=== PATIENT | female | born 1955 | race Caucasian/White ===

== ENCOUNTER 2023-08-16 12:48 | Outpatient (OUT) | payer MEDICARE, OTHER, SELFPAY ==
--- NOTE | 2023-08-16 12:53 | CT_ITS ---
[address] [address] Patient Name: CHUCKY DUNLAP MRN: [id number] date: 1955 Sex: F Assigned Patient Location: CT Current Patient Location: CT Accession/Order Number: [id number] Exam Date: 08/16/2023 13:00 Report Date: 08/16/2023 22:44 At the request of: ZOE LATIF Procedure: CT chest wo con EXAMINATION: CT chest wo con HISTORY: multiple pulmonary nodules follow-up COMPARISON: CT chest 08/29/2022 TECHNIQUE: Multi-planar CT images were obtained without and/or with IV contrast as indicated by examination type. Axial, Coronal, and Sagittal images. Dose reduction techniques were achieved by using automated exposure control and/or adjustment of mA and/or kV according to patient size and/or use of iterative reconstruction technique. FINDINGS: LUNGS: Numerous small irregular lesions/patchy opacities within peripheral lung bases with central cavitation; notably smaller than previously seen, with most now 8 mm. PLEURA: No mass, effusion, or pneumothorax. VASCULATURE: No abnormality. KAREEM: No mass or adenopathy. MEDIASTINUM: No mass or adenopathy. CARDIAC: No enlargement, pericardial thickening, or significant calcification. AORTA: No aneurysm or dissection. CHEST WALL: Surgical clips and scarring within left breast and axilla. No axillary mass or lymphadenopathy. BONES: No bone lesion or fracture. LIMITED ABDOMEN: No suspicious findings Limited images of the upper abdomen. OTHER: Negative. CT/CT chest wo con IMPRESSION: 1. Numerous tiny central cavitary lesions within peripheral lung bases, predominately 8 mm in size, which have decreased in size compared to prior study. Lesions are nonspecific but favor infectious etiology. 2. No lymphadenopathy. Electronically authenticated by: BRIAN RODRIGUEZ Date: 08/16/2023 22:44
== END 2023-08-16 12:49 | disposition home or self-care (01) ==
LOC: CT 12:48
PROVIDERS: PCP Family Medicine; Visit Provider Internal Medicine
DX: R91.8 Other nonspecific abnormal finding of lung field (principal)
CPT/HCPCS: 71250

== ENCOUNTER 2023-08-21 09:53 | Outpatient (OUT) | payer MEDICARE, OTHER, SELFPAY ==
[2023-08-21 11:11] LABS: Alanine Aminotransferase 25 U/L (14-59); Aspartate Amino Transferase 13 U/L (15-37); Chol HDL Ratio 4.8; Cholesterol 209 mg/dL (<=200); HDL Cholesterol 44 mg/dL (40-60); Triglycerides 116 mg/dL (<=150); VLDL CHOLESTEROL 23.2 mg/dL
[2023-08-22 09:12] LABS: C-Reactive Protein, Cardiac 17.92 mg/L (0.00-3.00)
== END 2023-08-21 09:54 | disposition home or self-care (01) ==
LOC: LAB 09:54
PROVIDERS: PCP Family Medicine; Visit Provider Internal Medicine Cardiovascular Disease
DX: E78.2 Mixed hyperlipidemia (principal); I25.10 Atherosclerotic heart disease of native coronary artery without angina pectoris; I25.5 Ischemic cardiomyopathy
CPT/HCPCS: 36415; 80061; 84450; 84460; 86140

== ENCOUNTER 2023-08-21 09:58 | Outpatient (OUT) | payer MEDICARE, OTHER, SELFPAY ==
--- NOTE | 2023-08-21 10:37 | XR_ITS ---
The [address] [address] Patient Name: CHUCKY DUNLAP MRN: [id number] date: 1955 Sex: F Assigned Patient Location: LAB Current Patient Location: LAB Accession/Order Number: [id number] Exam Date: 08/21/2023 10:51 Report Date: 08/21/2023 13:58 At the request of: NON-STAFF PHYSICIAN Procedure: XR shoulder ASIM min 2V EXAM: XR hand ASIM min 3v, XR shoulder ASIM min 2V, XR knee ASIM 4V, XR wrist ASIM min 3V, XR foot ASIM min 3V HISTORY: Bilateral Hand and Wrist Pain, RA COMPARISON: None. TECHNIQUE/FINDINGS: Bilateral wrists and bilateral hands: 3 views of the bilateral wrist and 3 views of the bilateral hands were obtained. There is moderate bilateral joint space narrowing with marginal spurring at the radiocarpal, triscaphe, first carpometacarpal, metacarpophalangeal and interphalangeal joints. No evidence of erosive changes. Bilateral knees: There is severe narrowing of the bilateral tibiofemoral and patellofemoral compartments with marginal tricompartmental spurring along with spurring of the tibial spines. Subchondral sclerosis and irregularity is seen. Bilateral shoulders: No evidence of erosive changes. Severe osteoarthritis is seen at the bilateral acromioclavicular joint and mild osteoarthritis is seen at the bilateral glenohumeral joints. The lungs show mild emphysematous changes. Bilateral feet: Left foot: Evidence of ORIF at the distal fibula and medial malleolus of the tibia. Evidence of osteoarthritis at the tarsometatarsal, metatarsophalangeal and interphalangeal joints without evidence of erosive changes. Plantar calcaneal spur. Enthesopathic changes. Right foot: Plantar calcaneal spur, enthesopathic changes. Severe osteoarthritis is seen at the first tarsometatarsal joint and at the interphalangeal joints of the toes. XR/XR shoulder ASIM min 2V IMPRESSION: Bilateral wrists and bilateral hands: 1. Moderate to severe bilateral polyarticular osteoarthritis. 2. No evidence of erosive changes. Bilateral knees: 1. Advanced osteoarthritis is seen at the bilateral knees worst at the medial compartments. 2. Chondrocalcinosis. Bilateral shoulders: 1. Severe bilateral acromioclavicular joint osteoarthritis and mild glenohumeral joint osteoarthritis. 2. No erosive changes. Bilateral feet: 1. Moderate to severe polyarticular osteoarthritis, worst at the interphalangeal joints of the toes. 2. Bilateral plantar calcaneal spur. 3. Enthesopathic changes. Electronically authenticated by: NIRMAL VELA Date: 08/21/2023 13:58
--- NOTE | 2023-08-21 10:37 | XR_ITS ---
The [address] [address] Patient Name: CHUCKY DUNLAP MRN: [id number] date: 1955 Sex: F Assigned Patient Location: LAB Current Patient Location: LAB Accession/Order Number: [id number] Exam Date: 08/21/2023 10:51 Report Date: 08/21/2023 13:58 At the request of: NON-STAFF PHYSICIAN Procedure: XR wrist ASIM min 3V EXAM: XR hand ASIM min 3v, XR shoulder ASIM min 2V, XR knee ASIM 4V, XR wrist ASIM min 3V, XR foot ASIM min 3V HISTORY: Bilateral Hand and Wrist Pain, RA COMPARISON: None. TECHNIQUE/FINDINGS: Bilateral wrists and bilateral hands: 3 views of the bilateral wrist and 3 views of the bilateral hands were obtained. There is moderate bilateral joint space narrowing with marginal spurring at the radiocarpal, triscaphe, first carpometacarpal, metacarpophalangeal and interphalangeal joints. No evidence of erosive changes. Bilateral knees: There is severe narrowing of the bilateral tibiofemoral and patellofemoral compartments with marginal tricompartmental spurring along with spurring of the tibial spines. Subchondral sclerosis and irregularity is seen. Bilateral shoulders: No evidence of erosive changes. Severe osteoarthritis is seen at the bilateral acromioclavicular joint and mild osteoarthritis is seen at the bilateral glenohumeral joints. The lungs show mild emphysematous changes. Bilateral feet: Left foot: Evidence of ORIF at the distal fibula and medial malleolus of the tibia. Evidence of osteoarthritis at the tarsometatarsal, metatarsophalangeal and interphalangeal joints without evidence of erosive changes. Plantar calcaneal spur. Enthesopathic changes. Right foot: Plantar calcaneal spur, enthesopathic changes. Severe osteoarthritis is seen at the first tarsometatarsal joint and at the interphalangeal joints of the toes. XR/XR wrist ASIM min 3V IMPRESSION: Bilateral wrists and bilateral hands: 1. Moderate to severe bilateral polyarticular osteoarthritis. 2. No evidence of erosive changes. Bilateral knees: 1. Advanced osteoarthritis is seen at the bilateral knees worst at the medial compartments. 2. Chondrocalcinosis. Bilateral shoulders: 1. Severe bilateral acromioclavicular joint osteoarthritis and mild glenohumeral joint osteoarthritis. 2. No erosive changes. Bilateral feet: 1. Moderate to severe polyarticular osteoarthritis, worst at the interphalangeal joints of the toes. 2. Bilateral plantar calcaneal spur. 3. Enthesopathic changes. Electronically authenticated by: NIRMAL VELA Date: 08/21/2023 13:58
--- NOTE | 2023-08-21 10:37 | XR_ITS ---
The [address] [address] Patient Name: CHUCKY DUNLAP MRN: [id number] date: 1955 Sex: F Assigned Patient Location: LAB Current Patient Location: LAB Accession/Order Number: [id number] Exam Date: 08/21/2023 10:50 Report Date: 08/21/2023 13:58 At the request of: NON-STAFF PHYSICIAN Procedure: XR hand ASIM min 3v EXAM: XR hand ASIM min 3v, XR shoulder ASIM min 2V, XR knee ASIM 4V, XR wrist ASIM min 3V, XR foot ASIM min 3V HISTORY: Bilateral Hand and Wrist Pain, RA COMPARISON: None. TECHNIQUE/FINDINGS: Bilateral wrists and bilateral hands: 3 views of the bilateral wrist and 3 views of the bilateral hands were obtained. There is moderate bilateral joint space narrowing with marginal spurring at the radiocarpal, triscaphe, first carpometacarpal, metacarpophalangeal and interphalangeal joints. No evidence of erosive changes. Bilateral knees: There is severe narrowing of the bilateral tibiofemoral and patellofemoral compartments with marginal tricompartmental spurring along with spurring of the tibial spines. Subchondral sclerosis and irregularity is seen. Bilateral shoulders: No evidence of erosive changes. Severe osteoarthritis is seen at the bilateral acromioclavicular joint and mild osteoarthritis is seen at the bilateral glenohumeral joints. The lungs show mild emphysematous changes. Bilateral feet: Left foot: Evidence of ORIF at the distal fibula and medial malleolus of the tibia. Evidence of osteoarthritis at the tarsometatarsal, metatarsophalangeal and interphalangeal joints without evidence of erosive changes. Plantar calcaneal spur. Enthesopathic changes. Right foot: Plantar calcaneal spur, enthesopathic changes. Severe osteoarthritis is seen at the first tarsometatarsal joint and at the interphalangeal joints of the toes. XR/XR hand ASIM min 3v IMPRESSION: Bilateral wrists and bilateral hands: 1. Moderate to severe bilateral polyarticular osteoarthritis. 2. No evidence of erosive changes. Bilateral knees: 1. Advanced osteoarthritis is seen at the bilateral knees worst at the medial compartments. 2. Chondrocalcinosis. Bilateral shoulders: 1. Severe bilateral acromioclavicular joint osteoarthritis and mild glenohumeral joint osteoarthritis. 2. No erosive changes. Bilateral feet: 1. Moderate to severe polyarticular osteoarthritis, worst at the interphalangeal joints of the toes. 2. Bilateral plantar calcaneal spur. 3. Enthesopathic changes. Electronically authenticated by: NIRMAL VELA Date: 08/21/2023 13:58
--- NOTE | 2023-08-21 10:37 | XR_ITS ---
The [address] [address] Patient Name: CHUCKY DUNLAP MRN: [id number] date: 1955 Sex: F Assigned Patient Location: LAB Current Patient Location: LAB Accession/Order Number: [id number] Exam Date: 08/21/2023 10:51 Report Date: 08/21/2023 13:58 At the request of: NON-STAFF PHYSICIAN Procedure: XR foot ASIM min 3V EXAM: XR hand ASIM min 3v, XR shoulder ASIM min 2V, XR knee ASIM 4V, XR wrist ASIM min 3V, XR foot ASIM min 3V HISTORY: Bilateral Hand and Wrist Pain, RA COMPARISON: None. TECHNIQUE/FINDINGS: Bilateral wrists and bilateral hands: 3 views of the bilateral wrist and 3 views of the bilateral hands were obtained. There is moderate bilateral joint space narrowing with marginal spurring at the radiocarpal, triscaphe, first carpometacarpal, metacarpophalangeal and interphalangeal joints. No evidence of erosive changes. Bilateral knees: There is severe narrowing of the bilateral tibiofemoral and patellofemoral compartments with marginal tricompartmental spurring along with spurring of the tibial spines. Subchondral sclerosis and irregularity is seen. Bilateral shoulders: No evidence of erosive changes. Severe osteoarthritis is seen at the bilateral acromioclavicular joint and mild osteoarthritis is seen at the bilateral glenohumeral joints. The lungs show mild emphysematous changes. Bilateral feet: Left foot: Evidence of ORIF at the distal fibula and medial malleolus of the tibia. Evidence of osteoarthritis at the tarsometatarsal, metatarsophalangeal and interphalangeal joints without evidence of erosive changes. Plantar calcaneal spur. Enthesopathic changes. Right foot: Plantar calcaneal spur, enthesopathic changes. Severe osteoarthritis is seen at the first tarsometatarsal joint and at the interphalangeal joints of the toes. XR/XR foot ASIM min 3V IMPRESSION: Bilateral wrists and bilateral hands: 1. Moderate to severe bilateral polyarticular osteoarthritis. 2. No evidence of erosive changes. Bilateral knees: 1. Advanced osteoarthritis is seen at the bilateral knees worst at the medial compartments. 2. Chondrocalcinosis. Bilateral shoulders: 1. Severe bilateral acromioclavicular joint osteoarthritis and mild glenohumeral joint osteoarthritis. 2. No erosive changes. Bilateral feet: 1. Moderate to severe polyarticular osteoarthritis, worst at the interphalangeal joints of the toes. 2. Bilateral plantar calcaneal spur. 3. Enthesopathic changes. Electronically authenticated by: NIRMAL VELA Date: 08/21/2023 13:58
--- NOTE | 2023-08-21 10:37 | XR_ITS ---
The [address] [address] Patient Name: CHUCKY DUNLAP MRN: [id number] date: 1955 Sex: F Assigned Patient Location: LAB Current Patient Location: LAB Accession/Order Number: [id number] Exam Date: 08/21/2023 10:51 Report Date: 08/21/2023 13:58 At the request of: NON-STAFF PHYSICIAN Procedure: XR knee ASIM 4V EXAM: XR hand ASIM min 3v, XR shoulder ASIM min 2V, XR knee ASIM 4V, XR wrist ASIM min 3V, XR foot ASIM min 3V HISTORY: Bilateral Hand and Wrist Pain, RA COMPARISON: None. TECHNIQUE/FINDINGS: Bilateral wrists and bilateral hands: 3 views of the bilateral wrist and 3 views of the bilateral hands were obtained. There is moderate bilateral joint space narrowing with marginal spurring at the radiocarpal, triscaphe, first carpometacarpal, metacarpophalangeal and interphalangeal joints. No evidence of erosive changes. Bilateral knees: There is severe narrowing of the bilateral tibiofemoral and patellofemoral compartments with marginal tricompartmental spurring along with spurring of the tibial spines. Subchondral sclerosis and irregularity is seen. Bilateral shoulders: No evidence of erosive changes. Severe osteoarthritis is seen at the bilateral acromioclavicular joint and mild osteoarthritis is seen at the bilateral glenohumeral joints. The lungs show mild emphysematous changes. Bilateral feet: Left foot: Evidence of ORIF at the distal fibula and medial malleolus of the tibia. Evidence of osteoarthritis at the tarsometatarsal, metatarsophalangeal and interphalangeal joints without evidence of erosive changes. Plantar calcaneal spur. Enthesopathic changes. Right foot: Plantar calcaneal spur, enthesopathic changes. Severe osteoarthritis is seen at the first tarsometatarsal joint and at the interphalangeal joints of the toes. XR/XR knee ASIM 4V IMPRESSION: Bilateral wrists and bilateral hands: 1. Moderate to severe bilateral polyarticular osteoarthritis. 2. No evidence of erosive changes. Bilateral knees: 1. Advanced osteoarthritis is seen at the bilateral knees worst at the medial compartments. 2. Chondrocalcinosis. Bilateral shoulders: 1. Severe bilateral acromioclavicular joint osteoarthritis and mild glenohumeral joint osteoarthritis. 2. No erosive changes. Bilateral feet: 1. Moderate to severe polyarticular osteoarthritis, worst at the interphalangeal joints of the toes. 2. Bilateral plantar calcaneal spur. 3. Enthesopathic changes. Electronically authenticated by: NIRMAL VELA Date: 08/21/2023 13:58
[2023-08-21 10:40] LABS: Basophils Absolute Auto 0.1 10^3/uL (0.0-0.1); Basophils Percent Auto 0.9 % (0.2-2.0); Eosinophils Absolute Auto 0.3 10^3/uL (0.0-0.7); Eosinophils Percent Auto 2.7 % (0.9-7.0); Hematocrit 35.4 % (36.0-48.0); Immature Granulocytes Abs Auto 0.04 10^3/uL (0.00-0.03); Immature Granulocytes Pct Auto 0.4 % (0.0-0.5); Lymphocytes Absolute Auto 2.3 10^3/uL (1.2-3.8); Lymphocytes Percent Auto 22.1 % (20.5-60.0); Mean Corpuscular HGB Conc 31.1 g/dL (29.9-35.2); Mean Corpuscular Hemoglobin 30.5 pg (26.7-34.0); Mean Corpuscular Volume 98.1 fL (81.0-99.0); Mean Platelet Volume 11.8 fL (9.5-13.5); Monocytes Percent Auto 9.5 % (1.7-12.0); Neutrophils Absolute Auto 6.6 10^3/uL (1.4-6.5); Neutrophils Percent Auto 64.4 % (43.0-75.0); Platelet Count 245 10^3/uL (150-450); Red Blood Count 3.61 10^6/uL (4.20-5.40); White Blood Count 10.3 10^3/uL (4.0-11.0)
[2023-08-21 10:44] LABS: Erythrocyte Sedimentation Rate 100 mm/hr (<=30)
[2023-08-21 11:12] LABS: Alanine Aminotransferase 23 U/L (14-59); Albumin Globulin Ratio 0.7; Alkaline Phosphatase 83 U/L (46-116); Anion Gap 11.6; Aspartate Amino Transferase 11 U/L (15-37); BUN Creatinine Ratio 16.3; Bilirubin Total 0.4 mg/dL (0.2-1.0); Calcium 9.3 mg/dL (8.5-10.1); Carbon Dioxide 27.1 mmol/L (21.0-32.0); Chloride 105 mmol/L (98-107); Estimated GFR (African America >60 (>=60); Estimated GFR (Non-African Ame 53 (>=60); Globulin 4.1 g/dL; Glucose 85 mg/dL (74-106); Potassium 3.7 mmol/L (3.5-5.1); Sodium 140 mmol/L (136-145); Total Protein 7.1 g/dL (6.4-8.2); Uric Acid 6.9 mg/dL (2.6-6.0)
[2023-08-21 12:05] LABS: Bilirubin Urine NEGATIVE (NEGATIVE); Blood Urine NEGATIVE (NEGATIVE); Clarity Urine CLEAR (CLEAR); Color Urine LT. YELLOW (YELLOW); Glucose Urine UA NEGATIVE (NEGATIVE); Ketones Urine NEGATIVE (NEGATIVE); Leukocyte Esterase Urine SMALL (NEGATIVE); Nitrite Urine NEGATIVE (NEGATIVE); Protein Urine NEGATIVE (NEG/TRACE); Specific Gravity Urine 1.015 (1.005-1.025); Urobilinogen Urine 0.2 EU/dL (0.2-1.0)
[2023-08-22 04:09] LABS: Rheumatoid Factor (RF) 376.7 IU/mL (<14.0)
[2023-08-22 06:09] LABS: HBsAg Screen Negative (Negative); HCV Antibody Non Reactive (Non Reactive); Hep B Core Ab, IgM Negative (Negative); Hepatitis B Surf Ab Quant <3.1 mIU/mL (Immunity>9.9)
[2023-08-22 12:08] LABS: Anti-CCP Ab, IgG/IgA >250 units (0-19)
[2023-08-23 09:09] LABS: QuantiFERON-TB Gold Plus Negative (Negative)
[2023-08-23 16:09] LABS: Antinuclear Antibodies, IFA Positive (.)
== END 2023-08-21 09:59 | disposition home or self-care (01) ==
LOC: LAB 10:01
PROVIDERS: PCP Family Medicine
DX: E78.2 Mixed hyperlipidemia (principal); I25.10 Atherosclerotic heart disease of native coronary artery without angina pectoris; I25.5 Ischemic cardiomyopathy; M05.9 Rheumatoid arthritis with rheumatoid factor, unspecified; I10 Essential (primary) hypertension; E11.9 Type 2 diabetes mellitus without complications; M17.0 Bilateral primary osteoarthritis of knee; M11.262 Other chondrocalcinosis, left knee; M11.261 Other chondrocalcinosis, right knee; M19.012 Primary osteoarthritis, left shoulder; M19.011 Primary osteoarthritis, right shoulder; M19.072 Primary osteoarthritis, left ankle and foot; M19.071 Primary osteoarthritis, right ankle and foot; M77.32 Calcaneal spur, left foot; M77.31 Calcaneal spur, right foot
CPT/HCPCS: 36415; 73030; 73110; 73130; 73564; 73630; 80053; 80061; 81003; 84450; 84460; 84550; 85025; 85652; 86038; 86140; 86200; 86430; 86431; 86480; 86706; 86803; 87340

== ENCOUNTER 2023-09-28 12:26 | Outpatient (OUT) | payer MEDICARE, OTHER, SELFPAY ==
[2023-09-28 13:07] LABS: Basophils Absolute Auto 0.1 10^3/uL (0.0-0.1); Basophils Percent Auto 0.5 % (0.2-2.0); Eosinophils Absolute Auto 0.2 10^3/uL (0.0-0.7); Eosinophils Percent Auto 1.8 % (0.9-7.0); Hematocrit 35.3 % (36.0-48.0); Hemoglobin 10.9 g/dL (12.0-16.0); Immature Granulocytes Abs Auto 0.05 10^3/uL (0.00-0.03); Immature Granulocytes Pct Auto 0.5 % (0.0-0.5); Lymphocytes Absolute Auto 1.8 10^3/uL (1.2-3.8); Lymphocytes Percent Auto 18.2 % (20.5-60.0); Mean Corpuscular HGB Conc 30.9 g/dL (29.9-35.2); Mean Corpuscular Hemoglobin 30.4 pg (26.7-34.0); Mean Corpuscular Volume 98.3 fL (81.0-99.0); Mean Platelet Volume 11.2 fL (9.5-13.5); Monocytes Absolute Auto 0.4 10^3/uL (0.3-0.8); Monocytes Percent Auto 4.2 % (1.7-12.0); Neutrophils Absolute Auto 7.5 10^3/uL (1.4-6.5); Neutrophils Percent Auto 74.8 % (43.0-75.0); Platelet Count 261 10^3/uL (150-450); Red Blood Count 3.59 10^6/uL (4.20-5.40); Red Cell Distribution Width 14.8 % (11.0-15.0)
[2023-09-28 13:30] LABS: Alanine Aminotransferase 31 U/L (14-59); Estimated GFR (African America 59 (>=60); Estimated GFR (Non-African Ame 49 (>=60)
[2023-09-28 13:33] LABS: C Reactive Protein 1.87 mg/dL (<=0.50)
[2023-09-28 13:41] LABS: Erythrocyte Sedimentation Rate 82 mm/hr (<=30)
== END 2023-09-28 12:27 | disposition home or self-care (01) ==
LOC: LAB 12:26
PROVIDERS: PCP Family Medicine
DX: M05.9 Rheumatoid arthritis with rheumatoid factor, unspecified (principal)
CPT/HCPCS: 36415; 82042; 82565; 84460; 85025; 85652; 86140

== ENCOUNTER 2023-11-02 12:12 | Outpatient (OUT) | payer MEDICARE, OTHER, SELFPAY ==
--- OUTSIDE RECORDS SUMMARY | 2023-11-02 12:16 | XMS_ITS | CCD ---
Author Name Unknown Address [address] [place] [address] Organization [facility] Care Team Providers Care Trial Justice Name Role Phone Hussain Reese Good Unavailable Unavailable Unavailable DO Reese Nixon Primary Care Provider MD Marcin Patel Attending Provider DO Salty Gonzalez Attending Provider DO Salty Gonzalez Referring Provider MD Floresita Gonzalez Attending Provider DO Reese Nixon Primary Care Provider MD Marcin Patel Attending Provider [phone] DO Reese Nixon Primary Care Provider DO Salty Gonzalez Referring Provider MD Floresita Gonzalez Attending Provider RASHIDA, DR SADLER Attending Unavailable HALADAY, DR SADLER Admitting Unavailable HALADAY, DR SADLER Consulting Unavailable HOUSE, DR LEIGH Primary Care Unavailable HALADAY, DR SADLER Admitting Unavailable HALADAY, DR SADLER Consulting Unavailable HOUSE, DR LEIGH Primary Care Unavailable HALADAY, DR SADLER Attending Unavailable HOUSE, DR LEIGH Primary Care Unavailable HOUSE, DR LEIGH Consulting Unavailable HOUSE, DR LEIGH Attending Unavailable HOUSE, DR LEIGH Admitting Unavailable HALADAY, DR SADLER Attending Unavailable HALADAY, DR SADLER Admitting Unavailable HALADAY, DR SADLER Consulting Unavailable HUSSAIN, DR LEIGH Primary Care Unavailable STEVEN, DR LUKE Cordoba Attending Unavailabl cleopatra HERRMANN, DR LUKE Cordoba Admitting Unavailabl e HUSSAIN, DR LEIGH Primary Care Unavailable STEVEN, DR LUKE Cordoba Consulting Unavailabl e RASHIDA, DR SADLER Attending Unavailable HALADAY, DR SADLER Admitting Unavailable HALADAY, DR SADLER Consulting Unavailable HOUSE, DR LEIGH Primary Care Unavailable STEVEN, DR LUKE Cordoba Admitting Unavailabl e HALADAY, DR SADLER Consulting Unavailable HOUSE, DR LEIGH Primary Care Unavailable STEVEN, DR LUKE Cordoba Attending Unavailabl e STEVEN, DR LUKE Cordoba Consulting Unavailabl e HALADAY, DR SADLER Attending Unavailable HALADAY, DR SADLER Admitting Unavailable HALADAY, DR SADLER Consulting Unavailable HOUSE, DR LEIGH Primary Care Unavailable SAMSA, ZOE Attending Unavailable SAMSA, ZOE Admitting Unavailable WEST, DR ISAAC Siu Consulting Unavailable HOUSE, DR LEIGH Primary Care Unavailable SAMSA, ZOE Consulting Unavailable HALADAY, DR SADLER Attending Unavailable HALADAY, DR SADLER Admitting Unavailable HALADAY, DR SADLER Consulting Unavailable HOUSE, DR LEIGH Primary Care Unavailable SAMSA, ZOE Attending Unavailable SAMSA, ZOE Admitting Unavailable SAMSA, ZOE Consulting Unavailable HOUSE, DR LEIGH Primary Care Unavailable HOUSE, DR LEIGH Attending Unavailable HOUSE, DR LEIGH Admitting Unavailable HOUSE, DR LEIGH Primary Care Unavailable WEST, DR ISAAC Siu Consulting Unavailable HOUSE, DR LEIGH Consulting Unavailable House, DO Leigh Primary Care Provider DO Salty Gonzalez Referring Provider [phone] MD Floresita Gonzalez Attending Provider Hussain, Dr. Reese [facility] Lisava dora Herrmann, Dr. Luke Lloyd Attending Sheila Herrmann, Dr. Luke Lloyd Referring Sheila Nixon, Dr. Reese [facility] Lisava dora Herrmann, Dr. Luke Lloyd Attending DO Reese Martinez Primary Care Provider DO Salty Gonzalez Referring Provider [phone] MD Floresita Gonzalez Attending Provider [phone] [place] Reese KELLER Primary Care Provider LUKE HERRMANN Attending Unavailable HUSSAIN, REESE VERDUZCO Primary Care Unavailab le Hussain, DO Leigh Primary Care Provider [phone] DO Salty Gonzalez Referring Provider MD Floresita Gonzalez Attending Provider [phone] Reese Nixon Primary Care Unavailable Salty Gonzalez Admitting Unavailable Salty Gonzalez Attending Unavailable Reese Nixon Primary Care Unavailable Floresita Gonzalez Admitting Unavailable Floresita Gonzalez Attending Unavailable Salty Gonzalez Referring Unavailable Ant Gregory MD Attending Unavailable REESE NIXON Primary Care Unavailable Ant Gregory MD Attending Unavailable REESE NIXON Primary Care Unavailable Ant Gregory MD Attending Unavailable REESE NIXON Primary Care Unavailable Medications Current Medications Medication Drug Class(es) Dates Sig (Normalized) Sig (Original) acetaminophen 325 mg / oxyCODONE hydrochloride 5 mg oral tablet (20 sources) Opioid Agonist Start: 08-23-2021 take 1 tablet by mouth three times daily Oxycodone-Acetamin ophen (Percocet) 5-325 mg Tablet Active 1 TAB PO Three times daily August 23, 2021 12:00am atorvastatin 40 mg oral tablet (20 sources) HMG-CoA Reductase Inhibitor Start: 12-14-2021 take 80 mg by mouth once daily at bedtime Atorvastatin Active 80 MG PO Daily at bedtime December 14, 2021 12:00am Start: 10-28-2021 take 1 tablet by ivanna th once daily at bedtime atorvastatin (Lipitor) 40 mg tablet Take 1 tablet (40 mg) by mouth once daily at bedtime. 0 10/28/2021 Active Start: 08-27-2021 End: 12-14-2021 take 80 mg by mouth once daily in the evening Atorvastatin Discontinued 80 MG PO Every evening 30 August 27, 2021 12:00am December 14, 2021 2:17pm carvedilol 12.5 mg oral tablet (20 sources) alpha-Adrenergic Althea, beta-Adrenergic Althea Start: 10-12-2021 take 12.5 mg by mouth twice daily Carvedilol Active 12.5 MG PO Twice daily December 14, 2021 12:00am Start: 08-31-2021 take 1 tablet by ivanna th twice daily Carvedilol 6.25 MG Oral Tablet Take 1 tablet twice daily Quantity: 180 Refills: 3 Ordered: 31-Aug-2021 Luke Herrmann DO Start : 31-Aug-2021 Active clopidogrel 75 mg oral tablet (20 sources) P2Y12 Platelet Inhibitor Start: 09-03-2021 End: 10-25-2024 take 75 mg by mouth once daily in the morning Clopidogrel Active 75 MG PO Every morning December 14, 2021 12:00am folic acid 1 mg oral tablet (1 source) Start: 10-25-2023 take 1 mg by mouth once daily Folic Acid Active 1 MG PO Daily October 25, 2023 12:00am ibuprofen 600 mg oral tablet (7 sources) Nonsteroidal Anti-inflammatory Drug Start: 12-28-2021 Ibuprofen Active 600 MG PO EVERY 4-6 HOURS 04 08December 27, 2021 11:00pm do not exceed 4 doses in a 24 hour period 3 ml insulin aspart protamine, human 70 unt/ml / insulin aspart, human 30 unt/ml pen injector (14 sources) Insulin Analog Start: 08-26-2021 Insulin Asp Prt-Insulin Aspart (Novolog Mix 70-30flexpen U-100) 100 unit/mL (70-30) insulin pen Active 34 UNIT SUBCUT Every morning August 26, 2021 12:00am Start: 08-26-2021 Insulin Asp Pr t-Insulin Aspart (Novolog Mix 70-30flexpen U- 100) 100 unit/mL (70-30) insulin pen Active 15 UNIT SUBCUT Every evening August 26, 2021 12:00am insulin aspart, human 100 un t/ml injectable solution (20 sources) Insulin Analog insulin aspart ( NovoLOG) 100 unit/mL refill for patient own pump Inject under the skin. 0 Active NovoLOG FlexPen 100 UNIT/ML SOLN INJECT SUBCUTANEOUSLY DIRECTED. Quantity: 0 Refills: 0 Ordered: 30-Aug-2021 DO Active 3 ml insulin degludec 100 unt/ml pen injector (20 sources) Insulin Analog Start: 01-10-2022 inject 10 [IU] by subcutaneous injection once daily Insulin Degludec (Tresiba Flextouch U-100) 100 unit/mL (3 mL) Insulin Pen Active 10 UNIT SUBCUT Daily January 10, 2022 2:04pm Start: 08-26-2021 End: 01-13-2022 Insulin Degludec (Tresiba Fl extouch U-100) 100 unit/mL (3 mL) insulin pen Discontinued 60 UNIT SUBCUT Daily at bedtime August 26, 2021 12:00am January 13, 2022 7:18am insulin degludec (Tresiba U-100 Insulin) 100 unit/mL injection Inject under the skin. 0 Active Tresiba 100 UNIT /ML Subcutaneous Solution INJECT SUBCUTANEOUSLY DIRECTED Quantity: 0 Refills: 0 Ordered: 30-Aug-2021 DO Active Insulin Degludec (Tresiba Flextouch U-100) 100 unit/mL (3 mL) Insulin Pen (4 sources) Start: 01-10-2022 Insulin Deglud ec (Tresiba Flextouch U-100) 100 unit/mL (3 mL) Insulin Pen Active 60 UNIT SUBCUT Daily January 10, 2022 12:00am Start: 01-10-2022 Insulin Deglud ec (Tresiba Flextouch U-100) 100 unit/mL (3 mL) Insulin Pen Active 60 UNIT SUBCUT Daily January 09, 2022 11:00pm levothyroxine sodium 0.112 mg oral tablet (20 sources) l-Thyroxine Start: 08-23-2021 take 1 tablet by mouth once daily Levothyroxine (Synthroid) 112 mcg Tablet Active 112 MCG PO Daily August 23, 2021 12:00am 0.3 ml methotrexate 50 mg/ml auto-injector (1 source) Folate Analog Metabolic Inhibitor Start: 10-25-2023 inject 15 mg by subcutaneous injection every week Methotrexate (Pf) Active 15 MG SUBCUT every week October 25, 2023 12:00am nitroglycerin 0.4 mg sublingual tablet (20 sources) Nitrate Vasodilator Start: 12-21-2021 nitroglycerin (Nitrostat) 0.[address] 1 TABLET UNDER THE TONGUE EVERY 5 MINUTES FOR UP TO 3 DOSES NEEDED FOR CHEST PAIN.CALL 911 IF PAIN PERSISTS. 0 12/21/2021 Active Start: 08-27-2021 Nitroglycerin Active 0.4 MG SUBLINGUAL Every 5 minutes x 3 doses August 27, 2021 12:00am predniSONE 10 mg oral tablet (8 sources) Start: 10-25-2023 take 10 mg by mouth once daily Prednisone Active 10 MG PO Daily October 25, 2023 12:00am Start: 12-14-2021 End: 07-24-2023 take 5 mg by mouth once daily Prednisone Discontinued 5 MG PO Daily December 14, 2021 12:00am July 24, 2023 11:04am sacubitril 49 mg / valsartan 51 mg oral tablet (20 sources) Angiotensin 2 Receptor Althea Start: 08-31-2021 End: 08-09-2024 take 1 tablet by mouth twice daily Sacubitril-Valsartan (Entresto) 49-51 mg tablet Active 1 TAB PO Twice daily December 14, 2021 12:00am Start: 08-31-2021 take 1 tablet by ivanna th twice daily Entresto 24-26 MG Oral Tablet TAKE 1 TABLET BY MOUTH TWICE A DAY Quantity: 180 Refills: 3 Ordered: 31-Aug-2021 Luke Herrmann DO Start : 31-Aug-2021 Active spironolactone 25 mg oral tablet (20 sources) Aldosterone Antagonist Start: 08-10-2023 take 1 tablet by mouth once daily spironolactone (Aldactone) 25 mg tablet Indications: Primary hypertension Take 1 tablet (25 mg) by mouth once daily. 90 tablet 3 08/10/2023 Active Start: 10-28-2021 End: 08-10-2023 take 25 mg by mouth once daily in the morning Spironolactone Discontinued 25 MG PO Every morning December 14, 2021 12:00am December 28, 2021 7:15am Start: 10-12-2021 take 0.5 tablet by m outh once daily Spironolactone 25 MG Oral Tablet TAKE 0.5 TABLET Daily Quantity: 45 Refills: 3 Ordered: 12-Oct-2021 Salima Nguyễn Start : 12-Oct-2021 Active new start Completed/Discontinued Medications Medication Drug Class(es) Dates Sig (Normalized) Sig (Original) anastrozole 1 mg oral tablet (13 sources) Aromatase Inhibitor Start: 02-03-20 End: 04-04-20 22 take 1 mg by mouth once daily Anastrozole Discontinued 1 MG PO Daily February 01, 2022 11:00pm April 04, 2022 10:47am aspirin 81 mg delayed release oral tablet (20 sources) Platelet Aggregation Inhibitor, Nonsteroidal Anti-inflammatory Drug Start: 08-27-20 End: 10-25-19 24 take 81 mg by mouth once daily Aspirin Discontinued 81 MG PO Daily December 14, 2021 2:19pm October 25, 2023 12:56pm colchicine 0.6 mg oral tablet (13 sources) Start: 08-27-20 End: 12-15-19 22 take 0.6 mg by mouth once daily Colchicine Discontinued 0.6 MG PO Daily 14 14 August 27, 2021 12:00am December 14, 2021 2:17pm furosemide 20 mg oral tablet (3 sources) Loop Diuretic Start: 08-31-20 21 take 1 tablet by mouth once daily Furosemide 20 MG Oral Tablet TAKE 1 TABLET DAILY for 2 weeks Quantity: 14 Refills: 1 Ordered: 31-Aug-2021 Luke Herrmann DO Start : 31-Aug-2021 Active call for refills hydroCHLOROthiazide 12.5 mg / olmesartan medoxomil 40 mg oral tablet (7 sources) Thiazide Diuretic, Angiotensin 2 Receptor Althea Start: 08-26-20 21 End: 08-27-20 21 take 1 tablet by mouth once daily Olmesartan-Hydrochlor othiazide Discontinued 1 TAB PO Daily August 26, 2021 12:00am August 27, 2021 2:52pm hydroxychloroquine sulfate 200 mg oral tablet (7 sources) Antimalarial, Antirheumatic Agent Start: 12-15-19 22 End: 10-25-19 24 take 200 mg by mouth once daily in the morning Hydroxychloroquine Discontinued 200 MG PO Every morning December 14, 2021 12:00am October 25, 2023 12:56pm 3 ml insulin lispro 100 unt/ml pen injector (7 sources) Insulin Analog Start: 08-23-20 End: 08-26-20 21 Insulin Lispro (Humalog Kwikpen Insulin) 100 unit/mL Insulin Pen Discontinued SUBCUT August 23, 2021 12:00am August 26, 2021 2:22pm leflunomide 20 mg oral tablet (13 sources) Antirheumatic Agent Start: 08-23-20 21 End: 10-25-19 24 take 20 mg by mouth once daily Leflunomide Discontinued 20 MG PO Daily August 23, 2021 12:00am October 25, 2023 12:59pm letrozole 2.5 mg oral tablet (6 sources) Aromatase Inhibitor Start: 04-20-20 23 End: 08-01-20 23 take 2.5 mg by mouth once daily Letrozole Discontinued 2.5 MG PO Daily July 25, 2023 1:23pm August 01, 2023 7:19am methylPREDNISolone 4 mg oral tablet (1 source) Corticosteroid Start: 07-24-20 23 End: 10-25-19 24 take 1 tablet by mouth once daily Methylprednisolone (Medrol (Hussain)) 4 mg Tablets,Dose Pack Discontinued 4 MG PO Daily July 23, 2023 11:00pm October 25, 2023 12:57pm mometasone furoate 1 mg/ml topical cream (5 sources) Corticosteroid Start: 02-03-20 End: 10-25-19 Mometasone Discontinued 1 APPLIC TOPICAL Daily 45 February 01, 2022 11:00pm October 25, 2023 12:56pm nystatin 100 unt/mg topical powder (8 sources) Polyene Antifungal Start: 10-13-20 End: 10-25-19 Nystatin (Nystop) 100,000 unit/gram Powder Discontinued 1 APPLIC TOPICAL Twice daily October 13, 2022 8:55am October 25, 2023 12:57pm dispense one bottle olmesartan medoxomil 40 mg oral tablet (7 sources) Angiotensin 2 Receptor Althea Start: 08-23-20 End: 08-26-20 take 1 tablet by mouth once daily Olmesartan (Benicar) 40 mg Tablet Discontinued 40 MG PO Daily August 23, 2021 12:00am August 26, 2021 2:24pm prednisoLONE 5 mg oral tablet (13 sources) Corticosteroid take 1 tablet by mouth once daily prednisoLONE 5 MG Oral Tablet Take 1 tablet daily Quantity: 0 Refills: 0 Ordered: 28-Oct-2021 DO Active ticagrelor 90 mg oral tablet (9 sources) Start: 08-27-20 End: 12-15-19 take 1 tablet by mouth twice daily Ticagrelor (Brilinta) 90 mg Tablet Discontinued 90 MG PO Twice daily 180 90 August 27, 2021 12:00am December 14, 2021 2:19pm Problems Active Problems Problem Classification Problem Date Documented Da te Episodic/Chronic Acute myocardial infarction (20 sources) Myocardial infarction; Translations: [Acute myocardial infarction of unspecified site, episode of care unspecified] 08-23-2021 Chronic Cancer of breast (20 sources) Malignant tumor of breast ; Translations: [Malignant neoplasm of unspecified site of left female breast] 01-12-2022 Chronic Coronary atherosclerosis and other heart disease (20 sources) Ischemic myocardial dysfunction; Translations: [Other specified forms of chronic ischemic heart disease] Onset: 12-28-2021 Chronic Coronary atherosclerosis and other heart disease (2 sources) Presence of coronary angioplasty implant and graft; Translations: [Presence of coronary angioplasty implant and graft] Onset: 08-10-2023 Episodic Diabetes mellitus with complications (3 sources) Type 2 diabetes mellitus; Translations: [Type 2 diabetes mellitus with other specified complication] Onset: 08-09-2023 08-10-2023 Chronic Diabetes mellitus without complication (20 sources) Diabetes mellitus; Translations: [Diabetes mellitus without mention of complication, type II or unspecified type, not stated as uncontrolled] Onset: 08-09-2023 01-12-2022 Chronic Disorders of lipid metabolism (20 sources) Mixed hyperlipidemia; Translations: [Mixed hyperlipidemia] Onset: 11-14-2022 08-10-2023 Chronic Essential hypertension (20 sources) Hypertensive disorder; Translations: [Unspecified essential hypertension] Onset: 12-28-2021 01-12-2022 Chronic Mycoses (6 sources) Candidiasis of skin; Translations: [Candidiasis of skin and nail] 10-13-2022 Episodic Osteoarthritis (4 sources) Unspecified osteoarthritis, unspecified site; Translations: [UNSPECIFIED OSTEOARTHRITIS UNS SITE] Onset: 01-26-2022 Chronic Other aftercare (5 sources) Prophylactic aromatase inhibitors given; Translations: [senior care (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 aromatase inhibitors] 02-03-2022 Episodic Other aftercare (4 sources) 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; Translations: [Use of aromatase inhibitors] 10-13-2022 Episodic Other aftercare (1 source) Other intermediate teacher (current) drug therapy; Translations: [OTH GROUP HOME CURRENT DRUG THERAPY] Onset: 11-14-2022 Episodic Other bone disease and musculoskeletal deformities (5 sources) Osteopenia; Translations: [Other specified disorders of bone density and structure, unspecified site] 02-03-2022 Episodic Other bone disease and musculoskeletal deformities (4 sources) Other specified disorders of bone density and structure, unspecified site; Translations: [Disorder of bone and cartilage, unspecified] 10-13-2022 Episodic Other lower respiratory disease (6 sources) Multiple nodules of lung; Translations: [Other nonspecific abnormal finding of lung field] 01-13-2022 Episodic Other lower respiratory disease (9 sources) Other nonspecific abnormal finding of lung field; Translations: [Other nonspecific abnormal finding of lung field] Onset: 08-29-2022 Episodic Other nutritional; endocrine; and metabolic disorders (20 sources) Body mass index 40+ - severely obese; Translations: [Morbid obesity] Chronic Other nutritional; endocrine; and metabolic disorders (2 sources) Severe obesity; Translations: [Morbid (severe) obesity due to excess calories] Onset: 08-10-2023 08-10-2023 Chronic Other nutritional; endocrine; and metabolic disorders (2 sources) Morbid (severe) obesity due to excess calories; Translations: [Morbid (severe) obesity due to excess calories (CMS/HCC)] Onset: 08-10-2023 Chronic Other nutritional; endocrine; and metabolic disorders (2 sources) Body mass index (BMI) 40.0-44.9, adult; Translations: [Body mass index (BMI) 40.0-44.9, adult (CMS/HCC)] Onset: 08-10-2023 Chronic Other screening for suspected conditions (not mental disorders or infectious disease) (11 sources) Head scan abnormal; Translations: [Abnormal brain scan] 01-13-2022 Episodic Residual codes; unclassified (1 source) Estrogen receptor positive status [ER+]; Translations: [Estrogen receptor positive status [ER+]] Onset: 10-25-2023 Episodic Rheumatoid arthritis and related disease (20 sources) Rheumatoid arthritis; Translations: [Rheumatoid arthritis] Onset: 06-16-2022 Chronic Thyroid disorders (20 sources) Hypothyroidism; Translations: [Unspecified acquired hypothyroidism] Onset: 08-09-2023 08-09-2023 Chronic Unclassified (1 source) Malignant neoplasm of 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 21#1.00OTGTIFF [facility] Outside [facility] 10-31-2023 Outside Records [id number] [address] [place] [address] Outside [facility] 10-04-2023 Outside Records [id number] 7[address] Outside [facility] 09-19-2023 Outside Records [id number] [address] [place] [address] Outside [facility] 08-30-2023 Outside Records [id number] [address] Patient Provided Health Data on 08-03-2023 Patient Provided Health Data [id number] [address] Patient Handouton 07-14-2023 Patient Handout [id number] [address] MM diagnostic mammo BI w/CAD on 11-30-2022 MM diagnostic mammo BI w/CAD [facility] [place] [address] Mammography Report Signed Patient: Chucky Dunlap MR#: [id number] : 1955 Acct:[id number] Age/Sex: 66 / F ADM Date: 11/30/22 Loc: DC Room: Type: [facility] Attending Dr: Salty Gonzalez DO Copies to: DO Salty James DO Ordering Provider: Salty Gonzalez DO Date of Service: 11/30/22 MM/MM diagnostic mammo BI w/CAD: Yrly mamms;Malignant neoplasm of upper- outer quadrant of lef CLINICAL DATA: History of left breast cancer. BILATERAL DIAGNOSTIC MAMMOGRAMS - FULL FIELD DIGITAL WITH TOMOSYNTHESIS AND CAD Tomosynthesis craniocaudal and mediolateral oblique views of both breasts were obtained using low- dose digital technique. Comparison is made to prior studies from October 2022 2 through December 28, 2019 (left) sees. This examination was reviewed with the aid of CAD. There are scattered fibroglandular densities. There is new postoperative scarring at the lateral left breast where hemostasis clips and BioZorb are visualized. A few benign calcifications are seen. There are no developing masses, typically malignant calcifications or architectural distortion. MM/MM diagnostic mammo BI w/CAD IMPRESSION: NO NEW MAMMOGRAPHIC EVIDENCE OF MALIGNANCY. ROUTINE FOLLOW-UP IS RECOMMENDED IN ONE YEAR. RESULT CODE: 2 Benign Findings(s) DENSITY CODE: 2 (approximately 25-50% glandular) FOLLOW UP: 1YR The false-negative rate of mammography is approximately 10-percent. Management of a palpable abnormality must be based on clinical grounds. Patient was entered into a reminder system with a target due date for the next mammogram. Impression dictated by: Oly Howe M.D.11/30/2022 3:14 PM Dictation Location: [facility] Transcribed By: [facility] 11/30/22 1514 Dictated By: Oly Howe MD 11/30/22 1451 Signed By: 11/30/22 1514 [facility] CBC AUTO DIFFon 11-12-2022 BASO # 0.1 103/ul Normal 0.0-0.1 [facility] Comment on above: Performed By: #### C BC #### [facility] [address] [place] [address] Dr. Jessica Saravia Basophils/100 WBC (Bld) 1.4 % Normal 0.2-2.0 [facility] Comment on above: Performed By: #### C BC #### [facility] [address] [address] [address] Jessica Saravia EO # 0.4 103/ul Normal 0.0-0.7 [facility] Comment on above: Performed By: #### C BC #### [facility] [address] [place] [address] Dr. Jessica Saravia Eosinophils/100 WBC (Bld) 6.1 % Normal 0.9-7.0 [facility] Comment on above: Performed By: #### C BC #### [facility] [address] [place] [address] Dr. Jessica Saravia Erythrocyte distribution width (RBC) [Ratio] 14.9 % Normal 11.0-15.0 [facility] Comment on above: Performed By: #### C BC #### [facility] [address] [place] [address] Dr. Jessica Saravia Hematocrit (Bld) [Volume fraction] 34.7 % Critically low 36.0-48.0 [facility] Comment on above: Performed By: #### C BC #### [facility] [address] [place] [address] Dr. Jessica Saravia Hemoglobin (Bld) [Mass/Vol] 11.3 g/dL Critically low 12.0-16.0 [facility] Comment on above: Performed By: #### C BC #### [facility] [address] [place] [address] Dr. Jessica Saravia IG # 0.03 10e3/ul Normal 0.00-0.03 [facility] Comment on above: Performed By: #### C BC #### [facility] [address] [place] [address] Dr. Jessica Saravia IG % 0.4 % Normal 0.0-0.5 [facility] Comment on above: Performed By: #### C BC #### [facility] [address] [place] [address] Dr. Jessica Saravia LYMPH # 1.4 103/ul Normal 1.2-3.8 [facility] Comment on above: Performed By: #### C BC #### [facility] [address] [place] [address] Dr. Jessica Saravia Lymphocytes/100 WBC (Bld) 20.4 % Critically low 20.5-60.0 [facility] Comment on above: Performed By: #### C BC #### [facility] [address] [place] [address] Dr. Jessica Saravia MANUAL DIFF REQ NO Normal [facility] Comment on above: Performed By: #### C BC #### [facility] [address] [place], [place] [id number] Dr. Jessica Saravia MCH (RBC) [Entitic mass] 27.5 pg Normal 26.7-34.0 [facility] Comment on above: Performed By: #### C BC #### [facility] [address] [place] [address] Dr. Jessica Saravia MCHC (RBC) [Mass/Vol] 32.6 g/dL Normal 29.9-35.2 [facility] Comment on above: Performed By: #### C BC #### [facility] [address] [place] [address] Dr. Jessica Saravia MCV (RBC) [Entitic vol] 84.4 fL Normal 81.0-99.0 [facility] Comment on above: Performed By: #### C BC #### [facility] [address] [place] [address] Dr. Jessica Saravia MONO # 0.8 103/ul Normal 0.3-0.8 [facility] Comment on above: Performed By: #### C BC #### [facility] [address] [place] [address] Dr. Jessica Saravia Monocytes/100 WBC (Bld) 12.1 % Critically high 1.7-12. 0 [facility] Comment on above: Performed By: #### C BC #### [facility] [address] [place] [address] Dr. Jessica Saravia NEUT # 4.1 103/ul Normal 1.4-6.5 [facility] Comment on above: Performed By: #### C BC #### [facility] [address] [place] [address] Dr. Jessica Saravia Neutrophils/100 WBC (Bld) 59.6 % Normal 43.0-75.0 [facility] Comment on above: Performed By: #### C BC #### [facility] [address] [place] [address] Dr. Jessica Saravia Platelet mean volume (Bld) [Entitic vol] 11.0 fL Normal 9.5-13.5 [facility] Comment on above: Performed By: #### C BC #### [facility] [address] [address] [address] Jessica Saravia PLT 236 103/ul Normal 150-450 [facility] Comment on above: Performed By: #### C BC #### [facility] [address] [place] [address] Dr. Jessica Saravia RBC 4.11 106/ul Critically low 4.20-5.40 [facility] Comment on above: Performed By: #### C BC #### [facility] [address] [address] [address] Jessica Saravia WBC 6.9 103/ul Normal 4.0-11.0 [facility] Comment on above: Performed By: #### C BC #### [facility] [address] [place] [address] Dr. Jessica Saravia CREATININEon 11-12-2022 Creatinine [Mass/Vol] 0.85 mg/dL Normal 0.55-1.02 [facility] Comment on above: Performed By: #### L IVER #### [facility] [address] [place] [address] Dr. Jessica Saravia EGFR-AF HAITIAN >60 Normal >=60 [facility] Comment on above: Performed By: #### L IVER #### [facility] [address] [place] [address] Dr. Jessica Saravia EGFR-NON AF HAITIAN >60 Normal >=60 [facility] Comment on above: Performed By: #### L IVER #### [facility] [address] [place] [address] Dr. Jessica Saravia LIPID PROFILEon 11-12-2022 CHOL-HDL RATIO NORM SEE BELOW Normal [facility] Comment on above: Result Comment: 3.3 - 4.4 LOW RISK 4.4 - 7.1 AVERAGE RISK 7.1 - 11.0 MODERATE RISK >11.0 HIGH RISK Performed By: #### C BC #### [facility] [address] [place] [address] Dr. Jessica Saravia Cholesterol [Mass/Vol] 171 mg/dL Normal <=200 [facility] Comment on above: Performed By: #### C BC #### [facility] [address] [place], [place] [address] Dr. Jessica Saravia Cholesterol in HDL [Mass/Vol] 33 mg/dL Critically low 40-60 [facility] Comment on above: Performed By: #### C BC #### [facility] [address] [place], [place] [address] Dr. Jessica Saravia Cholesterol in LDL [Mass/Vol] 108.2 mg/dL Normal [facility] Comment on above: Performed By: #### C BC #### [facility] [address] [address] [address] Jessica Saravia Cholesterol.total/Cindy sterol in HDL [Mass ratio] 5.2 {ratio} Normal [facility] Comment on above: Performed By: #### C BC #### [facility] [address] [address] [address] Jessica Saravia HDL NORMAL > or = 60 mg/dl - LOW CARDIOVASCULAR RISK <40 mg/dl - HIGH CARDIOVASCULAR RISK Normal [facility] Comment on above: Performed By: #### C BC #### [facility] [address] [address] [address] Jessica Saravia LDL CALC NORMAL SEE BELOW Normal [facility] Comment on above: Result Comment: <100 mg/dl OPTIMAL 100 - 129 mg/dl NEAR OR ABOVE OPTIMAL 130 - 159 mg/dl BORDERLINE HIGH 160 - 189 mg/dl HIGH >190 mg/dl VERY HIGH Performed By: #### C BC #### [facility] [address] [address] [address] Jessica Saravia Triglyceride [Mass/Vol] 149 mg/dL Normal <=150 [facility] Comment on above: Performed By: #### C BC #### [facility] [address] [address] [address] Jessica Saravia VLDL CALC 29.8 mg/dL Normal [facility] Comment on above: Performed By: #### C BC #### [facility] [address] [address] [address] Jessica Saravia LIVER PROFILEon 11-12-2022 Albumin [Mass/Vol] 2.8 g/dL Critically low 3.4-5.0 [facility] e [facility] Comment on above: Performed By: #### L IVER #### [facility] [address] [address] [address] Jessica Saravia Albumin/Globulin [Mass ratio] 0.7 {ratio} Normal [facility] Comment on above: Performed By: #### L IVER #### [facility] [address] [address] [address] Jessica Saravia ALP [Catalytic activity/Vol] 159 U/L Critically high 46-116 [facility] Comment on above: Performed By: #### L IVER #### [facility] [address] [address] [address] Jessica Saravia ALT [Catalytic activity/Vol] 37 U/L Normal 14-59 [facility] Comment on above: Performed By: #### L IVER #### [facility] [address] [address] [address] Jessica Saravia AST [Catalytic activity/Vol] 24 U/L Normal 15-37 [facility] Comment on above: Performed By: #### L IVER #### [facility] [address] [address] [address] Jessica Saravia BILI, CONJUGATED 0.1 mg/dL Normal 0.0-0.2 [facility] Comment on above: Performed By: #### L IVER #### [facility] [address] [address] [address] Jessica Saravia Bilirubin [Mass/Vol] 0.4 mg/dL Normal 0.2-1.0 [facility] Comment on above: Performed By: #### L IVER #### [facility] [address] [address] [address] Jessica Saravia Globulin (S) [Mass/Vol] 4.2 g/dL Normal [facility] Comment on above: Performed By: #### L IVER #### [facility] [address] [address] [address] Jessica Saravia Protein [Mass/Vol] 7.0 g/dL Normal 6.4-8.2 [facility] Comment on above: Performed By: #### L IVER #### [facility] [address] [place], [place] [address] Dr. Jessica Saravia SED RATE KENTONERGRENon 2022 SED RATE 80 mm/hr Critically high <=30 [facility] Comment on above: Performed By: #### C BC #### [facility] [address] [address] [address] Jessica Saravia Tobacco Screening.on 023 Adult depression screening assessment No -[facility] 250 DO Work Phone: Fall risk assessment a) No falls within the last year [facility] 250 DO Work Phone: Tobacco use status [facility] b) No M [facility] 250 DO Work Phone: CT CHEST WO CONon 08-30-2022 CT CHEST WO CON EXAMINATION: CT CHEST WO CON HISTORY: Lung field abnormal COMPARISON: 05/30/2022 TECHNIQUE: Multi-planar CT images were created with IV contrast. Axial, Coronal, and Sagittal images. Dose reduction techniques were achieved by using automated exposure control and/or adjustment of mA and/or kV according to patient size and/or use of iterative reconstruction technique. FINDINGS: LUNGS: Again demonstrated are innumerable solid groundglass and cavitary nodules scattered throughout both lungs with a lower lobe predominance. Stable from multiple prior exams. No new significant nodule or mass. PLEURA: No mass, effusion, or pneumothorax. VASCULATURE: No abnormality. KAREEM: No mass or adenopathy. MEDIASTINUM: No mass or adenopathy. CARDIAC: No enlargement or pericardial effusion. Moderate coronary atherosclerosis AORTA: No aortic aneurysm. Mild atherosclerosis. CHEST WALL: Surgical clips left breast and axilla. BONES: No bone lesion or fracture. LIMITED ABDOMEN: No suspicious findings. Limited images of the upper abdomen. OTHER: Negative. IMPRESSION: Innumerable bilateral solid and groundglass and cavitary nodules, grossly stable Electronically authenticated by: ISAAC JONES Date: 2022-08-30 09:15 Normal [facility] CT CHEST WO CONon 06-24-2022 CT CHEST WO CON Begin Addendum #1 Comparison: PET/CT 02/07/2022 Decrease in size of the numerous lung nodules and greater cavitation seen on the most recent study compared to the 02/07/2022 PET study (allowing for differences in technique). As an example a previously solid nodule within the posterior right costophrenic angle measured 2.1 cm, now 1.6 cm. Soft tissue mass within left lateral costophrenic angle previously measured 6.6 cm in length, now 3.3 cm in length. No appreciable new nodules compared to the PET study. Original Report EXAMINATION: CT CHEST WO CON HISTORY: Lung field abnormal ; pulmonary nodules COMPARISON: CT chest 08/03/2021 TECHNIQUE: Axial, Coronal, and Sagittal images were created without the administration of IV contrast material. Dose reduction techniques were achieved by using automated exposure control and/or adjustment of mA and/or kV according to patient size and/or use of iterative reconstruction technique. FINDINGS: LUNGS: Numerous nodules scattered throughout the lungs, mostly peripherally located adjacent the pleura. A few are new, many previously seen solid nodules are now cavitary. A few have decreased in size while others have increased slightly in size. No acute infiltrates or significant chronic interstitial changes. PLEURA: No mass, effusion, or pneumothorax. VASCULATURE: No abnormality. KAREEM: No mass or adenopathy. MEDIASTINUM: No mass or adenopathy. CARDIAC: Trace amount pericardial fluid. AORTA: No aneurysm or dissection. CHEST WALL: Surgical changes within lateral left breast with axillary 3.0 x 2.1 cm seroma versus hypodense lymph node/mass. BONES: No bone lesion or fracture. LIMITED ABDOMEN: No suspicious findings. Limited images of the upper abdomen. OTHER: Negative. IMPRESSION: 1. Slight change in configuration of multiple nodules and cavitary lesions scattered within the lungs, predominantly within the regions of the costophrenic angles. Given their minimal change compared to 08/03/2021 is favored benign etiology. PET imaging has previously been performed, but no images or report available. 2. No acute findings within the lungs. 3. Surgical changes within left breast and likely postsurgical seroma within the axilla. Ultrasound and mammography follow-up is recommended. Normal [facility] CBC AUTO DIFFon 06-16-2022 BASO # 0.1 103/ul Normal 0.0-0.1 [facility] Comment on above: Performed By: #### C BC #### [facility] [address] [address] [address] Jessica Saravia Basophils/100 WBC (Bld) 1.0 % Normal 0.2-2.0 [facility] Comment on above: Performed By: #### C BC #### [facility] [address] [place] [address] Dr. Jessica Saravia EO # 0.4 103/ul Normal 0.0-0.7 [facility] Comment on above: Performed By: #### C BC #### [facility] [address] [place] [address] Dr. Jessica Saravia Eosinophils/100 WBC (Bld) 5.1 % Normal 0.9-7.0 [facility] Comment on above: Performed By: #### C BC #### [facility] [address] [place] [address] Dr. Jesisca Saravia Erythrocyte distribution width (RBC) [Ratio] 16.6 % Critically high 11.0-15.0 [facility] Comment on above: Performed By: #### C BC #### [facility] [address] [place] [address] Dr. Jessica Saravia Hematocrit (Bld) [Volume fraction] 34.1 % Critically low 36.0-48.0 [facility] Comment on above: Performed By: #### C BC #### [facility] [address] [place] [address] Dr. Jessica Saravia Hemoglobin (Bld) [Mass/Vol] 10.6 g/dL Critically low 12.0-16.0 [facility] Comment on above: Performed By: #### C BC #### [facility] [address] [place] [address] Dr. Jessica Saravia IG # 0.02 10e3/ul Normal 0.00-0.03 [facility] Comment on above: Performed By: #### C BC #### [facility] [address] [place] [address] Dr. Jessica Saravia IG % 0.3 % Normal 0.0-0.5 [facility] Comment on above: Performed By: #### C BC #### [facility] [address] [address] [address] Jessica Saravia LYMPH # 1.4 103/ul Normal 1.2-3.8 [facility] Comment on above: Performed By: #### C BC #### [facility] [address] [place] [address] Dr. Jessica Saravia Lymphocytes/100 WBC (Bld) 19.6 % Critically low 20.5-60.0 [facility] Comment on above: Performed By: #### C BC #### [facility] [address] [place] [address] Dr. Jessica Saravia MANUAL DIFF REQ NO Normal [facility] Comment on above: Performed By: #### C BC #### [facility] [address] [place] [address] Dr. Jessica Saravia MCH (RBC) [Entitic mass] 27.9 pg Normal 26.7-34.0 [facility] Comment on above: Performed By: #### C BC #### [facility] [address] [place] [address] Dr. Jessica Saravia MCHC (RBC) [Mass/Vol] 31.1 g/dL Normal 29.9-35.2 [facility] Comment on above: Performed By: #### C BC #### [facility] [address] [place] [address] Dr. Jessica Saravia MCV (RBC) [Entitic vol] 89.7 fL Normal 81.0-99.0 [facility] Comment on above: Performed By: #### C BC #### [facility] [address] [place] [address] Dr. Jessica Saravia MONO # 1.0 103/ul Critically high 0.3-0.8 [facility] Comment on above: Performed By: #### C BC #### [facility] [address] [place] [address] Dr. Jessica Saravia Monocytes/100 WBC (Bld) 14.2 % Critically high 1.7-12. 0 [facility] Comment on above: Performed By: #### C BC #### [facility] [address] [place] [address] Dr. Jessica Saravia NEUT # 4.3 103/ul Normal 1.4-6.5 [facility] Comment on above: Performed By: #### C BC #### [facility] [address] [address] [address] Jessica Saravia Neutrophils/100 WBC (Bld) 59.8 % Normal 43.0-75.0 [facility] Comment on above: Performed By: #### C BC #### [facility] [address] [place] [address] Dr. Jessica Saravia Platelet mean volume (Bld) [Entitic vol] 11.9 fL Normal 9.5-13.5 [facility] Comment on above: Performed By: #### C BC #### [facility] [address] [place] [address] Dr. Jessica Saravia PLT 235 103/ul Normal 150-450 [facility] Comment on above: Performed By: #### C BC #### [facility] [address] [place] [address] Dr. Jessica Saravia RBC 3.80 106/ul Critically low 4.20-5.40 [facility] Comment on above: Performed By: #### C BC #### [facility] [address] [place] [address] Dr. Jessica Saravia WBC 7.3 103/ul Normal 4.0-11.0 [facility] Comment on above: Performed By: #### C BC #### [facility] [address] [place] [address] Dr. Jessica Saravia CREATININEon 06-16-2022 Creatinine [Mass/Vol] 1.06 mg/dL Critically high 0.55-1.02 [facility] Comment on above: Performed By: #### ARGENIS RODAS #### [facility] [address] [place] [address] Dr. Jessica Saravia EGFR-AF HAITIAN >60 Normal >=60 [facility] Comment on above: Performed By: #### ARGENIS RODAS #### [facility] [address] [address] [address] Jessica Saravia EGFR-NON AF HAITIAN 52 mL/min/1.73m2 Critically low >=60 [facility] Comment on above: Performed By: #### L JONATHAN CREA #### [facility] [address] [address] [address] Jessica Saravia LIVER PROFILEon 06-16-2022 Albumin [Mass/Vol] 2.8 g/dL Critically low 3.4-5.0 [facility] Comment on above: Performed By: #### L JONATHAN CREA #### [facility] [address] [address] [address] Jessica Saravia Albumin/Globulin [Mass ratio] 0.7 {ratio} Normal [facility] Comment on above: Performed By: #### L JONATHAN CREA #### [facility] [address] [address] [address] Jessica Saravia ALP [Catalytic activity/Vol] 112 U/L Normal 46-116 [facility] Comment on above: Performed By: #### Jodie CASTILLO CREA #### [facility] [address] [address] [address] Jessica Saravia ALT [Catalytic activity/Vol] 19 U/L Normal 14-59 [facility] Comment on above: Performed By: #### Jodie CASTILLO CREA #### [facility] [address] [address] [address] Jessica Saravia AST [Catalytic activity/Vol] 16 U/L Normal 15-37 [facility] Comment on above: Performed By: #### L JONATHAN CREA #### [facility] [address] [address] [address] Jessica Saravia BILI, CONJUGATED 0.1 mg/dL Normal 0.0-0.2 [facility] Comment on above: Performed By: #### L JONATHAN CREA #### [facility] [address] [address] [address] Jessica Saravia Bilirubin [Mass/Vol] 0.3 mg/dL Normal 0.2-1.0 [facility] Comment on above: Performed By: #### L ARGENIS CASTILLO #### [facility] [address] [address] [address] Jessica Saravia Globulin (S) [Mass/Vol] 4.1 g/dL Normal T [facility] Comment on above: Performed By: #### L NATHANIEL CASTILLOA #### [facility] [address] [place] [address] Dr. Jessica Saravia Protein [Mass/Vol] 6.9 g/dL Normal 6.4-8.2 [facility] Comment on above: Performed By: #### L ARGENIS CASTILLO #### [facility] [address] [place] [address] Dr. Jessica Saravia SED RATE WESTERGRENon 2021 SED RATE 82 mm/hr Critically high <=30 [facility] Comment on above: Performed By: #### S EDR #### [facility] [address] [place] [address] Dr. Jessica Saravia US SINGLE QUAD RT UPPERon US SINGLE QUAD RT UPPER EXAMINATION: US SINGLE QUAD RT UPPER HISTORY: Right upper quadrant pain COMPARISON: No relevant comparison available. FINDINGS: The liver is normal in size, contour and echotexture with no focal hepatic mass. Hepatopedal flow in the main portal vein. Gallbladder is normal in appearance. Gallbladder wall measures 1.7 mm, normal. Negative sonographic Wood sign. No cholelithiasis. Common bile duct measures 6.5 mm, normal age. Visualized pancreas is normal The right kidney is normal in appearance measuring 10.5 x 5.4 x 5.3 cm. The cortex measures 1 cm. No hydronephrosis IMPRESSION: No abnormality Electronically authenticated by: ISAAC JONES Date: 2022-05-01 09:07 Normal [facility] CBC AUTO DIFFon 03-21-2022 BASO # 0.1 103/ul Normal 0.0-0.1 [facility] Comment on above: Performed By: #### C BC #### [facility] [address] [place] [address] Dr. Jessica Saravia Basophils/100 WBC (Bld) 1.3 % Normal 0.2-2.0 [facility] Comment on above: Performed By: #### C BC #### [facility] [address] [place] [address] Dr. Jessica Saravia EO # 0.4 103/ul Normal 0.0-0.7 [facility] Comment on above: Performed By: #### C BC #### [facility] [address] [place] [address] Dr. Jessica Saravia Eosinophils/100 WBC (Bld) 5.4 % Normal 0.9-7.0 [facility] Comment on above: Performed By: #### C BC #### [facility] [address] [place] [address] Dr. Jessica Saravia Erythrocyte distribution width (RBC) [Ratio] 17.3 % Critically high 11.0-15.0 [facility] Comment on above: Performed By: #### C BC #### [facility] [address] [place] [address] Dr. Jessica Saravia Hematocrit (Bld) [Volume fraction] 36.4 % Normal 36.0-48.0 [facility] Comment on above: Performed By: #### C BC #### [facility] [address] [place] [address] Dr. Jessica Saravia Hemoglobin (Bld) [Mass/Vol] 10.5 g/dL Critically low 12.0-16.0 [facility] Comment on above: Performed By: #### C BC #### [facility] [address] [place] [address] Dr. Jessica Saravia IG # 0.02 10e3/ul Normal 0.00-0.03 [facility] Comment on above: Performed By: #### C BC #### [facility] [address] [place] [address] Dr. Jessica Saravia IG % 0.3 % Normal 0.0-0.5 [facility] Comment on above: Performed By: #### C BC #### [facility] [address] [place] [address] Dr. Jessica Saravia LYMPH # 1.2 103/ul Normal 1.2-3.8 [facility] Comment on above: Performed By: #### C BC #### [facility] [address] [place] [address] Dr. Jessica Saravia Lymphocytes/100 WBC (Bld) 16.3 % Critically low 20.5-60.0 [facility] Comment on above: Performed By: #### C BC #### [facility] [address] [place] [address] Dr. Jessica Saravia MANUAL DIFF REQ NO Normal [facility] Comment on above: Performed By: #### C BC #### [facility] [address] [place] [address] Dr. Jessica Saravia MCH (RBC) [Entitic mass] 25.1 pg Critically low 26.7-34.0 [facility] Comment on above: Performed By: #### C BC #### [facility] [address] [place] [address] Dr. Jessica Saravia MCHC (RBC) [Mass/Vol] 28.8 g/dL Critically low 29.9-35.2 [facility] Comment on above: Result Comment: hypo chromic Performed By: #### C BC #### [facility] [address] [place] [address] Dr. Jessica Saravia MCV (RBC) [Entitic vol] 87.1 fL Normal 81.0-99.0 [facility] Comment on above: Performed By: #### C BC #### [facility] [address] [place] [address] Dr. Jessica Saravia MONO # 0.9 103/ul Critically high 0.3-0.8 [facility] Comment on above: Performed By: #### C BC #### [facility] [address] [place] [address] Dr. Jessica Saravia Monocytes/100 WBC (Bld) 12.0 % Normal 1.7-12.0 [facility] Comment on above: Performed By: #### C BC #### [facility] [address] [place] [address] Dr. Jessica Saravia NEUT # 4.7 103/ul Normal 1.4-6.5 [facility] Comment on above: Performed By: #### C BC #### [facility] [address] [address] [address] Jessica Saravia Neutrophils/100 WBC (Bld) 64.7 % Normal 43.0-75.0 [facility] Comment on above: Performed By: #### C BC #### [facility] [address] [address] [address] Jessica Saravia Platelet mean volume (Bld) [Entitic vol] 12.3 fL Normal 9.5-13.5 [facility] Comment on above: Performed By: #### C BC #### [facility] [address] [place] [address] Dr. Jessica Saravia PLT 284 103/ul Normal 150-450 [facility] Comment on above: Performed By: #### C BC #### [facility] [address] [place] [address] Dr. Jessica Saravia RBC 4.18 106/ul Critically low 4.20-5.40 [facility] Comment on above: Performed By: #### C BC #### [facility] [address] [place] [address] Dr. Jessica Saravia WBC 7.2 103/ul Normal 4.0-11.0 [facility] Comment on above: Performed By: #### C BC #### [facility] [address] [place] [address] Dr. Jessica Saravia CREATININEon 03-21-2022 Creatinine [Mass/Vol] 1.05 mg/dL Critically high 0.55-1.02 [facility] Comment on above: Performed By: #### L IVER #### [facility] [address] [place] [address] Dr. Jessica Saravia EGFR-AF HAITIAN >60 Normal >=60 [facility] Comment on above: Performed By: #### L IVER #### [facility] [address] [place] [address] Dr. Jessica Saravia EGFR-NON AF HAITIAN 53 mL/min/1.73m2 Critically low >=60 [facility] Comment on above: Performed By: #### L IVER #### [facility] [address] [address] [address] Jessica Saravia LIVER PROFILEon 03-21-2022 Albumin [Mass/Vol] 2.9 g/dL Critically low 3.4-5.0 Th e [facility] Comment on above: Performed By: #### L IVER #### [facility] [address] [address] [address] Jessica Saravia Albumin/Globulin [Mass ratio] 0.7 {ratio} Normal [facility] Comment on above: Performed By: #### L IVER #### [facility] [address] [address] [address] Jessica Saravia ALP [Catalytic activity/Vol] 86 U/L Normal 46-116 [facility] Comment on above: Performed By: #### L IVER #### [facility] [address] [place] [address] Dr. Jessica Saravia ALT [Catalytic activity/Vol] 18 U/L Normal 14-59 [facility] Comment on above: Performed By: #### L IVER #### [facility] [address] [place] [address] Dr. Jessica Saravia AST [Catalytic activity/Vol] 13 U/L Critically low 15-37 [facility] Comment on above: Performed By: #### L IVER #### [facility] [address] [address] [address] Jessica Saravia BILI, CONJUGATED 0.1 mg/dL Normal 0.0-0.2 [facility] Comment on above: Performed By: #### L IVER #### [facility] [address] [address] [address] Jessica Saravia Bilirubin [Mass/Vol] 0.4 mg/dL Normal 0.2-1.0 [facility] Comment on above: Performed By: #### L IVER #### [facility] [address] [place] [address] Dr. Jessica Saravia Globulin (S) [Mass/Vol] 4.1 g/dL Normal [facility] Comment on above: Performed By: #### L IVER #### [facility] [address] [place], [place] [address] Dr. Jessica Saravia Protein [Mass/Vol] 7.0 g/dL Normal 6.4-8.2 [facility] Comment on above: Performed By: #### L IVER #### [facility] [address] [place], [place] [address] Dr. Jessica Saravia [facility] 92 mm/hr Critically high <=30 [facility] Comment on above: Performed By: #### L IVER #### [facility] [address] [place], [place] [address] Dr. Jessica Saravia Activated partial thrombopla stin time (aPTT) in platelet poor plasma by coagulation aOrdered By: Marcin Patel on 03-01-2022 aPTT Coag (PPP) [Time] 31.7 s 25.1-36.5 [facility] - CoagulationOrde red By: Marcin Patel on 03-01-2022 PT Coag (PPP) [Time] 13.1 s 9.0-12.9 [facility] Platelet poor plasma interna tional normalized ratio (INR) by coagulation assay (relatOrdered By: Marcin Paetl on 03-01-2022 INR Coag (PPP) [Relative time] 1.2 {INR} [facility] Comment on above: INR Therapeutic Rang e A) Pre- and Peroperative OAT started two weeks before surgery. NOT HIP SURGERY: 1.5 - 2.5 HIP SURGERY: 2 - 3 B) Primary and secondary prevention of venous THROMBOSIS: 2 - 3 C) Active venous thrombosis, pulmonary embolism and prevention of recurrent venous thrombosis: 2 - 3 D) Prevention of arterial thromboembolism including patients with mechanical heart valves: 3 - 4.5 Platelets Auto (Bld) [#/Vol] Ordered By: Marcin Patel on 03-01-2022 Platelets (Bld) [#/Vol] 188 10*3/uL 150-450 [facility] Glucose Glucometer (BldC) [M ass/Vol]Ordered By: Floresita Gonzalez on 02-07-2022 Glucose [Mass/Vol] 153 mg/dL [facility] Comment on above: Random Glucose Refer ence Range is dependent on time and content of last meal. Glucose of more than 200 mg/dL in a nonstressed, ambulatory subject supports the diagnosis of Diabetes Mellitus. No Panel InformationOrdered By: Floresita Gonzalez on 02-07-2022 Bedside Glucose Comment Glu2: cleaned meter [facility] CBC AUTO DIFFon 01-26-2022 BASO # 0.1 103/ul Normal 0.0-0.1 [facility] Comment on above: Performed By: #### C BC #### [facility] [address] [address] [address] Jessica Saravia Basophils/100 WBC (Bld) 1.3 % Normal 0.2-2.0 [facility] Comment on above: Performed By: #### C BC #### [facility] [address] [address] [address] Jessica Saravia EO # 0.4 103/ul Normal 0.0-0.7 [facility] Comment on above: Performed By: #### C BC #### [facility] [address] [address] [address] Jessica Saravia Eosinophils/100 WBC (Bld) 4.6 % Normal 0.9-7.0 [facility] Comment on above: Performed By: #### C BC #### [facility] [address] [address] [address] Jessica Saravia Erythrocyte distribution width (RBC) [Ratio] 18.3 % Critically high 11.0-15.0 [facility] Comment on above: Performed By: #### C BC #### [facility] [address] [address] [address] Jessica Saravia Hematocrit (Bld) [Volume fraction] 28.7 % Critically low 36.0-48.0 [facility] Comment on above: Performed By: #### C BC #### [facility] [address] [address] [address] Jessica Saravia Hemoglobin (Bld) [Mass/Vol] 8.3 g/dL Critically low 12.0-16.0 [facility] Comment on above: Performed By: #### C BC #### [facility] [address] [address] [address] Jessica Saravia IG # 0.12 10e3/ul Critically high 0.00-0.03 [facility] Comment on above: Performed By: #### C BC #### [facility] [address] [place] [address] Dr. Jessica Saravia IG % 1.6 % Critically high 0.0-0.5 [facility] Comment on above: Performed By: #### C BC #### [facility] [address] [place] [address] Dr. Jessica Saravia LYMPH # 1.4 103/ul Normal 1.2-3.8 [facility] Comment on above: Performed By: #### C BC #### [facility] [address] [place] [address] Dr. Jessica Saravia Lymphocytes/100 WBC (Bld) 18.3 % Critically low 20.5-60.0 [facility] Comment on above: Performed By: #### C BC #### [facility] [address] [place] [address] Dr. Jessica Saravia MANUAL DIFF REQ NO Normal [facility] Comment on above: Performed By: #### C BC #### [facility] [address] [place] [address] Dr. Jessica Saravia MCH (RBC) [Entitic mass] 26.4 pg Critically low 26.7-34.0 [facility] Comment on above: Performed By: #### C BC #### [facility] [address] [place] [address] Dr. Jessica Saravia MCHC (RBC) [Mass/Vol] 28.9 g/dL Critically low 29.9-35.2 [facility] Comment on above: Performed By: #### C BC #### [facility] [address] [place] [address] Dr. Jessica Saravia MCV (RBC) [Entitic vol] 91.4 fL Normal 81.0-99.0 [facility] Comment on above: Performed By: #### C BC #### [facility] [address] [address] [address] Jessica Saravia MONO # 1.0 103/ul Critically high 0.3-0.8 [facility] Comment on above: Performed By: #### C BC #### [facility] [address] [address] [address] Jessica Saravia Monocytes/100 WBC (Bld) 12.6 % Critically high 1.7-12. 0 [facility] Comment on above: Performed By: #### C BC #### [facility] [address] [place] [address] Dr. Jessica Saravia NEUT # 4.6 103/ul Normal 1.4-6.5 [facility] Comment on above: Performed By: #### C BC #### [facility] [address] [place] [address] Dr. Jessica Saravia Neutrophils/100 WBC (Bld) 61.6 % Normal 43.0-75.0 [facility] Comment on above: Performed By: #### C BC #### [facility] [address] [place] [address] Dr. Jessica Saravia Platelet mean volume (Bld) [Entitic vol] 12.4 fL Normal 9.5-13.5 [facility] Comment on above: Performed By: #### C BC #### [facility] [address] [place] [address] Dr. Jessica Saravia PLT 247 103/ul Normal 150-450 [facility] Comment on above: Performed By: #### C BC #### [facility] [address] [place] [address] Dr. Jessica Saravia RBC 3.14 106/ul Critically low 4.20-5.40 [facility] Comment on above: Performed By: #### C BC #### [facility] [address] [place] [address] Dr. Jessica Saravia WBC 7.5 103/ul Normal 4.0-11.0 [facility] Comment on above: Performed By: #### C BC #### [facility] [address] [place] [address] Dr. Jessica Saravia CREATININEon 01-26-2022 Creatinine [Mass/Vol] 0.88 mg/dL Normal 0.52-1.04 [facility] Comment on above: Performed By: #### C BC #### [facility] [address] [place] [address] Dr. Jessica Saravia EGFR-AF HAITIAN >60 Normal >=60 [facility] Comment on above: Performed By: #### C BC #### [facility] [address] [place] [address] Dr. Jessica Saravia EGFR-NON AF HAITIAN >60 Normal >=60 [facility] Comment on above: Performed By: #### C BC #### [facility] [address] [place] [address] Dr. Jessica Saravia LIVER PROFILEon 01-26-2022 Albumin [Mass/Vol] 2.7 g/dL Critically low 3.4-5.0 Th e [facility] Comment on above: Performed By: #### C BC #### [facility] [address] [place] [address] Dr. Jessica Saravia Albumin/Globulin [Mass ratio] 0.7 {ratio} Normal [facility] Comment on above: Performed By: #### C BC #### [facility] [address] [place] [address] Dr. Jessica Saravia ALP [Catalytic activity/Vol] 82 U/L Normal 46-116 [facility] Comment on above: Performed By: #### C BC #### [facility] [address] [place] [address] Dr. Jessica Saravia ALT [Catalytic activity/Vol] 16 U/L Normal 14-59 [facility] Comment on above: Performed By: #### C BC #### [facility] [address] [place] [address] Dr. Jessica Saravia AST [Catalytic activity/Vol] 19 U/L Normal 15-37 [facility] Comment on above: Performed By: #### C BC #### [facility] [address] [place] [address] Dr. Jessica Saravia BILI, CONJUGATED 0.1 mg/dL Normal 0.0-0.3 [facility] Comment on above: Performed By: #### C BC #### [facility] [address] [address] [address] Jessica Saravia Bilirubin [Mass/Vol] 0.4 mg/dL Normal 0.2-1.3 [facility] Comment on above: Performed By: #### C BC #### [facility] [address] [address] [address] Jessica Saravia Globulin (S) [Mass/Vol] 4.0 g/dL Normal T [facility] Comment on above: Performed By: #### C BC #### [facility] [address] [place] [address] Dr. Jessica Saravia Protein [Mass/Vol] 6.7 g/dL Normal 6.1-8.2 [facility] Comment on above: Performed By: #### C BC #### [facility] [address] [address] [address] Jessica Saravia SED RATE WESTERGRENon 2021 SED RATE 97 mm/hr Critically high <=30 [facility] Comment on above: Performed By: #### C BC #### [facility] [address] [place] [address] Dr. Jessica Saravia URIC ACID SERUMon 01-26-2022 Urate [Mass/Vol] 4.4 mg/dL Normal 2.5-6.2 [facility] Comment on above: Performed By: #### C BC #### [facility] [address] [place] [address] Dr. Jessica Saravia Amphetamine Screen Ql (U)Ord ered By: Ferdinand Garcia on 12-28-2021 Amphetamines Ql (U) Negative Negative [facility] Barbiturates [Presence] in U rineOrdered By: Ferdinand Garcia on 12-28-2021 Barbiturates Ql (U) Negative Negative [facility] Benzodiazepines [Presence] i n UrineOrdered By: Ferdinand Garcia on 12-28-2021 Benzodiazepines Ql (U) Negative Negative [facility] Cannabinoids [Presence] in U rine by Screen methodOrdered By: Ferdinand Garcia on 12-28-2021 Cannabinoids Screen Ql (U) Positive Negative [facility] Comment on above: These are unconfirme d results and should not be used for legal purposes. Drug Cut-Off Concentration: AMPH 1000 ng/mL DARIANA 200 ng/mL AURY 200 ng/mL COCM 300 ng/mL OP 300 ng/mL PCP 25 ng/mL THC 20 ng/mL Glucose Glucometer (BldC) [M ass/Vol]Ordered By: Salty Gonzlaez on 12-28-2021 Glucose [Mass/Vol] 154 mg/dL [facility] Comment on above: Random Glucose Refer ence Range is dependent on time and content of last meal. Glucose of more than 200 mg/dL in a nonstressed, ambulatory subject supports the diagnosis of Diabetes Mellitus. Laboratory - Drug toxicology Ordered By: Ferdinand Garcia on 12-28-2021 Opiates Ql (U) Negative Negative [facility] Phencyclidine Screen Ql (U)O rdered By: Ferdinand Garcia on 12-28-2021 Phencyclidine Ql (U) Negative Negative [facility] Urine cocaine detectionOrder ed By: Ferdinand Garcia on 12-28-2021 Cocaine Ql (U) Negative Negative [facility] CBC AUTO DIFFon 12-27-2021 BASO # 0.1 103/ul Normal 0.0-0.1 [facility] Comment on above: Performed By: #### C BC #### [facility] [address] [address] [address] Jessica Saravia Basophils/100 WBC (Bld) 1.0 % Normal 0.2-2.0 [facility] Comment on above: Performed By: #### C BC #### [facility] [address] [address] [address] Jessica Saravia EO # 0.3 103/ul Normal 0.0-0.7 [facility] Comment on above: Performed By: #### C BC #### [facility] [address] [address] [address] Jessica Saravia Eosinophils/100 WBC (Bld) 3.2 % Normal 0.9-7.0 [facility] Comment on above: Performed By: #### C BC #### [facility] [address] [place] [address] Dr. Jessica Saravia Erythrocyte distribution width (RBC) [Ratio] 16.8 % Critically high 11.0-15.0 [facility] Comment on above: Performed By: #### C BC #### [facility] [address] [place] [address] Dr. Jessica Saravia Hematocrit (Bld) [Volume fraction] 31.4 % Critically low 36.0-48.0 [facility] Comment on above: Performed By: #### C BC #### [facility] [address] [place] [address] Dr. Jessica Saravia Hemoglobin (Bld) [Mass/Vol] 9.5 g/dL Critically low 12.0-16.0 [facility] Comment on above: Performed By: #### C BC #### [facility] [address] [place] [address] Dr. Jessica Saravia IG # 0.02 10e3/ul Normal 0.00-0.03 [facility] Comment on above: Performed By: #### C BC #### [facility] [address] [place] [address] Dr. Jessica Saravia IG % 0.2 % Normal 0.0-0.5 [facility] Comment on above: Performed By: #### C BC #### [facility] [address] [place] [address] Dr. Jessica Saravia LYMPH # 2.2 103/ul Normal 1.2-3.8 [facility] Comment on above: Performed By: #### C BC #### [facility] [address] [place] [address] Dr. Jessica Saravia Lymphocytes/100 WBC (Bld) 26.5 % Normal 20.5-60.0 [facility] Comment on above: Performed By: #### C BC #### [facility] [address] [place] [address] Dr. Jessica Saravia MANUAL DIFF REQ NO Normal [facility] Comment on above: Performed By: #### C BC #### [facility] [address] [address] [address] Jessica Saravia MCH (RBC) [Entitic mass] 26.0 pg Critically low 26.7-34.0 [facility] Comment on above: Performed By: #### C BC #### [facility] [address] [place] [address] Dr. Jessica Saravia MCHC (RBC) [Mass/Vol] 30.3 g/dL Normal 29.9-35.2 [facility] Comment on above: Performed By: #### C BC #### [facility] [address] [place] [address] Dr. Jessica Saravia MCV (RBC) [Entitic vol] 86.0 fL Normal 81.0-99.0 [facility] Comment on above: Performed By: #### C BC #### [facility] [address] [place] [address] Dr. Jessica Saravia MONO # 0.9 103/ul Critically high 0.3-0.8 [facility] Comment on above: Performed By: #### C BC #### [facility] [address] [place] [address] Dr. Jessica Saravia Monocytes/100 WBC (Bld) 10.7 % Normal 1.7-12.0 [facility] Comment on above: Performed By: #### C BC #### [facility] [address] [place] [address] Dr. Jessica Saravia NEUT # 4.8 103/ul Normal 1.4-6.5 [facility] Comment on above: Performed By: #### C BC #### [facility] [address] [place] [address] Dr. Jessica Saravia Neutrophils/100 WBC (Bld) 58.4 % Normal 43.0-75.0 [facility] Comment on above: Performed By: #### C BC #### [facility] [address] [place] [address] Dr. Jessica Saravia Platelet mean volume (Bld) [Entitic vol] 11.5 fL Normal 9.5-13.5 [facility] Comment on above: Performed By: #### C BC #### [facility] [address] [address] [address] Jessica Saravia PLT 263 103/ul Normal 150-450 [facility] Comment on above: Performed By: #### C BC #### [facility] [address] [address] [address] Jessica Saravia RBC 3.65 106/ul Critically low 4.20-5.40 [facility] Comment on above: Performed By: #### C BC #### [facility] [address] [address] [address] Jessica Saravia WBC 8.2 103/ul Normal 4.0-11.0 [facility] Comment on above: Performed By: #### C BC #### [facility] [address] [place] [address] Dr. Jessica Saravia LIPID PROFILEon 12-27-2021 CHOL-HDL RATIO NORM SEE BELOW Normal [facility] Comment on above: Result Comment: 3.3 - 4.4 LOW RISK 4.4 - 7.1 AVERAGE RISK 7.1 - 11.0 MODERATE RISK >11.0 HIGH RISK Performed By: #### C BC #### [facility] [address] [place] [address] Dr. Jessica Saravia Cholesterol [Mass/Vol] 130 mg/dL Normal <=200 [facility] Comment on above: Performed By: #### C BC #### [facility] [address] [address] [address] Jessica Saravia Cholesterol in HDL [Mass/Vol] 27 mg/dL Normal [facility] Comment on above: Performed By: #### C BC #### [facility] [address] [address] [address] Jessica Saravia Cholesterol in LDL [Mass/Vol] 68.6 mg/dL Normal [facility] Comment on above: Performed By: #### C BC #### [facility] [address] [place] [address] Dr. Jessica Saravia Cholesterol.total/Cindy sterol in HDL [Mass ratio] 4.8 {ratio} Normal [facility] Comment on above: Performed By: #### C BC #### [facility] [address] [address] [address] Jessica Saravia HDL NORMAL > or = 60 mg/dl - LOW CARDIOVASCULAR RISK <40 mg/dl - HIGH CARDIOVASCULAR RISK Normal [facility] Comment on above: Performed By: #### C BC #### [facility] [address] [address] [address] Jessica Saravia LDL CALC NORMAL SEE BELOW Normal [facility] Comment on above: Result Comment: <100 mg/dl OPTIMAL 100 - 129 mg/dl NEAR OR ABOVE OPTIMAL 130 - 159 mg/dl BORDERLINE HIGH 160 - 189 mg/dl HIGH >190 mg/dl VERY HIGH Performed By: #### C BC #### [facility] [address] [place] [address] Dr. Jessica Saravia Triglyceride [Mass/Vol] 172 mg/dL Critically high <=150 [facility] Comment on above: Performed By: #### C BC #### [facility] [address] [place] [address] Dr. Jessica Saravia VLDL CALC 34.4 mg/dL Normal [facility] Comment on above: Performed By: #### C BC #### [facility] [address] [place] [address] Dr. Jessica Saravia LIVER PROFILEon 12-27-2021 Albumin [Mass/Vol] 2.5 g/dL Critically low 3.5-5.0 Th [facility] Comment on above: Performed By: #### L IVER #### [facility] [address] [place] [address] Dr. Jessica Saravia Albumin/Globulin [Mass ratio] 0.6 {ratio} Normal [facility] Comment on above: Performed By: #### L IVER #### [facility] [address] [place] [address] Dr. Jessica Saravia ALP [Catalytic activity/Vol] 80 U/L Normal 38-126 [facility] Comment on above: Performed By: #### L IVER #### [facility] [address] [place] [address] Dr. Jessica Saravia ALT [Catalytic activity/Vol] 16 U/L Normal 9-52 [facility] Comment on above: Performed By: #### L IVER #### [facility] [address] [place] [address] Dr. Jessica Saravia AST [Catalytic activity/Vol] 9 U/L Critically low 14-36 [facility] Comment on above: Performed By: #### L IVER #### [facility] [address] [place] [address] Dr. Jessica Saravia BILI, CONJUGATED 0.1 mg/dL Normal 0.0-0.3 [facility] Comment on above: Performed By: #### L IVER #### [facility] [address] [place] [address] Dr. Jessica Saravia Bilirubin [Mass/Vol] 0.3 mg/dL Normal 0.2-1.3 [facility] Comment on above: Performed By: #### L IVER #### [facility] [address] [place] [address] Dr. Jessica Saravia Globulin (S) [Mass/Vol] 4.1 g/dL Normal [facility] Comment on above: Performed By: #### L IVER #### [facility] [address] [place] [address] Dr. Jessica Saravia Protein [Mass/Vol] 6.6 g/dL Normal 6.1-8.2 [facility] Comment on above: Performed By: #### L IVER #### [facility] [address] [place] [address] Dr. Jessica Saravia PROF CHEM 8 (BAS METB)on Anion gap [Moles/Vol] 11.6 mmol/L Normal [facility] Comment on above: Performed By: #### C BC #### [facility] [address] [place] [address] Dr. Jessica Saravia Calcium [Mass/Vol] 8.2 mg/dL Critically low 8.4-10.2 [facility] Comment on above: Performed By: #### C BC #### [facility] [address] [address] [address] Jessica Saravia Chloride [Moles/Vol] 103 mmol/L Normal 98-107 [facility] Comment on above: Performed By: #### C BC #### [facility] [address] [address] [address] Jessica Saravia CO2 [Moles/Vol] 30.0 mmol/L Normal 22.0-30.0 [facility] Comment on above: Performed By: #### C BC #### [facility] [address] [place] [address] Dr. Jessica Saravia Creatinine [Mass/Vol] 1.05 mg/dL Critically high 0.52-1.04 [facility] Comment on above: Performed By: #### C BC #### [facility] [address] [place] [address] Dr. Jessica Saravia EGFR-AF HAITIAN >60 Normal >=60 [facility] Comment on above: Performed By: #### C BC #### [facility] [address] [place] [address] Dr. Jessica Saravia EGFR-NON AF HAITIAN 53 mL/min/1.73m2 Critically low >=60 [facility] Comment on above: Performed By: #### C BC #### [facility] [address] [place] [address] Dr. Jessica Saravia Glucose [Mass/Vol] 214 mg/dL Critically high 74-106 [facility] Comment on above: Performed By: #### C BC #### [facility] [address] [place] [address] Dr. Jessica Saravia Potassium [Moles/Vol] 3.6 mmol/L Normal 3.4-5.0 [facility] Comment on above: Performed By: #### C BC #### [facility] [address] [place] [address] Dr. Jessica Saravia Sodium [Moles/Vol] 141 mmol/L Normal 137-145 [facility] Comment on above: Performed By: #### C BC #### [facility] [address] [place] [address] Dr. Jessica Saravia Urea nitrogen [Mass/Vol] 9.0 mg/dL Normal 7.0-17.0 [facility] Comment on above: Performed By: #### C BC #### [facility] [address] [place] [address] Dr. Jessica Saravia Urea nitrogen/Creatinine [Mass ratio] 8.6 mg/mg Normal [facility] Comment on above: Performed By: #### C BC #### [facility] [address] [address] [address] Jessica Saravia SED RATE WESTERGRENon 2021 SED RATE 80 mm/hr Critically high <=30 [facility] Comment on above: Performed By: #### S EDR #### [facility] [address] [place] [address] Dr. Jessica Saravia COVID-19 Positive/NegativeOr dered By: Salty Gonzalez on 12-24-2021 SARS-CoV-2 (COVID-19) N gene AMA+probe Ql (Resp) Negative Negative [facility] Comment on above: Testing for SARS-CoV -2 by RT-PCRThis test was developed and its performance characteristics determined by [employer] ([employer]) and validated at the [facility]. This test has not been FDA cleared or approved. This test has been authorized by FDA under an Emergency Use Authorization (EUA). This test has been validated in accordance with the FDA's Guidance Document (Policy for Diagnostics Testing in Laboratories Certified to Perform High Complexity Testing under CLIA prior to Emergency Use Authorization for Coronavirus Disease-2019 during the Public Health Emergency) issued on January 16, 2020. This test is only authorized for the duration of time the declaration that circumstances exist justifying the authorization of the emergency use of in vitro diagnostic tests for detection of SARS-CoV-2 virus and/or diagnosis of COVID-19 infection under section 564(b)(1) of the Act, 21 U.S.C. 360bbb-3(b)(1), unless the authorization is terminated or revoked sooner. Basophils Auto (Bld) [#/Vol] Ordered By: Salty Gonzalez on 12-14-2021 Basophils (Bld) [#/Vol] 0.1 10*3/uL 0.0-0.2 [facility] Basophils/100 WBC Auto (Bld) Ordered By: Salty Gonzalez on 12-14-2021 Basophils/100 WBC (Bld) 1.5 % [facility] Blood hemoglobin measurement (mass/volume)Ordered By: Salty Gonzalez on 12-14-2021 Hemoglobin (Bld) [Mass/Vol] 10.7 g/dL 11.8-15.4 [facility] Blood leukocytes automated c ount (number/volume)Ordered By: Salty Gonzalez on 12-14-2021 WBC (Bld) [#/Vol] 7.2 10*3/uL 4.5-11.0 [facility] Creatinine and Glomerular fi ltration rate.predicted panel (S/P/Bld)Ordered By: Salty Gonzalez on 12-14-2021 Creatinine [Mass/Vol] 0.98 mg/dL 0.44-1.03 [facility] Eosinophils Auto (Bld) [#/Vo l]Ordered By: Salty Gonzalez on 12-14-2021 Eosinophils (Bld) [#/Vol] 0.4 10*3/uL 0.0-0.45 [facility] Eosinophils/100 WBC Auto (Bl d)Ordered By: Salty Gonzalez on 12-14-2021 Eosinophils/100 WBC (Bld) 5.5 % [facility] Erythrocyte distribution wid th Auto (RBC) [Ratio]Ordered By: Salty Gonzalez on 12-14-2021 Erythrocyte distribution width (RBC) [Ratio] 17.4 % 11.9-15.3 [facility] Estimated glomerular filtrat ion rate (GFR) non- AmericanOrdered By: Salty Gonzalez on 12-14-2021 GFR/1.73 sq M.predicted among non-blacks MDRD (S/P/Bld) [Vol rate/Area] 57 mL/Min [facility] Hematocrit Auto (Bld) [Volum e fraction]Ordered By: Salty Gonzalez on 12-14-2021 Hematocrit (Bld) [Volume fraction] 33.6 % 34.0-46.4 [facility] Laboratory - Hematology and Cell countsOrdered By: Salty Gonzalez on 12-14-2021 Nucleated RBC/100 WBC (Bld) [Ratio] 0.1 % 0-0.5 [facility] Lymphocytes Auto (Bld) [#/Vo l]Ordered By: Salty Gonzalez on 12-14-2021 Lymphocytes (Bld) [#/Vol] 1.4 10*3/uL 1.00-4.8 [facility] Lymphocytes/100 WBC Auto (Bl d)Ordered By: Salty Gonzalez on 12-14-2021 Lymphocytes/100 WBC (Bld) 19.0 % [facility] MCH Auto (RBC) [Entitic mass ]Ordered By: Salty Gonzalez on 12-14-2021 MCH (RBC) [Entitic mass] 26.7 pg 24.7-34.3 [facility] MCHC Auto (RBC) [Mass/Vol]Or dered By: Salty Gonzalez on 12-14-2021 MCHC (RBC) [Mass/Vol] 31.9 g/dL 32.0-35.0 [facility] MCV Auto (RBC) [Entitic vol] Ordered By: Salty Gonzalez on 12-14-2021 MCV (RBC) [Entitic vol] 83.5 fL 80-100 [facility] Monocytes Auto (Bld) [#/Vol] Ordered By: Salty Gonzalez on 12-14-2021 Monocytes (Bld) [#/Vol] 0.8 10*3/uL 0.0-0.8 [facility] Monocytes/100 WBC Auto (Bld) Ordered By: Salty Gonzalez on 12-14-2021 Monocytes/100 WBC (Bld) 11.0 % [facility] Neutrophils Auto (Bld) [#/Vo l]Ordered By: Salty Gonzalez on 12-14-2021 Neutrophils (Bld) [#/Vol] 4.5 10*3/uL 1.8-7.7 [facility] Neutrophils/100 WBC Auto (Bl d)Ordered By: Salty Gonzalez on 12-14-2021 Neutrophils/100 WBC (Bld) 63.0 % [facility] No Panel InformationOrdered By: Salty Gonzalez on 12-14-2021 Estimated GFR () > 60 mL/Min [facility] Comment on above: GFR estimated refere nce range: According to KDOQI guidelines, <60 ml/min/1.73m2 is sufficient to diagnose a patient with chronic kidney disease. Pharmacy Creatinine Clearance (Chem N/A [facility] Platelet mean volume Auto (B ld) [Entitic vol]Ordered By: Salty Gonzalez on 12-14-2021 Platelet mean volume (Bld) [Entitic vol] 10.1 fL 6.3-10.7 [facility] Platelets Auto (Bld) [#/Vol] Ordered By: Salty Gonzalez on 12-14-2021 Platelets (Bld) [#/Vol] 245 10*3/uL 150-450 [facility] RBC Auto (Bld) [#/Vol]Ordere d By: Salty Gonzalez on 12-14-2021 RBC (Bld) [#/Vol] 4.02 10*6/uL 3.60-5.00 [facility] Serum or plasma calcium kell urement (mass/volume)Ordered By: Salty Gonzalez on 12-14-2021 Calcium [Mass/Vol] 10.0 mg/dL 8.2-10.2 [facility] Serum or plasma chloride jennifer surement (moles/volume)Ordered By: Salty Gonzalez on 12-14-2021 Chloride [Moles/Vol] 102 mmol/L 95-114 [facility] Serum or plasma glucose kell urement (mass/volume)Ordered By: Salty Gonzalez on 12-14-2021 Glucose [Mass/Vol] 226 mg/dL 70-100 [facility] Comment on above: ADA recommended refe rence rangeRandom Glucose Reference Range is dependent on time and content of last meal. Glucose of more than 200 mg/dL in a nonstressed, ambulatory subject supports the diagnosis of Diabetes Mellitus. Serum or plasma potassium me asurement (moles/volume)Ordered By: Salty Gonzalez on 12-14-2021 Potassium [Moles/Vol] 3.9 mmol/L 3.5-5.1 [facility] Serum or plasma sodium measu rement (moles/volume)Ordered By: Salty Gonzalez on 12-14-2021 Sodium [Moles/Vol] 136 mmol/L 136-146 [facility] Serum or plasma total carbon dioxide measurement (moles/volume)Ordered By: Salty Gonzalez on 12-14-2021 CO2 [Moles/Vol] 24.5 mmol/L 22.0-30.0 [facility] Serum or plasma urea nitroge n measurement (mass/volume)Ordered By: Salty Gonzalez on 12-14-2021 Urea nitrogen [Mass/Vol] 9 mg/dL 07-08 [facility] CBC AUTO DIFFon 12-08-2021 BASO # 0.1 103/ul Normal 0.0-0.1 [facility] Comment on above: Performed By: #### L IVER #### [facility] [address] [place] [address] Dr. Jessica Saravia Basophils/100 WBC (Bld) 1.1 % Normal 0.2-2.0 [facility] Comment on above: Performed By: #### L IVER #### [facility] [address] [address] [address] Jessica Saravia EO # 0.4 103/ul Normal 0.0-0.7 [facility] Comment on above: Performed By: #### L IVER #### [facility] [address] [address] [address] Jessica Saravia Eosinophils/100 WBC (Bld) 4.1 % Normal 0.9-7.0 [facility] Comment on above: Performed By: #### L IVER #### [facility] [address] [address] [address] Jessica Saravia Erythrocyte distribution width (RBC) [Ratio] 16.8 % Critically high 11.0-15.0 [facility] Comment on above: Performed By: #### L IVER #### [facility] [address] [place] [address] Dr. Jessica Saravia Hematocrit (Bld) [Volume fraction] 37.1 % Normal 36.0-48.0 [facility] Comment on above: Performed By: #### L IVER #### [facility] [address] [place] [address] Dr. Jessica Saravia Hemoglobin (Bld) [Mass/Vol] 11.0 g/dL Critically low 12.0-16.0 [facility] Comment on above: Performed By: #### L IVER #### [facility] [address] [place] [address] Dr. Jessica Saravia IG # 0.02 10e3/ul Normal 0.00-0.03 [facility] Comment on above: Performed By: #### L IVER #### [facility] [address] [place] [address] Dr. Jessica Saravia IG % 0.2 % Normal 0.0-0.5 [facility] Comment on above: Performed By: #### L IVER #### [facility] [address] [place] [address] Dr. Jessica Saravia LYMPH # 1.5 103/ul Normal 1.2-3.8 [facility] Comment on above: Performed By: #### L IVER #### [facility] [address] [place] [address] Dr. Jessica Saravia Lymphocytes/100 WBC (Bld) 16.2 % Critically low 20.5-60.0 [facility] Comment on above: Performed By: #### L IVER #### [facility] [address] [place] [address] Dr. Jessica Saravia MANUAL DIFF REQ NO Normal [facility] Comment on above: Performed By: #### L IVER #### [facility] [address] [place] [address] Dr. Jessica Saravia MCH (RBC) [Entitic mass] 26.4 pg Critically low 26.7-34.0 [facility] Comment on above: Performed By: #### L IVER #### [facility] [address] [place] [address] Dr. Jessica Saravia MCHC (RBC) [Mass/Vol] 29.6 g/dL Critically low 29.9-35.2 [facility] Comment on above: Performed By: #### L IVER #### [facility] [address] [place] [address] Dr. Jessica Saravia MCV (RBC) [Entitic vol] 89.0 fL Normal 81.0-99.0 [facility] Comment on above: Performed By: #### L IVER #### [facility] [address] [place] [address] Dr. Jessica Saravia MONO # 0.8 103/ul Normal 0.3-0.8 [facility] Comment on above: Performed By: #### L IVER #### [facility] [address] [place] [address] Dr. Jessica Saravia Monocytes/100 WBC (Bld) 8.6 % Normal 1.7-12.0 [facility] Comment on above: Performed By: #### L IVER #### [facility] [address] [place] [address] Dr. Jessica Saravia NEUT # 6.3 103/ul Normal 1.4-6.5 [facility] Comment on above: Performed By: #### L IVER #### [facility] [address] [place] [address] Dr. Jessica Saravia Neutrophils/100 WBC (Bld) 69.8 % Normal 43.0-75.0 [facility] Comment on above: Performed By: #### L IVER #### [facility] [address] [place] [address] Dr. Jessica Saravia Platelet mean volume (Bld) [Entitic vol] 11.9 fL Normal 9.5-13.5 [facility] Comment on above: Performed By: #### L IVER #### [facility] [address] [place], [place] [id number] Dr. Jessica Saravia PLT 253 103/ul Normal 150-450 [facility] Comment on above: Performed By: #### L IVER #### [facility] [address] [place] [address] Dr. Jessica Saravia RBC 4.17 106/ul Critically low 4.20-5.40 [facility] Comment on above: Performed By: #### L IVER #### [facility] [address] [place] [address] Dr. Jessica Saravia WBC 9.0 103/ul Normal 4.0-11.0 [facility] Comment on above: Performed By: #### L IVER #### [facility] [address] [place] [address] Dr. Jessica Saravia CREATININEon 12-08-2021 Creatinine [Mass/Vol] 1.23 mg/dL Critically high 0.52-1.04 [facility] Comment on above: Performed By: #### C SARAH, LIVER #### [facility] [address] [place] [address] Dr. Jessica Saravia EGFR-AF HAITIAN 53 mL/min/1.73m2 Critically low >=60 [facility] Comment on above: Performed By: #### C SARAH, LIVER #### [facility] [address] [place] [address] Dr. Jessica Saravia EGFR-NON AF HAITIAN 44 mL/min/1.73m2 Critically low >=60 [facility] Comment on above: Performed By: #### C SARAH, LIVER #### [facility] [address] [place] [address] Dr. Jessica Saravia LIVER PROFILEon 12-08-2021 Albumin [Mass/Vol] 2.8 g/dL Critically low 3.5-5.0 [facility] Comment on above: Performed By: #### C SARAH, LIVER #### [facility] [address] [place] [address] Dr. Jessica Saravia Albumin/Globulin [Mass ratio] 0.7 {ratio} Normal [facility] Comment on above: Performed By: #### C SARAH, LIVER #### [facility] [address] [address] [address] Jessica Saravia ALP [Catalytic activity/Vol] 92 U/L Normal 38-126 [facility] Comment on above: Performed By: #### C SARAH, LIVER #### [facility] [address] [address] [address] Jessica Saravia ALT [Catalytic activity/Vol] 15 U/L Normal 9-52 [facility] Comment on above: Performed By: #### C SARAH, LIVER #### [facility] [address] [address] [address] Jessica Saravia AST [Catalytic activity/Vol] 15 U/L Normal 14-36 [facility] Comment on above: Performed By: #### C SARAH, LIVER #### [facility] [address] [address] [address] Jessica Saravia BILI, CONJUGATED 0.1 mg/dL Normal 0.0-0.3 [facility] Comment on above: Performed By: #### C SARAH, LIVER #### [facility] [address] [address] [address] Jessica Saravia Bilirubin [Mass/Vol] 0.4 mg/dL Normal 0.2-1.3 [facility] Comment on above: Performed By: #### C SARAH, LIVER #### [facility] [address] [address] [address] Jessica Saravia Globulin (S) [Mass/Vol] 4.3 g/dL Normal [facility] Comment on above: Performed By: #### C SARAH, LIVER #### [facility] [address] [address] [address] Jessica Saravia Protein [Mass/Vol] 7.1 g/dL Normal 6.1-8.2 [facility] Comment on above: Performed By: #### C SARAH, LIVER #### [facility] [address] [address] [address] Jessica Saravia SED RATE [facility] 2021 SED RATE 118 mm/hr Critically high <=30 [facility] Comment on above: Performed By: #### L JONATHAN #### [facility] [address] [address] [address] Jessica Saravia Office Visit (Cardiology)on 10-28-2021 Follow-up visit Diagnoses/Problems Assessed Status post insertion of drug eluting coronary artery stent (V45.82) (Z95.5) History of ST elevation myocardial infarction (STEMI) (412) (I25.2) Ischemic cardiomyopathy (414.8) (I25.5) HTN (hypertension) (401.9) (I10) Mixed hyperlipidemia (272.2) (E78.2) Diabetes mellitus (250.00) (E11.9) Coronary artery disease involving inaja coronary artery of inaja heart without angina pectoris (414.01) (I25.10) Rheumatoid arthritis (714.0) (M06.9) Never a smoker Morbid obesity with BMI of 40.0-44.9, adult (278.01,V85.41) (E66.01,Z68.41) Orders Coronary artery disease involving inaja coronary artery of inaja heart without angina pectoris, HTN (hypertension), Ischemic cardiomyopathy, Mixed hyperlipidemia ALT - Alanine Aminotransferase, Serum; Status:Active - Retrospective Authorization; Requested for:27Dec2021; AST; Status:Active - Retrospective Authorization; Requested for:27Dec2021; Basic Metabolic Panel; Status:Active - Retrospective Authorization; Requested for:27Dec2021; Lipid Panel; Status:Active - Retrospective Authorization; Requested for:27Dec2021; Coronary artery disease involving inaja coronary artery of inaja heart without angina pectoris, Mixed hyperlipidemia Stop: Atorvastatin Calcium 80 MG Oral Tablet Start: Atorvastatin Calcium 40 MG Oral Tablet; TAKE 1 TABLET AT BEDTIME History of ST elevation myocardial infarction (STEMI), Ischemic cardiomyopathy, Status post insertion of drug eluting coronary artery stent Renew: Entresto 49-51 MG Oral Tablet; TAKE 1 TABLET BY MOUTH TWICE A DAY HTN (hypertension), Ischemic cardiomyopathy Start: Spironolactone 25 MG Oral Tablet; TAKE 1 TABLET DAILY Morbid obesity with BMI of 40.0-44.9, adult Healthy Weight Tips; Status:Complete - Retrospective Authorization; Done: 28Oct2021 SocHx: Never a smoker Tobacco Use Screening; Status:Complete; Done: 28Oct2021 Patient Instructions By signing my name below, I, Shirin Vizcaino LPN, Scribe, attest that this documentation has been prepared under the direction and in the presence of Dr. Luke Herrmann DO. All medical record entries made by the Daily were at my direction and personally dictated by me. I have reviewed the chart and agree that the record accurately reflects my personal performance of the history, physical exam, discussion and plan. Please bring all medicines, vitamins, and herbal supplements with you when you come to the office. Prescriptions will not be filled unless you are compliant with your follow up appointments or have a follow up appointment scheduled as per instruction of your physician. Refills should be requested at the time of your visit. Follow up in 6 months Chief Complaint CHUCKY DUNLAP is being seen for a 2 week follow-up of. Patient is a 65-year-old female who returns for follow-up and overall is doing well she has some exertional shortness of breath. She is performing cardiac rehab without any significant problems. She remains hypertensive today and repeat blood pressure check she is 152/80. She sustained a very large inferior HI in August 2021 with extensive AngioJet thrombectomy and 2 large 4 mm drug-eluting stents placed through the proximal and distal RCA with prolonged no reflow phenomenon and initially ejection fraction of 30 to 35% that is now normalized by most recent echocardiogram. She has underlying rheumatoid arthritis, hypertension, obesity, hyperlipidemia, accelerated hypertension is noted today. Ischemic cardiomyopathy that has essentially anatomically normalized aggressive afterload reduction therapy (mid dose Entresto). Recommendations: We will increase her spironolactone to full 25 mg pill daily, recheck blood pressure, obtain labs and follow-up in 6 months Surgical History Problems History of Ankle surgery Denied: History of Complete colonoscopy Current Meds Medication NameInstruction Aspirin EC 81 MG Oral Tablet Delayed ReleaseTAKE 1 TABLET DAILY. Atorvastatin Calcium 80 MG Oral TabletTAKE 1 TABLET AT BEDTIME. Carvedilol 12.5 MG Oral TabletTAKE 1 TABLET TWICE DAILY. Clopidogrel Bisulfate 75 MG Oral TabletTAKE 1 TABLET DAILY. ( first dose is 600 mg a total of 8 tablets) Entresto 49-51 MG Oral TabletTAKE 1 TABLET BY MOUTH TWICE A DAY Levothyroxine Sodium 112 MCG Oral TabletTAKE 1 TABLET DAILY. Nitroglycerin 0.4 MG Sublingual Tablet SublingualPLACE 1 TABLET UNDER THE TONGUE EVERY 5 MINUTES UP TO 3 DOSES NEEDED FOR CHEST PAIN. NovoLOG FlexPen 100 UNIT/ML SOLNINJECT SUBCUTANEOUSLY DIRECTED. oxyCODONE-Acetamino phen 5-325 MG Oral TabletTake 1 tablet 3 times daily as needed PrednisoLONE 5 MG TABSTake 1 tablet daily Spironolactone 25 MG Oral TabletTAKE 0.5 TABLET Daily Tresiba 100 UNIT/ML Subcutaneous SolutionINJECT SUBCUTANEOUSLY DIRECTED Allergies Medication No Known Drug Allergies Recorded By: Shania Dsouza; 08/30/2021 1:33:34 PM Social History Problems Caffeine use (V49.89) (Z78.9) 1/2 cup (more content not included)... Normal [facility] Scre[facility].on 022 Tobacco use status [facility] b) No M P-[place] [address] DO Work Phone: Echocardiogramon 10-04-[address], [place] [address] TRANSTHORACIC ECHOCARDIOGRAM REPORT Patient Name: CHUCKY Kilpatrick Physician: [id number] Kateryna DUNLAP MD Study Date: 10/04/2021 Referring [id number] LUKE HERRMANN Physician: MRN/PID: [id number] PCP: Reese Nixon MD Accession/Order#: [id number] Department [facility] Location: Date of : 1955 Fellow: Gender: F Nurse: Admit Date: Training Officer: Shana Phelps [facility], T Height: 162.56 cm CC Report to: Weight: 126.10 kg Study Type: Echocardiogram BSA: 2.25 m2 Blood Pressure: 144 /94 mmHg Diagnosis/ICD: I25.5-Ischemic cardiomyopathy Indication: CAD, HI and PTCA-08/2021, Diabetes, Dyspnea, HTN, Rheumatoid Arthritis, Morbid Obesity Procedure/CPT: Echo Complete w Full [id number] Study Detail: The following Echo studies were performed: 2D, M-Mode, Doppler and color flow. PHYSICIAN INTERPRETATION: Left Ventricle: The left ventricular systolic function is normal, with an estimated ejection fraction of 55%. The left ventricular cavity size is normal. Spectral Doppler shows a normal pattern of left ventricular diastolic filling. Mild inferior wall hypokinesis. Left Atrium: The left atrium is normal in size. Right Ventricle: The right ventricle is normal in size. There is normal right ventricular global systolic function. Right Atrium: The right atrium is normal in size. Aortic Valve: The aortic valve appears structurally normal. There is no evidence of aortic valve regurgitation. Mitral Valve: The mitral valve is normal in structure. There is no evidence of mitral valve regurgitation. Tricuspid Valve: The tricuspid valve is structurally normal. No evidence of tricuspid regurgitation. Pulmonic Valve: The pulmonic valve is structurally normal. There is no indication of pulmonic valve regurgitation. Pericardium: There is a small to moderate pericardial effusion. Aorta: The aortic root is normal. CONCLUSIONS: 1. The left ventricular systolic function is normal with a 55% estimated ejection fraction. 2. Mild inferior wall hypokinesis. 3. There is a small to moderate pericardial effusion. 4. When compared to prior study the pericardial effusion is new and LV systolic function has improved. QUANTITATIVE DATA SUMMARY: 2D MEASUREMENTS: Normal Ranges: Ao Root d: 2.60 cm (2.0-3.7cm) LAs: 4.20 cm (2.7-4.0cm) RVIDd: 2.70 cm (0.9-3.6cm) IVSd: 1.10 cm (0.6-1.1cm) LVPWd: 1.00 cm (0.6-1.1cm) LVIDd: 5.40 cm (3.9-5.9cm) LVIDs: 3.90 cm LV Mass Index: 98.0 g/m2 LV % FS 27.8 % LV SYSTOLIC FUNCTION BY 2D PLANIMETRY (MOD): Normal Ranges: EF-A4C View: 56.2 % (>55%) AORTIC VALVE: Normal Ranges: LVOT Diameter: 2.10 cm (1.8-2.4cm) [id number] Kateryna De Jesus MD Electronically signed on 10/04/2021 at 4:39:26 PM Final Normal [facility] Office Visit (Cardiology)on 10-04-2021 Follow-up visit Diagnoses/Problems Assessed Ischemic cardiomyopathy (414.8) (I25.5) Coronary artery disease involving inaja coronary artery of inaja heart without angina pectoris (414.01) (I25.10) HTN (hypertension) (401.9) (I10) Diabetes mellitus (250.00) (E11.9) Mixed hyperlipidemia (272.2) (E78.2) STEMI (ST elevation myocardial infarction) (410.90) (I21.3) Morbid obesity with BMI of 40.0-44.9, adult (278.01,V85.41) (E66.01,Z68.41) Orders Coronary artery disease involving inaja coronary artery of inaja heart without angina pectoris, Mixed hyperlipidemia ALT - Alanine Aminotransferase, Serum; Status:Active; Requested for:[id number]; AST; Status:Active; Requested for:[id number]; Lipid Panel; Status:Active; Requested for:[id number]; Ischemic cardiomyopathy Basic Metabolic Panel; Status:Active; Requested for:[id number]; Patient Instructions PLAN: Through informed decision making process incorporating patients unique circumstances, the following treatment plan will be initiated: 1. Prescription drug management of cardiovascular medication for efficacy, adherence to treatment, side effect assessment and polypharmacy. Current treatment clinically warranted and to continue without modifications. 2. I will check BP after echo this afternoon (144/86) - Her BP before increase to Entesto 49/51 BID was 126/84. She is very anxious re: PET scan results. She will come back next week for BP check. Need labs before I could increase Entresto HR 70s on coreg 6.25 3. Keep echo today 4. Return for follow-up; in the interim, contact the office if new symptoms arise. Dr. Herrmann as prior 4. Chem 6 AND lipid profile Discussed the dynamic nature of coronary artery disease and the importance of seeking medical attention if new symptoms arise. Encourage healthy lifestyle choices including: - Heart Health Diet: eat plenty of nutrient-rich foods (fruits and veggies, whole grains, lean poultry and fish). Avoid saturated fats, trans fats and excess sodium and sugar. - Get at least 150 minutes per week of moderate-intensity aerobic activity. Brisk walking (at least 2.5 miles per hour), water aerobics, gardening, biking slower than 10 miles per hours. Any amount of movement is better than none. The simplest way to get moving and improve your health is to start walking. It's free, easy and can be done just about anywhere, even in place. Even if you have been sedentary for years, today is the day you can begin to make healthy changes in your life. Please bring all medicines, vitamins, and herbal supplements with you when you come to the office. Prescriptions will not be filled unless you are compliant with your follow up appointments or have a follow up appointment scheduled as per instruction of your physician. Refills should be requested at the time of your visit. Chief Complaint Doing fine with increased medications CHUCKY DUNLAP is being seen for a 2 week follow-up of cardiomyopathy. Last evaluated by myself 2 weeks ago and entresto increased to mid dosing. Compliant with those changes, no side effects. Saw Dr Patel due to lung nodules and PET scan results pending. She is very anxious about results. BP is elevated in office today; which is unusual for her. On my recheck 144/80. Will recheck after echo is completed. Needs chem6 completed. Has wrist cuff at home and SBP < 130. History of Present Illness The patient presents with ischemic heart failure. The patient's last LV ejection fraction was 35%. The patient is NYHA functional Class II. This is stage C heart failure. Symptoms: denies lower extremity edema, stable dyspnea on exertion, stable fatigue, stable exercise intolerance, denies orthopnea and denies paroxysmal nocturnal dyspnea. Associated symptoms include recent 4 pounds weight loss. Home Monitoring: The patient checks her weight sporadically. Medications: the patient is adherent with her medication regimen. She denies medication side effects. Due For: electrolytes. Surgical History Problems History of Ankle surgery Denied: History of Complete colonoscopy Current Meds Medication NameInstruction Aspirin EC 81 MG Oral Tablet Delayed ReleaseTAKE 1 TABLET DAILY. Atorvastatin Calcium 80 MG Oral TabletTAKE 1 TABLET AT BEDTIME. Carvedilol 6.25 MG Oral TabletTake 1 tablet twice daily Clopidogrel Bisulfate 75 MG Oral TabletTAKE 1 TABLET DAILY. ( first dose is 600 mg a total of 8 tablets) Entresto 49-51 MG Oral TabletTAKE 1 TABLET BY MOUTH TWICE A DAY Levothyroxine Sodium 112 MCG Oral TabletTAKE 1 TABLET DAILY. Nitroglycerin 0.4 MG Sublingual Tablet SublingualPLACE 1 TABLET UNDER THE TONGUE EVERY 5 MINUTES UP TO 3 DOSES NEEDED FOR CHEST PAIN. NovoLOG FlexPen 100 UNIT/ML SOLNINJECT SUBCUTANEOUSLY DIRECTED. oxyCODONE-Acetamino phen 5-325 MG Oral TabletTake 1 tablet 3 times daily as needed Tresiba 100 UNIT/ML Subcutaneous SolutionINJECT SUBCUTANEOUSLY DIRECTED Patient did not bring medication list o (more content not included)... Normal [facility] Tobacco Screening.on Fall risk assessment a) No falls within the last year [facility] [employer] [address] [place] Work Phone: Tobacco use status [facility] b) No M [facility] [employer] [address] [place] Work Phone: Office Visit (Cardiology)on 09-20-2021 Follow-up visit Diagnoses/Problems Assessed Ischemic cardiomyopathy (414.8) (I25.5) ICM HFrEF LVEF 35% Aug 2021 cath: FC II Stage C GDMT: coreg AND entresto added Aug 31, 2021 No aldactone currently Coronary artery disease involving inaja coronary artery of inaja heart without angina pectoris (414.01) (I25.10) Aug 23, 2021 aspiration thrombectomy PDA AngioJet thrombectomy p-mRCA PCI/Skypoint 02/10 dRCA PCI/Eliceo p/mRCA No left system disease STEMI (ST elevation myocardial infarction) (410.90) (I21.3) Aug 23, 2021 [facility] Emeregent management Dr. Herrmann HTN (hypertension) (401.9) (I10) optimal Mixed hyperlipidemia (272.2) (E78.2) Atorvastatin was new at discharge Will need labs beginning of October Diabetes mellitus (250.00) (E11.9) Good control On ARNI/statin Morbid obesity with BMI of 40.0-44.9, adult (278.01,V85.41) (E66.01,Z68.41) Reviewed the merits of healthy lifestyle choices on overall cardiovascular health. Orders Coronary artery disease involving inaja coronary artery of inaja heart without angina pectoris, Mixed hyperlipidemia Start: Atorvastatin Calcium 80 MG Oral Tablet; TAKE 1 TABLET AT BEDTIME Status post insertion of drug eluting coronary artery stent, STEMI (ST elevation myocardial infarction) Renew: Entresto 49-51 MG Oral Tablet; TAKE 1 TABLET BY MOUTH TWICE A DAY Patient Instructions PLAN: Through informed decision making process incorporating patients unique circumstances, the following treatment plan will be initiated: 1. Prescription drug management of cardiovascular medication for efficacy, adherence to treatment, side effect assessment and polypharmacy. Current treatment clinically warranted and to continue with following modifications: - Increase Entresto 49/51mg twice a day (can take 2 twice a day of what you have at home) - may need to separtate morning dose of entresto and coreg by 2 hours. 2. Chem6 in one week 3. Return for follow-up; in the interim, contact the office if new symptoms arise. 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 .lifetyle Please bring all medicines, vitamins, and herbal supplements with you when you come to the office. Prescriptions will not be filled unless you are compliant with your follow up appointments or have a follow up appointment scheduled as per instruction of your physician. Refills should be requested at the time of your visit. Chief Complaint I am doing better than I was CHUCKY DUNLAP is being seen for a 6 week follow-up of coronary artery disease and cardiomyopathy. Patient is ambulatory with steady gait. Last evaluated in clinic by Dr. Herrmann 2 weeks ago with the following medication changes: Brilinta stopped and SOB has resolved Compliant with Plavix Added Entresto (has coverage till December), coreg and lasix for 2 weeks. She has had 17 pound weight loss. Majority was ascites with early satiety and loss of appetite. Compared to last cardiovascular evaluation, patient reports she is doing better. Patient attends to own ADLs and functional ADLs. Patient daily activity includes: started cardiac rehab last week. Patient ambulate in from parking lot without concerns. Patient denies change to exercise tolerance or functional capacity since last evaluation. Prior Angina: chest/shoulder pain Last NTG use: none Current cardiovascular concerns: None No prior JEFF w/u History of Present Illness The patient presents with ischemic heart failure with reduced ejection fraction. The patient's last LV ejection fraction was 35-40%. The patient is NYHA functional Class III. This is stage C heart failure. She has no significant interval events. Symptoms: improved lower extremity edema, resolved dyspnea on exertion, stable fatigue, stable exercise intolerance, denies orthopnea and denies paroxysmal nocturnal dyspnea. Associated symptoms include recent 17 pounds weight loss. Home Monitoring: The patient checks her weight regularly. Weight control has been good. Medications: the patient is adherent with her medication regimen. She denies medication side effects. Due For: electrolytes. Current Meds Medication NameInstruction Aspirin EC 81 MG Oral Tablet Delayed ReleaseTAKE 1 TABLET DAILY. Carvedilol 6.25 MG Oral TabletTake 1 tablet twice daily Clopidogrel Bisulfate 75 MG Oral TabletTAKE 1 TABLET DAILY. ( first dose is 600 mg a total of 8 tablets) Colchicine 0.6 MG Oral TabletTAKE 1 TABLET DAILY x 14 DAYS Entresto 24-26 MG Oral TabletTAKE 1 TABLET BY MOUTH TWICE A DAY Leflunomide 20 MG Oral TabletTAKE 1 TABLET DAILY. Levothyroxine Sodium 112 MCG Oral TabletTAKE 1 TABLET DAILY. Nitroglycerin 0.4 MG Sublingual Tablet SublingualPLACE 1 TABLET UNDER THE TONGUE EVERY 5 MINUTES UP TO 3 DOSES NEEDED FOR CHEST PAIN. NovoLOG FlexPen 100 UNIT/ML SOLNINJECT SUBCUTANEOUSLY DIRECTED. oxyCODONE-Acetamino phen 5-32 (more content not included)... Normal [facility] Tobacco Screening.on 021 Heart Rate Regular [facility] [employer] [facility] Work Phone: Tobacco use status [facility] b) No M [employer] DO Work Phone: Tobacco Screening.on 021 Fall risk assessment a) No falls within the last year [facility] [employer] [address] DO Work Phone: Tobacco use status [facility] b) No [facility] [employer] 250 DO Work Phone: Vital Signs Date Time Vital Sign Value Performing Clinician Facility 10-25-2023 12:59-0500 Body temperature 97.5 [degF] DO [employer] Work Phone: [facility] 10-25-2023 12:59-0500 Body weight 110.67 kg DO [employer] Work Phone: [facility] 10-25-2023 12:59-0500 Diastolic blood pressure 76 mm[Hg] DO [employer] Work Phone: [facility] 10-25-2023 12:59-0500 Heart rate 72 /min DO [employer] Work Phone: [facility] 10-25-2023 12:59-0500 Respiratory rate 16 /min DO Reese House Work Phone: [facility] 10-25-2023 12:59-0500 SaO2% (BldA) [Mass fraction] 100 % DO Reese House Work Phone: [facility] 10-25-2023 12:59-0500 Systolic blood pressure 119 mm[Hg] DO Reese House Work Phone: [facility] 08-10-2023 11:04-0400 Diastolic blood pressure 90 mm[Hg] Luke Herrmann DO Work Phone: [facility] 08-10-2023 11:04-0400 Systolic blood pressure 120 mm[Hg] Luke Herrmann DO Work Phone: [facility] 08-10-2023 10:35-0400 Body height 162.6 cm Luke Herrmann DO Work Phone: [facility] 08-10-2023 10:35-0400 Body mass index (BMI) [Ratio] 42.57 kg/m2 Luke Herrmann DO Work Phone: [facility] 08-10-2023 10:35-0400 Body weight 112.49 kg Luke Herrmann DO Work Phone: [facility] 08-10-2023 10:35-0400 Heart rate 74 /min Luke Herrmann DO Work Phone: [facility] 04-20-2023 11:22-0400 Body height 165.1 cm DO Reese House Work Phone: [facility] 04-20-2023 11:22-0400 Body temperature 98.4 [degF] DO Reese House Work Phone: [facility] 04-20-2023 11:22-040 Body weight 110.81 kg DO Reese House Work Phone: [facility] 04-20-2023 11:22-0400 Diastolic blood pressure 81 mm[Hg] DO Reese House Work Phone: [facility] 04-20-2023 11:22-0400 Heart rate 86 /min DO Reese House Work Phone: [facility] 04-20-2023 11:22-0400 Respiratory rate 20 /min DO Reese House Work Phone: [facility] 04-20-2023 11:22-0400 SaO2% (BldA) [Mass fraction] 97 % DO Reese House Work Phone: [facility] 04-20-2023 11:22-0400 Systolic blood pressure 180 mm[Hg] DO Reese House Work Phone: [facility] 11-08-2022 10:34-0500 Body height 162.56 cm Reese P House Work Phone: [facility] 250 DO Work Phone: 11-08-2022 10:34-0500 Body mass index (BMI) [Ratio] 40.85 kg/m2 Reese P House Work Phone: [facility] 250 DO Work Phone: 11-08-2022 10:34-0500 Body surface area Derived from formula 2.11 m2 Reese P House Work Phone: [facility] 250 DO Work Phone: 11-08-2022 10:34-0500 Body weight 107.96 kg Reese P House Work Phone: [facility] 250 DO Work Phone: 11-08-2022 10:34-0500 Diastolic blood pressure 88 mm[Hg] Reese P House Work Phone: [facility] 250 DO Work Phone: 11-08-2022 10:34-0500 Heart rate 80 /min Reese P House Work Phone: [facility] 250 DO Work Phone: 11-08-2022 10:34-0500 Systolic blood pressure 138 mm[Hg] Reese P House Work Phone: [facility] 250 DO Work Phone: 10-13-2022 08:35-0500 Body temperature 97.8 [degF] DO Reese House Work Phone: [facility] 10-13-2022 08:35-0500 Body weight 106.7 kg DO Reese House Work Phone: [facility] 10-13-2022 08:35-0500 Diastolic blood pressure 78 mm[Hg] DO Reese House Work Phone: [facility] 10-13-2022 08:35-0500 Heart rate 79 /min DO Reese House Work Phone: [facility] 10-13-2022 08:35-0500 Respiratory rate 16 /min DO Reese House Work Phone: [facility] 10-13-2022 08:35-0500 SaO2% (BldA) [Mass fraction] 100 % DO Reese House Work Phone: [facility] 10-13-2022 08:35-0500 Systolic blood pressure 135 mm[Hg] DO Reese House Work Phone: [facility] 03-01-2022 09:02-0400 Body height 162.56 cm DO Reese House Work Phone: [facility] 03-01-2022 09:02-0400 Body mass index (BMI) [Ratio] 40.3 kg/m2 DO Reese House Work Phone: [facility] 03-01-2022 09:02-0400 Body weight 106.59 kg DO Reese House Work Phone: [facility] 03-01-2022 09:02-0400 Diastolic blood pressure 70 mm[Hg] DO Reese House Work Phone: [facility] 03-01-2022 09:02-0400 Heart rate 76 /min DO Reese House Work Phone: [facility] 03-01-2022 09:02-0400 Respiratory rate 18 /min DO Reese House Work Phone: [facility] 03-01-2022 09:02-0400 SaO2% (BldA) [Mass fraction] 98 % DO Reese House Work Phone: [facility] 03-01-2022 09:02-0400 Systolic blood pressure 133 mm[Hg] DO Reese House Work Phone: [facility] 02-02-2022 13:50-0400 Body temperature 98 [degF] DO Reese House Work Phone: [facility] 02-02-2022 13:50-0400 Body weight 110.67 kg DO Reese House Work Phone: [facility] 02-02-2022 13:50-0400 Diastolic blood pressure 72 mm[Hg] DO Reese House Work Phone: [facility] 02-02-2022 13:50-0400 Heart rate 80 /min DO Resee House Work Phone: [facility] 02-02-2022 13:50-0400 Respiratory rate 16 /min DO Reese House Work Phone: [facility] 02-02-2022 13:50-0400 SaO2% (BldA) [Mass fraction] 95 % DO Reese House Work Phone: [facility] 02-02-2022 13:50-0400 Systolic blood pressure 146 mm[Hg] DO Reese House Work Phone: [facility] 01-13-2022 08:19-0400 Body height 165.1 cm DO Reese House Work Phone: [facility] 12-28-2021 15:13-0400 Diastolic blood pressure 73 mm[Hg] DO Reese House Work Phone: [facility] 12-28-2021 15:13-0400 Heart rate 72 /min DO Reese House Work Phone: [facility] 12-28-2021 15:13-0400 Respiratory rate 18 /min DO Reese House Work Phone: [facility] 12-28-2021 15:13-0400 SaO2% (BldA) [Mass fraction] 95 % DO Reese House Work Phone: [facility] 12-28-2021 15:13-0400 Systolic blood pressure 141 mm[Hg] DO Reese House Work Phone: [facility] 12-28-2021 13:48-0400 Body temperature 98.1 [degF] DO Reese House Work Phone: [facility] 12-28-2021 13:48-0400 Inhaled oxygen flow rate 6 L/min DO Reese House Work Phone: [facility] 12-28-2021 11:39-0400 Body height 162.56 cm DO Reese House Work Phone: [facility] 12-28-2021 11:39-0400 Body mass index (BMI) [Ratio] 41.1 kg/m2 DO Reese House Work Phone: [facility] 12-28-2021 11:39-0400 Body weight 108.86 kg DO Reese House Work Phone: [facility] 11-16-2021 09:35-0500 Body temperature 97.9 [degF] DO Reese House Work Phone: [facility] 11-16-2021 09:35-0500 Diastolic blood pressure 60 mm[Hg] DO Reese House Work Phone: [facility] 11-16-2021 09:35-0500 Heart rate 67 /min DO Reese House Work Phone: [facility] 11-16-2021 09:35-0500 Respiratory rate 16 /min DO Reese House Work Phone: [facility] 11-16-2021 09:35-0500 SaO2% (BldA) [Mass fraction] 100 % DO Reese House Work Phone: [facility] 11-16-2021 09:35-0500 Systolic blood pressure 118 mm[Hg] DO Reese House Work Phone: [facility] 10-28-2021 11:19-0500 Diastolic blood pressure 84 mm[Hg] Reese Good House Work Phone: [facility] 250 DO Work Phone: 10-28-2021 11:19-0500 Systolic blood pressure 152 mm[Hg] Reese Good House Work Phone: [facility] 250 DO Work Phone: 10-28-2021 10:57-0500 Body height 162.56 cm Reese Good House Work Phone: [facility] 250 DO Work Phone: 10-28-2021 10:57-0500 Body mass index (BMI) [Ratio] 43.77 kg/m2 Reese Good [facility] Work Phone: [facility] 250 DO Work Phone: 10-28-2021 10:57-0500 Body surface area Derived from formula 2.17 m2 Reese Good House Work Phone: [facility] 250 DO Work Phone: 10-28-2021 10:57-0500 Body weight 115.67 kg Reese P House Work Phone: [facility] 250 DO Work Phone: 10-28-2021 10:57-0500 Diastolic blood pressure 100 mm[Hg] Reese P House Work Phone: [facility] 250 DO Work Phone: 10-28-2021 10:57-0500 Heart rate 77 /min Reese P House Work Phone: [facility] 250 DO Work Phone: 10-28-2021 10:57-0500 Systolic blood pressure 165 mm[Hg] Reese P House Work Phone: [facility] 250 DO Work Phone: 10-11-2021 13:37-0500 Diastolic blood pressure 84 mm[Hg] Reese P House Work Phone: [facility] 250 DO Work Phone: 10-11-2021 13:37-0500 Heart rate 82 /min Reese P House Work Phone: [facility] 250 DO Work Phone: 10-11-2021 13:37-0500 Systolic blood pressure 160 mm[Hg] Reese P House Work Phone: [facility] 250 DO Work Phone: 10-11-2021 13:30-0500 Body height 162.56 cm Reese P House Work Phone: [facility] 250 DO Work Phone: 10-11-2021 13:30-0500 Body mass index (BMI) [Ratio] 44.29 kg/m2 Reese P House Work Phone: [facility] 250 DO Work Phone: 10-11-2021 13:30-0500 Body surface area Derived from formula 2.18 m2 Reese P House Work Phone: [facility] 250 DO Work Phone: 10-11-2021 13:30-0500 Body weight 117.03 kg Reese P House Work Phone: [facility] 250 DO Work Phone: 10-11-2021 13:30-0500 Diastolic blood pressure 100 mm[Hg] Reese P House Work Phone: [facility] 250 DO Work Phone: 10-11-2021 13:30-0500 Systolic blood pressure 160 mm[Hg] Reese P House Work Phone: [facility] 250 DO Work Phone: 10-05-2021 08:27-0500 28.8 1 Reese P House Work Phone: [facility] 250 DO Work Phone: Comment on above: [facility] 10-04-2021 12:36-0500 Body height 162.56 cm Reese P House Work Phone: [facility] 250[facility] [place] Work Phone: 10-04-2021 12:36-0500 Body mass index (BMI) [Ratio] 44.11 kg/m2 Reese P House Work Phone: [facility] 250[facility] [place] Work Phone: 10-04-2021 12:36-0500 Body surface area Derived from formula 2.18 m2 Reese P House Work Phone: [facility] [place] Work Phone: 10-04-2021 12:36-0500 Body weight 116.58 kg Reese P House Work Phone: [facility] [place] Work Phone: 10-04-2021 12:36-0500 Diastolic blood pressure 94 mm[Hg] Reese P House Work Phone: [facility] [place] Work Phone: 10-04-2021 12:36-0500 Heart rate 72 /min Reese P House Work Phone: [facility] 250[facility] [place] Work Phone: 10-04-2021 12:36-0500 Systolic blood pressure 158 mm[Hg] Reese P House Work Phone: [facility] [place] Work Phone: 10-04-2021 12:36-0500 55 1 Reese P House Work Phone: [facility] 250A [place] Work Phone: Comment on above: [id number] 09-20-2021 12:36-0500 Body height 162.56 cm Reese P House Work Phone: [facility] 250 DO Work Phone: 09-20-2021 12:36-0500 Body mass index (BMI) [Ratio] 44.8 kg/m2 Reese P House Work Phone: [facility] 250 DO Work Phone: 09-20-2021 12:36-0500 Body surface area Derived from formula 2.19 m2 Reese P House Work Phone: [facility] 250 DO Work Phone: 09-20-2021 12:36-0500 Body weight 118.39 kg Reese P House Work Phone: [facility] 250 DO Work Phone: 09-20-2021 12:36-0500 Diastolic blood pressure 84 mm[Hg] Reese P House Work Phone: [facility] 250 DO Work Phone: 09-20-2021 12:36-0500 Heart rate 74 /min Reese P House Work Phone: [facility] 250 DO Work Phone: 09-20-2021 12:36-0500 Systolic blood pressure 126 mm[Hg] Reese P House Work Phone: [facility] 250 DO Work Phone: 08-31-2021 14:50-0500 Body height 162.56 cm Reese P House Work Phone: [facility] 250 DO Work Phone: 08-31-2021 14:50-0500 Body mass index (BMI) [Ratio] 47.72 kg/m2 Reese P House Work Phone: [facility] 250 DO Work Phone: 08-31-2021 14:50-0500 Body surface area Derived from formula 2.25 m2 Reese P House Work Phone: [facility] 250 DO Work Phone: 08-31-2021 14:50-0500 Body weight 126.1 kg Reese P House Work Phone: [facility] 250 DO Work Phone: 08-31-2021 14:50-0500 Diastolic blood pressure 112 mm[Hg] Reese P House Work Phone: [facility] 250 DO Work Phone: 08-31-2021 14:50-0500 Heart rate 84 /min Reese P House Work Phone: [facility] 250 DO Work Phone: 08-31-2021 14:50-0500 Systolic blood pressure 166 mm[Hg] Reese P House Work Phone: [facility] 250 DO Work Phone: 08-24-2021 12:10-0500 50 1 Reese P House Work Phone: [facility] 250 DO Work Phone: Comment on above: [id number] Encounters Encounter Date Encounter Type Care Provider Facility Start: 10-31-2023 End: 11-01-2023 ambulatory Ant Gregory MD Facility:[facility] Start: 10-25-2023 End: 10-25-2023 Registered Recurring DO Reese House Work Phone: [facility] Work Phone: Start: 10-25-2023 End: 10-25-2023 ambulatory DO Reese House Work Phone: [facility] Work Phone: Start: 08-10-2023 End: 08-10-2023 ambulatory [facility] Ambulatory Start: 08-10-2023 End: 08-10-2023 Office outpatient visit 25 minutes [facility] DO Work Phone: [facility] Comment on above: Coronary artery dise ase involving inaja coronary artery of inaja heart without angina pectoris; History of ST elevation myocardial infarction (STEMI); Primary hypertension; Ischemic cardiomyopathy; Mixed hyperlipidemia; Type 2 diabetes mellitus with other specified complication, unspecified whether intermediate teacher insulin use ([facility]); Class 3 severe obesity due to excess calories with serious comorbidity and body mass index (BMI) of 40.0 to 44.9 in adult ([facility]); Rheumatoid arthritis, involving unspecified site, unspecified whether rheumatoid factor present ([facility]); S/P right coronary artery (RCA) stent placement Start: 07-31-2023 End: 08-01-2023 ambulatory Ant Gregory MD Facility:[facility] Start: 07-24-2023 End: 07-24-2023 ambulatory DO Reese Nixon Work Phone: [facility] Work Phone: Start: 07-24-2023 End: 07-24-2023 Registered Recurring DO Reese House Work Phone: [facility] Work Phone: Start: 07-06-2023 End: 07-07-2023 ambulatory Ant Gregory MD Facility:[facility] Start: 06-27-[address] Reese Nixon Facility: Start: 06-21-2023 Rx Renewal Reese P Hous e Work Phone: [facility] 250 DO Work Phone: Start: 04-20-2023 End: 04-20-2023 ambulatory DO Reese Nixon Work Phone: [facility] Work Phone: Start: 04-20-2023 End: 04-20-2023 Registered Recurring DO Reese Nixon Work Phone: [facility] Work Phone: Start: 2022 Rx Renewal Reese P Hous e Work Phone: [facility] 250 DO Work Phone: Start: 12-13-2022 Rx Renewal Reese P Hous e Work Phone: [facility] 250 DO Work Phone: Start: 11-30-2022 End: 11-30-2022 ambulatory Reese Nixon Facility:[facility] Start: 11-12-2022 End: 11-13-[address] LUKE HERRMANN Facility: Start: 11-08-[address] Luke Herrmann Facility: Start: 11-08-2022 FUV, Provider: Luke Herrmann, Status: Pen, Time: 10:10 AM Reese P House Work Phone: [facility] 250 DO Work Phone: Start: 11-08-2022 Office outpatient vi sit 25 minutes Reese P House Work Phone: [facility] 250 DO Work Phone: Start: 11-07-2022 Rx Renewal Reese P Hous e Work Phone: [facility] 250 DO Work Phone: Start: 10-31-2022 Rx Renewal Reese P Hous e Work Phone: [facility] 250 DO Work Phone: Start: 10-13-2022 End: 10-13-2022 ambulatory DO Reese Nixon Work Phone: [facility] Work Phone: Start: 10-13-2022 End: 10-13-2022 Registered Recurring DO Reese Nixon Work Phone: [facility] Work Phone: Start: 09-01-2022 FUV, Provider: Luke Herrmann, Status: Pen, Time: 11:40 AM Reese P House Work Phone: [facility] 250 DO Work Phone: Start: 08-30-2022 Rx Change Reese P Hous e Work Phone: [facility] 250 DO Work Phone: Start: 08-29-2022 End: 08-30-2022 ambulatory ZOE LATIF Facility:[facility] Start: 08-09-2022 Rx Renewal Reese P Hous e Work Phone: [facility] 250 DO Work Phone: Start: 06-16-2022 End: 06-17-[address] DOROTEO SAMAYOA Facility:[facility] Start: 05-30-2022 End: 05-31-2022 ambulatory ZOE LATIF Facility:[facility] Start: 04-30-2022 End: 05-01-[address] REESE NIXON Facility:[facility] Start: 03-21-2022 End: 03-22-[address] DOROTEO SAMAYOA Facility:[facility] Start: 03-01-2022 End: 03-01-2022 Admission to same day surgery center DO Reese Nixon Work Phone: [facility] [place] Start: 02-02-2022 End: 02-02-2022 Registered Recurring DO Reese Nixon Work Phone: [facility] Start: 01-26-2022 End: 01-27-[address] DOROTEO SAMAYOA Facility:[facility] Start: 12-28-2021 End: 12-28-2021 Admission to same day surgery center DO Reese Nixon Work Phone: [facility] [place] Start: 12-27-2021 End: 12-28-[address] DOROTEO SAMAYOA Facility:[facility] Start: 12-24-2021 End: 12-24-2021 Patient encounter procedure DO Reese Nixon Work Phone: [facility]Surgical [facility] Start: 12-21-2021 Rx Renewal Reese P Hous e Work Phone: [facility] 250 DO Work Phone: Start: 12-14-2021 End: 12-14-2021 Patient encounter procedure DO Reese Nixon Work Phone: [facility] Start: 12-08-2021 End: 12-09-[address] DOROTEO SAMAYOA Facility:[facility] Start: 11-16-2021 End: 11-16-2021 Admission to same day surgery center DO Reese Nixon Work Phone: [facility]Ul[facility]ound [facility] Start: 11-04-2021 End: 11-04-2021 Patient encounter procedure DO Reese Hussain Work Phone: [facility] Start: 10-28-2021 Office outpatient vi sit 25 minutes Reese P House Work Phone: [facility] 250 DO Work Phone: Start: 10-11-2021 Office outpatient vi sit 5 minutes Reese P House Work Phone: [facility] 250 DO Work Phone: Start: 10-04-2021 Patient encounter procedure Reese P House Work Phone: [facility] [place] Work Phone: Start: 09-20-2021 Office outpatient vi sit 15 minutes Reese Nixon Work Phone: [facility] 250 DO Work Phone: Start: 09-20-2021 Rx Renewal Reese Good Hous e Work Phone: [facility] 250 DO Work Phone: Start: 09-03-2021 Telephone encounter Reese Nixon Work Phone: [facility] DO Work Phone: Start: 08-31-2021 Transitional care nikkie easoncleopatra srvc 7 day discharge Reese Nixon Work Phone: [facility] Perera DO Work Phone: Procedures Date Procedure Procedure Detail Performing Clinician Start: 08-09-2023 History of placement of stent for coronary artery disease S/P right coronary artery (RCA) stent placement Luke Steven DO Work Phone: Start: 02-21-2023 Dual energy X-ray absorptiometry DO Reese [employer] Phone: Start: 03-01-2022 CT of chest without contrast DO Reese [employer] Phone: Start: 02-07-2022 Positron emission tomography with computed tomography DO Reese [employer] Phone: Start: 12-28-2021 Mammography of left breast specimen DO Reese [employer] Phone: Start: 12-28-2021 Biopsy of breast DO Janay stewart [employer] Phone: Start: 12-28-2021 Radionuclide sentine l lymph node study DO Reese [employer] Phone: Start: 12-27-2021 Mammography of left breast DO Reese [employer] Phone: Start: 12-27-2021 Ultrasonography guid ed needle localization of lesion of left breast DO Reese [employer] Phone: Start: 11-16-2021 Mammography of left breast DO Reese [employer] Work Phone: Start: 11-16-2021 Core needle biopsy o f breast using ultrasound guidance DO Leigh [employer] Work Phone: Start: 11-04-2021 Ultrasonography of l eft breast DO [employer] Work Phone: Start: 11-04-2021 Bilateral mammography D O [employer] Work Phone: Start: 10-04-2021 Echocardiography Trace nilsa [employer] Work Phone: History of placement of stent for coronary artery disease Status post insertion of drug eluting coronary artery stent Reese Good [employer] Work Phone: History of placement of stent for coronary artery disease S/P right coronary artery (RCA) stent placement Luke Herrmann [employer] Work Phone: Lumpectomy of breast Reese Good [employer] Work Phone: Operative procedure on ankle Reese Good [employer] Work Phone: NEGATED: Highlighted row has not occurred! Total colonoscopy Reese Good [employer] Work Phone: Plan of Treatment Date Care Activity Detail Author Start: 08-10-2023 End: 08-10-2024 Alanine aminotransferase [Enzymatic activity/volume] in Serum or Plasma by With P-5'-P Alanine Aminotransferase Lab Routine Mixed hyperlipidemia Expected: 08/10/2023 (Approximate), Expires: 08/10/2024 [facility] Service Area Work Phone: Comment on above: Expected: 08/10/2023 (Approximate), Expi res: 08/10/2024 Start: 08-10-2023 End: 08-10-2024 Aspartate aminotransferase [Enzymatic activity/volume] in Serum or Plasma by With P-5'-P Aspartate Aminotransferase Lab Routine Mixed hyperlipidemia Expected: 08/10/2023 (Approximate), Expires: 08/10/2024 [facility] Work Phone: Comment on above: Expected: 08/10/2023 (Approximate), Expi res: 08/10/2024 Start: 08-10-2023 End: 08-10-2024 C reactive protein [Mass/volume] in Serum or Plasma by High sensitivity method High sensitivity CRP Lab Routine Coronary artery disease involving inaja coronary artery of inaja heart without angina pectoris Ischemic cardiomyopathy Expected: 08/10/2023 (Approximate), Expires: 08/10/2024 [facility] Work Phone: Comment on above: Expected: 08/10/2023 (Approximate), Expi res: 08/10/2024 Start: 08-10-2023 End: 08-10-2024 Lipid 1996 panel - Serum or Plasma Lipid Panel Lab Routine Mixed hyperlipidemia Expected: 08/10/2023 (Approximate), Expires: 08/10/2024 [facility] Work Phone: Comment on above: Expected: 08/10/2023 (Approximate), Expi res: 08/10/2024 Start: 06-27-2023 FUV, Provider: Luke Herrmann, Status: Pen, Time: 11:20 AM FUV, Provider: Luke Herrmann, Status: Pen, Time: 11:20 AM [facility] 250 DO Work Phone: Start: 06-16-2023 Influenza vaccination Influenza Vaccine (#1) [facility] Start: 11-08-2022 FUV, Provider: Luke Herrmann, Status: Pen, Time: 10:10 AM FUV, Provider: Luke Herrmann, Status: Pen, Time: 10:[address] [facility] 250 DO Work Phone: Start: 09-01-2022 FUV, Provider: Luke Herrmann, Status: Pen, Time: 11:40 AM FUV, Provider: Luke Herrmann, Status: Pen, Time: 11:[address] [facility] DO Work Phone: Start: 05-10-2022 FUV, Provider: Luke Herrmann, Status: Pen, Time: 1:50 PM FUV, Provider: Luke Herrmann, Status: Pen, Time: 1:50 PM [facility] 250 DO Work Phone: Start: 12-07-2021 FUV, Provider: Luke Herrmann, Status: Pen, Time: 2:00 PM FUV, Provider: Luke Herrmann, Status: Pen, Time: 2:00 PM -[facility] 250 DO Work Phone: Start: 10-27-2021 FUV, Provider: Luke Herrmann, Status: Pen, Time: 11:30 AM FUV, Provider: Luke Herrmann, Status: Pen, Time: 11:30 AM [facility] 250 DO Work Phone: Start: 10-11-2021 NURSEVST, Provider: ROSA STEPHENSON BAG ADJUSTER 1,[id number], Status: Pen, Time: 1:00 PM NURSE[facility]ST, Provider: ROSA STEPHENSON BAG ADJUSTER 1,[id number], Status: Pen, Time: 1:00 PM [facility] [place] Work Phone: Start: 10-04-2021 ECHO, Provider: [facility] [facility] 01,[id number], Status: Pen, Time: 1:30 PM ECHO, Provider: [facility] 01,[id number], Status: Pen, Time: 1:30 PM [facility] 250 DO Work Phone: Start: 10-04-2021 FUV, Provider: Salima Penaloza, Status: Pen, Time: 12:30 PM FUV, Provider: Salima Penaloza, Status: Pen, Time: 12:30 PM [facility] 250 DO Work Phone: Start: 09-20-2021 FUV, Provider: Salima Penaloza, Status: Pen, Time: 12:30 PM FUV, Provider: Salima Penaloza, Status: Pen, Time: 12:30 PM [facility] 250 DO Work Phone: Start: 2006 Zoster Vaccines (1 of 2) Zoster Vaccines (1 of 2) [facility] Start: 1978 DTaP/Tdap/Td Vaccines (1 - Tdap) DTaP/Tdap/Td Vaccines (1 - Tdap) [facility] Start: 12-23-1975 Urine screening for protein Diabetes: Urine Protein Screening [facility] Start: 1974 Hepatitis C screening Hepatitis C Screening [facility] Start: 1966 Diabetic foot examination Diabetes: Foot Exam [facility] Start: 1966 Glaucoma screening Diabetes: Retinopathy Screening [facility] Start: 1962 Pneumococcal Vaccine: 65+ Years (1 - PCV) Pneumococcal Vaccine: 65+ Years (1 - PCV) [facility] Start: 06-24-1957 COVID-19 Vaccine (#1) COVID-19 Vaccine (#1) [facility] Start: 1956 Hemoglobin A1c measurement Diabetes: Hemoglobin A1C [facility] Start: 1956 Lipid panel Lipid Panel [facility] Start: 1956 Medicare Annual Wellness Visit Medicare Annual Wellness Visit (AWV) [facility] Start: 1956 Screening for malignant neoplasm of colon [facility] Start: 1956 Screening for osteoporosis Bone Density Scan [facility] Start: 1956 Thyroid stimulating hormone measurement TSH Level [facility] Computed tomography for radiotherapy planning [facility] MG Breast - bilatera l Diagnostic [facility] Patient referral [facility] Work Phone: [facility] Payers Date Payer Category Payer Unknown 2022 Self-pay [id number] 2022 Unknown [id number] 2022 Unknown [id number] 2014 Medicare MEDICARE MEDICAR E PART A AND B [id number] 2014-Present [address] [place] [address] [id number] 1959 Medicare [id number] 1959 Unknown [id number] 1959 Unknown [id number] 1956 Unknown [id number] 1956 Unknown [id number] [id number] 1956 Unknown [id number] 2.16.840.1.960719.3.579.2.593 1956 Unknown [id number] 2.16.840.1.379812.3.579.2.593 1956 Unknown [id number] 2.16.840.1.417700.3.579.2.593 1956 Unknown [id number] 2.16.840.1.053489.3.579.2.593 1956 Unknown [id number] 2.16.840.1.385696.3.579.2.593 1956 Unknown [id number] 2.16.840.1.385029.3.579.2.593 1956 Unknown [id number] 2.16.840.1.982456.3.579.2.593 1956 Unknown [id number] 2.16.840.1.602152.3.579.2.593 1956 Unknown [id number] 2.16.840.1.344283.3.579.2.593 1956 Unknown [id number] 2.16.840.1.360755.3.579.2.593 1956 Unknown [id number] 2.16.840.1.240547.3.579.2.356 1956 Unknown [id number] 2.16.840.1.151696.3.579.2.356 1956 Unknown [id number] 2.16.840.1.522741.3.579.2.1244 1956 Unknown [id number] 2.16.840.1.320166.3.579.2.718 1956 Unknown [id number] 2.16.840.1.227935.3.579.2.718 1956 Unknown [id number] [id number] Unknown [id number] [id number] Unknown [id number] [id number] Social History Date Type Detail Facility Start: 08-10-2023 No alcohol use No alcohol use [facility] 250 DO Work Phone: Comment on above: 2 cups daily, diet p op occasional; 1/2 cup daily; Start: 01-13-2022 End: 10-25-2023 Tobacco smoking status TNIS Never smoked tobacco (finding) [facility] Start: 1955 Sex Assigned At Female F [facility] Start: 08-10-2023 Tobacco use and exposure Smokeless tobacco non-user [facility] Work Phone: Start: 08-10-2023 Alcohol intake Lifetime non-d amanda (finding) [facility] Work Phone: Start: 08-10-2023 Tobacco use panel [facility] Work Phone: Start: 1955 Sex Assigned At Not on file [facility] Work Phone: Start: 07-31-2023 End: 08-10-2023 Exposure to SARS-CoV-2 (event) Not sure [facility] Medical Equipment Procedure Code Equipment Code Equipment Origin al Text Equipment Identifier Dates Biopsy, breast, with lumpectomy Imaging lesion localization marker, implantable [id number] FDA Start: 12-28-2021 Drug-eluting coronary artery stent, [id number]-ut lymer-coated [id number] FDA Start: 08-23-2021 Drug-eluting coronary artery stent, [id number]-[id number]-er lymer-coated [id number] FDA Start: 08-23-2021 Goals Date Patient Goal Desired Activity /State Clinical Notes 01-13-2022 to 08-10-2023 Luke Herrmann, DO - 08/10/2023 10:00 AM EDTPatient Instructions Note Date & Type Note Facility 08-10-2023 History of Present illness Narrative Subjective Chucky Dunlap is a 67 y.o. female Chief Complaint Follow-up 67-year-old female returns for routine follow-up she is doing well other than symptomatic rheumatoid arthritis and musculoskeletal pain that persists. She has no cardiovascular complaints or angina or nitrate usage recurrent hospitalizations. She had inferior HI July 2021 with AngioJet thrombectomy and 2 stents in the proximal and distal RCA at that time initially was severe LV dysfunction that normalized thereafterwards. She has had no heart failure events, no anginal or nitrate events. She has underlying morbid obesity, diabetes, rheumatoid arthritis, she is satisfied her DAPT therapy and duration. After informed decision-making process performed today we will de-escalate her DAPT therapy however based on new data and new studies that have come out, we will switch her to clopidogrel single agent antiplatelet therapy (superior results and recent trial), and discontinue her aspirin, obtain a CRP and lipid panel, follow-up in 1 year. Review of Systems All other systems reviewed and are negative. Visit Vitals BP (!) 140/110 (BP Location: Right arm, Patient Position: Sitting) Pulse 74 Ht 1.626 m (5' 4 ) Wt 112 kg (248 lb) BMI 42.57 kg/m Smoking Status Never BSA 2.25 m Objective Physical Exam Constitutional: Appearance: Normal appearance. She is normal weight. HENT: Nose: Nose normal. Neck: Vascular: No carotid bruit. Cardiovascular: Rate and Rhythm: Normal rate. Pulses: Normal pulses. Heart sounds: Normal heart sounds. Pulmonary: Effort: Pulmonary effort is normal. Abdominal: General: Bowel sounds are normal. Palpations: Abdomen is soft. Genitourinary: Rectum: Normal. Musculoskeletal: General: Normal range of motion. Cervical back: Normal range of motion. Right lower leg: No edema. Left lower leg: No edema. Skin: General: Skin is warm and dry. Neurological: General: No focal deficit present. Mental Status: She is alert. Psychiatric: Mood and Affect: Mood normal. Behavior: Behavior normal. Thought Content: Thought content normal. Judgment: Judgment normal. Current Medications Current Outpatient Medications: aspirin 81 mg EC tablet, Take 1 tablet (81 mg) by mouth once daily., Disp: , Rfl: atorvastatin (Lipitor) 40 mg tablet, Take 1 tablet (40 mg) by mouth once daily at bedtime., Disp: , Rfl: carvedilol (Coreg) 12.5 mg tablet, Take 1 tablet (12.5 mg) by mouth 2 times a day., Disp: , Rfl: clopidogrel (Plavix) 75 mg tablet, Take 1 tablet (75 mg) by mouth once daily., Disp: , Rfl: insulin aspart (NovoLOG) 100 unit/mL refill for patient own pump, Inject under the skin., Disp: , Rfl: insulin degludec (Tresiba U-100 Insulin) 100 unit/mL injection, Inject under the skin., Disp: , Rfl: letrozole (Femara) 2.5 mg tablet, Take 1 tablet (2.5 mg total) by mouth once daily. Take with or without food., Disp: , Rfl: levothyroxine (Synthroid, Levoxyl) 112 mcg tablet, Take 1 tablet (112 mcg) by mouth once daily., Disp: , Rfl: nitroglycerin (Nitrostat) 0.4 mg SL tablet, PLACE 1 TABLET UNDER THE TONGUE EVERY 5 MINUTES FOR UP TO 3 DOSES NEEDED FOR CHEST PAIN.CALL 911 IF PAIN PERSISTS., Disp: , Rfl: oxyCODONE-acetaminophen (Percocet) 5-325 mg tablet, Take 1 tablet 3 times daily as needed, Disp: , Rfl: sacubitriL-valsartan (Entresto) 49-51 mg tablet, Take 1 tablet by mouth 2 times a day., Disp: , Rfl: spironolactone (Aldactone) 25 mg tablet, Take 1 tablet (25 mg) by mouth once daily., Disp: , Rfl: Assessment/Plan No diagnosis found. documented in this encounter [facility] Work Phone: 08-10-2023 Instructions Ajith Metz MA - 08/10/2023 10:00 AM EDT Please bring all medicines, vitamins, and herbal supplements with you when you come to the office. Prescriptions will not be filled unless you are compliant with your follow up appointments or have a follow up appointment scheduled as per instruction of your physician. Refills should be requested at the time of your visit. documented in this encounter [facility] Work Phone: 07-25-2023 Progress note Note Date/Time July 24, 2023 11:51am [facility] [place] [address] Hem/Onc Follow Up Note - OP Signed Patient: Chucky Dunlap MR#: [id number] : 1955 Acct:[id number] Age/Sex: 67 / F Type: REG RCR Copies to: DO Salty James DO~ Subjective Date/Time of Service: Date of Service: 07/24/2023 Time of Service: 11:50 Chief Complaint: Patient is here for a 6 month follow up. Had a dexa scan in February. Patient states that she is not taking Anastrozole due to it causing her toomuch pain. HPI: 07/24/2023: Chucky is contacted via telephone to review symptoms regarding changeof AI therapy from anastrozole to letrozole. She reports that she is doing okay;has been taking letrozole for closer to 3 months now and notes significant change in arthralgias/myalgias or joint symptoms with restarting AI therapy. Shehas not followed up with Dr. Samayoa in ~ 6 months; and reports current RA medications are not working well. She has had several RA flares and is requesting a short course of prednisone to hold her over until she can be seen by her PCP on 07/31/2023. Otherwise, denies breast changes or concerns. She is is scheduled for in person exam/follow up in September 2023. 04/20/2023: Chucky is here for interval 6 moth follow up; completed radiation therapy in February 2022. She was started on anastrazole at that time; but since her last follow up appointment 6 months ago, has stopped taking anastrazole due to intolerable joint aches/pains and myalgias. She stopped taking this ~ 3 months, but did not notify the clinic. Reportedly, she noted no significant improvement in joint aches/pains, despite stopping anastrazole. She attributes many of her symptoms to underlying rheumatoid arthritis, presently on hydroxychloroquine + leflunomide?managed by Dr. Samayoa of rheumatology. She follows him every 3-4 months and is still seeing Dr. Gonzalez every 3 months; with last exam and follow up ~ 6 weeks ago. Last diagnostic mammogram in November 2022 showed no evidence of recurrence. Had recent DEXA scan in February 2023 that showed a few areasof osteopenia; otherwise normal. She maintains Calcium + Vitamin D3 and is taking oral Fosamax 70 mg PO once daily. Denies headaches, fever/chills, recent/recurrent infections, changes on self breast exam, lymphadenopathy, unintentional weight loss or new bony pain. 10/13/2022: W transferred her care from Dr. Patel to Dr. Latif of pulmonary medicine at [place]. Her most recent follow-up with him after CT of the chest showed regression of prior pulmonary nodules. These are felt to be due to rheumatoid nodules. She will continue follow-up with him as directed. She remains on the same regimen for rheumatoid arthritis with Dr. Samayoa who she saw about 6 weeks ago. Otherwise she continues to tolerate endocrine therapy well with anastrozole 1 mg daily. She denies any hot flashes, myalgias, dyspepsia, or rashes. No significant pain or skin changes over prior radiation site. She does have history of hidradenitis suppurativa and has a moist skin rash in her inframammary folds and we will add Nystop topical powder to her topical steroid. Next follow-up with me in 6 months or sooner as needed. She will have 1 year follow-up mammogram ordered by Dr. Gonzalez when she sees him next week and will continue to follow with him every 3 to 4 months. 04/04/2022: Chucky is here for 1 month toxicity visit following initiation of adjuvant endocrine therapy with anastrozole. She denies any untoward side effects related to endocrine therapy, namely hot flashes, myalgias or arthralgias. She is mildly fatigued since completing radiation on 03/10/2022, but overall is doing well. She notes that she had subsequent follow-up with following PET/CT scan for pleural nodules that had increased FDG activity. The patient reports that she was going to undergo biopsy, however, the nodules appear to have decreased in size and biopsy was aborted. Dr. Das since coordinated longitudinal follow-up with Dr. Latif (pulmonology) to follow-up with serial CT scan. She denies any significant pain or changes in breast self exam. She follows closely with Dr. Gonzalez (will see next week) and will see radiation oncology today for 1 month skin recheck/follow up. 02/02/2022: Radha is here for follow-up of cancer type ID testing. This returned at low risk with recurrence score 19, 6% risk of distant recurrence at 9 years and less than 1% chemotherapy benefit. She underwent evaluation by Dr. Whiteside due to uptake within the right palatine tonsils on PET/CT, but no lesionswere seen and he has not requested any further follow-up. She has not had any follow-up with Dr. Patel for evaluation of pleural nodules that had increased FDG avidity. I contacted Dr. Patel today and we scheduled a subsequent PET/CT within the next week to determine if there was any interval change in size or FDG avidity of her pulmonary nodules and whether biopsy would proceed prior to planned adjuvant radiation therapy. She will have subsequent follow-up with after her PET/CT I will then coordinate when she may proceed to her radiation therapy. -- Since she is not a candidate for chemotherapy, we did discuss initiation of hormonal therapy with anastrozole 1 mg daily. This may be initiated following her radiation therapy, and subsequent follow-up with me will be after 1 month ofadjuvant anastrozole. We will coordinate her medical oncology follow-up after we determine the plan for work-up of the pulmonary nodules as noted above. Her most recent DEXA scan was performed February 12, 2021 at [facility] revealing baseline osteopenia/decreased bone density. This will be followed every 2 years while on aromatase inhibitor therapy. We also discussed other potential adverse effects of therapy including hot flashes, myalgias, dyspepsia, and uncommon rashes. PREVIOUS HISTORY: Original consult 01/13/2022 This is a 66-year-old lady with a recent complicated history. She notes that inAugust 2020 she was diagnosed with pneumonia and had persistent chest wall pain therefore was referred for follow-up chest x-ray and subsequent CT. She was found nodules within the left lung base. Dr. Latif at [place] referred her to Dr. Patel of CT surgery for possible biopsy. Prior to this referral she reports having a myocardial infarction in August 2021 with placement of stentsand was placed on antiplatelet therapy, therefore Dr. Patel ordered a PET/CT which showed pleural nodules in the lung bases with increased FDG avidity, most prominently in the left lung base with SUV 5.5. She was also found to have uptake within right palatine tonsils with SUV 4.7 that may be reactive and she is scheduled to see Dr. Whiteside of ENT on 01/27/2022. A third finding was subtle increased FDG uptake in the left breast with SUV 3.0. Patient had no personal or family history of breast cancer and had no mammography for the last 20 years therefore she was sent for mammogram and ultrasound. She did not have any palpable masses, pain, or skin changes of the left breast. Left breast ultrasound on 11/04/2021 showed a 2.2 x 1.6 x 1.5 cm lesion taller more than wide at the 1 to 2 o'clock position 5 cm from the nipple. This correlated to 1.7 cm focal asymmetry on diagnostic mammography. Core needle biopsy was performed 11/24/2021 revealing invasive lobular carcinoma, Ozzy histologic grade 2 (3+2+1 equal 6). 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 Estrogen receptor +95%, progesterone receptor -0%, HER-2/ortiz was equivocal by IHC but negative by FISH. She was referred to Dr. Gonzalez for left breast lumpectomy with sentinel lymph node biopsy. 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 Lateral margin was positive focally for invasive carcinoma however this was skin margin therefore reexcision is not indicated. Pathologic stage pT2 (sn)pN0 Mx. She has been sent here to evaluate for adjuvant therapy. She tolerated surgery well and has minimal pain at site of surgery. We discussed utilization of Oncotype DX due to estrogen receptor positive, HER-2 negative, lymph node negative breast cancer to determine if she is a candidate for chemotherapy for high risk disease or whether she should proceed to radiation therapy. I would also like to defer her follow-up until she is seen by ENT for abnormal uptake in the tonsil. I believe her changes in the lung maybe followed, although I will try to contact Dr. Patel and see if he recommends biopsy prior to receiving systemic therapy. She will follow-up with me in about3 weeks to review results of Oncotype DX and to determine further plan of therapy. 1. T2 N0 MX (2.4 cm, 4 lymph nodes negative) left breast cancer found incidentally on PET/CT. Pathology invasive lobular carcinoma, ER 95%, IA 0%, HER-2 nonamplified by FISH. 2. History of ST elevation myocardial infarction August 2021 with placement of stents in the mid and distal RCA with aspiration thrombectomy of PDA branch 3. Indeterminate pulmonary nodules in the lung bases, increased FDG avidity of left lung base nodule SUV 5. Repeat PET/CT ordered 02/02/2022 which will be followed up with Dr. Murry 4. Indeterminate right tonsillar pillar uptake, completed ENT evaluation reported as no concerning findings for malignancy. - Summary of Therapies Summary of Therapies: 1.) 12/28/2021: left breast lumpectomy with sentinel lymph node biopsy 2.) Oncotype DX which returned low risk, recurrence score 19. 3.) Completed adjuvant radiotherapy from 02/14/2022-03/10/2022: Left breast 4005 cGy 15 fractions over 18 elapsed days 02/14-03/04/2022, then 1000 cGy boost 4 fractions over 3 elapsed days 4.) Commenced adjuvant endocrine therapy with anastrozole 1 mg p.o. daily on 03/11/2022 -- discontinued on her own in December 2022 due to increased arthralgias/myalgias - she did not notify us of this until today's visit 5.) Changed to Letrozole 2.5 mg PO once daily at appointment today - 04/20/2023 Pulmonary nodules - followed by Dr. Latif with serial imaging -most recent CT scan was reported in about August 2022 with regression of prior nodules, favorbenign ROS Details: All systems reviewed & no additional complaints except as documented Subjective/ROS - Narrative: CONSTITUTIONAL: Negative for fatigue, negative for fever or night sweats. HEAD AND NECK: Negative for changes in hearing and vision. Negative for mouth ulcers, nasal congestion and nasal drainage. PULMONARY: Negative for chest pain, cough and dyspnea. CARDIOVASCULAR: Negative for claudication and irregular heartbeat/palpitations. GASTROINTESTINAL: Negative for abdominal pain, constipation, decreased appetite,diarrhea, nausea or vomiting. GENITOURINARY: Negative for dysuria and hematuria. ENDOCRINE: Negative for cold intolerance and heat intolerance. Breasts with mild hyperpigmentation in prior left breast radiation field, no masses CENTRAL NERVOUS SYSTEM: Negative for gait disturbance and headache. PSYCHIATRIC: Negative for anxiety or depression. DERMATOLOGICAL: Negative for pruritus and positive for inframammary rash. Negative for suspicious skin lesions. MUSCULOSKELETAL: Negative for back pain and positive joint pain (knees/shoulders- known RA) HEMATOLOGICAL: Negative for bleeding and easy bruising. Negative for history of transfusion or thromboembolic disease ALLERGY: Negative for environmental allergies and food allergies. [facility] - Medical History Medical History: Medical History (Last Reviewed 10/13/22 @ 09:04 by Floresita Gonzalez MD) Breast cancer, left CAD (coronary artery disease) Diabetes type [address] of [address] elevation myocardial infarction (STEMI) 08/2021 HTN (hypertension) Hypothyroid Ischemic cardiomyopathy Mixed hyperlipidemia Psoriasis Pulmonary nodule Rheumatoid arthritis - Surgical History Surgical History: Surgical History (Last Reviewed 10/13/22 @ 09:04 by Floresita Gonzalez MD) History of open reduction and internal fixation (ORIF) procedure left ankle Hx of arthroscopic knee surgery bilateral Stented coronary artery x 2 (08/23/21) - Family History Family History: Family History (Last Reviewed 10/13/22 @ 09:04 by Floresita Gonzalez MD) Brother Stroke Mother History of heart surgery Father Accidental Brother CAD (coronary artery disease) Sister CAD (coronary artery disease) - Social History Smoking Status: Never smoker Substance Use Type: None Substance Abuse Comment: marijuana edible approx 2 wks ago for nausea, one time only & from dispensa Social History Comments: grandson - age 21 Home Medications & Allergies Allergies No Known Allergies Allergy (Verified 04/20/23 11:22) Home Medications leflunomide 20 mg tablet 20 mg PO DAILY RA 08/23/21 [History Confirmed 04/20/23] levothyroxine 112 mcg tablet (Synthroid) 112 mcg PO DAILY hypothyroidism 08/23/21 [History Confirmed 04/20/23] oxycodone-acetaminophen 5 mg-325 mg tablet (Percocet) 1 tab PO TID PRN Pain 08/23/21 [History Confirmed 04/20/23] insulin aspar prot-insulin aspart 100 unit/mL (70-30) subcutaneous pen (Novolog Mix 70-30FlexPen U-100) 15 unit subcut QPM diabetes 08/26/21 [History Confirmed 04/20/23] insulin aspar prot-insulin aspart 100 unit/mL (70-30) subcutaneous pen (Novolog Mix 70-30FlexPen U-100) 34 unit subcut QAM diabetes 08/26/21 [History Confirmed 04/20/23] nitroglycerin 0.4 mg sublingual tablet 0.4 mg sublingual Q5MIN.X3 PRN Chest Pain30 days #25 tabs 08/27/21 [Rx Confirmed 04/20/23] aspirin 81 mg tablet,delayed release 81 mg PO DAILY STEMI 12/14/21 [History Confirmed 04/20/23] atorvastatin 40 mg tablet 80 mg PO QHS hyperlipidemia 12/14/21 [History Confirmed 04/20/23] carvedilol 12.5 mg tablet 12.5 mg PO BID heart 12/14/21 [History Confirmed 04/20/23] clopidogrel 75 mg tablet 75 mg PO QAM anticoagulation 12/14/21 [History Confirmed 04/20/23] hydroxychloroquine 200 mg tablet 200 mg PO QAM RA 12/14/21 [History Confirmed 04/20/23] sacubitril 49 mg-valsartan 51 mg tablet (Entresto) 1 tab PO BID heart 12/14/21 [History Confirmed 04/20/23] ibuprofen 600 mg tablet 600 mg PO Q4-6H PRN pain 10 days #20 tabs 12/28/21 [Rx Confirmed 04/20/23] insulin degludec 100 unit/mL (3 mL) subcutaneous pen (Tresiba FlexTouch U-100 insulin) 60 unit subcut DAILY 01/10/22 [History Confirmed 04/20/23] spironolactone 25 mg tablet 25 mg PO DAILY 01/10/22 [History Confirmed 04/20/23] mometasone 0.1 % topical cream 1 applic topical DAILY #45 grams 02/02/22 [Rx Confirmed 04/20/23] nystatin 100,000 unit/gram topical powder (Nystop) 1 applic topical BID #1 g 10/13/22 [Rx Confirmed 04/20/23] letrozole 2.5 mg tablet 2.5 mg PO DAILY #30 tabs 04/20/23 [Rx] methylprednisolone 4 mg tablets in a dose pack (Medrol (Hussian)) 4 mg PO DAILY #1 packet 07/24/23 [Rx] Objective - Height/Weight Height/Weight: Height 5 ft 5 in Weight 110.813 kg - Pain Generalized Pain Intensity: 7 Physical Exam Narrative: 07/24/2023: DEFERRED - telephone exam CONSTITUTIONAL: The patient is in no acute distress. HEENT: Oral mucosa is pink/moist; no lesions or exudate. BREAST EXAM: Right breast no masses or skin changes. Healed left upper outer quadrant breast incision, mild hyperpigmentation over left breast radiation field. No masses. Bilateral inferior mammary fold scaling maculopapular rash consistent with candidiasis. No axillary fullness or tenderness noted. LYMPHATIC: No palpable cervical, supraclavicular, axillary, or inguinal adenopathy. RESPIRATORY: Normal to inspection. Lungs clear to auscultation and percussion. No wheezing, rales, rhonchi or rubs. Normal effort. CARDIOVASCULAR: Regular rate and rhythm. No murmurs, gallops, or rubs. VASCULAR: Carotid, radial, femoral and pedal pulses present bilaterally. No bruits. ABDOMEN: Bowel sounds normoactive. Soft, nontender and non-distended. No hepatosplenomegaly. No masses. GENITOURINARY: No CVA tenderness. INTEGUMENTARY: The skin is remarkable for bilateral inframammary mass. No axillary changes concerning for active hidradenitis suppurativa. No suspicious lesions. BACK / SPINE: The back is nontender. MUSCULOSKELETAL: Normal musculature, no joint deformities or abnormalities, normal range of motion for all four extremities. EXTREMITIES: No edema, cyanosis or clubbing. No Ariana sign. NEUROLOGICAL: Alert and oriented. Cranial nerves intact. No gross motor or sensory deficits. PSYCHIATRIC: No anxiety or evidence of depression. Assessment and Plan - TNM Staging Staging: T2 N0 MX (2.4 cm, 4 lymph nodes negative) left breast cancer found incidentally on PET/CT. Pathology invasive lobular carcinoma, ER 95%, IA 0%, HER-2 nonamplified by FISH. Oncotype DX returned low risk recurrence score 19 (1) Malignant neoplasm of upper-outer quadrant of left breast in female, estrogen receptor positive This is a 66-year-old lady with recent diagnosis of left upper outer quadrant invasive lobular carcinoma right breast, T2N0 after lumpectomy on 12/28/2021. Estrogen receptor 95%, progesterone receptor 0, HER-2/ortiz 0 by FISH. We discussed her pathology results and arranged Oncotype DX testing of her lumpectomy specimen. She has nodular lesions of the lungs which have been evaluated with pulmonary medicine and cardiothoracic surgery earlier this year prompting PET/CT which resulted in the diagnosis of her breast cancer. I contacted Dr. Patel of CT surgery to discuss further evaluation of these pulmonary nodules which may be inflammatory. It may be helpful to repeat her PET/CT to see if there is any progression of these areas suggesting more inflammatory process. She also has abnormalities of the right palatine tonsils on PET/CT and is being evaluated with ENT for nasopharyngoscopy in about 2 weeks. She also has a recent diagnosis of ST elevation myocardial infarction which may impact her suitability for further therapy based on her risk score (likely avoiding anthracyclines if higher risk). 02/02/2022: Follow-up to review Oncotype DX score 19, low risk recurrence score. Increased FDG avidity on PET/CT evaluated with nasopharyngoscopy which returned negative for malignancy. I contacted Dr. Patel to discuss follow-up PET/CT to determine status of her pulmonary nodules and whether biopsy is recommended prior to planned adjuvant radiation therapy. She will follow-up with CT surgery within 1 week of her PET/CT to determine whether she can proceed with radiation oncology. We also discussed her prior DEXA scan from January 2021 showing osteopenia which she will take calcium and vitamin D. She can proceed with anastrozole therapy 1 mg daily after she completes adjuvant radiation and will follow-up with me 1 month thereafter. 04/04/2022: Chucky is here for 1 month follow-up post initiation of adjuvant endocrine therapy with anastrozole 1 mg p.o. daily. She completed her course of adjuvant radiation on 03/10/2022; and commenced anastrozole on 03/11/2022. The patient denies any significant or untoward side effects related to endocrine therapy thus far. She specifically denies any issues with headaches, increased blood pressure, chest pain, shortness of breath, myalgias/arthralgias, or hot flashes. She notes no significant changes on self breast exam. She is due to see radiation oncology today for 1 month skin check following completion of radiation. She continues to follow with Dr. Gonzalez every 3 months and is due to see him next week. --Will fill anastrozole 1 mg p.o. daily with 90-day supply. Will alternate visits with surgery (she sees Dr. Gonzalez every 3 months); will see her in 6 months; sooner if new issues arise. Next mammogram due in Fall 2021. Next DEXA scan due February 2023. 10/13/2022: He is here for 6-month follow-up (also following every 3 to [address] Gonzalez). No evidence of recurrence on breast exam. She is tolerating anastrozole 1 mg daily without significant myalgias or hot flashes. Her 1 year follow-up mammogram may be ordered by Dr. Gonzalez when she sees him next week. We will continue to follow every 6 months--she will be due for her next DEXA prior to follow-up in 6 months. Pulmonary nodules as noted below are favored to be rheumatoid and Dr. Latif has personally contacted me regarding ongoing follow-up of these nodules. We are requesting her outside [place] CT for our records. 04/20/2023: Chucky is here for interval 6 moth follow up; completed radiation therapy in February 2022. She was started on anastrazole at that time; but since her last follow up appointment 6 months ago, has stopped taking anastrazole due to intolerable joint aches/pains and myalgias. She stopped taking this ~ 3 months, but did not notify the clinic. Reportedly, she noted no significant improvement in joint aches/pains, despite stopping anastrazole. She attributes many of her symptoms to underlying rheumatoid arthritis, presently on hydroxychloroquine + leflunomide?managed by Dr. Samayoa of rheumatology. She follows him every 3-4 months and is still seeing Dr. Gonzalez every 3 months; with last exam and follow up ~ 6 weeks ago. Last diagnostic mammogram in November 2022 showed no evidence of recurrence. Had recent DEXA scan in February 2023 that showed a few areas of osteopenia; otherwise normal. She maintains Calcium + Vitamin D3 and is taking oral Fosamax 70 mg PO once daily. Denies headaches, fever/chills, recent/recurrent infections, changes on self breast exam, lymphadenopathy, unintentional weight loss or new bony pain. We discussed/reiterated role and importance of adjuvant endocrine therapy. We will change anastrazole to Letrozole 2.5 mg PO once daily. Will arrange for 2 month phone visit to review side effects/assess tolerance of Letrozole. - based on most recent mammography, physical exam, ROS - there is no evidence to suggest cancer recurrence. - next mammogram due: November 2023 - these are typically ordered by surgery - Dr. Gonzalez. - follow up in person with exam; Dr. Gonzalez in 6 months. 07/24/2023: Chucky is contacted via telephone to review symptoms regarding change of AI therapy from anastrozole to letrozole. She reports that she is doing okay; has been taking letrozole for closer to 3 months now and notes significant change in arthralgias/myalgias or joint symptoms with restarting AI therapy. She has not followed up with Dr. Haladay in ~ 6 months; and reports current RA medications are not working well. She has had several RA flares and is requesting a short course of prednisone to hold her over until she can be seen by her PCP on 07/31/2023. Otherwise, denies breast changes or concerns. o She is is scheduled for in person exam/follow up in September 2023. o next mammogram due: November 2023 o continue Letrozole 2.5 mg PO once daily. (2) Pulmonary nodules/lesions, multiple (3) ST elevation (STEMI) myocardial infarction (4) Osteopenia (5) Rheumatoid arthritis Chronic joint pain with recent, more frequent flares that she believes are from her RA and not her her AI therapy. - she has not followed up with rheumatology in several months - she has appt with PCP on 07/31/2023 to discuss pain and possible referral to another director meetings - in the interim; I will give her a 1 time dose of Medrol dose pack until she is seen by her PCP in 7 days (6) Skin candidiasis (7) Use of aromatase inhibitors Commenced adjuvant endocrine therapy with anastrozole 1 mg p.o. daily?started 03/11/2022. Plan 5 to 7 years. Stopped taking this on her own ~ 3 months ago; but did not notify the clinic until today. She noted significant worsening of arthralgias/myalgias and looked online - saw that Anastrazole could cause these side effects. She has not noted any significant difference or improvement of pain despite being off anastrazole x 3 months. We will trial Letrozole 2.5 mg PO once daily starting today. PHONE visit follow up in 2 months to assess symptoms/tolerability. 07/24/2023: Follow up phone exam; patient reports persistent RA related pain, but does not feel that this is related to her current AI therapy with letrozole. She is okay to continue Letrozole and will follow up with both rheumatology and PCP regarding recent, poor control and flare ups of RA. - Chemo Plan Chemo Plan (Dose, Rate, Freq): Anastrozole 1 mg daily started February 2022. Continue for 5 to 7-year course. Goal of Treatment: Curative - Time with Patient Time Spent with Patient (Follow Up Visit): Less than 20 minutes Coordination of Care & Counseling Time: Greater than 50% of time spent with patient was for coordination of care (as documented) and [id number] counseling of patient and/or family. Dictated By: Lizzie Galeas APRN DD/ [id number] Signed By: <Electronically signed by DAY Galeas> 07/25/23 1423 [facility] Work Phone: [phone]) 976-702707-06-2023 Progress note Author Lizzie Galeas [facility] April 20, 2023 1:09pm Note Date/Time April 20, 2023 12:27 pm [facility] [place] [address] Hem/Onc Follow Up Note - OP Signed Patient: Chucky Dunlap MR#: [id number] : 1955 Acct:[id number] Age/Sex: 67 / F Type: REG RCR Copies to: DO Salty James DO~ Subjective Date/Time of Service: Date of Service: 04/20/2023 Time of Service: 12:26 Chief Complaint: Patient is here for a 6 month follow up. Had a dexa scan in February. Patient states that she is not taking Anastrozole due to it causing her toomuch pain. HPI: 04/20/2023: Chucky is here for interval 6 moth follow up; completed radiation therapy in February 2022. She was started on anastrazole at that time; but since her last follow up appointment 6 months ago, has stopped taking anastrazole due to intolerable joint aches/pains and myalgias. She stopped taking this ~ 3 months, but did not notify the clinic. Reportedly, she noted no significant improvement in joint aches/pains, despite stopping anastrazole. She attributes many of her symptoms to underlying rheumatoid arthritis, presently on hydroxychloroquine + leflunomide?managed by Dr. Samayoa of rheumatology. She follows him every 3-4 months and is still seeing Dr. Gonzalez every 3 months; with last exam and follow up ~ 6 weeks ago. Last diagnostic mammogram in November 2022 showed no evidence of recurrence. Had recent DEXA scan in February 2023 that showed a few areasof osteopenia; otherwise normal. She maintains Calcium + Vitamin D3 and is taking oral Fosamax 70 mg PO once daily. Denies headaches, fever/chills, recent/recurrent infections, changes on self breast exam, lymphadenopathy, unintentional weight loss or new bony pain. 10/13/2022: W transferred her care from Dr. Patel to Dr. Latif of pulmonary medicine at [place]. Her most recent follow-up with him after CT of the chest showed regression of prior pulmonary nodules. These are felt to be due to rheumatoid nodules. She will continue follow-up with him as directed. She remains on the same regimen for rheumatoid arthritis with Dr. Samayoa who she saw about 6 weeks ago. Otherwise she continues to tolerate endocrine therapy well with anastrozole 1 mg daily. She denies any hot flashes, myalgias, dyspepsia, or rashes. No significant pain or skin changes over prior radiation site. She does have history of hidradenitis suppurativa and has a moist skin rash in her inframammary folds and we will add Nystop topical powder to her topical steroid. Next follow-up with me in 6 months or sooner as needed. She will have 1 year follow-up mammogram ordered by Dr. Gonzalez when she sees him next week and will continue to follow with him every 3 to 4 months. 04/04/2022: Chucky is here for 1 month toxicity visit following initiation of adjuvant endocrine therapy with anastrozole. She denies any untoward side effects related to endocrine therapy, namely hot flashes, myalgias or arthralgias. She is mildly fatigued since completing radiation on 03/10/2022, but overall is doing well. She notes that she had subsequent follow-up with following PET/CT scan for pleural nodules that had increased FDG activity. The patient reports that she was going to undergo biopsy, however, the nodules appear to have decreased in size and biopsy was aborted. Dr. Das since coordinated longitudinal follow-up with Dr. Latif (pulmonology) to follow-up with serial CT scan. She denies any significant pain or changes in breast self exam. She follows closely with Dr. Gonzalez (will see next week) and will see radiation oncology today for 1 month skin recheck/follow up. 02/02/2022: Radha is here for follow-up of cancer type ID testing. This returned at low risk with recurrence score 19, 6% risk of distant recurrence at 9 years and less than 1% chemotherapy benefit. She underwent evaluation by Dr. Whiteside due to uptake within the right palatine tonsils on PET/CT, but no lesionswere seen and he has not requested any further follow-up. She has not had any follow-up with Dr. Patel for evaluation of pleural nodules that had increased FDG avidity. I contacted Dr. Patel today and we scheduled a subsequent PET/CT within the next week to determine if there was any interval change in size or FDG avidity of her pulmonary nodules and whether biopsy would proceed prior to planned adjuvant radiation therapy. She will have subsequent follow-up with after her PET/CT I will then coordinate when she may proceed to her radiation therapy. -- Since she is not a candidate for chemotherapy, we did discuss initiation of hormonal therapy with anastrozole 1 mg daily. This may be initiated following her radiation therapy, and subsequent follow-up with me will be after 1 month ofadjuvant anastrozole. We will coordinate her medical oncology follow-up after we determine the plan for work-up of the pulmonary nodules as noted above. Her most recent DEXA scan was performed February 12, 2021 at [facility] revealing baseline osteopenia/decreased bone density. This will be followed every 2 years while on aromatase inhibitor therapy. We also discussed other potential adverse effects of therapy including hot flashes, myalgias, dyspepsia, and uncommon rashes. PREVIOUS HISTORY: Original consult 01/13/2022 This is a 66-year-old lady with a recent complicated history. She notes that inAugust 2020 she was diagnosed with pneumonia and had persistent chest wall pain therefore was referred for follow-up chest x-ray and subsequent CT. She was found nodules within the left lung base. Dr. Latif at [place] referred her to Dr. Patel of CT surgery for possible biopsy. Prior to this referral she reports having a myocardial infarction in August 2021 with placement of stentsand was placed on antiplatelet therapy, therefore Dr. Patel ordered a PET/CT which showed pleural nodules in the lung bases with increased FDG avidity, most prominently in the left lung base with SUV 5.5. She was also found to have uptake within right palatine tonsils with SUV 4.7 that may be reactive and she is scheduled to see Dr. Whiteside of ENT on 01/27/2022. A third finding was subtle increased FDG uptake in the left breast with SUV 3.0. Patient had no personal or family history of breast cancer and had no mammography for the last 20 years therefore she was sent for mammogram and ultrasound. She did not have any palpable masses, pain, or skin changes of the left breast. Left breast ultrasound on 11/04/2021 showed a 2.2 x 1.6 x 1.5 cm lesion taller more than wide at the 1 to 2 o'clock position 5 cm from the nipple. This correlated to 1.7 cm focal asymmetry on diagnostic mammography. Core needle biopsy was performed 11/24/2021 revealing invasive lobular carcinoma, Luckey histologic grade 2 (3+2+1 equal 6). 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 Estrogen receptor +95%, progesterone receptor -0%, HER-2/ortiz was equivocal by IHC but negative by FISH. She was referred to Dr. Gonzalez for left breast lumpectomy with sentinel lymphnode biopsy. 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 Lateral margin was positive focally for invasive carcinoma however this was skin margin therefore reexcision is not indicated. Pathologic stage pT2 (sn)pN0 Mx. She has been sent here to evaluate for adjuvant therapy. She tolerated surgery well and has minimal pain at site of surgery. We discussed utilization of Oncotype DX due to estrogen receptor positive, HER-2 negative, lymph node negative breast cancer to determine if she is a candidate for chemotherapy for high risk disease or whether she should proceed to radiation therapy. I would also like to defer her follow-up until she is seen by ENT for abnormal uptake in the tonsil. I believe her changes in the lung maybe followed, although I will try to contact Dr. Patel and see if he recommends biopsy prior to receiving systemic therapy. She will follow-up with me in about3 weeks to review results of Oncotype DX and to determine further plan of therapy. 1. T2 N0 MX (2.4 cm, 4 lymph nodes negative) left breast cancer found incidentally on PET/CT. Pathology invasive lobular carcinoma, ER 95%, IA 0%, HER-2 nonamplified by FISH. 2. History of ST elevation myocardial infarction August 2021 with placement of stents in the mid and distal RCA with aspiration thrombectomy of PDA branch 3. Indeterminate pulmonary nodules in the lung bases, increased FDG avidity of left lung base nodule SUV 5. Repeat PET/CT ordered 02/02/2022 which will be followed up with Dr. Murry 4. Indeterminate right tonsillar pillar uptake, completed ENT evaluation reported as no concerning findings for malignancy. - Summary of Therapies Summary of Therapies: 1.) 12/28/2021: left breast lumpectomy with sentinel lymph node biopsy 2.) Oncotype DX which returned low risk, recurrence score 19. 3.) Completed adjuvant radiotherapy from 02/14/2022-03/10/2022: Left breast 4005 cGy 15 fractions over 18 elapsed days 02/14-03/04/2022, then 1000 cGy boost 4 fractions over 3 elapsed days 4.) Commenced adjuvant endocrine therapy with anastrozole 1 mg p.o. daily on 03/11/2022 -- discontinued on her own in December 2022 due to increased arthralgias/myalgias - she did not notify us of this until today's visit 5.) Changed to Letrozole 2.5 mg PO once daily at appointment today - 04/20/2023 Pulmonary nodules - followed by Dr. Latif with serial imaging -most recent CT scan was reported in about August 2022 with regression of prior nodules, favorbenign ROS Details: All systems reviewed & no additional complaints except as documented Subjective/ROS - Narrative: CONSTITUTIONAL: Negative for fatigue, negative for fever or night sweats. HEAD AND NECK: Negative for changes in hearing and vision. Negative for mouth ulcers, nasal congestion and nasal drainage. PULMONARY: Negative for chest pain, cough and dyspnea. CARDIOVASCULAR: Negative for claudication and irregular heartbeat/palpitations. GASTROINTESTINAL: Negative for abdominal pain, constipation, decreased appetite,diarrhea, nausea or vomiting. GENITOURINARY: Negative for dysuria and hematuria. ENDOCRINE: Negative for cold intolerance and heat intolerance. Breasts with mild hyperpigmentation in prior left breast radiation field, no masses CENTRAL NERVOUS SYSTEM: Negative for gait disturbance and headache. PSYCHIATRIC: Negative for anxiety or depression. DERMATOLOGICAL: Negative for pruritus and positive for inframammary rash. Negative for suspicious skin lesions. MUSCULOSKELETAL: Negative for back pain and positive joint pain (knees/shoulders- known RA) HEMATOLOGICAL: Negative for bleeding and easy bruising. Negative for history of transfusion or thromboembolic disease ALLERGY: Negative for environmental allergies and food allergies. [facility] - Medical History Medical History: Medical History (Last Reviewed 10/13/22 @ 09:04 by Floresita Gonzalez MD) Breast cancer, left CAD (coronary artery disease) Diabetes type [address] of [address] elevation myocardial infarction (STEMI) 08/2021 HTN (hypertension) Hypothyroid Ischemic cardiomyopathy Mixed hyperlipidemia Psoriasis Pulmonary nodule Rheumatoid arthritis - Surgical History Surgical History: Surgical History (Last Reviewed 10/13/22 @ 09:04 by Floresita Gonzalez MD) History of open reduction and internal fixation (ORIF) procedure left ankle Hx of arthroscopic knee surgery bilateral Stented coronary artery x 2 (08/23/21) - Family History Family History: Family History (Last Reviewed 10/13/22 @ 09:04 by Floresita Gonzalez MD) Brother Stroke Mother History of heart surgery Father Accidental Brother CAD (coronary artery disease) Sister CAD (coronary artery disease) - Social History Smoking Status: Never smoker Substance Use Type: None Substance Abuse Comment: marijuana edible approx 2 wks ago for nausea, one time only & from dispensa Social History Comments: grandson - age 21 Home Medications & Allergies Allergies No Known Allergies Allergy (Verified 04/20/23 11:22) Home Medications leflunomide 20 mg tablet 20 mg PO DAILY RA 08/23/21 [History Confirmed 04/20/23] levothyroxine 112 mcg tablet (Synthroid) 112 mcg PO DAILY hypothyroidism 08/23/21 [History Confirmed 04/20/23] oxycodone-acetaminophen 5 mg-325 mg tablet (Percocet) 1 tab PO TID PRN Pain 08/23/21 [History Confirmed 04/20/23] insulin aspar prot-insulin aspart 100 unit/mL (70-30) subcutaneous pen (Novolog Mix 70-30FlexPen U-100) 15 unit subcut QPM diabetes 08/26/21 [History Confirmed 04/20/23] insulin aspar prot-insulin aspart 100 unit/mL (70-30) subcutaneous pen (Novolog Mix 70-30FlexPen U-100) 34 unit subcut QAM diabetes 08/26/21 [History Confirmed 04/20/23] nitroglycerin 0.4 mg sublingual tablet 0.4 mg sublingual Q5MIN.X3 PRN Chest Pain30 days #25 tabs 08/27/21 [Rx Confirmed 04/20/23] aspirin 81 mg tablet,delayed release 81 mg PO DAILY STEMI 12/14/21 [History Confirmed 04/20/23] atorvastatin 40 mg tablet 80 mg PO QHS hyperlipidemia 12/14/21 [History Confirmed 04/20/23] carvedilol 12.5 mg tablet 12.5 mg PO BID heart 12/14/21 [History Confirmed 04/20/23] clopidogrel 75 mg tablet 75 mg PO QAM anticoagulation 12/14/21 [History Confirmed 04/20/23] hydroxychloroquine 200 mg tablet 200 mg PO QAM RA 12/14/21 [History Confirmed 04/20/23] prednisone 5 mg tablet 5 mg PO DAILY PRN Pain 12/14/21 [History Confirmed 04/20/23] sacubitril 49 mg-valsartan 51 mg tablet (Entresto) 1 tab PO BID heart 12/14/21 [History Confirmed 04/20/23] ibuprofen 600 mg tablet 600 mg PO Q4-6H PRN pain 10 days #20 tabs 12/28/21 [Rx Confirmed 04/20/23] insulin degludec 100 unit/mL (3 mL) subcutaneous pen (Tresiba FlexTouch U-100 insulin) 60 unit subcut DAILY 01/10/22 [History Confirmed 04/20/23] spironolactone 25 mg tablet 25 mg PO DAILY 01/10/22 [History Confirmed 04/20/23] mometasone 0.1 % topical cream 1 applic topical DAILY #45 grams 02/02/22 [Rx Confirmed 04/20/23] anastrozole 1 mg tablet 1 mg PO DAILY 90 days #90 tabs 04/04/22 [Rx Confirmed 04/20/23] nystatin 100,000 unit/gram topical powder (Nystop) 1 applic topical BID #1 g 10/13/22 [Rx Confirmed 04/20/23] letrozole 2.5 mg tablet 2.5 mg PO DAILY #30 tabs 04/20/23 [Rx] Objective - Resuscitation Status Resuscitation Status: Full Code - Height/Weight Height/Weight: Height 5 ft 5 in Weight 110.813 kg - Vital Signs Vital Signs: 04/20/23 11:22 Temperature 98.4 F Pulse Rate [Left Brachial] 86 Respiratory Rate 20 Blood Pressure [Left Arm] 180/81 H 02 Sat by Pulse Oximetry 97 Oxygen Delivery Method Room Air - Pain Generalized Pain Intensity: 7 Physical Exam Narrative: CONSTITUTIONAL: The patient is in no acute distress. HEENT: Oral mucosa is pink/moist; no lesions or exudate. BREAST EXAM: Right breast no masses or skin changes. Healed left upper outer quadrant breast incision, mild hyperpigmentation over left breast radiation field. No masses. Bilateral inferior mammary fold scaling maculopapular rash consistent with candidiasis. No axillary fullness or tenderness noted. LYMPHATIC: No palpable cervical, supraclavicular, axillary, or inguinal adenopathy. RESPIRATORY: Normal to inspection. Lungs clear to auscultation and percussion. No wheezing, rales, rhonchi or rubs. Normal effort. CARDIOVASCULAR: Regular rate and rhythm. No murmurs, gallops, or rubs. VASCULAR: Carotid, radial, femoral and pedal pulses present bilaterally. No bruits. ABDOMEN: Bowel sounds normoactive. Soft, nontender and non-distended. No hepatosplenomegaly. No masses. GENITOURINARY: No CVA tenderness. INTEGUMENTARY: The skin is remarkable for bilateral inframammary mass. No axillary changes concerning for active hidradenitis suppurativa. No suspicious lesions. BACK / SPINE: The back is nontender. MUSCULOSKELETAL: Normal musculature, no joint deformities or abnormalities, normal range of motion for all four extremities. EXTREMITIES: No edema, cyanosis or clubbing. No Ariana sign. NEUROLOGICAL: Alert and oriented. Cranial nerves intact. No gross motor or sensory deficits. PSYCHIATRIC: No anxiety or evidence of depression. - ECOG Performance Status ECOG Score: 0 Assessment and Plan - TNM Staging Staging: T2 N0 MX (2.4 cm, 4 lymph nodes negative) left breast cancer found incidentally on PET/CT. Pathology invasive lobular carcinoma, ER 95%, IA 0%, HER-2 nonamplified by FISH. Oncotype DX returned low risk recurrence score 19 (1) Malignant neoplasm of upper-outer quadrant of left breast in female, estrogen receptor positive This is a 66-year-old lady with recent diagnosis of left upper outer quadrant invasive lobular carcinoma right breast, T2N0 after lumpectomy on 12/28/2021. Estrogen receptor 95%, progesterone receptor 0, HER-2/ortiz 0 by FISH. We discussed her pathology results and arranged Oncotype DX testing of her lumpectomy specimen. She has nodular lesions of the lungs which have been evaluated with pulmonary medicine and cardiothoracic surgery earlier this year prompting PET/CT which resulted in the diagnosis of her breast cancer. I contacted Dr. Patel of CT surgery to discuss further evaluation of these pulmonary nodules which may be inflammatory. It may be helpful to repeat her PET/CT to see if there is any progression of these areas suggesting more inflammatory process. She also has abnormalities of the right palatine tonsils on PET/CT and is being evaluated with ENT for nasopharyngoscopy in about 2 weeks. She also has a recent diagnosis of ST elevation myocardial infarction which may impact her suitability for further therapy based on her risk score (likely avoiding anthracyclines if higher risk). 02/02/2022: Follow-up to review Oncotype DX score 19, low risk recurrence score. Increased FDG avidity on PET/CT evaluated with nasopharyngoscopy which returned negative for malignancy. I contacted Dr. Patel to discuss follow-up PET/CT to determine status of her pulmonary nodules and whether biopsy is recommended prior to planned adjuvant radiation therapy. She will follow-up with CT surgerywithin 1 week of her PET/CT to determine whether she can proceed with radiation oncology. We also discussed her prior DEXA scan from January 2021 showing osteopenia which she will take calcium and vitamin D. She can proceed with anastrozole therapy 1 mg daily after she completes adjuvant radiation and will follow-up with me 1 month thereafter. 04/04/2022: Chucky is here for 1 month follow-up post initiation of adjuvant endocrine therapy with anastrozole 1 mg p.o. daily. She completed her course ofadjuvant radiation on 03/10/2022; and commenced anastrozole on 03/11/2022. The patient denies any significant or untoward side effects related to endocrine therapy thus far. She specifically denies any issues with headaches, increased blood pressure, chest pain, shortness of breath, myalgias/arthralgias, or hot flashes. She notes no significant changes on self breast exam. She is due to see radiation oncology today for 1 month skin check following completion of radiation. She continues to follow with Dr. Gonzalez every 3 months and is dueto see him next week. --Will fill anastrozole 1 mg p.o. daily with 90-day supply. Will alternate visits with surgery (she sees Dr. Gonzalez every 3 months); will see her in 6 months; sooner if new issues arise. Next mammogram due in Fall 2021. Next DEXA scan due February 2023. 10/13/2022: He is here for 6-month follow-up (also following every [address] Gonzalez). No evidence of recurrence on breast exam. She is tolerating anastrozole 1 mg daily without significant myalgias or hot flashes. Her 1 year follow-up mammogram may be ordered by Dr. Gonzalez when she sees himnext week. We will continue to follow every 6 months--she will be due for her next DEXA prior to follow-up in 6 months. Pulmonary nodules as noted below are favored to be rheumatoid and Dr. Latif has personally contacted me regarding ongoing follow-up of these nodules. We are requesting her outside [place] [facility] for our records. 04/20/2023: Chucky is here for interval 6 moth follow up; completed radiation therapy in February 2022. She was started on anastrazole at that time; but since her last follow up appointment 6 months ago, has stopped taking anastrazole due to intolerable joint aches/pains and myalgias. She stopped taking this ~ 3 months, but did not notify the clinic. Reportedly, she noted no significant improvement in joint aches/pains, despite stopping anastrazole. She attributes many of her symptoms to underlying rheumatoid arthritis, presently on hydroxychloroquine + leflunomide?managed by Dr. Samayoa of rheumatology. She follows him every 3-4 months and is still seeing Dr. Gonzalez every 3 months; with last exam and follow up ~ 6 weeks ago. Last diagnostic mammogram in November 2022 showed no evidence of recurrence. Had recent DEXA scan in February 2023 that showed a few areasof osteopenia; otherwise normal. She maintains Calcium + Vitamin D3 and is taking oral Fosamax 70 mg PO once daily. Denies headaches, fever/chills, recent/recurrent infections, changes on self breast exam, lymphadenopathy, unintentional weight loss or new bony pain. We discussed/reiterated role and importance of adjuvant endocrine therapy. We will change anastrazole to Letrozole 2.5 mg PO once daily. Will arrange for 2 month phone visit to review side effects/assess tolerance of Letrozole. - based on most recent mammography, physical exam, ROS - there is no evidence tosuggest cancer recurrence. - next mammogram due: November 2023 - these are typically ordered by surgery - Dr. Gonzalez. - follow up in person with exam; Dr. Gonzalez in 6 months. (2) Pulmonary nodules/lesions, multiple Bibasilar pulmonary nodules on PET/CT September 2021. - Repeat PET/CT done in January 2022; which showed increase in size. She has sinceseen both Dr. Patel and Dr. Latif. - She saw Dr. Latif on 03/21/2022 and most recent repeat CT scan showed decrease in size; therefore, biopsy was deferred. - Dr. Latif contacted me last month and noted that he feels these are more likely benign rheumatoid nodules and he will continue to follow with serial imaging at [facility]. Last CT scan at [facility] - August2022. (3) ST elevation (STEMI) myocardial infarction The patient had ST elevation HI with left heart catheterization August 2021 showing inferior STEMI. She had placement of distal RCA stent and mid RCA stentwith aspiration thrombectomy of the PDA branch. Continue follow-up with cardiology. (4) Osteopenia Baseline osteopenia noted on DEXA scan 03/14/2021. In February 2022 after completing radiation she started anastrozole 1 mg daily but should continue calcium with supplemental vitamin D twice daily. Repeat DEXA scan due in February 2023- showed persistent, but stable osteopenia. She is compliant with Calcium + Vitamin D3; rheumatology has started her on Fosamax 70 mg PO once weekly. This will be added to her current medication list. Recheck DEXA scan in February 2025 (5) Rheumatoid arthritis Chronic joint pain which is stable. No recent flare. Followed by Dr. Samayoa last seen about 6 weeks ago. (6) Skin candidiasis Chronic oral prednisone for RA with evidence of inframammary candidiasis. Treating with Nystop powder twice daily as needed to minimize infection. No issues (7) Use of aromatase inhibitors Commenced adjuvant endocrine therapy with anastrozole 1 mg p.o. daily?started 03/11/2022. Plan 5 to 7 years. Stopped taking this on her own ~ 3 months ago; but did not notify the clinic until today. She noted significant worsening of arthralgias/myalgias and looked online - saw that Anastrazole could cause these side effects. She has not noted any significant difference or improvement of pain despite being off anastrazole x 3 months. We will trial Letrozole 2.5 mg PO once daily starting today. PHONE visit follow up in 2 months to assess symptoms/tolerability. - Chemo Plan Chemo Plan (Dose, Rate, Freq): Anastrozole 1 mg daily started February 2022. Continue for 5 to 7-year course. Goal of Treatment: Curative - Time with Patient Time Spent with Patient (Follow Up Visit): 35 minutes - Moderate complexity to review side effects of AI therapy, rheumatoid arthritis, change in AI therapy - review DEXA Coordination of Care & Counseling Time: Greater than 50% of time spent with patient was for coordination of care (as documented) and [id number] counseling of patient and/or family. Dictated By: Lizzie Galeas APRN DD/ [id number] Signed By: <Electronically signed by DAY Galeas> 04/20/23 1309 [facility] Work Phone: [phone] 230-141812-29-2022 Progress note Author Floresita Gonzalez [facility] October 13, 2022 9:14am Note Date/Time October 13, 2022 8:45am [facility] at [address] [address] Hem/Onc Follow Up Note - OP Signed Patient: Chucky Dunlap MR#: [id number] : 1955 Acct:[id number] Age/Sex: 66 / F Type: REG RCR Copies to: DO Salty James, DO Zoe Latif, DO Doroteo Samayoa MD~ Subjective Date/Time of Service: Date of Service: 10/13/2022 Time of Service: 08:45 Chief Complaint: Patient is here today for a 6 month follow up visit for breast cancer HPI: 10/13/2022: W transferred her care from Dr. Patel to Dr. Latif of pulmonary medicine at [place]. Her most recent follow-up with him after CT of the chest showed regression of prior pulmonary nodules. These are felt to be due to rheumatoid nodules. She will continue follow-up with him as directed. She remains on the same regimen for rheumatoid arthritis with Dr. Samayoa who she saw about 6 weeks ago. Otherwise she continues to tolerate endocrine therapy well with anastrozole 1 mg daily. She denies any hot flashes, myalgias, dyspepsia, or rashes. No significant pain or skin changes over prior radiation site. She does have history of hidradenitis suppurativa and has a moist skin rash in her inframammary folds and we will add Nystop topical powder to her topical steroid. Next follow-up with me in 6 months or sooner as needed. She will have 1 year follow-up mammogram ordered by Dr. Gonzalez when she sees him next week and will continue to follow with him every 3 to 4 months. Moderate complexity visit over 30 minutes due to multiple comorbidities. 04/04/2022: Chucky is here for 1 month toxicity visit following initiation of adjuvant endocrine therapy with anastrozole. She denies any untoward side effects related to endocrine therapy, namely hot flashes, myalgias or arthralgias. She is mildly fatigued since completing radiation on 03/10/2022, but overall is doing well. She notes that she had subsequent follow-up with following PET/CT scan for pleural nodules that had increased FDG activity. The patient reports that she was going to undergo biopsy, however, the nodules appear to have decreased in size and biopsy was aborted. Dr. Das since coordinated longitudinal follow-up with Dr. Latif (pulmonology) to follow-up with serial CT scan. She denies any significant pain or changes in breast self exam. She follows closely with Dr. Gonzalez (will see next week) and will see radiation oncology today for 1 month skin recheck/follow up. 02/02/2022: Radha is here for follow-up of cancer type ID testing. This returned at low risk with recurrence score 19, 6% risk of distant recurrence at 9 years and less than 1% chemotherapy benefit. She underwent evaluation by Dr. Whiteside due to uptake within the right palatine tonsils on PET/CT, but no lesionswere seen and he has not requested any further follow-up. She has not had any follow-up with Dr. Patel for evaluation of pleural nodules that had increased FDG avidity. I contacted Dr. Patel today and we scheduled a subsequent PET/CT within the next week to determine if there was any interval change in size or FDG avidity of her pulmonary nodules and whether biopsy would proceed prior to planned adjuvant radiation therapy. She will have subsequent follow-up with after her PET/CT I will then coordinate when she may proceed to her radiation therapy. -- Since she is not a candidate for chemotherapy, we did discuss initiation of hormonal therapy with anastrozole 1 mg daily. This may be initiated following her radiation therapy, and subsequent follow-up with me will be after 1 month ofadjuvant anastrozole. We will coordinate her medical oncology follow-up after we determine the plan for work-up of the pulmonary nodules as noted above. Her most recent DEXA scan was performed February 12, 2021 at [facility] revealing baseline osteopenia/decreased bone density. This will be followed every 2 years while on aromatase inhibitor therapy. We also discussed other potential adverse effects of therapy including hot flashes, myalgias, dyspepsia, and uncommon rashes. PREVIOUS HISTORY: Original consult 01/13/2022 This is a 66-year-old lady with a recent complicated history. She notes that inAugust 2020 she was diagnosed with pneumonia and had persistent chest wall pain therefore was referred for follow-up chest x-ray and subsequent CT. She was found nodules within the left lung base. Dr. Latif at [place] referred her to Dr. Patel of CT surgery for possible biopsy. Prior to this referral she reports having a myocardial infarction in August 2021 with placement of stentsand was placed on antiplatelet therapy, therefore Dr. Patel ordered a PET/CT which showed pleural nodules in the lung bases with increased FDG avidity, most prominently in the left lung base with SUV 5.5. She was also found to have uptake within right palatine tonsils with SUV 4.7 that may be reactive and she is scheduled to see Dr. Whiteside of ENT on 01/27/2022. A third finding was subtle increased FDG uptake in the left breast with SUV 3.0. Patient had no personal or family history of breast cancer and had no mammography for the last 20 years therefore she was sent for mammogram and ultrasound. She did not have any palpable masses, pain, or skin changes of the left breast. Left breast ultrasound on 11/04/2021 showed a 2.2 x 1.6 x 1.5 cm lesion taller more than wide at the 1 to 2 o'clock position 5 cm from the nipple. This correlated to 1.7 cm focal asymmetry on diagnostic mammography. Core needle biopsy was performed 11/24/2021 revealing invasive lobular carcinoma, Ozzy histologic grade 2 (3+2+1 equal 6). 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 Estrogen receptor +95%, progesterone receptor -0%, HER-2/ortiz was equivocal by IHC but negative by FISH. She was referred to Dr. Gonzalez for left breast lumpectomy with sentinel lymph node biopsy. 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 Lateral margin was positive focally for invasive carcinoma however this was skin margin therefore reexcision is not indicated. Pathologic stage pT2 (sn)pN0 Mx. She has been sent here to evaluate for adjuvant therapy. She tolerated surgery well and has minimal pain at site of surgery. We discussed utilization of Oncotype DX due to estrogen receptor positive, HER-2 negative, lymph node negative breast cancer to determine if she is a candidate for chemotherapy for high risk disease or whether she should proceed to radiation therapy. I would also like to defer her follow-up until she is seen by ENT for abnormal uptake in the tonsil. I believe her changes in the lung maybe followed, although I will try to contact Dr. Patel and see if he recommends biopsy prior to receiving systemic therapy. She will follow-up with me in about3 weeks to review results of Oncotype DX and to determine further plan of therapy. 1. T2 N0 MX (2.4 cm, 4 lymph nodes negative) left breast cancer found incidentally on PET/CT. Pathology invasive lobular carcinoma, ER 95%, IA 0%, HER-2 nonamplified by FISH. 2. History of ST elevation myocardial infarction August 2021 with placement of stents in the mid and distal RCA with aspiration thrombectomy of PDA branch 3. Indeterminate pulmonary nodules in the lung bases, increased FDG avidity of left lung base nodule SUV 5. Repeat PET/CT ordered 02/02/2022 which will be followed up with Dr. Murry 4. Indeterminate right tonsillar pillar uptake, completed ENT evaluation reported as no concerning findings for malignancy. - Summary of Therapies Summary of Therapies: 1.) 12/28/2021: left breast lumpectomy with sentinel lymph node biopsy 2.) Oncotype DX which returned low risk, recurrence score 19. 3.) Completed adjuvant radiotherapy from 02/14/2022-03/10/2022: Left breast 4005 cGy 15 fractions over 18 elapsed days 02/14-03/04/2022, then 1000 cGy boost 4 fractions over 3 elapsed days 4.) Commenced adjuvant endocrine therapy with anastrozole 1 mg p.o. daily on 03/11/2022. Pulmonary nodules - followed by Dr. Latif with serial imaging -most recent CT scan was reported in about August 2022 with regression of prior nodules, favorbenign ROS Details: All systems reviewed & no additional complaints except as documented Subjective/ROS - Narrative: CONSTITUTIONAL: Negative for fatigue, negative for fever or night sweats. HEAD AND NECK: Negative for changes in hearing and vision. Negative for mouth ulcers, nasal congestion and nasal drainage. PULMONARY: Negative for chest pain, cough and dyspnea. CARDIOVASCULAR: Negative for claudication and irregular heartbeat/palpitations. GASTROINTESTINAL: Negative for abdominal pain, constipation, decreased appetite,diarrhea, nausea or vomiting. GENITOURINARY: Negative for dysuria and hematuria. ENDOCRINE: Negative for cold intolerance and heat intolerance. Breasts with mild hyperpigmentation in prior left breast radiation field, no masses CENTRAL NERVOUS SYSTEM: Negative for gait disturbance and headache. PSYCHIATRIC: Negative for anxiety or depression. DERMATOLOGICAL: Negative for pruritus and positive for inframammary rash. Negative for suspicious skin lesions. MUSCULOSKELETAL: Negative for back pain and bone/joint symptoms. HEMATOLOGICAL: Negative for bleeding and easy bruising. Negative for history of transfusion or thromboembolic disease ALLERGY: Negative for environmental allergies and food allergies. PMFSH - History Attestation statement: The following information was validated with the patient. Source: Old Records Reviewed - Medical History Medical History: Medical History (Last Reviewed 10/13/22 @ 09:04 by Floresita Gonzalez MD) Breast cancer, left CAD (coronary artery disease) Diabetes type [address] of [address] elevation myocardial infarction (STEMI) 08/2021 HTN (hypertension) Hypothyroid Ischemic cardiomyopathy Mixed hyperlipidemia Psoriasis Pulmonary nodule Rheumatoid arthritis - Surgical History Surgical History: Surgical History (Last Reviewed 10/13/22 @ 09:04 by Floresita Gonzalez MD) History of open reduction and internal fixation (ORIF) procedure left ankle Hx of arthroscopic knee surgery bilateral Stented coronary artery x 2 (08/23/21) - Family History Family History: Family History (Last Reviewed 10/13/22 @ 09:04 by Floresita Gonzalez MD) Brother Stroke Mother History of heart surgery Father Accidental Brother CAD (coronary artery disease) Sister CAD (coronary artery disease) - Social History Smoking Status: Never smoker Substance Use Type: None Substance Abuse Comment: marijuana edible approx 2 wks ago for nausea, one time only & from dispensa Social History Comments: grandson - age 21 Home Medications & Allergies Allergies No Known Allergies Allergy (Verified 10/13/22 08:33) Home Medications leflunomide 20 mg tablet 20 mg PO DAILY RA 08/23/21 [History Confirmed 10/13/22] levothyroxine 112 mcg tablet (Synthroid) 112 mcg PO DAILY hypothyroidism 08/23/21 [History Confirmed 10/13/22] oxycodone-acetaminophen 5 mg-325 mg tablet (Percocet) 1 tab PO TID PRN Pain 08/23/21 [History Confirmed 10/13/22] insulin aspar prot-insulin aspart 100 unit/mL (70-30) subcutaneous pen (Novolog Mix 70-30FlexPen U-100) 15 unit subcut QPM diabetes 08/26/21 [History Confirmed 10/13/22] insulin aspar prot-insulin aspart 100 unit/mL (70-30) subcutaneous pen (Novolog Mix 70-30FlexPen U-100) 34 unit subcut QAM diabetes 08/26/21 [History Confirmed 10/13/22] nitroglycerin 0.4 mg sublingual tablet 0.4 mg sublingual Q5MIN.X3 PRN Chest Pain30 days #25 tabs 08/27/21 [Rx Confirmed 10/13/22] aspirin 81 mg tablet,delayed release 81 mg PO DAILY STEMI 12/14/21 [History Confirmed 10/13/22] atorvastatin 40 mg tablet 80 mg PO QHS hyperlipidemia 12/14/21 [History Confirmed 10/13/22] carvedilol 12.5 mg tablet 12.5 mg PO BID heart 12/14/21 [History Confirmed 10/13/22] clopidogrel 75 mg tablet 75 mg PO QAM anticoagulation 12/14/21 [History Confirmed 10/13/22] hydroxychloroquine 200 mg tablet 200 mg PO QAM RA 12/14/21 [History Confirmed 10/13/22] prednisone 5 mg tablet 5 mg PO DAILY PRN Pain 12/14/21 [History Confirmed 10/13/22] sacubitril 49 mg-valsartan 51 mg tablet (Entresto) 1 tab PO BID heart 12/14/21 [History Confirmed 10/13/22] ibuprofen 600 mg tablet 600 mg PO Q4-6H PRN pain 10 days #20 tabs 12/28/21 [Rx Confirmed 10/13/22] insulin degludec 100 unit/mL (3 mL) subcutaneous pen (Tresiba FlexTouch U-100 insulin) 60 unit subcut DAILY 01/10/22 [History Confirmed 10/13/22] spironolactone 25 mg tablet 25 mg PO DAILY 01/10/22 [History Confirmed 10/13/22] mometasone 0.1 % topical cream 1 applic topical DAILY #45 grams 02/02/22 [Rx Confirmed 10/13/22] anastrozole 1 mg tablet 1 mg PO DAILY 90 days #90 tabs 04/04/22 [Rx Confirmed 10/13/22] nystatin 100,000 unit/gram topical powder (Nystop) 1 applic topical BID #1 g 10/13/22 [Rx] Objective - Height/Weight Height/Weight: Height 5 ft 5 in Weight 106.7 kg - Vital Signs Vital Signs: 10/13/22 08:35 Temperature 97.8 F Pulse Rate [Left Brachial] 79 Respiratory Rate 16 Blood Pressure [Left Arm] 135/78 02 Sat by Pulse Oximetry 100 Oxygen Delivery Method Room Air Physical Exam Narrative: CONSTITUTIONAL: The patient is in no acute distress. HEENT: Oral mucosa is pink/moist; no lesions or exudate. BREAST EXAM: Right breast no masses or skin changes. Healed left upper outer quadrant breast incision, mild hyperpigmentation over left breast radiation field. No masses. Bilateral inferior mammary fold scaling maculopapular rash consistent with candidiasis. No axillary fullness or tenderness noted. LYMPHATIC: No palpable cervical, supraclavicular, axillary, or inguinal adenopathy. RESPIRATORY: Normal to inspection. Lungs clear to auscultation and percussion. No wheezing, rales, rhonchi or rubs. Normal effort. CARDIOVASCULAR: Regular rate and rhythm. No murmurs, gallops, or rubs. VASCULAR: Carotid, radial, femoral and pedal pulses present bilaterally. No bruits. ABDOMEN: Bowel sounds normoactive. Soft, nontender and non-distended. No hepatosplenomegaly. No masses. GENITOURINARY: No CVA tenderness. No suprapubic fullness or tenderness. No groinadenopathy. No evidence of hernias. INTEGUMENTARY: The skin is remarkable for bilateral inframammary mass. No axillary changes concerning for active hidradenitis suppurativa. No suspicious lesions. BACK / SPINE: The back is nontender. MUSCULOSKELETAL: Normal musculature, no joint deformities or abnormalities, normal range of motion for all four extremities. EXTREMITIES: No edema, cyanosis or clubbing. No Ariana sign. NEUROLOGICAL: Alert and oriented. Cranial nerves intact. No gross motor or sensory deficits. PSYCHIATRIC: No anxiety or evidence of depression. - ECOG Performance Status ECOG Score: 1 Results - Labs Labs: No recent labs for review - Impressions Outside CT imaging from [place] is being requested for her records. Followed by Dr. Latif. Assessment and Plan - TNM Staging Staging: T2 N0 MX (2.4 cm, 4 lymph nodes negative) left breast cancer found incidentally on PET/CT. Pathology invasive lobular carcinoma, ER 95%, IA 0%, HER-2 nonamplified by FISH. Oncotype DX returned low risk recurrence score 19 (1) Malignant neoplasm of upper-outer quadrant of left breast in female, estrogen receptor positive This is a 66-year-old lady with recent diagnosis of left upper outer quadrant invasive lobular carcinoma right breast, T2N0 after lumpectomy on 12/28/2021. Estrogen receptor 95%, progesterone receptor 0, HER-2/ortiz 0 by FISH. We discussed her pathology results and arranged Oncotype DX testing of her lumpectomy specimen. She has nodular lesions of the lungs which have been evaluated with pulmonary medicine and cardiothoracic surgery earlier this year prompting PET/CT which resulted in the diagnosis of her breast cancer. I contacted Dr. Patel of CT surgery to discuss further evaluation of these pulmonary nodules which may be inflammatory. It may be helpful to repeat her PET/CT to see if there is any progression of these areas suggesting more inflammatory process. She also has abnormalities of the right palatine tonsils on PET/CT and is being evaluated with ENT for nasopharyngoscopy in about 2 weeks. She also has a recent diagnosis of ST elevation myocardial infarction which may impact her suitability for further therapy based on her risk score (likely avoiding anthracyclines if higher risk). 02/02/2022: Follow-up to review Oncotype DX score 19, low risk recurrence score. Increased FDG avidity on PET/CT evaluated with nasopharyngoscopy which returned negative for malignancy. I contacted Dr. Patel to discuss follow-up PET/CT to determine status of her pulmonary nodules and whether biopsy is recommended prior to planned adjuvant radiation therapy. She will follow-up with CT surgerywithin 1 week of her PET/CT to determine whether she can proceed with radiation oncology. We also discussed her prior DEXA scan from January 2021 showing osteopenia which she will take calcium and vitamin D. She can proceed with anastrozole therapy 1 mg daily after she completes adjuvant radiation and will follow-up with me 1 month thereafter. 04/04/2022: Chucky is here for 1 month follow-up post initiation of adjuvant endocrine therapy with anastrozole 1 mg p.o. daily. She completed her course ofadjuvant radiation on 03/10/2022; and commenced anastrozole on 03/11/2022. The patient denies any significant or untoward side effects related to endocrine therapy thus far. She specifically denies any issues with headaches, increased blood pressure, chest pain, shortness of breath, myalgias/arthralgias, or hot flashes. She notes no significant changes on self breast exam. She is due to see radiation oncology today for 1 month skin check following completion of radiation. She continues to follow with Dr. Gonzalez every 3 months and is dueto see him next week. --Will fill anastrozole 1 mg p.o. daily with 90-day supply. Will alternate visits with surgery (she sees Dr. Gonzalez every 3 months); will see her in 6 months; sooner if new issues arise. Next mammogram due in Fall 2021. Next DEXA scan due February 2023. 10/13/2022: He is here for 6-month follow-up (also following every [address] Gonzalez). No evidence of recurrence on breast exam. She is tolerating anastrozole 1 mg daily without significant myalgias or hot flashes. Her 1 year follow-up mammogram may be ordered by Dr. Gonzalez when she sees himnext week. We will continue to follow every 6 months--she will be due for her next DEXA prior to follow-up in 6 months. Pulmonary nodules as noted below are favored to be rheumatoid and Dr. Latif has personally contacted me regarding ongoing follow-up of these nodules. We are requesting her outside [facility] our records. Moderate complexity visit over 30 minutes. (2) Pulmonary nodules/lesions, multiple Bibasilar pulmonary nodules on PET/CT September 2021. - Repeat PET/CT done in January 2022; which showed increase in size. She has sinceseen both Dr. Patel and Dr. Latif. - She saw Dr. Latif on 03/21/2022 and most recent repeat CT scan showed decrease in size; therefore, biopsy was deferred. - Dr. Latif contacted me last month and noted that he feels these are more likely benign rheumatoid nodules and he will continue to follow with serial imaging at [facility]. (3) ST elevation (STEMI) myocardial infarction The patient had ST elevation HI with left heart catheterization August 2021 showing inferior STEMI. She had placement of distal RCA stent and mid RCA stentwith aspiration thrombectomy of the PDA branch. Continue follow-up with cardiology. (4) Osteopenia Baseline osteopenia noted on DEXA scan 03/14/2021. In February 2022 after completing radiation she started anastrozole 1 mg daily but should continue calcium with supplemental vitamin D twice daily. We ordered repeat DEXA scan due in February 2023. (5) Rheumatoid arthritis Chronic joint pain which is stable. No recent flare. Followed by Dr. Samayoa last seen about 6 weeks ago. (6) Skin candidiasis Chronic oral prednisone for RA with evidence of inframammary candidiasis. Treating with Nystop powder twice daily as needed to minimize infection. (7) Use of aromatase inhibitors Commenced adjuvant endocrine therapy with anastrozole 1 mg p.o. daily?started 03/11/2022. Plan 5 to 7 years. Well-tolerated with no side effects. - Chemo Plan Chemo Plan (Dose, Rate, Freq): Anastrozole 1 mg daily started February 2022. Continue for 5 to 7-year course. Goal of Treatment: Curative - Time with Patient Time Spent with Patient (Follow Up Visit): 35 minutes - Moderate complexity to address follow-up of pulmonary nodules, rheumatoid arthritis, and to review tolerance of AI therapy Coordination of Care & Counseling Time: Greater than 50% of time spent with patient was for coordination of care (as documented) and [id number] counseling of patient and/or family. Dictated By: Floresita Gonzalez MD DD/ 0845 Signed By: <Electronically signed by MD Floresita Gonzalez> 10/13/22 0914 [facility] Work Phone: 1([phone]) 574-840706-20-2022 Progress note Author Della Louis [facility] April 04, 2022 3:32pm Note Date/Time April 04, 2022 11:2 3am [facility] [place] [address] Rad Onc Follow Up Note - OP Signed Patient: Chucky Dunlap MR#: [id number] : 1955 Acct:[id number] Age/Sex: 66 / F Type: REG RCR Copies to: MD Reese Paulino DO Fredric Itzkowitz, CARLA Assessment & Plan (1) Breast cancer, left breast Plan: Return to clinic as needed Assessment: 66-year-old female with Stage IIA pT2N0 invasive lobular carcinoma of the left breast, grade 2, ER + with associated LCIS. Her Oncotype returned 19 and she was recommended for endocrine therapy. She completed whole breast radiation to a dose of 40 Gy in 15 fractions, with cavity boost 10 Gy in 4 fractions due to the concern for positive skin margin. She returns to clinic and is recovered from her radiation. She was counseled to stop Silvadene and mometasone as thereis no residual desquamation or erythema noted. We reviewed light massage techniques to help minimize radiation fibrosis. She has been started on anastrozole under the care of medical oncology and is tolerating well today. During her radiation course she had a follow-up CT of the chest on March 01, 2022 that showed a marked reduction in the size of the subpleural pulmonary nodules which was more consistent with an inflammatory disease such as rheumatoid nodules. Her biopsy was canceled and short-term follow-up assessment in 3 to 6 months was recommended by radiology. Patient has follow-up with pulmonology andis scheduled for her next CT scan. She has follow-up with the surgery Medical Oncology per the NCCN guidelines we will discharge her today in their care. We are happy to see her back at any time if there is a need for additional radiation or radiation related concerns. Follow Up Note - Narrative 66-year-old female was followed by pulmonology due to lung nodules. She has thefollowing oncologic history: September 29 2021 PET scan done to follow-up on pulmonary nodules. PET noted pleural nodules in the lung bases, left greater than right. They were similar to prior exam. They did show increased FDG activity with the most prominent being medial left lung base with a maximum SUV of 5.5. These are of uncertain etiology. There was subtle increased FDG uptake in the left breast. Mammogram was recommended. November 04, 2021 diagnostic mammo showed a 1.7 cm focal asymmetry in the lateralaspect of the left breast 8 cm from the nipple. 2:00, upper outer quadrant position. There were accompanying clustered microcalcifications suspicious for malignancy. Breast ultrasound confirmed a 2.2 cm lesion hypoechoic with posterior shadowing and angulated margins with surrounding architectural distortion. December 09, 2021 patient underwent left breast ultrasound-guided biopsy. Pathology showed invasive lobular carcinoma, grade 2 largest invasive focus was 9 mm. There was LCIS with associated microcalcifications. ER positive IA negative HER-2 negative by FISH. December 28, 2021 patient underwent left breast lumpectomy with pathology confirming invasive lobular carcinoma, grade 2, 2.4 cm in size. There is associated LCIS, nuclear grade 1-2, with focal central necrosis and associated microcalcifications. The lateral margin is focally positive for invasive carcinoma. pT2N0 4 lymph nodes were negative. There was no LVSI. No skin present in the sample. January 06, 2022 patient met with surgery to review pathology. Her surgeon explained that there was no more lateral border to remove. That any lateral border would be the skin. Since the pathology was noted to be focally positive was not deemed necessary to resect the skin. She was offered aspiration of the seroma however she declined. Her Oncotype returned 19 no systemic therapy was recommended. March 10, 2022 patient completed left whole breast radiation to a dose of 40 Aldana in 15 fractions. This was followed by cavity boost of 10 Aldana in 4 fractions due to concern from skin margin. She tolerated her radiation therapy well with expected side effects of fatigue and radiation dermatitis. Of note she had a follow-up CT of the chest on March 01, 2022 that showed a marked reduction in the size of the subpleural pulmonary nodules which was more consistent with an inflammatory disease such as rheumatoid nodules. Her biopsy was canceled and short-term follow-up assessment in 3 to 6 months was recommended by radiology. Today patient is overall doing well. She feels she has recovered from her radiation and continues to use Silvadene and mometasone. She is following with pulmonology and has a follow-up chest CT scheduled. She has also started Arimidex and denies any significant side effects. Physical exam: General: Alert and oriented, no acute distress. HEENT: Normocephalic, extraocular movements intact Chest: Normal work of breathing on room air Breast: Treated left breast shoes expected post radiation change with residual tanning. There is no residual erythema nor desquamation. Contralateral breast within normal limits. Exam continues to show psoriatic lesions throughout and axilla consistent with hydradentitis suppurativa Lymph: No palpable cervical, supraclavicular, axillary lymphadenopathy bilaterally. Abdomen: Nonacute MSK: Extremities within normal limits Dictated By: Della Louis MD DD/ [id number] Signed By: <Electronically signed by Della Louis MD> 04/04/22 1532 [facility] Work Phone: [phone]) 988-801806-20-2022 Progress note Author Lizzie Galeas [facility] April 04, 2022 12:49pm Note Date/Time April 04, 2022 11:4 8am [facility] at [address] [address] Hem/Onc Follow Up Note - OP Signed Patient: Chucky Dunlap MR#: [id number] : 1955 Acct:[id number] Age/Sex: 66 / F Type: REG RCR Copies to: DO Salty James, ~ Subjective Date/Time of Service: Date of Service: 04/04/2022 Time of Service: 11:48 Chief Complaint: Patient is here today for a follow up visit for breast cancer of the left breast. HPI: 04/04/2022: Chucky is here for 1 month toxicity visit following initiation of adjuvant endocrine therapy with anastrozole. She denies any untoward side effects related to endocrine therapy, namely hot flashes, myalgias or arthralgias. She is mildly fatigued since completing radiation on 03/10/2022, but overall is doing well. She notes that she had subsequent follow-up with following PET/CT scan for pleural nodules that had increased FDG activity. The patient reports that she was going to undergo biopsy, however, the nodules appear to have decreased in size and biopsy was aborted. Dr. Das since coordinated longitudinal follow-up with Dr. Latif (pulmonology) to follow-up with serial CT scan. She denies any significant pain or changes in breast self exam. She follows closely with Dr. Gonzalez (will see next week) and will see radiation oncology today for 1 month skin recheck/follow up. 02/02/2022: Radha is here for follow-up of cancer type ID testing. This returned at low risk with recurrence score 19, 6% risk of distant recurrence at 9 years and less than 1% chemotherapy benefit. She underwent evaluation by Dr. Whiteside due to uptake within the right Helitene tonsils on recent PET/CT, but no lesions were seen and he has not requested any further follow-up. She has not had any follow-up with Dr. Patel for evaluation of pleural nodules that had increased FDG avidity. I contacted Dr. Patel today and we scheduled a subsequent PET/CT within the next week to determine if there was any interval change in size or FDG avidity of her pulmonary nodules and whether biopsy would proceed prior to planned adjuvant radiation therapy. She will have subsequent follow-up with Dr. Patel after her PET/CT I will then coordinate when she may proceed to her radiation therapy. -- Since she is not a candidate for chemotherapy, we did discuss initiation of hormonal therapy with anastrozole 1 mg daily. This may be initiated following her radiation therapy, and subsequent follow-up with me will be after 1 month ofadjuvant anastrozole. We will coordinate her medical oncology follow-up after we determine the plan for work-up of the pulmonary nodules as noted above. Her most recent DEXA scan was performed February 12, 2021 at [facility] revealing baseline osteopenia/decreased bone density. This will be followed every 2 years while on aromatase inhibitor therapy. We also discussed other potential adverse effects of therapy including hot flashes, myalgias, dyspepsia, and uncommon rashes. PREVIOUS HISTORY: Original consult 01/13/2022 This is a 66-year-old lady with a recent complicated history. She notes that inAugu2020 she was diagnosed with pneumonia and had persistent chest wall pain therefore was referred for follow-up chest x-ray and subsequent CT. She was found nodules within the left lung base. Dr. Latif at [place] referred her to Dr. Patel of CT surgery for possible biopsy. Prior to this referral she reports having a myocardial infarction in August 2021 with placement of stentsand was placed on antiplatelet therapy, therefore Dr. Patel ordered a PET/CT which showed pleural nodules in the lung bases with increased FDG avidity, most prominently in the left lung base with SUV 5.5. She was also found to have uptake within right palatine tonsils with SUV 4.7 that may be reactive and she is scheduled to see Dr. Whiteside of ENT on 01/27/2022. A third finding was subtle increased FDG uptake in the left breast with SUV 3.0. Patient had no personal or family history of breast cancer and had no mammography for the last 20 years therefore she was sent for mammogram and ultrasound. She did not have any palpable masses, pain, or skin changes of the left breast. Left breast ultrasound on 11/04/2021 showed a 2.2 x 1.6 x 1.5 cm lesion taller more than wide at the 1 to 2 o'clock position 5 cm from the nipple. This correlated to 1.7 cm focal asymmetry on diagnostic mammography. Core needle biopsy was performed 11/24/2021 revealing invasive lobular carcinoma, Ozzy histologic grade 2 (3+2+1 equal 6). 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 Estrogen receptor +95%, progesterone receptor -0%, HER-2/ortiz was equivocal by IHC but negative by FISH. She was referred to Dr. Gonzalez for left breast lumpectomy with sentinel lymphnode biopsy. 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 Lateral margin was positive focally for invasive carcinoma however this was skin margin therefore reexcision is not indicated. Pathologic stage pT2 (sn)pN0 Mx. She has been sent here to evaluate for adjuvant therapy. She tolerated surgery well and has minimal pain at site of surgery. We discussed utilization of Oncotype DX due to estrogen receptor positive, HER-2 negative, lymph node negative breast cancer to determine if she is a candidate for chemotherapy for high risk disease or whether she should proceed to radiation therapy. I would also like to defer her follow-up until she is seen by ENT for abnormal uptake in the tonsil. I believe her changes in the lung maybe followed, although I will try to contact Dr. Patel and see if he recommends biopsy prior to receiving systemic therapy. She will follow-up with me in about3 weeks to review results of Oncotype DX and to determine further plan of therapy. 1. T2 N0 MX (2.4 cm, 4 lymph nodes negative) left breast cancer found incidentally on PET/CT. Pathology invasive lobular carcinoma, ER 95%, IA 0%, HER-2 nonamplified by FISH. 2. History of ST elevation myocardial infarction August 2021 with placement of stents in the mid and distal RCA with aspiration thrombectomy of PDA branch 3. Indeterminate pulmonary nodules in the lung bases, increased FDG avidity of left lung base nodule SUV 5. Repeat PET/CT ordered 02/02/2022 which will be followed up with Dr. Murry 4. Indeterminate right tonsillar pillar uptake, completed ENT evaluation reported as no concerning findings for malignancy. - Summary of Therapies Summary of Therapies: 1.) 12/28/2021: left breast lumpectomy with sentinel lymph node biopsy 2.) Oncotype DX which returned low risk, recurrence score 19. 3.) Completed adjuvant radiotherapy from 02/14/2022-03/10/2022 4.) Commenced adjuvant endocrine therapy with anastrozole 1 mg p.o. daily on 03/11/2022. Pulmonary nodules - followed by Dr. Latif with serial imaging - next CT scan due: mid May 2022 ROS Details: All systems reviewed & no additional complaints except as documented Subjective/ROS - Narrative: CONSTITUTIONAL: Negative for fatigue, negative for fever or night sweats. HEAD AND NECK: Negative for changes in hearing and vision. Negative for mouth ulcers, nasal congestion and nasal drainage. PULMONARY: Negative for chest pain, cough and dyspnea. CARDIOVASCULAR: Negative for claudication and irregular heartbeat/palpitations. GASTROINTESTINAL: Negative for abdominal pain, constipation, decreased appetite,diarrhea, nausea or vomiting. GENITOURINARY: Negative for dysuria and hematuria. ENDOCRINE: Negative for cold intolerance and heat intolerance. CENTRAL NERVOUS SYSTEM: Negative for gait disturbance and headache. PSYCHIATRIC: Negative for anxiety or depression. DERMATOLOGICAL: Negative for pruritus and rash. Negative for suspicious skin lesions. MUSCULOSKELETAL: Negative for back pain and bone/joint symptoms. HEMATOLOGICAL: Negative for bleeding and easy bruising. Negative for history of transfusion or thromboembolic disease ALLERGY: Negative for environmental allergies and food allergies. [facility] - Medical History Medical History: Medical History (Last Reviewed 03/01/22 @ 09:04 by Matilde Kim RN) Breast cancer, left CAD (coronary artery disease) Diabetes type [address] of [address] elevation myocardial infarction (STEMI) 08/2021 HTN (hypertension) Hypothyroid Ischemic cardiomyopathy Mixed hyperlipidemia Psoriasis Pulmonary nodule Rheumatoid arthritis - Surgical History Surgical History: Surgical History (Last Reviewed 03/01/22 @ 09:04 by Matilde Kim RN) History of open reduction and internal fixation (ORIF) procedure left ankle Hx of arthroscopic knee surgery bilateral Stented coronary artery x 2 (08/23/21) - Family History Family History: Family History (Last Reviewed 02/03/22 @ 12:02 by Floresita Gonzalez MD) Brother Stroke Mother History of heart surgery Father Accidental Brother CAD (coronary artery disease) Sister CAD (coronary artery disease) - Social History Smoking Status: Never smoker Substance Use Type: None Substance Abuse Comment: marijuana edible approx 2 wks ago for nausea, one time only & from dispensa Social History Comments: grandson - age 21 Home Medications & Allergies Allergies No Known Allergies Allergy (Verified 04/04/22 11:35) Home Medications leflunomide 20 mg tablet 20 mg PO DAILY 08/23/21 [History Confirmed 04/04/22] levothyroxine 112 mcg tablet (Synthroid) 112 mcg PO DAILY 08/23/21 [History Confirmed 04/04/22] oxycodone-acetaminophen 5 mg-325 mg tablet (Percocet) 1 tab PO TID PRN 08/23/21 [History Confirmed 04/04/22] insulin aspar prot-insulin aspart 100 unit/mL (70-30) subcutaneous pen (Novolog Mix 70-30FlexPen U-100) 15 unit SUBCUT QPM 08/26/21 [History Confirmed 04/04/22] insulin aspar prot-insulin aspart 100 unit/mL (70-30) subcutaneous pen (Novolog Mix 70-30FlexPen U-100) 34 unit SUBCUT QAM 08/26/21 [History Confirmed 04/04/22] nitroglycerin 0.4 mg sublingual tablet 0.4 mg SUBLINGUAL Q5MIN.X3 PRN 30 Days #25 tab 08/27/21 [Rx Confirmed 04/04/22] aspirin 81 mg tablet,delayed release 81 mg PO DAILY 12/14/21 [History Confirmed 04/04/22] atorvastatin 40 mg tablet 80 mg PO QHS 12/14/21 [History Confirmed 04/04/22] carvedilol 12.5 mg tablet 12.5 mg PO BID 12/14/21 [History Confirmed 04/04/22] clopidogrel 75 mg tablet 75 mg PO QAM 12/14/21 [History Confirmed 04/04/22] hydroxychloroquine 200 mg tablet 200 mg PO QAM 12/14/21 [History Confirmed 04/04/22] prednisone 5 mg tablet 5 mg PO DAILY PRN 12/14/21 [History Confirmed 04/04/22] sacubitril 49 mg-valsartan 51 mg tablet (Entresto) 1 tab PO BID 12/14/21 [History Confirmed 04/04/22] ibuprofen 600 mg tablet 600 mg PO Q4-6H PRN 10 Days #20 tab 12/28/21 [Rx Confirmed 04/04/22] insulin degludec 100 unit/mL (3 mL) subcutaneous pen (Tresiba FlexTouch U-100 insulin) 60 unit SUBCUT DAILY 01/10/22 [History Confirmed 04/04/22] spironolactone 25 mg tablet 25 mg PO DAILY 01/10/22 [History Confirmed 04/04/22] mometasone 0.1 % topical cream 1 applic TOPICAL DAILY #45 g 02/02/22 [Rx Confirmed 04/04/22] anastrozole 1 mg tablet 1 mg PO DAILY 90 Days #90 tab 04/04/22 [Rx Confirmed 04/04/22] Objective - Resuscitation Status Resuscitation Status: Full Code - Height/Weight Height/Weight: Height 5 ft 5 in Weight 102.965 kg - Vital Signs Vital Signs: 04/04/22 11:37 Temperature 97.8 F Pulse Rate [Left Brachial] 78 Respiratory Rate 16 Blood Pressure [Left Arm] 149/85 H 02 Sat by Pulse Oximetry 100 Physical Exam Narrative: CONSTITUTIONAL: The patient is in no acute distress. HEENT: Oral mucosa is pink/moist; no lesions or exudate. BREAST EXAM: Breast exam deferred - patient here for toxicity visit 1 month post initiation of AI therapy. Sees radiation oncology today. LYMPHATIC: No palpable cervical, supraclavicular, axillary, or inguinal adenopathy. RESPIRATORY: Normal to inspection. Lungs clear to auscultation and percussion. No wheezing, rales, rhonchi or rubs. Normal effort. CARDIOVASCULAR: Regular rate and rhythm. No murmurs, gallops, or rubs. VASCULAR: Carotid, radial, femoral and pedal pulses present bilaterally. No bruits. ABDOMEN: Bowel sounds normoactive. Soft, nontender and non-distended. No hepatosplenomegaly. No masses. GENITOURINARY: No CVA tenderness. No suprapubic fullness or tenderness. No groinadenopathy. No evidence of hernias. INTEGUMENTARY: The skin is unremarkable. No rashes. No suspicious lesions. BACK / SPINE: The back is nontender. MUSCULOSKELETAL: Normal musculature, no joint deformities or abnormalities, normal range of motion for all four extremities. EXTREMITIES: No edema, cyanosis or clubbing. No Ariana sign. NEUROLOGICAL: Alert and oriented. Cranial nerves intact. No gross motor or sensory deficits. PSYCHIATRIC: No anxiety or evidence of depression. - ECOG Performance Status ECOG Score: 0 Results - Impressions Patient: Chucky Dunlap MR#: [id number] : 1955 Acct:[id number] Age/Sex: 66 / F ADM Date: 2 Loc: XT Room: Type: [facility] Attending Dr: Floresita Gonzalez MD Ordering Provider: Floresita Gonzalez MD Date of Service: 02/07/22 PET/PET tumor subq tx strat sb-mt: follow up lung nodule Copies to: MD Reese Paulino DO Patterson, Richard D Jr, MD~ Whole body PET-CT 02/07/2022. CLINICAL DATA: Lung nodule. TECHNIQUE: Nondiagnostic CT of the whole body was performed for anatomic localization and attenuation correction. Positron emission tomography (PET) of the whole body was then performed 1 hour after the intravenous administration of 12.2 mCi of F-18 Fluorodeoxyglucose (FDG). The CT and PET data sets were fused. The blood glucose level at the time of injection was 153 mg/dl. COMPARISON: 09/29/2021. FINDINGS: There is a small subpleural nodular density demonstrating hypermetabolic activity in the upper lobe of the right lung anteriorly (maximum SUV 3.2). This finding demonstrates interval increases in size and level of activitysince the prior exam. Otherwise, there are postsurgical changes and hypermetabolic activity in the lateral left breast (maximum SUV 2.6). There are additional postsurgical changes and a large collection of fluid in the left axillary region. There may be an enlarged and hypermetabolic left axillary lymphnode in the immediate subcutaneous tissues adjacent to the fluid collection laterally (maximum SUV 3.3). There is hypermetabolic pleural-based nodularity inboth lower hemithoraces laterally (maximum SUVs 4.6 on the right and 4.3 on the left). Gastrointestinal activity is presumably physiologic. There is physiologicactivity in the urinary tract. Note is made of a pericardial effusion. PET/PET tumor subq tx strat sb-mt IMPRESSION: 1. Small hypermetabolic nodular density in the upper lobe of the right lung demonstrating increases in size and level of activity since 09/29/2021. 2. Postsurgical changes and hypermetabolic activity in the lateral left breast. 3. Additional postsurgical changes and a large collection of fluid in the left axillary region along with the possibility of an enlarged and hypermetabolic left axillary lymph node. 4. Hypermetabolic pleural-based nodularity in both lower hemithoraces laterally. Assessment and Plan - TNM Staging Staging: T2 N0 MX (2.4 cm, 4 lymph nodes negative) left breast cancer found incidentally on PET/CT. Pathology invasive lobular carcinoma, ER 95%, IA 0%, HER-2 nonamplified by FISH. Oncotype DX returned low risk recurrence score 19 (1) Malignant neoplasm of upper-outer quadrant of left breast in female, estrogen receptor positive This is a 66-year-old lady with recent diagnosis of left upper outer quadrant invasive lobular carcinoma right breast, T2N0 after lumpectomy on 12/28/2021. Estrogen receptor 95%, progesterone receptor 0, HER-2/ortiz 0 by FISH. We discussed her pathology results and arranged Oncotype DX testing of her lumpectomy specimen. She has nodular lesions of the lungs which have been evaluated with pulmonary medicine and cardiothoracic surgery earlier this year prompting PET/CT which resulted in the diagnosis of her breast cancer. I contacted Dr. Patel of CT surgery to discuss further evaluation of these pulmonary nodules which may be inflammatory. It may be helpful to repeat her PET/CT to see if there is any progression of these areas suggesting more inflammatory process. She also has abnormalities of the right palatine tonsils on PET/CT and is being evaluated with ENT for nasopharyngoscopy in about 2 weeks. She also has a recent diagnosis of ST elevation myocardial infarction which may impact her suitability for further therapy based on her risk score (likely avoiding anthracyclines if higher risk). 02/02/2022: Follow-up to review Oncotype DX score 19, low risk recurrence score. Increased FDG avidity on PET/CT evaluated with nasopharyngoscopy which returned negative for malignancy. I contacted Dr. Patel to discuss follow-up PET/CT to determine status of her pulmonary nodules and whether biopsy is recommended prior to planned adjuvant radiation therapy. She will follow-up with CT surgerywithin 1 week of her PET/CT to determine whether she can proceed with radiation oncology. We also discussed her prior DEXA scan from January 2021 showing osteopenia which she will take calcium and vitamin D. She can proceed with anastrozole therapy 1 mg daily after she completes adjuvant radiation and will follow-up with me 1 month thereafter. 04/04/2022: Chucky is here for 1 month follow-up post initiation of adjuvant endocrine therapy with anastrozole 1 mg p.o. daily. She completed her course ofadjuvant radiation on 03/10/2022; and commenced anastrozole on 03/11/2022. The patient denies any significant or untoward side effects related to endocrine therapy thus far. She specifically denies any issues with headaches, increased blood pressure, chest pain, shortness of breath, myalgias/arthralgias, or hot flashes. She notes no significant changes on self breast exam. She is due to see radiation oncology today for 1 month skin check following completion of radiation. She continues to follow with Dr. Gonzalez every 3 months and is dueto see him next week. Will fill anastrozole 1 mg p.o. daily with 90-day supply. Will alternate visitswith surgery (she sees Dr. Gonzalez every 3 months); will see her in 6 months; sooner if new issues arise. Next mammogram due in Fall 2021. Next DEXA scan due February 2023. (2) Pulmonary nodules/lesions, multiple Bibasilar pulmonary nodules on PET/CT September 2021. - Repeat PET/CT done in January 2022; which showed increase in size. She has sinceseen both Dr. Patel and Dr. Latif. - She saw Dr. Latif on 03/21/2022 and most recent repeat CT scan showed decrease in size; therefore, biopsy was deferred. - She is scheduled for repeat CT scan of chest under the direction of pulmonary in mid May 2022. (3) Abnormal positron emission tomography (PET) scan of head Nonspecific abnormality with FDG uptake in right palatine tonsil--nasopharyngoscopy negative for malignancy. (4) ST elevation (STEMI) myocardial infarction The patient had ST elevation HI with left heart catheterization August 2021 showing inferior STEMI. She had placement of distal RCA stent and mid RCA stentwith aspiration thrombectomy of the PDA branch. Continue follow-up with cardiology. (5) Osteopenia Baseline osteopenia noted on DEXA scan 03/14/2021. May proceed with anastrozole 1 mg daily but should continue calcium with supplemental vitamin D twice daily with repeat DEXA scan due in January 2023. (6) Use of aromatase inhibitors Commenced adjuvant endocrine therapy with anastrozole 1 mg p.o. daily?started 03/11/2022. Plan 5 to 7 years. Well-tolerated at 1 month toxicity visit with no side effects. - Chemo Plan Chemo Plan (Dose, Rate, Freq): Anastrozole 1 mg daily, goal 5-7 years of therapy Goal of Treatment: Curative - Time with Patient Time Spent with Patient (Follow Up Visit): 25 minutes Coordination of Care & Counseling Time: Greater than 50% of time spent with patient was for coordination of care (as documented) and [id number] counseling of patient and/or family. Dictated By: Lizzie Galeas APRN DD/ [id number] Signed By: <Electronically signed by DAY Galeas> 04/04/22 1249 [facility] Work Phone: 1(245) 575-436504-21-2022 Progress note Author Floresita Gonzalez [facility] February 03, 2022 12:11pm Note Date/Time February 02, 2022 1:[address] [place] [address] [place] [address] Hem/Onc Follow Up Note - OP Signed Patient: Chucky Dunlap MR#: [id number] : 1955 Acct:[id number] Age/Sex: 66 / F Type: REG RCR Copies to: MD Reese lAvarado, DO Salty Gonzalez, DO Della Louis MD~ Subjective Date/Time of Service: Date of Service: 02/02/2022 Time of Service: 13:53 Chief Complaint: Patient is here today for 3 week follow up visit for malignant neoplasm of upper outer quadrant in left breast. No new concerns HPI: 02/02/2022: Radha is here for follow-up of cancer type ID testing. This returned at low risk with recurrence score 19, 6% risk of distant recurrence at 9 years and less than 1% chemotherapy benefit. She underwent evaluation by Dr. Whiteside due to uptake within the right Helitene tonsils on recent PET/CT, but no lesions were seen and he has not requested any further follow-up. She has not had any follow-up with Dr. Patel for evaluation of pleural nodules that had increased FDG avidity. I contacted Dr. Patel today and we scheduled a subsequent PET/CT within the next week to determine if there was any interval change in size or FDG avidity of her pulmonary nodules and whether biopsy would proceed prior to planned adjuvant radiation therapy. She will have subsequent follow-up with Dr. Patel after her PET/CT I will then coordinate when she may proceed to her radiation therapy. -- Since she is not a candidate for chemotherapy, we did discuss initiation of hormonal therapy with anastrozole 1 mg daily. This may be initiated following her radiation therapy, and subsequent follow-up with me will be after 1 month ofadjuvant anastrozole. We will coordinate her medical oncology follow-up after we determine the plan for work-up of the pulmonary nodules as noted above. Her most recent DEXA scan was performed February 12, 2021 at [facility] revealing baseline osteopenia/decreased bone density. This will be followed every 2 years while on aromatase inhibitor therapy. We also discussed other potential adverse effects of therapy including hot flashes, myalgias, dyspepsia, and uncommon rashes. PREVIOUS HISTORY: Original consult 01/13/2022 This is a 66-year-old lady with a recent complicated history. She notes that inAugu2020 she was diagnosed with pneumonia and had persistent chest wall pain therefore was referred for follow-up chest x-ray and subsequent CT. She was found nodules within the left lung base. Dr. Latif at [place] referred her to Dr. Patel of CT surgery for possible biopsy. Prior to this referral she reports having a myocardial infarction in August 2021 with placement of stentsand was placed on antiplatelet therapy, therefore Dr. Patel ordered a PET/CT which showed pleural nodules in the lung bases with increased FDG avidity, most prominently in the left lung base with SUV 5.5. She was also found to have uptake within right palatine tonsils with SUV 4.7 that may be reactive and she is scheduled to see Dr. Whiteside of ENT on 01/27/2022. A third finding was subtle increased FDG uptake in the left breast with SUV 3.0. Patient had no personal or family history of breast cancer and had no mammography for the last 20 years therefore she was sent for mammogram and ultrasound. She did not have any palpable masses, pain, or skin changes of the left breast. Left breast ultrasound on 11/04/2021 showed a 2.2 x 1.6 x 1.5 cm lesion taller more than wide at the 1 to 2 o'clock position 5 cm from the nipple. This correlated to 1.7 cm focal asymmetry on diagnostic mammography. Core needle biopsy was performed 11/24/2021 revealing invasive lobular carcinoma, Ozzy histologic grade 2 (3+2+1 equal 6). 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 Estrogen receptor +95%, progesterone receptor -0%, HER-2/ortiz was equivocal by IHC but negative by FISH. She was referred to Dr. Gonzalez for left breast lumpectomy with sentinel lymphnode biopsy. 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 Lateral margin was positive focally for invasive carcinoma however this was skin margin therefore reexcision is not indicated. Pathologic stage pT2 (sn)pN0 Mx. She has been sent here to evaluate for adjuvant therapy. She tolerated surgery well and has minimal pain at site of surgery. We discussed utilization of Oncotype DX due to estrogen receptor positive, HER-2 negative, lymph node negative breast cancer to determine if she is a candidate for chemotherapy for high risk disease or whether she should proceed to radiation therapy. I would also like to defer her follow-up until she is seen by ENT for abnormal uptake in the tonsil. I believe her changes in the lung maybe followed, although I will try to contact Dr. Patel and see if he recommends biopsy prior to receiving systemic therapy. She will follow-up with me in about3 weeks to review results of Oncotype DX and to determine further plan of therapy. 1. T2 N0 MX (2.4 cm, 4 lymph nodes negative) left breast cancer found incidentally on PET/CT. Pathology invasive lobular carcinoma, ER 95%, IA 0%, HER-2 nonamplified by FISH. 2. History of ST elevation myocardial infarction August 2021 with placement of stents in the mid and distal RCA with aspiration thrombectomy of PDA branch 3. Indeterminate pulmonary nodules in the lung bases, increased FDG avidity of left lung base nodule SUV 5. Repeat PET/CT ordered 02/02/2022 which will be followed up with Dr. Murry 4. Indeterminate right tonsillar pillar uptake, completed ENT evaluation reported as no concerning findings for malignancy. - Summary of Therapies Summary of Therapies: 1. 12/28/2021: left breast lumpectomy with sentinel lymph node biopsy 2. Referral for adjuvant radiation therapy. Oncotype DX which returned low risk, recurrence score 19. Start of therapy is pending evaluation of pulmonary nodules. ROS Details: All systems reviewed & no additional complaints except as documented Subjective/ROS - Narrative: CONSTITUTIONAL: Negative for fatigue, negative for fever or night sweats. HEAD AND NECK: Negative for changes in hearing and vision. Negative for mouth ulcers, nasal congestion and nasal drainage. PULMONARY: Negative for chest pain, cough and dyspnea. CARDIOVASCULAR: Negative for claudication and irregular heartbeat/palpitations. GASTROINTESTINAL: Negative for abdominal pain, constipation, decreased appetite,diarrhea, nausea or vomiting. GENITOURINARY: Negative for dysuria and hematuria. ENDOCRINE: Negative for cold intolerance and heat intolerance. CENTRAL NERVOUS SYSTEM: Negative for gait disturbance and headache. PSYCHIATRIC: Negative for anxiety or depression. DERMATOLOGICAL: Negative for pruritus and rash. Negative for suspicious skin lesions. MUSCULOSKELETAL: Negative for back pain and bone/joint symptoms. HEMATOLOGICAL: Negative for bleeding and easy bruising. Negative for history of transfusion or thromboembolic disease ALLERGY: Negative for environmental allergies and food allergies. [facility] - History Attestation statement: The following information was validated with the patient. Source: Old Records Reviewed - Medical History Medical History: Medical History (Last Reviewed 02/03/22 @ 12:02 by Floresita Gonzalez MD) Breast cancer, left CAD (coronary artery disease) Diabetes type [address] of [address] elevation myocardial infarction (STEMI) 08/2021 HTN (hypertension) Hypothyroid Ischemic cardiomyopathy Mixed hyperlipidemia Psoriasis Pulmonary nodule Rheumatoid arthritis - Surgical History Surgical History: Surgical History (Last Reviewed 02/03/22 @ 12:02 by Floresita Gonzalez MD) History of open reduction and internal fixation (ORIF) procedure left ankle Hx of arthroscopic knee surgery bilateral Stented coronary artery x 2 (08/23/21) - Family History Family History: Family History (Last Reviewed 02/03/22 @ 12:02 by Floresita Gonzalez MD) Brother Stroke Mother History of heart surgery Father Accidental Brother CAD (coronary artery disease) Sister CAD (coronary artery disease) - Social History Smoking Status: Never smoker Substance Use Type: None Substance Abuse Comment: marijuana edible approx 2 wks ago for nausea, one time only & from dispensa Social History Comments: grandson - age 21 Home Medications & Allergies Allergies No Known Allergies Allergy (Verified 02/02/22 13:50) Home Medications leflunomide 20 mg tablet 20 mg PO DAILY 08/23/21 [History Confirmed 02/02/22] levothyroxine 112 mcg tablet (Synthroid) 112 mcg PO DAILY 08/23/21 [History Confirmed 02/02/22] oxycodone-acetaminophen 5 mg-325 mg tablet (Percocet) 1 tab PO TID PRN 08/23/21 [History Confirmed 02/02/22] insulin aspar prot-insulin aspart 100 unit/mL (70-30) subcutaneous pen (Novolog Mix 70-30FlexPen U-100) 15 unit SUBCUT QPM 08/26/21 [History Confirmed 02/02/22] insulin aspar prot-insulin aspart 100 unit/mL (70-30) subcutaneous pen (Novolog Mix 70-30FlexPen U-100) 34 unit SUBCUT QAM 08/26/21 [History Confirmed 02/02/22] nitroglycerin 0.4 mg sublingual tablet 0.4 mg SUBLINGUAL Q5MIN.X3 PRN 30 Days #25 tab 08/27/21 [Rx Confirmed 02/02/22] aspirin 81 mg tablet,delayed release 81 mg PO DAILY 12/14/21 [History Confirmed 02/02/22] atorvastatin 40 mg tablet 80 mg PO QHS 12/14/21 [History Confirmed 02/02/22] carvedilol 12.5 mg tablet 12.5 mg PO BID 12/14/21 [History Confirmed 02/02/22] clopidogrel 75 mg tablet 75 mg PO QAM 12/14/21 [History Confirmed 02/02/22] hydroxychloroquine 200 mg tablet 200 mg PO QAM 12/14/21 [History Confirmed 02/02/22] prednisone 5 mg tablet 5 mg PO DAILY PRN 12/14/21 [History Confirmed 02/02/22] sacubitril 49 mg-valsartan 51 mg tablet (Entresto) 1 tab PO BID 12/14/21 [History Confirmed 02/02/22] ibuprofen 600 mg tablet 600 mg PO Q4-6H PRN 10 Days #20 tab 12/28/21 [Rx Confirmed 02/02/22] insulin degludec 100 unit/mL (3 mL) subcutaneous pen (Tresiba FlexTouch U-100 insulin) 10 unit SUBCUT DAILY 01/10/22 [History Confirmed 02/02/22] spironolactone 25 mg tablet 25 mg PO DAILY 01/10/22 [History Confirmed 02/02/22] anastrozole 1 mg tablet 1 mg PO DAILY 30 Days #30 tab 02/02/22 [Rx] mometasone 0.1 % topical cream 1 applic TOPICAL DAILY #45 g 02/02/22 [Rx] Objective - Height/Weight Height/Weight: Height 5 ft 5 in Weight 110.677 kg - Vital Signs Vital Signs: 02/02/22 13:50 Temperature 98.0 F Pulse Rate [Left Brachial] 80 Respiratory Rate 16 Blood Pressure [Left Arm] 146/72 H 02 Sat by Pulse Oximetry 95 Physical Exam Narrative: CONSTITUTIONAL: The patient is in no acute distress. HEAD / FACE: Normocephalic. EYES: Pupils are equal and reactive to light. Conjunctivae and lids are benign in appearance. Ocular movement intact. EARS: Hearing grossly intact. Full exam deferred: Here for review of Oncotype DX and further work-up. See exam below from 01/13/2022. NOSE / MOUTH / THROAT: Nose, mouth, tongue and oropharynx are benign in appearance. No signs of inflammation. NECK / THYROID: Neck is supple. Thyroid is symmetrical, without thyromegaly, masses or palpable nodules. BREAST EXAM: Right breast no masses or skin changes. Healed left upper outer quadrant breast incision, mild left axillary fullness due to seroma. LYMPHATIC: No palpable cervical, supraclavicular, axillary, or inguinal adenopathy. RESPIRATORY: Normal to inspection. Lungs clear to auscultation and percussion. No wheezing, rales, rhonchi or rubs. Normal effort. CARDIOVASCULAR: Regular rate and rhythm. No murmurs, gallops, or rubs. VASCULAR: Carotid, radial, femoral and pedal pulses present bilaterally. No bruits. ABDOMEN: Bowel sounds normoactive. Soft, nontender and non-distended. No hepatosplenomegaly. No masses. GENITOURINARY: No CVA tenderness. No suprapubic fullness or tenderness. No groinadenopathy. No evidence of hernias. INTEGUMENTARY: The skin is unremarkable. No rashes. No suspicious lesions. BACK / SPINE: The back is nontender. MUSCULOSKELETAL: Normal musculature, no joint deformities or abnormalities, normal range of motion for all four extremities. EXTREMITIES: No edema, cyanosis or clubbing. No Ariana sign. NEUROLOGICAL: Alert and oriented. Cranial nerves intact. No gross motor or sensory deficits. PSYCHIATRIC: No anxiety or evidence of depression. - ECOG Performance Status ECOG Score: 1 Results - Impressions PET/PET tumor init tx strat sb-mt IMPRESSION: There are pleural nodules in the lung bases, left greater than right similar to the prior exam. These show increased FDG activity with the most prominent being medial at the left lung base with a maximum SUV of 5.5. These are of uncertain etiology. There is nonspecific FDG uptake asymmetrically within the right palatine tonsilswith a maximum SUV of 4.7. This may be reactive in nature. Malignancy is not excluded however. There is also subtle increased FDG uptake focally in the left breast with a maximum Hounsfield units measurements of 3.0. Malignancy is not excluded although this may be inflammatory in nature. Mammographic correlation is recommended. Impression dictated by: Vito Thomas M.D.09/29/2021 11:44 AM 02/12/2021 DEXA scan at [facility]: AP spine T score -1.4, osteopenia Left femoral neck T score -1.3, osteopenia Right femoral neck T score -1.1, osteopenia Assessment and Plan - TNM Staging Staging: T2 N0 MX (2.4 cm, 4 lymph nodes negative) left breast cancer found incidentally on PET/CT. Pathology invasive lobular carcinoma, ER 95%, IA 0%, HER-2 nonamplified by FISH. Oncotype DX returned low risk recurrence score 19 (1) Malignant neoplasm of upper-outer quadrant of left breast in female, estrogen receptor positive This is a 66-year-old lady with recent diagnosis of left upper outer quadrant invasive lobular carcinoma right breast, T2N0 after lumpectomy on 12/28/2021. Estrogen receptor 95%, progesterone receptor 0, HER-2/ortiz 0 by FISH. We discussed her pathology results and arranged Oncotype DX testing of her lumpectomy specimen. She has nodular lesions of the lungs which have been evaluated with pulmonary medicine and cardiothoracic surgery earlier this year prompting PET/CT which resulted in the diagnosis of her breast cancer. I contacted Dr. Patel of CT surgery to discuss further evaluation of these pulmonary nodules which may be inflammatory. It may be helpful to repeat her PET/CT to see if there is any progression of these areas suggesting more inflammatory process. She also has abnormalities of the right palatine tonsils on PET/CT and is being evaluated with ENT for nasopharyngoscopy in about 2 weeks. She also has a recent diagnosis of ST elevation myocardial infarction which may impact her suitability for further therapy based on her risk score (likely avoiding anthracyclines if higher risk). 02/02/2022: Follow-up to review Oncotype DX score 19, low risk recurrence score. Increased FDG avidity on PET/CT evaluated with nasopharyngoscopy which returned negative for malignancy. I contacted Dr. Patel to discuss follow-up PET/CT to determine status of her pulmonary nodules and whether biopsy is recommended prior to planned adjuvant radiation therapy. She will follow-up with CT surgerywithin 1 week of her PET/CT to determine whether she can proceed with radiation oncology. We also discussed her prior DEXA scan from January 2021 showing osteopenia which she will take calcium and vitamin D. She can proceed with anastrozole therapy 1 mg daily after she completes adjuvant radiation and will follow-up with me 1 month thereafter. The patient expressed understanding over this 35 60-minute moderate complexity follow-up evaluation for multiple comorbidities. (2) Pulmonary nodules/lesions, multiple Bibasilar pulmonary nodules on PET/CT September 2021. Ordered repeat PET/CT as noted above and she will have follow-up with Dr. Patel post CT surgery to determine if biopsy is required prior to starting adjuvant radiation. (3) Abnormal positron emission tomography (PET) scan of head Nonspecific abnormality with FDG uptake in right palatine tonsil--nasopharyngoscopy negative for malignancy. (4) ST elevation (STEMI) myocardial infarction The patient had ST elevation HI with left heart catheterization August 2021 showing inferior STEMI. She had placement of distal RCA stent and mid RCA stentwith aspiration thrombectomy of the PDA branch. Continue follow-up with cardiology. (5) Osteopenia Baseline osteopenia noted on DEXA scan 03/14/2021. May proceed with anastrozole 1 mg daily but should continue calcium with supplemental vitamin D twice daily with repeat DEXA scan due in January 2023. (6) Use of aromatase inhibitors Reviewed informed consent for anastrozole 1 mg daily. We will proceed with 1 month of therapy following adjuvant radiation therapy and follow-up with me to review toxicities 1 month after initiation of therapy. - Chemo Plan Chemo Plan (Dose, Rate, Freq): Anastrozole 1 mg daily, goal 5-7 years of therapy Goal of Treatment: Curative - Time with Patient Time Spent with Patient (Follow Up Visit): 35 minutes - Moderate complexity visit for coordination of care with CT surgery and follow-up PET/CT imaging. Coordination of Care & Counseling Time: Greater than 50% of time spent with patient was for coordination of care (as documented) and [id number] counseling of patient and/or family. Dictated By: Floresita Gonzalez MD DD/ [id number] Signed By: <Electronically signed by MD Floresita Gonzalez> 02/03/22 1211 [facility] Work Phone: [phone]) 961-165003-31-2022 Consult note Author Floresita Gonzalez [facility] January 13, 2022 3:36pm Note Date/Time January 13, 2022 8:3 2am [facility] [place] [address] Hem/Onc Consult Note - OP Signed Patient: Chucky Dunlap MR#: [id number] : 1955 Acct:[id number] Age/Sex: 66 / F Type: REG RCR Copies to: MD Reese Alvarado DO Fredric Itzkowitz, DO~ HPI Date/Time of Service: Date of Service: 01/13/2022 Time of Service: 08:32 Referring Provider/PCP: Referring Provider: Salty Gonzalez DO PCP: Reese Nixon DO - History of Present Illness Reason for Consultation: 66-year-old lady who was being evaluated with PET/CT for pulmonary nodule on CT scan. Incidentally found to have increased uptake in the left breast with visualized mass. Was referred for mammography and ultrasound with eventual biopsy showing invasive lobular carcinoma. Now status post left upper outer quadrant lumpectomy with sentinel lymph node biopsy on 12/28/2021 with T2 N0 MX 2.4 cm, 4 sentinel lymph node negative invasive lobular carcinoma. ER 95%, IA 0, HER-2/ortiz 2+ by IHC (indeterminate) but negative by FISH. Chief Complaint: Patient is here today for a referral from Dr Gonzalez for malignant neoplasm of upper outer quandrant of left breast HPI: Dear Dr. Gonzalez, I had the great pleasure of seeing your patient in consultation. Thank you verymuch for your referral. As you know this is a 66-year-old lady with a recent complicated history. She notes that in May 2021 she was diagnosed with pneumonia and had persistent chest wall pain therefore was referred for follow-up chest x-ray and subsequent CT. She was found nodules within the left lung base. Dr. Latif at [place] referred her to Dr. Patel of CT surgery for possible biopsy. Prior to this referral she reports having a myocardial infarction in August 2021 with placement of stents and was placed on antiplatelet therapy, therefore Dr. Patel ordered a PET/CT which showed pleuralnodules in the lung bases with increased FDG avidity, most prominently in the left lung base with SUV 5.5. She was also found to have uptake within right palatine tonsils with SUV 4.7 that may be reactive and she is scheduled to see Dr. Whiteside of ENT on 01/27/2022. A third finding was subtle increased FDG uptakein the left breast with SUV 3.0. Patient had no personal or family history of breast cancer and had no mammography for the last 20 years therefore she was sent for mammogram and ultrasound. She did not have any palpable masses, pain, or skin changes of the left breast. Left breast ultrasound on 11/04/2021 showed a 2.2 x 1.6 x 1.5 cm lesion taller more than wide at the 1 to 2 o'clock position 5 cm from the nipple. This correlated to 1.7 cm focal asymmetry on diagnostic mammography. Core needle biopsy was performed 11/24/2021 revealing invasive lobular carcinoma, Luckey histologic grade 2 (3+2+1 equal 6). 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 Estrogen receptor +95%, progesterone receptor -0%, HER-2/ortiz was equivocal by IHC but negative by FISH. She was referred to Dr. Gonzalez for left breast lumpectomy with sentinel lymphnode biopsy. 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 Lateral margin was positive focally for invasive carcinoma however this was skin margin therefore reexcision is not indicated. Pathologic stage pT2 (sn)pN0 Mx. She has been sent here to evaluate for adjuvant therapy. She tolerated surgery well and has minimal pain at site of surgery. We discussed utilization of Oncotype DX due to estrogen receptor positive, HER-2 negative, lymph node negative breast cancer to determine if she is a candidate for chemotherapy for high risk disease or whether she should proceed to radiation therapy. I would also like to defer her follow-up until she is seen by ENT for abnormal uptake in the tonsil. I believe her changes in the lung maybe followed, although I will try to contact Dr. Patel and see if he recommends biopsy prior to receiving systemic therapy. She will follow-up with me in about3 weeks to review results of Oncotype DX and to determine further plan of therapy. [facility] - History Attestation statement: The following information was validated with the patient. Source: Old Records Reviewed - Medical History Medical History: Medical History (Last Reviewed 01/13/22 @ 13:02 by Floresita Gonzalez MD) Breast cancer, left CAD (coronary artery disease) Diabetes type [address] of [address] elevation myocardial infarction (STEMI) 08/2021 HTN (hypertension) Hypothyroid Ischemic cardiomyopathy Mixed hyperlipidemia Psoriasis Pulmonary nodule Rheumatoid arthritis - Surgical History Surgical History: Surgical History (Last Reviewed 01/13/22 @ 13:02 by Floresita Gonzalez MD) History of open reduction and internal fixation (ORIF) procedure left ankle Hx of arthroscopic knee surgery bilateral Stented coronary artery x 2 (08/23/21) - Family History Family History: Family History (Last Reviewed 01/13/22 @ 13:04 by Floresita Gonzalez MD) Brother Stroke Mother History of heart surgery Father Accidental Brother CAD (coronary artery disease) Sister CAD (coronary artery disease) - Social History Smoking Status: Never smoker Substance Use Type: None Substance Abuse Comment: marijuana edible approx 2 wks ago for nausea, one time only & from dispensa Social History Comments: grandson - age 21 Home Medications & Allergies Allergies No Known Allergies Allergy (Verified 01/13/22 08:18) Home Medications leflunomide 20 mg tablet 20 mg PO DAILY 08/23/21 [History Confirmed 01/13/22] levothyroxine 112 mcg tablet (Synthroid) 112 mcg PO DAILY 08/23/21 [History Confirmed 01/13/22] oxycodone-acetaminophen 5 mg-325 mg tablet (Percocet) 1 tab PO TID PRN 08/23/21 [History Confirmed 01/13/22] insulin aspar prot-insulin aspart 100 unit/mL (70-30) subcutaneous pen (Novolog Mix 70-30FlexPen U-100) 15 unit SUBCUT QPM 08/26/21 [History Confirmed 01/13/22] insulin aspar prot-insulin aspart 100 unit/mL (70-30) subcutaneous pen (Novolog Mix 70-30FlexPen U-100) 34 unit SUBCUT QAM 08/26/21 [History Confirmed 01/13/22] nitroglycerin 0.4 mg sublingual tablet 0.4 mg SUBLINGUAL Q5MIN.X3 PRN 30 Days #25 tab 08/27/21 [Rx Confirmed 01/13/22] aspirin 81 mg tablet,delayed release 81 mg PO DAILY 12/14/21 [History Confirmed 01/13/22] atorvastatin 40 mg tablet 80 mg PO QHS 12/14/21 [History Confirmed 01/13/22] carvedilol 12.5 mg tablet 12.5 mg PO BID 12/14/21 [History Confirmed 01/13/22] clopidogrel 75 mg tablet 75 mg PO QAM 12/14/21 [History Confirmed 01/13/22] hydroxychloroquine 200 mg tablet 200 mg PO QAM 12/14/21 [History Confirmed 01/13/22] prednisone 5 mg tablet 5 mg PO DAILY PRN 12/14/21 [History Confirmed 01/13/22] sacubitril 49 mg-valsartan 51 mg tablet (Entresto) 1 tab PO BID 12/14/21 [History Confirmed 01/13/22] ibuprofen 600 mg tablet 600 mg PO Q4-6H PRN 10 Days #20 tab 12/28/21 [Rx Confirmed 01/13/22] insulin degludec 100 unit/mL (3 mL) subcutaneous pen (Tresiba FlexTouch U-100 insulin) 10 unit SUBCUT DAILY 01/10/22 [History Confirmed 01/13/22] spironolactone 25 mg tablet 25 mg PO DAILY 01/10/22 [History Confirmed 01/13/22] Subjective Data - Diagnosis DIAGNOSIS: 1. T2 N0 MX (2.4 cm, 4 lymph nodes negative) left breast cancer found incidentally on PET/CT. Pathology invasive lobular carcinoma, ER 95%, IA 0%, HER-2 nonamplified by FISH. 2. History of ST elevation myocardial infarction August 2021 with placement of stents in the mid and distal RCA with aspiration thrombectomy of PDA branch 3. Indeterminate pulmonary nodules in the lung bases, increased FDG avidity of left lung base nodule SUV 5 4. Indeterminate right tonsillar pillar uptake, pending ENT evaluation 01/27/2022 Subjective/ROS - Narrative: CONSTITUTIONAL: Negative for fatigue, negative for fever or night sweats. HEAD AND NECK: Negative for changes in hearing and vision. Negative for mouth ulcers, nasal congestion and nasal drainage. PULMONARY: Negative for chest pain, cough and dyspnea. CARDIOVASCULAR: Negative for claudication and irregular heartbeat/palpitations. GASTROINTESTINAL: Negative for abdominal pain, constipation, decreased appetite,diarrhea and vomiting. GENITOURINARY: Negative for dysuria and hematuria. ENDOCRINE: Negative for cold intolerance and heat intolerance. CENTRAL NERVOUS SYSTEM: Negative for gait disturbance and headache. PSYCHIATRIC: Negative for anxiety or depression. DERMATOLOGICAL: Negative for pruritus and rash. Negative for suspicious skin lesions. MUSCULOSKELETAL: Negative for back pain and bone/joint symptoms. HEMATOLOGICAL: Negative for bleeding and easy bruising. Negative for history of transfusion or thromboembolic disease ALLERGY: Negative for environmental allergies and food allergies. ROS Details: All systems reviewed & no additional complaints except as documented Objective - Height/Weight Height/Weight: Height 5 ft 5 in Weight 112.491 kg - Vital Signs Vital Signs: 01/13/22 08:23 Temperature 98.2 F Pulse Rate [Left Brachial] 65 Respiratory Rate 16 Blood Pressure [Left Arm] 143/80 H 02 Sat by Pulse Oximetry 99 Physical Exam Narrative: CONSTITUTIONAL: The patient is in no acute distress. HEAD / FACE: Normocephalic. EYES: Pupils are equal and reactive to light. Conjunctivae and lids are benign in appearance. Ocular movement intact. EARS: Hearing grossly intact. NOSE / MOUTH / THROAT: Nose, mouth, tongue and oropharynx are benign in appearance. No signs of inflammation. NECK / THYROID: Neck is supple. Thyroid is symmetrical, without thyromegaly, masses or palpable nodules. BREAST EXAM: Right breast no masses or skin changes. Healed left upper outer quadrant breast incision, mild left axillary fullness due to seroma. LYMPHATIC: No palpable cervical, supraclavicular, axillary, or inguinal adenopathy. RESPIRATORY: Normal to inspection. Lungs clear to auscultation and percussion. No wheezing, rales, rhonchi or rubs. Normal effort. CARDIOVASCULAR: Regular rate and rhythm. No murmurs, gallops, or rubs. VASCULAR: Carotid, radial, femoral and pedal pulses present bilaterally. No bruits. ABDOMEN: Bowel sounds normoactive. Soft, nontender and non-distended. No hepatosplenomegaly. No masses. GENITOURINARY: No CVA tenderness. No suprapubic fullness or tenderness. No groinadenopathy. No evidence of hernias. INTEGUMENTARY: The skin is unremarkable. No rashes. No suspicious lesions. BACK / SPINE: The back is nontender. MUSCULOSKELETAL: Normal musculature, no joint deformities or abnormalities, normal range of motion for all four extremities. EXTREMITIES: No edema, cyanosis or clubbing. No Ariana sign. NEUROLOGICAL: Alert and oriented. Cranial nerves intact. No gross motor or sensory deficits. PSYCHIATRIC: No anxiety or evidence of depression. - ECOG Performance Status ECOG Score: 1 Results - Labs Labs: 12/14/2021: WBC 7200, Hg 10.7, Hct 33.6, Platelets 245,000; ANC 4500 Na 136, K 3.9, BUN 9, Creat 0.98, Glu 154, Ca 10 - Impressions PET tumor init tx strat sb-mt 09/29/2021 8:47 AM SIGNS AND SYMPTOMS: Follow-up pulmonary nodules PROTOCOL: Multiplanar images were obtained from mid skull through the upper thigh after intravenous radiotracer administration. Low-dose CT of the same bodyparts was performed. After attenuation correction of PET imaging, fused PET CT images were generated and reconstructed in axial, sagittal, and coronal plane. COMPARISON: Outside CT dated 08/03/2021 RADIOPHARMACEUTICAL: 12.62 mCi of intravenous fluorine 18 FDG BLOOD GLUCOSE: 93 mg/dL FINDINGS: There are pleural nodules in the lung bases, left greater than right similar to the prior exam. These show increased FDG activity with the most prominent being medial at the left lung base with a maximum SUV of 5.5. These are of uncertain etiology. There is nonspecific FDG uptake asymmetrically within the right palatine tonsils with a maximum SUV of 4.7. This may be reactive in nature. Malignancy is not excluded however. There is also subtle increased FDG uptake focally in the left breast with a maximum Hounsfield units measurements of 3.0. Malignancy is not excluded although this may be inflammatory in nature. Mammographic correlation is recommended. There is physiologic radiotracer activity within the brain parenchyma, within the myocardium, liver, kidneys, bladder, and bowel wall. No additional abnormal radiotracer accumulation is noted. PET/PET tumor init tx strat sb-mt IMPRESSION: There are pleural nodules in the lung bases, left greater than right similar to the prior exam. These show increased FDG activity with the most prominent being medial at the left lung base with a maximum SUV of 5.5. These are of uncertain etiology. There is nonspecific FDG uptake asymmetrically within the right palatine tonsilswith a maximum SUV of 4.7. This may be reactive in nature. Malignancy is not excluded however. There is also subtle increased FDG uptake focally in the left breast with a maximum Hounsfield units measurements of 3.0. Malignancy is not excluded although this may be inflammatory in nature. Mammographic correlation is recommended. Impression dictated by: Vito Thomas M.D.09/29/2021 11:44 AM MM/MM diagnostic mammo BI w/CAD IMPRESSION: At the 1 to 2:00 position 5 cm from the nipple there is a 2.2 x 1.6 x 1.5 cm lesion which is taller than wide, hypoechoic, has posterior acoustic shadowing, and angulated margins. There is surrounding architectural distortion.. There are accompanying microcalcifications on mammogram. This is suspicious for malignancy and corresponds to the abnormal FDG avidity seen on the previous PET/CT. RESULT CODE: 4 Suspicious Abnormality - Biopsy Considered DENSITY CODE: 2 (approximately 25-50% glandular) FOLLOW UP: BIO The false-negative rate of mammography is approximately 10-percent. Management of a palpable abnormality must be based on clinical grounds. Impression dictated by: Vito Thomas M.D.11/04/2021 2:35 PM Assessment and Plan - TNM Staging Staging: T2 N0 MX (2.4 cm, 4 lymph nodes negative) left breast cancer found incidentally on PET/CT. Pathology invasive lobular carcinoma, ER 95%, IA 0%, HER-2 nonamplified by FISH. (1) Malignant neoplasm of upper-outer quadrant of left breast in female, estrogen receptor positive This is a 66-year-old lady with recent diagnosis of left upper outer quadrant invasive lobular carcinoma right breast, T2N0 after lumpectomy on 12/28/2021. Estrogen receptor 95%, progesterone receptor 0, HER-2/ortiz 0 by FISH. We discussed her pathology results and arranged Oncotype DX testing of her lumpectomy specimen. She has nodular lesions of the lungs which have been evaluated with pulmonary medicine and cardiothoracic surgery earlier this year prompting PET/CT which resulted in the diagnosis of her breast cancer. I contacted Dr. Patel of CT surgery to discuss further evaluation of these pulmonary nodules which may be inflammatory. It may be helpful to repeat her PET/CT to see if there is any progression of these areas suggesting more inflammatory process. She also has abnormalities of the right palatine tonsils on PET/CT and is being evaluated with ENT for nasopharyngoscopy in about 2 weeks. She also has a recent diagnosis of ST elevation myocardial infarction which may impact her suitability for further therapy based on her risk score (likely avoiding anthracyclines if higher risk). She will follow-up in 3 weeks to review Oncotype DX, further therapy plan, and discussion of her results from endoscopy by ENT. She is also seeing radiation oncology although radiation will be deferred until we determine if she requires chemotherapy based on her Oncotype DX score. The patient expressed understanding over this 60-minute high complexity evaluation for multiple comorbidities. I would like to thank you very much for the courtesy of this referral. I will keep you up-to-date with this patient's progress. Should you have any questionsregarding the management of this patient, please do not hesitate to contact me. Sincerely, Floresita Gonzalez MD, FACP Medical Oncology (2) Pulmonary nodules/lesions, multiple Bibasilar pulmonary nodules on PET/CT September 2021. She will have follow-up with Dr. DeRiso post CT surgery prior to her next evaluation with me in 3 weeks. We will also present her case in tumor board. At this time it is unlikely thatthese are metastatic lesions but we may consider biopsy if feasible, particularly if progression is noted on follow-up imaging. (3) Abnormal positron emission tomography (PET) scan of head Nonspecific abnormality with FDG uptake in right palatine tonsil pending ENT evaluation as noted above. (4) ST elevation (STEMI) myocardial infarction The patient had ST elevation HI with left heart catheterization August 2021 showing inferior STEMI. She had placement of distal RCA stent and mid RCA stentwith aspiration thrombectomy of the PDA branch. Continue follow-up with cardiology. - Time with Patient Total Time Spent with Patient (Consult): 60 mins or more Coordination of Care & Counseling Time: Greater than 50% of time spent with patient was for coordination of care (as documented) and [id number] counseling of patient and/or family. Dictated By: Floresita Gonzalez MD DD/ [id number] Signed By: <Electronically signed by MD Floresita Gonzalez> 01/13/22 1536 [facility] Work Phone: [phone] Consult note Author Della Louis [facility] January 13, 2022 10:04am Note Date/Time January 12, 2022 3:4 7pm [facility] [place] [address] Rad Onc Consult Note - OP Signed Patient: Chucky Dunlap MR#: [id number] : 1955 Acct:[id number] Age/Sex: 66 / F Type: REG RCR Copies to: MD Reese Paulino DO Fredric Itzkowitz, DO~ Assessment & Plan (1) Breast cancer, left breast Plan: 1. Await Oncotype 2. CT simulation -plan for whole breast radiation therapy to a dose of 40 Gy in 15 fractions, followed by cavity boost 10 Gy in 4 fractions due to the concern for positive skin margin. Consideration would be for superficial electrons for the boost, pending her anatomy, to allow for sufficient skin dose. Prone position will be utilized for cardiac sparing 3. No GREEN Tea, only mometasone for skin care. 4. Multi-disciplinary tumor board presentation -need for Pulmonary referral versus CT-guided biopsy. Assessment: 66-year-old female with Stage IIA pT2N0 invasive lobular carcinoma of the left breast, grade 2, ER + with associated LCIS. I reviewed her pathology with her in detail and discussed the natural history of lobular carcinoma in situ and themultifocal nature of LCIS. I recommend whole breast radiation therapy to a doseof 40 Gy in 15 fractions, we will plan on a cavity boost 10 Gy in 4 fractions due to the concern for positive skin margin. I will consider superficial electrons for the boost to allow for sufficient skin dose. Patient has met with medical oncology and understands the need for adjuvant endocrine therapy. Oncotype is also been sent and we will hold off on CT simulation until the results return. I provided a general overview of radiation treatment planning and delivery. We discussed the need for immobilization and CT simulation. Short and long-term side effects were reviewed in detail and his questions were answered. Her exam shows diffuse psoriasis as well as hidradenitis suppurativa. Patient is currently not on any Biologics. She was consented to receive care Patient was counseled at length regarding the risk of increased short and long- term toxicity toxicity seen with uncontrolled diabetes. She was counseled to work closely with her primary care physician to ensure blood sugars were normalized during her treatment course. She communicated her understanding. Regarding the uptake in the tonsils on PET, I suspect this is physiologic. Patient has been referred for ENT evaluation. I have reviewed her imaging at length and it appears the lung nodules have overall been stable since July 2021. The radiographic appearance is suggestive of an inflammatory, infectious process. I will discuss possible pulmonary vs biopsy referral with medical oncology. Patient's case will also be presented at tumor board HPI - Service Date/Time Date: 01/13/22 Time: 10:00 HPI: 66-year-old female with past medical history notable for an admission back in August 2021 for STEMI, diabetes, hypertension. Her oncologic history is as follows: September 29 2021 PET scan done to follow-up on pulmonary nodules. PET noted pleural nodules in the lung bases, left greater than right. They were similar toprior exam. They did show increased FDG activity with the most prominent being medial left lung base with a maximum SUV of 5.5. These are of uncertain etiology. There was subtle increased FDG uptake in the left breast. Mammogram was recommended. November 04, 2021 diagnostic mammo showed a 1.7 cm focal asymmetry in the lateralaspect of the left breast 8 cm from the nipple. 2:00, upper outer quadrant position. There were accompanying clustered microcalcifications suspicious for malignancy. Breast ultrasound confirmed a 2.2 cm lesion hypoechoic with posterior shadowing and angulated margins with surrounding architectural distortion. December 09, 2021 patient underwent left breast ultrasound-guided biopsy. Pathology showed invasive lobular carcinoma, grade 2 largest invasive focus was 9 mm. There was LCIS with associated microcalcifications. ER positive IA negative HER-2 negative by FISH. December 28, 2021 patient underwent left breast lumpectomy with pathology confirming invasive lobular carcinoma, grade 2, 2.4 cm in size. There is associated LCIS, nuclear grade 1-2, with focal central necrosis and associated microcalcifications. The lateral margin is focally positive for invasive carcinoma. pT2N0 4 lymph nodes were negative. There was no LVSI. No skin present in the sample. January 06, 2022 patient met with surgery to review pathology. Her surgeon explained that there was no more lateral border to remove. That any lateral border would be the skin. Since the pathology was noted to be focally positive was not deemed necessary to resect the skin. She was offered aspiration of the seroma however she declined. Today patient feels she is recovering well from her surgery. Her past medical history is notable for rheumatoid arthritis as well as psoriasis. She states her blood sugars are fairly well controlled right now. She has met with medicaloncology and understands the need for Oncotype DX as well as antihormonal therapy. [facility] - Medical History Medical History: Medical History (Last Reviewed 01/13/22 @ 08:20 by Mary Arreola) Breast cancer, left CAD (coronary artery disease) Diabetes type [address] of [address] elevation myocardial infarction (STEMI) 08/2021 HTN (hypertension) Hypothyroid Ischemic cardiomyopathy Mixed hyperlipidemia Psoriasis Pulmonary nodule Rheumatoid arthritis - Surgical History Surgical History: Surgical History (Last Reviewed 01/13/22 @ 08:20 by Mary Arreola) History of open reduction and internal fixation (ORIF) procedure left ankle Hx of arthroscopic knee surgery bilateral Stented coronary artery x 2 (08/23/21) - Family History Family History: Family History (Last Reviewed 01/13/22 @ 08:20 by Mary Arreola) Brother Stroke Mother History of heart surgery Father Accidental Brother CAD (coronary artery disease) Sister CAD (coronary artery disease) - Social History Smoking Status: Never smoker Substance Use Type: Marijuana Substance Abuse Comment: marijuana edible approx 2 wks ago for nausea, one time only & from dispensa Social History Comments: grandson - age 21 Home Medications & Allergies Allergies No Known Allergies Allergy (Verified 01/13/22 08:18) Home Medications leflunomide 20 mg tablet 20 mg PO DAILY 08/23/21 [History Confirmed 01/13/22] levothyroxine 112 mcg tablet (Synthroid) 112 mcg PO DAILY 08/23/21 [History Confirmed 01/13/22] oxycodone-acetaminophen 5 mg-325 mg tablet (Percocet) 1 tab PO TID PRN 08/23/21 [History Confirmed 01/13/22] insulin aspar prot-insulin aspart 100 unit/mL (70-30) subcutaneous pen (Novolog Mix 70-30FlexPen U-100) 15 unit SUBCUT QPM 08/26/21 [History Confirmed 01/13/22] insulin aspar prot-insulin aspart 100 unit/mL (70-30) subcutaneous pen (Novolog Mix 70-30FlexPen U-100) 34 unit SUBCUT QAM 08/26/21 [History Confirmed 01/13/22] nitroglycerin 0.4 mg sublingual tablet 0.4 mg SUBLINGUAL Q5MIN.X3 PRN 30 Days #25 tab 08/27/21 [Rx Confirmed 01/13/22] aspirin 81 mg tablet,delayed release 81 mg PO DAILY 12/14/21 [History Confirmed 01/13/22] atorvastatin 40 mg tablet 80 mg PO QHS 12/14/21 [History Confirmed 01/13/22] carvedilol 12.5 mg tablet 12.5 mg PO BID 12/14/21 [History Confirmed 01/13/22] clopidogrel 75 mg tablet 75 mg PO QAM 12/14/21 [History Confirmed 01/13/22] hydroxychloroquine 200 mg tablet 200 mg PO QAM 12/14/21 [History Confirmed 01/13/22] prednisone 5 mg tablet 5 mg PO DAILY PRN 12/14/21 [History Confirmed 01/13/22] sacubitril 49 mg-valsartan 51 mg tablet (Entresto) 1 tab PO BID 12/14/21 [History Confirmed 01/13/22] ibuprofen 600 mg tablet 600 mg PO Q4-6H PRN 10 Days #20 tab 12/28/21 [Rx Confirmed 01/13/22] insulin degludec 100 unit/mL (3 mL) subcutaneous pen (Tresiba FlexTouch U-100 insulin) 10 unit SUBCUT DAILY 01/10/22 [History Confirmed 01/13/22] spironolactone 25 mg tablet 25 mg PO DAILY 01/10/22 [History Confirmed 01/13/22] Subjective ROS: I reviewed the 12-point Review of Systems with the patient as per our standard questionnaire. Objective Pain: 0/10 Karnofsky Performance Scale: 90%: Can perform normal activity, minor signs of disease Physical Exam: Physical exam: General: Alert and oriented female, no acute distress. HEENT: Normocephalic, extraocular movements intact Chest: Normal work of breathing on room air Breast: Examination of the left breast shows left upper outer quadrant incision to be healing well. Left axillary incision is also healing with no concern for infection. There is a large approximately 6 cm palpable axillary seroma. It isnontender. Lymph: Exam negative for bilateral supraclavicular cervical or axillary lymphadenopathy. Exam limited by body habitus. Examination of bilateral axillashows hidradenitis suppurativa. Contralateral breast within normal limits. Abdomen: Nonacute MSK: Extremities within normal limits Skin: Exam shows diffuse psoriatic papules along the chest bilateral breast and abdomen. Dictated By: Della Louis MD DD/ [id number] Signed By: <Electronically signed by Della Louis MD> 01/13/22 1004 [facility] Work Phone: Chief complaint Narrative - Reported* Patient is a 65-year-old female who returns for transitional care management office visit followingrecent large inferior STEMI with extensive AngioJet mechanical thrombectomy and stenting of the entire proximal through mid and distal RCA x2 large 4 mm drug-eluting stents with prolonged no reflow phenomenon, and initially evidence of severe LV dysfunction. * Post operatively she had a somewhat judy course with hypotension responding to fluids for presumedcomponent of RV infarction. Her initial ejection fraction by angiography was 35% however by echo was 40 to 45% 1 day later. (I am suspect in regards to the interpretation of her ejection fraction by echo). * Currently she has significant exertional dyspnea even resting dyspnea which I believe is a component of her side effect of Brilinta as well as mild congestive heart failure with evidence of crackles on today's exam. * She was not tolerant to afterload reduction therapies or carvedilol and therefore held off on thesemedications at discharge last week. * Her underlying comorbidities continue to include diabetes mellitus, rheumatoid arthritis, morbid obesity. * During her hospital stay she had a significant rheumatoid arthritis flare that we have tempered with colchicine, and interestingly after 1 day of colchicine her hemodynamics, pain, and blood pressureimproved dramatically even ECGs normalized very nicely. * Recommendations we will initiate Entresto 24/26 twice daily, carvedilol 6.25 twice daily, because of evidence of crackles/rales on exam today will initiate furosemide 20 mg daily for the next 2 weekshave her follow-up with nurse practitioner within the next 2 weeks and then myself within 3 to 4 months, and proceed with cardiac rehab locally. We will also reassess left ventricular function at the6-week vito by echo. * If she is intolerant to Entresto, we can use either lower dose ARB or [facility] [employer] DO Work Phone: Chief complaint Narrative - Reported* Patient is a 65-year-old female who returns for transitional care management office visit followingrecent large inferior STEMI with extensive AngioJet mechanical thrombectomy and stenting of the entire proximal through mid and distal RCA x2 large 4 mm drug-eluting stents with prolonged no reflow phenomenon, and initially evidence of severe LV dysfunction. * Post operatively she had a somewhat judy course with hypotension responding to fluids for presumedcomponent of RV infarction. Her initial ejection fraction by angiography was 35% however by echo was 40 to 45% 1 day later. (I am suspect in regards to the interpretation of her ejection fraction by echo). * Currently she has significant exertional dyspnea even resting dyspnea which I believe is a component of her side effect of Brilinta as well as mild congestive heart failure with evidence of crackles on today's exam. * She was not tolerant to afterload reduction therapies or carvedilol and therefore held off on thesemedications at discharge last week. * Her underlying comorbidities continue to include diabetes mellitus, rheumatoid arthritis, morbid obesity. * During her hospital stay she had a significant rheumatoid arthritis flare that we have tempered with colchicine, and interestingly after 1 day of colchicine her hemodynamics, pain, and blood pressureimproved dramatically even ECGs normalized very nicely. * Recommendations we will initiate Entresto 24/26 twice daily, carvedilol 6.25 twice daily, because of evidence of crackles/rales on exam today will initiate furosemide 20 mg daily for the next 2 weekshave her follow-up with nurse practitioner within the next 2 weeks and then myself within 3 to 4 months, and proceed with cardiac rehab locally. We will also reassess left ventricular function at the6-week vito by echo. * If she is intolerant to Entresto, we can use either lower dose ARB or HAYLEE [facility] [employer] Work Phone: Chief complaint Narrative - Reported* Patient is a 65-year-old female who returns for transitional care management office visit followingrecent large inferior STEMI with extensive AngioJet mechanical thrombectomy and stenting of the entire proximal through mid and distal RCA x2 large 4 mm drug-eluting stents with prolonged no reflow phenomenon, and initially evidence of severe LV dysfunction. * Post operatively she had a somewhat judy course with hypotension responding to fluids for presumedcomponent of RV infarction. Her initial ejection fraction by angiography was 35% however by echo was 40 to 45% 1 day later. (I am suspect in regards to the interpretation of her ejection fraction by echo). * Currently she has significant exertional dyspnea even resting dyspnea which I believe is a component of her side effect of Brilinta as well as mild congestive heart failure with evidence of crackles on today's exam. * She was not tolerant to afterload reduction therapies or carvedilol and therefore held off on thesemedications at discharge last week. * Her underlying comorbidities continue to include diabetes mellitus, rheumatoid arthritis, morbid obesity. * During her hospital stay she had a significant rheumatoid arthritis flare that we have tempered with colchicine, and interestingly after 1 day of colchicine her hemodynamics, pain, and blood pressureimproved dramatically even ECGs normalized very nicely. * Recommendations we will initiate Entresto 24/26 twice daily, carvedilol 6.25 twice daily, because of evidence of crackles/rales on exam today will initiate furosemide 20 mg daily for the next 2 weekshave her follow-up with nurse practitioner within the next 2 weeks and then myself within 3 to 4 months, and proceed with cardiac rehab locally. We will also reassess left ventricular function at the6-week vito by echo. * If she is intolerant to Entresto, we can use either lower dose ARB or HAYLEE [facility] Work Phone: Evaluation noteNo assessment information available [facility] Work Phone: Evaluation note* Diagnosis Onset Date Resolution Status Breast cancer, left breast a cute ST elevation (STEMI) myocardial infarction acute Abnormal positron emission t omography (PET) scan of head chronic [id number] chronic Pulmonary nodules/lesions, multiple chronic [facility] Work Phone: evaluation note* Diagnosis Onset Date Resolution Status Breast cancer, left breast a cute Abnormal positron emission t omography (PET) scan of head chronic [id number] chronic Osteopenia chronic Pulmonary nodules/lesions, multiple chronic ST elevation (STEMI) myocardial infarction chronic Use of aromatase inhibitors chronic [facility] Work Phone: evaluation note* Diagnosis Onset Date Resolution Status Breast cancer, left breast a cute Abnormal positron emission t omography (PET) scan of head chronic [id number] chronic Osteopenia chronic Pulmonary nodules/lesions, multiple chronic Rheumatoid arthritis chronic Skin candidiasis chronic ST elevation (STEMI) myocardial infarction chronic Use of aromatase inhibitors chronic [facility] Work Phone: Evaluation note* Diagnosis Coronary artery disease involving inaja coronary artery of inaja heart without angina pectoris History of ST elevation myocardial infarction (STEMI) Primary hypertension Unspecified essential hypertension Ischemic cardiomyopathy Other specified forms of chronic ischemic heart disease Mixed hyperlipidemia Type 2 diabetes mellitus with other specified complication, unspecified whether detention insulin use ([facility]) Class 3 severe obesity due to excess calories with serious comorbidity and body mass index (BMI) of 40.0 to 44.9 in adult ([facility]) Rheumatoid arthritis, involving unspecified site, unspecified whether rheumatoid factor present ([facility]) S/P right coronary artery (RCA) stent placement documented in this encounter [facility] Work Phone: History of Present illness Narrative* The patient presents with ischemic heart failure with reduced ejection fraction. The patient's lastLV ejection fraction was 35-40%. The patient is NYHA functional Class III. This is stage C heart failure. She has no significant interval events. * Symptoms: improved lower extremity edema, resolved dyspnea on exertion, stable fatigue, stable exercise intolerance, denies orthopnea and denies paroxysmal nocturnal dyspnea. Associated symptoms include recent 17 pounds weight loss. * Home Monitoring: The patient checks her weight regularly. Weight control has been good. * Medications: the patient is adherent with her medication regimen. She denies medication side effects. Due For: electrolytes. -[facility] DO Work Phone: Hospital Discharge instructionsAmbulatory Orders* Obtain Medical Records From: Time Frame: 1 Day, Location: Determined By Patient * Place on Tumor Board Time Frame: 1 Week, Location: Determined By Patient [facility] Work Phone: Progress note Author Floresita Gonzalez [facility] October 13, 2022 9:14am Note Date/Time October 13, 2022 8:45am [facility] [place] [address] Hem/Onc Follow Up Note - OP Signed Patient: Chucky Dunlap MR#: [id number] : 1955 Acct:[id number] Age/Sex: 66 / F Type: REG RCR Copies to: DO Salty James, DO Zoe Latif, DO Doroteo Samayoa MD~ Subjective Date/Time of Service: Date of Service: 10/13/2022 Time of Service: 08:45 Chief Complaint: Patient is here today for a 6 month follow up visit for breast cancer HPI: 10/13/2022: W transferred her care from Dr. Patel to Dr. Latif of pulmonary medicine at [place]. Her most recent follow-up with him after CT of the chest showed regression of prior pulmonary nodules. These are felt to be due to rheumatoid nodules. She will continue follow-up with him as directed. She remains on the same regimen for rheumatoid arthritis with Dr. Samayoa who she saw about 6 weeks ago. Otherwise she continues to tolerate endocrine therapy well with anastrozole 1 mg daily. She denies any hot flashes, myalgias, dyspepsia, or rashes. No significant pain or skin changes over prior radiation site. She does have history of hidradenitis suppurativa and has a moist skin rash in her inframammary folds and we will add Nystop topical powder to her topical steroid. Next follow-up with me in 6 months or sooner as needed. She will have 1 year follow-up mammogram ordered by Dr. Gonzalez when she sees him next week and will continue to follow with him every 3 to 4 months. Moderate complexity visit over 30 minutes due to multiple comorbidities. 04/04/2022: Chucky is here for 1 month toxicity visit following initiation of adjuvant endocrine therapy with anastrozole. She denies any untoward side effects related to endocrine therapy, namely hot flashes, myalgias or arthralgias. She is mildly fatigued since completing radiation on 03/10/2022, but overall is doing well. She notes that she had subsequent follow-up with following PET/CT scan for pleural nodules that had increased FDG activity. The patient reports that she was going to undergo biopsy, however, the nodules appear to have decreased in size and biopsy was aborted. Dr. Das since coordinated longitudinal follow-up with Dr. Latif (pulmonology) to follow-up with serial CT scan. She denies any significant pain or changes in breast self exam. She follows closely with Dr. Gonzalez (will see next week) and will see radiation oncology today for 1 month skin recheck/follow up. 02/02/2022: Radha is here for follow-up of cancer type ID testing. This returned at low risk with recurrence score 19, 6% risk of distant recurrence at 9 years and less than 1% chemotherapy benefit. She underwent evaluation by Dr. Whiteside due to uptake within the right palatine tonsils on PET/CT, but no lesionswere seen and he has not requested any further follow-up. She has not had any follow-up with Dr. Patel for evaluation of pleural nodules that had increased FDG avidity. I contacted Dr. Patel today and we scheduled a subsequent PET/CT within the next week to determine if there was any interval change in size or FDG avidity of her pulmonary nodules and whether biopsy would proceed prior to planned adjuvant radiation therapy. She will have subsequent follow-up with after her PET/CT I will then coordinate when she may proceed to her radiation therapy. -- Since she is not a candidate for chemotherapy, we did discuss initiation of hormonal therapy with anastrozole 1 mg daily. This may be initiated following her radiation therapy, and subsequent follow-up with me will be after 1 month ofadjuvant anastrozole. We will coordinate her medical oncology follow-up after we determine the plan for work-up of the pulmonary nodules as noted above. Her most recent DEXA scan was performed February 12, 2021 at [facility] revealing baseline osteopenia/decreased bone density. This will be followed every 2 years while on aromatase inhibitor therapy. We also discussed other potential adverse effects of therapy including hot flashes, myalgias, dyspepsia, and uncommon rashes. PREVIOUS HISTORY: Original consult 01/13/2022 This is a 66-year-old lady with a recent complicated history. She notes that inAugu2020 she was diagnosed with pneumonia and had persistent chest wall pain therefore was referred for follow-up chest x-ray and subsequent CT. She was found nodules within the left lung base. Dr. Latif at [place] referred her to Dr. Patel of CT surgery for possible biopsy. Prior to this referral she reports having a myocardial infarction in August 2021 with placement of stentsand was placed on antiplatelet therapy, therefore Dr. Patel ordered a PET/CT which showed pleural nodules in the lung bases with increased FDG avidity, most prominently in the left lung base with SUV 5.5. She was also found to have uptake within right palatine tonsils with SUV 4.7 that may be reactive and she is scheduled to see Dr. Whiteside of ENT on 01/27/2022. A third finding was subtle increased FDG uptake in the left breast with SUV 3.0. Patient had no personal or family history of breast cancer and had no mammography for the last 20 years therefore she was sent for mammogram and ultrasound. She did not have any palpable masses, pain, or skin changes of the left breast. Left breast ultrasound on 11/04/2021 showed a 2.2 x 1.6 x 1.5 cm lesion taller more than wide at the 1 to 2 o'clock position 5 cm from the nipple. This correlated to 1.7 cm focal asymmetry on diagnostic mammography. Core needle biopsy was performed 11/24/2021 revealing invasive lobular carcinoma, Luckey histologic grade 2 (3+2+1 equal 6). 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 Estrogen receptor +95%, progesterone receptor -0%, HER-2/ortiz was equivocal by IHC but negative by FISH. She was referred to Dr. Gonzalez for left breast lumpectomy with sentinel lymph node biopsy. 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 Lateral margin was positive focally for invasive carcinoma however this was skin margin therefore reexcision is not indicated. Pathologic stage pT2 (sn)pN0 Mx. She has been sent here to evaluate for adjuvant therapy. She tolerated surgery well and has minimal pain at site of surgery. We discussed utilization of Oncotype DX due to estrogen receptor positive, HER-2 negative, lymph node negative breast cancer to determine if she is a candidate for chemotherapy for high risk disease or whether she should proceed to radiation therapy. I would also like to defer her follow-up until she is seen by ENT for abnormal uptake in the tonsil. I believe her changes in the lung maybe followed, although I will try to contact Dr. Patel and see if he recommends biopsy prior to receiving systemic therapy. She will follow-up with me in about3 weeks to review results of Oncotype DX and to determine further plan of therapy. 1. T2 N0 MX (2.4 cm, 4 lymph nodes negative) left breast cancer found incidentally on PET/CT. Pathology invasive lobular carcinoma, ER 95%, IA 0%, HER-2 nonamplified by FISH. 2. History of ST elevation myocardial infarction August 2021 with placement of stents in the mid and distal RCA with aspiration thrombectomy of PDA branch 3. Indeterminate pulmonary nodules in the lung bases, increased FDG avidity of left lung base nodule SUV 5. Repeat PET/CT ordered 02/02/2022 which will be followed up with Dr. Murry 4. Indeterminate right tonsillar pillar uptake, completed ENT evaluation reported as no concerning findings for malignancy. - Summary of Therapies Summary of Therapies: 1.) 12/28/2021: left breast lumpectomy with sentinel lymph node biopsy 2.) Oncotype DX which returned low risk, recurrence score 19. 3.) Completed adjuvant radiotherapy from 02/14/2022-03/10/2022: Left breast 4005 cGy 15 fractions over 18 elapsed days 02/14-03/04/2022, then 1000 cGy boost 4 fractions over 3 elapsed days 4.) Commenced adjuvant endocrine therapy with anastrozole 1 mg p.o. daily on 03/11/2022. Pulmonary nodules - followed by Dr. Latif with serial imaging -most recent CT scan was reported in about August 2022 with regression of prior nodules, favorbenign ROS Details: All systems reviewed & no additional complaints except as documented Subjective/ROS - Narrative: CONSTITUTIONAL: Negative for fatigue, negative for fever or night sweats. HEAD AND NECK: Negative for changes in hearing and vision. Negative for mouth ulcers, nasal congestion and nasal drainage. PULMONARY: Negative for chest pain, cough and dyspnea. CARDIOVASCULAR: Negative for claudication and irregular heartbeat/palpitations. GASTROINTESTINAL: Negative for abdominal pain, constipation, decreased appetite,diarrhea, nausea or vomiting. GENITOURINARY: Negative for dysuria and hematuria. ENDOCRINE: Negative for cold intolerance and heat intolerance. Breasts with mild hyperpigmentation in prior left breast radiation field, no masses CENTRAL NERVOUS SYSTEM: Negative for gait disturbance and headache. PSYCHIATRIC: Negative for anxiety or depression. DERMATOLOGICAL: Negative for pruritus and positive for inframammary rash. Negative for suspicious skin lesions. MUSCULOSKELETAL: Negative for back pain and bone/joint symptoms. HEMATOLOGICAL: Negative for bleeding and easy bruising. Negative for history of transfusion or thromboembolic disease ALLERGY: Negative for environmental allergies and food allergies. [facility] - History Attestation statement: The following information was validated with the patient. Source: Old Records Reviewed - Medical History Medical History: Medical History (Last Reviewed 10/13/22 @ 09:04 by Floresita Gonzalez MD) Breast cancer, left CAD (coronary artery disease) Diabetes type [address] of [address] elevation myocardial infarction (STEMI) 08/2021 HTN (hypertension) Hypothyroid Ischemic cardiomyopathy Mixed hyperlipidemia Psoriasis Pulmonary nodule Rheumatoid arthritis - Surgical History Surgical History: Surgical History (Last Reviewed 10/13/22 @ 09:04 by Floresita Gonzalez MD) History of open reduction and internal fixation (ORIF) procedure left ankle Hx of arthroscopic knee surgery bilateral Stented coronary artery x 2 (08/23/21) - Family History Family History: Family History (Last Reviewed 10/13/22 @ 09:04 by Floresita Gonzalez MD) Brother Stroke Mother History of heart surgery Father Accidental Brother CAD (coronary artery disease) Sister CAD (coronary artery disease) - Social History Smoking Status: Never smoker Substance Use Type: None Substance Abuse Comment: marijuana edible approx 2 wks ago for nausea, one time only & from dispensa Social History Comments: grandson - age 21 Home Medications & Allergies Allergies No Known Allergies Allergy (Verified 10/13/22 08:33) Home Medications leflunomide 20 mg tablet 20 mg PO DAILY RA 08/23/21 [History Confirmed 10/13/22] levothyroxine 112 mcg tablet (Synthroid) 112 mcg PO DAILY hypothyroidism 08/23/21 [History Confirmed 10/13/22] oxycodone-acetaminophen 5 mg-325 mg tablet (Percocet) 1 tab PO TID PRN Pain 08/23/21 [History Confirmed 10/13/22] insulin aspar prot-insulin aspart 100 unit/mL (70-30) subcutaneous pen (Novolog Mix 70-30FlexPen U-100) 15 unit subcut QPM diabetes 08/26/21 [History Confirmed 10/13/22] insulin aspar prot-insulin aspart 100 unit/mL (70-30) subcutaneous pen (Novolog Mix 70-30FlexPen U-100) 34 unit subcut QAM diabetes 08/26/21 [History Confirmed 10/13/22] nitroglycerin 0.4 mg sublingual tablet 0.4 mg sublingual Q5MIN.X3 PRN Chest Pain30 days #25 tabs 08/27/21 [Rx Confirmed 10/13/22] aspirin 81 mg tablet,delayed release 81 mg PO DAILY STEMI 12/14/21 [History Confirmed 10/13/22] atorvastatin 40 mg tablet 80 mg PO QHS hyperlipidemia 12/14/21 [History Confirmed 10/13/22] carvedilol 12.5 mg tablet 12.5 mg PO BID heart 12/14/21 [History Confirmed 10/13/22] clopidogrel 75 mg tablet 75 mg PO QAM anticoagulation 12/14/21 [History Confirmed 10/13/22] hydroxychloroquine 200 mg tablet 200 mg PO QAM RA 12/14/21 [History Confirmed 10/13/22] prednisone 5 mg tablet 5 mg PO DAILY PRN Pain 12/14/21 [History Confirmed 10/13/22] sacubitril 49 mg-valsartan 51 mg tablet (Entresto) 1 tab PO BID heart 12/14/21 [History Confirmed 10/13/22] ibuprofen 600 mg tablet 600 mg PO Q4-6H PRN pain 10 days #20 tabs 12/28/21 [Rx Confirmed 10/13/22] insulin degludec 100 unit/mL (3 mL) subcutaneous pen (Tresiba FlexTouch U-100 insulin) 60 unit subcut DAILY 01/10/22 [History Confirmed 10/13/22] spironolactone 25 mg tablet 25 mg PO DAILY 01/10/22 [History Confirmed 10/13/22] mometasone 0.1 % topical cream 1 applic topical DAILY #45 grams 02/02/22 [Rx Confirmed 10/13/22] anastrozole 1 mg tablet 1 mg PO DAILY 90 days #90 tabs 04/04/22 [Rx Confirmed 10/13/22] nystatin 100,000 unit/gram topical powder (Nystop) 1 applic topical BID #1 g 10/13/22 [Rx] Objective - Height/Weight Height/Weight: Height 5 ft 5 in Weight 106.7 kg - Vital Signs Vital Signs: 10/13/22 08:35 Temperature 97.8 F Pulse Rate [Left Brachial] 79 Respiratory Rate 16 Blood Pressure [Left Arm] 135/78 02 Sat by Pulse Oximetry 100 Oxygen Delivery Method Room Air Physical Exam Narrative: CONSTITUTIONAL: The patient is in no acute distress. HEENT: Oral mucosa is pink/moist; no lesions or exudate. BREAST EXAM: Right breast no masses or skin changes. Healed left upper outer quadrant breast incision, mild hyperpigmentation over left breast radiation field. No masses. Bilateral inferior mammary fold scaling maculopapular rash consistent with candidiasis. No axillary fullness or tenderness noted. LYMPHATIC: No palpable cervical, supraclavicular, axillary, or inguinal adenopathy. RESPIRATORY: Normal to inspection. Lungs clear to auscultation and percussion. No wheezing, rales, rhonchi or rubs. Normal effort. CARDIOVASCULAR: Regular rate and rhythm. No murmurs, gallops, or rubs. VASCULAR: Carotid, radial, femoral and pedal pulses present bilaterally. No bruits. ABDOMEN: Bowel sounds normoactive. Soft, nontender and non-distended. No hepatosplenomegaly. No masses. GENITOURINARY: No CVA tenderness. No suprapubic fullness or tenderness. No groinadenopathy. No evidence of hernias. INTEGUMENTARY: The skin is remarkable for bilateral inframammary mass. No axillary changes concerning for active hidradenitis suppurativa. No suspicious lesions. BACK / SPINE: The back is nontender. MUSCULOSKELETAL: Normal musculature, no joint deformities or abnormalities, normal range of motion for all four extremities. EXTREMITIES: No edema, cyanosis or clubbing. No Ariana sign. NEUROLOGICAL: Alert and oriented. Cranial nerves intact. No gross motor or sensory deficits. PSYCHIATRIC: No anxiety or evidence of depression. - ECOG Performance Status ECOG Score: 1 Results - Labs Labs: No recent labs for review - Impressions Outside CT imaging from [place] is being requested for her records. Followed by Dr. Latif. Assessment and Plan - TNM Staging Staging: T2 N0 MX (2.4 cm, 4 lymph nodes negative) left breast cancer found incidentally on PET/CT. Pathology invasive lobular carcinoma, ER 95%, IA 0%, HER-2 nonamplified by FISH. Oncotype DX returned low risk recurrence score 19 (1) Malignant neoplasm of upper-outer quadrant of left breast in female, estrogen receptor positive This is a 66-year-old lady with recent diagnosis of left upper outer quadrant invasive lobular carcinoma right breast, T2N0 after lumpectomy on 12/28/2021. Estrogen receptor 95%, progesterone receptor 0, HER-2/ortiz 0 by FISH. We discussed her pathology results and arranged Oncotype DX testing of her lumpectomy specimen. She has nodular lesions of the lungs which have been evaluated with pulmonary medicine and cardiothoracic surgery earlier this year prompting PET/CT which resulted in the diagnosis of her breast cancer. I contacted Dr. Patel of CT surgery to discuss further evaluation of these pulmonary nodules which may be inflammatory. It may be helpful to repeat her PET/CT to see if there is any progression of these areas suggesting more inflammatory process. She also has abnormalities of the right palatine tonsils on PET/CT and is being evaluated with ENT for nasopharyngoscopy in about 2 weeks. She also has a recent diagnosis of ST elevation myocardial infarction which may impact her suitability for further therapy based on her risk score (likely avoiding anthracyclines if higher risk). 02/02/2022: Follow-up to review Oncotype DX score 19, low risk recurrence score. Increased FDG avidity on PET/CT evaluated with nasopharyngoscopy which returned negative for malignancy. I contacted Dr. Patel to discuss follow-up PET/CT to determine status of her pulmonary nodules and whether biopsy is recommended prior to planned adjuvant radiation therapy. She will follow-up with CT surgerywithin 1 week of her PET/CT to determine whether she can proceed with radiation oncology. We also discussed her prior DEXA scan from January 2021 showing osteopenia which she will take calcium and vitamin D. She can proceed with anastrozole therapy 1 mg daily after she completes adjuvant radiation and will follow-up with me 1 month thereafter. 04/04/2022: Chucky is here for 1 month follow-up post initiation of adjuvant endocrine therapy with anastrozole 1 mg p.o. daily. She completed her course ofadjuvant radiation on 03/10/2022; and commenced anastrozole on 03/11/2022. The patient denies any significant or untoward side effects related to endocrine therapy thus far. She specifically denies any issues with headaches, increased blood pressure, chest pain, shortness of breath, myalgias/arthralgias, or hot flashes. She notes no significant changes on self breast exam. She is due to see radiation oncology today for 1 month skin check following completion of radiation. She continues to follow with Dr. Gonzalez every 3 months and is dueto see him next week. --Will fill anastrozole 1 mg p.o. daily with 90-day supply. Will alternate visits with surgery (she sees Dr. Gonzalez every 3 months); will see her in 6 months; sooner if new issues arise. Next mammogram due in Fall 2021. Next DEXA scan due February 2023. 10/13/2022: He is here for 6-month follow-up (also following every [address] Gonzalez). No evidence of recurrence on breast exam. She is tolerating anastrozole 1 mg daily without significant myalgias or hot flashes. Her 1 year follow-up mammogram may be ordered by Dr. Gonzalez when she sees himnext week. We will continue to follow every 6 months--she will be due for her next DEXA prior to follow-up in 6 months. Pulmonary nodules as noted below are favored to be rheumatoid and Dr. Latif has personally contacted me regarding ongoing follow-up of these nodules. We are requesting her outside [facility] for our records. Moderate complexity visit over 30 minutes. (2) Pulmonary nodules/lesions, multiple Bibasilar pulmonary nodules on PET/CT September 2021. - Repeat PET/CT done in January 2022; which showed increase in size. She has sinceseen both Dr. Patel and Dr. Latif. - She saw Dr. Latif on 03/21/2022 and most recent repeat CT scan showed decrease in size; therefore, biopsy was deferred. - Dr. Latif contacted me last month and noted that he feels these are more likely benign rheumatoid nodules and he will continue to follow with serial imaging at [facility]. (3) ST elevation (STEMI) myocardial infarction The patient had ST elevation HI with left heart catheterization August 2021 showing inferior STEMI. She had placement of distal RCA stent and mid RCA stentwith aspiration thrombectomy of the PDA branch. Continue follow-up with cardiology. (4) Osteopenia Baseline osteopenia noted on DEXA scan 03/14/2021. In February 2022 after completing radiation she started anastrozole 1 mg daily but should continue calcium with supplemental vitamin D twice daily. We ordered repeat DEXA scan due in February 2023. (5) Rheumatoid arthritis Chronic joint pain which is stable. No recent flare. Followed by Dr. Samayoa last seen about 6 weeks ago. (6) Skin candidiasis Chronic oral prednisone for RA with evidence of inframammary candidiasis. Treating with Nystop powder twice daily as needed to minimize infection. (7) Use of aromatase inhibitors Commenced adjuvant endocrine therapy with anastrozole 1 mg p.o. daily?started 03/11/2022. Plan 5 to 7 years. Well-tolerated with no side effects. - Chemo Plan Chemo Plan (Dose, Rate, Freq): Anastrozole 1 mg daily started February 2022. Continue for 5 to 7-year course. Goal of Treatment: Curative - Time with Patient Time Spent with Patient (Follow Up Visit): 35 minutes - Moderate complexity to address follow-up of pulmonary nodules, rheumatoid arthritis, and to review tolerance of AI therapy Coordination of Care & Counseling Time: Greater than 50% of time spent with patient was for coordination of care (as documented) and [id number] counseling of patient and/or family. Dictated By: Floresita Gonzalez MD DD/ 0845 Signed By: <Electronically signed by MD Floresita Gonzalez> 10/13/22 0914 [facility] Work Phone: Reason for referral (narrative)* Consultation (Routine) - Authorized Specialty Diagnoses / Procedures Referred By Contac t Referred To Contact Cardiology Diagnoses Coronary artery disease involving inaja coronary artery of inaja heart without angina pectoris Primary hypertension Ischemic cardiomyopathy Procedures Follow Up In Cardiology Luke Herrmann DO [address] [place] [address] 2, [address] [address] Luke Herrmann DO [address] [place] [address] 2, [address] [place] [address] Referral ID Status Reason Start Date Expiration Date V isits Requested Visits Authorized [id number] Authorized 08/10/2023 08/09/2024 1 1 [facility] Work Phone: Family History No Family History Records FoundUnknown Family Member Name Dates Details Heart problem: Mother, Broth er Status:Active Family history of hypertensi on: Mother(V17.49, Z82.49) Status:Active Family history of cerebrovas cular accident (CVA): Brother(V17.1, Z82.3) Status:Active Unknown Family Member Name Dates Details Heart problem: Mother, Broth er Status:Active Family history of hypertensi on: Mother(V17.49, Z82.49) Status:Active Family history of cerebrovas cular accident (CVA): Brother(V17.1, Z82.3) Status:Active Unknown Family Member Name Dates Details Heart problem: Mother, Broth er Status:Active Family history of hypertensi on: Mother(V17.49, Z82.49) Status:Active Family history of cerebrovas cular accident (CVA): Brother(V17.1, Z82.3) Status:Active Unknown Family Member Name Dates Details Family history of cerebrovas cular accident (CVA): Brother(V17.1, Z82.3) Status:Active Family history of hypertensi on: Mother(V17.49, Z82.49) Status:Active Heart problem: Mother, Broth er Status:Active Unknown Family Member Name Dates Details Heart problem: Mother, Broth er Status:Active Family history of hypertensi on: Mother(V17.49, Z82.49) Status:Active Family history of cerebrovas cular accident (CVA): Brother(V17.1, Z82.3) Status:Active Unknown Family Member Name Dates Details Family history of cerebrovas cular accident (CVA): Brother(V17.1, Z82.3) Status:Active Family history of hypertensi on: Mother(V17.49, Z82.49) Status:Active Heart problem: Mother, Broth er Status:Active Unknown Family Member Name Dates Details Heart problem: Mother, Broth er Status:Active Family history of hypertensi on: Mother(V17.49, Z82.49) Status:Active Family history of cerebrovas cular accident (CVA): Brother(V17.1, Z82.3) Status:Active Unknown Family Member Name Dates Details Heart problem: Mother, Broth er Status:Active Family history of hypertensi on: Mother(V17.49, Z82.49) Status:Active Family history of cerebrovas cular accident (CVA): Brother(V17.1, Z82.3) Status:Active Unknown Family Member Name Dates Details Heart problem: Mother, Broth er Status:Active Family history of hypertensi on: Mother(V17.49, Z82.49) Status:Active Family history of cerebrovas cular accident (CVA): Brother(V17.1, Z82.3) Status:Active Unknown Family Member Name Dates Details Heart problem: Mother, Broth er Status:Active Family history of hypertensi on: Mother(V17.49, Z82.49) Status:Active Family history of cerebrovas cular accident (CVA): Brother(V17.1, Z82.3) Status:Active Unknown Family Member Name Dates Details Heart problem: Mother, Broth er Status:Active Family history of hypertensi on: Mother(V17.49, Z82.49) Status:Active Family history of cerebrovas cular accident (CVA): Brother(V17.1, Z82.3) Status:Active Unknown Family Member Name Dates Details Family history of cerebrovas cular accident (CVA): Brother(V17.1, Z82.3) Status:Active Family history of hypertensi on: Mother(V17.49, Z82.49) Status:Active Heart problem: Mother, Broth er Status:Active Relationship Condition Age at Onset Recorded Date/T tae brother Cerebrovascular accident (CVA) Unknown Not Specified History of heart surgery Unknown father Accidental Unknown brother Coronary artery disease Unknown sister Coronary artery disease Unknown Unknown Family Member Name Dates Details Heart problem: Mother, Broth er Status:Active Family history of hypertensi on: Mother(V17.49, Z82.49) Status:Active Family history of cerebrovas cular accident (CVA): Brother(V17.1, Z82.3) Status:Active Unknown Family Member Name Dates Details Heart problem: Mother, Broth er Status:Active Family history of hypertensi on: Mother(V17.49, Z82.49) Status:Active Family history of cerebrovas cular accident (CVA): Brother(V17.1, Z82.3) Status:Active Unknown Family Member Name Dates Details Family history of cerebrovas cular accident (CVA): Brother(V17.1, Z82.3) Status:Active Family history of hypertensi on: Mother(V17.49, Z82.49) Status:Active Heart problem: Mother, Broth er Status:Active Unknown Family Member Name Dates Details Family history of cerebrovas cular accident (CVA): Brother(V17.1, Z82.3) Status:Active Family history of hypertensi on: Mother(V17.49, Z82.49) Status:Active Heart problem: Mother, Broth er Status:Active Unknown Family Member Name Dates Details Heart problem: Mother, Broth er Status:Active Family history of hypertensi on: Mother(V17.49, Z82.49) Status:Active Family history of cerebrovas cular accident (CVA): Brother(V17.1, Z82.3) Status:Active Unknown Family Member Name Dates Details Heart problem: Mother, Broth er Status:Active Family history of hypertensi on: Mother(V17.49, Z82.49) Status:Active Family history of cerebrovas cular accident (CVA): Brother(V17.1, Z82.3) Status:Active Unknown Family Member Name Dates Details Heart problem: Mother, Broth er Status:Active Family history of hypertensi on: Mother(V17.49, Z82.49) Status:Active Family history of cerebrovas cular accident (CVA): Brother(V17.1, Z82.3) Status:Active Unknown Family Member Name Dates Details Heart problem: Mother, Broth er Status:Active Family history of hypertensi on: Mother(V17.49, Z82.49) Status:Active Family history of cerebrovas cular accident (CVA): Brother(V17.1, Z82.3) Status:Active Unknown Family Member Name Dates Details Heart problem: Mother, Broth er Status:Active Family history of hypertensi on: Mother(V17.49, Z82.49) Status:Active Family history of cerebrovas cular accident (CVA): Brother(V17.1, Z82.3) Status:Active Unknown Family Member Name Dates Details Heart problem: Mother, Broth er Status:Active Family history of hypertensi on: Mother(V17.49, Z82.49) Status:Active Family history of cerebrovas cular accident (CVA): Brother(V17.1, Z82.3) Status:Active Chief Complaint * I am doing better than I was * CHUCKY DUNLAP is being seen for a 6 week follow-up of coronary artery disease and cardiomyopathy. * Patient is ambulatory with steady gait. * Last evaluated in clinic by Dr. Herrmann 2 weeks ago with the following medication changes: * Brilinta stopped and SOB has resolved * Compliant with Plavix * Added Entresto (has coverage till December), coreg and lasix for 2 weeks. * She has had 17 pound weight loss. Majority was ascites with early satiety and loss of appetite. * Compared to last cardiovascular evaluation, patient reports she is doing better. * Patient attends to own ADLs and functional ADLs. * Patient daily activity includes: started cardiac rehab last week. * Patient ambulate in from parking lot without concerns. * Patient denies change to exercise tolerance or functional capacity since last evaluation. * Prior Angina: chest/shoulder pain * Last NTG use: none * Current cardiovascular concerns: * None * No prior JEFF w/u Pt here today for BP check due to increase in Entresto and Carvedilol. Pt denies any complaints. Pthas taken medication as directed today.Pt here today for BP check due to increase in Entresto and Carvedilol. Pt denies any complaints. Pt has taken medication as directed today.* CHUCKY DUNLAP is being seen for a 2 week follow-up of. * Patient is a 65-year-old female who returns for follow-up and overall is doing well she has some exertional shortness of breath. She is performing cardiac rehab without any significant problems. She remains hypertensive today and repeat blood pressure check she is 152/80. * She sustained a very large inferior HI in August 2021 with extensive AngioJet thrombectomy and 2 large 4 mm drug-eluting stents placed through the proximal and distal RCA with prolonged no reflow phenomenon and initially ejection fraction of 30 to 35% that is now normalized by most recent echocard iogram. * She has underlying rheumatoid arthritis, hypertension, obesity, hyperlipidemia, accelerated hypertension is noted today. Ischemic cardiomyopathy that has essentially anatomically normalized aggressive afterload reduction therapy (mid dose Entresto). * Recommendations: We will increase her spironolactone to full 25 mg pill daily, recheck blood pressure, obtain labs and follow-up in 6 months * CHUCKY DUNLAP is being seen for a 6 month follow-up of. * 66-year-old female returns for annual follow-up and she is doing well from a cardiovascular standpoint. However, her rheumatoid arthritis seems to be worsening over time. She has a history of inferior HI in 2020, with primary AngioJet thrombectomy and stenting x2 large drug-eluting stents to the pro ximal distal RCA at that time additionally with severe LV dysfunction that normalized upon follow-up. * Her comorbidities are noted for rheumatoid arthritis, obesity, hypertension and hyperlipidemia * She remains an appropriate guideline directed medical therapies including. Its not been approximately 14 months since her intervention. We will keep her on her DAPT for the next 8 months, follow-up in 8 months with appropriate laboratories. 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 Summary Purpose Advance Directives No Advanced Directives Records Found Advance Directive Response Recorded Date/ Time Advance Directives No October 26, 2017 10:22am Advance Directive Response Recorded Date/ Time Advance Directives No October 26, 2017 9:22am Chief Complaint and Reason for Visit Chief Complaint n63.41 n63.42 mass Left Breast Cancer Left Breast Cancer Left Breast Cancer Chief Complaint n63.41 n63.42 mass Left Breast Cancer Left Breast Cancer Left Breast Cancer Breast Cancer Reason for Visit Breast cancer, left breast ST elevation (STEMI) myocardial infarction Abnormal positron emission tomography (PET) scan of head [id number] Pulmonary nodules/lesions, multiple Chief Complaint r91.8 Chief Complaint Breast Cancer Reason for Visit Breast cancer, left breast Abnormal positron emission tomography (PET) scan of head [id number] Osteopenia Pulmonary nodules/lesions, multiple ST elevation (STEMI) myocardial infarction Use of aromatase inhibitors Chief Complaint Breast Cancer Reason for Visit Breast cancer, left breast Abnormal positron emission tomography (PET) scan of head [id number] Osteopenia Pulmonary nodules/lesions, multiple Rheumatoid arthritis Skin candidiasis ST elevation (STEMI) myocardial infarction Use of aromatase inhibitors Additional Source Comments INFORMATION SOURCE (unrecogn ized section and content) DATE CREATED AUTHOR 10/06/2021 [facility] DATE CREATED AUTHOR AUTHOR'S ORGANIZ ATION 10/29/2021 [facility] DATE CREATED AUTHOR AUTHOR'S ORGANIZ ATION 11/14/2022 [facility] DATE CREATED AUTHOR AUTHOR'S ORGANIZ ATION 06/28/2023 [facility] DATE CREATED AUTHOR AUTHOR'S ORGANIZ ATION 08/13/2023 [facility] DATE CREATED AUTHOR AUTHOR'S ORGANIZ ATION 10/26/2023 [facility] DATE CREATED AUTHOR AUTHOR'S ORGANIZ ATION 11/02/2023 [facility] l Care Teams (unrecognized sec tion and content) Team Status: Inactive Member Role Status Dates Reese House , DO Primary Care Provider Active Salty Gonzalez , DO Attending Provider Active Team Status: Inactive Member Role Status Dates Reese Nixon , DO Primary Care Provider Active Marcin Patel MD Attending Provider Active Team Status: Active Member Role Status Dates Reese Nixon , DO Primary Care Provider Active Team Status: Active Member Role Status Dates Reese Nixon , DO Primary Care Provider Active Salty Gonzalez , DO Referring Provider Active Floresita Gonzalez MD Attending Provider Active Trial Justice Relationship Specialty Start Date End Date Reese Nixon DO [address] [place] [address] PCP - General 10/16/99 Goals (unrecognized section and content) Goals may be documented in a n alternate sectionGoals may be documented in an alternate sectionGoals may be documented in an alternate sectionGoals may be documented in an alternate sectionGoals may be documented in an alternate section Reason for Visit (unrecogniz ed section and content) Reason Comments Follow-up 8m FOR RECORDS PERTAINING TO PATIENTS WHO ARE OR HAVE BEEN ENROLLED IN A CHEMICAL DEPENDENCY/SUBSTANCEABUSE PROGRAM, SOME INFORMATION MAY BE OMITTED. This clinical summary was aggregated from multiple sources. Caution should be exercised in using it in the provision of clinical care. This summary normalizes information from multiple sources, and as a consequence, information in this document may materially change the coding, format and clinical context of patient data. In addition, data may be omitted in some cases. CLINICAL DECISIONS SHOULD BE BASED ON THE PRIMARY CLINICAL RECORDS. [employer] provides no warranty or guarantee of the accuracy or completeness of information in this document.
[2023-11-02 12:35] LABS: Basophils Absolute Auto 0.1 10^3/uL (0.0-0.1); Basophils Percent Auto 0.7 % (0.2-2.0); Eosinophils Absolute Auto 0.3 10^3/uL (0.0-0.7); Eosinophils Percent Auto 3.8 % (0.9-7.0); Hematocrit 36.7 % (36.0-48.0); Hemoglobin 11.6 g/dL (12.0-16.0); Immature Granulocytes Abs Auto 0.02 10^3/uL (0.00-0.03); Immature Granulocytes Pct Auto 0.3 % (0.0-0.5); Lymphocytes Absolute Auto 1.4 10^3/uL (1.2-3.8); Lymphocytes Percent Auto 19.7 % (20.5-60.0); Mean Corpuscular HGB Conc 31.6 g/dL (29.9-35.2); Mean Corpuscular Hemoglobin 31.2 pg (26.7-34.0); Mean Corpuscular Volume 98.7 fL (81.0-99.0); Mean Platelet Volume 11.6 fL (9.5-13.5); Monocytes Absolute Auto 0.3 10^3/uL (0.3-0.8); Monocytes Percent Auto 3.8 % (1.7-12.0); Neutrophils Absolute Auto 5.1 10^3/uL (1.4-6.5); Neutrophils Percent Auto 71.7 % (43.0-75.0); Platelet Count 263 10^3/uL (150-450); Red Blood Count 3.72 10^6/uL (4.20-5.40); Red Cell Distribution Width 16.2 % (11.0-15.0); White Blood Count 7.2 10^3/uL (4.0-11.0)
[2023-11-02 12:43] LABS: Erythrocyte Sedimentation Rate 96 mm/hr (<=30)
[2023-11-02 13:25] LABS: Alanine Aminotransferase 24 U/L (14-59); Albumin Level 3.1 g/dL (3.4-5.0); Estimated GFR (African America 54 (>=60); Estimated GFR (Non-African Ame 45 (>=60)
[2023-11-02 13:30] LABS: C Reactive Protein 1.35 mg/dL (<=0.50)
== END 2023-11-02 12:13 | disposition home or self-care (01) ==
LOC: LAB 12:12
PROVIDERS: PCP Family Medicine
DX: E03.9 Hypothyroidism, unspecified (principal); E11.9 Type 2 diabetes mellitus without complications; M06.9 Rheumatoid arthritis, unspecified; C50.912 Malignant neoplasm of unspecified site of left female breast; M05.9 Rheumatoid arthritis with rheumatoid factor, unspecified
CPT/HCPCS: 36415; 82042; 82565; 84436; 84443; 84460; 85025; 85652; 86140

== ENCOUNTER 2023-11-02 12:37 | Outpatient (OUT) | payer MEDICARE, OTHER, SELFPAY ==
--- OUTSIDE RECORDS SUMMARY | 2023-11-02 12:40 | XMS_ITS | CCD ---
Author Name Unknown Address [address] [place] [address] Organization [facility] Care Team Providers Care Crew Leader/Control Room Operator Name Role Phone Hussain Reese Good Unavailable Unavailable Unavailable DO Reese Nixon Primary Care Provider MD Marcin Patel Attending Provider DO Salty Gonzalez Attending Provider [phone] DO Salty Gonzalez Referring Provider [phone] MD Floresita Gonzalez Attending Provider DO Reese Nixon Primary Care Provider MD Marcin Patel Attending Provider DO Reese Nixon Primary Care Provider DO [...] Referring Provider MD Floresita Gonzalez Attending Provider [phone] Hussain, Dr. Reese Verduzco [facility] Lisava dora Herrmann, Dr. Luke Lloyd Attending Sheila Herrmann, Dr. Luke Lloyd Referring Sheila Nixon, Dr. Reese Verduzco [facility] Lisava dora Herrmann, Dr. Luke Lloyd Attending DO Reese Martinez Primary Care Provider [phone] DO Salty Gonzalez Referring Provider MD Floresita Gonzalez Attending Provider [place] Reese KELLER Primary Care Provider LUKE HERRMANN Attending Unavailable HUSSAIN, REESE VERDUZCO Primary Care Unavailab le Hussain, DO Leigh Primary Care Provider [phone] DO Salty Gonzalez Referring Provider MD Floresita Gonzalez Attending Provider Reese Nixon Primary Care Unavailable Salty Gonzalez [...] (5 sources) Prophylactic aromatase inhibitors given; Translations: [nursing home (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 aromatase inhibitors] 02-03-2022 Episodic Other aftercare (4 sources) 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 (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 aromatase inhibitors; Translations: [Use of aromatase inhibitors] 10-13-2022 Episodic Other aftercare (1 source) Other 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 (current) drug therapy; Translations: [OTH [facility] CURRENT DRUG THERAPY] Onset: 11-14-2022 Episodic Other [...] Substances Agreem entson 11-01-2023 Controlled Substances Agreements [id number] 21#1.00OTGTIFF [facility] Outside Recordson 10-31-2023 Outside Records [id number] [address] [place] [address] Outside Recordson 10-04-2023 Outside Records [id number] [address] Outside Recordson 09-19-2023 Outside Records [id number] [address] [place] [address] Outside Recordson 08-30-2023 Outside Records [id number] [address] Patient Provided Health Data on 08-03-2023 Patient Provided Health Data [id number] [address] Patient Handouton 07-14-2023 Patient Handout [id number] [address] MM diagnostic mammo BI w/CAD on 11-30-2022 MM diagnostic mammo BI w/CAD [facility] [place] [address] Mammography Report Signed Patient: Chucky Dunlap MR#: [id number] : 1955 Acct:[id number] Age/Sex: 66 / F ADM Date: 11/30/22 Loc: [place] Room: Type: [facility] Attending Dr: Salty Gonzalez DO Copies to: [...] Oly Howe M.D.11/30/2022 3:14 PM Dictation Location: [facility] Transcribed By: [facility] 11/30/22 1514 Dictated By: Oly Howe MD 11/30/22 1451 Signed By: 11/30/22 1514 [facility] CBC AUTO DIFFon 11-12-2022 BASO # 0.1 103/ul Normal 0.0-0.1 [facility] Comment on above: Performed By: #### C BC #### [facility] [address] [place] [address] Dr. Jessica Saravia Basophils/100 WBC (Bld) 1.4 % Normal 0.2-2.0 [facility] Comment on above: Performed By: #### C BC #### [facility] [address] [address] [address] Jessica Saravia EO # 0.4 103/ul Normal 0.0-0.7 [facility] Comment on above: Performed By: #### C BC #### [facility] [address] [place] [address] Dr. Jessica Saravia Eosinophils/100 WBC (Bld) 6.1 % Normal 0.9-7.0 [facility] Comment on above: Performed By: #### C BC #### [facility] [address] [place] [address] Dr. Jessica Saravia Erythrocyte distribution width (RBC) [Ratio] 14.9 % Normal 11.0-15.0 [facility] Comment on above: Performed By: #### C BC #### [facility] [address] [place] [address] Dr. Jessica Saravia Hematocrit (Bld) [Volume fraction] 34.7 % Critically low 36.0-48.0 [facility] Comment on above: Performed By: #### C BC #### [facility] [address] [place] [address] Dr. Jessica Saravia Hemoglobin (Bld) [Mass/Vol] 11.3 g/dL Critically low 12.0-16.0 [facility] Comment on above: Performed By: #### C BC #### [facility] [address] [place] [address] Dr. Jessica Saravia IG # 0.03 10e3/ul Normal 0.00-0.03 [facility] Comment on above: Performed By: #### C BC #### [facility] [address] [place] [address] Dr. Jessica Saravia IG % 0.4 % Normal 0.0-0.5 [facility] Comment on above: Performed By: #### C BC #### [facility] [address] [place] [address] Dr. Jessica Saravia LYMPH # 1.4 103/ul Normal 1.2-3.8 [facility] Comment on above: Performed By: #### C BC #### [facility] [address] [place] [address] Dr. Jessica Saravia Lymphocytes/100 WBC (Bld) 20.4 % Critically low 20.5-60.0 [facility] Comment on above: Performed By: #### C BC #### [facility] [address] [place] [address] Dr. Jessica Saravia MANUAL DIFF REQ NO Normal [facility] Comment on above: Performed By: #### C BC #### [facility] [address] [place], [place] [id number] Dr. Jessica Saravia MCH (RBC) [Entitic mass] 27.5 pg Normal 26.7-34.0 [facility] Comment on above: Performed By: #### C BC #### [facility] [address] [place] [address] Dr. Jessica Saravia MCHC (RBC) [Mass/Vol] 32.6 g/dL Normal 29.9-35.2 [facility] Comment on above: Performed By: #### C BC #### [facility] [address] [place] [address] Dr. Jessica Saravia MCV (RBC) [Entitic vol] 84.4 fL Normal 81.0-99.0 [facility] Comment on above: Performed By: #### C BC #### [facility] [address] [place] [address] Dr. Jessica Saravia MONO # 0.8 103/ul Normal 0.3-0.8 [facility] Comment on above: Performed By: #### C BC #### [facility] [address] [place] [address] Dr. Jessica Saravia Monocytes/100 WBC (Bld) 12.1 % Critically high 1.7-12. 0 [facility] Comment on above: Performed By: #### C BC #### [facility] [address] [place] [address] Dr. Jessica Saravia NEUT # 4.1 103/ul Normal 1.4-6.5 [facility] Comment on above: Performed By: #### C BC #### [facility] [address] [place] [address] Dr. Jessica Saravia Neutrophils/100 WBC (Bld) 59.6 % Normal 43.0-75.0 [facility] Comment on above: Performed By: #### C BC #### [facility] [address] [place] [address] Dr. Jessica Saravia Platelet mean volume (Bld) [Entitic vol] 11.0 fL Normal 9.5-13.5 [facility] Comment on above: Performed By: #### C BC #### [facility] [address] [address] [address] Jessica Saravia PLT 236 103/ul Normal 150-450 [facility] Comment on above: Performed By: #### C BC #### [facility] [address] [place] [address] Dr. Jessica Saravia RBC 4.11 106/ul Critically low 4.20-5.40 [facility] Comment on above: Performed By: #### C BC #### [facility] [address] [address] [address] Jessica Saravia WBC 6.9 103/ul Normal 4.0-11.0 [facility] Comment on above: Performed By: #### C BC #### [facility] [address] [place] [address] Dr. Jessica Saravia CREATININEon 11-12-2022 Creatinine [Mass/Vol] 0.85 mg/dL Normal 0.55-1.02 [facility] Comment on above: Performed By: #### L IVER #### [facility] [address] [place] [address] Dr. Jessica Saravia EGFR-AF KYRGYZ >60 Normal >=60 [facility] Comment on above: Performed By: #### L IVER #### [facility] [address] [place] [address] Dr. Jessica Saravia EGFR-NON AF KYRGYZ >60 Normal >=60 [facility] Comment on above: Performed By: #### L IVER #### [facility] [address] [place] [address] Dr. Jessica Saravia LIPID PROFILEon 11-12-2022 CHOL-HDL RATIO NORM SEE BELOW Normal [facility] Comment on above: Result Comment: 3.3 - 4.4 LOW RISK 4.4 - 7.1 AVERAGE RISK 7.1 - 11.0 MODERATE RISK >11.0 HIGH RISK Performed By: #### C BC #### [facility] [address] [place] [address] Dr. Jessica Saravia Cholesterol [Mass/Vol] 171 mg/dL Normal <=200 [facility] Comment on above: Performed By: #### C BC #### [facility] [address] [place], [place] [address] Dr. Jessica Saravia Cholesterol in HDL [Mass/Vol] 33 mg/dL Critically low 40-60 [facility] Comment on above: Performed By: #### C BC #### [facility] [address] [place], [place] [address] Dr. Jessica Saravia Cholesterol in LDL [Mass/Vol] 108.2 mg/dL Normal [facility] Comment on above: Performed By: #### C BC #### [facility] [address] [address] [address] Jessica Saravia Cholesterol.total/Cindy sterol in HDL [Mass ratio] 5.2 {ratio} Normal [facility] Comment on above: Performed By: #### C BC #### [facility] [address] [address] [address] Jessica Saravia HDL NORMAL > or = 60 mg/dl - LOW CARDIOVASCULAR RISK <40 mg/dl - HIGH CARDIOVASCULAR RISK Normal [facility] Comment on above: Performed By: #### C BC #### [facility] [address] [address] [address] Jessica Saravia LDL CALC NORMAL SEE BELOW Normal [facility] Comment on above: Result Comment: <100 mg/dl OPTIMAL 100 - 129 mg/dl NEAR OR ABOVE OPTIMAL 130 - 159 mg/dl BORDERLINE HIGH 160 - 189 mg/dl HIGH >190 mg/dl VERY HIGH Performed By: #### C BC #### [facility] [address] [address] [address] Jessica Saravia Triglyceride [Mass/Vol] 149 mg/dL Normal <=150 [facility] Comment on above: Performed By: #### C BC #### [facility] [address] [address] [address] Jessica Saravia VLDL CALC 29.8 mg/dL Normal [facility] Comment on above: Performed By: #### C BC #### [facility] [address] [address] [address] Jessica Saravia LIVER PROFILEon 11-12-2022 Albumin [Mass/Vol] 2.8 g/dL Critically low 3.4-5.0 [facility] e [facility] Comment on above: Performed By: #### L IVER #### [facility] [address] [address] [address] Jessica Saravia Albumin/Globulin [Mass ratio] 0.7 {ratio} Normal [facility] Comment on above: Performed By: #### L IVER #### [facility] [address] [address] [address] Jessica Saravia ALP [Catalytic activity/Vol] 159 U/L Critically high 46-116 [facility] Comment on above: Performed By: #### L IVER #### [facility] [address] [address] [address] Jessica Saravia ALT [Catalytic activity/Vol] 37 U/L Normal 14-59 [facility] Comment on above: Performed By: #### L IVER #### [facility] [address] [address] [address] Jessica Saravia AST [Catalytic activity/Vol] 24 U/L Normal 15-37 [facility] Comment on above: Performed By: #### L IVER #### [facility] [address] [address] [address] Jessica Saravia BILI, CONJUGATED 0.1 mg/dL Normal 0.0-0.2 [facility] Comment on above: Performed By: #### L IVER #### [facility] [address] [address] [address] Jessica Saravia Bilirubin [Mass/Vol] 0.4 mg/dL Normal 0.2-1.0 [facility] Comment on above: Performed By: #### L IVER #### [facility] [address] [address] [address] Jessica Saravia Globulin (S) [Mass/Vol] 4.2 g/dL Normal T [facility] Comment on above: Performed By: #### L IVER #### [facility] [address] [address] [address] Jessica Saravia Protein [Mass/Vol] 7.0 g/dL Normal 6.4-8.2 [facility] Comment on above: Performed By: #### L IVER #### [facility] [address] [place], [place] [address] Dr. Jessica Saravia SED RATE PEARLANDERGRENon 2022 SED RATE 80 mm/hr Critically high <=30 [facility] Comment on above: Performed By: #### C BC #### [facility] [address] [address] [address] Jessica Saravia Tobacco Screening.on 023 Adult depression screening assessment No -[facility] 250 DO Work Phone: Fall risk assessment a) No falls within the last year [facility] 250 DO Work Phone: Tobacco use status [facility] b) No [facility] 250 DO Work Phone: CT CHEST WO [...] ISAAC JONES Date: 2022-08-30 09:15 Normal [facility] CT CHEST WO CONon 06-24-2022 CT CHEST [...] and mammography follow-up is recommended. Normal [facility] CBC AUTO DIFFon 06-16-2022 BASO # 0.1 103/ul Normal 0.0-0.1 [facility] Comment on above: Performed By: #### C BC #### [facility] [address] [address] [address] Jessica Saravia Basophils/100 WBC (Bld) 1.0 % Normal 0.2-2.0 [facility] Comment on above: Performed By: #### C BC #### [facility] [address] [place] [address] Dr. Jessica Saravia EO # 0.4 103/ul Normal 0.0-0.7 [facility] Comment on above: Performed By: #### C BC #### [facility] [address] [place] [address] Dr. Jessica Saravia Eosinophils/100 WBC (Bld) 5.1 % Normal 0.9-7.0 [facility] Comment on above: Performed By: #### C BC #### [facility] [address] [place] [address] Dr. Jessica Saravia Erythrocyte distribution width (RBC) [Ratio] 16.6 % Critically high 11.0-15.0 [facility] Comment on above: Performed By: #### C BC #### [facility] [address] [place] [address] Dr. Jessica Saravia Hematocrit (Bld) [Volume fraction] 34.1 % Critically low 36.0-48.0 [facility] Comment on above: Performed By: #### C BC #### [facility] [address] [place] [address] Dr. Jessica Saravia Hemoglobin (Bld) [Mass/Vol] 10.6 g/dL Critically low 12.0-16.0 [facility] Comment on above: Performed By: #### C BC #### [facility] [address] [place] [address] Dr. Jessica Saravia IG # 0.02 10e3/ul Normal 0.00-0.03 [facility] Comment on above: Performed By: #### C BC #### [facility] [address] [place] [address] Dr. Jessica Saravia IG % 0.3 % Normal 0.0-0.5 [facility] Comment on above: Performed By: #### C BC #### [facility] [address] [address] [address] Jessica Saravia LYMPH # 1.4 103/ul Normal 1.2-3.8 [facility] Comment on above: Performed By: #### C BC #### [facility] [address] [place] [address] Dr. Jessica Saravia Lymphocytes/100 WBC (Bld) 19.6 % Critically low 20.5-60.0 [facility] Comment on above: Performed By: #### C BC #### [facility] [address] [place] [address] Dr. Jessica Saravia MANUAL DIFF REQ NO Normal [facility] Comment on above: Performed By: #### C BC #### [facility] [address] [place] [address] Dr. Jessica Saravia MCH (RBC) [Entitic mass] 27.9 pg Normal 26.7-34.0 [facility] Comment on above: Performed By: #### C BC #### [facility] [address] [place] [address] Dr. Jessica Saravia MCHC (RBC) [Mass/Vol] 31.1 g/dL Normal 29.9-35.2 [facility] Comment on above: Performed By: #### C BC #### [facility] [address] [place] [address] Dr. Jessica Saravia MCV (RBC) [Entitic vol] 89.7 fL Normal 81.0-99.0 [facility] Comment on above: Performed By: #### C BC #### [facility] [address] [place] [address] Dr. Jessica Saravia MONO # 1.0 103/ul Critically high 0.3-0.8 [facility] Comment on above: Performed By: #### C BC #### [facility] [address] [place] [address] Dr. Jessica Saravia Monocytes/100 WBC (Bld) 14.2 % Critically high 1.7-12. 0 [facility] Comment on above: Performed By: #### C BC #### [facility] [address] [place] [address] Dr. Jessica Saravia NEUT # 4.3 103/ul Normal 1.4-6.5 [facility] Comment on above: Performed By: #### C BC #### [facility] [address] [address] [address] Jessica Saravia Neutrophils/100 WBC (Bld) 59.8 % Normal 43.0-75.0 [facility] Comment on above: Performed By: #### C BC #### [facility] [address] [place] [address] Dr. Jessica Saravia Platelet mean volume (Bld) [Entitic vol] 11.9 fL Normal 9.5-13.5 [facility] Comment on above: Performed By: #### C BC #### [facility] [address] [place] [address] Dr. Jessica Saravia PLT 235 103/ul Normal 150-450 [facility] Comment on above: Performed By: #### C BC #### [facility] [address] [place] [address] Dr. Jessica Saravia RBC 3.80 106/ul Critically low 4.20-5.40 [facility] Comment on above: Performed By: #### C BC #### [facility] [address] [place] [address] Dr. Jessica Saravia WBC 7.3 103/ul Normal 4.0-11.0 [facility] Comment on above: Performed By: #### C BC #### [facility] [address] [place] [address] Dr. Jessica Saravia CREATININEon 06-16-2022 Creatinine [Mass/Vol] 1.06 mg/dL Critically high 0.55-1.02 [facility] Comment on above: Performed By: #### ARGENIS RODAS #### [facility] [address] [place] [address] Dr. Jessica Saravia EGFR-AF KYRGYZ >60 Normal >=60 [facility] Comment on above: Performed By: #### ARGENIS RODAS #### [facility] [address] [address] [address] Jessica Saravia EGFR-NON AF KYRGYZ 52 mL/min/1.73m2 Critically low >=60 [facility] Comment on above: Performed By: #### L JONATHAN CREA #### [facility] [address] [address] [address] Jessica Saravia LIVER PROFILEon 06-16-2022 Albumin [Mass/Vol] 2.8 g/dL Critically low 3.4-5.0 [facility] Comment on above: Performed By: #### L JONATHAN CREA #### [facility] [address] [address] [address] Jessica Saravia Albumin/Globulin [Mass ratio] 0.7 {ratio} Normal [facility] Comment on above: Performed By: #### L JONATHAN CREA #### [facility] [address] [address] [address] Jessica Saravia ALP [Catalytic activity/Vol] 112 U/L Normal 46-116 [facility] Comment on above: Performed By: #### Jodie CASTILLO CREA #### [facility] [address] [address] [address] Jessica Saravia ALT [Catalytic activity/Vol] 19 U/L Normal 14-59 [facility] Comment on above: Performed By: #### Jodie CASTILLO CREA #### [facility] [address] [address] [address] Jessica Saravia AST [Catalytic activity/Vol] 16 U/L Normal 15-37 [facility] Comment on above: Performed By: #### L JONATHAN CREA #### [facility] [address] [address] [address] Jessiac Saravia BILI, CONJUGATED 0.1 mg/dL Normal 0.0-0.2 [facility] Comment on above: Performed By: #### L JONATHAN CREA #### [facility] [address] [address] [address] Jessica Saravia Bilirubin [Mass/Vol] 0.3 mg/dL Normal 0.2-1.0 [facility] Comment on above: Performed By: #### L ARGENIS CASTILLO #### [facility] [address] [address] [address] Jessica Saravia Globulin (S) [Mass/Vol] 4.1 g/dL Normal T [facility] Comment on above: Performed By: #### L NATHANIEL CASTILLOA #### [facility] [address] [place] [address] Dr. Jessica Saravia Protein [Mass/Vol] 6.9 g/dL Normal 6.4-8.2 [facility] Comment on above: Performed By: #### L ARGENIS CASTILLO #### [facility] [address] [place] [address] Dr. Jessica Saravia SED RATE WESTERGRENon 2021 SED RATE 82 mm/hr Critically high <=30 [facility] Comment on above: Performed By: #### S EDR #### [facility] [address] [place] [address] Dr. Jessica Saravia US SINGLE QUAD RT [...] ISAAC JONES Date: 2022-05-01 09:07 Normal [facility] CBC AUTO DIFFon 03-21-2022 BASO # 0.1 103/ul Normal 0.0-0.1 [facility] Comment on above: Performed By: #### C BC #### [facility] [address] [place] [address] Dr. Jessica Saravia Basophils/100 WBC (Bld) 1.3 % Normal 0.2-2.0 [facility] Comment on above: Performed By: #### C BC #### [facility] [address] [place] [address] Dr. Jessica Saravia EO # 0.4 103/ul Normal 0.0-0.7 [facility] Comment on above: Performed By: #### C BC #### [facility] [address] [place] [address] Dr. Jessica Saravia Eosinophils/100 WBC (Bld) 5.4 % Normal 0.9-7.0 [facility] Comment on above: Performed By: #### C BC #### [facility] [address] [place] [address] Dr. Jessica Saravia Erythrocyte distribution width (RBC) [Ratio] 17.3 % Critically high 11.0-15.0 [facility] Comment on above: Performed By: #### C BC #### [facility] [address] [place] [address] Dr. Jessica Saravia Hematocrit (Bld) [Volume fraction] 36.4 % Normal 36.0-48.0 [facility] Comment on above: Performed By: #### C BC #### [facility] [facility] [address] [place] [address] Dr. Jessica Saravia Hemoglobin (Bld) [Mass/Vol] 10.5 g/dL Critically low 12.0-16.0 [facility] Comment on above: Performed By: #### C BC #### [facility] [address] [place] [address] Dr. Jessica Saravia IG # 0.02 10e3/ul Normal 0.00-0.03 [facility] Comment on above: Performed By: #### C BC #### [facility] [address] [place] [address] Dr. Jessica Saravia IG % 0.3 % Normal 0.0-0.5 [facility] Comment on above: Performed By: #### C BC #### [facility] [address] [place] [address] Dr. Jessica Saravia LYMPH # 1.2 103/ul Normal 1.2-3.8 [facility] Comment on above: Performed By: #### C BC #### [facility] [address] [place] [address] Dr. Jessica Saravia Lymphocytes/100 WBC (Bld) 16.3 % Critically low 20.5-60.0 [facility] Comment on above: Performed By: #### C BC #### [facility] [address] [place] [address] Dr. Jessica Saravia MANUAL DIFF REQ NO Normal [facility] Comment on above: Performed By: #### C BC #### [facility] [address] [place] [address] Dr. Jessica Saravia MCH (RBC) [Entitic mass] 25.1 pg Critically low 26.7-34.0 [facility] Comment on above: Performed By: #### C BC #### [facility] [address] [place] [address] Dr. Jessica Saravia MCHC (RBC) [Mass/Vol] 28.8 g/dL Critically low 29.9-35.2 [facility] Comment on above: Result Comment: hypo chromic Performed By: #### C BC #### [facility] [address] [place] [address] Dr. Jessica Saravia MCV (RBC) [Entitic vol] 87.1 fL Normal 81.0-99.0 [facility] Comment on above: Performed By: #### C BC #### [facility] [address] [place] [address] Dr. Jessica Saravia MONO # 0.9 103/ul Critically high 0.3-0.8 [facility] Comment on above: Performed By: #### C BC #### [facility] [address] [place] [address] Dr. Jessica Saravia Monocytes/100 WBC (Bld) 12.0 % Normal 1.7-12.0 [facility] Comment on above: Performed By: #### C BC #### [facility] [address] [place] [address] Dr. Jessica Saravia NEUT # 4.7 103/ul Normal 1.4-6.5 [facility] Comment on above: Performed By: #### C BC #### [facility] [address] [address] [address] Jessica Saravia Neutrophils/100 WBC (Bld) 64.7 % Normal 43.0-75.0 [facility] Comment on above: Performed By: #### C BC #### [facility] [address] [address] [address] Jessica Saravia Platelet mean volume (Bld) [Entitic vol] 12.3 fL Normal 9.5-13.5 [facility] Comment on above: Performed By: #### C BC #### [facility] [address] [place] [address] Dr. Jessica Saravia PLT 284 103/ul Normal 150-450 [facility] Comment on above: Performed By: #### C BC #### [facility] [address] [place] [address] Dr. Jessica Saravia RBC 4.18 106/ul Critically low 4.20-5.40 [facility] Comment on above: Performed By: #### C BC #### [facility] [address] [place] [address] Dr. Jessica Saravia WBC 7.2 103/ul Normal 4.0-11.0 [facility] Comment on above: Performed By: #### C BC #### [facility] [address] [place] [address] Dr. Jessica Saravia CREATININEon 03-21-2022 Creatinine [Mass/Vol] 1.05 mg/dL Critically high 0.55-1.02 [facility] Comment on above: Performed By: #### L IVER #### [facility] [address] [place] [address] Dr. Jessica Saravia EGFR-AF KYRGYZ >60 Normal >=60 [facility] Comment on above: Performed By: #### L IVER #### [facility] [address] [place] [address] Dr. Jessica Saravia EGFR-NON AF KYRGYZ 53 mL/min/1.73m2 Critically low >=60 [facility] Comment on above: Performed By: #### L IVER #### [facility] [address] [address] [address] Jessica Saravia LIVER PROFILEon 03-21-2022 Albumin [Mass/Vol] 2.9 g/dL Critically low 3.4-5.0 Th e [facility] Comment on above: Performed By: #### L IVER #### [facility] [address] [address] [address] Jessica Saravia Albumin/Globulin [Mass ratio] 0.7 {ratio} Normal [facility] Comment on above: Performed By: #### L IVER #### [facility] [address] [address] [address] Jessica Saravia ALP [Catalytic activity/Vol] 86 U/L Normal 46-116 [facility] Comment on above: Performed By: #### L IVER #### [facility] [address] [place] [address] Dr. Jessica Saravia ALT [Catalytic activity/Vol] 18 U/L Normal 14-59 [facility] Comment on above: Performed By: #### L IVER #### [facility] [address] [place] [address] Dr. Jessica Saravia AST [Catalytic activity/Vol] 13 U/L Critically low 15-37 [facility] Comment on above: Performed By: #### L IVER #### [facility] [address] [address] [address] Jessica Saravia BILI, CONJUGATED 0.1 mg/dL Normal 0.0-0.2 [facility] Comment on above: Performed By: #### L IVER #### [facility] [address] [address] [address] Jessica Saravia Bilirubin [Mass/Vol] 0.4 mg/dL Normal 0.2-1.0 [facility] Comment on above: Performed By: #### L IVER #### [facility] [address] [place] [address] Dr. Jessica Saravia Globulin (S) [Mass/Vol] 4.1 g/dL Normal [facility] Comment on above: Performed By: #### L IVER #### [facility] [address] [place], [place] [address] Dr. Jessica Saravia Protein [Mass/Vol] 7.0 g/dL Normal 6.4-8.2 [facility] Comment on above: Performed By: #### L IVER #### [facility] [address] [place], [place] [address] Dr. Jessica Sar[facility] SED [facility] 92 mm/hr Critically high <=30 [facility] Comment on above: Performed By: #### L IVER #### [facility] [address] [place], [place] [address] Dr. Jessica Saravia Activated partial thrombopla stin time (aPTT) in platelet poor plasma by coagulation aOrdered By: Marcin Patel on 03-01-2022 aPTT Coag (PPP) [Time] 31.7 s 25.1-36.5 [facility] - CoagulationOrde red By: Marcin Patel on 03-01-2022 PT Coag (PPP) [Time] 13.1 s 9.0-12.9 [facility] Platelet poor plasma interna tional normalized ratio (INR) by coagulation assay (relatOrdered By: Marcin Patel on 03-01-2022 INR Coag (PPP) [Relative time] 1.2 {INR} [facility] Comment on above: INR Therapeutic Rang e [...] 03-01-2022 Platelets (Bld) [#/Vol] 188 10*3/uL 150-450 [facility] Glucose Glucometer (BldC) [M ass/Vol]Ordered By: Floresita Gonzalez on 02-07-2022 Glucose [Mass/Vol] 153 mg/dL [facility] Comment on above: Random Glucose Refer ence Range is dependent on time and content of last meal. Glucose of more than 200 mg/dL in a nonstressed, ambulatory subject supports the diagnosis of Diabetes Mellitus. No Panel InformationOrdered By: Floresita Gonzalez on 02-07-2022 Bedside Glucose Comment Glu2: cleaned meter [facility] CBC AUTO DIFFon 01-26-2022 BASO # 0.1 103/ul Normal 0.0-0.1 [facility] Comment on above: Performed By: #### C BC #### [facility] [address] [address] [address] Jessica Saravia Basophils/100 WBC (Bld) 1.3 % Normal 0.2-2.0 [facility] Comment on above: Performed By: #### C BC #### [facility] [address] [address] [address] Jessica Saravia EO # 0.4 103/ul Normal 0.0-0.7 [facility] Comment on above: Performed By: #### C BC #### [facility] [address] [address] [address] Jessica Saravia Eosinophils/100 WBC (Bld) 4.6 % Normal 0.9-7.0 [facility] Comment on above: Performed By: #### C BC #### [facility] [address] [address] [address] Jessica Saravia Erythrocyte distribution width (RBC) [Ratio] 18.3 % Critically high 11.0-15.0 [facility] Comment on above: Performed By: #### C BC #### [facility] [address] [address] [address] Jessica Saravia Hematocrit (Bld) [Volume fraction] 28.7 % Critically low 36.0-48.0 [facility] Comment on above: Performed By: #### C BC #### [facility] [address] [address] [address] Jessica Saravia Hemoglobin (Bld) [Mass/Vol] 8.3 g/dL Critically low 12.0-16.0 [facility] Comment on above: Performed By: #### C BC #### [facility] [address] [address] [address] Jessica Saravia IG # 0.12 10e3/ul Critically high 0.00-0.03 [facility] Comment on above: Performed By: #### C BC #### [facility] [address] [place] [address] Dr. Jessica Saravia IG % 1.6 % Critically high 0.0-0.5 [facility] Comment on above: Performed By: #### C BC #### [facility] [address] [place] [address] Dr. Jessica Saravia LYMPH # 1.4 103/ul Normal 1.2-3.8 [facility] Comment on above: Performed By: #### C BC #### [facility] [address] [place] [address] Dr. Jessica Saravia Lymphocytes/100 WBC (Bld) 18.3 % Critically low 20.5-60.0 [facility] Comment on above: Performed By: #### C BC #### [facility] [address] [place] [address] Dr. Jessica Saravia MANUAL DIFF REQ NO Normal [facility] Comment on above: Performed By: #### C BC #### [facility] [address] [place] [address] Dr. Jessica Saravia MCH (RBC) [Entitic mass] 26.4 pg Critically low 26.7-34.0 [facility] Comment on above: Performed By: #### C BC #### [facility] [address] [place] [address] Dr. Jessica Saravia MCHC (RBC) [Mass/Vol] 28.9 g/dL Critically low 29.9-35.2 [facility] Comment on above: Performed By: #### C BC #### [facility] [address] [place] [address] Dr. Jessica Saravia MCV (RBC) [Entitic vol] 91.4 fL Normal 81.0-99.0 [facility] Comment on above: Performed By: #### C BC #### [facility] [address] [address] [address] Jessica Saravia MONO # 1.0 103/ul Critically high 0.3-0.8 [facility] Comment on above: Performed By: #### C BC #### [facility] [address] [address] [address] Jesscia Saravia Monocytes/100 WBC (Bld) 12.6 % Critically high 1.7-12. 0 [facility] Comment on above: Performed By: #### C BC #### [facility] [address] [place] [address] Dr. Jessica Saravia NEUT # 4.6 103/ul Normal 1.4-6.5 [facility] Comment on above: Performed By: #### C BC #### [facility] [address] [place] [address] Dr. Jessica Saravia Neutrophils/100 WBC (Bld) 61.6 % Normal 43.0-75.0 [facility] Comment on above: Performed By: #### C BC #### [facility] [address] [place] [address] Dr. Jessiac Saravia Platelet mean volume (Bld) [Entitic vol] 12.4 fL Normal 9.5-13.5 [facility] Comment on above: Performed By: #### C BC #### [facility] [address] [place] [address] Dr. Jessica Saravia PLT 247 103/ul Normal 150-450 [facility] Comment on above: Performed By: #### C BC #### [facility] [address] [place] [address] Dr. Jessica Saravia RBC 3.14 106/ul Critically low 4.20-5.40 [facility] Comment on above: Performed By: #### C BC #### [facility] [address] [place] [address] Dr. Jessica Saravia WBC 7.5 103/ul Normal 4.0-11.0 [facility] Comment on above: Performed By: #### C BC #### [facility] [address] [place] [address] Dr. Jessica Saravia CREATININEon 01-26-2022 Creatinine [Mass/Vol] 0.88 mg/dL Normal 0.52-1.04 [facility] Comment on above: Performed By: #### C BC #### [facility] [address] [place] [address] Dr. Jessica Saravia EGFR-AF KYRGYZ >60 Normal >=60 [facility] Comment on above: Performed By: #### C BC #### [facility] [address] [place] [address] Dr. Jessica Saravia EGFR-NON AF KYRGYZ >60 Normal >=60 [facility] Comment on above: Performed By: #### C BC #### [facility] [address] [place] [address] Dr. Jessica Saravia LIVER PROFILEon 01-26-2022 Albumin [Mass/Vol] 2.7 g/dL Critically low 3.4-5.0 Th e [facility] Comment on above: Performed By: #### C BC #### [facility] [address] [place] [address] Dr. Jessica Saravia Albumin/Globulin [Mass ratio] 0.7 {ratio} Normal [facility] Comment on above: Performed By: #### C BC #### [facility] [address] [place] [address] Dr. Jessica Saravia ALP [Catalytic activity/Vol] 82 U/L Normal 46-116 [facility] Comment on above: Performed By: #### C BC #### [facility] [address] [place] [address] Dr. Jessica Saravia ALT [Catalytic activity/Vol] 16 U/L Normal 14-59 [facility] Comment on above: Performed By: #### C BC #### [facility] [address] [place] [address] Dr. Jessica Saravia AST [Catalytic activity/Vol] 19 U/L Normal 15-37 [facility] Comment on above: Performed By: #### C BC #### [facility] [address] [place] [address] Dr. Jessica Saravia BILI, CONJUGATED 0.1 mg/dL Normal 0.0-0.3 [facility] Comment on above: Performed By: #### C BC #### [facility] [address] [address] [address] Jessica Saravia Bilirubin [Mass/Vol] 0.4 mg/dL Normal 0.2-1.3 [facility] Comment on above: Performed By: #### C BC #### [facility] [address] [address] [address] Jessica Saravia Globulin (S) [Mass/Vol] 4.0 g/dL Normal T [facility] Comment on above: Performed By: #### C BC #### [facility] [address] [place] [address] Dr. Jessica Saravia Protein [Mass/Vol] 6.7 g/dL Normal 6.1-8.2 [facility] Comment on above: Performed By: #### C BC #### [facility] [address] [address] [address] Jessica Saravia SED RATE [facility] 2021 SED RATE 97 mm/hr Critically high <=30 [facility] Comment on above: Performed By: #### C BC #### [facility] [address] [place] [address] Dr. Jessica Saravia URIC ACID SERUMon 01-26-2022 Urate [Mass/Vol] 4.4 mg/dL Normal 2.5-6.2 [facility] Comment on above: Performed By: #### C BC #### [facility] [address] [place] [address] Dr. Jessica Saravia Amphetamine Screen Ql (U)Ord ered By: Ferdinand Garcia on 12-28-2021 Amphetamines Ql (U) Negative Negative [facility] Barbiturates [Presence] in U rineOrdered By: Ferdinand Garcia on 12-28-2021 Barbiturates Ql (U) Negative Negative [facility] Benzodiazepines [Presence] i n UrineOrdered By: Ferdniand Garcia on 12-28-2021 Benzodiazepines Ql (U) Negative Negative [facility] Cannabinoids [Presence] in U rine by Screen methodOrdered By: Ferdinand Garcia on 12-28-2021 Cannabinoids Screen Ql (U) Positive Negative [facility] Comment on above: These are unconfirme d results and should not be used for legal purposes. Drug Cut-Off Concentration: AMPH 1000 ng/mL DARIANA 200 ng/mL AURY 200 ng/mL COCM 300 ng/mL OP 300 ng/mL PCP 25 ng/mL THC 20 ng/mL Glucose Glucometer (BldC) [M ass/Vol]Ordered By: Salty Gonzalez on 12-28-2021 Glucose [Mass/Vol] 154 mg/dL [facility] Comment on above: Random Glucose Refer ence Range is dependent on time and content of last meal. Glucose of more than 200 mg/dL in a nonstressed, ambulatory subject supports the diagnosis of Diabetes Mellitus. Laboratory - Drug toxicology Ordered By: Ferdinand Garcia on 12-28-2021 Opiates Ql (U) Negative Negative [facility] Phencyclidine Screen Ql (U)O rdered By: Ferdinand Garcia on 12-28-2021 Phencyclidine Ql (U) Negative Negative [facility] Urine cocaine detectionOrder ed By: Ferdinand Garcia on 12-28-2021 Cocaine Ql (U) Negative Negative [facility] CBC AUTO DIFFon 12-27-2021 BASO # 0.1 103/ul Normal 0.0-0.1 [facility] Comment on above: Performed By: #### C BC #### [facility] [address] [address] [address] Jessica Saravia Basophils/100 WBC (Bld) 1.0 % Normal 0.2-2.0 [facility] Comment on above: Performed By: #### C BC #### [facility] [address] [address] [address] Jessica Saravia EO # 0.3 103/ul Normal 0.0-0.7 [facility] Comment on above: Performed By: #### C BC #### [facility] [address] [address] [address] Jessica Saravia Eosinophils/100 WBC (Bld) 3.2 % Normal 0.9-7.0 [facility] Comment on above: Performed By: #### C BC #### [facility] [address] [place] [address] Dr. Jessica Saravia Erythrocyte distribution width (RBC) [Ratio] 16.8 % Critically high 11.0-15.0 [facility] Comment on above: Performed By: #### C BC #### [facility] [address] [place] [address] Dr. Jessica Saravia Hematocrit (Bld) [Volume fraction] 31.4 % Critically low 36.0-48.0 [facility] Comment on above: Performed By: #### C BC #### [facility] [address] [place] [address] Dr. Jessica Saravia Hemoglobin (Bld) [Mass/Vol] 9.5 g/dL Critically low 12.0-16.0 [facility] Comment on above: Performed By: #### C BC #### [facility] [address] [place] [address] Dr. Jessica Saravia IG # 0.02 10e3/ul Normal 0.00-0.03 [facility] Comment on above: Performed By: #### C BC #### [facility] [address] [place] [address] Dr. Jessica Saravia IG % 0.2 % Normal 0.0-0.5 [facility] Comment on above: Performed By: #### C BC #### [facility] [address] [place] [address] Dr. Jessica Saravia LYMPH # 2.2 103/ul Normal 1.2-3.8 [facility] Comment on above: Performed By: #### C BC #### [facility] [address] [place] [address] Dr. Jessica Saravia Lymphocytes/100 WBC (Bld) 26.5 % Normal 20.5-60.0 [facility] Comment on above: Performed By: #### C BC #### [facility] [address] [place] [address] Dr. Jessica Saravia MANUAL DIFF REQ NO Normal [facility] Comment on above: Performed By: #### C BC #### [facility] [address] [address] [address] Jessica Saravia MCH (RBC) [Entitic mass] 26.0 pg Critically low 26.7-34.0 [facility] Comment on above: Performed By: #### C BC #### [facility] [address] [place] [address] Dr. Jessica Saravia MCHC (RBC) [Mass/Vol] 30.3 g/dL Normal 29.9-35.2 [facility] Comment on above: Performed By: #### C BC #### [facility] [address] [place] [address] Dr. Jessica Saravia MCV (RBC) [Entitic vol] 86.0 fL Normal 81.0-99.0 [facility] Comment on above: Performed By: #### C BC #### [facility] [address] [place] [address] Dr. Jessica Saravia MONO # 0.9 103/ul Critically high 0.3-0.8 [facility] Comment on above: Performed By: #### C BC #### [facility] [address] [place] [address] Dr. Jessica Saravia Monocytes/100 WBC (Bld) 10.7 % Normal 1.7-12.0 [facility] Comment on above: Performed By: #### C BC #### [facility] [address] [place] [address] Dr. Jessica Saravia NEUT # 4.8 103/ul Normal 1.4-6.5 [facility] Comment on above: Performed By: #### C BC #### [facility] [address] [place] [address] Dr. Jessica Saravia Neutrophils/100 WBC (Bld) 58.4 % Normal 43.0-75.0 [facility] Comment on above: Performed By: #### C BC #### [facility] [address] [place] [address] Dr. Jessica Saravia Platelet mean volume (Bld) [Entitic vol] 11.5 fL Normal 9.5-13.5 [facility] Comment on above: Performed By: #### C BC #### [facility] [address] [address] [address] Jessica Saravia PLT 263 103/ul Normal 150-450 [facility] Comment on above: Performed By: #### C BC #### [facility] [address] [address] [address] Jessica Saravia RBC 3.65 106/ul Critically low 4.20-5.40 [facility] Comment on above: Performed By: #### C BC #### [facility] [address] [address] [address] Jessica Saravia WBC 8.2 103/ul Normal 4.0-11.0 [facility] Comment on above: Performed By: #### C BC #### [facility] [address] [place] [address] Dr. Jessica Saravia LIPID PROFILEon 12-27-2021 CHOL-HDL RATIO NORM SEE BELOW Normal [facility] Comment on above: Result Comment: 3.3 - 4.4 LOW RISK 4.4 - 7.1 AVERAGE RISK 7.1 - 11.0 MODERATE RISK >11.0 HIGH RISK Performed By: #### C BC #### [facility] [address] [place] [address] Dr. Jessica Saravia Cholesterol [Mass/Vol] 130 mg/dL Normal <=200 [facility] Comment on above: Performed By: #### C BC #### [facility] [address] [address] [address] Jessica Saravia Cholesterol in HDL [Mass/Vol] 27 mg/dL Normal [facility] Comment on above: Performed By: #### C BC #### [facility] [address] [address] [address] Jessica Saravia Cholesterol in LDL [Mass/Vol] 68.6 mg/dL Normal [facility] Comment on above: Performed By: #### C BC #### [facility] [address] [place] [address] Dr. Jessica Saravia Cholesterol.total/Cindy sterol in HDL [Mass ratio] 4.8 {ratio} Normal [facility] Comment on above: Performed By: #### C BC #### [facility] [address] [address] [address] Jessica Saravia HDL NORMAL > or = 60 mg/dl - LOW CARDIOVASCULAR RISK <40 mg/dl - HIGH CARDIOVASCULAR RISK Normal [facility] Comment on above: Performed By: #### C BC #### [facility] [address] [address] [address] Jessica Saravia LDL CALC NORMAL SEE BELOW Normal [facility] Comment on above: Result Comment: <100 mg/dl OPTIMAL 100 - 129 mg/dl NEAR OR ABOVE OPTIMAL 130 - 159 mg/dl BORDERLINE HIGH 160 - 189 mg/dl HIGH >190 mg/dl VERY HIGH Performed By: #### C BC #### [facility] [address] [place] [address] Dr. Jessica Saravia Triglyceride [Mass/Vol] 172 mg/dL Critically high <=150 [facility] Comment on above: Performed By: #### C BC #### [facility] [address] [place] [address] Dr. Jessica Saravia VLDL CALC 34.4 mg/dL Normal [facility] Comment on above: Performed By: #### C BC #### [facility] [address] [place] [address] Dr. Jessica Saravia LIVER PROFILEon 12-27-2021 Albumin [Mass/Vol] 2.5 g/dL Critically low 3.5-5.0 Th [facility] Comment on above: Performed By: #### L IVER #### [facility] [address] [place] [address] Dr. Jessica Saravia Albumin/Globulin [Mass ratio] 0.6 {ratio} Normal [facility] Comment on above: Performed By: #### L IVER #### [facility] [address] [place] [address] Dr. Jessica Saravia ALP [Catalytic activity/Vol] 80 U/L Normal 38-126 [facility] Comment on above: Performed By: #### L IVER #### [facility] [address] [place] [address] Dr. Jessica Saravia ALT [Catalytic activity/Vol] 16 U/L Normal 9-52 [facility] Comment on above: Performed By: #### L IVER #### [facility] [address] [place] [address] Dr. Jessica Saravia AST [Catalytic activity/Vol] 9 U/L Critically low 14-36 [facility] Comment on above: Performed By: #### L IVER #### [facility] [address] [place] [address] Dr. Jessica Saravia BILI, CONJUGATED 0.1 mg/dL Normal 0.0-0.3 [facility] Comment on above: Performed By: #### L IVER #### [facility] [address] [place] [address] Dr. Jessica Saravia Bilirubin [Mass/Vol] 0.3 mg/dL Normal 0.2-1.3 [facility] Comment on above: Performed By: #### L IVER #### [facility] [address] [place] [address] Dr. Jessica Saravia Globulin (S) [Mass/Vol] 4.1 g/dL Normal T [facility] Comment on above: Performed By: #### L IVER #### [facility] [address] [place] [address] Dr. Jessica Saravia Protein [Mass/Vol] 6.6 g/dL Normal 6.1-8.2 [facility] Comment on above: Performed By: #### L IVER #### [facility] [address] [place] [address] Dr. Jessica Saravia PROF CHEM 8 (BAS METB)on Anion gap [Moles/Vol] 11.6 mmol/L Normal [facility] Comment on above: Performed By: #### C BC #### [facility] [address] [place] [address] Dr. Jessica Saravia Calcium [Mass/Vol] 8.2 mg/dL Critically low 8.4-10.2 [facility] Comment on above: Performed By: #### C BC #### [facility] [address] [address] [address] eJssica Saravia Chloride [Moles/Vol] 103 mmol/L Normal 98-107 [facility] Comment on above: Performed By: #### C BC #### [facility] [address] [address] [address] Jessica Saravia CO2 [Moles/Vol] 30.0 mmol/L Normal 22.0-30.0 [facility] Comment on above: Performed By: #### C BC #### [facility] [address] [place] [address] Dr. Jessica Saravia Creatinine [Mass/Vol] 1.05 mg/dL Critically high 0.52-1.04 [facility] Comment on above: Performed By: #### C BC #### [facility] [address] [place] [address] Dr. Jessica Saravia EGFR-AF KYRGYZ >60 Normal >=60 [facility] Comment on above: Performed By: #### C BC #### [facility] [address] [place] [address] Dr. Jessica Saravia EGFR-NON AF KYRGYZ 53 mL/min/1.73m2 Critically low >=60 [facility] Comment on above: Performed By: #### C BC #### [facility] [address] [place] [address] Dr. Jessica Saravia Glucose [Mass/Vol] 214 mg/dL Critically high 74-106 [facility] Comment on above: Performed By: #### C BC #### [facility] [address] [place] [address] Dr. Jessica Saravia Potassium [Moles/Vol] 3.6 mmol/L Normal 3.4-5.0 [facility] Comment on above: Performed By: #### C BC #### [facility] [address] [place] [address] Dr. Jessica Saravia Sodium [Moles/Vol] 141 mmol/L Normal 137-145 [facility] Comment on above: Performed By: #### C BC #### [facility] [address] [place] [address] Dr. Jessica Saravia Urea nitrogen [Mass/Vol] 9.0 mg/dL Normal 7.0-17.0 [facility] Comment on above: Performed By: #### C BC #### [facility] [address] [place] [address] Dr. Jessica Saravia Urea nitrogen/Creatinine [Mass ratio] 8.6 mg/mg Normal [facility] Comment on above: Performed By: #### C BC #### [facility] [address] [address] [address] Jessica Saravia SED RATE WESTERGRENon 2021 SED RATE 80 mm/hr Critically high <=30 [facility] Comment on above: Performed By: #### S EDR #### [facility] [address] [place] [address] Dr. Jessica Saravia COVID-19 Positive/NegativeOr dered By: Salty Gonzalez on 12-24-2021 SARS-CoV-2 (COVID-19) N gene AMA+probe Ql (Resp) Negative Negative [facility] Comment on above: Testing for SARS-CoV -2 by RT-PCRThis test was developed and its performance characteristics determined by [employer] ([employer]) and validated at the [facility]. This test has not been FDA cleared [...] 12-14-2021 Basophils (Bld) [#/Vol] 0.1 10*3/uL 0.0-0.2 [facility] Basophils/100 WBC Auto (Bld) Ordered By: Salty Gonzalez on 12-14-2021 Basophils/100 WBC (Bld) 1.5 % [facility] Blood hemoglobin measurement (mass/volume)Ordered By: Salty Gonzalez on 12-14-2021 Hemoglobin (Bld) [Mass/Vol] 10.7 g/dL 11.8-15.4 [facility] Blood leukocytes automated c ount (number/volume)Ordered By: Salty Gonzalez on 12-14-2021 WBC (Bld) [#/Vol] 7.2 10*3/uL 4.5-11.0 [facility] Creatinine and Glomerular fi ltration rate.predicted panel (S/P/Bld)Ordered By: Salty Gonzalez on 12-14-2021 Creatinine [Mass/Vol] 0.98 mg/dL 0.44-1.03 [facility] Eosinophils Auto (Bld) [#/Vo l]Ordered By: Salty Gonzalez on 12-14-2021 Eosinophils (Bld) [#/Vol] 0.4 10*3/uL 0.0-0.45 [facility] Eosinophils/100 WBC Auto (Bl d)Ordered By: Salty Gonzalez on 12-14-2021 Eosinophils/100 WBC (Bld) 5.5 % [facility] Erythrocyte distribution wid th Auto (RBC) [Ratio]Ordered By: Salty Gonzalez on 12-14-2021 Erythrocyte distribution width (RBC) [Ratio] 17.4 % 11.9-15.3 [facility] Estimated glomerular filtrat ion rate (GFR) non- AmericanOrdered By: Salty Gonzalez on 12-14-2021 GFR/1.73 sq M.predicted among non-blacks MDRD (S/P/Bld) [Vol rate/Area] 57 mL/Min [facility] Hematocrit Auto (Bld) [Volum e fraction]Ordered By: Salty Gonzalez on 12-14-2021 Hematocrit (Bld) [Volume fraction] 33.6 % 34.0-46.4 [facility] - Hematology and Cell countsOrdered By: Salty Gonzalez on 12-14-2021 Nucleated RBC/100 WBC (Bld) [Ratio] 0.1 % 0-0.5 [facility] Lymphocytes Auto (Bld) [#/Vo l]Ordered By: Salty Gonzalez on 12-14-2021 Lymphocytes (Bld) [#/Vol] 1.4 10*3/uL 1.00-4.8 [facility] Lymphocytes/100 WBC Auto (Bl d)Ordered By: Salty Gonzalez on 12-14-2021 Lymphocytes/100 WBC (Bld) 19.0 % [facility] MCH Auto (RBC) [Entitic mass ]Ordered By: Salty Gonzalez on 12-14-2021 MCH (RBC) [Entitic mass] 26.7 pg 24.7-34.3 [facility] MCHC Auto (RBC) [Mass/Vol]Or dered By: Salty Gonzalez on 12-14-2021 MCHC (RBC) [Mass/Vol] 31.9 g/dL 32.0-35.0 [facility] MCV Auto (RBC) [Entitic vol] Ordered By: Salty Gonzalez on 12-14-2021 MCV (RBC) [Entitic vol] 83.5 fL 80-100 [facility] Monocytes Auto (Bld) [#/Vol] Ordered By: Salty Gonzalez on 12-14-2021 Monocytes (Bld) [#/Vol] 0.8 10*3/uL 0.0-0.8 [facility] Monocytes/100 WBC Auto (Bld) Ordered By: Salty Gonzalez on 12-14-2021 Monocytes/100 WBC (Bld) 11.0 % [facility] Neutrophils Auto (Bld) [#/Vo l]Ordered By: Salty Gonzalez on 12-14-2021 Neutrophils (Bld) [#/Vol] 4.5 10*3/uL 1.8-7.7 [facility] Neutrophils/100 WBC Auto (Bl d)Ordered By: Salty Gonzalez on 12-14-2021 Neutrophils/100 WBC (Bld) 63.0 % [facility] No Panel InformationOrdered By: Salty Gonzalez on 12-14-2021 Estimated GFR () > 60 mL/Min [facility] Comment on above: GFR estimated refere nce range: According to KDOQI guidelines, <60 ml/min/1.73m2 is sufficient to diagnose a patient with chronic kidney disease. Pharmacy Creatinine Clearance (Chem N/A [facility] Platelet mean volume Auto (B ld) [Entitic vol]Ordered By: Salty Gonzalez on 12-14-2021 Platelet mean volume (Bld) [Entitic vol] 10.1 fL 6.3-10.7 [facility] Platelets Auto (Bld) [#/Vol] Ordered By: Salty Gonzalez on 12-14-2021 Platelets (Bld) [#/Vol] 245 10*3/uL 150-450 [facility] RBC Auto (Bld) [#/Vol]Ordere d By: Salty Gonzalez on 12-14-2021 RBC (Bld) [#/Vol] 4.02 10*6/uL 3.60-5.00 [facility] Serum or plasma calcium kell urement (mass/volume)Ordered By: Salty Gonzalez on 12-14-2021 Calcium [Mass/Vol] 10.0 mg/dL 8.2-10.2 [facility] Serum or plasma chloride jennifer surement (moles/volume)Ordered By: Salty Gonzalez on 12-14-2021 Chloride [Moles/Vol] 102 mmol/L 95-114 [facility] Serum or plasma glucose kell urement (mass/volume)Ordered By: Salty Gonzalez on 12-14-2021 Glucose [Mass/Vol] 226 mg/dL 70-100 [facility] Comment on above: ADA recommended refe rence rangeRandom Glucose Reference Range is dependent on time and content of last meal. Glucose of more than 200 mg/dL in a nonstressed, ambulatory subject supports the diagnosis of Diabetes Mellitus. Serum or plasma potassium me asurement (moles/volume)Ordered By: Salty Gonzalez on 12-14-2021 Potassium [Moles/Vol] 3.9 mmol/L 3.5-5.1 [facility] Serum or plasma sodium measu rement (moles/volume)Ordered By: Salty Gonzalez on 12-14-2021 Sodium [Moles/Vol] 136 mmol/L 136-146 [facility] Serum or plasma total carbon dioxide measurement (moles/volume)Ordered By: Salty Gonzalez on 12-14-2021 CO2 [Moles/Vol] 24.5 mmol/L 22.0-30.0 [facility] Serum or plasma urea nitroge n measurement (mass/volume)Ordered By: Salty Gonzalez on 12-14-2021 Urea nitrogen [Mass/Vol] 9 mg/dL 07-08 [facility] CBC AUTO DIFFon 12-08-2021 BASO # 0.1 103/ul Normal 0.0-0.1 [facility] Comment on above: Performed By: #### L IVER #### [facility] [address] [place] [address] Dr. Jessica Saravia Basophils/100 WBC (Bld) 1.1 % Normal 0.2-2.0 [facility] Comment on above: Performed By: #### L IVER #### [facility] [address] [address] [address] Jessica Saravia EO # 0.4 103/ul Normal 0.0-0.7 [facility] Comment on above: Performed By: #### L IVER #### [facility] [address] [address] [address] Jessica Saravia Eosinophils/100 WBC (Bld) 4.1 % Normal 0.9-7.0 [facility] Comment on above: Performed By: #### L IVER #### [facility] [address] [address] [address] Jessica Saravia Erythrocyte distribution width (RBC) [Ratio] 16.8 % Critically high 11.0-15.0 [facility] Comment on above: Performed By: #### L IVER #### [facility] [address] [place] [address] Dr. Jessica Saravia Hematocrit (Bld) [Volume fraction] 37.1 % Normal 36.0-48.0 [facility] Comment on above: Performed By: #### L IVER #### [facility] [address] [place] [address] Dr. Jessica Saravia Hemoglobin (Bld) [Mass/Vol] 11.0 g/dL Critically low 12.0-16.0 [facility] Comment on above: Performed By: #### L IVER #### [facility] [address] [place] [address] Dr. Jessica Saravia IG # 0.02 10e3/ul Normal 0.00-0.03 [facility] Comment on above: Performed By: #### L IVER #### [facility] [address] [place] [address] Dr. Jessica Saravia IG % 0.2 % Normal 0.0-0.5 [facility] Comment on above: Performed By: #### L IVER #### [facility] [address] [place] [address] Dr. Jessica Saravia LYMPH # 1.5 103/ul Normal 1.2-3.8 [facility] Comment on above: Performed By: #### L IVER #### [facility] [address] [place] [address] Dr. Jessica Saravia Lymphocytes/100 WBC (Bld) 16.2 % Critically low 20.5-60.0 [facility] Comment on above: Performed By: #### L IVER #### [facility] [address] [place] [address] Dr. Jessica Saravia MANUAL DIFF REQ NO Normal [facility] Comment on above: Performed By: #### L IVER #### [facility] [address] [place] [address] Dr. Jessica Saravia MCH (RBC) [Entitic mass] 26.4 pg Critically low 26.7-34.0 [facility] Comment on above: Performed By: #### L IVER #### [facility] [address] [place] [address] Dr. Jessica Saravia MCHC (RBC) [Mass/Vol] 29.6 g/dL Critically low 29.9-35.2 [facility] Comment on above: Performed By: #### L IVER #### [facility] [address] [place] [address] Dr. Jessica Saravia MCV (RBC) [Entitic vol] 89.0 fL Normal 81.0-99.0 [facility] Comment on above: Performed By: #### L IVER #### [facility] [address] [place] [address] Dr. Jessica Saravia MONO # 0.8 103/ul Normal 0.3-0.8 [facility] Comment on above: Performed By: #### L IVER #### [facility] [address] [place] [address] Dr. Jessica Saravia Monocytes/100 WBC (Bld) 8.6 % Normal 1.7-12.0 [facility] Comment on above: Performed By: #### L IVER #### [facility] [address] [place] [address] Dr. Jessica Saravia NEUT # 6.3 103/ul Normal 1.4-6.5 [facility] Comment on above: Performed By: #### L IVER #### [facility] [address] [place] [address] Dr. Jessica Saravia Neutrophils/100 WBC (Bld) 69.8 % Normal 43.0-75.0 [facility] Comment on above: Performed By: #### L IVER #### [facility] [address] [place] [address] Dr. Jessica Saravia Platelet mean volume (Bld) [Entitic vol] 11.9 fL Normal 9.5-13.5 [facility] Comment on above: Performed By: #### L IVER #### [facility] [address] [place], [place] [id number] Dr. Jessica Saravia PLT 253 103/ul Normal 150-450 [facility] Comment on above: Performed By: #### L IVER #### [facility] [address] [place] [address] Dr. Jessica Saravia RBC 4.17 106/ul Critically low 4.20-5.40 [facility] Comment on above: Performed By: #### L IVER #### [facility] [address] [place] [address] Dr. Jessica Saravia WBC 9.0 103/ul Normal 4.0-11.0 [facility] Comment on above: Performed By: #### L IVER #### [facility] [address] [place] [address] Dr. Jessica Saravia CREATININEon 12-08-2021 Creatinine [Mass/Vol] 1.23 mg/dL Critically high 0.52-1.04 [facility] Comment on above: Performed By: #### C SARAH, LIVER #### [facility] [address] [place] [address] Dr. Jessica Saravia EGFR-AF KYRGYZ 53 mL/min/1.73m2 Critically low >=60 [facility] Comment on above: Performed By: #### C SARAH, LIVER #### [facility] [address] [place] [address] Dr. Jessica Saravia EGFR-NON AF KYRGYZ 44 mL/min/1.73m2 Critically low >=60 [facility] Comment on above: Performed By: #### C SARAH, LIVER #### [facility] [address] [place] [address] Dr. Jessica Saravia LIVER PROFILEon 12-08-2021 Albumin [Mass/Vol] 2.8 g/dL Critically low 3.5-5.0 [facility] Comment on above: Performed By: #### C SARAH, LIVER #### [facility] [address] [place] [address] Dr. Jessica Saravia Albumin/Globulin [Mass ratio] 0.7 {ratio} Normal [facility] Comment on above: Performed By: #### C SARAH, LIVER #### [facility] [address] [address] [address] Jessica Saravia ALP [Catalytic activity/Vol] 92 U/L Normal 38-126 [facility] Comment on above: Performed By: #### C SARAH, LIVER #### [facility] [address] [address] [address] Jessica Saravia ALT [Catalytic activity/Vol] 15 U/L Normal 9-52 [facility] Comment on above: Performed By: #### C SARAH, LIVER #### [facility] [address] [address] [address] Jessica Saravia AST [Catalytic activity/Vol] 15 U/L Normal 14-36 [facility] Comment on above: Performed By: #### C SARAH, LIVER #### [facility] [address] [address] [address] Jessica Saravia BILI, CONJUGATED 0.1 mg/dL Normal 0.0-0.3 [facility] Comment on above: Performed By: #### C SARAH, LIVER #### [facility] [address] [address] [address] Jessica Saravia Bilirubin [Mass/Vol] 0.4 mg/dL Normal 0.2-1.3 [facility] Comment on above: Performed By: #### C SARAH, LIVER #### [facility] [address] [address] [address] Jessica Saravia Globulin (S) [Mass/Vol] 4.3 g/dL Normal T [facility] Comment on above: Performed By: #### C SARAH, LIVER #### [facility] [address] [address] [address] Jessica Saravia Protein [Mass/Vol] 7.1 g/dL Normal 6.1-8.2 [facility] Comment on above: Performed By: #### C SARAH, LIVER #### [facility] [address] [address] [address] Jessica Saravia SED RATE [facility] 2021 SED RATE 118 mm/hr Critically high <=30 [facility] Comment on above: Performed By: #### L JONATHAN #### [facility] [address] [address] [address] Jessica Saravia Office Visit (Cardiology)on 10-28-2021 Follow-up visit Diagnoses/Problems Assessed Status post insertion of drug eluting coronary artery stent (V45.82) (Z95.5) History of ST elevation myocardial infarction (STEMI) (412) (I25.2) Ischemic cardiomyopathy (414.8) (I25.5) HTN (hypertension) (401.9) (I10) Mixed hyperlipidemia (272.2) (E78.2) Diabetes mellitus (250.00) (E11.9) Coronary artery disease involving [place] coronary artery of [place] heart without angina pectoris (414.01) (I25.10) Rheumatoid arthritis (714.0) (M06.9) Never a smoker Morbid obesity with BMI of 40.0-44.9, adult (278.01,V85.41) (E66.01,Z68.41) Orders Coronary artery disease involving [place] coronary artery of [place] heart without angina pectoris, HTN (hypertension), Ischemic cardiomyopathy, Mixed hyperlipidemia ALT - Alanine Aminotransferase, Serum; Status:Active - Retrospective Authorization; Requested for:27Dec2021; AST; Status:Active - Retrospective Authorization; Requested for:27Dec2021; Basic Metabolic Panel; Status:Active - Retrospective Authorization; Requested for:27Dec2021; Lipid Panel; Status:Active - Retrospective Authorization; Requested for:27Dec2021; Coronary artery disease involving [place] coronary artery of [place] heart without angina pectoris, Mixed hyperlipidemia Stop: [...] 152/80. She sustained a very large inferior NC in August 2021 with extensive AngioJet thrombectomy [...] 1/2 cup (more content not included)... Normal [employer] Tobacco Screening.on 022 Tobacco use status CPHS b) No [place] [address] [address] DO Work Phone: Echocardiogramon 10-04-[address], [place] [address] TRANSTHORACIC ECHOCARDIOGRAM REPORT Patient Name: CHUCKY Kilpatrick Physician: [id number] Kateryna DUNLAP MD Study Date: 10/04/2021 Referring [id number] LUKE HERRMANN Physician: MRN/PID: [id number] PCP: Reese Nixon MD Accession/Order#: [id number] Department [facility] Location: Date of : 1955 Fellow: Gender: F Nurse: Admit Date: Buying Intern: Shana Phelps [facility], T Height: 162.56 cm CC Report to: Weight: 126.10 kg Study Type: Echocardiogram BSA: 2.25 m2 Blood Pressure: 144 /94 mmHg Diagnosis/ICD: I25.5-Ischemic cardiomyopathy Indication: CAD, NC and PTCA-08/2021, Diabetes, Dyspnea, HTN, Rheumatoid Arthritis, Morbid Obesity Procedure/CPT: Echo Complete w Full [id number] Study Detail: The following Echo studies were [...] Normal Ranges: LVOT Diameter: 2.10 cm (1.8-2.4cm) [id number] Kateryna De Jesus MD Electronically signed on 10/04/2021 at 4:39:26 PM Final Normal [facility] Office Visit (Cardiology)on 10-04-2021 Follow-up visit Diagnoses/Problems Assessed Ischemic cardiomyopathy (414.8) (I25.5) Coronary artery disease involving [place] coronary artery of [place] heart without angina pectoris (414.01) (I25.10) HTN (hypertension) (401.9) (I10) Diabetes mellitus (250.00) (E11.9) Mixed hyperlipidemia (272.2) (E78.2) STEMI (ST elevation myocardial infarction) (410.90) (I21.3) Morbid obesity with BMI of 40.0-44.9, adult (278.01,V85.41) (E66.01,Z68.41) Orders Coronary artery disease involving [place] coronary artery of [place] heart without angina pectoris, Mixed hyperlipidemia ALT - Alanine Aminotransferase, Serum; Status:Active; Requested for:[id number]; AST; Status:Active; Requested for:[id number]; Lipid Panel; Status:Active; Requested for:[id number]; Ischemic cardiomyopathy Basic Metabolic Panel; Status:Active; Requested for:[id number]; Patient Instructions PLAN: Through informed decision making [...] list o (more content not included)... Normal [employer] Tobacco Screening.on Fall risk assessment a) No falls within the last year [facility] [employer] [address] [place] Work Phone: Tobacco use status [facility] b) No M [facility] [employer] [address] [place] Work Phone: Office Visit (Cardiology)on 09-20-2021 Follow-up visit Diagnoses/Problems Assessed Ischemic cardiomyopathy (414.8) (I25.5) ICM HFrEF LVEF 35% Aug 2021 cath: FC II Stage C GDMT: coreg AND entresto added Aug 31, 2021 No aldactone currently Coronary artery disease involving [place] coronary artery of [place] heart without angina pectoris (414.01) (I25.10) Aug 23, 2021 aspiration thrombectomy PDA AngioJet thrombectomy p-mRCA PCI/Skypoint 02/10 dRCA PCI/Eliceo p/mRCA No left system disease STEMI (ST elevation myocardial infarction) (410.90) (I21.3) Aug 23, 2021 [facility] [place] [facility] [place]. Herrmann HTN (hypertension) (401.9) (I10) optimal Mixed hyperlipidemia (272.2) (E78.2) Atorvastatin was new at discharge Will need labs beginning of October Diabetes mellitus (250.00) (E11.9) Good control On ARNI/statin Morbid obesity with BMI of 40.0-44.9, adult (278.01,V85.41) (E66.01,Z68.41) Reviewed the merits of healthy lifestyle choices on overall cardiovascular health. Orders Coronary artery disease involving [place] coronary artery of [place] heart without angina pectoris, Mixed hyperlipidemia Start: [...] contact the office if new symptoms arise. 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 Normal [employer] Tobacco Screening.on 021 Heart Rate Regular [facility] DO Work Phone: Tobacco use status [facility] b) No M [facility] [employer] DO Work Phone: Tobacco Screening.on 021 Fall risk assessment a) No falls within the last year [facility] [employer] DO Work Phone: Tobacco use status [facility] b) No M [facility] [employer] 250 DO Work Phone: Vital Signs Date Time Vital Sign Value Performing Clinician Facility 10-25-2023 12:59-0500 Body temperature 97.5 [degF] DO [employer] Work Phone: [facility] 10-25-2023 12:59-0500 Body weight 110.67 kg DO [employer] Work Phone: [facility] 10-25-2023 12:59-0500 Diastolic blood pressure 76 mm[Hg] DO [employer] Work Phone: [facility] 10-25-2023 12:59-0500 Heart rate 72 /min DO [employer] Work Phone: [facility] 10-25-2023 12:59-0500 Respiratory rate 16 /min DO Re[facility] House Work Phone: [facility] 10-25-2023 12:59-0500 SaO2% (BldA) [Mass fraction] 100 % DO Reese House Work Phone: [facility] 10-25-2023 12:59-0500 Systolic blood pressure 119 mm[Hg] DO Reese House Work Phone: [facility] 08-10-2023 11:04-0400 Diastolic blood pressure 90 mm[Hg] Luke Herrmann DO Work Phone: [facility] 08-10-2023 11:04-0400 Systolic blood pressure 120 mm[Hg] Luke Herrmann DO Work Phone: [facility] 08-10-2023 10:35-0400 Body height 162.6 cm Luke Herrmann DO Work Phone: [facility] 08-10-2023 10:35-0400 Body mass index (BMI) [Ratio] 42.57 kg/m2 Luke Herrmann DO Work Phone: [facility] 08-10-2023 10:35-0400 Body weight 112.49 kg Luke Herrmann DO Work Phone: [facility] 08-10-2023 10:35-0400 Heart rate 74 /min Luke Herrmann DO Work Phone: [facility] 04-20-2023 11:22-0400 Body height 165.1 cm DO Re[facility] House Work Phone: [facility] 04-20-2023 11:22-0400 Body temperature 98.4 [degF] DO [facility] Work Phone: [facility] 04-20-2023 11:22-040 Body weight 110.81 kg DO Reese House Work Phone: [facility] 04-20-2023 11:22-0400 Diastolic blood pressure 81 mm[Hg] DO Re[facility] House Work Phone: [facility] 04-20-2023 11:22-0400 Heart rate 86 /min DO Reese House Work Phone: [facility] 04-20-2023 11:22-0400 Respiratory rate 20 /min DO Re[facility] House Work Phone: [facility] 04-20-2023 11:22-0400 SaO2% (BldA) [Mass fraction] 97 % DO Re[facility] House Work Phone: [facility] 04-20-2023 11:22-0400 Systolic blood pressure 180 mm[Hg] DO [facility] Work Phone: [facility] 11-08-2022 10:34-0500 Body height 162.56 cm Reese P House Work Phone: [facility] 250 DO Work Phone: 11-08-2022 10:34-0500 Body mass index (BMI) [Ratio] 40.85 kg/m2 Reese P House Work Phone: [facility] 250 DO Work Phone: 11-08-2022 10:34-0500 Body surface area Derived from formula 2.11 m2 Reese P House Work Phone: [facility] 250 DO Work Phone: 11-08-2022 10:34-0500 Body weight 107.96 kg Resee P House Work Phone: [facility] 250 DO Work Phone: 11-08-2022 10:34-0500 Diastolic blood pressure 88 mm[Hg] Reese P House Work Phone: [facility] 250 DO Work Phone: 11-08-2022 10:34-0500 Heart rate 80 /min Reese P House Work Phone: [facility] 250 DO Work Phone: 11-08-2022 10:34-0500 Systolic blood pressure 138 mm[Hg] Reese P House Work Phone: [facility] 250 DO Work Phone: 10-13-2022 08:35-0500 Body temperature 97.8 [degF] DO Reese House Work Phone: [facility] 10-13-2022 08:35-0500 Body weight 106.7 kg DO Reese House Work Phone: [facility] 10-13-2022 08:35-0500 Diastolic blood pressure 78 mm[Hg] DO Reese House Work Phone: [facility] 10-13-2022 08:35-0500 Heart rate 79 /min DO Reese House Work Phone: [facility] 10-13-2022 08:35-0500 Respiratory rate 16 /min DO Reese House Work Phone: [facility] 10-13-2022 08:35-0500 SaO2% (BldA) [Mass fraction] 100 % DO Reese House Work Phone: [facility] 10-13-2022 08:35-0500 Systolic blood pressure 135 mm[Hg] DO Reese House Work Phone: [facility] 03-01-2022 09:02-0400 Body height 162.56 cm DO Reese House Work Phone: [facility] 03-01-2022 09:02-0400 Body mass index (BMI) [Ratio] 40.3 kg/m2 DO Reese House Work Phone: [facility] 03-01-2022 09:02-0400 Body weight 106.59 kg DO Reese House Work Phone: [facility] 03-01-2022 09:02-0400 Diastolic blood pressure 70 mm[Hg] DO Re[facility] House Work Phone: [facility] 03-01-2022 09:02-0400 Heart rate 76 /min DO Reese House Work Phone: [facility] 03-01-2022 09:02-0400 Respiratory rate 18 /min DO Reese House Work Phone: [facility] 03-01-2022 09:02-0400 SaO2% (BldA) [Mass fraction] 98 % DO Re[facility] Work Phone: [facility] 03-01-2022 09:02-0400 Systolic blood pressure 133 mm[Hg] DO Re[facility] Work Phone: [facility] 02-02-2022 13:50-0400 Body temperature 98 [degF] DO Re[facility] House Work Phone: [facility] 02-02-2022 13:50-0400 Body weight 110.67 kg DO Reese House Work Phone: [facility] 02-02-2022 13:50-0400 Diastolic blood pressure 72 mm[Hg] DO Reese House Work Phone: [facility] 02-02-2022 13:50-0400 Heart rate 80 /min DO Reese House Work Phone: [facility] 02-02-2022 13:50-0400 Respiratory rate 16 /min DO Reese House Work Phone: [facility] 02-02-2022 13:50-0400 SaO2% (BldA) [Mass fraction] 95 % DO Reese House Work Phone: [facility] 02-02-2022 13:50-0400 Systolic blood pressure 146 mm[Hg] DO Reese House Work Phone: [facility] 01-13-2022 08:19-0400 Body height 165.1 cm DO Reese House Work Phone: [facility] 12-28-2021 15:13-0400 Diastolic blood pressure 73 mm[Hg] DO Reese House Work Phone: [facility] 12-28-2021 15:13-0400 Heart rate 72 /min DO Reese House Work Phone: [facility] 12-28-2021 15:13-0400 Respiratory rate 18 /min DO Reese House Work Phone: [facility] 12-28-2021 15:13-0400 SaO2% (BldA) [Mass fraction] 95 % DO Re[facility] Work Phone: [facility] 12-28-2021 15:13-0400 Systolic blood pressure 141 mm[Hg] DO Re[facility] Work Phone: [facility] 12-28-2021 13:48-0400 Body temperature 98.1 [degF] DO Re[facility] Work Phone: [facility] 12-28-2021 13:48-0400 Inhaled oxygen flow rate 6 L/min DO Reese House Work Phone: [facility] 12-28-2021 11:39-0400 Body height 162.56 cm DO Reese House Work Phone: [facility] 12-28-2021 11:39-0400 Body mass index (BMI) [Ratio] 41.1 kg/m2 DO Re[facility] Work Phone: [facility] 12-28-2021 11:39-0400 Body weight 108.86 kg DO Reese [facility] Work Phone: [facility] 11-16-2021 09:35-0500 Body temperature 97.9 [degF] DO Re[facility] Work Phone: [facility] 11-16-2021 09:35-0500 Diastolic blood pressure 60 mm[Hg] DO Re[facility] Work Phone: [facility] 11-16-2021 09:35-0500 Heart rate 67 /min DO Reese [facility] Work Phone: [facility] 11-16-2021 09:35-0500 Respiratory rate 16 /min DO Re[facility] Work Phone: [facility] 11-16-2021 09:35-0500 SaO2% (BldA) [Mass fraction] 100 % DO Re[facility] House Work Phone: [facility] 11-16-2021 09:35-0500 Systolic blood pressure 118 mm[Hg] DO Re[facility] House Work Phone: [facility] 10-28-2021 11:19-0500 Diastolic blood pressure 84 mm[Hg] Reese Good House Work Phone: [facility] DO Work Phone: 10-28-2021 11:19-0500 Systolic blood pressure 152 mm[Hg] Reese Good House Work Phone: [facility] DO Work Phone: 10-28-2021 10:57-0500 Body height 162.56 cm Reese Good House Work Phone: [facility] 250 DO Work Phone: 10-28-2021 10:57-0500 Body mass index (BMI) [Ratio] 43.77 kg/m2 Reese Good [facility] Work Phone: [facility] 250 DO Work Phone: 10-28-2021 10:57-0500 Body surface area Derived from formula 2.17 m2 Reese Good [facility] Work Phone: [facility] 250 DO Work Phone: 10-28-2021 10:57-0500 Body weight 115.67 kg Reese P House Work Phone: [facility] 250 DO Work Phone: 10-28-2021 10:57-0500 Diastolic blood pressure 100 mm[Hg] Reese P House Work Phone: [facility] 250 DO Work Phone: 10-28-2021 10:57-0500 Heart rate 77 /min Reese P House Work Phone: [facility] 250 DO Work Phone: 10-28-2021 10:57-0500 Systolic blood pressure 165 mm[Hg] Reese P House Work Phone: [facility] 250 DO Work Phone: 10-11-2021 13:37-0500 Diastolic blood pressure 84 mm[Hg] Erese P House Work Phone: [facility] 250 DO Work Phone: 10-11-2021 13:37-0500 Heart rate 82 /min Reese P House Work Phone: [facility] 250 DO Work Phone: 10-11-2021 13:37-0500 Systolic blood pressure 160 mm[Hg] Reese P House Work Phone: [facility] 250 DO Work Phone: 10-11-2021 13:30-0500 Body height 162.56 cm Reese P House Work Phone: [facility] 250 DO Work Phone: 10-11-2021 13:30-0500 Body mass index (BMI) [Ratio] 44.29 kg/m2 Reese P House Work Phone: [facility] 250 DO Work Phone: 10-11-2021 13:30-0500 Body surface area Derived from formula 2.18 m2 Reese P House Work Phone: [facility] 250 DO Work Phone: 10-11-2021 13:30-0500 Body weight 117.03 kg Reese P House Work Phone: [facility] 250 DO Work Phone: 10-11-2021 13:30-0500 Diastolic blood pressure 100 mm[Hg] Reese P House Work Phone: [facility] 250 DO Work Phone: 10-11-2021 13:30-0500 Systolic blood pressure 160 mm[Hg] Reese P House Work Phone: [facility] 250 DO Work Phone: 10-05-2021 08:27-0500 28.8 1 Reese P House Work Phone: [facility] 250 DO Work Phone: Comment on above: [facility] 10-04-2021 12:36-0500 Body height 162.56 cm Reese P House Work Phone: [facility] [address] [place] Work Phone: 10-04-2021 12:36-0500 Body mass index (BMI) [Ratio] 44.11 kg/m2 Reese P House Work Phone: [facility] [address] [place] Work Phone: 10-04-2021 12:36-0500 Body surface area Derived from formula 2.18 m2 Reese P House Work Phone: [facility] [address] [place] Work Phone: 10-04-2021 12:36-0500 Body weight 116.58 kg Reese P House Work Phone: [facility] [address] [place] Work Phone: 10-04-2021 12:36-0500 Diastolic blood pressure 94 mm[Hg] Reese P House Work Phone: [facility] [address] [place] Work Phone: 10-04-2021 12:36-0500 Heart rate 72 /min Reese P House Work Phone: [facility] [address] [place] Work Phone: 10-04-2021 12:36-0500 Systolic blood pressure 158 mm[Hg] Reese P House Work Phone: [facility] [address] [place] Work Phone: 10-04-2021 12:36-0500 55 1 Reese P House Work Phone: [facility] [address] [place] Work Phone: Comment on above: [id number] 09-20-2021 12:36-0500 Body height 162.56 cm Reese P House Work Phone: [facility] 250 DO Work Phone: 09-20-2021 12:36-0500 Body mass index (BMI) [Ratio] 44.8 kg/m2 Reese P House Work Phone: [facility] 250 DO Work Phone: 09-20-2021 12:36-0500 Body surface area Derived from formula 2.19 m2 Reese P House Work Phone: [facility] 250 DO Work Phone: 09-20-2021 12:36-0500 Body weight 118.39 kg Reese P House Work Phone: [facility] 250 DO Work Phone: 09-20-2021 12:36-0500 Diastolic blood pressure 84 mm[Hg] Reese P House Work Phone: [facility] DO Work Phone: 09-20-2021 12:36-0500 Heart rate 74 /min Reese P House Work Phone: [facility] 250 DO Work Phone: 09-20-2021 12:36-0500 Systolic blood pressure 126 mm[Hg] Reese P House Work Phone: [facility] 250 DO Work Phone: 08-31-2021 14:50-0500 Body height 162.56 cm Reese P House Work Phone: [facility] 250 DO Work Phone: 08-31-2021 14:50-0500 Body mass index (BMI) [Ratio] 47.72 kg/m2 Reese P House Work Phone: [facility] DO Work Phone: 08-31-2021 14:50-0500 Body surface area Derived from formula 2.25 m2 Reese P House Work Phone: [facility] 250 DO Work Phone: 08-31-2021 14:50-0500 Body weight 126.1 kg Reese P House Work Phone: [facility] DO Work Phone: 08-31-2021 14:50-0500 Diastolic blood pressure 112 mm[Hg] Reese P House Work Phone: [facility] DO Work Phone: 08-31-2021 14:50-0500 Heart rate 84 /min Reese P House Work Phone: [facility] 250 DO Work Phone: 08-31-2021 14:50-0500 Systolic blood pressure 166 mm[Hg] Reese P House Work Phone: [facility] 250 DO Work Phone: 08-24-2021 12:10-0500 50 1 Reese P House Work Phone: [facility] 250 DO Work Phone: Comment on above: [id number] Encounters Encounter Date Encounter Type Care Provider Facility Start: 10-31-2023 End: 11-01-2023 ambulatory Ant Gregory MD Facility:[facility] Start: 10-25-2023 End: 10-25-2023 Registered Recurring DO Reese House Work Phone: [facility] Work Phone: Start: 10-25-2023 End: 10-25-2023 ambulatory DO Reese House Work Phone: [facility] Work Phone: Start: 08-10-2023 End: 08-10-2023 ambulatory [facility] Start: 08-10-2023 End: 08-10-2023 Office outpatient visit 25 minutes [facility] DO Work Phone: [facility] Comment on above: Coronary artery dise ase involving [place] coronary artery of [place] heart without angina pectoris; History of ST elevation myocardial infarction (STEMI); Primary hypertension; Ischemic cardiomyopathy; Mixed hyperlipidemia; Type 2 diabetes mellitus with other specified complication, unspecified whether 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 insulin use ([facility]); Class 3 severe obesity due to excess calories with serious comorbidity and body mass index (BMI) of 40.0 to 44.9 in adult ([facility]); Rheumatoid arthritis, involving unspecified site, unspecified whether rheumatoid factor present ([facility]); S/P right coronary artery (RCA) stent placement Start: 07-31-2023 End: 08-01-2023 ambulatory Ant Gregory MD Facility:[facility] Start: 07-24-2023 End: 07-24-2023 ambulatory DO Reese Nixon Work Phone: [facility] Work Phone: Start: 07-24-2023 End: 07-24-2023 Registered Recurring DO Reese House Work Phone: [facility] Work Phone: Start: 07-06-2023 End: 07-07-2023 ambulatory Ant Gregory MD Facility:[facility] Start: 06-27-[address] Reese Nixon Facility: Start: 06-21-2023 Rx Renewal Reese P Hous e Work Phone: [facility] DO Work Phone: Start: 04-20-2023 End: 04-20-2023 ambulatory DO Reese Nixon Work Phone: [facility] Work Phone: Start: 04-20-2023 End: 04-20-2023 Registered Recurring DO Reese Nixon Work Phone: [facility] Work Phone: Start: 2022 Rx Renewal Reese P Hous e Work Phone: [facility] 250 DO Work Phone: Start: 12-13-2022 Rx Renewal Reese P H[facility] e Work Phone: [facility] 250 DO Work Phone: Start: 11-30-2022 End: 11-30-2022 ambulatory Reese Nixon Facility:[facility] Start: 11-12-2022 End: 11-13-[address] LUKE HERRMANN Facility: Start: 11-08-[address] Luke Herrmann Facility: Start: 11-08-2022 FUV, Provider: Luke Herrmann, Status: Pen, Time: 10:10 AM Reese P House Work Phone: [facility] 250 DO Work Phone: Start: 11-08-2022 Office outpatient vi sit 25 minutes Reese P House Work Phone: [facility] 250 DO Work Phone: Start: 11-07-2022 Rx Renewal Reese P Hous [facility] Work Phone: [facility] [place] [facility] DO Work Phone: Start: 10-31-2022 Rx Renewal Reese P H[facility] e Work Phone: [facility] 250 DO Work Phone: Start: 10-13-2022 End: 10-13-2022 ambulatory DO Reese Nixon Work Phone: [facility] Work Phone: Start: 10-13-2022 End: 10-13-2022 Registered Recurring DO Reese Nixon Work Phone: [facility] Work Phone: Start: 09-01-2022 FUV, Provider: Luke Herrmann, Status: Pen, Time: 11:40 AM Reese P House Work Phone: [facility] 250 DO Work Phone: Start: 08-30-2022 Rx Change Reese P Hous e Work Phone: [facility] DO Work Phone: Start: 08-29-2022 End: 08-30-2022 ambulatory ZOE LATIF Facility:[facility] Start: 08-09-2022 Rx Renewal Reese P H[facility] e Work Phone: [facility] 250 DO Work Phone: Start: 06-16-2022 End: 06-17-[address] DOROTEO SAMAYOA Facility:[facility] Start: 05-30-2022 End: 05-31-2022 ambulatory ZOE LATIF Facility:[facility] Start: 04-30-2022 End: 05-01-[address] REESE NIXON Facility:[facility] Start: 03-21-2022 End: 03-22-[address] DOROTEO SAMAYOA Facility:[facility] Start: 03-01-2022 End: 03-01-2022 Admission to same day surgery center DO Reese Nixon Work Phone: [facility] [place] Start: 02-02-2022 End: 02-02-2022 Registered Recurring DO Reese Nixon Work Phone: [facility] Start: 01-26-2022 End: 01-27-[address] DOROTEO SAMAYOA Facility:[facility] Start: 12-28-2021 End: 12-28-2021 Admission to same day surgery center DO Reese Nixon Work Phone: [facility] [place] Start: 12-27-2021 End: 12-28-[address] DOROTEO SAMAYOA Facility:[facility] Start: 12-24-2021 End: 12-24-2021 Patient encounter procedure DO Reese Nixon Work Phone: [facility] Start: 12-21-2021 Rx Renewal Reese P Hous e Work Phone: [facility] 250 DO Work Phone: Start: 12-14-2021 End: 12-14-2021 Patient encounter procedure DO Reese Nixon Work Phone: [facility] Start: 12-08-2021 End: 12-09-[address] DOROTEO SAMAYOA Facility:[facility] Start: 11-16-2021 End: 11-16-2021 Admission to same day surgery center DO Reese Nixon Work Phone: [facility] Start: 11-04-2021 End: 11-04-2021 Patient encounter procedure DO Reese Hussain Work Phone: [facility] Start: 10-28-2021 Office outpatient vi sit 25 minutes Reese P House Work Phone: [facility] [facility] DO Work Phone: Start: 10-11-2021 Office outpatient vi sit 5 minutes Reese P House Work Phone: [facility] 250 DO Work Phone: Start: 10-04-2021 Patient encounter procedure Reese P House Work Phone: [facility] [employer] [address] [place] Work Phone: Start: 09-20-2021 Office outpatient vi sit 15 minutes Reese Nixon Work Phone: [facility] 250 DO Work Phone: Start: 09-20-2021 Rx Renewal Reese Good [facility] Work Phone: [facility] 250 DO Work Phone: Start: 09-03-2021 Telephone encounter Reese Nixon Work Phone: [facility] [employer] DO Work Phone: Start: 08-31-2021 Transitional care nikkie easoncleopatra srvc 7 day discharge Reese Nixon Work Phone: [facility] [employer] Perera DO Work Phone: Procedures Date Procedure Procedure Detail Performing Clinician Start: 08-09-2023 History of placement of stent for coronary artery disease S/P right coronary artery (RCA) stent placement Luke Steven DO Work Phone: Start: 02-21-2023 Dual energy X-ray absorptiometry DO Reese Safello Phone: Start: 03-01-2022 CT of chest without contrast DO Reese Safello Phone: Start: 02-07-2022 Positron emission tomography with computed tomography DO Reese Safello Phone: Start: 12-28-2021 Mammography of left breast specimen DO Reese Safello Phone: Start: 12-28-2021 Biopsy of breast DO Janay stewart Safello Phone: Start: 12-28-2021 Radionuclide sentine l lymph node study DO Reese Safello Phone: Start: 12-27-2021 Mammography of left breast DO Reese Safello Phone: Start: 12-27-2021 Ultrasonography guid ed needle localization of lesion of left breast DO Reese Safello Phone: Start: 11-16-2021 Mammography of left breast DO Reese [employer] Work Phone: Start: 11-16-2021 Core needle biopsy o f breast using ultrasound guidance DO Leigh [employer] Work Phone: Start: 11-04-2021 Ultrasonography of l eft breast DO [employer] Work Phone: Start: 11-04-2021 Bilateral mammography D O [employer] Work Phone: Start: 10-04-2021 Echocardiography Trace [email or web address] [email or web address] Work Phone: History of placement of stent for coronary artery disease Status post insertion of drug eluting coronary artery stent Reese [facility] [employer] Work Phone: History of placement of stent for coronary artery disease S/P right coronary artery (RCA) stent placement Luke Herrmann [employer] Work Phone: Lumpectomy of breast Reese [facility] [employer] Work Phone: Operative procedure on ankle Reese Good [employer] Work Phone: NEGATED: Highlighted row has not occurred! Total colonoscopy Reese [facility] [employer] Work Phone: Plan of Treatment Date Care Activity Detail Author Start: 08-10-2023 End: 08-10-2024 Alanine aminotransferase [Enzymatic activity/volume] in Serum or Plasma by With P-5'-P Alanine Aminotransferase Lab Routine Mixed hyperlipidemia Expected: 08/10/2023 (Approximate), Expires: 08/10/2024 [facility] Service Area Work Phone: Comment on above: Expected: 08/10/2023 (Approximate), Expi res: 08/10/2024 Start: 08-10-2023 End: 08-10-2024 Aspartate aminotransferase [Enzymatic activity/volume] in Serum or Plasma by With P-5'-P Aspartate Aminotransferase Lab Routine Mixed hyperlipidemia Expected: 08/10/2023 (Approximate), Expires: 08/10/2024 [facility] Work Phone: Comment on above: Expected: 08/10/2023 (Approximate), Expi res: 08/10/2024 Start: 08-10-2023 End: 08-10-2024 C reactive protein [Mass/volume] in Serum or Plasma by High sensitivity method High sensitivity CRP Lab Routine Coronary artery disease involving [place] coronary artery of [place] heart without angina pectoris Ischemic cardiomyopathy Expected: 08/10/2023 (Approximate), Expires: 08/10/2024 [facility] Work Phone: Comment on above: Expected: 08/10/2023 (Approximate), Expi res: 08/10/2024 Start: 08-10-2023 End: 08-10-2024 Lipid 1996 panel - Serum or Plasma Lipid Panel Lab Routine Mixed hyperlipidemia Expected: 08/10/2023 (Approximate), Expires: 08/10/2024 [facility] Work Phone: Comment on above: Expected: 08/10/2023 (Approximate), Expi res: 08/10/2024 Start: 06-27-2023 FUV, Provider: Luke Herrmann, Status: Pen, Time: 11:20 AM FUV, Provider: Luke Herrmann, Status: Pen, Time: 11:20 AM [facility] 250 DO Work Phone: Start: 06-16-2023 Influenza vaccination Influenza Vaccine (#1) [facility] Start: 11-08-2022 FUV, Provider: Luke Herrmann, Status: Pen, Time: 10:10 AM FUV, Provider: Luke Herrmann, Status: Pen, Time: 10:10 AM [facility] 250 DO Work Phone: Start: 09-01-2022 FUV, Provider: Luke Herrmann, Status: Pen, Time: 11:40 AM FUV, Provider: Luke Herrmann, Status: Pen, Time: 11:40 AM [facility] 250 DO Work Phone: Start: 05-10-2022 FUV, Provider: Luke Herrmann, Status: Pen, Time: 1:50 PM FUV, Provider: Luke Herrmann, Status: Pen, Time: 1:50 PM [facility] 250 DO Work Phone: Start: 12-07-2021 FUV, Provider: Luek Herrmann, Status: Pen, Time: 2:00 PM FUV, Provider: Luke Herrmann, Status: Pen, Time: 2:00 PM [facility] 250 DO Work Phone: Start: 10-27-2021 FUV, Provider: Luke Herrmann, Status: Pen, Time: 11:30 AM FUV, Provider: Luke Herrmann, Status: Pen, Time: 11:30 AM [facility] 250 DO Work Phone: Start: 10-11-2021 NURSEVST, Provider: ROSA STEPHENSON REAL ESTATE MANAGEMENT SPECIALIST 1,[id number], Status: Pen, Time: 1:00 PM NURSEVST, Provider: ROSA STEPHENSON REAL ESTATE MANAGEMENT SPECIALIST 1,[id number], Status: Pen, Time: 1:00 PM [facility] 250A [place] Work Phone: Start: 10-04-2021 ECHO, Provider: [place] [facility]TR[facility] 01,[id number], Status: Pen, Time: 1:30 PM ECHO, Provider: [place] [facility]TR[facility] 01,[id number], Status: Pen, Time: 1:30 PM [facility] 250 DO Work Phone: Start: 10-04-2021 FUV, Provider: Salima Penaloza, Status: Pen, Time: 12:30 PM FUV, Provider: Salima Penaloza, Status: Pen, Time: 12:30 PM [facility] 250 DO Work Phone: Start: 09-20-2021 FUV, Provider: Salima Penaloza, Status: Pen, Time: 12:30 PM FUV, Provider: Salima Penaloza, Status: Pen, Time: 12:30 PM [facility] 250 DO Work Phone: Start: 2006 Zoster Vaccines (1 of 2) Zoster Vaccines (1 of 2) [facility] Start: 1978 DTaP/Tdap/Td Vaccines (1 - Tdap) DTaP/Tdap/Td Vaccines (1 - Tdap) [facility] Start: 12-23-1975 Urine screening for protein Diabetes: Urine Protein Screening [facility] Start: 1974 Hepatitis C screening Hepatitis C Screening [facility] Start: 1966 Diabetic foot examination Diabetes: Foot Exam [facility] Start: 1966 Glaucoma screening Diabetes: Retinopathy Screening [facility] Start: 1962 Pneumococcal Vaccine: 65+ Years (1 - PCV) Pneumococcal Vaccine: 65+ Years (1 - PCV) [facility] Start: 06-24-1957 COVID-19 Vaccine (#1) COVID-19 Vaccine (#1) [facility] Start: 1956 Hemoglobin A1c measurement Diabetes: Hemoglobin A1C [facility] Start: 1956 Lipid panel Lipid Panel [facility] Start: 1956 Medicare Annual Wellness Visit Medicare Annual Wellness Visit (AWV) [facility] Start: 1956 Screening for malignant neoplasm of colon [facility] Start: 1956 Screening for osteoporosis Bone Density Scan [facility] Start: 1956 Thyroid stimulating hormone measurement TSH Level [facility] Computed tomography for radiotherapy planning [facility] MG Breast - bilatera l Diagnostic [facility] Patient referral [facility] Work Phone: [facility] [place] Payers Date Payer Category Payer Unknown 2022 Self-pay [id number] 2022 Unknown [id number] 2022 Unknown [id number] 2014 Medicare MEDICARE MEDICAR E PART A AND B [id number] 2014-Present [address] [place] [address] [id number] 1959 Medicare [id number] 1959 Unknown [id number] 1959 Unknown [id number] 1956 Unknown [id number] 2.16.840.1.722009.3.579.2.593 1956 Unknown [id number] 2.16.840.1.201767.3.579.2.593 1956 Unknown [id number] 2.16.840.1.630154.3.579.2.593 1956 Unknown [id number] 2.16.840.1.267873.3.579.2.593 1956 Unknown [id number] 2.16.840.1.561904.3.579.2.593 1956 Unknown [id number] 2.16.840.1.557184.3.579.2.593 1956 Unknown [id number] 2.16.840.1.905447.3.579.2.593 1956 Unknown [id number] 2.16.840.1.929353.3.579.2.593 1956 Unknown [id number] 2.16.840.1.661739.3.579.2.593 1956 Unknown [id number] 2.16.840.1.023303.3.579.2.593 1956 Unknown [id number] 2.16.840.1.473173.3.579.2.593 1956 Unknown [id number] 2.16.840.1.550317.3.579.2.593 1956 Unknown [id number] 2.16.840.1.700290.3.579.2.356 1956 Unknown [id number] 2.16.840.1.290588.3.579.2.356 1956 Unknown [id number] 2.16.840.1.406390.3.579.2.1244 1956 Unknown [id number] 2.16.840.1.872219.3.579.2.718 1956 Unknown [id number] 2.16.840.1.325637.3.579.2.718 1956 Unknown [id number] 2.16.840.1.405828.3.579.2.718 Unknown [id number] 2.16.840.1.685016.3.579.2.531 Unknown [id number] 2.16.840.1.273021.3.579.2.531 Social History Date Type Detail Facility Start: 08-10-2023 No alcohol use No alcohol use [facility] 250 DO Work Phone: Comment on above: 2 cups daily, diet p op occasional; 1/2 cup daily; Start: 01-13-2022 End: 10-25-2023 Tobacco smoking status WVIS Never smoked tobacco (finding) [facility] Start: 1955 Sex Assigned At Female F [facility] Start: 08-10-2023 Tobacco use and exposure Smokeless tobacco non-user [facility] Work Phone: Start: 08-10-2023 Alcohol intake Lifetime non-d amanda (finding) [facility] Work Phone: Start: 08-10-2023 Tobacco use panel [facility] Work Phone: Start: 1955 Sex Assigned At Not on file [facility] Work Phone: Start: 07-31-2023 End: 08-10-2023 Exposure to SARS-CoV-2 (event) Not sure [facility] Medical Equipment Procedure Code Equipment Code Equipment Origin al Text Equipment Identifier Dates Biopsy, breast, with lumpectomy Imaging lesion localization marker, implantable [id number] FDA Start: 12-28-2021 Drug-eluting coronary artery stent, gcn-iwunvkqzvqjoq-ce lymer-coated ()[id number] FDA Start: 08-23-2021 Drug-eluting coronary artery stent, hud-srrikhmjpdtfs-if lymer-coated ()[id number] FDA Start: 08-23-2021 Goals Date Patient Goal [...] nitrate usage recurrent hospitalizations. She had inferior NC July 2021 with AngioJet thrombectomy and 2 [...] No diagnosis found. documented in this encounter [facility] Work Phone: 08-10-2023 Instructions Ajith Metz MA [...] of your visit. documented in this encounter [facility] Work Phone: 07-25-2023 Progress note Note Date/Time July 24, 2023 11:51am [facility] [place] [address] Hem/Onc Follow Up Note - OP Signed Patient: Chucky Dunlap MR#: [id number] : 1955 Acct:[id number] Age/Sex: 67 / F Type: REG RCR [...] to Dr. Latif of pulmonary medicine at [place]. Her most recent follow-up with him after [...] scan was performed February 12, 2021 at [facility] revealing baseline osteopenia/decreased bone density. This will [...] the left lung base. Dr. Latif at [place] referred her to Dr. Patel of CT [...] PET/CT. Pathology invasive lobular carcinoma, ER 95%, AZ 0%, HER-2 nonamplified by FISH. 2. History [...] Negative for environmental allergies and food allergies. [facility] - Medical History Medical History: Medical History [...] mg tablets in a dose pack (Medrol (Hussain)) 4 mg PO DAILY #1 packet 07/24/23 [...] PET/CT. Pathology invasive lobular carcinoma, ER 95%, AZ 0%, HER-2 nonamplified by FISH. Oncotype DX [...] these nodules. We are requesting her outside [place] CT for our records. 04/20/2023: Chucky is [...] discuss pain and possible referral to another bioinformatics associate - in the interim; I will give [...] for coordination of care (as documented) and lrxs-fy-kakm counseling of patient and/or family. Dictated By: Lizzie Galeas APRN DD/ 1150 Signed By: <Electronically signed by DAY Galeas> 07/25/23 1423 [facility] Work Phone: 1([phone]) 336-382807-06-2023 Progress note Author Lizzie Galeas [facility] April 20, 2023 1:09pm Note Date/Time April 20, 2023 12:27 pm [facility] [place] [address] Hem/Onc Follow Up Note - OP Signed Patient: Chucky Dunlap MR#: [id number] : 1955 Acct:[id number] Age/Sex: 67 / F Type: REG RCR [...] to Dr. Latif of pulmonary medicine at [place]. Her most recent follow-up with him after [...] scan was performed February 12, 2021 at [facility] revealing baseline osteopenia/decreased bone density. This will [...] the left lung base. Dr. Latif at [place] referred her to Dr. Patel of CT [...] was performed 11/24/2021 revealing invasive lobular carcinoma, [place] histologic grade 2 (3+2+1 equal 6). Lobular [...] PET/CT. Pathology invasive lobular carcinoma, ER 95%, AZ 0%, HER-2 nonamplified by FISH. 2. History [...] Negative for environmental allergies and food allergies. [facility] - Medical History Medical History: Medical History [...] PET/CT. Pathology invasive lobular carcinoma, ER 95%, AZ 0%, HER-2 nonamplified by FISH. Oncotype DX [...] are favored to be rheumatoid and Dr. aLtif has personally contacted me regarding ongoing follow-up of these nodules. We are requesting her outside [place] CT for our records. 04/20/2023: Chucky is [...] continue to follow with serial imaging at [facility]. Last CT scan at [facility] - August2022. (3) ST elevation (STEMI) myocardial infarction The patient had ST elevation NC with left heart catheterization August 2021 showing [...] for coordination of care (as documented) and lihb-to-wqto counseling of patient and/or family. Dictated By: Lizzie Galeas APRN DD/ 1226 Signed By: <Electronically signed by DAY Galeas> 04/20/23 1309 [facility] Work Phone: 1(459) 204-717212-29-2022 Progress note Author Floresita Gonzalez [facility] October 13, 2022 9:14am Note Date/Time October 13, 2022 8:45am [facility] [address] [address] Hem/Onc Follow Up Note - OP Signed Patient: Chucky Dunlap MR#: [id number] : 1955 Acct:[id number] Age/Sex: 66 / F Type: REG RCR Copies to: DO Salty James, DO Zoe Latif, DO Doroteo Samayoa MD~ Subjective Date/Time of Service: Date of Service: 10/13/2022 Time of Service: 08:45 Chief Complaint: Patient is here today for a 6 month follow up visit for breast cancer HPI: 10/13/2022: W transferred her care from Dr. Patel to Dr. Latif of pulmonary medicine at [place]. Her most recent follow-up with him after [...] scan was performed February 12, 2021 at [facility] revealing baseline osteopenia/decreased bone density. This will [...] the left lung base. Dr. Latif at [place] referred her to Dr. Patel of CT [...] PET/CT. Pathology invasive lobular carcinoma, ER 95%, AZ 0%, HER-2 nonamplified by FISH. 2. History [...] review - Impressions Outside CT imaging from [place] is being requested for her records. Followed by Dr. Latif. Assessment and Plan - TNM Staging Staging: T2 N0 MX (2.4 cm, 4 lymph nodes negative) left breast cancer found incidentally on PET/CT. Pathology invasive lobular carcinoma, ER 95%, AZ 0%, HER-2 nonamplified by FISH. Oncotype DX [...] these nodules. We are requesting her outside [facility] for our records. Moderate complexity visit over [...] continue to follow with serial imaging at [facility]. (3) ST elevation (STEMI) myocardial infarction The patient had ST elevation NC with left heart catheterization August 2021 showing [...] for coordination of care (as documented) and mrxu-gz-ijbm counseling of patient and/or family. Dictated By: Floresita Gonzalez MD DD/ 0845 Signed By: <Electronically signed by MD Floresita Gonzalez> 10/13/22 0914 [facility] Work Phone: 1([phone]) 191-981806-20-2022 Progress note Author Della Louis [facility] April 04, 2022 3:32pm Note Date/Time April 04, 2022 11:2 3am [facility] [place] [address] Rad Onc Follow Up Note - OP Signed Patient: Chucky Dunlap MR#: [id number] : 1955 Acct:[id number] Age/Sex: 66 / F Type: REG RCR [...] was LCIS with associated microcalcifications. ER positive AZ negative HER-2 negative by FISH. December 28, [...] signed by Della Louis MD> 04/04/22 1532 [facility] Work Phone: 1([phone]) 366-360406-20-2022 Progress note Author Lizzie Galeas [facility] April 04, 2022 12:49pm Note Date/Time April 04, 2022 11:4 8am [facility] [place] at [address] [address] Hem/Onc Follow Up Note - OP Signed Patient: Chucky Dunlap MR#: [id number] : 1955 Acct:[id number] Age/Sex: 66 / F Type: REG RCR [...] She will have subsequent follow-up with Dr. Paetl after her PET/CT I will then coordinate [...] scan was performed February 12, 2021 at [facility] revealing baseline osteopenia/decreased bone density. This will [...] the left lung base. Dr. Latif at [place] referred her to Dr. Patel of CT surgery for possible biopsy. Prior to this referral she reports having a myocardial infarction in August 2021 with placement of stentsand was placed on antiplatelet therapy, therefore Dr. Ptael ordered a PET/CT which showed pleural nodules [...] lymphnode biopsy. This revealed invasive lobular carcinoma, [place] histologic grade 2, size 2.4 cm, associated [...] PET/CT. Pathology invasive lobular carcinoma, ER 95%, AZ 0%, HER-2 nonamplified by FISH. 2. History [...] Negative for environmental allergies and food allergies. [facility] - Medical History Medical History: Medical History [...] Results - Impressions Patient: Chucky Dunlap MR#: [id number] : 1955 Acct:[id number] Age/Sex: 66 / F ADM Date: 2 Loc: XT Room: Type: [facility] Attending Dr: Floresita Gonzalez MD Ordering Provider: [...] PET/CT. Pathology invasive lobular carcinoma, ER 95%, AZ 0%, HER-2 nonamplified by FISH. Oncotype DX [...] myocardial infarction The patient had ST elevation NC with left heart catheterization August 2021 showing [...] for coordination of care (as documented) and otpe-zf-lizr counseling of patient and/or family. Dictated By: Lizzie Galeas APRN DD/ 1148 Signed By: <Electronically signed by DAY Galeas> 04/04/22 1249 [facility] Work Phone: 1([phone]) 375-385204-21-2022 Progress note Author Floresita Gonzalez [facility] February 03, 2022 12:11pm Note Date/Time February 02, 2022 1:[address] [place] [address] [place] [address] Hem/Onc Follow Up Note - OP Signed Patient: Chucky Dunlap MR#: [id number] : 1955 Acct:[id number] Age/Sex: 66 / F Type: REG RCR Copies to: MD Reese Alvarado, DO Salty Gonzalez, DO Della Louis MD~ [...] scan was performed February 12, 2021 at [facility] revealing baseline osteopenia/decreased bone density. This will [...] the left lung base. Dr. Latif at [place] referred her to Dr. Patel of CT [...] PET/CT. Pathology invasive lobular carcinoma, ER 95%, AZ 0%, HER-2 nonamplified by FISH. 2. History [...] Negative for environmental allergies and food allergies. [facility] - History Attestation statement: The following information [...] M.D.09/29/2021 11:44 AM 02/12/2021 DEXA scan at [facility]: AP spine T score -1.4, osteopenia Left femoral neck T score -1.3, osteopenia Right femoral neck T score -1.1, osteopenia Assessment and Plan - TNM Staging Staging: T2 N0 MX (2.4 cm, 4 lymph nodes negative) left breast cancer found incidentally on PET/CT. Pathology invasive lobular carcinoma, ER 95%, AZ 0%, HER-2 nonamplified by FISH. Oncotype DX [...] myocardial infarction The patient had ST elevation NC with left heart catheterization August 2021 showing [...] for coordination of care (as documented) and tnbw-oh-edeu counseling of patient and/or family. Dictated By: Floresita Gonzalez MD DD/ 1353 Signed By: <Electronically signed by MD Floresita Gonzalez> 02/03/22 1211 [facility] Work Phone: 1([phone]) 143-301303-31-2022 Consult note Author Floresita Gonzalez [facility] January 13, 2022 3:36pm Note Date/Time January 13, 2022 8:3 2am [facility] [place] [address] Hem/Onc Consult Note - OP Signed Patient: Chucky Dunlap MR#: [id number] : 1955 Acct:[id number] Age/Sex: 66 / F Type: REG RCR [...] node negative invasive lobular carcinoma. ER 95%, [place] 0, HER-2/ortiz 2+ by IHC (indeterminate) but [...] the left lung base. Dr. Latif at [place] referred her to Dr. Patel of CT [...] was performed 11/24/2021 revealing invasive lobular carcinoma, [place] histologic grade 2 (3+2+1 equal 6). 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 Estrogen receptor +95%, progesterone receptor -0%, HER-2/ortiz was equivocal by IHC but negative by FISH. She was referred to Dr. Gonzalez for left breast lumpectomy with sentinel lymphnode biopsy. This revealed invasive lobular carcinoma, [place] histologic grade 2, size 2.4 cm, associated [...] and to determine further plan of therapy. [facility] - History Attestation statement: The following information [...] PET/CT. Pathology invasive lobular carcinoma, ER 95%, AZ 0%, HER-2 nonamplified by FISH. 2. History [...] PET/CT. Pathology invasive lobular carcinoma, ER 95%, AZ 0%, HER-2 nonamplified by FISH. (1) Malignant [...] myocardial infarction The patient had ST elevation NC with left heart catheterization August 2021 showing [...] for coordination of care (as documented) and rjsj-ay-zrey counseling of patient and/or family. Dictated By: Floresita Gonzalez MD DD/ 0832 Signed By: <Electronically signed by MD Floresita Gonzalez> 01/13/22 1536 [facility] Work Phone: 1([phone]) 288-206603-31-2022 Consult note Author Della Louis [facility] January 13, 2022 10:04am Note Date/Time January 12, 2022 3:4 7pm [facility] [place] [address] Rad Onc Consult Note - OP Signed Patient: Chucky Dunlap MR#: [id number] : 1955 Acct:[id number] Age/Sex: 66 / F Type: REG RCR [...] was LCIS with associated microcalcifications. ER positive [place] negative HER-2 negative by FISH. December 28, [...] Oncotype DX as well as antihormonal therapy. [facility] - Medical History Medical History: Medical History [...] signed by Della Louis MD> 01/13/22 1004 [facility] Work Phone: Chief complaint Narrative - [...] use either lower dose ARB or HAYLEE [facility] [employer] DO Work Phone: Chief complaint Narrative [...] use either lower dose ARB or HAYLEE [facility] [employer] ID Work Phone: Chief complaint Narrative - Reported* [...] use either lower dose ARB or HAYLEE [facility] Work Phone: Evaluation noteNo assessment information available [facility] Work Phone: Evaluation note* Diagnosis Onset Date Resolution Status Breast cancer, left breast a cute ST elevation (STEMI) myocardial infarction acute Abnormal positron emission t omography (PET) scan of head chronic [id number] chronic Pulmonary nodules/lesions, multiple chronic [facility] Work Phone: evaluation note* Diagnosis Onset Date Resolution Status Breast cancer, left breast a cute Abnormal positron emission t omography (PET) scan of head chronic [id number] chronic Osteopenia chronic Pulmonary nodules/lesions, multiple chronic ST elevation (STEMI) myocardial infarction chronic Use of aromatase inhibitors chronic [facility] Work Phone: evaluation note* Diagnosis Onset Date Resolution Status Breast cancer, left breast a cute Abnormal positron emission t omography (PET) scan of head chronic [id number] chronic Osteopenia chronic Pulmonary nodules/lesions, multiple chronic Rheumatoid arthritis chronic Skin candidiasis chronic ST elevation (STEMI) myocardial infarction chronic Use of aromatase inhibitors chronic [facility] Work Phone: Evaluation note* Diagnosis Coronary artery disease involving [place] coronary artery of [place] heart without angina pectoris History of ST elevation myocardial infarction (STEMI) Primary hypertension Unspecified essential hypertension Ischemic cardiomyopathy Other specified forms of chronic ischemic heart disease Mixed hyperlipidemia Type 2 diabetes mellitus with other specified complication, unspecified whether [facility] insulin use ([facility]) Class 3 severe obesity due to excess calories with serious comorbidity and body mass index (BMI) of 40.0 to 44.9 in adult ([facility]) Rheumatoid arthritis, involving unspecified site, unspecified whether rheumatoid factor present ([facility]) S/P right coronary artery (RCA) stent placement documented in this encounter [facility] Work Phone: History of Present illness Narrative* [...] denies medication side effects. Due For: electrolytes. -[facility] 250 DO Work Phone: Hospital Discharge instructionsAmbulatory Orders* Obtain Medical Records From: Time Frame: 1 Day, Location: Determined By Patient * Place on Tumor Board Time Frame: 1 Week, Location: Determined By Patient [facility] Work Phone: Progress note Author Floresita Gonzalez [facility] October 13, 2022 9:14am Note Date/Time October 13, 2022 8:45am [facility] [place] [address] Hem/Onc Follow Up Note - OP Signed Patient: Chucky Dunlap MR#: [id number] : 1955 Acct:[id number] Age/Sex: 66 / F Type: REG RCR Copies to: DO Salty James, DO Zoe Latif, DO Doroteo Samayoa MD~ Subjective Date/Time of Service: Date of Service: 10/13/2022 Time of Service: 08:45 Chief Complaint: Patient is here today for a 6 month follow up visit for breast cancer HPI: 10/13/2022: W transferred her care from Dr. Patel to Dr. Latif of pulmonary medicine at [place]. Her most recent follow-up with him after [...] scan was performed February 12, 2021 at [facility] revealing baseline osteopenia/decreased bone density. This will [...] the left lung base. Dr. Latif at [place] referred her to Dr. Patel of CT [...] was performed 11/24/2021 revealing invasive lobular carcinoma, [place] histologic grade 2 (3+2+1 equal 6). 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 Estrogen receptor +95%, progesterone receptor -0%, HER-2/ortiz was equivocal by IHC but negative by FISH. She was referred to Dr. Gonzalez for left breast lumpectomy with sentinel lymph node biopsy. This revealed invasive lobular carcinoma, [place] histologic grade 2, size 2.4 cm, associated [...] PET/CT. Pathology invasive lobular carcinoma, ER 95%, AZ 0%, HER-2 nonamplified by FISH. 2. History [...] Negative for environmental allergies and food allergies. [facility] - History Attestation statement: The following information [...] review - Impressions Outside CT imaging from [place] is being requested for her records. Followed by Dr. Latif. Assessment and Plan - TNM Staging Staging: T2 N0 MX (2.4 cm, 4 lymph nodes negative) left breast cancer found incidentally on PET/CT. Pathology invasive lobular carcinoma, ER 95%, AZ 0%, HER-2 nonamplified by FISH. Oncotype DX [...] these nodules. We are requesting her outside [facility] for our records. Moderate complexity visit over [...] continue to follow with serial imaging at [facility]. (3) ST elevation (STEMI) myocardial infarction The patient had ST elevation NC with left heart catheterization August 2021 showing [...] for coordination of care (as documented) and [id number] counseling of patient and/or family. Dictated By: Floresita Gonzalez MD DD/ 0845 Signed By: <Electronically signed by MD Floresita Gonzalez> 10/13/22 0914 [facility] Work Phone: Reason for referral (narrative)* Consultation (Routine) - Authorized Specialty Diagnoses / Procedures Referred By Contac t Referred To Contact Cardiology Diagnoses Coronary artery disease involving [place] coronary artery of [place] heart without angina pectoris Primary hypertension Ischemic cardiomyopathy Procedures Follow Up In Cardiology Luke Herrmann DO [address] [place] [address] 2, [address] [address] Luke Herrmann DO [address] [place] [address] 2, [address] [place] [address] Referral ID Status Reason Start Date Expiration Date V isits Requested Visits Authorized [id number] Authorized 08/10/2023 08/09/2024 1 1 [facility] Work Phone: Family History No Family History [...] * She sustained a very large inferior NC in August 2021 with extensive AngioJet thrombectomy [...] time. She has a history of inferior NC in 2020, with primary AngioJet thrombectomy and [...] * She has been following with her surgical elastic knitter and bioinformatics associate and notably has lung nodules. Summary Purpose [...] positron emission tomography (PET) scan of head [id number] Pulmonary nodules/lesions, multiple Chief Complaint r91.8 Chief Complaint Breast Cancer Reason for Visit Breast cancer, left breast Abnormal positron emission tomography (PET) scan of head [id number] Osteopenia Pulmonary nodules/lesions, multiple ST elevation (STEMI) myocardial infarction Use of aromatase inhibitors Chief Complaint Breast Cancer Reason for Visit Breast cancer, left breast Abnormal positron emission tomography (PET) scan of head [id number] Osteopenia Pulmonary nodules/lesions, multiple Rheumatoid arthritis Skin candidiasis ST elevation (STEMI) myocardial infarction Use of aromatase inhibitors Additional Source Comments INFORMATION SOURCE (unrecogn ized section and content) DATE CREATED AUTHOR 10/06/2021 [facility] DATE CREATED AUTHOR AUTHOR'S ORGANIZ ATION 10/29/2021 [employer] DATE CREATED AUTHOR AUTHOR'S ORGANIZ ATION 11/14/2022 [facility] DATE CREATED AUTHOR AUTHOR'S ORGANIZ ATION 06/28/2023 [facility] DATE CREATED AUTHOR AUTHOR'S ORGANIZ ATION 08/13/2023 [facility] DATE CREATED AUTHOR AUTHOR'S ORGANIZ ATION 10/26/2023 [facility] DATE CREATED AUTHOR AUTHOR'S ORGANIZ ATION 11/02/2023 [facility] l Care Teams (unrecognized sec tion and [...] Active Floresita Gonzalez MD Attending Provider Active 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 [employer] provides no warranty or guarantee of the accuracy or completeness of information in this document.
[2023-11-02 13:08] LABS: Thyroid Stimulating Hormone 0.407 uIU/mL (0.358-3.740)
== END 2023-11-02 12:38 | disposition home or self-care (01) ==
LOC: LAB 12:37
PROVIDERS: PCP Family Medicine; Visit Provider Family Medicine
DX: E03.9 Hypothyroidism, unspecified (principal); E11.9 Type 2 diabetes mellitus without complications; M06.9 Rheumatoid arthritis, unspecified; C50.912 Malignant neoplasm of unspecified site of left female breast
CPT/HCPCS: 36415; 84436; 84443

== ENCOUNTER 2023-12-08 07:23 | Outpatient (RCR) | payer MEDICARE, OTHER, SELFPAY ==
[2023-11-17 09:03] VITALS: BP 152/77; PULSE 86; TEMP 36.5; O2SAT 100
[2023-11-17] MEDS: MALTOSE IV (09:32)
[2023-11-17] MEDS: ABATACEPT IV (09:32)
[2023-11-17] MEDS: SODIUM CHLORIDE 0.9% IV (09:32)
[2023-11-17 10:33] VITALS: BP 128/70; PULSE 70; RESP 18; TEMP 36.7; O2SAT 98
--- NOTE | 2023-11-17 10:35 | PC.NURSE ---
1315 infusion completed, tolerated well, no s/s of reaction. flushed line with 20 ml of ns, IV dc'd catheter intact, site clear, cottonball/coban applied. Released ambulatory
[2023-12-08] MEDS: ABATACEPT IV (10:43)
[2023-12-08] MEDS: SODIUM CHLORIDE 0.9% IV (10:43)
[2023-12-08] MEDS: MALTOSE IV (10:43)
[2023-12-08 10:45] VITALS: BP 134/78; PULSE 87; RESP 16; TEMP 36.5; O2SAT 100
--- NOTE | 2023-12-08 11:38 | PC.NURSE ---
1105 Infusion completed. flushed line with NSS. IV dc'd catheter intact site clear, cottonball and coban applied. Released ambulatory
--- NOTE | 2023-12-08 11:39 | PC.NURSE ---
1030 Contacted central scheduling, patient sccheduled out until April for monthly infusions
== END 2023-12-14 23:59 | disposition home or self-care (01) ==
LOC: INF 07:23
PROVIDERS: PCP Family Medicine
DX: M05.9 Rheumatoid arthritis with rheumatoid factor, unspecified (principal)
CPT/HCPCS: 36415; 82042; 82565; 82570; 83516; 84156; 84460; 85007; 85027; 85598; 85613; 85652; 85732; 86037; 86038; 86140; 86146; 86147; 86160; 86225; 86235; 86880; 96365; J0129

== ENCOUNTER 2023-12-08 08:59 | Outpatient (OUT) | payer MEDICARE, OTHER, SELFPAY ==
--- OUTSIDE RECORDS SUMMARY | 2023-12-08 09:17 | XMS_ITS | CCD ---
Author Name Unknown Address [address] [place] [address] Organization [facility] Care Team Providers Care Barge Captain Name Role Phone Hussain Reese Good Unavailable Unavailable Unavailable DO Reese Nixon Primary Care Provider MD Marcin Patel Attending Provider DO Salty Gonzalez Attending Provider DO Salty Gonzalez Referring Provider [phone] MD Floresita Gonzalez Attending Provider DO Reese Nixon Primary Care Provider MD Marcin Patel Attending Provider DO Reese Nixon Primary Care Provider [phone] DO Salty Gonzalez Referring Provider [phone] MD Floresita Gonzalez Attending Provider [phone] RASHIDA, DR SADLER Attending Unavailable HALADAY, DR [...] HALADAY, DR SADLER Consulting Unavailable HUSSAIN, DR LIEGH Primary Care Unavailable STEVEN, DR LUKE Cordoba Attending Unavailabl e STEVEN, DR LUKE Cordoba Admitting Unavailabl e HUSSAIN, [...] Care Unavailable HOUSE, DR LEIGH Attending Unavailable COLUMBIA, DR LEIGH Admitting Unavailable HOUSE, DR LEIGH Primary Care Unavailable SPARTA, DR ISAAC Siu Consulting Unavailable HOUSE, DR LEIGH Consulting Unavailable Mascot, DO Leigh Primary Care Provider DO Salty Gonzalez Referring Provider MD Floresita Gonzalez Attending Provider Hussain, Dr. Reese Verduzco [facility] Lisava iledison Herrmann, Dr. Luke Lloyd Attending Sheila Herrmann, Dr. Luke Lloyd Referring Sehila Nixon, Dr. Reese Verduzco [facility] Lisava dora Herrmann, Dr. Luke Lloyd Attending Sheila Nixon, DO Leigh Primary Care Provider DO Salty Gonzalez Referring Provider MD Floresita Gonzalez Attending Provider Mascot Reese KELLER Primary Care Provider LUKE HERRMANN Attending Unavailable HUSSAIN, REESE VERDUZCO Primary Care Unavailab le Mascot, DO Leigh Primary Care Provider DO Salty Gonzalez Referring Provider [phone] MD Floresita Gonzalez Attending Provider Ant Gregory MD Attending Unavailable REESE NIXON Primary Care Unavailable Ant Gregory MD Attending Unavailable REESE NIXON Primary Care Unavailable Ant Gregory MD Attending Unavailable REESE NIXON Primary Care Unavailable Floresita Gonzalez Admitting Unavailable Floresita Gonzalez Attending Unavailable Salty Gonzalez Referring Unavailable Reese Nixon Primary Care Unavailable Medications Current Medications Medication [...] sources) P2Y12 Platelet Inhibitor Start: 09-03-2021 End: 08-09-2024 take 75 mg by mouth once daily [...] 7:15am Start: 10-12-2021 take 0.5 tablet by out once daily Spironolactone 25 MG Oral Tablet TAKE 0.5 TABLET Daily Quantity: 45 Refills: 3 Ordered: 12-Oct-2021 Salima Nguyễn Start : 12-Oct-2021 Active new start Completed/Discontinued Medications Medication Drug Class(es) Dates Sig (Normalized) Sig (Original) anastrozole 1 mg oral tablet (13 sources) Aromatase Inhibitor Start: 02-03-20 End: 04-04-20 take 1 mg by mouth once daily Anastrozole Discontinued 1 MG PO Daily February 01, 2022 11:00pm April 04, 2022 10:47am aspirin 81 mg delayed release oral tablet (20 sources) Platelet Aggregation Inhibitor, Nonsteroidal Anti-inflammatory Drug Start: 08-27-20 End: 10-25-19 take 81 mg by mouth once daily Aspirin Discontinued 81 MG PO Daily December 14, 2021 2:19pm October 25, 2023 12:56pm colchicine 0.6 mg oral tablet (13 sources) Start: 08-27-20 End: 12-15-19 take 0.6 mg by mouth once daily Colchicine Discontinued 0.6 MG PO Daily August 27, 2021 12:00am December 14, 2021 [...] Diuretic, Angiotensin 2 Receptor Althea Start: 08-26-20 End: 08-27-20 21 take 1 tablet by mouth once daily Olmesartan-Hydrochlor othiazide Discontinued 1 TAB PO Daily August 26, 2021 12:00am August 27, 2021 2:52pm hydroxychloroquine sulfate 200 mg oral tablet (7 sources) Antimalarial, Antirheumatic Agent Start: 12-15-19 End: 10-25-19 24 take 200 mg by mouth once daily in the morning Hydroxychloroquine Discontinued 200 MG PO Every morning December 14, 2021 12:00am October 25, 2023 12:56pm 3 ml insulin lispro 100 unt/ml pen injector (7 sources) Insulin Analog Start: 08-23-20 End: 08-26-20 Insulin Lispro (Humalog Kwikpen Insulin) 100 unit/mL Insulin Pen Discontinued SUBCUT August 23, 2021 12:00am August 26, 2021 2:22pm leflunomide 20 mg oral tablet (13 sources) Antirheumatic Agent Start: 08-23-20 End: 10-25-19 take 20 mg by mouth once daily Leflunomide Discontinued 20 MG PO Daily August 23, 2021 12:00am October 25, 2023 12:59pm letrozole 2.5 mg oral tablet (6 sources) Aromatase Inhibitor Start: 04-20-20 End: 08-01-20 take 2.5 mg by mouth once daily Letrozole Discontinued 2.5 MG PO Daily July 25, 2023 1:23pm August 01, 2023 7:19am methylPREDNISolone 4 mg oral tablet (1 source) Corticosteroid Start: 07-24-20 End: 10-25-19 24 take 1 tablet by mouth once daily Methylprednisolone (Medrol (Hussain)) 4 mg Tablets,Dose Pack Discontinued 4 MG PO Daily July 23, 2023 11:00pm October 25, 2023 12:57pm mometasone furoate 1 mg/ml topical cream (5 sources) Corticosteroid Start: 02-03-20 End: 10-25-19 Mometasone Discontinued 1 APPLIC TOPICAL Daily February 01, 2022 11:00pm October 25, 2023 [...] (5 sources) Prophylactic aromatase inhibitors given; Translations: [[facility] (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 aromatase inhibitors] 02-03-2022 Episodic Other aftercare (4 sources) [facility] (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 aromatase inhibitors; Translations: [Use of aromatase inhibitors] 10-13-2022 Episodic Other aftercare (1 source) 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; Translations: [OTH [facility] CURRENT DRUG THERAPY] Onset: 11-14-2022 Episodic Other [...] abnormal; Translations: [Abnormal brain scan] 01-13-2022 Episodic Rheumatoid arthritis and related disease (20 sources) Rheumatoid arthritis; Translations: [Rheumatoid arthritis] Onset: 06-16-2022 Chronic Thyroid disorders (20 sources) Hypothyroidism; Translations: [Unspecified acquired hypothyroidism] Onset: 08-09-2023 08-09-2023 Chronic Unclassified (1 source) Malignant neoplasm of upper-outer quadrant of left female breast; Translations: [Malignant neoplasm of upper-outer quadrant of left female breast] Onset: 12-04-2023 Past or Other Problems Problem Classification Problem Date Documented Da te Episodic/Chronic Abdominal pain (4 sources) Right upper quadrant pain; Translations: [RIGHT UPPER QUADRANT PAIN] Onset: 04-30-2022 Episodic Unclassified (20 sources) Never smoked tobacco; Translations: [Never a smoker] Unclassified (1 source) Onset: 08-10-2023 08-10-2023 Results Test Name Value Interpretation Reference Range Facility MM diagnostic mammo BI w/CAD on 12-04-2023 MM diagnostic mammo BI w/CAD [facility] [place] [address] Mammography Report Signed Patient: Chucky Dunlap MR#: [id number] : 1955 Acct:[id number] Age/Sex: 67 / F ADM Date: 12/04/23 Loc: XT Room: Type: [facility] Attending Dr: Floresita Gonzalez MD Copies to: MD Reese Paulino DO Fredric Itzkowitz, DO Ordering Provider: Floresita Gonzalez MD Date of Service: 12/04/23 MM/MM diagnostic mammo BI w/CAD: hx of breast cancer CLINICAL DATA: Screening for malignancy. BILATERAL SCREENING MAMMOGRAMS - FULL FIELD DIGITAL WITH TOMOSYNTHESIS AND CAD Tomosynthesis craniocaudal and mediolateral oblique views of both breasts were obtained using low- dose digital technique. Comparison is made to prior studies from 11/30/2022, 12/27/2021, and 11/04/2021. This examination was reviewed with the aid of CAD. There are scattered fibroglandular densities. There is evidence of previous lumpectomy in the left breast. Surgical clips are noted in the left axilla and left breast similar to the prior exam. Benign-appearing calcifications are present. There are no dominant masses, typically malignant calcifications or architectural distortion. There has been no significant interval change. MM/MM diagnostic mammo BI w/CAD IMPRESSION: NO MAMMOGRAPHIC EVIDENCE OF MALIGNANCY. ROUTINE FOLLOW-UP IS RECOMMENDED IN ONE YEAR. RESULT CODE: 2 Benign Findings(s) DENSITY CODE: 2 (approximately 25-50% glandular) FOLLOW UP: 1YR The false-negative rate of mammography is approximately 10-percent. Management of a palpable abnormality must be based on clinical grounds. Patient was entered into a reminder system with a target due date for the next mammogram. Impression dictated by: Vito Thomas M.D.12/04/2023 2:47 PM Dictation Location: [facility] Transcribed By: [facility] 12/04/23 1447 Dictated By: Vito Thomas II, MD 12/04/23 1441 Signed By: 12/04/23 1447 [facility] Controlled Substances Agreem entson 11-01-2023 Controlled Substances Agreements [id number] 21#1.00[facility] Outside Recordson 10-31-2023 Outside Records [id number] 841#1.00[facility] [facility] [employer] 10-04-2023 Outside Records [id number] 782#1.00[facility] Outside Recordson 09-19-2023 Outside Records [id number]#1.00[facility] Outside Record[employer] 08-30-2023 Outside Records [id number] 9#1.00[facility] Patient Provided Health Data on 08-03-2023 Patient Provided Health Data [id number] 46#1.00[facility] Patient Handouton 07-14-2023 Patient Handout [id number] 92#1.00[facility] CBC AUTO DIFFon 11-12-2022 BASO # 0.1 103/ul Normal 0.0-0.1 [facility] Comment on above: Performed By: #### C BC #### [facility] [address] [address] [address] Jessica Saravia Basophils/100 WBC (Bld) 1.4 % Normal 0.2-2.0 [facility] Comment on above: Performed By: #### C BC #### [facility] [address] [place] [address] Dr. Jessica Saravia EO # 0.4 103/ul Normal 0.0-0.7 [facility] Comment on above: Performed By: #### C BC #### [facility] [address] [address] [address] Jessica Saravia Eosinophils/100 WBC (Bld) 6.1 % Normal 0.9-7.0 [facility] Comment on above: Performed By: #### C BC #### [facility] [address] [place] [address] Dr. Jessica Saravia Erythrocyte distribution width (RBC) [Ratio] 14.9 % Normal 11.0-15.0 [facility] Comment on above: Performed By: #### C BC #### [facility] [address] [place] [address] Dr. Jessica Saravia Hematocrit (Bld) [Volume fraction] 34.7 % Critically low 36.0-48.0 [facility] Comment on above: Performed By: #### C BC #### [facility] [address] [place] [address] Dr. Jessica Saravia Hemoglobin (Bld) [Mass/Vol] 11.3 g/dL Critically low 12.0-16.0 [facility] Comment on above: Performed By: #### C BC #### [facility] [address] [place] [address] Dr. Jessica Saravia IG # 0.03 10e3/ul Normal 0.00-0.03 [facility] Comment on above: Performed By: #### C BC #### [facility] [address] [place] [address] Dr. Jessica Saravia IG % 0.4 % Normal 0.0-0.5 [facility] Comment on above: Performed By: #### C BC #### [facility] [address] [place] [address] Dr. Jessica Saravia LYMPH # 1.4 103/ul Normal 1.2-3.8 [facility] Comment on above: Performed By: #### C BC #### [facility] [address] [place] [address] Dr. Jessica Saravia Lymphocytes/100 WBC (Bld) 20.4 % Critically low 20.5-60.0 [facility] Comment on above: Performed By: #### C BC #### [facility] [address] [place] [address] Dr. Jessica Saravia MANUAL DIFF REQ NO Normal [facility] Comment on above: Performed By: #### C BC #### [facility] [address] [place] [address] Dr. Jessica Saravia MCH (RBC) [Entitic mass] 27.5 pg Normal 26.7-34.0 [facility] Comment on above: Performed By: #### C BC #### [facility] [address] [address] [address] Jessica Saravia MCHC (RBC) [Mass/Vol] 32.6 g/dL Normal 29.9-35.2 [facility] Comment on above: Performed By: #### C BC #### [facility] [address] [address] [address] Jessica Saravia MCV (RBC) [Entitic vol] 84.4 fL Normal 81.0-99.0 [facility] Comment on above: Performed By: #### C BC #### [facility] [address] [place] [address] Dr. Jessica Saravia MONO # 0.8 103/ul Normal 0.3-0.8 [facility] Comment on above: Performed By: #### C BC #### [facility] [address] [place] [address] Dr. Jessica Saravia Monocytes/100 WBC (Bld) 12.1 % Critically high 1.7-12. 0 [facility] Comment on above: Performed By: #### C BC #### [facility] [address] [place] [address] Dr. Jessica Saravia NEUT # 4.1 103/ul Normal 1.4-6.5 [facility] Comment on above: Performed By: #### C BC #### [facility] [address] [place] [address] Dr. Jessica Saravia Neutrophils/100 WBC (Bld) 59.6 % Normal 43.0-75.0 [facility] Comment on above: Performed By: #### C BC #### [facility] [address] [place] [address] Dr. Jessica Saravia Platelet mean volume (Bld) [Entitic vol] 11.0 fL Normal 9.5-13.5 [facility] Comment on above: Performed By: #### C BC #### [facility] [address] [place] [address] Dr. Jessica Saravia PLT 236 103/ul Normal 150-450 [facility] Comment on above: Performed By: #### C BC #### [facility] [address] [address] [address] Jessica Saravia RBC 4.11 106/ul Critically low 4.20-5.40 [facility] Comment on above: Performed By: #### C BC #### [facility] [address] [address] [address] Jessica Saravia WBC 6.9 103/ul Normal 4.0-11.0 [facility] Comment on above: Performed By: #### C BC #### [facility] [address] [address] [address] Jessica Saravia CREATININEon 11-12-2022 Creatinine [Mass/Vol] 0.85 mg/dL Normal 0.55-1.02 [facility] Comment on above: Performed By: #### L IVER #### [facility] [address] [place] [address] Dr. Jessica Saravia EGFR-AF GRENADIAN >60 Normal >=60 [facility] Comment on above: Performed By: #### L IVER #### [facility] [address] [place] [address] Dr. Jessica Saravia EGFR-NON AF GRENADIAN >60 Normal >=60 [facility] Comment on above: Performed By: #### L IVER #### [facility] [address] [place] [address] Dr. Jessica Saravia LIPID PROFILEon 11-12-2022 CHOL-HDL RATIO NORM SEE BELOW Normal [facility] Comment on above: Result Comment: 3.3 - 4.4 LOW RISK 4.4 - 7.1 AVERAGE RISK 7.1 - 11.0 MODERATE RISK >11.0 HIGH RISK Performed By: #### C BC #### [facility] [address] [place] [address] Dr. Jessica Saravia Cholesterol [Mass/Vol] 171 mg/dL Normal <=200 [facility] Comment on above: Performed By: #### C BC #### [facility] [address] [place] [address] Dr. Jessica Saravia Cholesterol in HDL [Mass/Vol] 33 mg/dL Critically low 40-60 [facility] Comment on above: Performed By: #### C BC #### [facility] [address] [address] [address] Jessica Saravia Cholesterol in LDL [Mass/Vol] 108.2 mg/dL Normal [facility] Comment on above: Performed By: #### C BC #### [facility] [address] [address] [address] Jessica Saravia Cholesterol.total/Cindy sterol in HDL [Mass ratio] 5.2 {ratio} Normal [facility] Comment on above: Performed By: #### C BC #### [facility] [address] [address] [address] Jessica Saravia HDL NORMAL > or = 60 mg/dl - LOW CARDIOVASCULAR RISK <40 mg/dl - HIGH CARDIOVASCULAR RISK Normal [facility] Comment on above: Performed By: #### C BC #### [facility] [address] [place] [address] Dr. Jessica Saravia LDL CALC NORMAL SEE BELOW Normal [facility] Comment on above: Result Comment: <100 mg/dl OPTIMAL 100 - 129 mg/dl NEAR OR ABOVE OPTIMAL 130 - 159 mg/dl BORDERLINE HIGH 160 - 189 mg/dl HIGH >190 mg/dl VERY HIGH Performed By: #### C BC #### [facility] [address] [place] [address] Dr. Jessica Saravia Triglyceride [Mass/Vol] 149 mg/dL Normal <=150 [facility] Comment on above: Performed By: #### C BC #### [facility] [address] [place] [address] Dr. Jessica Saravia VLDL CALC 29.8 mg/dL Normal [facility] Comment on above: Performed By: #### C BC #### [facility] [address] [address] [address] Jessica Saravia LIVER PROFILEon 11-12-2022 Albumin [Mass/Vol] 2.8 g/dL Critically low 3.4-5.0 Th e [facility] Comment on above: Performed By: #### L IVER #### [facility] [address] [place] [address] Dr. Jessica Saravia Albumin/Globulin [Mass ratio] 0.7 {ratio} Normal [facility] Comment on above: Performed By: #### L IVER #### [facility] [address] [address] [address] Jessica Saravia ALP [Catalytic activity/Vol] 159 U/L Critically high 46-116 [facility] Comment on above: Performed By: #### L IVER #### [facility] [address] [address] [address] Jessica Saravia ALT [Catalytic activity/Vol] 37 U/L Normal 14-59 [facility] Comment on above: Performed By: #### L IVER #### [facility] [address] [address] [address] Jessica Saravia AST [Catalytic activity/Vol] 24 U/L Normal 15-37 [facility] Comment on above: Performed By: #### L IVER #### [facility] [address] [place] [address] Dr. Jessica Saravia BILI, CONJUGATED 0.1 mg/dL Normal 0.0-0.2 [facility] Comment on above: Performed By: #### L IVER #### [facility] [address] [place] [address] Dr. Jessica Saravia Bilirubin [Mass/Vol] 0.4 mg/dL Normal 0.2-1.0 [facility] Comment on above: Performed By: #### L IVER #### [facility] [address] [address] [address] Jessica Saravia Globulin (S) [Mass/Vol] 4.2 g/dL Normal [facility] Comment on above: Performed By: #### L IVER #### [facility] [address] [address] [address] Jessica Saravia Protein [Mass/Vol] 7.0 g/dL Normal 6.4-8.2 [facility] Comment on above: Performed By: #### L IVER #### [facility] [address] [address] [address] Jessica Saravia SED RATE [facility] 2022 SED RATE 80 mm/hr Critically high <=30 [facility] Comment on above: Performed By: #### C BC #### [facility] [address] [address] [address] Jessica Saravia Tobacco Screening.on 023 Adult depression screening assessment No [facility] 250 DO Work Phone: Fall risk assessment a) No falls within the last year [facility] 250 DO Work Phone: Tobacco use status [facility] b) No [facility] 250 DO Work Phone: CT CHEST WO [...] 06-16-2022 BASO # 0.1 103/ul Normal 0.0-0.1 [facility] Comment on above: Performed By: #### C BC #### [facility] [address] [address] [address] Jessica Saravia Basophils/100 WBC (Bld) 1.0 % Normal 0.2-2.0 [facility] Comment on above: Performed By: #### C BC #### [facility] [address] [place] [address] Dr. Jessica Saravia EO # 0.4 103/ul Normal 0.0-0.7 [facility] Comment on above: Performed By: #### C BC #### [facility] [address] [place] [address] Dr. Jessica Saravia Eosinophils/100 WBC (Bld) 5.1 % Normal 0.9-7.0 [facility] Comment on above: Performed By: #### C BC #### [facility] [address] [place] [address] Dr. Jessica Saravia Erythrocyte distribution width (RBC) [Ratio] 16.6 % Critically high 11.0-15.0 [facility] Comment on above: Performed By: #### C BC #### [facility] [address] [place] [address] Dr. Jessica Saravia Hematocrit (Bld) [Volume fraction] 34.1 % Critically low 36.0-48.0 [facility] Comment on above: Performed By: #### C BC #### [facility] [address] [place] [address] Dr. Jessica Saravia Hemoglobin (Bld) [Mass/Vol] 10.6 g/dL Critically low 12.0-16.0 [facility] Comment on above: Performed By: #### C BC #### [facility] [address] [place] [address] Dr. Jessica Saravia IG # 0.02 10e3/ul Normal 0.00-0.03 [facility] Comment on above: Performed By: #### C BC #### [facility] [address] [place] [address] Dr. Jessica Saravia IG % 0.3 % Normal 0.0-0.5 [facility] Comment on above: Performed By: #### C BC #### [facility] [address] [place] [address] Dr. Jessica Saravia LYMPH # 1.4 103/ul Normal 1.2-3.8 [facility] Comment on above: Performed By: #### C BC #### [facility] [address] [address] [address] Jessica Saravia Lymphocytes/100 WBC (Bld) 19.6 % Critically low 20.5-60.0 [facility] Comment on above: Performed By: #### C BC #### [facility] [address] [address] [address] Jessica Saravia MANUAL DIFF REQ NO Normal [facility] Comment on above: Performed By: #### C BC #### [facility] [address] [place] [address] Dr. Jessica Saravia MCH (RBC) [Entitic mass] 27.9 pg Normal 26.7-34.0 [facility] Comment on above: Performed By: #### C BC #### [facility] [address] [place] [address] Dr. Jessica Saravia MCHC (RBC) [Mass/Vol] 31.1 g/dL Normal 29.9-35.2 [facility] Comment on above: Performed By: #### C BC #### [facility] [address] [place] [address] Dr. Jessica Saravia MCV (RBC) [Entitic vol] 89.7 fL Normal 81.0-99.0 [facility] Comment on above: Performed By: #### C BC #### [facility] [address] [place] [address] Dr. Jessica Saravia MONO # 1.0 103/ul Critically high 0.3-0.8 [facility] Comment on above: Performed By: #### C BC #### [facility] [address] [place] [address] Dr. Jessica Saravia Monocytes/100 WBC (Bld) 14.2 % Critically high 1.7-12. 0 [facility] Comment on above: Performed By: #### C BC #### [facility] [address] [place] [address] Dr. Jessica Saravia NEUT # 4.3 103/ul Normal 1.4-6.5 [facility] Comment on above: Performed By: #### C BC #### [facility] [address] [address] [address] Jessica Saravia Neutrophils/100 WBC (Bld) 59.8 % Normal 43.0-75.0 [facility] Comment on above: Performed By: #### C BC #### [facility] [address] [address] [address] Jessica Saravia Platelet mean volume (Bld) [Entitic vol] 11.9 fL Normal 9.5-13.5 [facility] Comment on above: Performed By: #### C BC #### [facility] [address] [address] [address] Jessica Saravia PLT 235 103/ul Normal 150-450 [facility] Comment on above: Performed By: #### C BC #### [facility] [address] [place] [address] Dr. Jessica Saravia RBC 3.80 106/ul Critically low 4.20-5.40 [facility] Comment on above: Performed By: #### C BC #### [facility] [address] [place] [address] Dr. Jessica Saravia WBC 7.3 103/ul Normal 4.0-11.0 [facility] Comment on above: Performed By: #### C BC #### [facility] [address] [place] [address] Dr. Jessica Saravia CREATININEon 06-16-2022 Creatinine [Mass/Vol] 1.06 mg/dL Critically high 0.55-1.02 [facility] Comment on above: Performed By: #### L ARGENIS CASTILLO #### [facility] [address] [address] [address] Jessica Saravia EGFR-AF GRENADIAN >60 Normal >=60 [facility] Comment on above: Performed By: #### L ARGENIS CASTILLO #### [facility] [address] [address] [address] Jessica Saravia EGFR-NON AF GRENADIAN 52 mL/min/1.73m2 Critically low >=60 [facility] Comment on above: Performed By: #### L JONATHAN CREA #### [facility] [address] [place] [address] Dr. Jessica Saravia LIVER PROFILEon 06-16-2022 Albumin [Mass/Vol] 2.8 g/dL Critically low 3.4-5.0 Th e [facility] Comment on above: Performed By: #### L JONATHAN CREA #### [facility] [address] [place] [address] Dr. Jessica Saravia Albumin/Globulin [Mass ratio] 0.7 {ratio} Normal [facility] Comment on above: Performed By: #### L JONATHAN CREA #### [facility] [address] [place] [address] Dr. Jessica Saravia ALP [Catalytic activity/Vol] 112 U/L Normal 46-116 [facility] Comment on above: Performed By: #### L JONATHAN CREA #### [facility] [address] [place] [address] Dr. Jessica Saravia ALT [Catalytic activity/Vol] 19 U/L Normal 14-59 [facility] Comment on above: Performed By: #### Jodie CASTILLO CREA #### [facility] [address] [place] [address] Dr. Jessica Saravia AST [Catalytic activity/Vol] 16 U/L Normal 15-37 [facility] Comment on above: Performed By: #### L JONATHAN CREA #### [facility] [address] [place] [address] Dr. Jessica Saravia BILI, CONJUGATED 0.1 mg/dL Normal 0.0-0.2 [facility] Comment on above: Performed By: #### L JONATHAN CREA #### [facility] [address] [place] [address] Dr. Jessica Saravia Bilirubin [Mass/Vol] 0.3 mg/dL Normal 0.2-1.0 [facility] Comment on above: Performed By: #### L JONATHAN CREA #### [facility] [address] [place] [address] Dr. Jessica Saravia Globulin (S) [Mass/Vol] 4.1 g/dL Normal [facility] Comment on above: Performed By: #### L ARGENIS CASTILLO #### [facility] [address] [place] [address] Dr. Jessica Saravia Protein [Mass/Vol] 6.9 g/dL Normal 6.4-8.2 [facility] Comment on above: Performed By: #### L ARGENIS CASTILLO #### [facility] [address] [place] [address] Dr. Jessica Saravia SED RATE WESTERGRENon 2021 SED RATE 82 mm/hr Critically high <=30 [facility] Comment on above: Performed By: #### S EDR #### [facility] [address] [place] [address] Dr. Jessica Saravia US SINGLE QUAD RT [...] by: ISAAC JONES Date: 2022-05-01 09:07 Normal [facility] CBC AUTO DIFFon 03-21-2022 BASO # 0.1 103/ul Normal 0.0-0.1 [facility] Comment on above: Performed By: #### C BC #### [facility] [address] [place] [address] Dr. Jessica Saravia Basophils/100 WBC (Bld) 1.3 % Normal 0.2-2.0 [facility] Comment on above: Performed By: #### C BC #### [facility] [address] [place] [address] Dr. Jessica Saravia EO # 0.4 103/ul Normal 0.0-0.7 [facility] Comment on above: Performed By: #### C BC #### [facility] [address] [place] [address] Dr. Jessica Saravia Eosinophils/100 WBC (Bld) 5.4 % Normal 0.9-7.0 [facility] Comment on above: Performed By: #### C BC #### [facility] [address] [place] [address] Dr. Jessica Saravia Erythrocyte distribution width (RBC) [Ratio] 17.3 % Critically high 11.0-15.0 [facility] Comment on above: Performed By: #### C BC #### [facility] [address] [place] [address] Dr. Jessica Saravia Hematocrit (Bld) [Volume fraction] 36.4 % Normal 36.0-48.0 [facility] Comment on above: Performed By: #### C BC #### [facility] [address] [place] [address] Dr. Jessica Saravia Hemoglobin (Bld) [Mass/Vol] 10.5 g/dL Critically low 12.0-16.0 [facility] Comment on above: Performed By: #### C BC #### [facility] [address] [place] [address] Dr. Jessica Saravia IG # 0.02 10e3/ul Normal 0.00-0.03 [facility] Comment on above: Performed By: #### C BC #### [facility] [address] [place] [address] Dr. Jessica Saravia IG % 0.3 % Normal 0.0-0.5 [facility] Comment on above: Performed By: #### C BC #### [facility] [address] [place] [address] Dr. Jessica Saravia LYMPH # 1.2 103/ul Normal 1.2-3.8 [facility] Comment on above: Performed By: #### C BC #### [facility] [address] [place] [address] Dr. Jessica Saravia Lymphocytes/100 WBC (Bld) 16.3 % Critically low 20.5-60.0 [facility] Comment on above: Performed By: #### C BC #### [facility] [address] [place] [address] Dr. Jessica Saravia MANUAL DIFF REQ NO Normal [facility] Comment on above: Performed By: #### C BC #### [facility] [address] [place] [address] Dr. Jessica Saravia MCH (RBC) [Entitic mass] 25.1 pg Critically low 26.7-34.0 [facility] Comment on above: Performed By: #### C BC #### [facility] [address] [place] [address] Dr. Jessica Saravia MCHC (RBC) [Mass/Vol] 28.8 g/dL Critically low 29.9-35.2 [facility] Comment on above: Result Comment: hypo chromic Performed By: #### C BC #### [facility] [address] [place] [address] Dr. Jessica Saravia MCV (RBC) [Entitic vol] 87.1 fL Normal 81.0-99.0 [facility] Comment on above: Performed By: #### C BC #### [facility] [address] [place] [address] Dr. Jessica Saravia MONO # 0.9 103/ul Critically high 0.3-0.8 [facility] Comment on above: Performed By: #### C BC #### [facility] [address] [place] [address] Dr. Jessica Saravia Monocytes/100 WBC (Bld) 12.0 % Normal 1.7-12.0 [facility] Comment on above: Performed By: #### C BC #### [facility] [address] [place] [address] Dr. Jessica Saravia NEUT # 4.7 103/ul Normal 1.4-6.5 [facility] Comment on above: Performed By: #### C BC #### [facility] [address] [place] [address] Dr. Jessica Saravia Neutrophils/100 WBC (Bld) 64.7 % Normal 43.0-75.0 [facility] Comment on above: Performed By: #### C BC #### [facility] [address] [place] [address] Dr. Jessica Saravia Platelet mean volume (Bld) [Entitic vol] 12.3 fL Normal 9.5-13.5 [facility] Comment on above: Performed By: #### C BC #### [facility] [address] [place] [address] Dr. Jessica Saravia PLT 284 103/ul Normal 150-450 [facility] Comment on above: Performed By: #### C BC #### [facility] [address] [place] [address] Dr. Jessica Saravia RBC 4.18 106/ul Critically low 4.20-5.40 [facility] Comment on above: Performed By: #### C BC #### [facility] [address] [place] [address] Dr. Jessica Saravia WBC 7.2 103/ul Normal 4.0-11.0 [facility] Comment on above: Performed By: #### C BC #### [facility] [address] [place] [address] Dr. Jessica Saravia CREATININEon 03-21-2022 Creatinine [Mass/Vol] 1.05 mg/dL Critically high 0.55-1.02 [facility] Comment on above: Performed By: #### L IVER #### [facility] [address] [place] [address] Dr. Jessica Saravia EGFR-AF GRENADIAN >60 Normal >=60 [facility] Comment on above: Performed By: #### L IVER #### [facility] [address] [place] [address] Dr. Jessica Saravia EGFR-NON AF GRENADIAN 53 mL/min/1.73m2 Critically low >=60 [facility] Comment on above: Performed By: #### L IVER #### [facility] [address] [place] [address] Dr. Jessica Saravia LIVER PROFILEon 03-21-2022 Albumin [Mass/Vol] 2.9 g/dL Critically low 3.4-5.0 [facility] Comment on above: Performed By: #### L IVER #### [facility] [address] [place] [address] Dr. Jessica Saravia Albumin/Globulin [Mass ratio] 0.7 {ratio} Normal [facility] Comment on above: Performed By: #### L IVER #### [facility] [address] [place] [address] Dr. Jessica Saravia ALP [Catalytic activity/Vol] 86 U/L Normal 46-116 [facility] Comment on above: Performed By: #### L IVER #### [facility] [address] [place] [address] Dr. Jessica Saravia ALT [Catalytic activity/Vol] 18 U/L Normal 14-59 [facility] Comment on above: Performed By: #### L IVER #### [facility] [address] [place] [address] Dr. Jessica Saravia AST [Catalytic activity/Vol] 13 U/L Critically low 15-37 [facility] Comment on above: Performed By: #### L IVER #### [facility] [address] [place] [address] Dr. Jessica Saravia BILI, CONJUGATED 0.1 mg/dL Normal 0.0-0.2 [facility] Comment on above: Performed By: #### L IVER #### [facility] [address] [place] [address] Dr. Jessica Saravia Bilirubin [Mass/Vol] 0.4 mg/dL Normal 0.2-1.0 [facility] Comment on above: Performed By: #### L IVER #### [facility] [address] [place] [address] Dr. Jessica Saravia Globulin (S) [Mass/Vol] 4.1 g/dL Normal [facility] Comment on above: Performed By: #### L IVER #### [facility] [address] [place] [address] Dr. Jessica Saravia Protein [Mass/Vol] 7.0 g/dL Normal 6.4-8.2 [facility] Comment on above: Performed By: #### L IVER #### [facility] [address] [place], [place] [address] Dr. [facility] 92 mm/hr Critically high <=30 [facility] Comment on above: Performed By: #### L IVER #### [facility] [address] [place], [place] [address] Dr. Jessica Saravia Activated partial thrombopla stin time (aPTT) in platelet poor plasma by coagulation aOrdered By: Marcin Patel on 03-01-2022 aPTT Coag (PPP) [Time] 31.7 s 25.1-36.5 [facility] - CoagulationOrde red By: Marcin Patel on 03-01-2022 PT Coag (PPP) [Time] 13.1 s 9.0-12.9 [facility] Platelet poor plasma interna tional normalized ratio (INR) by coagulation assay (relatOrdered By: Marcin Patel on 03-01-2022 INR Coag (PPP) [Relative time] 1.2 {INR} [facility] Comment on above: INR Therapeutic Rang e [...] 03-01-2022 Platelets (Bld) [#/Vol] 188 10*3/uL 150-450 [facility] Glucose Glucometer (BldC) [M ass/Vol]Ordered By: Floresita Gonzalez on 02-07-2022 Glucose [Mass/Vol] 153 mg/dL [facility] Comment on above: Random Glucose Refer ence Range is dependent on time and content of last meal. Glucose of more than 200 mg/dL in a nonstressed, ambulatory subject supports the diagnosis of Diabetes Mellitus. No Panel InformationOrdered By: Floresita Gonzalez on 02-07-2022 Bedside Glucose Comment Glu2: cleaned meter [facility] CBC AUTO DIFFon 01-26-2022 BASO # 0.1 103/ul Normal 0.0-0.1 [facility] Comment on above: Performed By: #### C BC #### [facility] [address] [address] [address] Jessica Saravia Basophils/100 WBC (Bld) 1.3 % Normal 0.2-2.0 [facility] Comment on above: Performed By: #### C BC #### [facility] [address] [address] [address] Jessica Saravia EO # 0.4 103/ul Normal 0.0-0.7 [facility] Comment on above: Performed By: #### C BC #### [facility] [address] [address] [address] Jessica Saravia Eosinophils/100 WBC (Bld) 4.6 % Normal 0.9-7.0 [facility] Comment on above: Performed By: #### C BC #### [facility] [address] [address] [address] Jessica Saravia Erythrocyte distribution width (RBC) [Ratio] 18.3 % Critically high 11.0-15.0 [facility] Comment on above: Performed By: #### C BC #### [facility] [address] [address] [address] Jessica Saravia Hematocrit (Bld) [Volume fraction] 28.7 % Critically low 36.0-48.0 [facility] Comment on above: Performed By: #### C BC #### [facility] [id number] Jessica Saravia Hemoglobin (Bld) [Mass/Vol] 8.3 g/dL Critically low 12.0-16.0 [facility] Comment on above: Performed By: #### C BC #### [facility] [id number] Jessica Saravia IG # 0.12 10e3/ul Critically high 0.00-0.03 [facility] Comment on above: Performed By: #### C BC #### [facility] [address] [address] [address] Jessica Saravia IG % 1.6 % Critically high 0.0-0.5 [facility] Comment on above: Performed By: #### C BC #### [facility] [address] [address] [address] Jessica Saravia LYMPH # 1.4 103/ul Normal 1.2-3.8 [facility] Comment on above: Performed By: #### C BC #### [facility] [address] [place] [address] Dr. Jessica Saravia Lymphocytes/100 WBC (Bld) 18.3 % Critically low 20.5-60.0 [facility] Comment on above: Performed By: #### C BC #### [facility] [address] [place] [address] Dr. Jessica Saravia MANUAL DIFF REQ NO Normal [facility] Comment on above: Performed By: #### C BC #### [facility] [address] [place] [address] Dr. Jessica Saravia MCH (RBC) [Entitic mass] 26.4 pg Critically low 26.7-34.0 [facility] Comment on above: Performed By: #### C BC #### [facility] [address] [place] [address] Dr. Jessica Saravia MCHC (RBC) [Mass/Vol] 28.9 g/dL Critically low 29.9-35.2 [facility] Comment on above: Performed By: #### C BC #### [facility] [address] [place] [address] Dr. Jessica Saravia MCV (RBC) [Entitic vol] 91.4 fL Normal 81.0-99.0 [facility] Comment on above: Performed By: #### C BC #### [facility] [address] [place] [address] Dr. Jessica Saravia MONO # 1.0 103/ul Critically high 0.3-0.8 [facility] Comment on above: Performed By: #### C BC #### [facility] [address] [address] [address] Jessica Saravia Monocytes/100 WBC (Bld) 12.6 % Critically high 1.7-12. 0 [facility] Comment on above: Performed By: #### C BC #### [facility] [address] [address] [address] Jessica Saravia NEUT # 4.6 103/ul Normal 1.4-6.5 [facility] Comment on above: Performed By: #### C BC #### [facility] [address] [address] [address] Jessica Saravia Neutrophils/100 WBC (Bld) 61.6 % Normal 43.0-75.0 [facility] Comment on above: Performed By: #### C BC #### [facility] [address] [place] [address] Dr. Jessica Saravia Platelet mean volume (Bld) [Entitic vol] 12.4 fL Normal 9.5-13.5 [facility] Comment on above: Performed By: #### C BC #### [facility] [address] [place] [address] Dr. Jessica Saravia PLT 247 103/ul Normal 150-450 [facility] Comment on above: Performed By: #### C BC #### [facility] [address] [place] [address] Dr. Jessica Saravia RBC 3.14 106/ul Critically low 4.20-5.40 [facility] Comment on above: Performed By: #### C BC #### [facility] [address] [place] [address] Dr. Jessica Saravia WBC 7.5 103/ul Normal 4.0-11.0 [facility] Comment on above: Performed By: #### C BC #### [facility] [address] [place] [address] Dr. Jessica Saravia CREATININEon 01-26-2022 Creatinine [Mass/Vol] 0.88 mg/dL Normal 0.52-1.04 [facility] Comment on above: Performed By: #### C BC #### [facility] [address] [place] [address] Dr. Jessica Saravia EGFR-AF GRENADIAN >60 Normal >=60 [facility] Comment on above: Performed By: #### C BC #### [facility] [address] [place] [address] Dr. Jessica Saravia EGFR-NON AF GRENADIAN >60 Normal >=60 [facility] Comment on above: Performed By: #### C BC #### [facility] [address] [place] [address] Dr. Jessica Saravia LIVER PROFILEon 01-26-2022 Albumin [Mass/Vol] 2.7 g/dL Critically low 3.4-5.0 Th e [facility] Comment on above: Performed By: #### C BC #### [facility] [address] [place] [address] Dr. Jessica Saravia Albumin/Globulin [Mass ratio] 0.7 {ratio} Normal [facility] Comment on above: Performed By: #### C BC #### [facility] [address] [place] [address] Dr. Jessica Saravia ALP [Catalytic activity/Vol] 82 U/L Normal 46-116 [facility] Comment on above: Performed By: #### C BC #### [facility] [address] [place] [address] Dr. Jessica Saravia ALT [Catalytic activity/Vol] 16 U/L Normal 14-59 [facility] Comment on above: Performed By: #### C BC #### [facility] [address] [place] [address] Dr. Jessica Saravia AST [Catalytic activity/Vol] 19 U/L Normal 15-37 [facility] Comment on above: Performed By: #### C BC #### [facility] [address] [place] [address] Dr. Jessica Saravia BILI, CONJUGATED 0.1 mg/dL Normal 0.0-0.3 [facility] Comment on above: Performed By: #### C BC #### [facility] [address] [place] [address] Dr. Jessica Saravia Bilirubin [Mass/Vol] 0.4 mg/dL Normal 0.2-1.3 [facility] Comment on above: Performed By: #### C BC #### [facility] [address] [place] [address] Dr. Jessica Saravia Globulin (S) [Mass/Vol] 4.0 g/dL Normal [facility] Comment on above: Performed By: #### C BC #### [facility] [address] [address] [address] Jessica Saravia Protein [Mass/Vol] 6.7 g/dL Normal 6.1-8.2 [facility] Comment on above: Performed By: #### C BC #### [facility] [address] [place] [address] Dr. Jessica Saravia SED RATE WESTERGRENon 2021 SED RATE 97 mm/hr Critically high <=30 [facility] Comment on above: Performed By: #### C BC #### [facility] [address] [place] [address] Dr. Jessica Saravia URIC ACID SERUMon 01-26-2022 Urate [Mass/Vol] 4.4 mg/dL Normal 2.5-6.2 [facility] Comment on above: Performed By: #### C BC #### [facility] [address] [place] [address] Dr. Jessica Saravia Amphetamine Screen Ql (U)Ord ered By: Ferdinand Garcia on 12-28-2021 Amphetamines Ql (U) Negative Negative [facility] Barbiturates [Presence] in U rineOrdered By: Ferdinand Garcia on 12-28-2021 Barbiturates Ql (U) Negative Negative [facility] Benzodiazepines [Presence] i n UrineOrdered By: Ferdinand Garcia on 12-28-2021 Benzodiazepines Ql (U) Negative Negative [facility] Cannabinoids [Presence] in U rine by Screen methodOrdered By: Ferdinand Garcia on 12-28-2021 Cannabinoids Screen Ql (U) Positive Negative [facility] Comment on above: These are unconfirme d results and should not be used for legal purposes. Drug Cut-Off Concentration: AMPH 1000 ng/mL DARIANA 200 ng/mL AURY 200 ng/mL COCM 300 ng/mL OP 300 ng/mL PCP 25 ng/mL THC 20 ng/mL Glucose Glucometer (BldC) [M ass/Vol]Ordered By: Salty Gonzalez on 12-28-2021 Glucose [Mass/Vol] 154 mg/dL [facility] Comment on above: Random Glucose Refer ence Range is dependent on time and content of last meal. Glucose of more than 200 mg/dL in a nonstressed, ambulatory subject supports the diagnosis of Diabetes Mellitus. Laboratory - Drug toxicology Ordered By: Ferdinand Garcia on 12-28-2021 Opiates Ql (U) Negative Negative [facility] Phencyclidine Screen Ql (U)O rdered By: Ferdinand Garcia on 12-28-2021 Phencyclidine Ql (U) Negative Negative [facility] Urine cocaine detectionOrder ed By: Ferdinand Garcia on 12-28-2021 Cocaine Ql (U) Negative Negative [facility] CBC AUTO DIFFon 12-27-2021 BASO # 0.1 103/ul Normal 0.0-0.1 [facility] Comment on above: Performed By: #### C BC #### [facility] [address] [place] [address] Dr. Jessica Saravia Basophils/100 WBC (Bld) 1.0 % Normal 0.2-2.0 [facility] Comment on above: Performed By: #### C BC #### [facility] [address] [place] [address] Dr. Jessica Saravia EO # 0.3 103/ul Normal 0.0-0.7 [facility] Comment on above: Performed By: #### C BC #### [facility] [address] [place] [address] Dr. Jessica Saravia Eosinophils/100 WBC (Bld) 3.2 % Normal 0.9-7.0 [facility] Comment on above: Performed By: #### C BC #### [facility] [address] [place] [address] Dr. Jessica Saravia Erythrocyte distribution width (RBC) [Ratio] 16.8 % Critically high 11.0-15.0 [facility] Comment on above: Performed By: #### C BC #### [facility] [address] [place] [address] Dr. Jessica Saravia Hematocrit (Bld) [Volume fraction] 31.4 % Critically low 36.0-48.0 [facility] Comment on above: Performed By: #### C BC #### [facility] [address] [place] [address] Dr. Jessica Saravia Hemoglobin (Bld) [Mass/Vol] 9.5 g/dL Critically low 12.0-16.0 [facility] Comment on above: Performed By: #### C BC #### [facility] [address] [place] [address] Dr. Jessica Saravia IG # 0.02 10e3/ul Normal 0.00-0.03 [facility] Comment on above: Performed By: #### C BC #### [facility] [address] [place] [address] Dr. Jessica Saravia IG % 0.2 % Normal 0.0-0.5 [facility] Comment on above: Performed By: #### C BC #### [facility] [address] [place] [address] Dr. Jessica Saravia LYMPH # 2.2 103/ul Normal 1.2-3.8 [facility] Comment on above: Performed By: #### C BC #### [facility] [address] [place] [address] Dr. Jessica Saravia Lymphocytes/100 WBC (Bld) 26.5 % Normal 20.5-60.0 [facility] Comment on above: Performed By: #### C BC #### [facility] [address] [place] [address] Dr. Jessica Saravia MANUAL DIFF REQ NO Normal [facility] Comment on above: Performed By: #### C BC #### [facility] [address] [place] [address] Dr. Jessica Saravia MCH (RBC) [Entitic mass] 26.0 pg Critically low 26.7-34.0 [facility] Comment on above: Performed By: #### C BC #### [facility] [address] [address] [address] Jessica Saravia MCHC (RBC) [Mass/Vol] 30.3 g/dL Normal 29.9-35.2 [facility] Comment on above: Performed By: #### C BC #### [facility] [address] [address] [address] Jessica Saravia MCV (RBC) [Entitic vol] 86.0 fL Normal 81.0-99.0 [facility] Comment on above: Performed By: #### C BC #### [facility] [address] [address] [address] Jessica Saravia MONO # 0.9 103/ul Critically high 0.3-0.8 [facility] Comment on above: Performed By: #### C BC #### [facility] [address] [address] [address] Jessica Saravia Monocytes/100 WBC (Bld) 10.7 % Normal 1.7-12.0 [facility] Comment on above: Performed By: #### C BC #### [facility] [address] [place] [address] Dr. Jessica Saravia NEUT # 4.8 103/ul Normal 1.4-6.5 [facility] Comment on above: Performed By: #### C BC #### [facility] [address] [address] [address] Jessica Saravia Neutrophils/100 WBC (Bld) 58.4 % Normal 43.0-75.0 [facility] Comment on above: Performed By: #### C BC #### [facility] [address] [address] [address] Jessica Saravia Platelet mean volume (Bld) [Entitic vol] 11.5 fL Normal 9.5-13.5 [facility] Comment on above: Performed By: #### C BC #### [facility] [address] [place] [address] Dr. Jessica Saravia PLT 263 103/ul Normal 150-450 [facility] Comment on above: Performed By: #### C BC #### [facility] [address] [address] [address] Jessica Saravia RBC 3.65 106/ul Critically low 4.20-5.40 [facility] Comment on above: Performed By: #### C BC #### [facility] [address] [address] [address] Jessica Saravia WBC 8.2 103/ul Normal 4.0-11.0 [facility] Comment on above: Performed By: #### C BC #### [facility] [address] [address] [address] Jessica Saravia LIPID PROFILEon 12-27-2021 CHOL-HDL RATIO NORM SEE BELOW Normal [facility] Comment on above: Result Comment: 3.3 - 4.4 LOW RISK 4.4 - 7.1 AVERAGE RISK 7.1 - 11.0 MODERATE RISK >11.0 HIGH RISK Performed By: #### C BC #### [facility] [address] [address] [address] Jessica Saravia Cholesterol [Mass/Vol] 130 mg/dL Normal <=200 [facility] Comment on above: Performed By: #### C BC #### [facility] [address] [address] [address] Jessica Saravia Cholesterol in HDL [Mass/Vol] 27 mg/dL Normal [facility] Comment on above: Performed By: #### C BC #### [facility] [address] [address] [address] Jessica Saravia Cholesterol in LDL [Mass/Vol] 68.6 mg/dL Normal [facility] Comment on above: Performed By: #### C BC #### [facility] [address] [address] [address] Jessica Saravia Cholesterol.total/Cindy sterol in HDL [Mass ratio] 4.8 {ratio} Normal [facility] Comment on above: Performed By: #### C BC #### [facility] [address] [place] [address] Dr. Jessica Saravia HDL NORMAL > or = 60 mg/dl - LOW CARDIOVASCULAR RISK <40 mg/dl - HIGH CARDIOVASCULAR RISK Normal [facility] Comment on above: Performed By: #### C BC #### [facility] [address] [address] [address] Jessica Saravia LDL CALC NORMAL SEE BELOW Normal [facility] Comment on above: Result Comment: <100 mg/dl OPTIMAL 100 - 129 mg/dl NEAR OR ABOVE OPTIMAL 130 - 159 mg/dl BORDERLINE HIGH 160 - 189 mg/dl HIGH >190 mg/dl VERY HIGH Performed By: #### C BC #### [facility] [address] [address] [address] Jessica Saravia Triglyceride [Mass/Vol] 172 mg/dL Critically high <=150 [facility] Comment on above: Performed By: #### C BC #### [facility] [address] [place] [address] Dr. Jessica Saravia VLDL CALC 34.4 mg/dL Normal [facility] Comment on above: Performed By: #### C BC #### [facility] [address] [place] [address] Dr. Jessica Saravia LIVER PROFILEon 12-27-2021 Albumin [Mass/Vol] 2.5 g/dL Critically low 3.5-5.0 [facility] Comment on above: Performed By: #### L IVER #### [facility] [address] [place] [address] Dr. Jessica Saravia Albumin/Globulin [Mass ratio] 0.6 {ratio} Normal [facility] Comment on above: Performed By: #### L IVER #### [facility] [address] [place] [address] Dr. Jessica Saravia ALP [Catalytic activity/Vol] 80 U/L Normal 38-126 [facility] Comment on above: Performed By: #### L IVER #### [facility] [address] [place] [address] Dr. Jessica Saravia ALT [Catalytic activity/Vol] 16 U/L Normal 9-52 [facility] Comment on above: Performed By: #### L IVER #### [facility] [address] [place] [address] Dr. Jessica Saravia AST [Catalytic activity/Vol] 9 U/L Critically low 14-36 [facility] Comment on above: Performed By: #### L IVER #### [facility] [address] [address] [address] Jessica Saravia BILI, CONJUGATED 0.1 mg/dL Normal 0.0-0.3 [facility] Comment on above: Performed By: #### L IVER #### [facility] [address] [address] [address] Jessica Saravia Bilirubin [Mass/Vol] 0.3 mg/dL Normal 0.2-1.3 [facility] Comment on above: Performed By: #### L IVER #### [facility] [address] [place] [address] Dr. Jessica Saravia Globulin (S) [Mass/Vol] 4.1 g/dL Normal [facility] Comment on above: Performed By: #### L IVER #### [facility] [address] [place] [address] Dr. Jessica Saravia Protein [Mass/Vol] 6.6 g/dL Normal 6.1-8.2 [facility] Comment on above: Performed By: #### L IVER #### [facility] [address] [place] [address] Dr. Jessica Saravia PROF CHEM 8 (BAS METB)on Anion gap [Moles/Vol] 11.6 mmol/L Normal [facility] Comment on above: Performed By: #### C BC #### [facility] [address] [place] [address] Dr. Jessica Saravia Calcium [Mass/Vol] 8.2 mg/dL Critically low 8.4-10.2 [facility] Comment on above: Performed By: #### C BC #### [facility] [address] [place] [address] Dr. Jessica Saravai Chloride [Moles/Vol] 103 mmol/L Normal 98-107 [facility] Comment on above: Performed By: #### C BC #### [facility] [address] [address] [address] Jessica Saravia CO2 [Moles/Vol] 30.0 mmol/L Normal 22.0-30.0 [facility] Comment on above: Performed By: #### C BC #### [facility] [address] [address] [address] Jessica Saravia Creatinine [Mass/Vol] 1.05 mg/dL Critically high 0.52-1.04 [facility] Comment on above: Performed By: #### C BC #### [facility] [address] [address] [address] Jessica Saravia EGFR-AF GRENADIAN >60 Normal >=60 [facility] Comment on above: Performed By: #### C BC #### [facility] [address] [address] [address] Jessica Saravia EGFR-NON AF GRENADIAN 53 mL/min/1.73m2 Critically low >=60 [facility] Comment on above: Performed By: #### C BC #### [facility] [address] [address] [address] Jessica Saravia Glucose [Mass/Vol] 214 mg/dL Critically high 74-106 [facility] Comment on above: Performed By: #### C BC #### [facility] [address] [address] [address] Jessica Saravia Potassium [Moles/Vol] 3.6 mmol/L Normal 3.4-5.0 [facility] Comment on above: Performed By: #### C BC #### [facility] [address] [address] [address] Jessica Saravia Sodium [Moles/Vol] 141 mmol/L Normal 137-145 [facility] Comment on above: Performed By: #### C BC #### [facility] [address] [address] [address] Jessica Saravia Urea nitrogen [Mass/Vol] 9.0 mg/dL Normal 7.0-17.0 [facility] Comment on above: Performed By: #### C BC #### [facility] [address] [address] [address] Jessica Saravia Urea nitrogen/Creatinine [Mass ratio] 8.6 mg/mg Normal [facility] Comment on above: Performed By: #### C BC #### [facility] [address] [address] [address] [facility] mm/hr Critically high <=30 [facility] Comment on above: Performed By: #### S EDR #### [facility] [address] [address] [address] Jessica Saravia COVID-19 Positive/NegativeOr dered By: Salty Gonzalez on 12-24-2021 SARS-CoV-2 (COVID-19) N gene AMA+probe Ql (Resp) Negative Negative [facility] Comment on above: Testing for SARS-CoV -2 by RT-PCRThis test was developed and its performance characteristics determined by [employer]) and validated at the [facility]. This test has not been FDA cleared [...] 12-14-2021 Basophils (Bld) [#/Vol] 0.1 10*3/uL 0.0-0.2 [facility] Basophils/100 WBC Auto (Bld) Ordered By: Salty Gonzalez on 12-14-2021 Basophils/100 WBC (Bld) 1.5 % [facility] Blood hemoglobin measurement (mass/volume)Ordered By: Salty Gonzalez on 12-14-2021 Hemoglobin (Bld) [Mass/Vol] 10.7 g/dL 11.8-15.4 [facility] Blood leukocytes automated c ount (number/volume)Ordered By: Salty Gonzalez on 12-14-2021 WBC (Bld) [#/Vol] 7.2 10*3/uL 4.5-11.0 [facility] Creatinine and Glomerular fi ltration rate.predicted panel (S/P/Bld)Ordered By: Salty Gonzalez on 12-14-2021 Creatinine [Mass/Vol] 0.98 mg/dL 0.44-1.03 [facility] Eosinophils Auto (Bld) [#/Vo l]Ordered By: Salty Gonzalez on 12-14-2021 Eosinophils (Bld) [#/Vol] 0.4 10*3/uL 0.0-0.45 [facility] Eosinophils/100 WBC Auto (Bl d)Ordered By: Salty Gonzalez on 12-14-2021 Eosinophils/100 WBC (Bld) 5.5 % [facility] Erythrocyte distribution wid th Auto (RBC) [Ratio]Ordered By: Salty Gonzalez on 12-14-2021 Erythrocyte distribution width (RBC) [Ratio] 17.4 % 11.9-15.3 [facility] Estimated glomerular filtrat ion rate (GFR) non- AmericanOrdered By: Salty Gonzalez on 12-14-2021 GFR/1.73 sq M.predicted among non-blacks MDRD (S/P/Bld) [Vol rate/Area] 57 mL/Min [facility] Hematocrit Auto (Bld) [Volum e fraction]Ordered By: Salty Gonzalez on 12-14-2021 Hematocrit (Bld) [Volume fraction] 33.6 % 34.0-46.4 [facility] - Hematology and Cell countsOrdered By: Salty Gonzalez on 12-14-2021 Nucleated RBC/100 WBC (Bld) [Ratio] 0.1 % 0-0.5 [facility] Lymphocytes Auto (Bld) [#/Vo l]Ordered By: Salty Gonzalez on 12-14-2021 Lymphocytes (Bld) [#/Vol] 1.4 10*3/uL 1.00-4.8 [facility] Lymphocytes/100 WBC Auto (Bl d)Ordered By: Salty Gonzalez on 12-14-2021 Lymphocytes/100 WBC (Bld) 19.0 % [facility] MCH Auto (RBC) [Entitic mass ]Ordered By: Salty Gonzalez on 12-14-2021 MCH (RBC) [Entitic mass] 26.7 pg 24.7-34.3 [facility] MCHC Auto (RBC) [Mass/Vol]Or dered By: Salty Gonzalez on 12-14-2021 MCHC (RBC) [Mass/Vol] 31.9 g/dL 32.0-35.0 [facility] MCV Auto (RBC) [Entitic vol] Ordered By: Salty Gonzalez on 12-14-2021 MCV (RBC) [Entitic vol] 83.5 fL 80-100 [facility] Monocytes Auto (Bld) [#/Vol] Ordered By: Salty Gonzalez on 12-14-2021 Monocytes (Bld) [#/Vol] 0.8 10*3/uL 0.0-0.8 [facility] Monocytes/100 WBC Auto (Bld) Ordered By: Salty Gonzalez on 12-14-2021 Monocytes/100 WBC (Bld) 11.0 % [facility] Neutrophils Auto (Bld) [#/Vo l]Ordered By: Salty Gonzalez on 12-14-2021 Neutrophils (Bld) [#/Vol] 4.5 10*3/uL 1.8-7.7 [facility] Neutrophils/100 WBC Auto (Bl d)Ordered By: Salty Gonzalez on 12-14-2021 Neutrophils/100 WBC (Bld) 63.0 % [facility] No Panel InformationOrdered By: Salty Gonzalez on 12-14-2021 Estimated GFR () > 60 mL/Min [facility] Comment on above: GFR estimated refere nce range: According to KDOQI guidelines, <60 ml/min/1.73m2 is sufficient to diagnose a patient with chronic kidney disease. Pharmacy Creatinine Clearance (Chem N/A [facility] Platelet mean volume Auto (B ld) [Entitic vol]Ordered By: Salty Gonzalez on 12-14-2021 Platelet mean volume (Bld) [Entitic vol] 10.1 fL 6.3-10.7 [facility] Platelets Auto (Bld) [#/Vol] Ordered By: Salty Gonzalez on 12-14-2021 Platelets (Bld) [#/Vol] 245 10*3/uL 150-450 [facility] RBC Auto (Bld) [#/Vol]Ordere d By: Salty Gonzalez on 12-14-2021 RBC (Bld) [#/Vol] 4.02 10*6/uL 3.60-5.00 [facility] Serum or plasma calcium klel urement (mass/volume)Ordered By: Salty Gonzalez on 12-14-2021 Calcium [Mass/Vol] 10.0 mg/dL 8.2-10.2 [facility] Serum or plasma chloride jennifer surement (moles/volume)Ordered By: Salty Gonzalez on 12-14-2021 Chloride [Moles/Vol] 102 mmol/L 95-114 [facility] Serum or plasma glucose kell urement (mass/volume)Ordered By: Salty Gonzalez on 12-14-2021 Glucose [Mass/Vol] 226 mg/dL 70-100 [facility] Comment on above: ADA recommended refe rence rangeRandom Glucose Reference Range is dependent on time and content of last meal. Glucose of more than 200 mg/dL in a nonstressed, ambulatory subject supports the diagnosis of Diabetes Mellitus. Serum or plasma potassium me asurement (moles/volume)Ordered By: Salty Gonzalez on 12-14-2021 Potassium [Moles/Vol] 3.9 mmol/L 3.5-5.1 [facility] Serum or plasma sodium measu rement (moles/volume)Ordered By: Salty Gonzalez on 12-14-2021 Sodium [Moles/Vol] 136 mmol/L 136-146 [facility] Serum or plasma total carbon dioxide measurement (moles/volume)Ordered By: Salty Gonzalez on 12-14-2021 CO2 [Moles/Vol] 24.5 mmol/L 22.0-30.0 [facility] Serum or plasma urea nitroge n measurement (mass/volume)Ordered By: Salty Gonzalez on 12-14-2021 Urea nitrogen [Mass/Vol] 9 mg/dL 07-08 [facility] CBC AUTO DIFFon 12-08-2021 BASO # 0.1 103/ul Normal 0.0-0.1 [facility] Comment on above: Performed By: #### L IVER #### [facility] [address] [place] [address] Dr. Jessica Saravia Basophils/100 WBC (Bld) 1.1 % Normal 0.2-2.0 [facility] Comment on above: Performed By: #### L IVER #### [facility] [address] [place] [address] Dr. Jessica Saravia EO # 0.4 103/ul Normal 0.0-0.7 [facility] Comment on above: Performed By: #### L IVER #### [facility] [address] [address] [address] Jessica Saravia Eosinophils/100 WBC (Bld) 4.1 % Normal 0.9-7.0 [facility] Comment on above: Performed By: #### L IVER #### [facility] [address] [place] [address] Dr. Jessica Saravia Erythrocyte distribution width (RBC) [Ratio] 16.8 % Critically high 11.0-15.0 [facility] Comment on above: Performed By: #### L IVER #### [facility] [address] [place], [place] [id number] Dr. Jessica Saravia Hematocrit (Bld) [Volume fraction] 37.1 % Normal 36.0-48.0 [facility] Comment on above: Performed By: #### L IVER #### [facility] [address] [place] [address] Dr. Jessica Saravia Hemoglobin (Bld) [Mass/Vol] 11.0 g/dL Critically low 12.0-16.0 [facility] Comment on above: Performed By: #### L IVER #### [facility] [address] [place] [address] Dr. Jessica Saravia IG # 0.02 10e3/ul Normal 0.00-0.03 [facility] Comment on above: Performed By: #### L IVER #### [facility] [address] [place] [address] Dr. Jessica Saravia IG % 0.2 % Normal 0.0-0.5 [facility] Comment on above: Performed By: #### L IVER #### [facility] [address] [place] [address] Dr. Jessica Saravia LYMPH # 1.5 103/ul Normal 1.2-3.8 [facility] Comment on above: Performed By: #### L IVER #### [facility] [address] [place] [address] Dr. Jessica Saravia Lymphocytes/100 WBC (Bld) 16.2 % Critically low 20.5-60.0 [facility] Comment on above: Performed By: #### L IVER #### [facility] [address] [place] [address] Dr. Jessica Saravia MANUAL DIFF REQ NO Normal [facility] Comment on above: Performed By: #### L IVER #### [facility] [address] [place] [address] Dr. Jessica Saravia MCH (RBC) [Entitic mass] 26.4 pg Critically low 26.7-34.0 [facility] Comment on above: Performed By: #### L IVER #### [facility] [address] [place] [address] Dr. Jessica Saravia MCHC (RBC) [Mass/Vol] 29.6 g/dL Critically low 29.9-35.2 [facility] Comment on above: Performed By: #### L IVER #### [facility] [address] [place] [address] Dr. Jessica Saravia MCV (RBC) [Entitic vol] 89.0 fL Normal 81.0-99.0 [facility] Comment on above: Performed By: #### L IVER #### [facility] [address] [place] [address] Dr. Jessica Saravia MONO # 0.8 103/ul Normal 0.3-0.8 [facility] Comment on above: Performed By: #### L IVER #### [facility] [address] [place] [address] Dr. Jessica Saravia Monocytes/100 WBC (Bld) 8.6 % Normal 1.7-12.0 [facility] Comment on above: Performed By: #### L IVER #### [facility] [address] [place] [address] Dr. Jessica Saravia NEUT # 6.3 103/ul Normal 1.4-6.5 [facility] Comment on above: Performed By: #### L IVER #### [facility] [address] [place] [address] Dr. Jessica Saravia Neutrophils/100 WBC (Bld) 69.8 % Normal 43.0-75.0 [facility] Comment on above: Performed By: #### L IVER #### [facility] [address] [place] [address] Dr. Jessica Saravia Platelet mean volume (Bld) [Entitic vol] 11.9 fL Normal 9.5-13.5 [facility] Comment on above: Performed By: #### L IVER #### [facility] [address] [place] [address] Dr. Jessica Saravia PLT 253 103/ul Normal 150-450 [facility] Comment on above: Performed By: #### L IVER #### [facility] [address] [place], [place] [address] Dr. Jessica Saravia RBC 4.17 106/ul Critically low 4.20-5.40 [facility] Comment on above: Performed By: #### L IVER #### [facility] [address] [place] [address] Dr. Jessica Saravia WBC 9.0 103/ul Normal 4.0-11.0 [facility] Comment on above: Performed By: #### L IVER #### [facility] [address] [place] [address] Dr. Jessica Saravia CREATININEon 12-08-2021 Creatinine [Mass/Vol] 1.23 mg/dL Critically high 0.52-1.04 [facility] Comment on above: Performed By: #### C SARAH, LIVER #### [facility] [address] [place] [address] Dr. Jessica Saravia EGFR-AF GRENADIAN 53 mL/min/1.73m2 Critically low >=60 [facility] Comment on above: Performed By: #### C SARAH, LIVER #### [facility] [address] [place] [address] Dr. Jessica Saravia EGFR-NON AF GRENADIAN 44 mL/min/1.73m2 Critically low >=60 [facility] Comment on above: Performed By: #### C SARAH, LIVER #### [facility] [address] [place] [address] Dr. Jessica Saravia LIVER PROFILEon 12-08-2021 Albumin [Mass/Vol] 2.8 g/dL Critically low 3.5-5.0 [facility] Comment on above: Performed By: #### C SARAH, LIVER #### [facility] [address] [place] [address] Dr. Jessica Saravia Albumin/Globulin [Mass ratio] 0.7 {ratio} Normal [facility] Comment on above: Performed By: #### C SARAH, LIVER #### [facility] [address] [place] [address] Dr. Jessica Saravia ALP [Catalytic activity/Vol] 92 U/L Normal 38-126 [facility] Comment on above: Performed By: #### C SARAH, LIVER #### [facility] [address] [place], [place] [address] Dr. Jessica Saravia ALT [Catalytic activity/Vol] 15 U/L Normal 9-52 [facility] Comment on above: Performed By: #### C SARAH, LIVER #### [facility] [address] [address] [address] Jessica Saravia AST [Catalytic activity/Vol] 15 U/L Normal 14-36 [facility] Comment on above: Performed By: #### C SARAH, LIVER #### [facility] [address] [address] [address] Jessica Saravia BILI, CONJUGATED 0.1 mg/dL Normal 0.0-0.3 [facility] Comment on above: Performed By: #### C SARAH, LIVER #### [facility] [address] [place] [address] Dr. Jessica Saravia Bilirubin [Mass/Vol] 0.4 mg/dL Normal 0.2-1.3 [facility] Comment on above: Performed By: #### C SARAH, LIVER #### [facility] [address] [address] [address] Jessica Saravia Globulin (S) [Mass/Vol] 4.3 g/dL Normal [facility] Comment on above: Performed By: #### C SARAH, LIVER #### [facility] [address] [address] [address] Jessica Saravia Protein [Mass/Vol] 7.1 g/dL Normal 6.1-8.2 [facility] Comment on above: Performed By: #### C SARAH, LIVER #### [facility] [address] [address] [address] Jessica Saravia SED RATE [facility] 2021 SED RATE 118 mm/hr Critically high <=30 [facility] Comment on above: Performed By: #### L IVER #### [facility] [address] [address] [address] Jessica Saravia Office Visit (Cardiology)on 10-28-2021 Follow-up visit Diagnoses/Problems Assessed Status post insertion of drug eluting coronary artery stent (V45.82) (Z95.5) History of ST elevation myocardial infarction (STEMI) (412) (I25.2) Ischemic cardiomyopathy (414.8) (I25.5) HTN (hypertension) (401.9) (I10) Mixed hyperlipidemia (272.2) (E78.2) Diabetes mellitus (250.00) (E11.9) Coronary artery disease involving [place] coronary artery of [place] heart without angina pectoris (414.01) (I25.10) Rheumatoid arthritis (714.0) (M06.9) Never a smoker Morbid obesity with BMI of 40.0-44.9, adult (278.01,V85.41) (E66.01,Z68.41) Orders Coronary artery disease involving [place] coronary artery of [place] heart without angina pectoris, HTN (hypertension), Ischemic cardiomyopathy, Mixed hyperlipidemia ALT - Alanine Aminotransferase, Serum; Status:Active - Retrospective Authorization; Requested for:27Dec2021; AST; Status:Active - Retrospective Authorization; Requested for:27Dec2021; Basic Metabolic Panel; Status:Active - Retrospective Authorization; Requested for:27Dec2021; Lipid Panel; Status:Active - Retrospective Authorization; Requested for:27Dec2021; Coronary artery disease involving [place] coronary artery of [place] heart without angina pectoris, Mixed hyperlipidemia Stop: [...] All medical record entries made by the Vandaibcleopatra were at my direction and personally dictated [...] 152/80. She sustained a very large inferior DE in August 2021 with extensive AngioJet thrombectomy [...] 1/2 cup (more content not included)... Normal [employer] Tobacco Screening.on 022 Tobacco use status [facility] b) No M [address] [address] [id number] DO Work Phone: Echocardiogramon 10-04-2021 Echocardiography [facility] [address] [place] [address], [address] [place] [address] TRANSTHORACIC ECHOCARDIOGRAM REPORT Patient Name: CHUCKY Finesse Physician: [id number] Kateryna DUNLAP MD Study Date: 10/04/2021 Referring [id number] LUKE HERRMANN Physician: MRN/PID: [id number] PCP: Reese Nixon MD Accession/Order#: [id number] [facility] Location: Date of : 1955 Fellow: Gender: F Nurse: Admit Date: [employer] Web Developer: Shana Phelps [facility] Height: 162.56 cm CC Report to: Weight: 126.10 kg Study Type: Echocardiogram BSA: 2.25 m2 Blood Pressure: 144 /94 mmHg Diagnosis/ICD: I25.5-Ischemic cardiomyopathy Indication: CAD, DE and PTCA-08/2021, Diabetes, Dyspnea, HTN, Rheumatoid Arthritis, Morbid Obesity Procedure/CPT: Echo Complete w Full [id number] Study Detail: The following Echo studies were [...] Normal Ranges: LVOT Diameter: 2.10 cm (1.8-2.4cm) [id number] Kateryna De Jesus MD Electronically signed on 10/04/2021 at 4:39:[address] [facility] Office Visit (Cardiology)on 10-04-2021 Follow-up visit Diagnoses/Problems Assessed Ischemic cardiomyopathy (414.8) (I25.5) Coronary artery disease involving [place] coronary artery of [place] heart without angina pectoris (414.01) (I25.10) HTN (hypertension) (401.9) (I10) Diabetes mellitus (250.00) (E11.9) Mixed hyperlipidemia (272.2) (E78.2) STEMI (ST elevation myocardial infarction) (410.90) (I21.3) Morbid obesity with BMI of 40.0-44.9, adult (278.01,V85.41) (E66.01,Z68.41) Orders Coronary artery disease involving [place] coronary artery of [place] heart without angina pectoris, Mixed hyperlipidemia ALT - Alanine Aminotransferase, Serum; Status:Active; Requested for:[id number]; AST; Status:Active; Requested for:[id number]; Lipid Panel; Status:Active; Requested for:[id number]; Ischemic cardiomyopathy Basic Metabolic Panel; Status:Active; Requested for:[id number]; Patient Instructions PLAN: Through informed decision making [...] list o (more content not included)... Normal [employer] Tobacco Screening.on Fall risk assessment a) No falls within the last year [facility] [place] Work Phone: Tobacco use status CPHS b) No M [facility] [place] Work Phone: Office Visit (Cardiology)on 09-20-2021 Follow-up visit Diagnoses/Problems Assessed Ischemic cardiomyopathy (414.8) (I25.5) ICM HFrEF LVEF 35% Aug 2021 cath: FC II Stage C GDMT: coreg AND entresto added Aug 31, 2021 No aldactone currently Coronary artery disease involving [place] coronary artery of [place] heart without angina pectoris (414.01) (I25.10) Aug 23, 2021 aspiration thrombectomy PDA AngioJet thrombectomy p-mRCA PCI/[facility] 02/10 dRCA PCI/[place] p/mRCA No left system disease STEMI (ST elevation myocardial infarction) (410.90) (I21.3) Aug 23, 2021 [facility] Emeregent management Dr. Herrmann HTN (hypertension) (401.9) (I10) optimal Mixed hyperlipidemia (272.2) (E78.2) Atorvastatin was new at discharge Will need labs beginning of October Diabetes mellitus (250.00) (E11.9) Good control On ARNI/statin Morbid obesity with BMI of 40.0-44.9, adult (278.01,V85.41) (E66.01,Z68.41) Reviewed the merits of healthy lifestyle choices on overall cardiovascular health. Orders Coronary artery disease involving [place] coronary artery of [place] heart without angina pectoris, Mixed hyperlipidemia Start: [...] contact the office if new symptoms arise. CURRICULUM SPECIALIST in 2 weeks Discussed the dynamic nature [...] phen 5-32 (more content not included)... Normal [employer] Tobacco Screening.on 021 Heart Rate Regular [email or web address] 250 [place] Work Phone: Tobacco use status CP b) No M [email or web address] 250 [place] Work Phone: Tobacco Screening.on 021 Fall risk assessment a) No falls within the last year [email or web address] 250 DO Work Phone: Tobacco use status CPHS b) No M [email or web address] 250 DO Work Phone: Vital Signs Date Time Vital Sign Value Performing Clinician Facility 10-25-2023 12:59-0500 Body temperature 97.5 [degF] DO [employer] Work Phone: [facility] 10-25-2023 12:59-0500 Body weight 110.67 kg DO [employer] Work Phone: [facility] 10-25-2023 12:59-0500 Diastolic blood pressure 76 mm[Hg] DO [employer] Work Phone: [facility] 10-25-2023 12:59-0500 Heart rate 72 /min DO [employer] Work Phone: [facility] 10-25-2023 12:59-0500 Respiratory rate 16 /min DO [employer] Work Phone: [facility] 10-25-2023 12:59-0500 SaO2% (BldA) [Mass fraction] 100 % DO [employer] Work Phone: [facility] 10-25-2023 12:59-0500 Systolic blood pressure 119 mm[Hg] DO Reese House Work Phone: [facility] 08-10-2023 11:04-0400 Diastolic blood pressure 90 mm[Hg] Luke Herrmann DO Work Phone: [facility] 08-10-2023 11:04-0400 Systolic blood pressure 120 mm[Hg] Luke Herrmann DO Work Phone: [facility] 08-10-2023 10:35-0400 Body height 162.6 cm Luke Herrmann DO Work Phone: [facility] 08-10-2023 10:35-0400 Body mass index (BMI) [Ratio] 42.57 kg/m2 Luke Herrmann DO Work Phone: [facility] 08-10-2023 10:35-0400 Body weight 112.49 kg Luke Herrmann DO Work Phone: [facility] 08-10-2023 10:35-0400 Heart rate 74 /min Luke Herrmann DO Work Phone: [facility] 04-20-2023 11:22-0400 Body height 165.1 cm DO Reese House Work Phone: [facility] 04-20-2023 11:22-0400 Body temperature 98.4 [degF] DO Reese House Work Phone: [facility] 04-20-2023 11:22-0400 Body weight 110.81 kg DO Reese House Work Phone: [facility] 04-20-2023 11:22-0400 Diastolic blood pressure 81 mm[Hg] DO Reese House Work Phone: [facility] 04-20-2023 11:22-0400 Heart rate 86 /min DO Reese House Work Phone: [facility] 04-20-2023 11:22-0400 Respiratory rate 20 /min DO Reese House Work Phone: [facility] 04-20-2023 11:22-0400 SaO2% (BldA) [Mass fraction] 97 % DO Reese Nixon Work Phone: [facility] 04-20-2023 11:22-0400 Systolic blood pressure 180 mm[Hg] DO Reese Nixon Work Phone: [facility] 11-08-2022 10:34-0500 Body height 162.56 cm Reese [employer] Work Phone: [facility] 250 DO Work Phone: 11-08-2022 10:34-0500 Body mass index (BMI) [Ratio] 40.85 kg/m2 Reese Good [employer] Work Phone: [facility] 250 DO Work Phone: 11-08-2022 10:34-0500 Body surface area Derived from formula 2.11 m2 Reese Good [employer] Work Phone: [facility] DO Work Phone: 11-08-2022 10:34-0500 Body weight 107.96 kg Reese Good [employer] Work Phone: [facility] 250 DO Work Phone: 11-08-2022 10:34-0500 Diastolic blood pressure 88 mm[Hg] Reese Good [employer] Work Phone: [facility] DO Work Phone: 11-08-2022 10:34-0500 Heart rate 80 /min Reese Good [employer] Work Phone: [facility] DO Work Phone: 11-08-2022 10:34-0500 Systolic blood pressure 138 mm[Hg] Reese Good [employer] Work Phone: [facility] DO Work Phone: 10-13-2022 08:35-0500 Body temperature 97.8 [degF] DO Reese House Work Phone: [facility] 10-13-2022 08:35-0500 Body weight 106.7 kg DO Reese House Work Phone: [facility] 10-13-2022 08:35-0500 Diastolic blood pressure 78 mm[Hg] DO Reese House Work Phone: [facility] 10-13-2022 08:35-0500 Heart rate 79 /min DO Reese House Work Phone: [facility] 10-13-2022 08:35-0500 Respiratory rate 16 /min DO Reese House Work Phone: [facility] 10-13-2022 08:35-0500 SaO2% (BldA) [Mass fraction] 100 % DO Reese House Work Phone: [facility] 10-13-2022 08:35-0500 Systolic blood pressure 135 mm[Hg] DO Reese House Work Phone: [facility] 03-01-2022 09:02-0400 Body height 162.56 cm DO Reese House Work Phone: [facility] 03-01-2022 09:02-0400 Body mass index (BMI) [Ratio] 40.3 kg/m2 DO Reese House Work Phone: [facility] 03-01-2022 09:02-0400 Body weight 106.59 kg DO Reese House Work Phone: [facility] 03-01-2022 09:02-0400 Diastolic blood pressure 70 mm[Hg] DO Reese House Work Phone: [facility] 03-01-2022 09:02-0400 Heart rate 76 /min DO Reese House Work Phone: [facility] 03-01-2022 09:02-0400 Respiratory rate 18 /min DO Reese House Work Phone: [facility] 03-01-2022 09:02-0400 SaO2% (BldA) [Mass fraction] 98 % DO Reese House Work Phone: [facility] 03-01-2022 09:02-0400 Systolic blood pressure 133 mm[Hg] DO Reese House Work Phone: [facility] 02-02-2022 13:50-0400 Body temperature 98 [degF] DO Reese House Work Phone: [facility] 02-02-2022 13:50-0400 Body weight 110.67 kg DO Reese House Work Phone: [facility] 02-02-2022 13:50-0400 Diastolic blood pressure 72 mm[Hg] DO Reese House Work Phone: [facility] 02-02-2022 13:50-0400 Heart rate 80 /min DO Reese House Work Phone: [facility] 02-02-2022 13:50-0400 Respiratory rate 16 /min DO Reese House Work Phone: [facility] 02-02-2022 13:50-0400 SaO2% (BldA) [Mass fraction] 95 % DO Reese House Work Phone: [facility] 02-02-2022 13:50-0400 Systolic blood pressure 146 mm[Hg] DO Reese House Work Phone: [facility] 01-13-2022 08:19-0400 Body height 165.1 cm DO Reese House Work Phone: [facility] 12-28-2021 15:13-0400 Diastolic blood pressure 73 mm[Hg] DO Reese House Work Phone: [facility] 12-28-2021 15:13-0400 Heart rate 72 /min DO Reese House Work Phone: [facility] 12-28-2021 15:13-0400 Respiratory rate 18 /min DO Reese [employer] Work Phone: [facility] 12-28-2021 15:13-0400 SaO2% (BldA) [Mass fraction] 95 % DO Reese Nixon Work Phone: [facility] 12-28-2021 15:13-0400 Systolic blood pressure 141 mm[Hg] DO Reese House Work Phone: [facility] 12-28-2021 13:48-0400 Body temperature 98.1 [degF] DO Reese Nixon Work Phone: [facility] 12-28-2021 13:48-0400 Inhaled oxygen flow rate 6 L/min DO Reese Nixon Work Phone: [facility] 12-28-2021 11:39-0400 Body height 162.56 cm DO Reese [employer] Work Phone: [facility] 12-28-2021 11:39-0400 Body mass index (BMI) [Ratio] 41.1 kg/m2 DO Reese Nixon Work Phone: [facility] 12-28-2021 11:39-0400 Body weight 108.86 kg DO Reese Nixon Work Phone: [facility] 11-16-2021 09:35-0500 Body temperature 97.9 [degF] DO Reese Nixon Work Phone: [facility] 11-16-2021 09:35-0500 Diastolic blood pressure 60 mm[Hg] DO Reese Nixon Work Phone: [facility] 11-16-2021 09:35-0500 Heart rate 67 /min DO Reese [employer] Work Phone: [facility] 11-16-2021 09:35-0500 Respiratory rate 16 /min DO Reese [employer] Work Phone: [facility] 11-16-2021 09:35-0500 SaO2% (BldA) [Mass fraction] 100 % DO Reese [employer] Work Phone: [facility] 11-16-2021 09:35-0500 Systolic blood pressure 118 mm[Hg] DO Reese House Work Phone: [facility] 10-28-2021 11:19-0500 Diastolic blood pressure 84 mm[Hg] Reese P House Work Phone: [facility] 250 DO Work Phone: 10-28-2021 11:19-0500 Systolic blood pressure 152 mm[Hg] Reese P House Work Phone: [facility] 250 DO Work Phone: 10-28-2021 10:57-0500 Body height 162.56 cm Reese P House Work Phone: [facility] 250 DO Work Phone: 10-28-2021 10:57-0500 Body mass index (BMI) [Ratio] 43.77 kg/m2 Reese Good House Work Phone: [facility] 250 DO Work Phone: 10-28-2021 10:57-0500 Body surface area Derived from formula 2.17 m2 Reese P House Work Phone: [facility] 250 DO Work Phone: 10-28-2021 10:57-0500 Body weight 115.67 kg Reese P House Work Phone: [facility] 250 DO Work Phone: 10-28-2021 10:57-0500 Diastolic blood pressure 100 mm[Hg] Reese P House Work Phone: [facility] 250 DO Work Phone: 10-28-2021 10:57-0500 Heart rate 77 /min Reese P House Work Phone: [facility] 250 DO Work Phone: 10-28-2021 10:57-0500 Systolic blood pressure 165 mm[Hg] Reese P House Work Phone: [facility] 250 DO Work Phone: 10-11-2021 13:37-0500 Diastolic blood pressure 84 mm[Hg] Reese P House Work Phone: [facility] 250 DO Work Phone: 10-11-2021 13:37-0500 Heart rate 82 /min Reese P House Work Phone: [facility] 250 DO Work Phone: 10-11-2021 13:37-0500 Systolic blood pressure 160 mm[Hg] Reese P House Work Phone: [facility] 250 DO Work Phone: 10-11-2021 13:30-0500 Body height 162.56 cm Reese P House Work Phone: [facility] 250 DO Work Phone: 10-11-2021 13:30-0500 Body mass index (BMI) [Ratio] 44.29 kg/m2 Reese P House Work Phone: [facility] 250 DO Work Phone: 10-11-2021 13:30-0500 Body surface area Derived from formula 2.18 m2 Reese P House Work Phone: [facility] DO Work Phone: 10-11-2021 13:30-0500 Body weight 117.03 kg Reese P House Work Phone: [facility] 250 DO Work Phone: 10-11-2021 13:30-0500 Diastolic blood pressure 100 mm[Hg] Reese P House Work Phone: [facility] 250 DO Work Phone: 10-11-2021 13:30-0500 Systolic blood pressure 160 mm[Hg] Reese P House Work Phone: [facility] 250 DO Work Phone: 10-05-2021 08:27-0500 28.8 1 Reese P House Work Phone: [facility] 250 DO Work Phone: Comment on above: FSL 10-04-2021 12:36-0500 Body height 162.56 cm Reese P House Work Phone: [facility] [place] Work Phone: 10-04-2021 12:36-0500 Body mass index (BMI) [Ratio] 44.11 kg/m2 Reese P House Work Phone: [facility] [place] Work Phone: 10-04-2021 12:36-0500 Body surface area Derived from formula 2.18 m2 Reese P House Work Phone: [facility] [place] Work Phone: 10-04-2021 12:36-0500 Body weight 116.58 kg Reese P House Work Phone: [facility] [place] Work Phone: 10-04-2021 12:36-0500 Diastolic blood pressure 94 mm[Hg] Reese P House Work Phone: [facility] [place] Work Phone: 10-04-2021 12:36-0500 Heart rate 72 /min Reese P House Work Phone: [facility] [place] Work Phone: 10-04-2021 12:36-0500 Systolic blood pressure 158 mm[Hg] Reese P House Work Phone: [facility] [place] Work Phone: 10-04-2021 12:36-0500 55 1 Reese P House Work Phone: [facility] [place] Work Phone: Comment on above: [id number] 09-20-2021 12:36-0500 Body height 162.56 cm Reese P House Work Phone: [facility] 250 DO Work Phone: 09-20-2021 12:36-0500 Body mass index (BMI) [Ratio] 44.8 kg/m2 Reese P House Work Phone: [facility] 250 DO Work Phone: 09-20-2021 12:36-0500 Body surface area Derived from formula 2.19 m2 Reese P House Work Phone: [facility] 250 DO Work Phone: 09-20-2021 12:36-0500 Body weight 118.39 kg Reese P House Work Phone: [facility] 250 DO Work Phone: 09-20-2021 12:36-0500 Diastolic blood pressure 84 mm[Hg] Reese P House Work Phone: [facility] 250 DO Work Phone: 09-20-2021 12:36-0500 Heart rate 74 /min Reese P House Work Phone: [facility] 250 DO Work Phone: 09-20-2021 12:36-0500 Systolic blood pressure 126 mm[Hg] Reese P House Work Phone: [facility] 250 DO Work Phone: 08-31-2021 14:50-0500 Body height 162.56 cm Reese P House Work Phone: [facility] 250 DO Work Phone: 08-31-2021 14:50-0500 Body mass index (BMI) [Ratio] 47.72 kg/m2 Reese P House Work Phone: [facility] 250 DO Work Phone: 08-31-2021 14:50-0500 Body surface area Derived from formula 2.25 m2 Reese P House Work Phone: [facility] 250 DO Work Phone: 08-31-2021 14:50-0500 Body weight 126.1 kg Reese P House Work Phone: [facility] 250 DO Work Phone: 08-31-2021 14:50-0500 Diastolic blood pressure 112 mm[Hg] Reese P House Work Phone: [facility] 250 DO Work Phone: 08-31-2021 14:50-0500 Heart rate 84 /min Reese P House Work Phone: [facility] 250 DO Work Phone: 08-31-2021 14:50-0500 Systolic blood pressure 166 mm[Hg] Reese P House Work Phone: [facility] 250 DO Work Phone: 08-24-2021 12:10-0500 50 1 Reese P House Work Phone: [facility] 250 DO Work Phone: Comment on above: [id number] Encounters Encounter Date Encounter Type Care Provider Facility Start: 12-04-2023 ambulatory Floresita Carlos Facility:[facility] Start: 10-31-2023 End: 11-01-2023 ambulatory Ant Gregory MD Facility:[facility] Start: 10-25-2023 End: 10-25-2023 ambulatory DO Reese Nixon Work Phone: [facility] Work Phone: Start: 10-25-2023 End: 10-25-2023 Registered Recurring DO Reese Nixon Work Phone: [facility] Work Phone: Start: 08-10-2023 End: 08-10-2023 ambulatory [facility] Start: 08-10-2023 End: 08-10-2023 Office outpatient visit 25 minutes Luke Palomodon DO Work Phone: [facility] Comment on above: Coronary artery dise ase involving [place] coronary artery of [place] heart without angina pectoris; History of ST elevation myocardial infarction (STEMI); Primary hypertension; Ischemic cardiomyopathy; Mixed hyperlipidemia; Type 2 diabetes mellitus with other specified complication, unspecified whether usp insulin use ([facility]); Class 3 severe obesity due to excess calories with serious comorbidity and body mass index (BMI) of 40.0 to 44.9 in adult ([facility]); Rheumatoid arthritis, involving unspecified site, unspecified whether rheumatoid factor present ([facility]); S/P right coronary artery (RCA) stent placement Start: 07-31-2023 End: 08-01-2023 ambulatory Ant Gregory MD Facility:[facility] Start: 07-24-2023 End: 07-24-2023 ambulatory DO Reese Nixon Work Phone: [facility] Work Phone: Start: 07-24-2023 End: 07-24-2023 Registered Recurring DO Reese Nixon Work Phone: [facility] Work Phone: Start: 07-06-2023 End: 07-07-2023 ambulatory Ant Gregory MD Facility:[facility] Start: 06-27-[address] [facility] Start: 06-21-2023 Rx Renewal Reese P Hous e Work Phone: [facility] 250 DO Work Phone: Start: 04-20-2023 End: 04-20-2023 ambulatory DO Reese Nixon Work Phone: [facility] Work Phone: Start: 04-20-2023 End: 04-20-2023 Registered Recurring DO Reese Nixon Work Phone: [facility] Work Phone: Start: 2022 Rx Renewal Reese P Hous [facility] Work Phone: [facility] 250 DO Work Phone: Start: 12-13-2022 Rx Renewal Reese P Hous [facility] Work Phone: [facility] 250 DO Work Phone: Start: 11-12-2022 End: 11-13-[address] LUKE HERRMANN Facility: Start: 11-08-[address] Luke Herrmann Facility: Start: 11-08-2022 FUV, Provider: Luke Herrmann, Status: Pen, Time: 10:10 AM Reese Nixon Work Phone: [facility] 250 DO Work Phone: Start: 11-08-2022 Office outpatient vi sit 25 minutes Reese P House Work Phone: [facility] 250 DO Work Phone: Start: 11-07-2022 Rx Renewal Reese P Hous [facility] Work Phone: [facility] DO Work Phone: Start: 10-31-2022 Rx Renewal Reese P Hous [facility] Work Phone: [facility] 250 DO Work Phone: Start: 10-13-2022 End: 10-13-2022 ambulatory DO Reese House Work Phone: [facility] Work Phone: Start: 10-13-2022 End: 10-13-2022 Registered Recurring DO Reese House Work Phone: [facility] Work Phone: Start: 09-01-2022 FUV, Provider: Luke Herrmann, Status: Pen, Time: 11:40 AM Reese P House Work Phone: [facility] 250 DO Work Phone: Start: 08-30-2022 Rx Change Reese P Hous [facility] Work Phone: [facility] 250 DO Work Phone: Start: 08-29-2022 End: 08-30-2022 ambulatory ZOE LATIF Facility:[facility] Start: 08-09-2022 Rx Renewal Reese P Hous e Work Phone: [facility] 250 DO Work Phone: Start: 06-16-2022 End: 06-17-[address] DOROTEO SAMAYOA Facility:[facility] Start: 05-30-2022 End: 05-31-2022 ambulatory ZOE LATIF Facility:[facility] Start: 04-30-2022 End: 05-01-[address] REESE NIXON Facility:[facility] Start: 03-21-2022 End: 03-22-[address] DOROTEO SAMAYOA Facility:[facility] Start: 03-01-2022 End: 03-01-2022 Admission to same day surgery center DO Reese Nixon Work Phone: [facility]-CT Scan [facility] [place] Start: 02-02-2022 End: 02-02-2022 Registered Recurring DO Reese Nixon Work Phone: [facility] Start: 01-26-2022 End: 01-27-[address] DOROTEO SAMAYOA Facility:[facility] Start: 12-28-2021 End: 12-28-2021 Admission to same day surgery center DO Reese Nixon Work Phone: [facility]-Surgery Center [facility] [place] Start: 12-27-2021 End: 12-28-[address] DOROTEO SAMAYOA Facility:[facility] Start: 12-24-2021 End: 12-24-2021 Patient encounter procedure DO Reese Nixon Work Phone: [facility]-Pre-Surgical Testing Start: 12-21-2021 Rx Renewal Reese P Hous [facility] Work Phone: [facility] DO Work Phone: Start: 12-14-2021 End: 12-14-2021 Patient encounter procedure DO Reese Nixon Work Phone: [facility]Pre-Surgical Testing Start: 12-08-2021 End: 12-09-[address] DOROTEO SAMAYOA Facility:[facility] Start: 11-16-2021 End: 11-16-2021 Admission to same day surgery center DO Reese Nixon Work Phone: [facility]-Ultrasound Cntr for Breast Car Start: 11-04-2021 End: 11-04-2021 Patient encounter procedure DO Reese House Work Phone: [facility]-Center for Breast Care Start: 10-28-2021 Office outpatient vi sit 25 minutes Reese P House Work Phone: [facility] DO Work Phone: Start: 10-11-2021 Office outpatient vi sit 5 minutes Reese P House Work Phone: [facility] DO Work Phone: Start: 10-04-2021 Patient encounter procedure Reese P House Work Phone: [facility] [place] Work Phone: Start: 09-20-2021 Office outpatient vi sit 15 minutes Reese P House Work Phone: [facility] [employer] DO Work Phone: Start: 09-20-2021 Rx Renewal Reese P Hous [facility] Work Phone: [facility] DO Work Phone: Start: 09-03-2021 Telephone encounter Reese Good House Work Phone: [facility] [employer] DO Work Phone: Start: 08-31-2021 Transitional care nikkie berry srvc 7 day discharge Reese Nixon Work Phone: [facility] [employer] 250 DO Work Phone: Procedures Date Procedure Procedure Detail Performing Clinician Start: 08-09-2023 History of placement of stent for coronary artery disease S/P right coronary artery (RCA) stent placement Luke Herrmann DO Work Phone: Start: 02-21-2023 Dual energy X-ray absorptiometry DO [employer] Phone: Start: 03-01-2022 CT of chest without contrast DO [employer] Phone: Start: 02-07-2022 Positron emission tomography with computed tomography DO [employer] Phone: Start: 12-28-2021 Mammography of left breast specimen DO [employer] Phone: Start: 12-28-2021 Biopsy of breast DO Janay stewart [employer] Phone: Start: 12-28-2021 Radionuclide sentine l lymph node study DO [employer] Phone: Start: 12-27-2021 Mammography of left breast DO [employer] Phone: Start: 12-27-2021 Ultrasonography guid ed needle localization of lesion of left breast DO [employer] Work Phone: Start: 11-16-2021 Mammography of left breast DO [facility] [employer] Phone: Start: 11-16-2021 Core needle biopsy o f breast using ultrasound guidance DO [employer] Work Phone: Start: 11-04-2021 Ultrasonography of l eft breast DO [employer] Work Phone: Start: 11-04-2021 Bilateral mammography D O [employer] Work Phone: Start: 10-04-2021 Echocardiography Trace nilsa Good [employer] Work Phone: History of placement of stent for coronary artery disease Status post insertion of drug eluting coronary artery stent Reese Good [employer] Work Phone: History of placement of stent for coronary artery disease S/P right coronary artery (RCA) stent placement Luke Nilsa Herrmann Work Phone: Lumpectomy of breast Reese [employer] Work Phone: Operative procedure on ankle Reese Good [employer] Work Phone: NEGATED: Highlighted row has not occurred! Total colonoscopy Reese Good [employer] Work Phone: Plan of Treatment Date Care Activity Detail Author Start: 08-10-2023 End: 08-10-2024 Alanine aminotransferase [Enzymatic activity/volume] in Serum or Plasma by With P-5'-P Alanine Aminotransferase Lab Routine Mixed hyperlipidemia Expected: 08/10/2023 (Approximate), Expires: 08/10/2024 [facility] Service Area Work Phone: Comment on above: Expected: 08/10/2023 (Approximate), Expi res: 08/10/2024 Start: 08-10-2023 End: 08-10-2024 Aspartate aminotransferase [Enzymatic activity/volume] in Serum or Plasma by With P-5'-P Aspartate Aminotransferase Lab Routine Mixed hyperlipidemia Expected: 08/10/2023 (Approximate), Expires: 08/10/2024 [facility] Work Phone: Comment on above: Expected: 08/10/2023 (Approximate), Expi res: 08/10/2024 Start: 08-10-2023 End: 08-10-2024 C reactive protein [Mass/volume] in Serum or Plasma by High sensitivity method High sensitivity CRP Lab Routine Coronary artery disease involving [place] coronary artery of [place] heart without angina pectoris Ischemic cardiomyopathy Expected: 08/10/2023 (Approximate), Expires: 08/10/2024 [facility] Work Phone: Comment on above: Expected: 08/10/2023 (Approximate), Expi res: 08/10/2024 Start: 08-10-2023 End: 08-10-2024 Lipid 1996 panel - Serum or Plasma Lipid Panel Lab Routine Mixed hyperlipidemia Expected: 08/10/2023 (Approximate), Expires: 08/10/2024 [facility] Work Phone: Comment on above: Expected: 08/10/2023 (Approximate), Expi res: 08/10/2024 Start: 06-27-2023 FUV, Provider: Luke Herrmann, Status: Pen, Time: 11:20 AM FUV, Provider: Luke Herrmann, Status: Pen, Time: 11:20 AM [facility] 250 DO Work Phone: Start: 06-16-2023 Influenza vaccination Influenza Vaccine (#1) [facility] Start: 11-08-2022 FUV, Provider: Luke Herrmann, Status: Pen, Time: 10:10 AM FUV, Provider: Luke Herrmann, Status: Pen, Time: 10:10 AM [facility] 250 DO Work Phone: Start: 09-01-2022 FUV, Provider: Luke Herrmann, Status: Pen, Time: 11:40 AM FUV, Provider: Luke Herrmann, Status: Pen, Time: 11:40 AM [facility] 250 DO Work Phone: Start: 05-10-2022 FUV, Provider: Luke Herrmann, Status: Pen, Time: 1:50 PM FUV, Provider: Luke Herrmann, Status: Pen, Time: 1:50 PM [facility] 250 DO Work Phone: Start: 12-07-2021 FUV, Provider: Luke Herrmann, Status: Pen, Time: 2:00 PM FUV, Provider: Luke Herrmann, Status: Pen, Time: 2:00 PM -[facility] 250 DO Work Phone: Start: 10-27-2021 FUV, Provider: Luke Herrmann, Status: Pen, Time: 11:30 AM FUV, Provider: Luke Herrmann, Status: Pen, Time: 11:30 AM -[facility] 250 DO Work Phone: Start: 10-11-2021 NURSEVST, Provider: ROSA STEPHENSON [employer]GER [employer] 1,[id number], Status: Pen, Time: 1:00 PM NURSEVST, Provider: ROSA STEPHENSON MANAGER [employer] 1,[id number], Status: Pen, Time: 1:00 PM -[facility] [address] [place] Work Phone: Start: 10-04-2021 ECHO, Provider: [place] [facility] 01,[id number], Status: Pen, Time: 1:30 PM ECHO, Provider: [place] [facility] [employer] 01,[id number], Status: Pen, Time: 1:30 PM -[facility] 250 DO Work Phone: Start: 10-04-2021 FUV, Provider: Salima Penaloza, Status: Pen, Time: 12:30 PM FUV, Provider: Salima Penaloza, Status: Pen, Time: 12:30 PM -[facility] 250 DO Work Phone: Start: 09-20-2021 FUV, Provider: Salima Penaloza, Status: Pen, Time: 12:30 PM FUV, Provider: Salima Penaloza, Status: Pen, Time: 12:30 PM -[facility] 250 DO Work Phone: Start: 2006 Zoster Vaccines (1 of 2) Zoster Vaccines (1 of 2) [facility] Start: 1978 DTaP/Tdap/Td Vaccines (1 - Tdap) DTaP/Tdap/Td Vaccines (1 - Tdap) [facility] Start: 12-23-1975 Urine screening for protein Diabetes: Urine Protein Screening [facility] Start: 1974 Hepatitis C screening Hepatitis C Screening [facility] Start: 1966 Diabetic foot examination Diabetes: Foot Exam [facility] Start: 1966 Glaucoma screening Diabetes: Retinopathy Screening [facility] Start: 1962 Pneumococcal Vaccine: 65+ Years (1 - PCV) Pneumococcal Vaccine: 65+ Years (1 - PCV) [facility] Start: 06-24-1957 COVID-19 Vaccine (#1) COVID-19 Vaccine (#1) [facility] Start: 1956 Hemoglobin A1c measurement Diabetes: Hemoglobin A1C [facility] Start: 1956 Lipid panel Lipid Panel [facility] Start: 1956 Medicare Annual Wellness Visit Medicare Annual Wellness Visit (AWV) [facility] Start: 1956 Screening for malignant neoplasm of colon [facility] Start: 1956 Screening for osteoporosis Bone Density Scan [facility] Start: 1956 Thyroid stimulating hormone measurement TSH Level [facility] Computed tomography for radiotherapy planning [facility] MG Breast - bilatera l Diagnostic [facility] Patient referral [facility] Work Phone: [facility] Payers Date Payer Category Payer Unknown 2022 Self-pay [id number] 2022 Unknown [id number] 2022 Unknown [id number] 2014 Medicare MEDICARE MEDICAR E PART A AND B [id number] 2014-Present [address] [place] [address] [id number] 1959 Medicare [id number] 1959 Unknown [id number] 1959 Unknown [id number] 1956 Unknown [id number] 2.16.840.1.430035.3.579.2.593 1956 Unknown [id number] 2.16.840.1.095043.3.579.2.593 1956 Unknown [id number] 2.16.840.1.753379.3.579.2.593 1956 Unknown [id number] 2.16.840.1.925472.3.579.2.593 1956 Unknown [id number] 2.16.840.1.255213.3.579.2.593 1956 Unknown [id number] 2.16.840.1.339375.3.579.2.593 1956 Unknown [id number] 2.16.840.1.811519.3.579.2.593 1956 Unknown [id number] 2.16.840.1.242724.3.579.2.593 1956 Unknown [id number] 2.16.840.1.369239.3.579.2.593 1956 Unknown [id number] 2.16.840.1.741283.3.579.2.593 1956 Unknown [id number] 2.16.840.1.117642.3.579.2.593 1956 Unknown [id number] 2.16.840.1.714943.3.579.2.593 1956 Unknown [id number] 2.16.840.1.670802.3.579.2.356 1956 Unknown [id number] 2.16.840.1.521883.3.579.2.356 1956 Unknown [id number] 2.16.840.1.332641.3.579.2.1244 1956 Unknown [id number] 2.16.840.1.465416.3.579.2.718 1956 Unknown [id number] 2.16.840.1.017514.3.579.2.718 1956 Unknown [id number] 2.16.840.1.476996.3.579.2.718 Unknown [id number] 2.16.840.1.161267.3.579.2.531 Social History Date Type Detail Facility Start: 08-10-2023 No alcohol use No alcohol use -[facility] 250 DO Work Phone: Comment on above: 2 cups daily, diet p op occasional; 1/2 cup daily; Start: 01-13-2022 End: 10-25-2023 Tobacco smoking status NHIS Never smoked tobacco (finding) [facility] Start: 1955 Sex Assigned At Female F [facility] Start: 08-10-2023 Tobacco use and exposure Smokeless tobacco non-user [facility] Work Phone: Start: 08-10-2023 Alcohol intake Lifetime non-d amanda (finding) [facility] Work Phone: Start: 08-10-2023 Tobacco use panel [facility] Work Phone: Start: 1955 Sex Assigned At Not on file [facility] Work Phone: Start: 07-31-2023 End: 08-10-2023 Exposure to SARS-CoV-2 (event) Not sure [facility] Medical Equipment Procedure Code Equipment Code Equipment Origin al Text Equipment Identifier Dates Biopsy, breast, with lumpectomy Imaging lesion localization marker, implantable [id number] FDA Start: 12-28-2021 Drug-eluting coronary artery stent, els-qnydhmncbluhk-ux lymer-coated ()[id number] FDA Start: 08-23-2021 Drug-eluting coronary artery stent, iti-xxzqlyfngarqi-vb lymer-coated ()[id number] FDA Start: 08-23-2021 Goals Date Patient Goal [...] nitrate usage recurrent hospitalizations. She had inferior DE July 2021 with AngioJet thrombectomy and 2 [...] No diagnosis found. documented in this encounter [facility] Work Phone: 08-10-2023 Instructions Ajith Metz MA [...] of your visit. documented in this encounter [facility] Work Phone: 07-25-2023 Progress note Note Date/Time July 24, 2023 11:51am [facility] [place] [id number] Hem/Onc Follow Up Note - OP Signed Patient: Chucky Dunlap MR#: [id number] : 1955 Acct:[id number] Age/Sex: 67 / F Type: REG RCR [...] to Dr. Latif of pulmonary medicine at [place]. Her most recent follow-up with him after [...] scan was performed February 12, 2021 at [facility] revealing baseline osteopenia/decreased bone density. [...] the left lung base. Dr. Latif at [place] referred her to Dr. Patel of CT [...] was performed 11/24/2021 revealing invasive lobular carcinoma, Hartfield histologic grade 2 (3+2+1 equal 6). Lobular [...] PET/CT. Pathology invasive lobular carcinoma, ER 95%, TN 0%, HER-2 nonamplified by FISH. 2. History [...] Negative for environmental allergies and food allergies. [facility] - Medical History Medical History: Medical [...] PET/CT. Pathology invasive lobular carcinoma, ER 95%, TN 0%, HER-2 nonamplified by FISH. Oncotype DX [...] these nodules. We are requesting her outside [place] CT for our records. 04/20/2023: Chucky is [...] She has not followed up with Dr. Samayoa in [...] discuss pain and possible referral to another phlebotomy technologist - in the interim; I will give [...] for coordination of care (as documented) and rfgd-uh-trcq counseling of patient and/or family. Dictated By: Lizzie Galeas APRN DD/ 1150 Signed By: <Electronically signed by DAY Galeas> 07/25/23 2738 [facility] Work Phone: 1(842) 440-729507-06-2023 Progress note Author Lizzie Galeas [facility] April 20, 2023 1:09pm Note Date/Time April 20, 2023 12:27 pm [facility] [place] [id number] Hem/Onc Follow Up Note - OP Signed Patient: Chucky Dunlap MR#: [id number] : 1955 Acct:[id number] Age/Sex: 67 / F Type: REG RCR [...] to Dr. Latif of pulmonary medicine at [place]. Her most recent follow-up with him after [...] scan was performed February 12, 2021 at [facility] revealing baseline osteopenia/decreased bone density. [...] the left lung base. Dr. Latif at [place] referred her to Dr. Patel of CT [...] lymphnode biopsy. This revealed invasive lobular carcinoma, Hartfield histologic grade 2, size 2.4 cm, associated [...] PET/CT. Pathology invasive lobular carcinoma, ER 95%, TN 0%, HER-2 nonamplified by FISH. 2. History [...] Negative for environmental allergies and food allergies. [facility] - Medical History Medical History: Medical [...] PET/CT. Pathology invasive lobular carcinoma, ER 95%, TN 0%, HER-2 nonamplified by FISH. Oncotype DX [...] these nodules. We are requesting her outside [place] CT for our records. 04/20/2023: Chucky is [...] myocardial infarction The patient had ST elevation DE with left heart catheterization August 2021 showing [...] for coordination of care (as documented) and mwoo-ce-zjhx counseling of patient and/or family. Dictated By: Lizzie Galeas APRN DD/ 1226 Signed By: <Electronically signed by DAY Galeas> 04/20/23 1306 [facility] Work Phone: 1(876) 893-398012-29-2022 Progress note Author Floresita Gonzalez [facility] October 13, 2022 9:14am Note Date/Time October 13, 2022 8:45am [facility] [place] [address] Hem/Onc Follow Up Note - OP Signed Patient: Chucky Dunlap MR#: [id number] : 1955 Acct:[id number] Age/Sex: 66 / F Type: REG RCR Copies to: Reese Nixon, DO Salty Gonzalez, DO Zoe Latif, DO Doroteo Samayoa MD~ Subjective Date/Time of Service: Date of Service: 10/13/2022 Time of Service: 08:45 Chief Complaint: Patient is here today for a 6 month follow up visit for breast cancer HPI: 10/13/2022: W transferred her care from Dr. Patel to Dr. Latif of pulmonary medicine at [place]. Her most recent follow-up with him after [...] scan was performed February 12, 2021 at [facility] revealing baseline osteopenia/decreased bone density. [...] the left lung base. Dr. Latif at [place] referred her to Dr. Patel of CT [...] was performed 11/24/2021 revealing invasive lobular carcinoma, Hartfield histologic grade 2 (3+2+1 equal 6). Lobular [...] PET/CT. Pathology invasive lobular carcinoma, ER 95%, TN 0%, HER-2 nonamplified by FISH. 2. History [...] Negative for environmental allergies and food allergies. [facility] - History Attestation statement: The following [...] review - Impressions Outside CT imaging from [place] is being requested for her records. Followed by Dr. Latif. Assessment and Plan - TNM Staging Staging: T2 N0 MX (2.4 cm, 4 lymph nodes negative) left breast cancer found incidentally on PET/CT. Pathology invasive lobular carcinoma, ER 95%, TN 0%, HER-2 nonamplified by FISH. Oncotype DX [...] these nodules. We are requesting her outside [facility] for our records. Moderate complexity visit over [...] myocardial infarction The patient had ST elevation DE with left heart catheterization August 2021 showing [...] for coordination of care (as documented) and wvvf-nk-cjzh counseling of patient and/or family. Dictated By: Floresita Gonzalez MD DD/ 0845 Signed By: <Electronically signed by MD Floresita Gonzalez> 10/13/22 0914 [facility] Work Phone: 1([phone]) 408-771606-20-2022 Progress note Author Della Louis [facility] April 04, 2022 3:32pm Note Date/Time April 04, 2022 11:2 3am [facility] [place] [address] Rad Onc Follow Up Note - OP Signed Patient: Chucky Dunlap MR#: [id number] : 1955 Acct:[id number] Age/Sex: 66 / F Type: REG RCR [...] was LCIS with associated microcalcifications. ER positive TN negative HER-2 negative by FISH. December 28, [...] limits Dictated By: Della Louis MD DD/ 21 Signed By: <Electronically signed by Della Louis MD> 04/04/22 1532 [facility] Work Phone: 1(281) 228-827006-20-2022 Progress note Author Lizzie Galeas [facility] April 04, 2022 12:49pm Note Date/Time April 04, 2022 11:4 8am [facility] [place] [address] Hem/Onc Follow Up Note - OP Signed Patient: Chucky Dunlap MR#: [id number] : 1955 Acct:[id number] Age/Sex: 66 / F Type: REG RCR Copies to: DO Salty James, DO~ Subjective Date/Time of Service: Date of [...] scan was performed February 12, 2021 at [facility] revealing baseline osteopenia/decreased bone density. [...] the left lung base. Dr. Latif at [place] referred her to Dr. Patel of CT [...] was performed 11/24/2021 revealing invasive lobular carcinoma, Hartfield histologic grade 2 (3+2+1 equal 6). Lobular [...] PET/CT. Pathology invasive lobular carcinoma, ER 95%, TN 0%, HER-2 nonamplified by FISH. 2. History [...] Negative for environmental allergies and food allergies. [facility] - Medical History Medical History: Medical [...] Results - Impressions Patient: Chucky Dunlap MR#: [id number] : 1955 Acct:[id number] Age/Sex: 66 / F ADM Date: 2 Loc: Room: [facility] Attending Dr: Floresita Gonzalez MD Ordering Provider: [...] PET/CT. Pathology invasive lobular carcinoma, ER 95%, TN 0%, HER-2 nonamplified by FISH. Oncotype DX [...] myocardial infarction The patient had ST elevation DE with left heart catheterization August 2021 showing [...] for coordination of care (as documented) and cshl-zl-nrgf counseling of patient and/or family. Dictated By: Lizzie Galeas APRN DD/ 1148 Signed By: <Electronically signed by DAY Galeas> 04/04/22 1249 [facility] Work Phone: 1(980) 749-194504-21-2022 Progress note Author Floresita Gonzalez [facility] February 03, 2022 12:11pm Note Date/Time February 02, 2022 1:5 5pm [facility] [address] Hem/Onc Follow Up Note - OP Signed Patient: Chucky Dunlap MR#: [id number] : 1955 Acct:[id number] Age/Sex: 66 / F Type: REG RCR [...] scan was performed February 12, 2021 at [facility] revealing baseline osteopenia/decreased bone density. [...] the left lung base. Dr. Latif at [place] referred her to Dr. Patel of CT [...] was performed 11/24/2021 revealing invasive lobular carcinoma, Hartfield histologic grade 2 (3+2+1 equal 6). 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 Estrogen receptor +95%, progesterone receptor -0%, HER-2/ortiz was equivocal by IHC but negative by FISH. She was referred to Dr. Gonzalez for left breast lumpectomy with sentinel lymphnode biopsy. This revealed invasive lobular carcinoma, Hartfield histologic grade 2, size 2.4 cm, associated [...] PET/CT. Pathology invasive lobular carcinoma, ER 95%, TN 0%, HER-2 nonamplified by FISH. 2. History [...] Negative for environmental allergies and food allergies. [facility] - History Attestation statement: The following [...] M.D.09/29/2021 11:44 AM 02/12/2021 DEXA scan at [facility]: AP spine T score -1.4, osteopenia Left femoral neck T score -1.3, osteopenia Right femoral neck T score -1.1, osteopenia Assessment and Plan - TNM Staging Staging: T2 N0 MX (2.4 cm, 4 lymph nodes negative) left breast cancer found incidentally on PET/CT. Pathology invasive lobular carcinoma, ER 95%, TN 0%, HER-2 nonamplified by FISH. Oncotype DX [...] myocardial infarction The patient had ST elevation DE with left heart catheterization August 2021 showing [...] for coordination of care (as documented) and czfm-me-lehr counseling of patient and/or family. Dictated By: Floresita Gonzalez MD DD/ 1353 Signed By: <Electronically signed by MD Floresita Gonzalez> 02/03/22 1211 [facility] Work Phone: 1([phone]) [phone] Consult note Author Floresita Gonzalez [facility] January 13, 2022 3:36pm Note Date/Time January 13, 2022 8:3 2am [facility] [place] [address] Hem/Onc Consult Note - OP Signed Patient: Chucky Dunlap MR#: [id number] : 1955 Acct:[id number] Age/Sex: 66 / F Type: REG RCR [...] node negative invasive lobular carcinoma. ER 95%, TN 0, HER-2/ortiz 2+ by IHC (indeterminate) but [...] the left lung base. Dr. Latif at [place] referred her to Dr. Patel of CT [...] lymphnode biopsy. This revealed invasive lobular carcinoma, Hartfield histologic grade 2, size 2.4 cm, associated [...] and to determine further plan of therapy. [facility] - History Attestation statement: The following [...] PET/CT. Pathology invasive lobular carcinoma, ER 95%, TN 0%, HER-2 nonamplified by FISH. 2. History [...] PET/CT. Pathology invasive lobular carcinoma, ER 95%, TN 0%, HER-2 nonamplified by FISH. (1) Malignant [...] do not hesitate to contact me. Sincerely, lForesita Gonzalez MD, FACP Medical Oncology (2) Pulmonary nodules/lesions, multiple Bibasilar pulmonary nodules on PET/CT September 2021. She will have follow-up with Dr. Patel post CT surgery prior to her next [...] myocardial infarction The patient had ST elevation DE with left heart catheterization August 2021 showing [...] for coordination of care (as documented) and uosl-cj-xxib counseling of patient and/or family. Dictated By: Floresita Gonzalez MD DD/ 1 Signed By: <Electronically signed by MD Floresita Gonzalez> 01/13/22 0612 [facility] Work Phone: 1([phone]) [phone] Consult note Author Della Louis [facility] January 13, 2022 10:04am Note Date/Time January 12, 2022 3:4 7pm [facility] [place] [address] Rad Onc Consult Note - OP Signed Patient: Chucky Dunlap MR#: [id number] : 1955 Acct:[id number] Age/Sex: 66 / F Type: REG RCR Copies to: MD Reese Paulnio DO Fredric Itzkowitz, DO~ Assessment & Plan [...] was LCIS with associated microcalcifications. ER positive TN negative HER-2 negative by FISH. December 28, [...] Oncotype DX as well as antihormonal therapy. [facility] - Medical History Medical History: Medical [...] abdomen. Dictated By: Della Louis MD DD/ [id number] Signed By: <Electronically signed by Della Louis MD> 01/13/[address] [facility] Work Phone: Chiyw complaint Narrative - Reported* Patient is a [...] use either lower dose ARB or HAYLEE [facility] 250 DO Work Phone: Chief complaint Narrative - [...] use either lower dose ARB or HAYLEE -[facility] [address] [place] Work Phone: Chief complaint Narrative - Reported* [...] use either lower dose ARB or HAYLEE [facility] Work Phone: Evaluation noteNo assessment information available [facility] Work Phone: Evaluation note* Diagnosis Onset Date Resolution Status Breast cancer, left breast a cute ST elevation (STEMI) myocardial infarction acute Abnormal positron emission t omography (PET) scan of head chronic [id number] chronic Pulmonary nodules/lesions, multiple chronic [facility] Work Phone: Evaluation note* Diagnosis Onset Date Resolution Status Breast cancer, left breast a cute Abnormal positron emission t omography (PET) scan of head chronic [id number] chronic Osteopenia chronic Pulmonary nodules/lesions, multiple chronic ST elevation (STEMI) myocardial infarction chronic Use of aromatase inhibitors chronic [facility] Work Phone: Evaluation note* Diagnosis Onset Date Resolution Status Breast cancer, left breast a cute Abnormal positron emission t omography (PET) scan of head chronic [id number] chronic Osteopenia chronic Pulmonary nodules/lesions, multiple chronic Rheumatoid arthritis chronic Skin candidiasis chronic ST elevation (STEMI) myocardial infarction chronic Use of aromatase inhibitors chronic [facility] Work Phone: Evaluation note* Diagnosis Coronary artery disease involving [place] coronary artery of [place] heart without angina pectoris History of ST elevation myocardial infarction (STEMI) Primary hypertension Unspecified essential hypertension Ischemic cardiomyopathy Other specified forms of chronic ischemic heart disease Mixed hyperlipidemia Type 2 diabetes mellitus with other specified complication, unspecified whether 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 Due For: electrolytes. -[facility] 250 DO Work Phone: Hospital Discharge instructionsAmbulatory Orders* Obtain Medical Records From: Time Frame: 1 Day, Location: Determined By Patient * Place on Tumor Board Time Frame: 1 Week, Location: Determined By Patient [facility] Work Phone: Progress note Author [facility] October 13, 2022 9:14am Note Date/Time October 13, 2022 8:45am [facility] [place] [address] Hem/Onc Follow Up Note - OP Signed Patient: Chucky Dunlap MR#: [id number] : 1955 Acct:[id number] Age/Sex: 66 / F Type: REG RCR Copies to: Reese Nixon, DO Salty Gonzalez, DO Zoe Latif, DO Doroteo Samayoa MD~ Subjective Date/Time of Service: Date of Service: 10/13/2022 Time of Service: 08:45 Chief Complaint: Patient is here today for a 6 month follow up visit for breast cancer HPI: 10/13/2022: W transferred her care from Dr. Patel to Dr. Latif of pulmonary medicine at [place]. Her most recent follow-up with him after [...] scan was performed February 12, 2021 at [facility] revealing baseline osteopenia/decreased bone density. [...] the left lung base. Dr. Latif at [place] referred her to Dr. Patel of CT [...] PET/CT. Pathology invasive lobular carcinoma, ER 95%, TN 0%, HER-2 nonamplified by FISH. 2. History [...] Negative for environmental allergies and food allergies. [facility] - History Attestation statement: The following [...] review - Impressions Outside CT imaging from [place] is being requested for her records. Followed by Dr. Latif. Assessment and Plan - TNM Staging Staging: T2 N0 MX (2.4 cm, 4 lymph nodes negative) left breast cancer found incidentally on PET/CT. Pathology invasive lobular carcinoma, ER 95%, TN 0%, HER-2 nonamplified by FISH. Oncotype DX [...] returned negative for malignancy. I contacted Dr. aPtel to discuss follow-up PET/CT to determine status [...] these nodules. We are requesting her outside [facility] for our records. Moderate complexity visit over [...] myocardial infarction The patient had ST elevation DE with left heart catheterization August 2021 showing [...] for coordination of care (as documented) and [id number] counseling of patient and/or family. Dictated By: Floresita Gonzalez MD DD/ 0845 Signed By: <Electronically signed by MD Floresita Gonzalez> 10/13/22 0914 [facility] Work Phone: Reason for referral (narrative)* Consultation (Routine) - Authorized Specialty Diagnoses / Procedures Referred By Contac t Referred To Contact Cardiology Diagnoses Coronary artery disease involving [place] coronary artery of [place] heart without angina pectoris Primary hypertension Ischemic cardiomyopathy Procedures Follow Up In Cardiology Luke Herrmann DO [address] [facility] [address], [address] [address] Luke Herrmann DO [facility] [facility] [address], [address] [address] Referral ID Status Reason Start Date Expiration Date V isits Requested Visits Authorized [id number] Authorized 08/10/2023 08/09/2024 1 1 T [facility] Work Phone: Family History No [...] * She sustained a very large inferior DE in August 2021 with extensive AngioJet thrombectomy [...] time. 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 Summary Purpose [...] positron emission tomography (PET) scan of head [id number] Pulmonary nodules/lesions, multiple Chief Complaint r91.8 Chief Complaint Breast Cancer Reason for Visit Breast cancer, left breast Abnormal positron emission tomography (PET) scan of head [id number] Osteopenia Pulmonary nodules/lesions, multiple ST elevation (STEMI) myocardial infarction Use of aromatase inhibitors Chief Complaint Breast Cancer Reason for Visit Breast cancer, left breast Abnormal positron emission tomography (PET) scan of head [id number] Osteopenia Pulmonary nodules/lesions, multiple Rheumatoid arthritis Skin candidiasis ST elevation (STEMI) myocardial infarction Use of aromatase inhibitors Additional Source Comments INFORMATION SOURCE (unrecogn ized section and content) DATE CREATED AUTHOR 10/06/2021 [facility] DATE CREATED AUTHOR AUTHOR'S ORGANIZ ATION 10/29/2021 [employer] DATE CREATED AUTHOR AUTHOR'S ORGANIZ ATION 11/14/2022 [facility] DATE CREATED AUTHOR AUTHOR'S ORGANIZ ATION 06/28/2023 [facility] DATE CREATED AUTHOR AUTHOR'S ORGANIZ ATION 08/13/2023 [facility] DATE CREATED AUTHOR AUTHOR'S ORGANIZ ATION 11/02/2023 [facility] DATE CREATED AUTHOR AUTHOR'S ORGANIZ ATION 12/05/2023 [facility] Care Teams (unrecognized sec tion and content) Team Status: Inactive Member Role Status Dates Reese Nixon DO Primary Care Provider Active Salty Gonzalez DO Attending Provider Active Team Status: Inactive Member Role Status Dates Reese Nixon , Primary Care Provider Active Marcin Patel MD Attending Provider Active Team Status: Active Member Role Status Dates Reese Nixon , Primary Care Provider Active Team Status: Active Member Role Status Dates Reese Nixon DO Primary Care Provider Active Salty Gonzalez DO Referring Provider Active Floresita Gonzalez MD Attending Provider Active Barge Captain Relationship Specialty Start Date End Date Reese Nixon DO [address] [place] [address] PCP - General 10/16/99 Goals (unrecognized section [...] BE BASED ON THE PRIMARY CLINICAL RECORDS. [facility] [facility] provides no warranty or guarantee of the accuracy or completeness of information in this document.
[2023-12-08 09:48] LABS: Hematocrit 35.2 % (36.0-48.0); Hemoglobin 10.8 g/dL (12.0-16.0); Mean Corpuscular HGB Conc 30.7 g/dL (29.9-35.2); Mean Corpuscular Hemoglobin 31.2 pg (26.7-34.0); Mean Corpuscular Volume 101.7 fL (81.0-99.0); Mean Platelet Volume 12.4 fL (9.5-13.5); Platelet Count 256 10^3/uL (150-450); Red Blood Count 3.46 10^6/uL (4.20-5.40); Red Cell Distribution Width 15.7 % (11.0-15.0); White Blood Count 9.1 10^3/uL (4.0-11.0)
[2023-12-08 09:53] LABS: Creatinine Urine Random 120.88 mg/dL (20.00-300.00); Protein Creatinine Ratio Urine 0.13; Total Protein Urine Random 15.8 mg/dL (<=11.9)
[2023-12-08 10:16] LABS: Alanine Aminotransferase 16 U/L (14-59); Albumin Level 2.9 g/dL (3.4-5.0); C Reactive Protein 4.71 mg/dL (<=0.50); Estimated GFR (African America 60 (>=60); Estimated GFR (Non-African Ame 49 (>=60)
[2023-12-08 10:30] LABS: Erythrocyte Sedimentation Rate 103 mm/hr (<=30)
[2023-12-08 12:22] LABS: Atypical Lymphocytes Abs Man 0.18; Eosinophils Absolute Manual 0.36 10^3/uL (0.00-0.70); Lymphocytes Absolute Manual 1.54 10^3/uL (1.20-3.80); Monocytes Absolute Manual 0.45 10^3/uL (0.30-0.80)
[2023-12-08 12:23] LABS: Segmented Neut Absolute Manual 6.55 10^3/uL (1.4-6.5)
[2023-12-09 05:07] LABS: Complement C3, Serum 165 mg/dL (82-167); Complement C4, Serum 27 mg/dL (12-38)
[2023-12-11 17:08] LABS: ANA Direct Positive (Negative); Anti-DNA (DS) Ab Qn 1 IU/mL (0-9); RNP Antibodies <0.2 AI (0.0-0.9); Sjogren's Anti-SS-A <0.2 AI (0.0-0.9); Sjogren's Anti-SS-B <0.2 AI (0.0-0.9)
[2023-12-11 18:08] LABS: Beta-2 Glycoprotein I Ab, IgA <9 (0-25); Beta-2 Glycoprotein I Ab, IgG <9 (0-20); Beta-2 Glycoprotein I Ab, IgM <9 (0-32); Hexagonal Phase Phospholipid 5 sec (0-11); Lupus Reflex Interpretation Comment: (.); PTT-LA 46.9 sec (0.0-43.5); PTT-LA Mix 42.2 sec (0.0-40.5); dRVVT 40.8 sec (0.0-47.0)
[2023-12-11 21:07] LABS: Anti-MPO Antibodies <0.2 units (0.0-0.9); Anti-PR3 Antibodies <0.2 units (0.0-0.9); Cytoplasmic (C-ANCA) <1:20 titer (Neg:<1:20); Perinuclear (P-ANCA) <1:20 titer (Neg:<1:20)
== END 2023-12-08 09:00 | disposition home or self-care (01) ==
LOC: LAB 08:59
PROVIDERS: PCP Family Medicine
DX: M05.9 Rheumatoid arthritis with rheumatoid factor, unspecified (principal)
CPT/HCPCS: 36415; 82042; 82565; 82570; 83516; 84156; 84460; 85007; 85027; 85613; 85652; 85732; 86037; 86038; 86140; 86146; 86147; 86160; 86880

== ENCOUNTER 2023-12-22 07:31 | Outpatient (RCR) | payer MEDICARE, OTHER, SELFPAY ==
[2023-12-22 10:17] VITALS: BP 157/77; PULSE 62; RESP 18; TEMP 36.3; O2SAT 98
--- NOTE | 2023-12-22 10:19 | PC.NURSE ---
0955 Arrival ambulatory to chair 3. alert oriented, Patient relates to rash that started day after last orencia infusion, noted raised rash over both lower extremities, abd chest and back, states itches, patient stated she called her chair car driver and informed them that she broke out in this rash, they told her to go ahead and get infusion, scheduled her to see sign carpenter, but that appt is not for 2 months, patient states she sees chair car driver on . patient states this is not her normal psoriasis flare up, this is much worse. 1010 [facility] and spoke with staff informing them of this. also spoke with Dr. Frederick??sp. they will review her chart and call back [address] [facility] and spoke with patient. They will run this by Dr. Anderson and get back with us.
--- NOTE | 2023-12-22 13:23 | PC.NURSE ---
1040 Rheumatology called back and spoke with patient and said no further orencia treatments until seen by rheumatology and dermatology. patient released ambulatory
== END 2024-01-14 23:59 | disposition home or self-care (01) ==
LOC: INF 07:31
PROVIDERS: PCP Family Medicine
DX: M05.9 Rheumatoid arthritis with rheumatoid factor, unspecified (principal)

== ENCOUNTER 2024-02-13 13:02 | Outpatient (OUT) | payer MEDICARE, OTHER, SELFPAY ==
--- OUTSIDE RECORDS SUMMARY | 2024-02-13 13:25 | XMS_ITS | CCD ---
Author Organization [facility] Care Team Providers Care Human Resources Compliance Manager Name Role Phone Hussain Reese Good Unavailable Unavailable Unavailable DO Reese Nixon Primary Care Provider [phone] MD Marcin Patel Attending Provider DO Salty Gonzalez Attending Provider DO Salty Gonzalez Referring Provider MD Floresita Gonzalez Attending Provider [phone] DO Reese Nixon Primary Care Provider [phone] MD Marcin Patel Attending Provider DO Reese Nixon Primary Care Provider DO Salty Gonzalez Referring Provider MD Floresita Gonzalez Attending Provider [phone] RASHIDA, DR SADLER Attending Unavailable HALADAY, [...] Unavailable House, DO Leigh Primary Care Provider [phone] DO Salty Gonzalez Referring Provider [phone] MD Floresita Gonzalez Attending Provider [phone] Hussain, Dr. Reese Verduzco Primary [facility] Sheila Herrmann, Dr. Luke Lloyd Attending Sheila Herrmann, Dr. Luke Lloyd Referring Lisava dora Nixon, Dr. Reese Verduzco [facility] Sheila Herrmann, Dr. Luke Lloyd Attending DO Reese Martinez Primary Care Provider DO Salty Gonzalez Referring Provider MD Floresita Gonzalez Attending Provider [phone] [place] Reese KELLER Primary Care Provider LUKE HERRMANN Attending Unavailable HUSSAIN, REESE VERDUZCO Primary Care Unavailab le DO Reese Nixon Primary Care Provider DO Salty Gonzalez Referring Provider [phone] MD Floresita Gonzalez Attending Provider [phone] Floresita Gonzalez Admitting Unavailable Floresita Gonzalez Attending Unavailable Salty Gonzalez Referring Reese Muñoz Primary Care REESE Muñoz Primary Care Unavailable Ant Gregory MD Attending REESE Muñoz Primary Care Unavailable REESE NIXON Attending Unavailable REESE NIXON Primary Care Unavailable Ant Gregory MD Attending Unavailable Ant Gregory MD Attending Unavailable REESE [...] Atorvastatin Discontinued 80 MG PO Every evening August 27, 2021 12:00am December 14, 2021 [...] Daily Quantity: 45 Refills: 3 Ordered: 12-Oct-2021 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 Start : 12-Oct-2021 Active new start Completed/Discontinued [...] sources) Antirheumatic Agent Start: 08-23-20 End: 10-25-19 24 take 20 mg by mouth once daily Leflunomide Discontinued 20 MG PO Daily August 23, 2021 12:00am October 25, 2023 12:59pm letrozole 2.5 mg oral tablet (6 sources) Aromatase Inhibitor Start: 04-20-20 End: 08-01-20 23 take 2.5 mg by [...] (5 sources) Prophylactic aromatase inhibitors given; Translations: [technician terminal and repeater (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 aromatase inhibitors] 02-03-2022 Episodic Other aftercare (4 sources) snf (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 aromatase inhibitors; Translations: [Use of aromatase inhibitors] 10-13-2022 Episodic Other aftercare (1 source) Other technician terminal and repeater (current) drug therapy; Translations: [OTH SYSTEMS REQUIREMENTS PLANNER CURRENT DRUG THERAPY] Onset: 11-14-2022 Episodic Other [...] Test Name Value Interpretation Reference Range Facility Outside [facility] 01-22-2024 Outside Records [id number] [facility]24 Outside Records [id number] [facility] Other Radiology Report on 12-11-2023 Rad - Other Radiology Report [id number] [facility] diagnostic mammo BI w/CAD on 12-04-2023 MM diagnostic mammo BI w/CAD [facility] Main [place] [address] [place] [address] Mammography Report Signed Patient: Chucky Dunlap MR#: [id number] : 1955 Acct:[id number] Age/Sex: 67 / F ADM Date: 12/04/23 Loc: XT [facility]: [facility] Att[facility] Dr: Floresita Gonzalez MD Copies to: [...] Vito Thomas M.D.12/04/2023 2:47 PM Dictation Location: [facility] Transcribed By: ANIL 12/04/23 1447 Dictated By: Vito Thomas II, MD 12/04/23 1441 Signed By: 12/04/23 1447 [facility] Controlled Substances Agreem entson 11-01-2023 Controlled Substances Agreements [id number] 21#1.00[facility] 10-31-2023 Outside Records [id number] 841#1.00[facility] 10-04-2023 Outside Records [id number] 782#1.00[facility] 09-19-2023 Outside Records [id number] 875#1.00[facility] 08-30-2023 Outside Records [id number] 9#[address] [place] [address] Patient Provided Health Data on 08-03-2023 Patient Provided Health Data [id number] 46#[address] [place] [address] Patient Handouton 07-14-2023 Patient Handout [id number] 92#[address] [place] [address] CBC AUTO DIFFon 11-12-2022 BASO # 0.1 103/ul Normal 0.0-0.1 [facility] Comment on above: Performed By: #### C BC #### [facility] [address] [place] [address] Dr. Jessica Saravia Basophils/100 WBC (Bld) 1.4 % Normal 0.2-2.0 [facility] Comment on above: Performed By: #### C BC #### [facility] [address] [place] [address] Dr. Jessica Saravia EO # 0.4 103/ul Normal 0.0-0.7 [facility] Comment on above: Performed By: #### C BC #### [facility] [address] [place] [address] Dr. Jessica Saravia Eosinophils/100 WBC (Bld) 6.1 % Normal 0.9-7.0 [facility] Comment on above: Performed By: #### C BC #### [facility] [address] [place] [address] Dr. Jessica Saravia Erythrocyte distribution width (RBC) [Ratio] 14.9 % Normal 11.0-15.0 [facility] Comment on above: Performed By: #### C BC #### [facility] [address] [place] [address] Dr. Jessica Saravia Hematocrit (Bld) [Volume fraction] 34.7 % Critically low 36.0-48.0 [facility] Comment on above: Performed By: #### C BC #### [facility] [address] [place] [address] Dr. Jessica Saravia Hemoglobin (Bld) [Mass/Vol] 11.3 g/dL Critically low 12.0-16.0 [facility] Comment on above: Performed By: #### C BC #### [facility] [address] [place] [address] Dr. Jessica Saravia IG # 0.03 10e3/ul Normal 0.00-0.03 [facility] Comment on above: Performed By: #### C BC #### [facility] [address] [place] [address] Dr. Jessica Saravia IG % 0.4 % Normal 0.0-0.5 [facility] Comment on above: Performed By: #### C BC #### [facility] [address] [place] [address] Dr. Jessica Saravia LYMPH # 1.4 103/ul Normal 1.2-3.8 [facility] Comment on above: Performed By: #### C BC #### [facility] [address] [place] [address] Dr. Jessica Saravia Lymphocytes/100 WBC (Bld) 20.4 % Critically low 20.5-60.0 [facility] Comment on above: Performed By: #### C BC #### [facility] [address] [place] [address] Dr. Jessica Saravia MANUAL DIFF REQ NO Normal [facility] Comment on above: Performed By: #### C BC #### [facility] [address] [place] [address] Dr. Jessica Saravia MCH (RBC) [Entitic mass] 27.5 pg Normal 26.7-34.0 [facility] Comment on above: Performed By: #### C BC #### [facility] [address] [place] [address] Dr. Jessica Saravia MCHC (RBC) [Mass/Vol] 32.6 g/dL Normal 29.9-35.2 [facility] Comment on above: Performed By: #### C BC #### [facility] [address] [place] [address] Dr. Jessica Saravia MCV (RBC) [Entitic vol] 84.4 fL Normal 81.0-99.0 [facility] Comment on above: Performed By: #### C BC #### [facility] [address] [place] [address] Dr. Jessica Saravia MONO # 0.8 103/ul Normal 0.3-0.8 [facility] Comment on above: Performed By: #### C BC #### [facility] [address] [place] [address] Dr. Jessica Saravia Monocytes/100 WBC (Bld) 12.1 % Critically high 1.7-12. 0 [facility] Comment on above: Performed By: #### C BC #### [facility] [address] [place] [address] Dr. Jessica Saravia NEUT # 4.1 103/ul Normal 1.4-6.5 [facility] Comment on above: Performed By: #### C BC #### [facility] [address] [place] [address] Dr. Jessica Saravia Neutrophils/100 WBC (Bld) 59.6 % Normal 43.0-75.0 [facility] Comment on above: Performed By: #### C BC #### [facility] [address] [address] [address] Jessica Saravia Platelet mean volume (Bld) [Entitic vol] 11.0 fL Normal 9.5-13.5 [facility] Comment on above: Performed By: #### C BC #### [facility] [address] [address] [address] Jessica Saravia PLT 236 103/ul Normal 150-450 [facility] Comment on above: Performed By: #### C BC #### [facility] [address] [address] [address] Jessica Saravia RBC 4.11 106/ul Critically low 4.20-5.40 [facility] Comment on above: Performed By: #### C BC #### [facility] [address] [place] [address] Dr. Jessica Saravia WBC 6.9 103/ul Normal 4.0-11.0 [facility] Comment on above: Performed By: #### C BC #### [facility] [address] [address] [address] Jessica Saravia CREATININEon 11-12-2022 Creatinine [Mass/Vol] 0.85 mg/dL Normal 0.55-1.02 [facility] Comment on above: Performed By: #### L IVER #### [facility] [address] [place] [address] Dr. Jessica Saravia EGFR-AF ITALIAN >60 Normal >=60 [facility] Comment on above: Performed By: #### L IVER #### [facility] [address] [address] [address] Jessica Saravia EGFR-NON AF ITALIAN >60 Normal >=60 [facility] Comment on above: Performed By: #### L IVER #### [facility] [address] [place] [address] Dr. Jessica Saravia LIPID PROFILEon 11-12-2022 CHOL-HDL RATIO NORM SEE BELOW Normal [facility] Comment on above: Result Comment: 3.3 - 4.4 LOW RISK 4.4 - 7.1 AVERAGE RISK 7.1 - 11.0 MODERATE RISK >11.0 HIGH RISK Performed By: #### C BC #### [facility] [address] [place], [place] [address] Dr. Jessica Saravia Cholesterol [Mass/Vol] 171 mg/dL Normal <=200 [facility] Comment on above: Performed By: #### C BC #### [facility] [address] [place], [place] [address] Dr. Jessica Saravia Cholesterol in HDL [Mass/Vol] 33 mg/dL Critically low 40-60 [facility] Comment on above: Performed By: #### C BC #### [facility] [address] [address] [address] Jessica Saravia Cholesterol in LDL [Mass/Vol] 108.2 mg/dL Normal [facility] Comment on above: Performed By: #### C BC #### [facility] [address] [address] [address] Jessica Saravia Cholesterol.total/Cindy sterol in HDL [Mass ratio] 5.2 {ratio} Normal [facility] Comment on above: Performed By: #### C BC #### [facility] [address] [address] [address] Jessica Saravia HDL NORMAL > or = 60 mg/dl - LOW CARDIOVASCULAR RISK <40 mg/dl - HIGH CARDIOVASCULAR RISK Normal [facility] Comment on above: Performed By: #### C BC #### [facility] [address] [address] [address] Jessica Saravia LDL CALC NORMAL SEE BELOW Normal [facility] Comment on above: Result Comment: <100 mg/dl OPTIMAL 100 - 129 mg/dl NEAR OR ABOVE OPTIMAL 130 - 159 mg/dl BORDERLINE HIGH 160 - 189 mg/dl HIGH >190 mg/dl VERY HIGH Performed By: #### C BC #### [facility] [address] [address] [address] Jessica Saravia Triglyceride [Mass/Vol] 149 mg/dL Normal <=150 T [facility] Comment on above: Performed By: #### C BC #### [facility] [address] [address] [address] Jessica Saravia VLDL CALC 29.8 mg/dL Normal [facility] Comment on above: Performed By: #### C BC #### [facility] [address] [address] [address] Jessica Saravia LIVER PROFILEon 11-12-2022 Albumin [Mass/Vol] 2.8 g/dL Critically low 3.4-5.0 Th e [facility] Comment on above: Performed By: #### L IVER #### [facility] [address] [address] [address] Jessica Saravia Albumin/Globulin [Mass ratio] 0.7 {ratio} Normal [facility] Comment on above: Performed By: #### L IVER #### [facility] [address] [address] [address] Jessica Saravia ALP [Catalytic activity/Vol] 159 U/L Critically high 46-116 [facility] Comment on above: Performed By: #### L IVER #### [facility] [address] [place] [address] Dr. Jessica Saravia ALT [Catalytic activity/Vol] 37 U/L Normal 14-59 [facility] Comment on above: Performed By: #### L IVER #### [facility] [address] [place] [address] Dr. Jessica Saravia AST [Catalytic activity/Vol] 24 U/L Normal 15-37 [facility] Comment on above: Performed By: #### L IVER #### [facility] [address] [place] [address] Dr. Jessica Saravia BILI, CONJUGATED 0.1 mg/dL Normal 0.0-0.2 [facility] Comment on above: Performed By: #### L IVER #### [facility] [address] [address] [address] Jessica Saravia Bilirubin [Mass/Vol] 0.4 mg/dL Normal 0.2-1.0 [facility] Comment on above: Performed By: #### L IVER #### [facility] [address] [place] [address] Dr. Jessica Saravia Globulin (S) [Mass/Vol] 4.2 g/dL Normal [facility] Comment on above: Performed By: #### L IVER #### [facility] [address] [place], [place] [address] Dr. Jessica Saravia Protein [Mass/Vol] 7.0 g/dL Normal 6.4-8.2 [facility] Comment on above: Performed By: #### L IVER #### [facility] [address] [place], [place] [address] Dr. Jessica Saravia SED RATE WESTERGRENon 2022 SED RATE 80 mm/hr Critically high <=30 [facility] Comment on above: Performed By: #### C BC #### [facility] [address] [place], [place] [address] Dr. Jessica Saravia Tobacco Screening.on 023 Adult depression screening assessment No [facility] [employer] [facility] 250 DO Work Phone: Fall risk assessment a) No falls within the last year [facility] [employer] 250 DO Work Phone: Tobacco use status [facility] b) No [facility] 250 DO Work Phone: CT CHEST [...] Date: 2022-08-30 09:15 Normal [facility] CT CHEST WO CONon 2 CT CHEST WO CON Begin Addendum #1 [...] follow-up is recommended. Normal [facility] CBC AUTO DIFFon 06-16-2022 BASO # 0.1 103/ul Normal 0.0-0.1 [facility] Comment on above: Performed By: #### C BC #### [facility] [address] [address] [address] Jessica Saravia Basophils/100 WBC (Bld) 1.0 % Normal 0.2-2.0 [facility] Comment on above: Performed By: #### C BC #### [facility] [address] [address] [address] Jessica Saravia EO # 0.4 103/ul Normal 0.0-0.7 [facility] Comment on above: Performed By: #### C BC #### [facility] [address] [address] [address] Jessica Saravia Eosinophils/100 WBC (Bld) 5.1 % Normal 0.9-7.0 [facility] Comment on above: Performed By: #### C BC #### [facility] [address] [address] [address] Jessica Saravia Erythrocyte distribution width (RBC) [Ratio] 16.6 % Critically high 11.0-15.0 [facility] Comment on above: Performed By: #### C BC #### [facility] [address] [address] [address] Jessica Saravia Hematocrit (Bld) [Volume fraction] 34.1 % Critically low 36.0-48.0 [facility] Comment on above: Performed By: #### C BC #### [facility] [address] [address] [address] Jessica Saravia Hemoglobin (Bld) [Mass/Vol] 10.6 g/dL Critically low 12.0-16.0 [facility] Comment on above: Performed By: #### C BC #### [facility] [address] [address] [address] Jessica Saravia IG # 0.02 10e3/ul Normal 0.00-0.03 [facility] Comment on above: Performed By: #### C BC #### [facility] [address] [place] [address] Dr. Jessica Saravia IG % 0.3 % Normal 0.0-0.5 [facility] Comment on above: Performed By: #### C BC #### [facility] [address] [place] [address] Dr. Jessica Saravia LYMPH # 1.4 103/ul Normal 1.2-3.8 [facility] Comment on above: Performed By: #### C BC #### [facility] [address] [place] [address] Dr. Jessica Saravia Lymphocytes/100 WBC (Bld) 19.6 % Critically low 20.5-60.0 [facility] Comment on above: Performed By: #### C BC #### [facility] [address] [place] [address] Dr. Jessica Saravia MANUAL DIFF REQ NO Normal [facility] Comment on above: Performed By: #### C BC #### [facility] [address] [place] [address] Dr. Jessica Saravia MCH (RBC) [Entitic mass] 27.9 pg Normal 26.7-34.0 [facility] Comment on above: Performed By: #### C BC #### [facility] [address] [place] [address] Dr. Jessica Saravia MCHC (RBC) [Mass/Vol] 31.1 g/dL Normal 29.9-35.2 [facility] Comment on above: Performed By: #### C BC #### [facility] [address] [place] [address] Dr. Jessica Saravia MCV (RBC) [Entitic vol] 89.7 fL Normal 81.0-99.0 [facility] Comment on above: Performed By: #### C BC #### [facility] [address] [place] [address] Dr. Jessica Saravia MONO # 1.0 103/ul Critically high 0.3-0.8 [facility] Comment on above: Performed By: #### C BC #### [facility] [address] [place] [address] Dr. Jessica Saravia Monocytes/100 WBC (Bld) 14.2 % Critically high 1.7-12. 0 [facility] Comment on above: Performed By: #### C BC #### [facility] [address] [place] [address] Dr. Jessica Saravia NEUT # 4.3 103/ul Normal 1.4-6.5 [facility] Comment on above: Performed By: #### C BC #### [facility] [address] [place] [address] Dr. Jessica Saravia Neutrophils/100 WBC (Bld) 59.8 % Normal 43.0-75.0 [facility] Comment on above: Performed By: #### C BC #### [facility] [address] [place] [address] Dr. Jessica Saravia Platelet mean volume (Bld) [Entitic vol] 11.9 fL Normal 9.5-13.5 [facility] Comment on above: Performed By: #### C BC #### [facility] [address] [place] [address] Dr. Jessica Saravia PLT 235 103/ul Normal 150-450 [facility] Comment on above: Performed By: #### C BC #### [facility] [address] [place] [address] Dr. Jessica Saravia RBC 3.80 106/ul Critically low 4.20-5.40 [facility] Comment on above: Performed By: #### C BC #### [facility] [address] [place] [address] Dr. Jessica Saravia WBC 7.3 103/ul Normal 4.0-11.0 [facility] Comment on above: Performed By: #### C BC #### [facility] [address] [place] [address] Dr. Jessica Saravia CREATININEon 06-16-2022 Creatinine [Mass/Vol] 1.06 mg/dL Critically high 0.55-1.02 [facility] Comment on above: Performed By: #### L NATHANIEL CASTILLOA #### [facility] [address] [place] [address] Dr. Jessica Saravia EGFR-AF ITALIAN >60 Normal >=60 [facility] Comment on above: Performed By: #### L JONATHAN CREA #### [facility] [address] [address] [address] Jessica Saravia EGFR-NON AF ITALIAN 52 mL/min/1.73m2 Critically low >=60 [facility] Comment on above: Performed By: #### L JONATHAN CREA #### [facility] [address] [place] [address] Dr. Jessica Saravia LIVER PROFILEon 06-16-2022 Albumin [Mass/Vol] 2.8 g/dL Critically low 3.4-5.0 [facility] Comment on above: Performed By: #### L JONATHAN CREA #### [facility] [address] [place] [address] Dr. Jessica Saravia Albumin/Globulin [Mass ratio] 0.7 {ratio} Normal [facility] Comment on above: Performed By: #### L JONATHAN CREA #### [facility] [address] [place] [address] Dr. Jessica Saravia ALP [Catalytic activity/Vol] 112 U/L Normal 46-116 [facility] Comment on above: Performed By: #### L JONATHAN CREA #### [facility] [address] [place] [address] Dr. Jessica Saravia ALT [Catalytic activity/Vol] 19 U/L Normal 14-59 [facility] Comment on above: Performed By: #### L JONATHAN CREA #### [facility] [address] [place] [address] Dr. Jessica Saravia AST [Catalytic activity/Vol] 16 U/L Normal 15-37 [facility] Comment on above: Performed By: #### L JONATHAN CREA #### [facility] [address] [place] [address] Dr. Jessica Saravia BILI, CONJUGATED 0.1 mg/dL Normal 0.0-0.2 [facility] Comment on above: Performed By: #### L JONATHAN CREA #### [facility] [address] [address] [address] Jessica Saravia Bilirubin [Mass/Vol] 0.3 mg/dL Normal 0.2-1.0 [facility] Comment on above: Performed By: #### L JONATHAN CREA #### [facility] [address] [place] [address] Dr. Jessica Saravia Globulin (S) [Mass/Vol] 4.1 g/dL Normal T [facility] Comment on above: Performed By: #### L JONATHAN CREA #### [facility] [address] [place] [address] Dr. Jessica Saravia Protein [Mass/Vol] 6.9 g/dL Normal 6.4-8.2 [facility] Comment on above: Performed By: #### L NATHANIEL CASTILLOA #### [facility] [address] [place] [address] Dr. Jessica Saravia SED RATE WESTERGRENon 2021 SED RATE 82 mm/hr Critically high <=30 [facility] Comment on above: Performed By: #### S EDR #### [facility] [address] [place] [address] Dr. Jessica Saravia US SINGLE QUAD RT [...] Date: 2022-05-01 09:07 Normal The [facility] CBC AUTO DIFFon 03-21-2022 BASO # 0.1 103/ul Normal 0.0-0.1 [facility] Comment on above: Performed By: #### C BC #### [facility] [address] [place] [address] Dr. Jessica Saravia Basophils/100 WBC (Bld) 1.3 % Normal 0.2-2.0 [facility] Comment on above: Performed By: #### C BC #### [facility] [address] [place] [address] Dr. Jessica Saravia EO # 0.4 103/ul Normal 0.0-0.7 [facility] Comment on above: Performed By: #### C BC #### [facility] [address] [place] [address] Dr. Jessica Saravia Eosinophils/100 WBC (Bld) 5.4 % Normal 0.9-7.0 [facility] Comment on above: Performed By: #### C BC #### [facility] [address] [place] [address] Dr. Jessica Saravia Erythrocyte distribution width (RBC) [Ratio] 17.3 % Critically high 11.0-15.0 [facility] Comment on above: Performed By: #### C BC #### [facility] [address] [place] [address] Dr. Jessica Saravia Hematocrit (Bld) [Volume fraction] 36.4 % Normal 36.0-48.0 [facility] Comment on above: Performed By: #### C BC #### [facility] [address] [place] [address] Dr. Jessica Saravia Hemoglobin (Bld) [Mass/Vol] 10.5 g/dL Critically low 12.0-16.0 [facility] Comment on above: Performed By: #### C BC #### [facility] [address] [place] [address] Dr. Jessica Saravia IG # 0.02 10e3/ul Normal 0.00-0.03 [facility] Comment on above: Performed By: #### C BC #### [facility] [address] [place] [address] Dr. Jessica Saravia IG % 0.3 % Normal 0.0-0.5 [facility] Comment on above: Performed By: #### C BC #### [facility] [address] [place] [address] Dr. Jessica Saravia LYMPH # 1.2 103/ul Normal 1.2-3.8 [facility] Comment on above: Performed By: #### C BC #### [facility] [address] [place] [address] Dr. Jessica Saravia Lymphocytes/100 WBC (Bld) 16.3 % Critically low 20.5-60.0 [facility] Comment on above: Performed By: #### C BC #### [facility] [address] [place] [address] Dr. Jessica Saravia MANUAL DIFF REQ NO Normal [facility] Comment on above: Performed By: #### C BC #### [facility] [address] [place] [address] Dr. Jessica Saravia MCH (RBC) [Entitic mass] 25.1 pg Critically low 26.7-34.0 [facility] Comment on above: Performed By: #### C BC #### [facility] [address] [place] [address] Dr. Jessica Saravia MCHC (RBC) [Mass/Vol] 28.8 g/dL Critically low 29.9-35.2 [facility] Comment on above: Result Comment: hypo chromic Performed By: #### C BC #### [facility] [address] [place] [address] Dr. Jessica Saravia MCV (RBC) [Entitic vol] 87.1 fL Normal 81.0-99.0 [facility] Comment on above: Performed By: #### C BC #### [facility] [address] [place] [address] Dr. Jessica Saravia MONO # 0.9 103/ul Critically high 0.3-0.8 [facility] Comment on above: Performed By: #### C BC #### [facility] [address] [place] [address] Dr. Jessica Saravia Monocytes/100 WBC (Bld) 12.0 % Normal 1.7-12.0 [facility] Comment on above: Performed By: #### C BC #### [facility] [address] [place] [address] Dr. Jessica Saravia NEUT # 4.7 103/ul Normal 1.4-6.5 [facility] Comment on above: Performed By: #### C BC #### [facility] [address] [place] [address] Dr. Jessica Saravia Neutrophils/100 WBC (Bld) 64.7 % Normal 43.0-75.0 [facility] Comment on above: Performed By: #### C BC #### [facility] [address] [place] [address] Dr. Jessica Saravia Platelet mean volume (Bld) [Entitic vol] 12.3 fL Normal 9.5-13.5 [facility] Comment on above: Performed By: #### C BC #### [facility] [address] [place] [address] Dr. Jessica Saravia PLT 284 103/ul Normal 150-450 [facility] Comment on above: Performed By: #### C BC #### [facility] [address] [place] [address] Dr. Jessica Saravia RBC 4.18 106/ul Critically low 4.20-5.40 [facility] Comment on above: Performed By: #### C BC #### [facility] [address] [place] [address] Dr. Jessica Saravia WBC 7.2 103/ul Normal 4.0-11.0 [facility] Comment on above: Performed By: #### C BC #### [facility] [address] [place] [address] Dr. Jessica Saravia CREATININEon 03-21-2022 Creatinine [Mass/Vol] 1.05 mg/dL Critically high 0.55-1.02 [facility] Comment on above: Performed By: #### L IVER #### [facility] [address] [place] [address] Dr. Jessica Saravia EGFR-AF ITALIAN >60 Normal >=60 [facility] Comment on above: Performed By: #### L IVER #### [facility] [address] [address] [address] Jessica Saravia EGFR-NON AF ITALIAN 53 mL/min/1.73m2 Critically low >=60 [facility] Comment on above: Performed By: #### L IVER #### [facility] [address] [address] [address] Jessica Saravia LIVER PROFILEon 03-21-2022 Albumin [Mass/Vol] 2.9 g/dL Critically low 3.4-5.0 Th e [facility] Comment on above: Performed By: #### L IVER #### [facility] [address] [place] [address] Dr. Jessica Saravia Albumin/Globulin [Mass ratio] 0.7 {ratio} Normal [facility] Comment on above: Performed By: #### L IVER #### [facility] [address] [place] [address] Dr. Jessica Saravia ALP [Catalytic activity/Vol] 86 U/L Normal 46-116 [facility] Comment on above: Performed By: #### L IVER #### [facility] [address] [place] [address] Dr. Jessica Saravia ALT [Catalytic activity/Vol] 18 U/L Normal 14-59 [facility] Comment on above: Performed By: #### L IVER #### [facility] [address] [place] [address] Dr. Jessica Saravia AST [Catalytic activity/Vol] 13 U/L Critically low 15-37 [facility] Comment on above: Performed By: #### L IVER #### [facility] [address] [place] [address] Dr. Jessica Saravia BILI, CONJUGATED 0.1 mg/dL Normal 0.0-0.2 [facility] Comment on above: Performed By: #### L IVER #### [facility] [address] [place] [address] Dr. Jessica Saravia Bilirubin [Mass/Vol] 0.4 mg/dL Normal 0.2-1.0 [facility] Comment on above: Performed By: #### L IVER #### [facility] [address] [place], [place] [address] Dr. Jessica Saravia Globulin (S) [Mass/Vol] 4.1 g/dL Normal T [facility] Comment on above: Performed By: #### L IVER #### [facility] [address] [place], [place] [address] Dr. Jessica Saravia Protein [Mass/Vol] 7.0 g/dL Normal 6.4-8.2 [facility] Comment on above: Performed By: #### L IVER #### [facility] [address] [place], [place] [address] Dr. Jessica Saravia SED RATE [facility] 2021 SED RATE 92 mm/hr Critically high <=30 [facility] Comment on above: Performed By: #### L IVER #### [facility] [address] [address] [address] Jessica Saravia Activated partial thrombopla stin time (aPTT) in platelet poor plasma by coagulation aOrdered By: Marcin Patel on 03-01-2022 aPTT Coag (PPP) [Time] 31.7 s 25.1-36.5 [facility] - CoagulationOrde red By: Marcin Patel on 03-01-2022 PT Coag (PPP) [Time] 13.1 s 9.0-12.9 [facility] Platelet poor plasma interna tional normalized ratio (INR) by coagulation assay (relatOrdered By: Marcin Patel on 03-01-2022 INR Coag (PPP) [Relative time] 1.2 {INR} [facility] Comment on above: INR Therapeutic Rang e [...] 03-01-2022 Platelets (Bld) [#/Vol] 188 10*3/uL 150-450 [facility] Glucose Glucometer (BldC) [M ass/Vol]Ordered By: Floresita Carlos on 02-07-2022 Glucose [Mass/Vol] 153 mg/dL [facility] Comment on above: Random Glucose Refer ence Range is dependent on time and content of last meal. Glucose of more than 200 mg/dL in a nonstressed, ambulatory subject supports the diagnosis of Diabetes Mellitus. No Panel InformationOrdered By: Floresita Gonzalez on 02-07-2022 Bedside Glucose Comment Glu2: cleaned meter [facility] CBC AUTO DIFFon 01-26-2022 BASO # 0.1 103/ul Normal 0.0-0.1 [facility] Comment on above: Performed By: #### C BC #### [facility] [address] [address] [address] Jessica Saravia Basophils/100 WBC (Bld) 1.3 % Normal 0.2-2.0 [facility] Comment on above: Performed By: #### C BC #### [facility] [address] [address] [address] Jessica Saravia EO # 0.4 103/ul Normal 0.0-0.7 [facility] Comment on above: Performed By: #### C BC #### [facility] [address] [address] [address] Jessica Saravia Eosinophils/100 WBC (Bld) 4.6 % Normal 0.9-7.0 [facility] Comment on above: Performed By: #### C BC #### [facility] [address] [address] [address] Jessica Saravia Erythrocyte distribution width (RBC) [Ratio] 18.3 % Critically high 11.0-15.0 [facility] Comment on above: Performed By: #### C BC #### [facility] [address] [address] [address] Jessica Saravia Hematocrit (Bld) [Volume fraction] 28.7 % Critically low 36.0-48.0 [facility] Comment on above: Performed By: #### C BC #### [facility] [address] [address] [address] Jessica Saravia Hemoglobin (Bld) [Mass/Vol] 8.3 g/dL Critically low 12.0-16.0 [facility] Comment on above: Performed By: #### C BC #### [facility] [address] [address] [address] Jessica Saravia IG # 0.12 10e3/ul Critically high 0.00-0.03 [facility] Comment on above: Performed By: #### C BC #### [facility] [address] [address] [address] Jessica Saravia IG % 1.6 % Critically high 0.0-0.5 [facility] Comment on above: Performed By: #### C BC #### [facility] [address] [place] [address] Dr. Jessica Saravia LYMPH # 1.4 103/ul Normal 1.2-3.8 [facility] Comment on above: Performed By: #### C BC #### [facility] [address] [place] [address] Dr. Jessica Saravia Lymphocytes/100 WBC (Bld) 18.3 % Critically low 20.5-60.0 [facility] Comment on above: Performed By: #### C BC #### [facility] [address] [place] [address] Dr. Jessica Saravia MANUAL DIFF REQ NO Normal [facility] Comment on above: Performed By: #### C BC #### [facility] [address] [address] [address] Jessica Saravia MCH (RBC) [Entitic mass] 26.4 pg Critically low 26.7-34.0 [facility] Comment on above: Performed By: #### C BC #### [facility] [address] [place] [address] Dr. Jessica Saravia MCHC (RBC) [Mass/Vol] 28.9 g/dL Critically low 29.9-35.2 [facility] Comment on above: Performed By: #### C BC #### [facility] [address] [address] [address] Jessica Saravia MCV (RBC) [Entitic vol] 91.4 fL Normal 81.0-99.0 [facility] Comment on above: Performed By: #### C BC #### [facility] [address] [place] [address] Dr. Jessica Saravia MONO # 1.0 103/ul Critically high 0.3-0.8 [facility] Comment on above: Performed By: #### C BC #### [facility] [address] [place] [address] Dr. Jessica Saravia Monocytes/100 WBC (Bld) 12.6 % Critically high 1.7-12. 0 [facility] Comment on above: Performed By: #### C BC #### [facility] [address] [place] [address] Dr. Jessica Saravia NEUT # 4.6 103/ul Normal 1.4-6.5 [facility] Comment on above: Performed By: #### C BC #### [facility] [address] [place] [address] Dr. Jessica Saravia Neutrophils/100 WBC (Bld) 61.6 % Normal 43.0-75.0 [facility] Comment on above: Performed By: #### C BC #### [facility] [address] [place] [address] Dr. Jessica Saravia Platelet mean volume (Bld) [Entitic vol] 12.4 fL Normal 9.5-13.5 [facility] Comment on above: Performed By: #### C BC #### [facility] [address] [place] [address] Dr. Jessica Saravia PLT 247 103/ul Normal 150-450 [facility] Comment on above: Performed By: #### C BC #### [facility] [address] [place] [address] Dr. Jessica Saravia RBC 3.14 106/ul Critically low 4.20-5.40 [facility] Comment on above: Performed By: #### C BC #### [facility] [address] [place] [address] Dr. Jessica Saravia WBC 7.5 103/ul Normal 4.0-11.0 [facility] Comment on above: Performed By: #### C BC #### [facility] [address] [place] [address] Dr. Jessica Saravia CREATININEon 01-26-2022 Creatinine [Mass/Vol] 0.88 mg/dL Normal 0.52-1.04 [facility] Comment on above: Performed By: #### C BC #### [facility] [address] [place] [address] Dr. Jessica Saravia EGFR-AF ITALIAN >60 Normal >=60 [facility] Comment on above: Performed By: #### C BC #### [facility] [address] [place] [address] Dr. Jessica Saravia EGFR-NON AF ITALIAN >60 Normal >=60 [facility] Comment on above: Performed By: #### C BC #### [facility] [address] [place] [address] Dr. Jessica Saravia LIVER PROFILEon 01-26-2022 Albumin [Mass/Vol] 2.7 g/dL Critically low 3.4-5.0 [facility] Comment on above: Performed By: #### C BC #### [facility] [address] [place] [address] Dr. Jessica Saravia Albumin/Globulin [Mass ratio] 0.7 {ratio} Normal [facility] Comment on above: Performed By: #### C BC #### [facility] [address] [place] [address] Dr. Jessica Saravia ALP [Catalytic activity/Vol] 82 U/L Normal 46-116 [facility] Comment on above: Performed By: #### C BC #### [facility] [address] [place] [address] Dr. Jessica Saravia ALT [Catalytic activity/Vol] 16 U/L Normal 14-59 [facility] Comment on above: Performed By: #### C BC #### [facility] [address] [place] [address] Dr. Jessica Saravia AST [Catalytic activity/Vol] 19 U/L Normal 15-37 [facility] Comment on above: Performed By: #### C BC #### [facility] [address] [address] [address] Jessica Saravia BILI, CONJUGATED 0.1 mg/dL Normal 0.0-0.3 [facility] Comment on above: Performed By: #### C BC #### [facility] [address] [address] [address] Jessica Saravia Bilirubin [Mass/Vol] 0.4 mg/dL Normal 0.2-1.3 [facility] Comment on above: Performed By: #### C BC #### [facility] [address] [place] [address] Dr. Jessica Saravia Globulin (S) [Mass/Vol] 4.0 g/dL Normal T [facility] Comment on above: Performed By: #### C BC #### [facility] [address] [address] [address] Jessica Saravia Protein [Mass/Vol] 6.7 g/dL Normal 6.1-8.2 [facility] Comment on above: Performed By: #### C BC #### [facility] [address] [address] [address] Jessica Saravia SED RATE WESTERGRENon 2021 SED RATE 97 mm/hr Critically high <=30 [facility] Comment on above: Performed By: #### C BC #### [facility] [address] [address] [address] Jessica Saravia URIC ACID SERUMon 01-26-2022 Urate [Mass/Vol] 4.4 mg/dL Normal 2.5-6.2 [facility] Comment on above: Performed By: #### C BC #### [facility] [address] [place] [address] Dr. Jessica Saravia Amphetamine Screen Ql (U)Ord ered By: Ferdinand Garcia on 12-28-2021 Amphetamines Ql (U) Negative Negative [facility] Barbiturates [Presence] in U rineOrdered By: Ferdinand Garcia on 12-28-2021 Barbiturates Ql (U) Negative Negative [facility] Benzodiazepines [Presence] i n UrineOrdered By: Ferdinand Garcia on 12-28-2021 Benzodiazepines Ql (U) Negative Negative [facility] Cannabinoids [Presence] in U rine by Screen methodOrdered By: Ferdinand Garcia on 12-28-2021 Cannabinoids Screen Ql (U) Positive Negative [facility] Comment on above: These are unconfirme d results and should not be used for legal purposes. Drug Cut-Off Concentration: AMPH 1000 ng/mL DARIANA 200 ng/mL AURY 200 ng/mL COCM 300 ng/mL OP 300 ng/mL PCP 25 ng/mL THC 20 ng/mL Glucose Glucometer (BldC) [M ass/Vol]Ordered By: Salty Gonzalez on 12-28-2021 Glucose [Mass/Vol] 154 mg/dL [facility] Comment on above: Random Glucose Refer ence Range is dependent on time and content of last meal. Glucose of more than 200 mg/dL in a nonstressed, ambulatory subject supports the diagnosis of Diabetes Mellitus. Laboratory - Drug toxicology Ordered By: Ferdinand Garcia on 12-28-2021 Opiates Ql (U) Negative Negative [facility] Phencyclidine Screen Ql (U)O rdered By: Ferdinand Garcia on 12-28-2021 Phencyclidine Ql (U) Negative Negative [facility] Urine cocaine detectionOrder ed By: Ferdinand Garcia on 12-28-2021 Cocaine Ql (U) Negative Negative [facility] CBC AUTO DIFFon 12-27-2021 BASO # 0.1 103/ul Normal 0.0-0.1 [facility] Comment on above: Performed By: #### C BC #### [facility] [address] [address] [address] Jessica Saravia Basophils/100 WBC (Bld) 1.0 % Normal 0.2-2.0 [facility] Comment on above: Performed By: #### C BC #### [facility] [address] [place], [place] [address] Dr. Jessica Saravia EO # 0.3 103/ul Normal 0.0-0.7 [facility] Comment on above: Performed By: #### C BC #### [facility] [address] [place] [address] Dr. Jessica Saravia Eosinophils/100 WBC (Bld) 3.2 % Normal 0.9-7.0 [facility] Comment on above: Performed By: #### C BC #### [facility] [address] [place] [address] Dr. Jessica Saravia Erythrocyte distribution width (RBC) [Ratio] 16.8 % Critically high 11.0-15.0 [facility] Comment on above: Performed By: #### C BC #### [facility] [address] [place] [address] Dr. Jessica Saravia Hematocrit (Bld) [Volume fraction] 31.4 % Critically low 36.0-48.0 [facility] Comment on above: Performed By: #### C BC #### [facility] [address] [place] [address] Dr. Jessica Saravia Hemoglobin (Bld) [Mass/Vol] 9.5 g/dL Critically low 12.0-16.0 [facility] Comment on above: Performed By: #### C BC #### [facility] [address] [place] [address] Dr. Jessica Saravia IG # 0.02 10e3/ul Normal 0.00-0.03 [facility] Comment on above: Performed By: #### C BC #### [facility] [address] [place] [address] Dr. Jessica Saravia IG % 0.2 % Normal 0.0-0.5 [facility] Comment on above: Performed By: #### C BC #### [facility] [address] [place] [address] Dr. Jessica Saravia LYMPH # 2.2 103/ul Normal 1.2-3.8 [facility] Comment on above: Performed By: #### C BC #### [facility] [address] [place] [address] Dr. Jessica Saravia Lymphocytes/100 WBC (Bld) 26.5 % Normal 20.5-60.0 [facility] Comment on above: Performed By: #### C BC #### [facility] [facility] [address] [place] [address] Dr. Jessica Saravia MANUAL DIFF REQ NO Normal [facility] Comment on above: Performed By: #### C BC #### [facility] [address] [place] [address] Dr. Jessica Saravia MCH (RBC) [Entitic mass] 26.0 pg Critically low 26.7-34.0 [facility] Comment on above: Performed By: #### C BC #### [facility] [address] [place] [address] Dr. Jessica Saravia MCHC (RBC) [Mass/Vol] 30.3 g/dL Normal 29.9-35.2 [facility] Comment on above: Performed By: #### C BC #### [facility] [address] [place] [address] Dr. Jessica Saravia MCV (RBC) [Entitic vol] 86.0 fL Normal 81.0-99.0 [facility] Comment on above: Performed By: #### C BC #### [facility] [address] [place] [address] Dr. Jessica Saravia MONO # 0.9 103/ul Critically high 0.3-0.8 [facility] Comment on above: Performed By: #### C BC #### [facility] [address] [place] [address] Dr. Jessica Saravia Monocytes/100 WBC (Bld) 10.7 % Normal 1.7-12.0 [facility] Comment on above: Performed By: #### C BC #### [facility] [address] [place] [address] Dr. Jessica Saravia NEUT # 4.8 103/ul Normal 1.4-6.5 [facility] Comment on above: Performed By: #### C BC #### [facility] [address] [place] [address] Dr. Jessica Saravia Neutrophils/100 WBC (Bld) 58.4 % Normal 43.0-75.0 [facility] Comment on above: Performed By: #### C BC #### [facility] [address] [address] [address] Jessica Saravia Platelet mean volume (Bld) [Entitic vol] 11.5 fL Normal 9.5-13.5 [facility] Comment on above: Performed By: #### C BC #### [facility] [address] [address] [address] Jessica Saravia PLT 263 103/ul Normal 150-450 [facility] Comment on above: Performed By: #### C BC #### [facility] [address] [address] [address] Jessica Saravia RBC 3.65 106/ul Critically low 4.20-5.40 [facility] Comment on above: Performed By: #### C BC #### [facility] [address] [place] [address] Dr. Jessica Saravia WBC 8.2 103/ul Normal 4.0-11.0 [facility] Comment on above: Performed By: #### C BC #### [facility] [address] [place] [address] Dr. Jessica Saravia LIPID PROFILEon 12-27-2021 CHOL-HDL RATIO NORM SEE BELOW Normal [facility] Comment on above: Result Comment: 3.3 - 4.4 LOW RISK 4.4 - 7.1 AVERAGE RISK 7.1 - 11.0 MODERATE RISK >11.0 HIGH RISK Performed By: #### C BC #### [facility] [address] [place] [address] Dr. Jessica Saravia Cholesterol [Mass/Vol] 130 mg/dL Normal <=200 [facility] Comment on above: Performed By: #### C BC #### [facility] [address] [place] [address] Dr. Jessica Saravia Cholesterol in HDL [Mass/Vol] 27 mg/dL Normal [facility] Comment on above: Performed By: #### C BC #### [facility] [address] [address] [address] Jessica Saravia Cholesterol in LDL [Mass/Vol] 68.6 mg/dL Normal [facility] Comment on above: Performed By: #### C BC #### [facility] [address] [address] [address] Jessica Saravia Cholesterol.total/Cindy sterol in HDL [Mass ratio] 4.8 {ratio} Normal [facility] Comment on above: Performed By: #### C BC #### [facility] [address] [address] [address] Jessica Saravia HDL NORMAL > or = 60 mg/dl - LOW CARDIOVASCULAR RISK <40 mg/dl - HIGH CARDIOVASCULAR RISK Normal [facility] Comment on above: Performed By: #### C BC #### [facility] [address] [address] [address] Jessica Saravia LDL CALC NORMAL SEE BELOW Normal [facility] Comment on above: Result Comment: <100 mg/dl OPTIMAL 100 - 129 mg/dl NEAR OR ABOVE OPTIMAL 130 - 159 mg/dl BORDERLINE HIGH 160 - 189 mg/dl HIGH >190 mg/dl VERY HIGH Performed By: #### C BC #### [facility] [address] [place] [address] Dr. Jessica Saravia Triglyceride [Mass/Vol] 172 mg/dL Critically high <=150 [facility] Comment on above: Performed By: #### C BC #### [facility] [address] [place] [address] Dr. Jessica Saravia VLDL CALC 34.4 mg/dL Normal [facility] Comment on above: Performed By: #### C BC #### [facility] [address] [address] [address] Jessica Saravia LIVER PROFILEon 12-27-2021 Albumin [Mass/Vol] 2.5 g/dL Critically low 3.5-5.0 [facility] Comment on above: Performed By: #### L IVER #### [facility] [address] [place] [address] Dr. Jessica Saravia Albumin/Globulin [Mass ratio] 0.6 {ratio} Normal [facility] Comment on above: Performed By: #### L IVER #### [facility] [address] [place] [address] Dr. Jessica Saravia ALP [Catalytic activity/Vol] 80 U/L Normal 38-126 [facility] Comment on above: Performed By: #### L IVER #### [facility] [address] [address] [address] Jessica Saravia ALT [Catalytic activity/Vol] 16 U/L Normal 9-52 [facility] Comment on above: Performed By: #### L IVER #### [facility] [address] [address] [address] Jessica Saravia AST [Catalytic activity/Vol] 9 U/L Critically low 14-36 [facility] Comment on above: Performed By: #### L IVER #### [facility] [address] [address] [address] Jessica Saravia BILI, CONJUGATED 0.1 mg/dL Normal 0.0-0.3 [facility] Comment on above: Performed By: #### L IVER #### [facility] [address] [address] [address] Jessica Saravia Bilirubin [Mass/Vol] 0.3 mg/dL Normal 0.2-1.3 [facility] Comment on above: Performed By: #### L IVER #### [facility] [address] [address] [address] Jessica Saravia Globulin (S) [Mass/Vol] 4.1 g/dL Normal T [facility] Comment on above: Performed By: #### L IVER #### [facility] [address] [address] [address] Jessica Saravia Protein [Mass/Vol] 6.6 g/dL Normal 6.1-8.2 [facility] Comment on above: Performed By: #### L IVER #### [facility] [address] [place] [address] Dr. Jessica Saravia PROF CHEM 8 (BAS METB)on Anion gap [Moles/Vol] 11.6 mmol/L Normal [facility] Comment on above: Performed By: #### C BC #### [facility] [address] [address] [address] Jessica Saravia Calcium [Mass/Vol] 8.2 mg/dL Critically low 8.4-10.2 [facility] Comment on above: Performed By: #### C BC #### [facility] [address] [place] [address] Dr. Jessica Saravia Chloride [Moles/Vol] 103 mmol/L Normal 98-107 [facility] Comment on above: Performed By: #### C BC #### [facility] [address] [place] [address] Dr. Jessica Saravia CO2 [Moles/Vol] 30.0 mmol/L Normal 22.0-30.0 [facility] Comment on above: Performed By: #### C BC #### [facility] [address] [place] [address] Dr. Jessica Saravia Creatinine [Mass/Vol] 1.05 mg/dL Critically high 0.52-1.04 [facility] Comment on above: Performed By: #### C BC #### [facility] [address] [place] [address] Dr. Jessica Saravia EGFR-AF ITALIAN >60 Normal >=60 [facility] Comment on above: Performed By: #### C BC #### [facility] [address] [place] [address] Dr. Jessica Saravia EGFR-NON AF ITALIAN 53 mL/min/1.73m2 Critically low >=60 [facility] Comment on above: Performed By: #### C BC #### [facility] [address] [address] [address] Jessica Saravia Glucose [Mass/Vol] 214 mg/dL Critically high 74-106 T [facility] Comment on above: Performed By: #### C BC #### [facility] [address] [place] [address] Dr. Jessica Saravia Potassium [Moles/Vol] 3.6 mmol/L Normal 3.4-5.0 [facility] Comment on above: Performed By: #### C BC #### [facility] [address] [place] [address] Dr. Jessica Saravia Sodium [Moles/Vol] 141 mmol/L Normal 137-145 [facility] Comment on above: Performed By: #### C BC #### [facility] [address] [address] [address] Jessica Saravia Urea nitrogen [Mass/Vol] 9.0 mg/dL Normal 7.0-17.0 [facility] Comment on above: Performed By: #### C BC #### [facility] [address] [address] [address] Jessica Saravia Urea nitrogen/Creatinine [Mass ratio] 8.6 mg/mg Normal [facility] Comment on above: Performed By: #### C BC #### [facility] [address] [address] [address] Jessica Saravia SED RATE [facility] 2021 SED RATE 80 mm/hr Critically high <=30 [facility] Comment on above: Performed By: #### S EDR #### [facility] [address] [address] [address] Jessica Saravia COVID-19 Positive/NegativeOr dered By: Salty Gonzalez on 12-24-2021 SARS-CoV-2 (COVID-19) N gene AMA+probe Ql (Resp) Negative Negative [facility] Comment on above: Testing for SARS-CoV -2 by RT-PCRThis test was developed and its performance characteristics determined by [employer] ([place]) and validated at the [facility]. This test has not been FDA cleared [...] 12-14-2021 Basophils (Bld) [#/Vol] 0.1 10*3/uL 0.0-0.2 [facility] Basophils/100 WBC Auto (Bld) Ordered By: Salty Gonzalez on 12-14-2021 Basophils/100 WBC (Bld) 1.5 % [facility] Blood hemoglobin measurement (mass/volume)Ordered By: Salty Gonzalez on 12-14-2021 Hemoglobin (Bld) [Mass/Vol] 10.7 g/dL 11.8-15.4 [facility] Blood leukocytes automated c ount (number/volume)Ordered By: Salty Gonzalez on 12-14-2021 WBC (Bld) [#/Vol] 7.2 10*3/uL 4.5-11.0 [facility] Creatinine and Glomerular fi ltration rate.predicted panel (S/P/Bld)Ordered By: Salty Gonzalez on 12-14-2021 Creatinine [Mass/Vol] 0.98 mg/dL 0.44-1.03 [facility] Eosinophils Auto (Bld) [#/Vo l]Ordered By: Salty Gonzalez on 12-14-2021 Eosinophils (Bld) [#/Vol] 0.4 10*3/uL 0.0-0.45 [facility] Eosinophils/100 WBC Auto (Bl d)Ordered By: Salty Gonzalez on 12-14-2021 Eosinophils/100 WBC (Bld) 5.5 % [facility] Erythrocyte distribution wid th Auto (RBC) [Ratio]Ordered By: Salty Gonzalez on 12-14-2021 Erythrocyte distribution width (RBC) [Ratio] 17.4 % 11.9-15.3 [facility] Estimated glomerular filtrat ion rate (GFR) non- AmericanOrdered By: Salty Gonzalez on 12-14-2021 GFR/1.73 sq M.predicted among non-blacks MDRD (S/P/Bld) [Vol rate/Area] 57 mL/Min [facility] Hematocrit Auto (Bld) [Volum e fraction]Ordered By: Salty Gonzalez on 12-14-2021 Hematocrit (Bld) [Volume fraction] 33.6 % 34.0-46.4 [facility] Laboratory - Hematology and Cell countsOrdered By: Salty Gonzalez on 12-14-2021 Nucleated RBC/100 WBC (Bld) [Ratio] 0.1 % 0-0.5 [facility] Lymphocytes Auto (Bld) [#/Vo l]Ordered By: Salty Gonzalez on 12-14-2021 Lymphocytes (Bld) [#/Vol] 1.4 10*3/uL 1.00-4.8 [facility] Lymphocytes/100 WBC Auto (Bl d)Ordered By: Salty Gonzalez on 12-14-2021 Lymphocytes/100 WBC (Bld) 19.0 % [facility] MCH Auto (RBC) [Entitic mass ]Ordered By: Salty Gonzalez on 12-14-2021 MCH (RBC) [Entitic mass] 26.7 pg 24.7-34.3 [facility] MCHC Auto (RBC) [Mass/Vol]Or dered By: Salty Gonzalez on 12-14-2021 MCHC (RBC) [Mass/Vol] 31.9 g/dL 32.0-35.0 [facility] MCV Auto (RBC) [Entitic vol] Ordered By: Salty Gonzalez on 12-14-2021 MCV (RBC) [Entitic vol] 83.5 fL 80-100 [facility] Monocytes Auto (Bld) [#/Vol] Ordered By: Salty Gonzalez on 12-14-2021 Monocytes (Bld) [#/Vol] 0.8 10*3/uL 0.0-0.8 [facility] Monocytes/100 WBC Auto (Bld) Ordered By: Salty Gonzalez on 12-14-2021 Monocytes/100 WBC (Bld) 11.0 % [facility] Neutrophils Auto (Bld) [#/Vo l]Ordered By: Salty Gonzalez on 12-14-2021 Neutrophils (Bld) [#/Vol] 4.5 10*3/uL 1.8-7.7 [facility] Neutrophils/100 WBC Auto (Bl d)Ordered By: Salty Gonzalez on 12-14-2021 Neutrophils/100 WBC (Bld) 63.0 % [facility] No Panel InformationOrdered By: Salty Gonzalez on 12-14-2021 Estimated GFR () > 60 mL/Min [facility] Comment on above: GFR estimated refere nce range: According to KDOQI guidelines, <60 ml/min/1.73m2 is sufficient to diagnose a patient with chronic kidney disease. Pharmacy Creatinine Clearance (Chem N/A [facility] Platelet mean volume Auto (B ld) [Entitic vol]Ordered By: Salty Gonzalez on 12-14-2021 Platelet mean volume (Bld) [Entitic vol] 10.1 fL 6.3-10.7 [facility] Platelets Auto (Bld) [#/Vol] Ordered By: Salty Gonzalez on 12-14-2021 Platelets (Bld) [#/Vol] 245 10*3/uL 150-450 [facility] RBC Auto (Bld) [#/Vol]Ordere d By: Salty Gonzalez on 12-14-2021 RBC (Bld) [#/Vol] 4.02 10*6/uL 3.60-5.00 [facility] Serum or plasma calcium kell urement (mass/volume)Ordered By: Salty Gonzalez on 12-14-2021 Calcium [Mass/Vol] 10.0 mg/dL 8.2-10.2 [facility] Serum or plasma chloride jennifer surement (moles/volume)Ordered By: Salty Gonzalez on 12-14-2021 Chloride [Moles/Vol] 102 mmol/L 95-114 [facility] Serum or plasma glucose kell urement (mass/volume)Ordered By: Salty Gonzalez on 12-14-2021 Glucose [Mass/Vol] 226 mg/dL 70-100 [facility] Comment on above: ADA recommended refe rence rangeRandom Glucose Reference Range is dependent on time and content of last meal. Glucose of more than 200 mg/dL in a nonstressed, ambulatory subject supports the diagnosis of Diabetes Mellitus. Serum or plasma potassium me asurement (moles/volume)Ordered By: Salty Gonzalez on 12-14-2021 Potassium [Moles/Vol] 3.9 mmol/L 3.5-5.1 [facility] Serum or plasma sodium measu rement (moles/volume)Ordered By: Salty Gonzalez on 12-14-2021 Sodium [Moles/Vol] 136 mmol/L 136-146 [facility] Serum or plasma total carbon dioxide measurement (moles/volume)Ordered By: Salty Gonzalez on 12-14-2021 CO2 [Moles/Vol] 24.5 mmol/L 22.0-30.0 [facility] Serum or plasma urea nitroge n measurement (mass/volume)Ordered By: Salty Gonzalez on 12-14-2021 Urea nitrogen [Mass/Vol] 9 mg/dL 07-08 [facility] CBC AUTO DIFFon 12-08-2021 BASO # 0.1 103/ul Normal 0.0-0.1 [facility] Comment on above: Performed By: #### L IVER #### [facility] [address] [address] [address] Jessica Saravia Basophils/100 WBC (Bld) 1.1 % Normal 0.2-2.0 [facility] Comment on above: Performed By: #### L IVER #### [facility] [address] [address] [address] Jessica Saravia EO # 0.4 103/ul Normal 0.0-0.7 [facility] Comment on above: Performed By: #### L IVER #### [facility] [address] [address] [address] Jessica Saravia Eosinophils/100 WBC (Bld) 4.1 % Normal 0.9-7.0 [facility] Comment on above: Performed By: #### L IVER #### [facility] [address] [place] [address] Dr. Jessica Saravia Erythrocyte distribution width (RBC) [Ratio] 16.8 % Critically high 11.0-15.0 [facility] Comment on above: Performed By: #### L IVER #### [facility] [address] [place] [address] Dr. Jessica Saravia Hematocrit (Bld) [Volume fraction] 37.1 % Normal 36.0-48.0 [facility] Comment on above: Performed By: #### L IVER #### [facility] [address] [place] [address] Dr. Jessica Saravia Hemoglobin (Bld) [Mass/Vol] 11.0 g/dL Critically low 12.0-16.0 [facility] Comment on above: Performed By: #### L IVER #### [facility] [address] [place] [address] Dr. Jessica Saravia IG # 0.02 10e3/ul Normal 0.00-0.03 [facility] Comment on above: Performed By: #### L IVER #### [facility] [address] [place] [address] Dr. Jessica Saravia IG % 0.2 % Normal 0.0-0.5 [facility] Comment on above: Performed By: #### L IVER #### [facility] [address] [place] [address] Dr. Jessica Saravia LYMPH # 1.5 103/ul Normal 1.2-3.8 [facility] Comment on above: Performed By: #### L IVER #### [facility] [address] [place] [address] Dr. Jessica Saravia Lymphocytes/100 WBC (Bld) 16.2 % Critically low 20.5-60.0 [facility] Comment on above: Performed By: #### L IVER #### [facility] [address] [place] [address] Dr. Jessica Saravia MANUAL DIFF REQ NO Normal [facility] Comment on above: Performed By: #### L IVER #### [facility] [address] [place] [address] Dr. Jessica Saravia MCH (RBC) [Entitic mass] 26.4 pg Critically low 26.7-34.0 [facility] Comment on above: Performed By: #### L IVER #### [facility] [address] [place] [address] Dr. Jessica Saravia MCHC (RBC) [Mass/Vol] 29.6 g/dL Critically low 29.9-35.2 [facility] Comment on above: Performed By: #### L IVER #### [facility] [address] [place] [address] Dr. Jessica Saravia MCV (RBC) [Entitic vol] 89.0 fL Normal 81.0-99.0 [facility] Comment on above: Performed By: #### L IVER #### [facility] [address] [place] [address] Dr. Jessica Saravia MONO # 0.8 103/ul Normal 0.3-0.8 [facility] Comment on above: Performed By: #### L IVER #### [facility] [address] [place] [address] Dr. Jessica Saravia Monocytes/100 WBC (Bld) 8.6 % Normal 1.7-12.0 [facility] Comment on above: Performed By: #### L IVER #### [facility] [address] [place] [address] Dr. Jessica Saravia NEUT # 6.3 103/ul Normal 1.4-6.5 [facility] Comment on above: Performed By: #### L IVER #### [facility] [address] [place] [address] Dr. Jessica Saravia Neutrophils/100 WBC (Bld) 69.8 % Normal 43.0-75.0 [facility] Comment on above: Performed By: #### L IVER #### [facility] [address] [place] [address] Dr. Jessica Saravia Platelet mean volume (Bld) [Entitic vol] 11.9 fL Normal 9.5-13.5 [facility] Comment on above: Performed By: #### L IVER #### [facility] [address] [place] [address] Dr. Jessica Saravia PLT 253 103/ul Normal 150-450 [facility] Comment on above: Performed By: #### L IVER #### [facility] [address] [place] [address] Dr. Jessica Saravia RBC 4.17 106/ul Critically low 4.20-5.40 [facility] Comment on above: Performed By: #### L IVER #### [facility] [address] [place] [address] Dr. Jessica Saravia WBC 9.0 103/ul Normal 4.0-11.0 [facility] Comment on above: Performed By: #### L IVER #### [facility] [address] [place] [address] Dr. Jessica Saravia CREATININEon 12-08-2021 Creatinine [Mass/Vol] 1.23 mg/dL Critically high 0.52-1.04 [facility] Comment on above: Performed By: #### C SARAH, LIVER #### [facility] [address] [place] [address] Dr. Jessica Saravia EGFR-AF ITALIAN 53 mL/min/1.73m2 Critically low >=60 [facility] Comment on above: Performed By: #### C SARAH, LIVER #### [facility] [address] [place] [address] Dr. Jessica Saravia EGFR-NON AF ITALIAN 44 mL/min/1.73m2 Critically low >=60 [facility] Comment on above: Performed By: #### C SARAH, LIVER #### [facility] [address] [place] [address] Dr. Jessica Saravia LIVER PROFILEon 12-08-2021 Albumin [Mass/Vol] 2.8 g/dL Critically low 3.5-5.0 [facility] Comment on above: Performed By: #### C SARAH, LIVER #### [facility] [address] [address] [address] Jessica Saravia Albumin/Globulin [Mass ratio] 0.7 {ratio} Normal [facility] Comment on above: Performed By: #### C SARAH, LIVER #### [facility] [address] [address] [address] Jessica Saravia ALP [Catalytic activity/Vol] 92 U/L Normal 38-126 [facility] Comment on above: Performed By: #### C SARAH, LIVER #### [facility] [address] [address] [address] Jessica Saravia ALT [Catalytic activity/Vol] 15 U/L Normal 9-52 [facility] Comment on above: Performed By: #### C SARAH, LIVER #### [facility] [address] [address] [address] Jessica Saravia AST [Catalytic activity/Vol] 15 U/L Normal 14-36 [facility] Comment on above: Performed By: #### C SARAH, LIVER #### [facility] [address] [address] [address] Jessica Saravia BILI, CONJUGATED 0.1 mg/dL Normal 0.0-0.3 [facility] Comment on above: Performed By: #### C SARAH, LIVER #### [facility] [address] [address] [address] Jessica Saravia Bilirubin [Mass/Vol] 0.4 mg/dL Normal 0.2-1.3 [facility] Comment on above: Performed By: #### C SARAH, LIVER #### [facility] [address] [address] [address] Jessica Saravia Globulin (S) [Mass/Vol] 4.3 g/dL Normal T [facility] Comment on above: Performed By: #### C SARAH, LIVER #### [facility] [address] [address] [address] Jessica Saravia Protein [Mass/Vol] 7.1 g/dL Normal 6.1-8.2 [facility] Comment on above: Performed By: #### C SARAH, LIVER #### [facility] [address] [place], [place] [address] Dr. Jessica Sar[facility] 118 mm/hr Critically high <=30 [facility] Comment on above: Performed By: #### L IVER #### [facility] [address] [place], [place] [address] Dr. 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 (414.01) (I25.10) Rheumatoid arthritis (714.0) (M06.9) Never a smoker Morbid obesity with BMI of 40.0-44.9, adult (278.01,V85.41) (E66.01,Z68.41) Orders Coronary artery disease involving cherokee coronary artery 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, HTN (hypertension), Ischemic cardiomyopathy, Mixed hyperlipidemia ALT - Alanine Aminotransferase, Serum; Status:Active - Retrospective Authorization; Requested for:27Dec2021; AST; Status:Active - Retrospective Authorization; Requested for:27Dec2021; Basic Metabolic Panel; Status:Active - Retrospective Authorization; Requested for:27Dec2021; Lipid Panel; Status:Active - Retrospective Authorization; Requested for:[id number]; Coronary artery disease involving cherokee coronary artery 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, Mixed hyperlipidemia Stop: [...] Patient Instructions By signing my name below, Shirin Merrill LPN, Scribe, attest that this documentation has [...] up in 6 months Chief Complaint CHUCKY MOONEYREK is being seen for a 2 week follow-up of. Patient is a 65-year-old female who returns for follow-up and overall is doing well she has some exertional shortness of breath. She is performing cardiac rehab without any significant problems. She remains hypertensive today and repeat blood pressure check she is 152/80. She sustained a very large inferior MO in August 2021 with extensive AngioJet thrombectomy [...] 1/2 cup (more content not included)... Normal [employer] Tobacco Screening.on 022 Tobacco use status CPHS b) No M [address] [address] DO Work Phone: Echocardiogramon 10-04-[address], [address] [place] [address] TRANSTHORACIC ECHOCARDIOGRAM REPORT Patient Name: CHUCKY Finesse Physician: [id number] Kateryna DUNLAP MD Study Date: 10/04/2021 Referring [id number] LUKE HERRMANN Physician: MRN/PID: [id number] PCP: Reese Nixon MD Accession/Order#: [id number] Department [facility] Location: Date of : 1955 Fellow: Gender: F Nurse: Admit Date: Rn Hedis: Shana Phelps RD, T Height: 162.56 cm CC Report to: Weight: 126.10 kg Study Type: Echocardiogram BSA: 2.25 m2 Blood Pressure: 144 /94 mmHg Diagnosis/ICD: I25.5-Ischemic cardiomyopathy Indication: CAD, MO and PTCA-08/2021, Diabetes, Dyspnea, HTN, Rheumatoid Arthritis, Morbid Obesity Procedure/CPT: Echo Complete w Full [id number] Study Detail: The following Echo studies were [...] Normal Ranges: LVOT Diameter: 2.10 cm (1.8-2.4cm) [id number] Kateryna De Jesus MD Electronically signed on 10/04/2021 at 4:39:26 PM Final Normal [facility] Office Visit (Cardiology)on 10-04-2021 Follow-up visit Diagnoses/Problems Assessed Ischemic cardiomyopathy (414.8) (I25.5) Coronary artery disease involving cherokee coronary artery 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 (414.01) (I25.10) HTN (hypertension) (401.9) (I10) Diabetes mellitus (250.00) (E11.9) Mixed hyperlipidemia (272.2) (E78.2) STEMI (ST elevation myocardial infarction) (410.90) (I21.3) Morbid obesity with BMI of 40.0-44.9, adult (278.01,V85.41) (E66.01,Z68.41) Orders Coronary artery disease involving cherokee coronary artery 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, Mixed hyperlipidemia ALT - Alanine Aminotransferase, Serum; Status:Active; Requested for:[id number]; AST; Status:Active; Requested for:[id number]; Lipid Panel; Status:Active; Requested for:[id number]; Ischemic cardiomyopathy Basic Metabolic Panel; Status:Active; Requested for:[id number]; Patient Instructions PLAN: Through informed decision making [...] list o (more content not included)... Normal [employer] Tobacco Screening.on Fall risk assessment a) No falls within the last year [facility] [employer] [address] [place] Work Phone: Tobacco use status CPHS b) No M [facility] [employer] [address] [place] Work Phone: Office Visit (Cardiology)on 09-20-2021 Follow-up visit Diagnoses/Problems Assessed Ischemic cardiomyopathy (414.8) (I25.5) ICM HFrEF LVEF 35% Aug 2021 cath: FC II Stage C GDMT: coreg AND entresto added Aug 31, 2021 No aldactone currently Coronary artery disease involving cherokee coronary artery 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 (414.01) (I25.10) Aug 23, 2021 aspiration thrombectomy PDA AngioJet thrombectomy p-mRCA PCI/Skypoint 02/10 dRCA PCI/Eliceo p/mRCA No left system disease STEMI (ST elevation myocardial infarction) (410.90) (I21.3) Aug 23, 2021 [facility] [place] management Dr. Herrmann HTN (hypertension) (401.9) (I10) optimal Mixed hyperlipidemia (272.2) (E78.2) Atorvastatin was new at discharge Will need labs beginning of October Diabetes mellitus (250.00) (E11.9) Good control On ARNI/statin Morbid obesity with BMI of 40.0-44.9, adult (278.01,V85.41) (E66.01,Z68.41) Reviewed the merits of healthy lifestyle choices on overall cardiovascular health. Orders Coronary artery disease involving cherokee coronary artery 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, Mixed hyperlipidemia Start: [...] contact the office if new symptoms arise. PREPARER in 2 weeks Discussed the dynamic nature [...] phen 5-32 (more content not included)... Normal [employer] Tobacco Screening.on 021 Heart Rate Regular [facility] [address] DO Work Phone: Tobacco use status CP b) No M [facility] [employer] [address] DO Work Phone: Tobacco Screening.on 021 Fall risk assessment a) No falls within the last year [facility] [employer] 250 DO Work Phone: Tobacco use status CP b) No M [facility] [employer] 250 DO Work Phone: Vital Signs Date Time Vital Sign Value Performing Clinician Facility 10-25-2023 12:59-0500 Body temperature 97.5 [degF] DO [employer] Work Phone: [facility] 10-25-2023 12:59-0500 Body weight 110.67 kg DO [employer] Work Phone: [facility] 10-25-2023 12:59-0500 Diastolic blood pressure 76 mm[Hg] DO [employer] Work Phone: [facility] 10-25-2023 12:59-0500 Heart rate 72 /min DO Reese House Work Phone: [facility] 10-25-2023 12:59-0500 Respiratory rate 16 /min DO Reese House Work Phone: [facility] 10-25-2023 12:59-0500 SaO2% (BldA) [Mass fraction] 100 % DO Reese House Work Phone: [facility] 10-25-2023 12:59-0500 Systolic blood pressure 119 mm[Hg] DO Reese House Work Phone: [facility] 08-10-2023 11:04-0400 Diastolic blood pressure 90 mm[Hg] Luke Herrmann DO Work Phone: [facility] 08-10-2023 11:04-0400 Systolic blood pressure 120 mm[Hg] Luke Herrmann DO Work Phone: [facility] 08-10-2023 10:35-0400 Body height 162.6 cm Luke Herrmann DO Work Phone: [facility] 08-10-2023 10:35-0400 Body mass index (BMI) [Ratio] 42.57 kg/m2 Luke Herrmann DO Work Phone: [facility] 08-10-2023 10:35-0400 Body weight 112.49 kg Luke Herrmann DO Work Phone: [facility] 08-10-2023 10:35-0400 Heart rate 74 /min Luke Herrmann DO Work Phone: [facility] 04-20-2023 11:22-0400 Body height 165.1 cm DO Re[facility] House Work Phone: [facility] 04-20-2023 11:22-0400 Body temperature 98.4 [degF] DO [facility] Work Phone: [facility] 04-20-2023 11:22-0400 Body weight 110.81 kg DO Reese House Work Phone: [facility] 04-20-2023 11:22-0400 Diastolic blood pressure 81 mm[Hg] DO Reese [facility] Work Phone: [facility] 04-20-2023 11:22-0400 Heart rate 86 /min DO Re[facility] Work Phone: [facility] 04-20-2023 11:22-0400 Respiratory rate 20 /min DO Reese House Work Phone: [facility] 04-20-2023 11:22-0400 SaO2% (BldA) [Mass fraction] 97 % DO Reese Nixon Work Phone: [facility] 04-20-2023 11:22-0400 Systolic blood pressure 180 mm[Hg] DO Reese Nixon Work Phone: [facility] 11-08-2022 10:34-0500 Body height 162.56 cm Reese Good House Work Phone: [facility] [address] DO Work Phone: 11-08-2022 10:34-0500 Body mass index (BMI) [Ratio] 40.85 kg/m2 Reese P House Work Phone: [facility] 250 DO Work Phone: 11-08-2022 10:34-0500 Body surface area Derived from formula 2.11 m2 Reese P House Work Phone: [facility] [address] DO Work Phone: 11-08-2022 10:34-0500 Body weight 107.96 kg Reese P House Work Phone: [facility] DO Work Phone: 11-08-2022 10:34-0500 Diastolic blood pressure 88 mm[Hg] Reese P House Work Phone: [facility] DO Work Phone: 11-08-2022 10:34-0500 Heart rate 80 /min Reese P House Work Phone: [facility] DO Work Phone: 11-08-2022 10:34-0500 Systolic blood pressure 138 mm[Hg] Reese P House Work Phone: [facility] DO Work Phone: 10-13-2022 08:35-0500 Body temperature 97.8 [degF] DO [facility] Work Phone: [facility] 10-13-2022 08:35-0500 Body weight 106.7 kg DO Reese [facility] Work Phone: [facility] 10-13-2022 08:35-0500 Diastolic blood pressure 78 mm[Hg] DO Reese [facility] Work Phone: [facility] 10-13-2022 08:35-0500 Heart rate 79 /min DO Reese [facility] Work Phone: [facility] 10-13-2022 08:35-0500 Respiratory rate 16 /min DO Reese [facility] Work Phone: [facility] 10-13-2022 08:35-0500 SaO2% (BldA) [Mass fraction] 100 % DO Re[facility] Work Phone: [facility] 10-13-2022 08:35-0500 Systolic blood pressure 135 mm[Hg] DO Re[facility] Work Phone: [facility] 03-01-2022 09:02-0400 Body height 162.56 cm DO Re[facility] Work Phone: [facility] 03-01-2022 09:02-0400 Body mass index (BMI) [Ratio] 40.3 kg/m2 DO Re[facility] Work Phone: [facility] 03-01-2022 09:02-0400 Body weight 106.59 kg DO Re[facility] Work Phone: [facility] 03-01-2022 09:02-0400 Diastolic blood pressure 70 mm[Hg] DO [facility] Work Phone: [facility] 03-01-2022 09:02-0400 Heart rate 76 /min DO Re[facility] Work Phone: [facility] 03-01-2022 09:02-0400 Respiratory rate 18 /min DO Re[facility] Work Phone: [facility] 03-01-2022 09:02-0400 SaO2% (BldA) [Mass fraction] 98 % DO Re[facility] Work Phone: [facility] 03-01-2022 09:02-0400 Systolic blood pressure 133 mm[Hg] DO Re[facility] Work Phone: [facility] 02-02-2022 13:50-0400 Body temperature 98 [degF] DO Reese [facility] Work Phone: [facility] 02-02-2022 13:50-0400 Body weight 110.67 kg DO Reese House Work Phone: [facility] 02-02-2022 13:50-0400 Diastolic blood pressure 72 mm[Hg] DO Reese House Work Phone: [facility] 02-02-2022 13:50-0400 Heart rate 80 /min DO Reese [facility] Work Phone: [facility] 02-02-2022 13:50-0400 Respiratory rate 16 /min DO Reese [facility] Work Phone: [facility] 02-02-2022 13:50-0400 SaO2% (BldA) [Mass fraction] 95 % DO Reese [facility] Work Phone: [facility] 02-02-2022 13:50-0400 Systolic blood pressure 146 mm[Hg] DO Re[facility] Work Phone: [facility] 01-13-2022 08:19-0400 Body height 165.1 cm DO Reese [facility] Work Phone: [facility] 12-28-2021 15:13-0400 Diastolic blood pressure 73 mm[Hg] DO Re[facility] Work Phone: [facility] 12-28-2021 15:13-0400 Heart rate 72 /min DO Re[facility] Work Phone: [facility] 12-28-2021 15:13-0400 Respiratory rate 18 /min DO Re[facility] Work Phone: [facility] 12-28-2021 15:13-0400 SaO2% (BldA) [Mass fraction] 95 % DO Re[facility] Work Phone: [facility] 12-28-2021 15:13-0400 Systolic blood pressure 141 mm[Hg] DO Re[facility] Work Phone: [facility] 12-28-2021 13:48-0400 Body temperature 98.1 [degF] DO Re[facility] Work Phone: [facility] 12-28-2021 13:48-0400 Inhaled oxygen flow rate 6 L/min DO Re[facility] Work Phone: [facility] 12-28-2021 11:39-0400 Body height 162.56 cm DO Reese [facility] Work Phone: [facility] 12-28-2021 11:39-0400 Body mass index (BMI) [Ratio] 41.1 kg/m2 DO Resee [facility] Work Phone: [facility] 12-28-2021 11:39-0400 Body weight 108.86 kg DO Re[facility] Work Phone: [facility] 11-16-2021 09:35-0500 Body temperature 97.9 [degF] DO Re[facility] Work Phone: [facility] 11-16-2021 09:35-0500 Diastolic blood pressure 60 mm[Hg] DO Re[facility] Work Phone: [facility] 11-16-2021 09:35-0500 Heart rate 67 /min DO Re[facility] Work Phone: [facility] 11-16-2021 09:35-0500 Respiratory rate 16 /min DO Re[facility] Work Phone: [facility] 11-16-2021 09:35-0500 SaO2% (BldA) [Mass fraction] 100 % DO Reese [facility] Work Phone: [facility] 11-16-2021 09:35-0500 Systolic blood pressure 118 mm[Hg] DO Reese House Work Phone: [facility] 10-28-2021 11:19-0500 Diastolic blood pressure 84 mm[Hg] Reese P House Work Phone: [facility] DO Work Phone: 10-28-2021 11:19-0500 Systolic blood pressure 152 mm[Hg] Reese P House Work Phone: [facility] DO Work Phone: 10-28-2021 10:57-0500 Body height 162.56 cm Reese P House Work Phone: [facility] DO Work Phone: 10-28-2021 10:57-0500 Body mass index (BMI) [Ratio] 43.77 kg/m2 Reese P House Work Phone: [facility] DO Work Phone: 10-28-2021 10:57-0500 Body surface area Derived from formula 2.17 m2 Reese P House Work Phone: [facility] DO Work Phone: 10-28-2021 10:57-0500 Body weight 115.67 kg Reese P House Work Phone: [facility] DO Work Phone: 10-28-2021 10:57-0500 Diastolic blood pressure 100 mm[Hg] Reese P House Work Phone: [facility] DO Work Phone: 10-28-2021 10:57-0500 Heart rate 77 /min Reese P House Work Phone: [facility] DO Work Phone: 10-28-2021 10:57-0500 Systolic blood pressure 165 mm[Hg] Reese P House Work Phone: [facility] DO Work Phone: 10-11-2021 13:37-0500 Diastolic blood pressure 84 mm[Hg] Reese P House Work Phone: [facility] DO Work Phone: 10-11-2021 13:37-0500 Heart rate 82 /min Reese P House Work Phone: [facility] DO Work Phone: 10-11-2021 13:37-0500 Systolic blood pressure 160 mm[Hg] Reese P House Work Phone: [facility] DO Work Phone: 10-11-2021 13:30-0500 Body height 162.56 cm Reese P House Work Phone: [facility] DO Work Phone: 10-11-2021 13:30-0500 Body mass index (BMI) [Ratio] 44.29 kg/m2 Reese P House Work Phone: [facility] DO Work Phone: 10-11-2021 13:30-0500 Body surface area Derived from formula 2.18 m2 Reese P House Work Phone: [facility] DO Work Phone: 10-11-2021 13:30-0500 Body weight 117.03 kg Reese P House Work Phone: [facility] DO Work Phone: 10-11-2021 13:30-0500 Diastolic blood pressure 100 mm[Hg] Reese P House Work Phone: [facility] DO Work Phone: 10-11-2021 13:30-0500 Systolic blood pressure 160 mm[Hg] Reese P House Work Phone: [facility] DO Work Phone: 10-05-2021 08:27-0500 28.8 1 Reese P House Work Phone: [facility] DO Work Phone: Comment on above: MERGED WITH [facility] 10-04-2021 12:36-0500 Body height 162.56 cm Reese P House Work Phone: [facility] [address] [place] Work Phone: 10-04-2021 12:36-0500 Body mass index (BMI) [Ratio] 44.11 kg/m2 Reese P House Work Phone: [facility] [address] [place] Work Phone: 10-04-2021 12:36-0500 Body surface area Derived from formula 2.18 m2 Reese P House Work Phone: [facility] [place] Work Phone: 10-04-2021 12:36-0500 Body weight 116.58 kg Reese P House Work Phone: [facility] [place] Work Phone: 10-04-2021 12:36-0500 Diastolic blood pressure 94 mm[Hg] Reese P House Work Phone: [facility] [address] [place] Work Phone: 10-04-2021 12:36-0500 Heart rate 72 /min Reese P House Work Phone: [facility] [address] [place] Work Phone: 10-04-2021 12:36-0500 Systolic blood pressure 158 mm[Hg] Reese P House Work Phone: [facility] [address] [place] Work Phone: 10-04-2021 12:36-0500 55 1 Reese P House Work Phone: [facility] [address] [place] Work Phone: Comment on above: [id number] 09-20-2021 12:36-0500 Body height 162.56 cm Reese P House Work Phone: [facility] DO Work Phone: 09-20-2021 12:36-0500 Body mass index (BMI) [Ratio] 44.8 kg/m2 Reese P House Work Phone: [facility] 250 DO Work Phone: 09-20-2021 12:36-0500 Body surface area Derived from formula 2.19 m2 Reese P House Work Phone: [facility] DO Work Phone: 09-20-2021 12:36-0500 Body weight 118.39 kg Reese P House Work Phone: [facility] DO Work Phone: 09-20-2021 12:36-0500 Diastolic blood pressure 84 mm[Hg] Reese P House Work Phone: [facility] DO Work Phone: 09-20-2021 12:36-0500 Heart rate 74 /min Reese P House Work Phone: [facility] DO Work Phone: 09-20-2021 12:36-0500 Systolic blood pressure 126 mm[Hg] Reese P House Work Phone: [facility] 250 DO Work Phone: 08-31-2021 14:50-0500 Body height 162.56 cm Reese P House Work Phone: [facility] DO Work Phone: 08-31-2021 14:50-0500 Body mass index (BMI) [Ratio] 47.72 kg/m2 Reese P House Work Phone: [facility] DO Work Phone: 08-31-2021 14:50-0500 Body surface area Derived from formula 2.25 m2 Reese P House Work Phone: [facility] DO Work Phone: 08-31-2021 14:50-0500 Body weight 126.1 kg Reese P House Work Phone: [facility] DO Work Phone: 08-31-2021 14:50-0500 Diastolic blood pressure 112 mm[Hg] Reese P House Work Phone: [facility] DO Work Phone: 08-31-2021 14:50-0500 Heart rate 84 /min Reese P House Work Phone: [facility] DO Work Phone: 08-31-2021 14:50-0500 Systolic blood pressure 166 mm[Hg] Reese P House Work Phone: [facility] 250 DO Work Phone: 08-24-2021 12: 50 1 Reese P House Work Phone: [facility] 250 DO Work Phone: Comment on above: [id number] Encounters Encounter Date Encounter Type Care Provider Facility Start: 01-31-2024 End: 02-01-2024 ambulatory REESE P HOUSE Facility:[facility] Start: 12-04-2023 ambulatory Floresita Carlos Facility:[facility] Start: 10-31-2023 End: 11-01-2023 ambulatory REESE P HOUSE Facility:[facility] Start: 10-25-2023 End: 10-25-2023 ambulatory DO Reese House Work Phone: [facility] Work Phone: Start: 10-25-2023 End: 10-25-2023 Registered Recurring DO Reese House Work Phone: [facility] Work Phone: Start: 08-10-2023 End: 08-10-2023 ambulatory [facility] Start: 08-10-2023 End: 08-10-2023 Office outpatient visit 25 minutes [place] [place] DO Work Phone: [facility] Comment on above: Coronary artery dise ase involving cherokee coronary artery 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; History of ST elevation myocardial infarction (STEMI); Primary hypertension; Ischemic cardiomyopathy; Mixed hyperlipidemia; Type 2 diabetes mellitus with other specified complication, unspecified whether technician terminal and repeater insulin use ([facility]); Class 3 severe obesity due to excess calories with serious comorbidity and body mass index (BMI) of 40.0 to 44.9 in adult ([facility]); Rheumatoid arthritis, involving unspecified site, unspecified whether rheumatoid factor present ([facility]); S/P right coronary artery (RCA) stent placement Start: 07-31-2023 End: 08-01-2023 ambulatory REESE P HOUSE Facility:[facility] Start: 07-24-2023 End: 07-24-2023 ambulatory DO Reese Nixon Work Phone: [facility] Work Phone: Start: 07-24-2023 End: 07-24-2023 Registered Recurring DO Reese Nixon [facility] Work [facility]: Start: 07-06-2023 End: 07-07-2023 ambulatory Ant Gregory MD Facility:[facility] Start: 06-27-[address] [facility] Facility: Start: 06-21-2023 Rx Renewal Reese P H[facility] e Work Phone: [facility] 250 DO Work Phone: Start: 04-20-2023 End: 04-20-2023 ambulatory DO Reese Nixon Work Phone: [facility] Work Phone: Start: 04-20-2023 End: 04-20-2023 Registered Recurring DO Reese Nixon [facility] Work [facility]: Start: 2022 Rx Renewal Reese P [facility] Work Phone: [facility] 250 DO Work Phone: Start: 12-13-2022 Rx Renewal Reese P [facility] Work Phone: [facility] 250 DO Work Phone: Start: 11-12-2022 End: 11-13-[address] LUKE HERRMANN Facility: Start: 11-08-[address] Luke Herrmann Facility: Start: 11-08-2022 FUV, Provider: Luke Herrmann, Status: Pen, Time: 10:10 AM Reese P House Work Phone: [facility] DO Work Phone: Start: 11-08-2022 Office outpatient vi sit 25 minutes Reese P House Work Phone: [facility] 250 DO Work Phone: Start: 11-07-2022 Rx Renewal Reese P Hous e Work Phone: [facility] 250 DO Work Phone: Start: 10-31-2022 Rx Renewal Reese P Hous e Work Phone: [facility] 250 DO Work Phone: Start: 10-13-2022 End: 10-13-2022 ambulatory DO Reese Nixon Work Phone: [facility] Work Phone: Start: 10-13-2022 End: 10-13-2022 Registered Recurring DO Reese Nixon Work Phone: [facility] Work Phone: Start: 09-01-2022 FUV, Provider: Luke Herrmann, Status: Pen, Time: 11:40 AM Reese Good House Work Phone: [facility] 250 DO Work Phone: Start: 08-30-2022 Rx Change Reese P Hous e Work Phone: [facility] 250 DO Work Phone: Start: 08-29-2022 End: 08-30-2022 ambulatory [facility] Facility:H1 Start: 08-09-2022 Rx Renewal Reese P Hous e Work Phone: [facility] 250 DO Work Phone: Start: 06-16-2022 End: 06-17-[address] DOROTEO SAMAYOA Facility:H1 Start: 05-30-2022 End: 05-31-2022 ambulatory [facility] Facility:H1 Start: 04-30-2022 End: 05-01-[address] REESE NIXON Facility:H1 Start: 03-21-2022 End: 03-22-[address] DOROTEO SAMAYOA Facility:H1 Start: 03-01-2022 End: 03-01-2022 Admission to same day surgery center DO Reese Nixon Work Phone: [facility]-CT Scan [facility] [place] Start: 02-02-2022 End: 02-02-2022 Registered Recurring DO Reese Nixon Work Phone: [facility] Start: 01-26-2022 End: 01-27-[address] DOROTEO SAMAYOA Facility:H1 Start: 12-28-2021 End: 12-28-2021 Admission to same day surgery center DO Reese Nixon Work Phone: [facility]-Surgery Center [facility] [place] Start: 12-27-2021 End: 12-28-[address] DOROTEO SAMAYOA Facility:H1 Start: 12-24-2021 End: 12-24-2021 Patient encounter procedure DO Reese Nixon Work Phone: [facility]-Pre-Surgical Testing Start: 12-21-2021 Rx Renewal Reese P Hous e Work Phone: [facility] 250 DO Work Phone: Start: 12-14-2021 End: 12-14-2021 Patient encounter procedure DO Reese Nixon Work Phone: [facility]-Pre-Surgical Testing Start: 12-08-2021 End: 12-09-[address] DOROTEO SAMAYOA Facility:H1 Start: 11-16-2021 End: 11-16-2021 Admission to same day surgery center DO Reese Nixon Work Phone: [facility]-Ultrasound C[facility] for [facility] Start: 11-04-2021 End: 11-04-2021 Patient encounter procedure DO Reese House Work Phone: [facility] for [facility] Start: 10-28-2021 Office outpatient vi sit 25 minutes Reese P House Work Phone: [facility] 250 DO Work Phone: Start: 10-11-2021 Office outpatient vi sit 5 minutes Reese Nixon Work Phone: [facility] 250 DO Work Phone: Start: 10-04-2021 Patient encounter procedure Reese Nixon Work Phone: [facility] 250[facility] [place] Work Phone: Start: 09-20-2021 Office outpatient vi sit 15 minutes Reese P Hussain Work Phone: [facility] 250 DO Work Phone: Start: 09-20-2021 Rx Renewal Reese Good Hous e Work Phone: [facility] 250 DO Work Phone: Start: 09-03-2021 Telephone encounter Reese Nixon Work Phone: [facility] [employer] 250 DO Work Phone: Start: 08-31-2021 Transitional care nikkie berry srvc 7 day discharge Reese Nixon Work Phone: [facility] 250 DO Work Phone: Procedures Date Procedure Procedure Detail Performing Clinician Start: 08-09-2023 History of placement of stent for coronary artery disease S/P right coronary artery (RCA) stent placement Luke Herrmann DO Work Phone: Start: 02-21-2023 Dual energy X-ray absorptiometry DO Reese Nixon Work Phone: Start: 03-01-2022 CT of chest without contrast DO Reese Nixon Work Phone: Start: 02-07-2022 Positron emission tomography with computed tomography DO Reese [employer] Phone: Start: 12-28-2021 Mammography of left breast specimen DO Reese [employer] Work Phone: Start: 12-28-2021 Biopsy of breast DO Janay stewart [employer] Work Phone: Start: 12-28-2021 Radionuclide sentine l lymph node study DO Reese [employer] Work Phone: Start: 12-27-2021 Mammography of left breast DO Reese Nixon Work Phone: Start: 12-27-2021 Ultrasonography guid ed needle localization of lesion of left breast DO Reese Nixon Work Phone: Start: 11-16-2021 Mammography of left breast DO Reese Nixon Work Phone: Start: 11-16-2021 Core needle biopsy o f breast using ultrasound guidance DO Leigh [employer] Work Phone: Start: 11-04-2021 Ultrasonography of l eft breast DO Leigh [employer] Work Phone: Start: 11-04-2021 Bilateral mammography D O Reese [employer] Work Phone: Start: 10-04-2021 Echocardiography Trace nilsa Good [employer] Work Phone: History of placement of stent for coronary artery disease Status post insertion of drug eluting coronary artery stent Reese Good [employer] Work Phone: History of placement of stent for coronary artery disease S/P right coronary artery (RCA) stent placement Luke Cordoba [employer] Work Phone: Lumpectomy of breast Reese Good [employer] Work Phone: Operative procedure on ankle Reese Good [employer] Work Phone: NEGATED: Highlighted row has not occurred! Total colonoscopy Reese Good [employer] Work Phone: Plan of Treatment Date Care Activity Detail Author Start: 08-10-2023 End: 08-10-2024 Alanine aminotransferase [Enzymatic activity/volume] in Serum or Plasma by With P-5'-P Alanine Aminotransferase Lab Routine Mixed hyperlipidemia Expected: 08/10/2023 (Approximate), Expires: 08/10/2024 [facility] Service Area Work Phone: Comment on above: Expected: 08/10/2023 (Approximate), Expi res: 08/10/2024 Start: 08-10-2023 End: 08-10-2024 Aspartate aminotransferase [Enzymatic activity/volume] in Serum or Plasma by With P-5'-P Aspartate Aminotransferase Lab Routine Mixed hyperlipidemia Expected: 08/10/2023 (Approximate), Expires: 08/10/2024 [facility] Work Phone: Comment on above: Expected: 08/10/2023 (Approximate), Expi res: 08/10/2024 Start: 08-10-2023 End: 08-10-2024 C reactive protein [Mass/volume] in Serum or Plasma by High sensitivity method High sensitivity CRP Lab Routine Coronary artery disease involving cherokee coronary artery 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 Ischemic cardiomyopathy Expected: 08/10/2023 (Approximate), Expires: 08/10/2024 [facility] Work Phone: Comment on above: Expected: 08/10/2023 (Approximate), Expi res: 08/10/2024 Start: 08-10-2023 End: 08-10-2024 Lipid 1996 panel - Serum or Plasma Lipid Panel Lab Routine Mixed hyperlipidemia Expected: 08/10/2023 (Approximate), Expires: 08/10/2024 [facility] Work Phone: Comment on above: Expected: 08/10/2023 (Approximate), Expi res: 08/10/2024 Start: 06-27-2023 FUV, Provider: Luke Herrmann, Status: Sha, Time: 11:20 AM FUV, Provider: Luke Herrmann, Status: Sha, Time: 11:20 AM [facility] 250 DO Work Phone: Start: 06-16-2023 Influenza vaccination Influenza Vaccine (#1) [facility] Start: 11-08-2022 FUV, Provider: Luke Herrmann, Status: Sha, Time: 10:10 AM FUV, Provider: Luke Herrmann, Status: Sha, Time: 10:10 AM [facility] 250 DO Work Phone: Start: 09-01-2022 FUV, Provider: Luke Herrmann, Status: Pen, Time: 11:40 AM FUV, Provider: Luke Herrmann, Status: Pen, Time: 11:40 AM -[facility] 250 DO Work Phone: Start: 05-10-2022 FUV, Provider: Luke Herrmann, Status: Pen, Time: 1:50 PM FUV, Provider: Luke Herrmann, Status: Pen, Time: 1:50 PM -[facility] 250 DO Work Phone: Start: 12-07-2021 FUV, Provider: Luke Herrmann, Status: Pen, Time: 2:00 PM FUV, Provider: Luke Herrmann, Status: Pen, Time: 2:00 PM -[facility] 250 DO Work Phone: Start: 10-27-2021 FUV, Provider: Luke Herrmann, Status: Pen, Time: 11:30 AM FUV, Provider: Luke Herrmann, Status: Pen, Time: 11:30 AM [facility] 250 DO Work Phone: Start: 10-11-2021 NURSEVST, Provider: ROSA STEPHENSON BLASTER HELPER 1,[id number], Status: Pen, Time: 1:00 PM NURSEVST, Provider: ROSA STEPHENSON BLASTER HELPER 1,[id number], Status: Pen, Time: 1:00 PM [facility] [place] Work Phone: Start: 10-04-2021 ECHO, Provider: [place] [facility]TR[facility] 01,[id number], Status: Pen, Time: 1:30 PM ECHO, Provider: [place] [facility] 01,[id number], Status: Pen, Time: 1:30 PM [facility] 250 DO Work Phone: Start: 10-04-2021 FUV, Provider: Salima Penaloza, Status: Pen, Time: 12:30 PM FUV, Provider: Salima Penaloza, Status: Pen, Time: 12:30 PM -[facility] 250 DO Work Phone: Start: 09-20-2021 FUV, Provider: Salima Penaloza, Status: Pen, Time: 12:30 PM FUV, Provider: Salima Penaloza, Status: Pen, Time: 12:30 PM [facility] 250 DO Work Phone: Start: 2006 Zoster Vaccines (1 of 2) Zoster Vaccines (1 of 2) [facility] Start: 1978 DTaP/Tdap/Td Vaccines (1 - Tdap) DTaP/Tdap/Td Vaccines (1 - Tdap) [facility] Start: 12-23-1975 Urine screening for protein Diabetes: Urine Protein Screening [facility] Start: 1974 Hepatitis C screening Hepatitis C Screening [facility] Start: 1966 Diabetic foot examination Diabetes: Foot Exam [facility] Start: 1966 Glaucoma screening Diabetes: Retinopathy Screening [facility] Start: 1962 Pneumococcal Vaccine: 65+ Years (1 - PCV) Pneumococcal Vaccine: 65+ Years (1 - PCV) [facility] Start: 06-24-1957 COVID-19 Vaccine (#1) COVID-19 Vaccine (#1) [facility] Start: 1956 Hemoglobin A1c measurement Diabetes: Hemoglobin A1C [facility] Start: 1956 Lipid panel Lipid Panel [facility] Start: 1956 Medicare Annual Wellness Visit Medicare Annual Wellness Visit (AWV) [facility] Start: 1956 Screening for malignant neoplasm of colon [facility] Start: 1956 Screening for osteoporosis Bone Density Scan [facility] Start: 1956 Thyroid stimulating hormone measurement TSH Level [facility] Computed tomography for radiotherapy planning [facility] MG Breast - bilatera l Diagnostic [facility] Patient referral [facility] Work Phone: [facility] Payers Date Payer Category Payer Unknown 2022 Self-pay [id number] 2022 Unknown [id number] 2022 Unknown [id number] 2014 Medicare MEDICARE MEDICAR E PART A AND B [id number] 2014-Present [address] [place] [address] [id number] 1959 Medicare [id number] 1959 Unknown [id number] 1959 Unknown [id number] 1956 Unknown [id number] [id number]3 1956 Unknown [id number] 2.16.840.1.254668.3.579.2.593 1956 Unknown [id number] .16.840.1.158788.3.579.2.593 1956 Unknown [id number] 2.16.840.1.574386.3.579.2.593 1956 Unknown [id number] 2.16.840.1.388336.3.579.2.593 1956 Unknown [id number] .16.840.1.298536.3.579.2.593 1956 Unknown [id number] 2.16.840.1.071961.3.579.2.593 1956 Unknown [id number] 2.16.840.1.243827.3.579.2.593 1956 Unknown [id number] 2.16.840.1.989691.3.579.2.593 1956 Unknown [id number] 2.16.840.1.966627.3.579.2.593 1956 Unknown [id number] 2.16.840.1.204664.3.579.2.593 1956 Unknown [id number] 2.16.840.1.071398.3.579.2.593 1956 Unknown [id number] 2.16.840.1.029486.3.579.2.356 1956 Unknown [id number] 2.16.840.1.821210.3.579.2.356 1956 Unknown [id number] 2.16.840.1.593611.3.579.2.1244 1956 Unknown [id number] 2.16.840.1.251984.3.579.2.718 1956 Unknown [id number] 2.16.840.1.048030.3.579.2.718 1956 Unknown [id number] 2.16.840.1.610221.3.579.2.718 1956 Unknown [id number] 2.16.840.1.029771.3.579.2.718 Unknown [id number] 2.16.840.1.881495.3.579.2.531 Social History Date Type Detail Facility Start: 08-10-2023 No alcohol use No alcohol use -[facility] 250 DO Work Phone: Comment on above: 2 cups daily, diet p op occasional; 1/2 cup daily; Start: 01-13-2022 End: 10-25-2023 Tobacco smoking status NHIS Never smoked tobacco (finding) [facility] Start: 1955 Sex Assigned At Female F [facility] Start: 08-10-2023 Tobacco use and exposure Smokeless tobacco non-user [facility] Work Phone: Start: 08-10-2023 Alcohol intake Lifetime non-d amanda (finding) [facility] Work Phone: Start: 08-10-2023 Tobacco use panel [facility] Work Phone: Start: 1955 Sex Assigned At Not on file U [facility] Work Phone: Start: 07-31-2023 End: 08-10-2023 Exposure to SARS-CoV-2 (event) Not sure [facility] Medical Equipment Procedure Code Equipment Code Equipment Origin al Text Equipment Identifier Dates Biopsy, breast, with lumpectomy Imaging lesion localization marker, implantable [id number] FDA Start: 12-28-2021 Drug-eluting coronary artery stent, gjo-ksujhjqklywfx-ji lymer-coated [id number] FDA Start: 08-23-2021 Drug-eluting coronary artery stent, itl-euwwvwbaxvvtv-mh lymer-coated [id number] FDA Start: 08-23-2021 Goals Date Patient Goal [...] nitrate usage recurrent hospitalizations. She had inferior MO July 2021 with AngioJet thrombectomy and 2 [...] No diagnosis found. documented in this encounter [facility] Work Phone: 08-10-2023 Instructions Ajith Metz MA [...] of your visit. documented in this encounter [facility] Work Phone: 07-25-2023 Progress note Note Date/Time July 24, 2023 11:51am [facility] at [address] [address] Hem/Onc Follow Up Note - OP Signed Patient: Chucky Dunlap MR#: [id number] : 1955 Acct:[id number] Age/Sex: 67 / F Type: REG RCR Copies to: Reese House, DO Salty Itzkowitz, DO~ Subjective Date/Time of Service: Date of [...] her care from Dr. Patel to Dr. Wing of pulmonary medicine at [place]. Her most recent follow-up with him after [...] Das since coordinated longitudinal follow-up with Dr. Wing (pulmonology) to follow-up with serial CT scan. [...] scan was performed February 12, 2021 at [facility] revealing baseline osteopenia/decreased bone density. [...] nodules within the left lung base. Dr. Wing at [place] referred her to Dr. Patel of CT [...] was performed 11/24/2021 revealing invasive lobular carcinoma, Rover histologic grade 2 (3+2+1 equal 6). Lobular [...] PET/CT. Pathology invasive lobular carcinoma, ER 95%, OK 0%, HER-2 nonamplified by FISH. 2. History [...] 04/20/2023 Pulmonary nodules - followed by Dr. Wing with serial imaging -most recent CT scan [...] environmental allergies and food allergies. PMFSH - Medical History Medical History: Medical History [...] PET/CT. Pathology invasive lobular carcinoma, ER 95%, OK 0%, HER-2 nonamplified by FISH. Oncotype DX [...] are favored to be rheumatoid and Dr. Wing has personally contacted me regarding ongoing follow-up of these nodules. We are requesting her outside [place] [facility] for our records. 04/20/2023: Chucky is [...] discuss pain and possible referral to another jail keeper - in the interim; I will give [...] for coordination of care (as documented) and igtz-ci-gnst counseling of patient and/or family. Dictated By: Lizzie Galeas APRN DD/ [id number] Signed By: <Electronically signed by DAY Galeas> 07/25/23 1423 [facility] Work Phone: 1(226) 851-443907-06-2023 Progress note Author Lizzie Galeas [facility] April 20, 2023 1:09pm Note Date/Time April 20, 2023 12:27 pm [facility] [place] [address] Hem/Onc Follow Up Note - OP Signed Patient: Chucky Dunlap MR#: [id number] : 1955 Acct:[id number] Age/Sex: 67 / F Type: REG RCR [...] her care from Dr. Patel to Dr. Wing of pulmonary medicine at [place]. Her most recent follow-up with him after [...] him every 3 to 4 months. 04/04/2022: Chukcy is here for 1 month toxicity visit [...] Das since coordinated longitudinal follow-up with Dr. Wing (pulmonology) to follow-up with serial CT scan. [...] scan was performed February 12, 2021 at [facility] revealing baseline osteopenia/decreased bone density. [...] nodules within the left lung base. Dr. Wing at [place] referred her to Dr. Patel of CT [...] was performed 11/24/2021 revealing invasive lobular carcinoma, Rover histologic grade 2 (3+2+1 equal 6). Lobular [...] PET/CT. Pathology invasive lobular carcinoma, ER 95%, OK 0%, HER-2 nonamplified by FISH. 2. History [...] 04/20/2023 Pulmonary nodules - followed by Dr. Wing with serial imaging -most recent CT scan [...] Negative for environmental allergies and food allergies. [facility] - Medical History Medical History: [...] mg PO DAILY 90 days #90 tabs 06/20/22 [Rx Confirmed 04/20/23] nystatin 100,000 unit/gram topical [...] EXTREMITIES: No edema, cyanosis or clubbing. No Ariaan sign. NEUROLOGICAL: Alert and oriented. Cranial nerves intact. No gross motor or sensory deficits. PSYCHIATRIC: No anxiety or evidence of depression. - ECOG Performance Status ECOG Score: 0 Assessment and Plan - TNM Staging Staging: T2 N0 MX (2.4 cm, 4 lymph nodes negative) left breast cancer found incidentally on PET/CT. Pathology invasive lobular carcinoma, ER 95%, OK 0%, HER-2 nonamplified by FISH. Oncotype DX [...] are favored to be rheumatoid and Dr. Wing has personally contacted me regarding ongoing follow-up of these nodules. We are requesting her outside [place] CT for our records. 04/20/2023: Chucky is [...] in size. She has sinceseen both Dr. Paetl and Dr. Wing. - She saw Dr. Wing on 03/21/2022 and most recent repeat CT scan showed decrease in size; therefore, biopsy was deferred. - Dr. Wing contacted me last month and noted that he feels these are more likely benign rheumatoid nodules and he will continue to follow with serial imaging at [facility]. Last CT scan at [facility] - August2022. (3) ST elevation (STEMI) myocardial infarction The patient had ST elevation MO with left heart catheterization August 2021 showing [...] for coordination of care (as documented) and hwli-ii-rhcg counseling of patient and/or family. Dictated By: Lizzie Galeas APRN DD/ 1226 Signed By: <Electronically signed by DAY Galeas> 04/20/23 9[address] [facility] Work Phone: 1(590) 887-220512-29-2022 Progress note Author Floresita Gonzalez [facility] October 13, 2022 9:14am Note Date/Time October 13, 2022 8:45am [facility] at [place] [id number] Hem/Onc Follow Up Note - OP Signed Patient: Chucky Dunlap MR#: [id number] : 1955 Acct:[id number] Age/Sex: 66 / F Type: REG RCR Copies to: Reese Nixon, DO Salty Gonzalez, DO Zoe Wing, DO Doroteo Samayoa MD~ Subjective Date/Time of Service: Date of Service: 10/13/2022 Time of Service: 08:45 Chief Complaint: Patient is here today for a 6 month follow up visit for breast cancer HPI: 10/13/2022: W transferred her care from Dr. Patel to Dr. Wing of pulmonary medicine at [place]. Her most recent follow-up with him after [...] Das since coordinated longitudinal follow-up with Dr. Wing (pulmonology) to follow-up with serial CT scan. [...] scan was performed February 12, 2021 at [facility] revealing baseline osteopenia/decreased bone density. [...] nodules within the left lung base. Dr. Wing at [place] referred her to Dr. Patel of CT [...] PET/CT. Pathology invasive lobular carcinoma, ER 95%, OK 0%, HER-2 nonamplified by FISH. 2. History [...] 03/11/2022. Pulmonary nodules - followed by Dr. Wing with serial imaging -most recent CT scan [...] Negative for environmental allergies and food allergies. PMF - History Attestation statement: The following information [...] review - Impressions Outside CT imaging from [place] is being requested for her records. Followed by Dr. Wing. Assessment and Plan - TNM Staging Staging: T2 N0 MX (2.4 cm, 4 lymph nodes negative) left breast cancer found incidentally on PET/CT. Pathology invasive lobular carcinoma, ER 95%, OK 0%, HER-2 nonamplified by FISH. Oncotype DX [...] are favored to be rheumatoid and Dr. Wing has personally contacted me regarding ongoing follow-up of these nodules. We are requesting her outside [facility] for our records. Moderate complexity visit over 30 minutes. (2) Pulmonary nodules/lesions, multiple Bibasilar pulmonary nodules on PET/CT September 2021. - Repeat PET/CT done in January 2022; which showed increase in size. She has sinceseen both Dr. Patel and Dr. Wing. - She saw Dr. Wing on 03/21/2022 and most recent repeat CT scan showed decrease in size; therefore, biopsy was deferred. - Dr. Wing contacted me last month and noted that he feels these are more likely benign rheumatoid nodules and he will continue to follow with serial imaging at [facility]. (3) ST elevation (STEMI) myocardial infarction The patient had ST elevation MO with left heart catheterization August 2021 showing [...] for coordination of care (as documented) and svlt-uu-fzyp counseling of patient and/or family. Dictated By: Floresita Gonzalez MD DD/ 0845 Signed By: <Electronically signed by MD Floresita Gonzalez> 10/13/22 0914 [facility] Work Phone: 1(741) 833-739706-20-2022 Progress note Author Della Louis [facility] April 04, 2022 3:32pm Note Date/Time April 04, 2022 11:2 3am [facility] [place] [address] Rad Onc Follow Up Note - OP Signed Patient: Chucky Dunlap MR#: [id number] : 1955 Acct:[id number] Age/Sex: 66 / F Type: REG RCR Copies to: MD eRese Paulino DO Fredric Itzkowitz, DO~ Assessment & [...] was LCIS with associated microcalcifications. ER positive OK negative HER-2 negative by FISH. December 28, [...] signed by Della Louis MD> 04/04/22 [facility] [facility] Work Phone: 1(417) 560-268506-20-2022 Progress note Author Lizzie Galeas [facility] April 04, 2022 12:49pm Note Date/Time April 04, 2022 11:4 8am [facility] [place] [address] Hem/Onc Follow Up Note - OP Signed Patient: Chucky Dunlap MR#: [id number] : 1955 Acct:[id number] Age/Sex: 66 / F Type: REG RCR [...] Das since coordinated longitudinal follow-up with Dr. Wing (pulmonology) to follow-up with serial CT scan. [...] scan was performed February 12, 2021 at [facility] revealing baseline osteopenia/decreased bone density. [...] nodules within the left lung base. Dr. Wing at [place] referred her to Dr. Patel of CT [...] PET/CT. Pathology invasive lobular carcinoma, ER 95%, OK 0%, HER-2 nonamplified by FISH. 2. History [...] 03/11/2022. Pulmonary nodules - followed by Dr. Wing with serial imaging - next CT scan [...] Negative for environmental allergies and food allergies. [facility] - Medical History Medical History: [...] Results - Impressions Patient: Chucky Dunlap MR#: [id number] : 1955 Acct:[id number] Age/Sex: 66 / F ADM Date: 2 Loc: XT Room: Type: [facility] RCR Attending Dr: Floresita Gonzalez MD Ordering Provider: [...] PET/CT. Pathology invasive lobular carcinoma, ER 95%, OK 0%, HER-2 nonamplified by FISH. Oncotype DX [...] has sinceseen both Dr. Patel and Dr. Wing. - She saw Dr. Wing on 03/21/2022 and most recent repeat CT [...] myocardial infarction The patient had ST elevation MO with left heart catheterization August 2021 showing [...] for coordination of care (as documented) and zypi-[id number] counseling of patient and/or family. Dictated By: Lizzie Galeas APRN DD/ 1148 Signed By: <Electronically signed by DAY Galeas> 04/04/22 1249 [facility] Work Phone: 1(644) 564-633104-21-2022 Progress note Author Floresita Gonzalez [facility] February 03, 2022 12:11pm Note Date/Time February 02, 2022 1:5 5pm [facility] [place] [address] Hem/Onc Follow Up Note - OP Signed Patient: Chucky Dunlap MR#: [id number] : 1955 Acct:[id number] Age/Sex: 66 / F Type: REG RCR [...] scan was performed February 12, 2021 at [facility] revealing baseline osteopenia/decreased bone density. [...] nodules within the left lung base. Dr. Wing at [place] referred her to Dr. Patel of CT [...] by FISH. She was referred to Dr. Goznalez for left breast lumpectomy with sentinel lymphnode biopsy. This revealed invasive lobular carcinoma, Rover histologic grade 2, size 2.4 cm, associated [...] PET/CT. Pathology invasive lobular carcinoma, ER 95%, OK 0%, HER-2 nonamplified by FISH. 2. History [...] Negative for environmental allergies and food allergies. [facility] - History Attestation statement: The [...] M.D.09/29/2021 11:44 AM 02/12/2021 DEXA scan at [facility]: AP spine T score -1.4, osteopenia Left femoral neck T score -1.3, osteopenia Right femoral neck T score -1.1, osteopenia Assessment and Plan - TNM Staging Staging: T2 N0 MX (2.4 cm, 4 lymph nodes negative) left breast cancer found incidentally on PET/CT. Pathology invasive lobular carcinoma, ER 95%, OK 0%, HER-2 nonamplified by FISH. Oncotype DX [...] myocardial infarction The patient had ST elevation MO with left heart catheterization August 2021 showing [...] for coordination of care (as documented) and ncmp-[id number]-qhkh counseling of patient and/or family. Dictated By: Floresita Gonzalez MD DD/ 1353 Signed By: <Electronically signed by MD Floresita Gonzalez> 02/03/22 [facility]ly [facility], [id number] [facility] Work Phone: 1(982) 109-914703-31-2022 Consult note Author Floresita Gonzalez [facility] January 13, 2022 3:36pm Note Date/Time January 13, 2022 8:3 2am [facility] [place] [id number] Hem/Onc Consult Note - OP Signed Patient: Chucky Dunlap MR#: [id number] : 1955 Acct:[id number] Age/Sex: 66 / F Type: REG RCR Copies to: MD Reese Alvarado DO Fredric Itzkowitz, ~ HPI Date/Time of Service: Date of Service: [...] node negative invasive lobular carcinoma. ER 95%, OK 0, HER-2/ortiz 2+ by IHC (indeterminate) but [...] nodules within the left lung base. Dr. Wing at [place] referred her to Dr. Patel of CT [...] was performed 11/24/2021 revealing invasive lobular carcinoma, Rover histologic grade 2 (3+2+1 equal 6). 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 Estrogen receptor +95%, progesterone receptor -0%, HER-2/ortiz was equivocal by IHC but negative by FISH. She was referred to Dr. Gonzalez for left breast lumpectomy with sentinel lymphnode biopsy. This revealed invasive lobular carcinoma, Rover histologic grade 2, size 2.4 cm, associated [...] and to determine further plan of therapy. [facility] - History Attestation statement: The [...] PET/CT. Pathology invasive lobular carcinoma, ER 95%, OK 0%, HER-2 nonamplified by FISH. 2. History [...] PET/CT. Pathology invasive lobular carcinoma, ER 95%, OK 0%, HER-2 nonamplified by FISH. (1) Malignant [...] myocardial infarction The patient had ST elevation MO with left heart catheterization August 2021 showing [...] for coordination of care (as documented) and gtlt-[id number] counseling of patient and/or family. Dictated By: Floresita Gonzalez MD DD/ 1 Signed By: <Electronically signed by MD Floresita Gonzalez> 01/13/22 1535 [facility] Work Phone: 1([phone]) [phone] Consult note Author Della Louis [facility] January 13, 2022 10:04am Note Date/Time January 12, 2022 3:4 7pm [facility] [place] [address] Rad Onc Consult Note - OP Signed Patient: Chucky Dunlap MR#: [id number] : 1955 Acct:[id number] Age/Sex: 66 / F Type: REG RCR [...] was LCIS with associated microcalcifications. ER positive OK negative HER-2 negative by FISH. December 28, [...] Oncotype DX as well as antihormonal therapy. [facility] - Medical History Medical History: [...] abdomen. Dictated By: Della Louis MD DD/ 6107 Signed By: <Electronically signed by Della Louis MD> 01/13/22 1007 [facility] Work Phone: Chief complaint Narrative - Reported* [...] use either lower dose ARB or HAYLEE -[facility] DO Work Phone: Chief complaint Narrative [...] use either lower dose ARB or HAYLEE -[address] Work Phone: Chief complaint Narrative - Reported* [...] use either lower dose ARB or HAYLEE [facility] Work Phone: Evaluation noteNo assessment information available [facility] Work Phone: evaluation note* Diagnosis Onset Date Resolution Status Breast cancer, left breast a cute ST elevation (STEMI) myocardial infarction acute Abnormal positron emission t omography (PET) scan of head chronic [id number] chronic Pulmonary nodules/lesions, multiple chronic [facility] Work Phone: evaluation note* Diagnosis Onset Date Resolution Status Breast cancer, left breast a cute Abnormal positron emission t omography (PET) scan of head chronic [id number] chronic Osteopenia chronic Pulmonary nodules/lesions, multiple chronic ST elevation (STEMI) myocardial infarction chronic Use of aromatase inhibitors chronic [facility] Work Phone: Evaluation note* Diagnosis Onset Date Resolution Status Breast cancer, left breast a cute Abnormal positron emission t omography (PET) scan of head chronic [id number] chronic Osteopenia chronic Pulmonary nodules/lesions, multiple chronic Rheumatoid arthritis chronic Skin candidiasis chronic ST elevation (STEMI) myocardial infarction chronic Use of aromatase inhibitors chronic [facility] Work Phone: Evaluation note* Diagnosis Coronary artery disease involving cherokee coronary artery 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 History of ST elevation myocardial infarction (STEMI) Primary hypertension Unspecified essential hypertension Ischemic cardiomyopathy Other specified forms of chronic ischemic heart disease Mixed hyperlipidemia Type 2 diabetes mellitus with other specified complication, unspecified whether senior living insulin use ([facility]) Class 3 severe obesity due to excess calories with serious comorbidity and body mass index (BMI) of 40.0 to 44.9 in adult ([facility]) Rheumatoid arthritis, involving unspecified site, unspecified whether rheumatoid factor present ([facility]) S/P right coronary artery (RCA) stent placement documented in this encounter [facility] Work Phone: History of Present illness Narrative* [...] denies medication side effects. Due For: electrolytes. -[facility] DO Work Phone: Hospital Discharge instructionsAmbulatory Orders* Obtain Medical Records From: Time Frame: 1 Day, Location: Determined By Patient * Place on Tumor Board Time Frame: 1 Week, Location: Determined By Patient [facility] Work Phone: Progress note Author Floresita Gonzalez [facility] October 13, 2022 9:14am Note Date/Time October 13, 2022 8:45am [facility] [address] [address] Hem/Onc Follow Up Note - OP Signed Patient: Chucky Dunlap MR#: [id number] : 1955 Acct:[id number] Age/Sex: 66 / F Type: REG RCR Copies to: DO Salty James, DO Zoe Wing, DO Doroteo Samayoa MD~ Subjective Date/Time of Service: Date of Service: 10/13/2022 Time of Service: 08:45 Chief Complaint: Patient is here today for a 6 month follow up visit for breast cancer HPI: 10/13/2022: W transferred her care from Dr. Patel to Dr. Wing of pulmonary medicine at [place]. Her most recent follow-up with him after [...] Das since coordinated longitudinal follow-up with Dr. Wing (pulmonology) to follow-up with serial CT scan. [...] scan was performed February 12, 2021 at [facility] revealing baseline osteopenia/decreased bone density. [...] nodules within the left lung base. Dr. Wing at [place] referred her to Dr. Patel of CT [...] PET/CT. Pathology invasive lobular carcinoma, ER 95%, OK 0%, HER-2 nonamplified by FISH. 2. History [...] 03/11/2022. Pulmonary nodules - followed by Dr. Wing with serial imaging -most recent CT scan [...] review - Impressions Outside CT imaging from [place] is being requested for her records. Followed by Dr. Wing. Assessment and Plan - TNM Staging Staging: T2 N0 MX (2.4 cm, 4 lymph nodes negative) left breast cancer found incidentally on PET/CT. Pathology invasive lobular carcinoma, ER 95%, OK 0%, HER-2 nonamplified by FISH. Oncotype DX [...] [facility]. [facility] We will continue to follow every 6 months--she will be due for her next DEXA prior to follow-up in 6 months. Pulmonary nodules as noted below are favored to be rheumatoid and Dr. Wing has personally contacted me regarding ongoing follow-up of these nodules. We are requesting her outside [facility] for our records. Moderate complexity visit over 30 minutes. (2) Pulmonary nodules/lesions, multiple Bibasilar pulmonary nodules on PET/CT September 2021. - Repeat PET/CT done in January 2022; which showed increase in size. She has sinceseen both Dr. Patel and Dr. Wing. - She saw Dr. Wing on 03/21/2022 and most recent repeat CT scan showed decrease in size; therefore, biopsy was deferred. - Dr. Wing contacted me last month and noted that he feels these are more likely benign rheumatoid nodules and he will continue to follow with serial imaging at [facility]. (3) ST elevation (STEMI) myocardial infarction The patient had ST elevation MO with left heart catheterization August 2021 showing [...] for coordination of care (as documented) and krds-[id number] counseling of patient and/or family. Dictated By: Floresita Gonzalez MD DD/ 0845 Signed By: <Electronically signed by MD Floresita Gonzalez> 10/13/22 0914 [facility] Work Phone: Reason for referral (narrative)* Consultation (Routine) - Authorized Specialty Diagnoses / Procedures Referred By Contac t Referred To Contact Cardiology Diagnoses Coronary artery disease involving cherokee coronary artery 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 Primary hypertension Ischemic cardiomyopathy Procedures Follow Up In Cardiology Luke Herrmann DO [address] [place] [address], [address] [address] Luke Herrmann DO [address] [place] [address] 2, [address] [address] Referral ID Status Reason Start Date Expiration Date V isits Requested Visits Authorized [id number] Authorized 08/10/2023 08/09/2024 1 1 [facility] Work Phone: Family History No Family [...] * She sustained a very large inferior MO in August 2021 with extensive AngioJet thrombectomy [...] time. 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 Summary Purpose [...] positron emission tomography (PET) scan of head [id number] Pulmonary nodules/lesions, multiple Chief Complaint r91.8 Chief Complaint Breast Cancer Reason for Visit Breast cancer, left breast Abnormal positron emission tomography (PET) scan of head [id number] Osteopenia Pulmonary nodules/lesions, multiple ST elevation (STEMI) myocardial infarction Use of aromatase inhibitors Chief Complaint Breast Cancer Reason for Visit Breast cancer, left breast Abnormal positron emission tomography (PET) scan of head [id number] Osteopenia Pulmonary nodules/lesions, multiple Rheumatoid arthritis Skin candidiasis ST elevation (STEMI) myocardial infarction Use of aromatase inhibitors Additional Source Comments INFORMATION SOURCE (unrecogn ized section and content) DATE CREATED AUTHOR 10/06/2021 [facility] DATE CREATED AUTHOR AUTHOR'S ORGANIZ ATION 10/29/2021 [facility] DATE CREATED AUTHOR AUTHOR'S ORGANIZ ATION 11/14/2022 [facility] DATE CREATED AUTHOR AUTHOR'S ORGANIZ ATION 06/28/2023 [facility] DATE CREATED AUTHOR AUTHOR'S ORGANIZ ATION 08/13/2023 [facility] DATE CREATED AUTHOR AUTHOR'S ORGANIZ ATION 12/05/2023 [facility] DATE CREATED AUTHOR AUTHOR'S ORGANIZ ATION 02/01/2024 [facility] Care Teams (unrecognized sec tion and content) Team Status: Inactive Member Role Status Dates Reese Nixon , Primary Care Provider Active Salty Gonzalez , Attending Provider Active Team Status: Inactive Member Role Status Dates Reese Nixon , DO Primary Care Provider Active Marcin Patel MD Attending Provider Active Team Status: Active Member Role Status Dates Reese Hussain , DO Primary Care Provider Active Team Status: Active Member Role Status Dates Reese Nixon , Primary Care Provider Active Salty Gonzalez , Referring Provider Active Floresita Gonzalez MD Attending Provider Active 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 [employer] provides no warranty or guarantee of the accuracy or completeness of information in this document.
[2024-02-13 13:37] LABS: Basophils Absolute Auto 0.1 10^3/uL (0.0-0.1); Basophils Percent Auto 1.3 % (0.2-2.0); Eosinophils Absolute Auto 0.6 10^3/uL (0.0-0.7); Eosinophils Percent Auto 8.5 % (0.9-7.0); Hematocrit 33.8 % (36.0-48.0); Hemoglobin 10.8 g/dL (12.0-16.0); Immature Granulocytes Abs Auto 0.02 10^3/uL (0.00-0.03); Immature Granulocytes Pct Auto 0.3 % (0.0-0.5); Lymphocytes Absolute Auto 1.9 10^3/uL (1.2-3.8); Lymphocytes Percent Auto 26.9 % (20.5-60.0); Mean Corpuscular Hemoglobin 31.8 pg (26.7-34.0); Mean Corpuscular Volume 99.4 fL (81.0-99.0); Mean Platelet Volume 11.8 fL (9.5-13.5); Monocytes Absolute Auto 0.7 10^3/uL (0.3-0.8); Monocytes Percent Auto 9.6 % (1.7-12.0); Neutrophils Absolute Auto 3.8 10^3/uL (1.4-6.5); Neutrophils Percent Auto 53.4 % (43.0-75.0); Platelet Count 205 10^3/uL (150-450); Red Cell Distribution Width 14.5 % (11.0-15.0); White Blood Count 7.1 10^3/uL (4.0-11.0)
[2024-02-13 13:38] LABS: Erythrocyte Sedimentation Rate 49 mm/hr (<=30)
[2024-02-13 13:52] LABS: Alanine Aminotransferase 27 U/L (14-59); C Reactive Protein <0.50 mg/dL (<=0.50); Estimated GFR (African America 59 (>=60); Estimated GFR (Non-African Ame 49 (>=60)
== END 2024-02-13 13:03 | disposition home or self-care (01) ==
LOC: LAB 13:03
PROVIDERS: PCP Family Medicine
DX: M05.9 Rheumatoid arthritis with rheumatoid factor, unspecified (principal)
CPT/HCPCS: 36415; 82042; 82565; 84460; 85025; 85652; 86140

== ENCOUNTER 2024-02-23 07:40 | Outpatient (RCR) | payer MEDICARE, OTHER, SELFPAY ==
[2024-02-23 15:03] VITALS: BP 129/72; PULSE 72; TEMP 37.1; O2SAT 96
--- NOTE | 2024-02-23 15:06 | PC.NURSE ---
1430 Arrival ambulatory, Alert oriented. here for new infusion to treat Rheumatoid arthritis. 1440 #24 iv inserted rt forearm on 1 attempt, tolerated well.
--- NOTE | 2024-02-23 15:08 | PC.NURSE ---
1453 Infusion initiated as ordered. Instructed on s/s of reaction and to notify staff immediately.
[2024-02-23 15:55] VITALS: BP 104/69; PULSE 60; TEMP 37.1; O2SAT 98
--- NOTE | 2024-02-23 16:13 | PC.NURSE ---
1555 infusion completed no s/s of reaction
== END 2024-02-23 16:30 | disposition home or self-care (01) ==
LOC: INF 07:40
PROVIDERS: PCP Family Medicine; Visit Provider Obstetrics & Gynecology
DX: M05.10 Rheumatoid lung disease with rheumatoid arthritis of unspecified site (principal); M05.89 Other rheumatoid arthritis with rheumatoid factor of multiple sites
CPT/HCPCS: 71250; 96365; Q0249

== ENCOUNTER 2024-02-23 14:02 | Outpatient (OUT) | payer MEDICARE, OTHER, SELFPAY ==
--- NOTE | 2024-02-23 14:04 | CT_ITS ---
[address] [address] Patient Name: CHUCKY DUNLAP MRN: [id number] date: 1955 Sex: F Assigned Patient Location: CT Current Patient Location: Accession/Order Number: [id number] Exam Date: 02/23/2024 14:10 Report Date: 02/25/2024 06:27 At the request of: ZOE LATIF Procedure: CT chest wo con EXAMINATION: CT chest wo con HISTORY: Rheumatoid Lung Disease M05.10 ; follow-up lesions in lung bases COMPARISON: CT chest 08/16/2023 TECHNIQUE: Multi-planar CT images were obtained without and/or with IV contrast as indicated by examination type. Axial, Coronal, and Sagittal images. Dose reduction techniques were achieved by using automated exposure control and/or adjustment of mA and/or kV according to patient size and/or use of iterative reconstruction technique. FINDINGS: LUNGS: Tiny patchy opacities within peripheral lung regions at sites of previously seen small cavitary lesions. PLEURA: No mass, effusion, or pneumothorax. VASCULATURE: No abnormality. KAREEM: No mass or adenopathy. MEDIASTINUM: No mass or adenopathy. CARDIAC: No enlargement, pericardial thickening, or significant calcification. CORONARY ARTERIES: Suspect prior bypass. AORTA: No aneurysm or dissection. CHEST WALL: No mass or axillary adenopathy. BONES: No bone lesion or fracture. LIMITED ABDOMEN: No suspicious findings Limited images of the upper abdomen. OTHER: Negative. CT/CT chest wo con IMPRESSION: 1. Interval regression of the previously seen numerous peripheral small cavitary lesions, now representing small residual patchy opacities/scarring. Consider follow-up CT chest in 6 months to document continued clearing/resolution. Electronically authenticated by: BRIAN RODRIGUEZ Date: 02/25/2024 06:27
== END 2024-02-23 14:03 | disposition home or self-care (01) ==
LOC: CT 14:02
PROVIDERS: PCP Family Medicine; Visit Provider Internal Medicine
DX: M05.10 Rheumatoid lung disease with rheumatoid arthritis of unspecified site (principal)
CPT/HCPCS: 71250

== ENCOUNTER 2024-04-04 07:37 | Outpatient (RCR) | payer MEDICARE, OTHER, SELFPAY ==
[2024-04-04 09:55] VITALS: BP 145/83; PULSE 76; TEMP 36.4; O2SAT 96
[2024-04-04 10:32] LABS: Basophils Absolute Auto 0.1 10^3/uL (0.0-0.1); Basophils Percent Auto 0.8 % (0.2-2.0); Eosinophils Absolute Auto 0.6 10^3/uL (0.0-0.7); Eosinophils Percent Auto 4.3 % (0.9-7.0); Hematocrit 35.4 % (36.0-48.0); Hemoglobin 11.4 g/dL (12.0-16.0); Immature Granulocytes Abs Auto 0.04 10^3/uL (0.00-0.03); Immature Granulocytes Pct Auto 0.3 % (0.0-0.5); Lymphocytes Absolute Auto 1.8 10^3/uL (1.2-3.8); Lymphocytes Percent Auto 12.2 % (20.5-60.0); Mean Corpuscular HGB Conc 32.2 g/dL (29.9-35.2); Mean Corpuscular Hemoglobin 31.1 pg (26.7-34.0); Mean Corpuscular Volume 96.5 fL (81.0-99.0); Mean Platelet Volume 11.9 fL (9.5-13.5); Monocytes Percent Auto 6.8 % (1.7-12.0); Neutrophils Percent Auto 75.6 % (43.0-75.0); Platelet Count 265 10^3/uL (150-450); Red Blood Count 3.67 10^6/uL (4.20-5.40); Red Cell Distribution Width 13.2 % (11.0-15.0); White Blood Count 14.6 10^3/uL (4.0-11.0)
[2024-04-04 10:46] LABS: Alanine Aminotransferase 24 U/L (14-59); Albumin Globulin Ratio 0.7; Alkaline Phosphatase 80 U/L (46-116); Aspartate Amino Transferase 10 U/L (15-37); Bilirubin Direct 0.1 mg/dL (0.0-0.2); Bilirubin Total 0.5 mg/dL (0.2-1.0); Chol HDL Ratio 5.5; Cholesterol 205 mg/dL (<=200); Globulin 4.3 g/dL; HDL Cholesterol 37 mg/dL (40-60); Total Protein 7.3 g/dL (6.4-8.2); Triglycerides 157 mg/dL (<=150); VLDL CHOLESTEROL 31.4 mg/dL
--- NOTE | 2024-04-04 11:42 | PC.NURSE ---
0955: Pt. to [facility] amb. Weight obtained and called to pharmacy. Seated in recliner. VSS. Relays decrease in RA flares since first infusion. IV started in left forearm, see documentation. Blood drawn off IV for labs. Pt. tolerated without c/o. Pt. drinking water from home. Declines snack.
--- NOTE | 2024-04-04 11:46 | PC.NURSE ---
1028: IV Actemra initiated at this time. Pt. denies needs. 1045: Pt. without changes. Relays comfort.
--- NOTE | 2024-04-04 11:51 | PC.NURSE ---
1133: Infusion completed at this time without s&s of adverse reaction. IV d/c'd pressure to site. Pt. d/c'd amb. to home.
== END 2024-04-14 23:59 | disposition home or self-care (01) ==
LOC: INF 07:37
DX: M05.89 Other rheumatoid arthritis with rheumatoid factor of multiple sites (principal)
CPT/HCPCS: 36415; 80061; 80076; 85025; 96365; Q0249

== ENCOUNTER 2024-05-02 08:04 | Outpatient (RCR) | payer MEDICARE, OTHER, SELFPAY ==
[2024-05-02 10:00] VITALS: BP 154/70; PULSE 78; TEMP 37.2; O2SAT 97
[2024-05-02 11:03] LABS: Basophils Absolute Auto 0.1 10^3/uL (0.0-0.1); Basophils Percent Auto 0.8 % (0.2-2.0); Eosinophils Absolute Auto 0.3 10^3/uL (0.0-0.7); Eosinophils Percent Auto 3.9 % (0.9-7.0); Hematocrit 36.5 % (36.0-48.0); Hemoglobin 12.1 g/dL (12.0-16.0); Immature Granulocytes Abs Auto 0.02 10^3/uL (0.00-0.03); Immature Granulocytes Pct Auto 0.3 % (0.0-0.5); Lymphocytes Absolute Auto 3.5 10^3/uL (1.2-3.8); Lymphocytes Percent Auto 46.6 % (20.5-60.0); Mean Corpuscular HGB Conc 33.2 g/dL (29.9-35.2); Mean Corpuscular Hemoglobin 31.8 pg (26.7-34.0); Mean Corpuscular Volume 95.8 fL (81.0-99.0); Mean Platelet Volume 12.1 fL (9.5-13.5); Monocytes Absolute Auto 0.7 10^3/uL (0.3-0.8); Monocytes Percent Auto 9.8 % (1.7-12.0); Neutrophils Absolute Auto 2.9 10^3/uL (1.4-6.5); Neutrophils Percent Auto 38.6 % (43.0-75.0); Platelet Count 197 10^3/uL (150-450); Red Blood Count 3.81 10^6/uL (4.20-5.40); White Blood Count 7.4 10^3/uL (4.0-11.0)
--- NOTE | 2024-05-02 11:03 | PC.NURSE ---
1000: Pt. to [facility] amb. for infusion. Weight obtained. Seated in recliner. VSS. IV initiated, see documentation. Pt. tolerated without c/o. Drinking water, declines snack.
--- NOTE | 2024-05-02 11:09 | PC.NURSE ---
1020: IV Actemra initiated at this time. Pt. denies needs or c/o.
[2024-05-02 11:17] LABS: Erythrocyte Sedimentation Rate 100 mm/hr (<=30)
--- NOTE | 2024-05-02 11:18 | PC.NURSE ---
1117: Infusion completed without s&s of adverse reaction. IV d/c'd, pressure to site. D/c'd amb. to home.
[2024-05-02 11:20] LABS: Alanine Aminotransferase 23 U/L (14-59); Albumin Level 2.9 g/dL (3.4-5.0); C Reactive Protein 0.94 mg/dL (<=0.50); Estimated GFR (African America 50 (>=60); Estimated GFR (Non-African Ame 41 (>=60)
== END 2024-05-15 23:59 | disposition home or self-care (01) ==
LOC: INF 08:04
PROVIDERS: Visit Provider Internal Medicine Rheumatology
DX: M05.89 Other rheumatoid arthritis with rheumatoid factor of multiple sites (principal)
CPT/HCPCS: 82042; 82565; 84460; 85025; 85652; 86140; 96365; J3262

== ENCOUNTER 2024-05-19 12:29 | Emergency (ER) | payer MEDICARE, OTHER, SELFPAY ==
[2024-05-19 12:34] VITALS: BP 140/98; PULSE 88; TEMP 36.6; O2SAT 98; BMI 41.2
--- OUTSIDE RECORDS SUMMARY | 2024-05-19 12:39 | XMS_ITS | CCD ---
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 Reese Verduzco Primary Care Lisava dora Herrmann, Dr. Luke Lloyd Attending Lisava ilable Steven, Dr. Luke Lloyd Referring Lisava iledison Nixon, Dr. Reese Verduzco [facility] Lisava iledison Herrmann, Dr. Luke Lloyd Attending [facility] Akbar Primary Care Provider DO Salty Gonzalez Referring Provider MD Floresita Gonzalez Attending Provider [phone] House Reese KELLER Primary Care Provider LUKE HERRMANN Attending Unavailable HUSSAIN, REESE VERDUZCO Primary Care Unavailab le Flor[place]DO Leigh Primary Care Provider [phone] DO Salty Gonzalez Referring Provider [phone] MD Floresita Gonzalez Attending Provider [place], DO Leigh Primary Care Provider DO Salty Gonzalez Referring Provider MD Floresita Gonzalez Attending Provider [phone] HOUSE, REESE Good Primary Care Unavailable Ant Gregory MD Attending Unavailable HOUSE, REESE P Primary Care Unavailable HOUSE, REESE P Attending Unavailable HOUSE, REESE P Primary Care Unavailable Ant Gregory MD Attending Unavailable HOUSE, REESE Florentino Primary Care Unavailable Ant Gregory MD Attending Unavailable HOUSE, REESE P Primary Care Unavailable HOUSE, REESE P Attending Unavailable HOUSE, REESE P Primary Care Unavailable HOUSE, REESE P Primary Care Unavailable Floresita Gonzalez Admitting Unavailable Floresita Gonzalez Attending Unavailable Salty Gonzalez Referring Unavailable House, Reese Primary Care Unavailable Medications Current Medications Medication Drug Class(es) Dates Sig (Normalized) Sig (Original) acetaminophen 325 mg / oxyCODONE hydrochloride 5 mg oral tablet (20 sources) Opioid Agonist Start: 08-23-2021 take 1 tablet by mouth three times daily Oxycodone-Acetamin ophen (Percocet) 5-325 mg Tablet Active 1 TAB PO Three times daily August 23, 2021 1:00am atorvastatin 40 mg oral tablet (20 sources) HMG-CoA Reductase Inhibitor Start: 12-14-2021 take 80 mg by mouth once daily at bedtime Atorvastatin Active 80 MG PO Daily at bedtime December 14, 2021 1:00am Start: 10-28-2021 take 1 tablet by ivanna th once daily at bedtime atorvastatin (Lipitor) 40 mg tablet Take 1 tablet (40 mg) by mouth once daily at bedtime. 0 10/28/2021 Active Start: 08-27-2021 End: 12-14-2021 take 80 mg by mouth once daily in the evening Atorvastatin Discontinued 80 MG PO Every evening 30 30 August 27, 2021 1:00am December 14, 2021 3:17pm carvedilol 12.5 mg oral tablet (20 sources) alpha-Adrenergic Althea, beta-Adrenergic Althea Start: 10-12-2021 take 12.5 mg by mouth twice daily Carvedilol Active 12.5 MG PO Twice daily December 14, 2021 1:00am Start: 08-31-2021 take 1 tablet by ivanna [...] MG PO Every morning December 14, 2021 1:00am folic acid 1 mg oral tablet (2 sources) Start: 10-25-2023 take 1 mg by mouth once daily Folic Acid Active 1 MG PO Daily October 25, 2023 1:00am ibuprofen 600 mg oral tablet (8 sources) Nonsteroidal Anti-inflammatory Drug Start: 12-28-2021 Ibuprofen Active 600 MG PO EVERY 4-6 HOURS 04 08December 28, 2021 12:00am do not exceed 4 doses in a 24 hour period 3 ml insulin aspart protamine, human 70 unt/ml / insulin aspart, human 30 unt/ml pen injector (16 sources) Insulin Analog Start: 08-26-2021 Insulin Asp Prt-Insulin Aspart (Novolog Mix 70-30flexpen U-100) 100 unit/mL (70-30) insulin pen Active 34 UNIT SUBCUT Every morning August 26, 2021 1:00am Start: 08-26-2021 Insulin Asp Pr t-Insulin Aspart (Novolog Mix 70-30flexpen U- 100) 100 unit/mL (70-30) insulin pen Active 15 UNIT SUBCUT Every evening August 26, 2021 1:00am insulin aspart, human 100 un t/ml injectable [...] SUBCUT Daily at bedtime August 26, 2021 1:00am January 13, 2022 8:18am insulin degludec (Tresiba U-100 Insulin) 100 unit/mL injection Inject under the skin. 0 Active Tresiba 100 UNIT /ML Subcutaneous Solution INJECT SUBCUTANEOUSLY DIRECTED Quantity: 0 Refills: 0 Ordered: 30-Aug-2021 DO Active Insulin Degludec (Tresiba Flextouch U-100) 100 unit/mL (3 mL) Insulin Pen (5 sources) Start: 01-10-2022 Insulin Deglud ec (Tresiba [...] 112 MCG PO Daily August 23, 2021 1:00am 0.3 ml methotrexate 50 mg/ml auto-injector (2 sources) Folate Analog Metabolic Inhibitor Start: 10-25-2023 inject 15 mg by subcutaneous injection every week Methotrexate (Pf) Active 15 MG SUBCUT every week October 25, 2023 1:00am nitroglycerin 0.4 mg sublingual tablet (20 sources) Nitrate Vasodilator Start: 12-21-2021 nitroglycerin (Nitrostat) 0.[address] 1 TABLET UNDER THE TONGUE EVERY 5 MINUTES FOR UP TO 3 DOSES NEEDED FOR CHEST PAIN.CALL 911 IF PAIN PERSISTS. 0 12/21/2021 Active Start: 08-27-2021 Nitroglycerin Active 0.4 MG SUBLINGUAL Every 5 minutes x 3 doses August 27, 2021 1:00am predniSONE 10 mg oral tablet (10 sources) Start: 10-25-2023 take 10 mg by mouth once daily Prednisone Active 10 MG PO Daily October 25, 2023 1:00am Start: 12-14-2021 End: 07-24-2023 take 5 mg by mouth once daily Prednisone Discontinued 5 MG PO Daily December 14, 2021 1:00am July 24, 2023 12:04pm sacubitril 49 mg / valsartan 51 mg oral tablet (20 sources) Angiotensin 2 Receptor Althea Start: 08-31-2021 End: 08-09-2024 take 1 tablet by mouth twice daily Sacubitril-Valsartan (Entresto) 49-51 mg tablet Active 1 TAB PO Twice daily December 14, 2021 1:00am Start: 08-31-2021 take 1 tablet by ivanna twice daily Entresto 24-26 MG Oral Tablet TAKE 1 TABLET BY MOUTH TWICE A DAY Quantity: 180 Refills: 3 Ordered: 31-Aug-2021 Lkue Herrmann DO Start : 31-Aug-2021 Active spironolactone [...] MG PO Every morning December 14, 2021 1:00am December 28, 2021 8:15am Start: 10-12-2021 take 0.5 tablet by m outh once daily Spironolactone 25 MG Oral Tablet TAKE 0.5 TABLET Daily Quantity: 45 Refills: 3 Ordered: 12-Oct-2021 Salima Nguyễn Start : 12-Oct-2021 Active new start 20 ml tocilizumab 20 mg/ml injection (1 source) Interleukin-6 Receptor Antagonist Start: 04-29-2024 Tocilizumab (Actemra ) 400 mg/20 mL (20 mg/mL) solution Active 400 MG IV EVERY 4 WEEKS April 29, 2024 12:00am administer as a 1 hr infusion Completed/Discontinued Medications Medication Drug Class(es) Dates Sig (Normalized) Sig (Original) anastrozole 1 mg oral tablet (14 sources) Aromatase Inhibitor Start: 02-03-20 End: 04-04-20 take 1 mg by mouth once daily Anastrozole Discontinued 1 MG PO Daily February 02, 2022 12:00am April 04, 2022 11:47am aspirin 81 mg delayed release oral tablet (20 sources) Platelet Aggregation Inhibitor, Nonsteroidal Anti-inflammatory Drug Start: 08-27-20 End: 10-25-19 24 take 81 mg by mouth once daily Aspirin Discontinued 81 MG PO Daily December 14, 2021 3:19pm October 25, 2023 1:56pm colchicine 0.6 mg oral tablet (14 sources) Start: 08-27-20 End: 12-15-19 22 take 0.6 mg by mouth once daily Colchicine Discontinued 0.6 MG PO Daily August 27, 2021 1:00am December 14, 2021 3:17pm furosemide 20 mg oral tablet (3 sources) Loop Diuretic Start: 08-31-20 take 1 tablet by mouth once daily Furosemide 20 MG Oral Tablet TAKE 1 TABLET DAILY for 2 weeks Quantity: 14 Refills: 1 Ordered: 31-Aug-2021 Luke Herrmann DO Start : 31-Aug-2021 Active call for refills hydroCHLOROthiazide 12.5 mg / olmesartan medoxomil 40 mg oral tablet (8 sources) Thiazide Diuretic, Angiotensin 2 Receptor Althea Start: 08-26-20 End: 08-27-20 take 1 tablet by mouth once daily Olmesartan-Hydrochlor othiazide Discontinued 1 TAB PO Daily August 26, 2021 1:00am August 27, 2021 3:52pm hydroxychloroquine sulfate 200 mg oral tablet (8 sources) Antimalarial, Antirheumatic Agent Start: 12-15-19 End: 10-25-19 24 take 200 mg by mouth once daily in the morning Hydroxychloroquine Discontinued 200 MG PO Every morning December 14, 2021 1:00am October 25, 2023 1:56pm 3 ml insulin lispro 100 unt/ml pen injector (8 sources) Insulin Analog Start: 08-23-20 End: 08-26-20 Insulin Lispro (Humalog Kwikpen Insulin) 100 unit/mL Insulin Pen Discontinued SUBCUT August 23, 2021 1:00am August 26, 2021 3:22pm leflunomide 20 mg oral tablet (14 sources) Antirheumatic Agent Start: 08-23-20 End: 10-25-19 24 take 20 mg by mouth once daily Leflunomide Discontinued 20 MG PO Daily August 23, 2021 1:00am October 25, 2023 1:59pm letrozole 2.5 mg oral tablet (9 sources) Aromatase Inhibitor Start: 04-20-20 End: 08-01-20 take 2.5 mg by mouth once daily Letrozole Discontinued 2.5 MG PO Daily July 25, 2023 2:23pm August 01, 2023 8:19am methylPREDNISolone 4 mg oral tablet (2 sources) Corticosteroid Start: 07-24-20 End: 10-25-19 take 1 tablet by mouth once daily Methylprednisolone (Medrol (Hussain)) 4 mg Tablets,Dose Pack Discontinued 4 MG PO Daily July 24, 2023 12:00am October 25, 2023 1:57pm mometasone furoate 1 mg/ml topical cream (6 sources) Corticosteroid Start: 02-03-20 End: 10-25-19 Mometasone Discontinued 1 APPLIC TOPICAL Daily February 02, 2022 12:00am October 25, 2023 1:56pm nystatin 100 unt/mg topical powder (10 sources) Polyene Antifungal Start: 10-13-20 End: 10-25-19 Nystatin (Nystop) 100,000 unit/gram Powder Discontinued 1 APPLIC TOPICAL Twice daily October 13, 2022 9:55am October 25, 2023 1:57pm dispense one bottle olmesartan medoxomil 40 mg oral tablet (8 sources) Angiotensin 2 Receptor Althea Start: 08-23-20 End: 08-26-20 take 1 tablet by mouth once daily Olmesartan (Benicar) 40 mg Tablet Discontinued 40 MG PO Daily August 23, 2021 1:00am August 26, 2021 3:24pm prednisoLONE 5 mg oral tablet (13 sources) Corticosteroid take 1 tablet by mouth once daily prednisoLONE 5 MG Oral Tablet Take 1 tablet daily Quantity: 0 Refills: 0 Ordered: 28-Oct-2021 DO Active ticagrelor 90 mg oral tablet (10 sources) Start: 08-27-20 End: 12-15-19 take 1 tablet by mouth twice daily Ticagrelor (Brilinta) 90 mg Tablet Discontinued 90 MG PO Twice daily 180 90 August 27, 2021 1:00am December 14, 2021 3:19pm Problems Active Problems Problem Classification Problem Date Documented Da te Episodic/Chronic Acute myocardial infarction (20 sources) Myocardial infarction; Translations: [Acute myocardial infarction of unspecified site, episode of care unspecified] 08-23-2021 Chronic Cancer of breast (20 sources) Malignant tumor of breast ; Translations: [Malignant neoplasm of unspecified site of left female breast] Onset: 04-29-2024 01-12-2022 Chronic Coronary atherosclerosis and other heart [...] essential hypertension] Onset: 12-28-2021 01-12-2022 Chronic Mycoses (8 sources) Candidiasis of skin; Translations: [Candidiasis of skin and nail] 10-13-2022 Episodic Osteoarthritis (4 sources) Unspecified osteoarthritis, unspecified site; Translations: [UNSPECIFIED OSTEOARTHRITIS UNS SITE] Onset: 01-26-2022 Chronic Other aftercare (6 sources) Prophylactic aromatase inhibitors given; Translations: [correction (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 aromatase inhibitors] 02-03-2022 Episodic Other aftercare (5 sources) buttermaker (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 aromatase inhibitors; Translations: [Use of aromatase inhibitors] 10-13-2022 Episodic Other aftercare (1 source) Other snf (current) drug therapy; Translations: [OTH REPAIRER HAIRSPRING CURRENT DRUG THERAPY] Onset: 11-14-2022 Episodic Other bone disease and musculoskeletal deformities (6 sources) Osteopenia; Translations: [Other specified disorders of bone density and structure, unspecified site] 02-03-2022 Episodic Other bone disease and musculoskeletal deformities (5 sources) Other specified disorders of bone density and structure, unspecified site; Translations: [Disorder of bone and cartilage, unspecified] 10-13-2022 Episodic Other lower respiratory disease (7 sources) Multiple nodules of lung; Translations: [Other nonspecific abnormal finding of lung field] 01-13-2022 Episodic Other lower respiratory disease (10 sources) Other nonspecific abnormal finding of lung [...] conditions (not mental disorders or infectious disease) (13 sources) Head scan abnormal; Translations: [Abnormal brain scan] 01-13-2022 Episodic Rheumatoid arthritis and related disease (20 sources) Rheumatoid arthritis; Translations: [Rheumatoid arthritis] Onset: 06-16-2022 Chronic Thyroid disorders (20 sources) Hypothyroidism; Translations: [Unspecified acquired hypothyroidism] Onset: 08-09-2023 08-09-2023 Chronic Past or Other Problems Problem Classification Problem Date Documented Da te Episodic/Chronic Abdominal pain (4 sources) Right upper quadrant pain; Translations: [RIGHT UPPER QUADRANT PAIN] Onset: 04-30-2022 Episodic Unclassified (20 sources) Never smoked tobacco; Translations: [Never a smoker] Unclassified (1 source) Onset: 08-10-2023 08-10-2023 Results Test Name Value Interpretation Reference Range Facility Outside [facility] 05-01-2024 Outside Records [id number] [facility] Outside Records [id number] [facility] 01-22-2024 Outside Records [id number] [facility] 01-02-2024 Outside Records [id number] [facility] on 12-11-2023 Rad - Other Radiology Report [id number] [facility] BI w/CAD on 12-04-2023 MM diagnostic mammo BI w/CAD [facility] [place] [address] Mammography Report Signed Patient: Chucky Dunlap MR#: [id number] : 1955 Acct:[id number] Age/Sex: 67 / F ADM Date: 12/04/23 Loc: Room: Type: [facility] Attending Dr: Floresita Gonzalez MD Copies to: Floresita Gonzalez MD [facility] Sal[facility] DO Ordering Provider: Floresita Gonzalez MD Date [...] Vito Thomas M.D.12/04/2023 2:47 PM Dictation Location: [facility] Transcribed By: ANIL 12/04/23 1447 Dictated By: Vito Thomas II, MD 12/04/23 1441 Signed By: 12/04/23 1447 Normal [facility] Controlled Substances Agreem entson 11-01-2023 Controlled Substances Agreements [id number] [facility] 10-31-2023 Outside Records [id number] 841[facility] 10-04-2023 Outside Records [id number] 782[facility] 09-19-2023 Outside Records [id number] 875[facility] 08-30-2023 Outside Records [id number] [facility] Provided [facility] Data on 08-03-2023 Patient Provided Health Data [id number] [facility] 07-14-2023 Patient Handout [id number] 92#1.00[facility] CBC AUTO DIFFon 11-12-2022 BASO # 0.1 103/ul Normal 0.0-0.1 [facility] Comment on above: Performed By: #### C BC #### [facility] [address] [place] [address] Dr. Jessica Saravia Basophils/100 WBC (Bld) 1.4 % Normal 0.2-2.0 [facility] Comment on above: Performed By: #### C BC #### [facility] [address] [place] [address] Dr. Jessica Saravia EO # 0.4 103/ul Normal 0.0-0.7 [facility] Comment on above: Performed By: #### C BC #### [facility] [address] [place] [address] Dr. Jessica Saravia Eosinophils/100 WBC (Bld) 6.1 % Normal 0.9-7.0 [facility] Comment on above: Performed By: #### C BC #### [facility] [address] [place] [address] Dr. Jessica Saravia Erythrocyte distribution width (RBC) [Ratio] 14.9 % Normal 11.0-15.0 [facility] Comment on above: Performed By: #### C BC #### [facility] [address] [place] [address] Dr. Jessica Saravia Hematocrit (Bld) [Volume fraction] 34.7 % Critically low 36.0-48.0 [facility] Comment on above: Performed By: #### C BC #### [facility] [address] [place] [address] Dr. Jessica Saravia Hemoglobin (Bld) [Mass/Vol] 11.3 g/dL Critically low 12.0-16.0 [facility] Comment on above: Performed By: #### C BC #### [facility] [address] [place] [address] Dr. Jessica Saravia IG # 0.03 10e3/ul Normal 0.00-0.03 [facility] Comment on above: Performed By: #### C BC #### [facility] [address] [place] [address] Dr. Jessica Saravia IG % 0.4 % Normal 0.0-0.5 [facility] Comment on above: Performed By: #### C BC #### [facility] [address] [place] [address] Dr. Jessica Saravia LYMPH # 1.4 103/ul Normal 1.2-3.8 [facility] Comment on above: Performed By: #### C BC #### [facility] [address] [place] [address] Dr. Jessica Saravia Lymphocytes/100 WBC (Bld) 20.4 % Critically low 20.5-60.0 [facility] Comment on above: Performed By: #### C BC #### [facility] [address] [place] [address] Dr. Jessica Saravia MANUAL DIFF REQ NO Normal [facility] Comment on above: Performed By: #### C BC #### [facility] [address] [place] [address] Dr. Jessica Saravia MCH (RBC) [Entitic mass] 27.5 pg Normal 26.7-34.0 [facility] Comment on above: Performed By: #### C BC #### [facility] [address] [place] [address] Dr. Jessica Saravia MCHC (RBC) [Mass/Vol] 32.6 g/dL Normal 29.9-35.2 [facility] Comment on above: Performed By: #### C BC #### [facility] [address] [place] [address] Dr. Jessica Saravia MCV (RBC) [Entitic vol] 84.4 fL Normal 81.0-99.0 [facility] Comment on above: Performed By: #### C BC #### [facility] [address] [place] [address] Dr. Jessica Saravia MONO # 0.8 103/ul Normal 0.3-0.8 [facility] Comment on above: Performed By: #### C BC #### [facility] [address] [address] [address] Jessica Saravia Monocytes/100 WBC (Bld) 12.1 % Critically high 1.7-12. 0 [facility] Comment on above: Performed By: #### C BC #### [facility] [address] [address] [address] Jessica Saravia NEUT # 4.1 103/ul Normal 1.4-6.5 [facility] Comment on above: Performed By: #### C BC #### [facility] [address] [address] [address] Jessica Saravia Neutrophils/100 WBC (Bld) 59.6 % Normal 43.0-75.0 [facility] Comment on above: Performed By: #### C BC #### [facility] [address] [place] [address] Dr. Jessica Saravia Platelet mean volume (Bld) [Entitic vol] 11.0 fL Normal 9.5-13.5 [facility] Comment on above: Performed By: #### C BC #### [facility] [address] [place] [address] Dr. Jessica Saravia PLT 236 103/ul Normal 150-450 [facility] Comment on above: Performed By: #### C BC #### [facility] [address] [place] [address] Dr. Jessica Saravia RBC 4.11 106/ul Critically low 4.20-5.40 [facility] Comment on above: Performed By: #### C BC #### [facility] [address] [place] [address] Dr. Jessica Saravia WBC 6.9 103/ul Normal 4.0-11.0 [facility] Comment on above: Performed By: #### C BC #### [facility] [address] [place] [address] Dr. Jessica Saravia CREATININEon 11-12-2022 Creatinine [Mass/Vol] 0.85 mg/dL Normal 0.55-1.02 [facility] Comment on above: Performed By: #### L IVER #### [facility] [address] [address] [address] Jessica Saravia EGFR-AF TURKMEN >60 Normal >=60 [facility] Comment on above: Performed By: #### L IVER #### [facility] [address] [address] [address] Jessica Saravia EGFR-NON AF TURKMEN >60 Normal >=60 [facility] Comment on above: Performed By: #### L IVER #### [facility] [address] [address] [address] Jessica Saravia LIPID PROFILEon 11-12-2022 CHOL-HDL RATIO NORM SEE BELOW Normal [facility] Comment on above: Result Comment: 3.3 - 4.4 LOW RISK 4.4 - 7.1 AVERAGE RISK 7.1 - 11.0 MODERATE RISK >11.0 HIGH RISK Performed By: #### C BC #### [facility] [address] [place] [address] Dr. Jessica Saravia Cholesterol [Mass/Vol] 171 mg/dL Normal <=200 [facility] Comment on above: Performed By: #### C BC #### [facility] [address] [place] [address] Dr. Jessica Saravia Cholesterol in HDL [Mass/Vol] 33 mg/dL Critically low 40-60 [facility] Comment on above: Performed By: #### C BC #### [facility] [address] [address] [address] Jessica Saravia Cholesterol in LDL [Mass/Vol] 108.2 mg/dL Normal [facility] Comment on above: Performed By: #### C BC #### [facility] [address] [address] [address] Jessica Saravia Cholesterol.total/Cindy sterol in HDL [Mass ratio] 5.2 {ratio} Normal [facility] Comment on above: Performed By: #### C BC #### [facility] [address] [address] [address] Jessica Saravia HDL NORMAL > or = 60 mg/dl - LOW CARDIOVASCULAR RISK <40 mg/dl - HIGH CARDIOVASCULAR RISK Normal [facility] Comment on above: Performed By: #### C BC #### [facility] [address] [address] [address] Jessica Saravia LDL CALC NORMAL SEE BELOW Normal [facility] Comment on above: Result Comment: <100 mg/dl OPTIMAL 100 - 129 mg/dl NEAR OR ABOVE OPTIMAL 130 - 159 mg/dl BORDERLINE HIGH 160 - 189 mg/dl HIGH >190 mg/dl VERY HIGH Performed By: #### C BC #### [facility] [address] [address] [address] Jessica Saravia Triglyceride [Mass/Vol] 149 mg/dL Normal <=150 [facility] Comment on above: Performed By: #### C BC #### [facility] [address] [place] [address] Dr. Jessica Saravia VLDL CALC 29.8 mg/dL Normal [facility] Comment on above: Performed By: #### C BC #### [facility] [address] [address] [address] Jessica Saravia LIVER PROFILEon 11-12-2022 Albumin [Mass/Vol] 2.8 g/dL Critically low 3.4-5.0 [facility] Comment on above: Performed By: #### L IVER #### [facility] [address] [place] [address] Dr. Jessica Saravia Albumin/Globulin [Mass ratio] 0.7 {ratio} Normal [facility] Comment on above: Performed By: #### L IVER #### [facility] [address] [place] [address] Dr. Jessica Saravia ALP [Catalytic activity/Vol] 159 U/L Critically high 46-116 [facility] Comment on above: Performed By: #### L IVER #### [facility] [address] [place] [address] Dr. Jessica Saravia ALT [Catalytic activity/Vol] 37 U/L Normal 14-59 [facility] Comment on above: Performed By: #### L IVER #### [facility] [address] [place] [address] Dr. Jessica Saravia AST [Catalytic activity/Vol] 24 U/L Normal 15-37 [facility] Comment on above: Performed By: #### L IVER #### [facility] [address] [address] [address] Jessica Saravia BILI, CONJUGATED 0.1 mg/dL Normal 0.0-0.2 [facility] Comment on above: Performed By: #### L IVER #### [facility] [id number] Jessica Saravia Bilirubin [Mass/Vol] 0.4 mg/dL Normal 0.2-1.0 [facility] Comment on above: Performed By: #### L IVER #### [facility] [address] [place] [address] Dr. Jessica Saravia Globulin (S) [Mass/Vol] 4.2 g/dL Normal T [facility] Comment on above: Performed By: #### L IVER #### [facility] [address] [address] [address] Jessica Saravia Protein [Mass/Vol] 7.0 g/dL Normal 6.4-8.2 [facility] Comment on above: Performed By: #### L IVER #### [facility] [address] [place] [address] Dr. Jessica Saravia SED RATE [facility] 2022 SED RATE 80 mm/hr Critically high <=30 [facility] Comment on above: Performed By: #### C BC #### [facility] [address] [place] [address] Dr. Jessica Saravia Tobacco Screening.on 023 Adult depression screening assessment No [facility] DO Work Phone: Fall risk assessment a) No falls within the last year [facility] 250 DO Work Phone: Tobacco use status [facility] b) No [facility] 250 DO Work Phone: CT CHEST WO [...] by: ISAAC JONES Date: 2022-08-30 09:[address] [facility] [address] CHEST WO CONon 06-24-2022 CT CHEST [...] and mammography follow-up is recommended. Normal [facility] CBC AUTO DIFFon 06-16-2022 BASO # 0.1 103/ul Normal 0.0-0.1 [facility] Comment on above: Performed By: #### C BC #### [facility] [address] [place] [address] Dr. Jessica Saravia Basophils/100 WBC (Bld) 1.0 % Normal 0.2-2.0 [facility] Comment on above: Performed By: #### C BC #### [facility] [address] [place] [address] Dr. Jessica Saravia EO # 0.4 103/ul Normal 0.0-0.7 [facility] Comment on above: Performed By: #### C BC #### [facility] [address] [place] [address] Dr. Jessica Saravia Eosinophils/100 WBC (Bld) 5.1 % Normal 0.9-7.0 [facility] Comment on above: Performed By: #### C BC #### [facility] [address] [place] [address] Dr. Jessica Saravia Erythrocyte distribution width (RBC) [Ratio] 16.6 % Critically high 11.0-15.0 [facility] Comment on above: Performed By: #### C BC #### [facility] [address] [place] [address] Dr. Jessica Saravia Hematocrit (Bld) [Volume fraction] 34.1 % Critically low 36.0-48.0 [facility] Comment on above: Performed By: #### C BC #### [facility] [address] [place] [address] Dr. Jessica Saravia Hemoglobin (Bld) [Mass/Vol] 10.6 g/dL Critically low 12.0-16.0 [facility] Comment on above: Performed By: #### C BC #### [facility] [address] [place] [address] Dr. Jessica Saravia IG # 0.02 10e3/ul Normal 0.00-0.03 [facility] Comment on above: Performed By: #### C BC #### [facility] [address] [place] [address] Dr. Jessica Saravia IG % 0.3 % Normal 0.0-0.5 [facility] Comment on above: Performed By: #### C BC #### [facility] [address] [place] [address] Dr. Jessica Saravia LYMPH # 1.4 103/ul Normal 1.2-3.8 [facility] Comment on above: Performed By: #### C BC #### [facility] [address] [place] [address] Dr. Jessica Saravia Lymphocytes/100 WBC (Bld) 19.6 % Critically low 20.5-60.0 [facility] Comment on above: Performed By: #### C BC #### [facility] [address] [place] [address] Dr. Jessica Saravia MANUAL DIFF REQ NO Normal [facility] Comment on above: Performed By: #### C BC #### [facility] [address] [place] [address] Dr. Jessica Saravia MCH (RBC) [Entitic mass] 27.9 pg Normal 26.7-34.0 [facility] Comment on above: Performed By: #### C BC #### [facility] [address] [address] [address] Jessica Saravia MCHC (RBC) [Mass/Vol] 31.1 g/dL Normal 29.9-35.2 [facility] Comment on above: Performed By: #### C BC #### [facility] [address] [place] [address] Dr. Jessica Saravia MCV (RBC) [Entitic vol] 89.7 fL Normal 81.0-99.0 [facility] Comment on above: Performed By: #### C BC #### [facility] [address] [place] [address] Dr. Jessica Saravia MONO # 1.0 103/ul Critically high 0.3-0.8 [facility] Comment on above: Performed By: #### C BC #### [facility] [address] [place] [address] Dr. Jessica Saravia Monocytes/100 WBC (Bld) 14.2 % Critically high 1.7-12. 0 [facility] Comment on above: Performed By: #### C BC #### [facility] [address] [place] [address] Dr. Jessica Saravia NEUT # 4.3 103/ul Normal 1.4-6.5 [facility] Comment on above: Performed By: #### C BC #### [facility] [address] [place] [address] Dr. Jessica Saravia Neutrophils/100 WBC (Bld) 59.8 % Normal 43.0-75.0 [facility] Comment on above: Performed By: #### C BC #### [facility] [address] [place] [address] Dr. Jessica Saravia Platelet mean volume (Bld) [Entitic vol] 11.9 fL Normal 9.5-13.5 [facility] Comment on above: Performed By: #### C BC #### [facility] [address] [place] [address] Dr. Jessica Saravia PLT 235 103/ul Normal 150-450 [facility] Comment on above: Performed By: #### C BC #### [facility] [address] [place] [address] Dr. Jessica Saravia RBC 3.80 106/ul Critically low 4.20-5.40 [facility] Comment on above: Performed By: #### C BC #### [facility] [address] [place] [address] Dr. Jessica Saravia WBC 7.3 103/ul Normal 4.0-11.0 [facility] Comment on above: Performed By: #### C BC #### [facility] [address] [place] [address] Dr. Jessica Saravia CREATININEon 06-16-2022 Creatinine [Mass/Vol] 1.06 mg/dL Critically high 0.55-1.02 [facility] Comment on above: Performed By: #### ARGENIS RODAS #### [facility] [address] [place] [address] Dr. Jessica Saravia EGFR-AF TURKMEN >60 Normal >=60 [facility] Comment on above: Performed By: #### ARGENIS RODAS #### [facility] [address] [place] [address] Dr. Jessica Saravia EGFR-NON AF TURKMEN 52 mL/min/1.73m2 Critically low >=60 [facility] Comment on above: Performed By: #### ARGENIS RODAS #### [facility] [address] [place] [address] Dr. Jessica Saravia LIVER PROFILEon 06-16-2022 Albumin [Mass/Vol] 2.8 g/dL Critically low 3.4-5.0 [facility] Comment on above: Performed By: #### ARGENIS RODAS #### [facility] [address] [place] [address] Dr. Jessica Saravia Albumin/Globulin [Mass ratio] 0.7 {ratio} Normal [facility] Comment on above: Performed By: #### ARGENIS RODAS #### [facility] [address] [place] [address] Dr. Jessica Saravia ALP [Catalytic activity/Vol] 112 U/L Normal 46-116 [facility] Comment on above: Performed By: #### ARGENIS RODAS #### [facility] [address] [place] [address] Dr. Jessica Saravia ALT [Catalytic activity/Vol] 19 U/L Normal 14-59 [facility] Comment on above: Performed By: #### NATHANIEL RODASA #### [facility] [address] [place] [address] Dr. Jessica Saravia AST [Catalytic activity/Vol] 16 U/L Normal 15-37 [facility] Comment on above: Performed By: #### ARGENIS RODAS #### [facility] [address] [place] [address] Dr. Jessica Saravia BILI, CONJUGATED 0.1 mg/dL Normal 0.0-0.2 [facility] Comment on above: Performed By: #### ARGENIS RODAS #### [facility] [address] [place] [address] Dr. Jessica Saravia Bilirubin [Mass/Vol] 0.3 mg/dL Normal 0.2-1.0 [facility] Comment on above: Performed By: #### ARGENIS RODAS #### [facility] [address] [place] [address] Dr. Jessica Saravia Globulin (S) [Mass/Vol] 4.1 g/dL Normal T [facility] Comment on above: Performed By: #### ARGENIS RODAS #### [facility] [address] [place] [address] Dr. Jessica Saravia Protein [Mass/Vol] 6.9 g/dL Normal 6.4-8.2 [facility] Comment on above: Performed By: #### ARGENIS RODAS #### [facility] [address] [place] [address] Dr. Jessica Saravia SED RATE [facility] 2021 SED RATE 82 mm/hr Critically high <=30 [facility] Comment on above: Performed By: #### S EDR #### [facility] [address] [place] [address] Dr. Jessica Saravia US SINGLE QUAD RT [...] ISAAC JONES Date: 2022-05-01 09:07 Normal [facility] CBC AUTO DIFFon 03-21-2022 BASO # 0.1 103/ul Normal 0.0-0.1 [facility] Comment on above: Performed By: #### C BC #### [facility] [address] [place] [address] Dr. Jessica Saravia Basophils/100 WBC (Bld) 1.3 % Normal 0.2-2.0 [facility] Comment on above: Performed By: #### C BC #### [facility] [address] [place] [address] Dr. Jessica Saravia EO # 0.4 103/ul Normal 0.0-0.7 [facility] Comment on above: Performed By: #### C BC #### [facility] [address] [place] [address] Dr. Jessica Saravia Eosinophils/100 WBC (Bld) 5.4 % Normal 0.9-7.0 [facility] Comment on above: Performed By: #### C BC #### [facility] [address] [place] [address] Dr. Jessica Saravia Erythrocyte distribution width (RBC) [Ratio] 17.3 % Critically high 11.0-15.0 [facility] Comment on above: Performed By: #### C BC #### [facility] [address] [place] [address] Dr. Jessica Saravia Hematocrit (Bld) [Volume fraction] 36.4 % Normal 36.0-48.0 [facility] Comment on above: Performed By: #### C BC #### [facility] [address] [place] [address] Dr. Jessica Saravia Hemoglobin (Bld) [Mass/Vol] 10.5 g/dL Critically low 12.0-16.0 [facility] Comment on above: Performed By: #### C BC #### [facility] [address] [place] [address] Dr. Jessica Saravia IG # 0.02 10e3/ul Normal 0.00-0.03 [facility] Comment on above: Performed By: #### C BC #### [facility] [address] [place] [address] Dr. Jessica Saravia IG % 0.3 % Normal 0.0-0.5 [facility] Comment on above: Performed By: #### C BC #### [facility] [address] [place] [address] Dr. Jessica Saravia LYMPH # 1.2 103/ul Normal 1.2-3.8 [facility] Comment on above: Performed By: #### C BC #### [facility] [address] [place] [address] Dr. Jessica Saravia Lymphocytes/100 WBC (Bld) 16.3 % Critically low 20.5-60.0 [facility] Comment on above: Performed By: #### C BC #### [facility] [address] [place] [address] Dr. Jessica Saravia MANUAL DIFF REQ NO Normal [facility] Comment on above: Performed By: #### C BC #### [facility] [address] [place] [address] Dr. Jessica Saravia MCH (RBC) [Entitic mass] 25.1 pg Critically low 26.7-34.0 [facility] Comment on above: Performed By: #### C BC #### [facility] [address] [place] [address] Dr. Jessica Saravia MCHC (RBC) [Mass/Vol] 28.8 g/dL Critically low 29.9-35.2 [facility] Comment on above: Result Comment: hypo chromic Performed By: #### C BC #### [facility] [address] [place] [address] Dr. Jessica Saravia MCV (RBC) [Entitic vol] 87.1 fL Normal 81.0-99.0 [facility] Comment on above: Performed By: #### C BC #### [facility] [address] [place] [address] Dr. Jessica Saravia MONO # 0.9 103/ul Critically high 0.3-0.8 [facility] Comment on above: Performed By: #### C BC #### [facility] [address] [place] [address] Dr. Jessica Saravia Monocytes/100 WBC (Bld) 12.0 % Normal 1.7-12.0 [facility] Comment on above: Performed By: #### C BC #### [facility] [address] [place] [address] Dr. Jessica Saravia NEUT # 4.7 103/ul Normal 1.4-6.5 [facility] Comment on above: Performed By: #### C BC #### [facility] [address] [place] [address] Dr. Jessica Saravia Neutrophils/100 WBC (Bld) 64.7 % Normal 43.0-75.0 [facility] Comment on above: Performed By: #### C BC #### [facility] [address] [place] [address] Dr. Jessica Saravia Platelet mean volume (Bld) [Entitic vol] 12.3 fL Normal 9.5-13.5 [facility] Comment on above: Performed By: #### C BC #### [facility] [address] [place] [address] Dr. Jessica Saravia PLT 284 103/ul Normal 150-450 [facility] Comment on above: Performed By: #### C BC #### [facility] [address] [place] [address] Dr. Jessica Saravia RBC 4.18 106/ul Critically low 4.20-5.40 [facility] Comment on above: Performed By: #### C BC #### [facility] [address] [place] [address] Dr. Jessica Saravia WBC 7.2 103/ul Normal 4.0-11.0 [facility] Comment on above: Performed By: #### C BC #### [facility] [address] [place] [address] Dr. Jessica Saravia CREATININEon 03-21-2022 Creatinine [Mass/Vol] 1.05 mg/dL Critically high 0.55-1.02 [facility] Comment on above: Performed By: #### L IVER #### [facility] [address] [place] [address] Dr. Jessica Saravia EGFR-AF TURKMEN >60 Normal >=60 [facility] Comment on above: Performed By: #### L IVER #### [facility] [address] [place] [address] Dr. Jessica Saravia EGFR-NON AF TURKMEN 53 mL/min/1.73m2 Critically low >=60 [facility] Comment on above: Performed By: #### L IVER #### [facility] [address] [place] [address] Dr. Jessica Saravia LIVER PROFILEon 03-21-2022 Albumin [Mass/Vol] 2.9 g/dL Critically low 3.4-5.0 [facility] Comment on above: Performed By: #### L IVER #### [facility] [address] [place] [address] Dr. Jessica Saravia Albumin/Globulin [Mass ratio] 0.7 {ratio} Normal [facility] Comment on above: Performed By: #### L IVER #### [facility] [address] [place] [address] Dr. Jessica Saravia ALP [Catalytic activity/Vol] 86 U/L Normal 46-116 [facility] Comment on above: Performed By: #### L IVER #### [facility] [address] [place] [address] Dr. Jessica Saravia ALT [Catalytic activity/Vol] 18 U/L Normal 14-59 [facility] Comment on above: Performed By: #### L IVER #### [facility] [address] [address] [address] Jessica Saravia AST [Catalytic activity/Vol] 13 U/L Critically low 15-37 [facility] Comment on above: Performed By: #### L IVER #### [facility] [address] [address] [address] Jessica Saravia BILI, CONJUGATED 0.1 mg/dL Normal 0.0-0.2 [facility] Comment on above: Performed By: #### L IVER #### [facility] [address] [address] [address] Jessica Saravia Bilirubin [Mass/Vol] 0.4 mg/dL Normal 0.2-1.0 [facility] Comment on above: Performed By: #### L IVER #### [facility] [address] [address] [address] Jessica Saravia Globulin (S) [Mass/Vol] 4.1 g/dL Normal T [facility] Comment on above: Performed By: #### L IVER #### [facility] [address] [address] [address] Jessica Saravia Protein [Mass/Vol] 7.0 g/dL Normal 6.4-8.2 [facility] Comment on above: Performed By: #### L IVER #### [facility] [address] [address] [address] Jessica Saravia SED RATE [facility] 2021 SED RATE 92 mm/hr Critically high <=30 [facility] Comment on above: Performed By: #### L IVER #### [facility] [address] [address] [address] Jessica Saravia Activated partial thrombopla stin time (aPTT) in platelet poor plasma by coagulation aOrdered By: Marcin Patel on 03-01-2022 aPTT Coag (PPP) [Time] 31.7 s 25.1-36.5 [facility] - CoagulationOrde red By: Marcin Patel on 03-01-2022 PT Coag (PPP) [Time] 13.1 s 9.0-12.9 [facility] Platelet poor plasma interna tional normalized ratio (INR) by coagulation assay (relatOrdered By: Marcin Patel on 03-01-2022 INR Coag (PPP) [Relative time] 1.2 {INR} [facility] Comment on above: INR Therapeutic Rang [...] 03-01-2022 Platelets (Bld) [#/Vol] 188 10*3/uL 150-450 [facility] Glucose Glucometer (BldC) [M ass/Vol]Ordered By: Floresita Gonzalez on 02-07-2022 Glucose [Mass/Vol] 153 mg/dL [facility] Comment on above: Random Glucose Refer ence Range is dependent on time and content of last meal. Glucose of more than 200 mg/dL in a nonstressed, ambulatory subject supports the diagnosis of Diabetes Mellitus. No Panel InformationOrdered By: Floresita Gonzalez on 02-07-2022 Bedside Glucose Comment Glu2: cleaned meter [facility] CBC AUTO DIFFon 01-26-2022 BASO # 0.1 103/ul Normal 0.0-0.1 [facility] Comment on above: Performed By: #### C BC #### [facility] [address] [address] [address] Jessica Saravia Basophils/100 WBC (Bld) 1.3 % Normal 0.2-2.0 [facility] Comment on above: Performed By: #### C BC #### [facility] [address] [place], [place] [address] Dr. Jessica Saravia EO # 0.4 103/ul Normal 0.0-0.7 [facility] Comment on above: Performed By: #### C BC #### [facility] [address] [place] [address] Dr. Jessica Saravia Eosinophils/100 WBC (Bld) 4.6 % Normal 0.9-7.0 [facility] Comment on above: Performed By: #### C BC #### [facility] [address] [place] [address] Dr. Jessica Saravia Erythrocyte distribution width (RBC) [Ratio] 18.3 % Critically high 11.0-15.0 [facility] Comment on above: Performed By: #### C BC #### [facility] [address] [place] [address] Dr. Jessica Saravia Hematocrit (Bld) [Volume fraction] 28.7 % Critically low 36.0-48.0 [facility] Comment on above: Performed By: #### C BC #### [facility] [address] [place] [address] Dr. Jessica Saravia Hemoglobin (Bld) [Mass/Vol] 8.3 g/dL Critically low 12.0-16.0 [facility] Comment on above: Performed By: #### C BC #### [facility] [address] [place] [address] Dr. Jessica Saravia IG # 0.12 10e3/ul Critically high 0.00-0.03 [facility] Comment on above: Performed By: #### C BC #### [facility] [address] [place] [address] Dr. Jessica Saravia IG % 1.6 % Critically high 0.0-0.5 [facility] Comment on above: Performed By: #### C BC #### [facility] [address] [place] [address] Dr. Jessica Saravia LYMPH # 1.4 103/ul Normal 1.2-3.8 [facility] Comment on above: Performed By: #### C BC #### [facility] [address] [place] [address] Dr. Jessica Saravia Lymphocytes/100 WBC (Bld) 18.3 % Critically low 20.5-60.0 [facility] Comment on above: Performed By: #### C BC #### [facility] [address] [place] [address] Dr. Jessica Saravia MANUAL DIFF REQ NO Normal [facility] Comment on above: Performed By: #### C BC #### [facility] [address] [place] [address] Dr. Jessica Saravia MCH (RBC) [Entitic mass] 26.4 pg Critically low 26.7-34.0 [facility] Comment on above: Performed By: #### C BC #### [facility] [address] [place] [address] Dr. Jessica Saravia MCHC (RBC) [Mass/Vol] 28.9 g/dL Critically low 29.9-35.2 [facility] Comment on above: Performed By: #### C BC #### [facility] [address] [place] [address] Dr. Jessica Saravia MCV (RBC) [Entitic vol] 91.4 fL Normal 81.0-99.0 [facility] Comment on above: Performed By: #### C BC #### [facility] [address] [place] [address] Dr. Jessica Saravia MONO # 1.0 103/ul Critically high 0.3-0.8 [facility] Comment on above: Performed By: #### C BC #### [facility] [address] [place] [address] Dr. Jessica Saravia Monocytes/100 WBC (Bld) 12.6 % Critically high 1.7-12. 0 [facility] Comment on above: Performed By: #### C BC #### [facility] [address] [place] [address] Dr. Jessica Saravia NEUT # 4.6 103/ul Normal 1.4-6.5 [facility] Comment on above: Performed By: #### C BC #### [facility] [address] [place] [address] Dr. Jessica Saravia Neutrophils/100 WBC (Bld) 61.6 % Normal 43.0-75.0 [facility] Comment on above: Performed By: #### C BC #### [facility] [address] [place] [address] Dr. Jessica Saravia Platelet mean volume (Bld) [Entitic vol] 12.4 fL Normal 9.5-13.5 [facility] Comment on above: Performed By: #### C BC #### [facility] [address] [place] [address] Dr. Jessica Saravia PLT 247 103/ul Normal 150-450 [facility] Comment on above: Performed By: #### C BC #### [facility] [address] [place] [address] Dr. Jessica Saravia RBC 3.14 106/ul Critically low 4.20-5.40 [facility] Comment on above: Performed By: #### C BC #### [facility] [address] [place] [address] Dr. Jessica Saravia WBC 7.5 103/ul Normal 4.0-11.0 [facility] Comment on above: Performed By: #### C BC #### [facility] [address] [place] [address] Dr. Jessica Saravia CREATININEon 01-26-2022 Creatinine [Mass/Vol] 0.88 mg/dL Normal 0.52-1.04 [facility] Comment on above: Performed By: #### C BC #### [facility] [address] [place] [address] Dr. Jessica Saravia EGFR-AF TURKMEN >60 Normal >=60 [facility] Comment on above: Performed By: #### C BC #### [facility] [address] [place] [address] Dr. Jessica Saravia EGFR-NON AF TURKMEN >60 Normal >=60 [facility] Comment on above: Performed By: #### C BC #### [facility] [address] [place] [address] Dr. Jessica Saravia LIVER PROFILEon 01-26-2022 Albumin [Mass/Vol] 2.7 g/dL Critically low 3.4-5.0 [facility] Comment on above: Performed By: #### C BC #### [facility] [address] [address] [address] Jessica Saravia Albumin/Globulin [Mass ratio] 0.7 {ratio} Normal [facility] Comment on above: Performed By: #### C BC #### [facility] [address] [place] [address] Dr. Jessica Saravia ALP [Catalytic activity/Vol] 82 U/L Normal 46-116 [facility] Comment on above: Performed By: #### C BC #### [facility] [address] [place] [address] Dr. Jessica Saravia ALT [Catalytic activity/Vol] 16 U/L Normal 14-59 [facility] Comment on above: Performed By: #### C BC #### [facility] [address] [place] [address] Dr. Jessica Saravia AST [Catalytic activity/Vol] 19 U/L Normal 15-37 [facility] Comment on above: Performed By: #### C BC #### [facility] [address] [place] [address] Dr. Jessica Saravia BILI, CONJUGATED 0.1 mg/dL Normal 0.0-0.3 [facility] Comment on above: Performed By: #### C BC #### [facility] [address] [place] [address] Dr. Jessica Saravia Bilirubin [Mass/Vol] 0.4 mg/dL Normal 0.2-1.3 [facility] Comment on above: Performed By: #### C BC #### [facility] [address] [place] [address] Dr. Jessica Saravia Globulin (S) [Mass/Vol] 4.0 g/dL Normal T [facility] Comment on above: Performed By: #### C BC #### [facility] [address] [place] [address] Dr. Jessica Saravia Protein [Mass/Vol] 6.7 g/dL Normal 6.1-8.2 [facility] Comment on above: Performed By: #### C BC #### [facility] [address] [place], [place] [address] Dr. Jessica Saravia SED RATE WESTERGRENon 2021 SED RATE 97 mm/hr Critically high <=30 [facility] Comment on above: Performed By: #### C BC #### [facility] [address] [place] [place], [place] [address] Dr. Jessica Saravia URIC ACID SERUMon 01-26-2022 Urate [Mass/Vol] 4.4 mg/dL Normal 2.5-6.2 [facility] Comment on above: Performed By: #### C BC #### [facility] [address] [place] [place], [place] [address] Dr. Jessica Saravia Amphetamine Screen Ql (U)Ord ered By: Ferdinand Garcia on 12-28-2021 Amphetamines Ql (U) Negative Negative [facility] Barbiturates [Presence] in U rineOrdered By: Ferdinand Garcia on 12-28-2021 Barbiturates Ql (U) Negative Negative [facility] Benzodiazepines [Presence] i n UrineOrdered By: Ferdinand Garcia on 12-28-2021 Benzodiazepines Ql (U) Negative Negative [facility] Cannabinoids [Presence] in U rine by Screen methodOrdered By: Ferdinand Garcia on 12-28-2021 Cannabinoids Screen Ql (U) Positive Negative [facility] Comment on above: These are unconfirme d results and should not be used for legal purposes. Drug Cut-Off Concentration: AMPH 1000 ng/mL DARIANA 200 ng/mL AURY 200 ng/mL COCM 300 ng/mL OP 300 ng/mL PCP 25 ng/mL THC 20 ng/mL Glucose Glucometer (dC) [M ass/Vol]Ordered By: Salty Gonzalez on 12-28-2021 Glucose [Mass/Vol] 154 mg/dL [facility] Comment on above: Random Glucose Refer ence Range is dependent on time and content of last meal. Glucose of more than 200 mg/dL in a nonstressed, ambulatory subject supports the diagnosis of Diabetes Mellitus. Laboratory - Drug toxicology Ordered By: Ferdinand Garcia on 12-28-2021 Opiates Ql (U) Negative Negative [facility] Phencyclidine Screen Ql (U)O rdered By: Ferdinand Blackburnain on 12-28-2021 Phencyclidine Ql (U) Negative Negative [facility] Urine cocaine detectionOrder ed By: Ferdinand Garcia on 12-28-2021 Cocaine Ql (U) Negative Negative [facility] CBC AUTO DIFFon 12-27-2021 BASO # 0.1 103/ul Normal 0.0-0.1 [facility] Comment on above: Performed By: #### C BC #### [facility] [address] [address] [address] Jessica Saravia Basophils/100 WBC (Bld) 1.0 % Normal 0.2-2.0 [facility] Comment on above: Performed By: #### C BC #### [facility] [address] [address] [address] Jessica Saravia EO # 0.3 103/ul Normal 0.0-0.7 [facility] Comment on above: Performed By: #### C BC #### [facility] [address] [address] [address] Jessica Saravia Eosinophils/100 WBC (Bld) 3.2 % Normal 0.9-7.0 [facility] Comment on above: Performed By: #### C BC #### [facility] [address] [address] [address] Jessica Saravia Erythrocyte distribution width (RBC) [Ratio] 16.8 % Critically high 11.0-15.0 [facility] Comment on above: Performed By: #### C BC #### [facility] [address] [address] [address] Jessica Saravia Hematocrit (Bld) [Volume fraction] 31.4 % Critically low 36.0-48.0 [facility] Comment on above: Performed By: #### C BC #### [facility] [address] [address] [address] Jessica Saravia Hemoglobin (Bld) [Mass/Vol] 9.5 g/dL Critically low 12.0-16.0 [facility] Comment on above: Performed By: #### C BC #### [facility] [address] [place] [address] Dr. Jessica Saravia IG # 0.02 10e3/ul Normal 0.00-0.03 [facility] Comment on above: Performed By: #### C BC #### [facility] [address] [place] [address] Dr. Jessica Saravia IG % 0.2 % Normal 0.0-0.5 [facility] Comment on above: Performed By: #### C BC #### [facility] [address] [place] [address] Dr. Jessica Saravia LYMPH # 2.2 103/ul Normal 1.2-3.8 [facility] Comment on above: Performed By: #### C BC #### [facility] [address] [place] [address] Dr. Jessica Saravia Lymphocytes/100 WBC (Bld) 26.5 % Normal 20.5-60.0 [facility] Comment on above: Performed By: #### C BC #### [facility] [address] [place] [address] Dr. Jessica Saravia MANUAL DIFF REQ NO Normal [facility] Comment on above: Performed By: #### C BC #### [facility] [address] [place] [address] Dr. Jessica Saravia MCH (RBC) [Entitic mass] 26.0 pg Critically low 26.7-34.0 [facility] Comment on above: Performed By: #### C BC #### [facility] [address] [place] [address] Dr. Jessica Saravia MCHC (RBC) [Mass/Vol] 30.3 g/dL Normal 29.9-35.2 [facility] Comment on above: Performed By: #### C BC #### [facility] [address] [place] [address] Dr. Jessica Saravia MCV (RBC) [Entitic vol] 86.0 fL Normal 81.0-99.0 [facility] Comment on above: Performed By: #### C BC #### [facility] [address] [place] [address] Dr. Jessica Saravia MONO # 0.9 103/ul Critically high 0.3-0.8 [facility] Comment on above: Performed By: #### C BC #### [facility] [address] [address] [address] Jessica Saravia Monocytes/100 WBC (Bld) 10.7 % Normal 1.7-12.0 [facility] Comment on above: Performed By: #### C BC #### [facility] [address] [place] [address] Dr. Jessica Saravia NEUT # 4.8 103/ul Normal 1.4-6.5 [facility] Comment on above: Performed By: #### C BC #### [facility] [address] [place] [address] Dr. Jessica Saravia Neutrophils/100 WBC (Bld) 58.4 % Normal 43.0-75.0 [facility] Comment on above: Performed By: #### C BC #### [facility] [address] [place] [address] Dr. Jessica Saravia Platelet mean volume (Bld) [Entitic vol] 11.5 fL Normal 9.5-13.5 [facility] Comment on above: Performed By: #### C BC #### [facility] [address] [place] [address] Dr. Jessica Saravia PLT 263 103/ul Normal 150-450 [facility] Comment on above: Performed By: #### C BC #### [facility] [address] [place] [address] Dr. Jessica Saravia RBC 3.65 106/ul Critically low 4.20-5.40 [facility] Comment on above: Performed By: #### C BC #### [facility] [address] [place] [address] Dr. Jessica Saravia WBC 8.2 103/ul Normal 4.0-11.0 [facility] Comment on above: Performed By: #### C BC #### [facility] [address] [place] [address] Dr. Jessica Saravia LIPID PROFILEon 12-27-2021 CHOL-HDL RATIO NORM SEE BELOW Normal [facility] Comment on above: Result Comment: 3.3 - 4.4 LOW RISK 4.4 - 7.1 AVERAGE RISK 7.1 - 11.0 MODERATE RISK >11.0 HIGH RISK Performed By: #### C BC #### [facility] [address] [address] [address] Jessica Saravia Cholesterol [Mass/Vol] 130 mg/dL Normal <=200 [facility] Comment on above: Performed By: #### C BC #### [facility] [address] [address] [address] Jessica Saravia Cholesterol in HDL [Mass/Vol] 27 mg/dL Normal [facility] Comment on above: Performed By: #### C BC #### [facility] [address] [address] [address] Jessica Saravia Cholesterol in LDL [Mass/Vol] 68.6 mg/dL Normal [facility] Comment on above: Performed By: #### C BC #### [facility] [address] [address] [address] Jessica Saravia Cholesterol.total/Cindy sterol in HDL [Mass ratio] 4.8 {ratio} Normal [facility] Comment on above: Performed By: #### C BC #### [facility] [address] [place] [address] Dr. Jessica Saravia HDL NORMAL > or = 60 mg/dl - LOW CARDIOVASCULAR RISK <40 mg/dl - HIGH CARDIOVASCULAR RISK Normal [facility] Comment on above: Performed By: #### C BC #### [facility] [address] [address] [address] Jessica Saravia LDL CALC NORMAL SEE BELOW Normal [facility] Comment on above: Result Comment: <100 mg/dl OPTIMAL 100 - 129 mg/dl NEAR OR ABOVE OPTIMAL 130 - 159 mg/dl BORDERLINE HIGH 160 - 189 mg/dl HIGH >190 mg/dl VERY HIGH Performed By: #### C BC #### [facility] [address] [place] [address] Dr. Jessica Saravia Triglyceride [Mass/Vol] 172 mg/dL Critically high <=150 [facility] Comment on above: Performed By: #### C BC #### [facility] [address] [address] [address] Jessica Saravia VLDL CALC 34.4 mg/dL Normal [facility] Comment on above: Performed By: #### C BC #### [facility] [address] [address] [address] Jessica Saravia LIVER PROFILEon 12-27-2021 Albumin [Mass/Vol] 2.5 g/dL Critically low 3.5-5.0 [facility] Comment on above: Performed By: #### L IVER #### [facility] [address] [address] [address] Jessica Saravia Albumin/Globulin [Mass ratio] 0.6 {ratio} Normal [facility] Comment on above: Performed By: #### L IVER #### [facility] [address] [place] [address] Dr. Jessica Saravia ALP [Catalytic activity/Vol] 80 U/L Normal 38-126 [facility] Comment on above: Performed By: #### L IVER #### [facility] [address] [place] [address] Dr. Jessica Saravia ALT [Catalytic activity/Vol] 16 U/L Normal 9-52 [facility] Comment on above: Performed By: #### L IVER #### [facility] [address] [place] [address] Dr. Jessica Saravia AST [Catalytic activity/Vol] 9 U/L Critically low 14-36 [facility] Comment on above: Performed By: #### L IVER #### [facility] [address] [place] [address] Dr. Jessica Saravia BILI, CONJUGATED 0.1 mg/dL Normal 0.0-0.3 [facility] Comment on above: Performed By: #### L IVER #### [facility] [address] [place] [address] Dr. Jessica Saravia Bilirubin [Mass/Vol] 0.3 mg/dL Normal 0.2-1.3 [facility] Comment on above: Performed By: #### L IVER #### [facility] [address] [address] [address] Jessica Saravia Globulin (S) [Mass/Vol] 4.1 g/dL Normal T [facility] Comment on above: Performed By: #### L IVER #### [facility] [address] [place] [address] Dr. Jessica Saravia Protein [Mass/Vol] 6.6 g/dL Normal 6.1-8.2 [facility] Comment on above: Performed By: #### L IVER #### [facility] [address] [place] [address] Dr. Jessica Saravia PROF CHEM 8 (BAS METB)on Anion gap [Moles/Vol] 11.6 mmol/L Normal [facility] Comment on above: Performed By: #### C BC #### [facility] [address] [place] [address] Dr. Jessica Saravia Calcium [Mass/Vol] 8.2 mg/dL Critically low 8.4-10.2 [facility] Comment on above: Performed By: #### C BC #### [facility] [address] [place] [address] Dr. Jessica Saravia Chloride [Moles/Vol] 103 mmol/L Normal 98-107 [facility] Comment on above: Performed By: #### C BC #### [facility] [address] [place] [address] Dr. Jessica Saravia CO2 [Moles/Vol] 30.0 mmol/L Normal 22.0-30.0 [facility] Comment on above: Performed By: #### C BC #### [facility] [address] [place] [address] Dr. Jessica Saravia Creatinine [Mass/Vol] 1.05 mg/dL Critically high 0.52-1.04 [facility] Comment on above: Performed By: #### C BC #### [facility] [address] [place] [address] Dr. Jessica Saravia EGFR-AF TURKMEN >60 Normal >=60 [facility] Comment on above: Performed By: #### C BC #### [facility] [address] [address] [address] Jessica Saravia EGFR-NON AF TURKMEN 53 mL/min/1.73m2 Critically low >=60 [facility] Comment on above: Performed By: #### C BC #### [facility] [address] [address] [address] Jessica Saravia Glucose [Mass/Vol] 214 mg/dL Critically high 74-106 T [facility] Comment on above: Performed By: #### C BC #### [facility] [address] [address] [address] Jessica Saravia Potassium [Moles/Vol] 3.6 mmol/L Normal 3.4-5.0 [facility] Comment on above: Performed By: #### C BC #### [facility] [address] [address] [address] Jessica Saravia Sodium [Moles/Vol] 141 mmol/L Normal 137-145 [facility] Comment on above: Performed By: #### C BC #### [facility] [address] [address] [address] Jessica Saravia Urea nitrogen [Mass/Vol] 9.0 mg/dL Normal 7.0-17.0 [facility] Comment on above: Performed By: #### C BC #### [facility] [address] [address] [address] Jessica Saravia Urea nitrogen/Creatinine [Mass ratio] 8.6 mg/mg Normal [facility] Comment on above: Performed By: #### C BC #### [facility] [address] [address] [address] Jessica Saravia SED RATE WESTERGRENon 2021 SED RATE 80 mm/hr Critically high <=30 [facility] Comment on above: Performed By: #### S EDR #### [facility] [address] [address] [address] Jessica Saravia COVID-19 Positive/NegativeOr dered By: Salty Gonzalez on 12-24-2021 SARS-CoV-2 (COVID-19) N gene AMA+probe Ql (Resp) Negative Negative [facility] Comment on above: Testing for SARS-CoV -2 by RT-PCRThis test was developed and its performance characteristics determined by [employer] ([employer] and validated at the [facility]. This test has not been FDA [...] 12-14-2021 Basophils (Bld) [#/Vol] 0.1 10*3/uL 0.0-0.2 [facility] Basophils/100 WBC Auto (Bld) Ordered By: Salty Gonzalez on 12-14-2021 Basophils/100 WBC (Bld) 1.5 % [facility] Blood hemoglobin measurement (mass/volume)Ordered By: Salty Gonzalez on 12-14-2021 Hemoglobin (Bld) [Mass/Vol] 10.7 g/dL 11.8-15.4 [facility] Blood leukocytes automated c ount (number/volume)Ordered By: Salty Gonzalez on 12-14-2021 WBC (Bld) [#/Vol] 7.2 10*3/uL 4.5-11.0 [facility] Creatinine and Glomerular fi ltration rate.predicted panel (S/P/Bld)Ordered By: Salty Gonzalez on 12-14-2021 Creatinine [Mass/Vol] 0.98 mg/dL 0.44-1.03 [facility] Eosinophils Auto (Bld) [#/Vo l]Ordered By: Salty Gonzalez on 12-14-2021 Eosinophils (Bld) [#/Vol] 0.4 10*3/uL 0.0-0.45 [facility] Eosinophils/100 WBC Auto (Bl d)Ordered By: Salty Gonzalez on 12-14-2021 Eosinophils/100 WBC (Bld) 5.5 % [facility] Erythrocyte distribution wid th Auto (RBC) [Ratio]Ordered By: Salty Gonzalez on 12-14-2021 Erythrocyte distribution width (RBC) [Ratio] 17.4 % 11.9-15.3 [facility] Estimated glomerular filtrat ion rate (GFR) non- AmericanOrdered By: Salty Gonzalez on 12-14-2021 GFR/1.73 sq M.predicted among non-blacks MDRD (S/P/Bld) [Vol rate/Area] 57 mL/Min [facility] Hematocrit Auto (Bld) [Volum e fraction]Ordered By: Salty Gonzalez on 12-14-2021 Hematocrit (Bld) [Volume fraction] 33.6 % 34.0-46.4 [facility] Laboratory - Hematology and Cell countsOrdered By: Salty Gonzalez on 12-14-2021 Nucleated RBC/100 WBC (Bld) [Ratio] 0.1 % 0-0.5 [facility] Lymphocytes Auto (Bld) [#/Vo l]Ordered By: Salty Gonzalez on 12-14-2021 Lymphocytes (Bld) [#/Vol] 1.4 10*3/uL 1.00-4.8 [facility] Lymphocytes/100 WBC Auto (Bl d)Ordered By: Salty Gonzalez on 12-14-2021 Lymphocytes/100 WBC (Bld) 19.0 % [facility] MCH Auto (RBC) [Entitic mass ]Ordered By: Salty Gonzalez on 12-14-2021 MCH (RBC) [Entitic mass] 26.7 pg 24.7-34.3 [facility] MCHC Auto (RBC) [Mass/Vol]Or dered By: Salty Gonzalez on 12-14-2021 MCHC (RBC) [Mass/Vol] 31.9 g/dL 32.0-35.0 [facility] MCV Auto (RBC) [Entitic vol] Ordered By: Salty Gonzalez on 12-14-2021 MCV (RBC) [Entitic vol] 83.5 fL 80-100 [facility] Monocytes Auto (Bld) [#/Vol] Ordered By: Salty Gonzalez on 12-14-2021 Monocytes (Bld) [#/Vol] 0.8 10*3/uL 0.0-0.8 [facility] Monocytes/100 WBC Auto (Bld) Ordered By: Salty Gonzalez on 12-14-2021 Monocytes/100 WBC (Bld) 11.0 % [facility] Neutrophils Auto (Bld) [#/Vo l]Ordered By: Salty Gonzalez on 12-14-2021 Neutrophils (Bld) [#/Vol] 4.5 10*3/uL 1.8-7.7 [facility] Neutrophils/100 WBC Auto (Bl d)Ordered By: Salty Gonzalez on 12-14-2021 Neutrophils/100 WBC (Bld) 63.0 % [facility] No Panel InformationOrdered By: Salty Gonzalez on 12-14-2021 Estimated GFR () > 60 mL/Min [facility] Comment on above: GFR estimated refere nce range: According to KDOQI guidelines, <60 ml/min/1.73m2 is sufficient to diagnose a patient with chronic kidney disease. Pharmacy Creatinine Clearance (Chem N/A [facility] Platelet mean volume Auto (B ld) [Entitic vol]Ordered By: Salty Gonzalez on 12-14-2021 Platelet mean volume (Bld) [Entitic vol] 10.1 fL 6.3-10.7 [facility] Platelets Auto (Bld) [#/Vol] Ordered By: Salty Gonzalez on 12-14-2021 Platelets (Bld) [#/Vol] 245 10*3/uL 150-450 [facility] RBC Auto (Bld) [#/Vol]Ordere d By: Salty Gonzalez on 12-14-2021 RBC (Bld) [#/Vol] 4.02 10*6/uL 3.60-5.00 [facility] Serum or plasma calcium kell urement (mass/volume)Ordered By: Salty Gonzalez on 12-14-2021 Calcium [Mass/Vol] 10.0 mg/dL 8.2-10.2 [facility] Serum or plasma chloride jennifer surement (moles/volume)Ordered By: Salty Gonzalez on 12-14-2021 Chloride [Moles/Vol] 102 mmol/L 95-114 [facility] Serum or plasma glucose kell urement (mass/volume)Ordered By: Salty Gonzalez on 12-14-2021 Glucose [Mass/Vol] 226 mg/dL 70-100 [facility] Comment on above: ADA recommended refe rence rangeRandom Glucose Reference Range is dependent on time and content of last meal. Glucose of more than 200 mg/dL in a nonstressed, ambulatory subject supports the diagnosis of Diabetes Mellitus. Serum or plasma potassium me asurement (moles/volume)Ordered By: Salty Gonzalez on 12-14-2021 Potassium [Moles/Vol] 3.9 mmol/L 3.5-5.1 [facility] Serum or plasma sodium measu rement (moles/volume)Ordered By: Salty Gonzalez on 12-14-2021 Sodium [Moles/Vol] 136 mmol/L 136-146 [facility] Serum or plasma total carbon dioxide measurement (moles/volume)Ordered By: Salty Gonzalez on 12-14-2021 CO2 [Moles/Vol] 24.5 mmol/L 22.0-30.0 [facility] Serum or plasma urea nitroge n measurement (mass/volume)Ordered By: Salyt Gonzalez on 03-01-2022 Urea nitrogen [Mass/Vol] 9 mg/dL 07-08 [facility] CBC AUTO DIFFon 12-08-2021 BASO # 0.1 103/ul Normal 0.0-0.1 [facility] Comment on above: Performed By: #### L IVER #### [facility] [address] [address] [address] Jessica Saravia Basophils/100 WBC (Bld) 1.1 % Normal 0.2-2.0 [facility] Comment on above: Performed By: #### L IVER #### [facility] [address] [address] [address] Jessica Saravia EO # 0.4 103/ul Normal 0.0-0.7 [facility] Comment on above: Performed By: #### L IVER #### [facility] [address] [place] [address] Dr. Jessica Saravia Eosinophils/100 WBC (Bld) 4.1 % Normal 0.9-7.0 [facility] Comment on above: Performed By: #### L IVER #### [facility] [address] [address] [address] Jessica Saravia Erythrocyte distribution width (RBC) [Ratio] 16.8 % Critically high 11.0-15.0 [facility] Comment on above: Performed By: #### L IVER #### [facility] [address] [place] [address] Dr. Jessica Saravia Hematocrit (Bld) [Volume fraction] 37.1 % Normal 36.0-48.0 [facility] Comment on above: Performed By: #### L IVER #### [facility] [address] [address] [address] Jessica Saravia Hemoglobin (Bld) [Mass/Vol] 11.0 g/dL Critically low 12.0-16.0 [facility] Comment on above: Performed By: #### L IVER #### [facility] [address] [place] [address] Dr. Jessica Saravia IG # 0.02 10e3/ul Normal 0.00-0.03 [facility] Comment on above: Performed By: #### L IVER #### [facility] [address] [address] [address] Jessica Saravia IG % 0.2 % Normal 0.0-0.5 [facility] Comment on above: Performed By: #### L IVER #### [facility] [address] [address] [address] Jessica Saravia LYMPH # 1.5 103/ul Normal 1.2-3.8 [facility] Comment on above: Performed By: #### L IVER #### [facility] [address] [address] [address] Jessica Saravia Lymphocytes/100 WBC (Bld) 16.2 % Critically low 20.5-60.0 [facility] Comment on above: Performed By: #### L IVER #### [facility] [address] [place] [address] Dr. Jessica Saravia MANUAL DIFF REQ NO Normal [facility] Comment on above: Performed By: #### L IVER #### [facility] [address] [place] [address] Dr. Jessica Saravia MCH (RBC) [Entitic mass] 26.4 pg Critically low 26.7-34.0 [facility] Comment on above: Performed By: #### L IVER #### [facility] [address] [place] [address] Dr. Jessica Saravia MCHC (RBC) [Mass/Vol] 29.6 g/dL Critically low 29.9-35.2 [facility] Comment on above: Performed By: #### L IVER #### [facility] [address] [place] [address] Dr. Jessica Saravia MCV (RBC) [Entitic vol] 89.0 fL Normal 81.0-99.0 [facility] Comment on above: Performed By: #### L IVER #### [facility] [address] [place] [address] Dr. Jessica Saravia MONO # 0.8 103/ul Normal 0.3-0.8 [facility] Comment on above: Performed By: #### L IVER #### [facility] [address] [address] [address] Jessica Saravia Monocytes/100 WBC (Bld) 8.6 % Normal 1.7-12.0 [facility] Comment on above: Performed By: #### L IVER #### [facility] [address] [address] [address] Jessica Saravia NEUT # 6.3 103/ul Normal 1.4-6.5 [facility] Comment on above: Performed By: #### L IVER #### [facility] [address] [place] [address] Dr. Jessica Saravia Neutrophils/100 WBC (Bld) 69.8 % Normal 43.0-75.0 [facility] Comment on above: Performed By: #### L IVER #### [facility] [address] [place] [address] Dr. Jessica Saravia Platelet mean volume (Bld) [Entitic vol] 11.9 fL Normal 9.5-13.5 [facility] Comment on above: Performed By: #### L IVER #### [facility] [address] [place] [address] Dr. Jessica Saravia PLT 253 103/ul Normal 150-450 [facility] Comment on above: Performed By: #### L IVER #### [facility] [address] [place] [address] Dr. Jessica Saravia RBC 4.17 106/ul Critically low 4.20-5.40 [facility] Comment on above: Performed By: #### L IVER #### [facility] [address] [place] [address] Dr. Jessica Saravia WBC 9.0 103/ul Normal 4.0-11.0 [facility] Comment on above: Performed By: #### L IVER #### [facility] [address] [place] [address] Dr. Jessica Saravia CREATININEon 12-08-2021 Creatinine [Mass/Vol] 1.23 mg/dL Critically high 0.52-1.04 [facility] Comment on above: Performed By: #### C SARAH, LIVER #### [facility] [address] [place] [address] Dr. Jessica Saravia EGFR-AF TURKMEN 53 mL/min/1.73m2 Critically low >=60 [facility] Comment on above: Performed By: #### C SARAH, LIVER #### [facility] [address] [place] [address] Dr. Jessica Saravia EGFR-NON AF TURKMEN 44 mL/min/1.73m2 Critically low >=60 [facility] Comment on above: Performed By: #### C SARAH, LIVER #### [facility] [address] [place] [address] Dr. Jessica Saravia LIVER PROFILEon 12-08-2021 Albumin [Mass/Vol] 2.8 g/dL Critically low 3.5-5.0 [facility] Comment on above: Performed By: #### C SARAH, LIVER #### [facility] [address] [place] [address] Dr. Jessica Saravia Albumin/Globulin [Mass ratio] 0.7 {ratio} Normal [facility] Comment on above: Performed By: #### C SARAH, LIVER #### [facility] [address] [place] [address] Dr. Jessica Saravia ALP [Catalytic activity/Vol] 92 U/L Normal 38-126 [facility] Comment on above: Performed By: #### C SARAH, LIVER #### [facility] [address] [place] [address] Dr. Jessica Saravia ALT [Catalytic activity/Vol] 15 U/L Normal 9-52 [facility] Comment on above: Performed By: #### C SARAH, LIVER #### [facility] [address] [place] [address] Dr. Jessica Saravia AST [Catalytic activity/Vol] 15 U/L Normal 14-36 [facility] Comment on above: Performed By: #### C SARAH, LIVER #### [facility] [address] [place] [address] Dr. Jessica Saravia BILI, CONJUGATED 0.1 mg/dL Normal 0.0-0.3 [facility] Comment on above: Performed By: #### C SARAH, LIVER #### [facility] [address] [place] [address] Dr. Jessica Saravia Bilirubin [Mass/Vol] 0.4 mg/dL Normal 0.2-1.3 [facility] Comment on above: Performed By: #### C SARAH, LIVER #### [facility] [address] [place] [address] Dr. Jessica Saravia Globulin (S) [Mass/Vol] 4.3 g/dL Normal T [facility] Comment on above: Performed By: #### C SARAH, LIVER #### [facility] [address] [place] [address] Dr. Jessica Saravia Protein [Mass/Vol] 7.1 g/dL Normal 6.1-8.2 [facility] Comment on above: Performed By: #### C SARAH, LIVER #### [facility] [address] [place] [address] Dr. Jessica Saravia SED RATE [facility] 2021 SED RATE 118 mm/hr Critically high <=30 [facility] Comment on above: Performed By: #### L IVER #### [facility] [address] [place] [address] Dr. Jessica Saravia Office Visit (Cardiology)on 10-28-2021 Follow-up visit Diagnoses/Problems Assessed Status post insertion of drug eluting coronary artery stent (V45.82) (Z95.5) History of ST elevation myocardial infarction (STEMI) (412) (I25.2) Ischemic cardiomyopathy (414.8) (I25.5) HTN (hypertension) (401.9) (I10) Mixed hyperlipidemia (272.2) (E78.2) Diabetes mellitus (250.00) (E11.9) Coronary artery disease involving [place] coronary artery of [place] heart without angina pectoris (414.01) (I25.10) Rheumatoid arthritis (714.0) (M06.9) Never a smoker Morbid obesity with BMI of 40.0-44.9, adult (278.01,V85.41) (E66.01,Z68.41) Orders Coronary artery disease involving [place] coronary artery of [place] heart without angina pectoris, HTN (hypertension), Ischemic cardiomyopathy, Mixed hyperlipidemia ALT - Alanine Aminotransferase, Serum; Status:Active - Retrospective Authorization; Requested for:27Dec2021; AST; Status:Active - Retrospective Authorization; Requested for:27Dec2021; Basic Metabolic Panel; Status:Active - Retrospective Authorization; Requested for:27Dec2021; Lipid Panel; Status:Active - Retrospective Authorization; Requested for:27Dec2021; Coronary artery disease involving [place] coronary artery of [place] heart without angina pectoris, Mixed hyperlipidemia Stop: [...] All medical record entries made by the Scribe were at my direction and personally dictated [...] 152/80. She sustained a very large inferior [place] in August 2021 with extensive AngioJet thrombectomy [...] 1/2 cup (more content not included)... Normal [place] Tobacco Screening.on 022 Tobacco use status [facility] b) No M [address] [address] DO Work Phone: Echocardiogramon 10-04-2021 Echocardiography [facility] [address] [place] [address], [address], [place] [address] TRANSTHORACIC ECHOCARDIOGRAM REPORT Patient Name: CHUCKY Kilpatrick Physician: [id number] Kateryna DUNLAP MD Study Date: 10/04/2021 Referring [id number] LUKE HERRMANN Physician: MRN/PID: [id number] PCP: Reese Nixon MD Accession/Order#: [id number] [facility] Location: Date of : 1955 Fellow: Gender: F Nurse: Admit Date: Cash Grain Grower: Shana Phelps RDCS, RVT Height: 162.56 cm CC Report to: Weight: 126.10 kg Study Type: Echocardiogram BSA: 2.25 m2 Blood Pressure: 144 /94 mmHg Diagnosis/ICD: I25.5-Ischemic cardiomyopathy Indication: CAD, [place] and PTCA-08/2021, Diabetes, Dyspnea, HTN, Rheumatoid Arthritis, Morbid Obesity Procedure/CPT: Echo Complete w Full [id number] Study Detail: The following Echo studies were [...] Normal Ranges: LVOT Diameter: 2.10 cm (1.8-2.4cm) [id number] Kateryna De Jesus MD Electronically signed on 10/04/2021 at 4:39:26 PM Final Normal [facility] Office Visit (Cardiology)on 10-04-2021 Follow-up visit Diagnoses/Problems Assessed Ischemic cardiomyopathy (414.8) (I25.5) Coronary artery disease involving [place] coronary artery of [place] heart without angina pectoris (414.01) (I25.10) HTN (hypertension) (401.9) (I10) Diabetes mellitus (250.00) (E11.9) Mixed hyperlipidemia (272.2) (E78.2) STEMI (ST elevation myocardial infarction) (410.90) (I21.3) Morbid obesity with BMI of 40.0-44.9, adult (278.01,V85.41) (E66.01,Z68.41) Orders Coronary artery disease involving [place] coronary artery of [place] heart without angina pectoris, Mixed hyperlipidemia ALT - Alanine Aminotransferase, Serum; Status:Active; Requested for:[id number]; AST; Status:Active; Requested for:[id number]; Lipid Panel; Status:Active; Requested for:[id number]; Ischemic cardiomyopathy Basic Metabolic Panel; Status:Active; Requested for:[id number]; Patient Instructions PLAN: Through informed decision making [...] Complaint Doing fine with increased medications CHUCKY GERMÁN is being seen for a 2 week [...] list o (more content not included)... Normal [place] Tobacco Screening.on Fall risk assessment a) No falls within the last year [facility] [employer] Work Phone: Tobacco use status [facility] b) No M [facility] [employer] Work Phone: Office Visit (Cardiology)on 09-20-2021 Follow-up visit Diagnoses/Problems Assessed Ischemic cardiomyopathy (414.8) (I25.5) ICM HFrEF LVEF 35% Aug 2021 cath: FC II Stage C GDMT: coreg AND entresto added Aug 31, 2021 No aldactone currently Coronary artery disease involving [place] coronary artery of [place] heart without angina pectoris (414.01) (I25.10) Aug 23, 2021 aspiration thrombectomy PDA AngioJet thrombectomy p-mRCA PCI/[facility] 02/10 dRCA PCI/[place] p/mRCA No left system disease STEMI (ST elevation myocardial infarction) (410.90) (I21.3) Aug 23, 2021 [facility] Emeregent management Dr. Herrmann HTN (hypertension) (401.9) (I10) optimal Mixed hyperlipidemia (272.2) (E78.2) Atorvastatin was new at discharge Will need labs beginning of October Diabetes mellitus (250.00) (E11.9) Good control On ARNI/statin Morbid obesity with BMI of 40.0-44.9, adult (278.01,V85.41) (E66.01,Z68.41) Reviewed the merits of healthy lifestyle choices on overall cardiovascular health. Orders Coronary artery disease involving [place] coronary artery of [place] heart without angina pectoris, Mixed hyperlipidemia Start: [...] contact the office if new symptoms arise. 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 Normal [place] Tobacco Screening.on 021 Heart Rate Regular [facility] [place] [address] DO Work Phone: Tobacco use status [facility] b) No M [facility] [address] DO Work Phone: Tobacco Screening.on 021 Fall risk assessment a) No falls within the last year [facility] [address] DO Work Phone: Tobacco use status [facility] b) No M [facility] [address] DO Work Phone: Vital Signs Date Time Vital Sign Value Performing Clinician Facility 04-29-2024 11:25-0400 Body temperature 97.9 [degF] DO Reese House Work Phone: [facility] 04-29-2024 11:25-0400 Body weight 108.4 kg DO Reese House Work Phone: [facility] 04-29-2024 11:25-0400 Heart rate 82 /min DO Reese House Work Phone: [facility] 04-29-2024 11:25-0400 Respiratory rate 16 /min DO Reese House Work Phone: [facility] 04-29-2024 11:25-0400 SaO2% (BldA) [Mass fraction] 98 % DO Reese House Work Phone: [facility] 10-25-2023 12:59-0500 Body temperature 97.5 [degF] DO Reese House Work Phone: [facility] 10-25-2023 12:59-0500 Body weight 110.67 kg DO Reese House Work Phone: [facility] 10-25-2023 12:59-0500 Diastolic blood pressure 76 mm[Hg] DO Reese House Work Phone: [facility] 10-25-2023 12:59-0500 Heart rate 72 /min DO Reese House Work Phone: [facility] 10-25-2023 12:59-0500 Respiratory rate 16 /min DO Reese House Work Phone: [facility] 10-25-2023 12:59-0500 SaO2% (BldA) [Mass fraction] 100 % DO Reese House Work Phone: [facility] 10-25-2023 12:59-0500 Systolic blood pressure 119 mm[Hg] DO Reese House Work Phone: [facility] 08-10-2023 11:04-0400 Diastolic blood pressure 90 mm[Hg] Luke Herrmann DO Work Phone: [facility] 08-10-2023 11:04-0400 Systolic blood pressure 120 mm[Hg] Luke Herrmann DO Work Phone: [facility] 08-10-2023 10:35-0400 Body height 162.6 cm Luke Herrmann DO Work Phone: [facility] 08-10-2023 10:35-0400 Body mass index (BMI) [Ratio] 42.57 kg/m2 Luke Herrmann DO Work Phone: [facility] 08-10-2023 10:35-0400 Body weight 112.49 kg Luke Herrmann DO Work Phone: [facility] 08-10-2023 10:35-0400 Heart rate 74 /min Luke Herrmann DO Work Phone: [facility] 04-20-2023 11:22-0400 Body height 165.1 cm DO Reese House Work Phone: [facility] 04-20-2023 11:22-0400 Body temperature 98.4 [degF] DO Reese House Work Phone: [facility] 04-20-2023 11:22-0400 Body weight 110.81 kg DO Reese House Work Phone: [facility] 04-20-2023 11:22-0400 Diastolic blood pressure 81 mm[Hg] DO Reese House Work Phone: [facility] 04-20-2023 11:22-0400 Heart rate 86 /min DO Reese House Work Phone: [facility] 04-20-2023 11:22-0400 Respiratory rate 20 /min DO Reese House Work Phone: [facility] 04-20-2023 11:22-0400 SaO2% (BldA) [Mass fraction] 97 % DO Reese House Work Phone: [facility] 04-20-2023 11:22-0400 Systolic blood pressure 180 mm[Hg] DO Reese House Work Phone: [facility] 11-08-2022 10:34-0500 Body height 162.56 cm Reese Good House Work Phone: [facility] [address] DO Work Phone: 11-08-2022 10:34-0500 Body mass index (BMI) [Ratio] 40.85 kg/m2 Reese P House Work Phone: [facility] 250 DO Work Phone: 11-08-2022 10:34-0500 Body surface area Derived from formula 2.11 m2 Reese P House Work Phone: [facility] [address] DO Work Phone: 11-08-2022 10:34-0500 Body weight 107.96 kg Reese P House Work Phone: [facility] [address] DO Work Phone: 11-08-2022 10:34-0500 Diastolic blood pressure 88 mm[Hg] Reese P House Work Phone: [facility] [address] DO Work Phone: 11-08-2022 10:34-0500 Heart rate 80 /min Reese P House Work Phone: [facility] [address] DO Work Phone: 11-08-2022 10:34-0500 Systolic blood pressure 138 mm[Hg] Reese P House Work Phone: [facility] [address] DO Work Phone: 10-13-2022 08:35-0500 Body temperature 97.8 [degF] DO Reese House Work Phone: [facility] 10-13-2022 08:35-0500 Body weight 106.7 kg DO Reese House Work Phone: [facility] 10-13-2022 08:35-0500 Diastolic blood pressure 78 mm[Hg] DO Reese House Work Phone: [facility] 10-13-2022 08:35-0500 Heart rate 79 /min DO Reese House Work Phone: [facility] 10-13-2022 08:35-0500 Respiratory rate 16 /min DO Reese House Work Phone: [facility] 10-13-2022 08:35-0500 SaO2% (BldA) [Mass fraction] 100 % DO Reese House Work Phone: [facility] 10-13-2022 08:35-0500 Systolic blood pressure 135 mm[Hg] DO Reese House Work Phone: [facility] 03-01-2022 09:02-0400 Body height 162.56 cm DO Reese House Work Phone: [facility] 03-01-2022 09:02-0400 Body mass index (BMI) [Ratio] 40.3 kg/m2 DO Reese House Work Phone: [facility] 03-01-2022 09:02-0400 Body weight 106.59 kg DO Reese House Work Phone: [facility] 03-01-2022 09:02-0400 Diastolic blood pressure 70 mm[Hg] DO Reese House Work Phone: [facility] 03-01-2022 09:02-0400 Heart rate 76 /min DO Reese House Work Phone: [facility] 03-01-2022 09:02-0400 Respiratory rate 18 /min DO Reese House Work Phone: [facility] 03-01-2022 09:02-0400 SaO2% (BldA) [Mass fraction] 98 % DO Reese House Work Phone: [facility] 03-01-2022 09:02-0400 Systolic blood pressure 133 mm[Hg] DO Reese House Work Phone: [facility] 02-02-2022 13:50-0400 Body temperature 98 [degF] DO Reese House Work Phone: [facility] 02-02-2022 13:50-0400 Body weight 110.67 kg DO Reese House Work Phone: [facility] 02-02-2022 13:50-0400 Diastolic blood pressure 72 mm[Hg] DO Reese House Work Phone: [facility] 02-02-2022 13:50-0400 Heart rate 80 /min DO Reese House Work Phone: [facility] 02-02-2022 13:50-0400 Respiratory rate 16 /min DO Reese House Work Phone: [facility] 02-02-2022 13:50-0400 SaO2% (BldA) [Mass fraction] 95 % DO Reese House Work Phone: [facility] 02-02-2022 13:50-0400 Systolic blood pressure 146 mm[Hg] DO Reese House Work Phone: [facility] 01-13-2022 08:19-0400 Body height 165.1 cm DO Reese House Work Phone: [facility] 12-28-2021 15:13-0400 Diastolic blood pressure 73 mm[Hg] DO Erese House Work Phone: [facility] 12-28-2021 15:13-0400 Heart rate 72 /min DO Reese House Work Phone: [facility] 12-28-2021 15:13-0400 Respiratory rate 18 /min DO Reese Nixon Work Phone: [facility] 12-28-2021 15:13-0400 SaO2% (BldA) [Mass fraction] 95 % DO Reese House Work Phone: [facility] 12-28-2021 15:13-0400 Systolic blood pressure 141 mm[Hg] DO Reese House Work Phone: [facility] 12-28-2021 13:48-0400 Body temperature 98.1 [degF] DO Reese Nixon Work Phone: [facility] 12-28-2021 13:48-0400 Inhaled oxygen flow rate 6 L/min DO Reese Nixon Work Phone: [facility] 12-28-2021 11:39-0400 Body height 162.56 cm DO Reese Nixon Work Phone: [facility] 12-28-2021 11:39-0400 Body mass index (BMI) [Ratio] 41.1 kg/m2 DO Reese Nixon Work Phone: [facility] 12-28-2021 11:39-0400 Body weight 108.86 kg DO Reese Nixon Work Phone: [facility] 11-16-2021 09:35-0500 Body temperature 97.9 [degF] DO Reese Nixon Work Phone: [facility] 11-16-2021 09:35-0500 Diastolic blood pressure 60 mm[Hg] DO Reese House Work Phone: [facility] 11-16-2021 09:35-0500 Heart rate 67 /min DO Reese Nixon Work Phone: [facility] 11-16-2021 09:35-0500 Respiratory rate 16 /min DO Reese Nixon Work Phone: [facility] 11-16-2021 09:35-0500 SaO2% (BldA) [Mass fraction] 100 % DO Reese House Work Phone: [facility] 11-16-2021 09:35-0500 Systolic blood pressure 118 mm[Hg] DO Reese House Work Phone: [facility] 10-28-2021 11:19-0500 Diastolic blood pressure 84 mm[Hg] Reese P House Work Phone: [facility] [facility] DO Work Phone: 10-28-2021 11:19-0500 Systolic blood pressure 152 mm[Hg] Reese P House Work Phone: [facility] 250 DO Work Phone: 10-28-2021 10:57-0500 Body height 162.56 cm Reese P House Work Phone: [facility] 250 DO Work Phone: 10-28-2021 10:57-0500 Body mass index (BMI) [Ratio] 43.77 kg/m2 Reese P House Work Phone: [facility] 250 DO Work Phone: 10-28-2021 10:57-0500 Body surface area Derived from formula 2.17 m2 Reese P House Work Phone: [facility] 250 DO Work Phone: 10-28-2021 10:57-0500 Body weight 115.67 kg Reese P House Work Phone: [facility] 250 DO Work Phone: 10-28-2021 10:57-0500 Diastolic blood pressure 100 mm[Hg] Reese P House Work Phone: [facility] 250 DO Work Phone: 10-28-2021 10:57-0500 Heart rate 77 /min Reese P House Work Phone: [facility] 250 DO Work Phone: 10-28-2021 10:57-0500 Systolic blood pressure 165 mm[Hg] Reese P House Work Phone: [facility] 250 DO Work Phone: 10-11-2021 13:37-0500 Diastolic blood pressure 84 mm[Hg] Reese P House Work Phone: [facility] 250 DO Work Phone: 10-11-2021 13:37-0500 Heart rate 82 /min Reese P House Work Phone: [facility] 250 DO Work Phone: 10-11-2021 13:37-0500 Systolic blood pressure 160 mm[Hg] Reese P House Work Phone: [facility] 250 DO Work Phone: 10-11-2021 13:30-0500 Body height 162.56 cm Reese P House Work Phone: [facility] 250 DO Work Phone: 10-11-2021 13:30-0500 Body mass index (BMI) [Ratio] 44.29 kg/m2 Reese P House Work Phone: [facility] 250 DO Work Phone: 10-11-2021 13:30-0500 Body surface area Derived from formula 2.18 m2 Reese P House Work Phone: [facility] 250 DO Work Phone: 10-11-2021 13:30-0500 Body weight 117.03 kg Reese P House Work Phone: [facility] 250 DO Work Phone: 10-11-2021 13:30-0500 Diastolic blood pressure 100 mm[Hg] Reese P House Work Phone: [facility] 250 DO Work Phone: 10-11-2021 13:30-0500 Systolic blood pressure 160 mm[Hg] Reese P House Work Phone: [facility] 250 DO Work Phone: 10-05-2021 08:27-0500 28.8 1 Reese P House Work Phone: [facility] 250 DO Work Phone: Comment on above: [facility] 10-04-2021 12:36-0500 Body height 162.56 cm Reese P House Work Phone: [facility] [facility] [place] Work Phone: 10-04-2021 12:36-0500 Body mass index (BMI) [Ratio] 44.11 kg/m2 Reese P House Work Phone: [facility] [facility] [place] Work Phone: 10-04-2021 12:36-0500 Body surface area Derived from formula 2.18 m2 Reese P House Work Phone: [facility] [facility] [place] Work Phone: 10-04-2021 12:36-0500 Body weight 116.58 kg Reese P House Work Phone: [facility] [facility] [place] Work Phone: 10-04-2021 12:36-0500 Diastolic blood pressure 94 mm[Hg] Reese P House Work Phone: [facility] [facility] [place] Work Phone: 10-04-2021 12:36-0500 Heart rate 72 /min Reese P House Work Phone: [facility] [facility] [place] Work Phone: 10-04-2021 12:36-0500 Systolic blood pressure 158 mm[Hg] Reese P House Work Phone: [facility] [facility] [place] Work Phone: 10-04-2021 12:36-0500 55 1 Reese P House Work Phone: [facility] [facility] [place] Work Phone: Comment on above: [id number] 09-20-2021 12:36-0500 Body height 162.56 cm Reese P House Work Phone: [facility] 250 DO Work Phone: 09-20-2021 12:36-0500 Body mass index (BMI) [Ratio] 44.8 kg/m2 Reese P House Work Phone: [facility] 250 DO Work Phone: 09-20-2021 12:36-0500 Body surface area Derived from formula 2.19 m2 Reese P House Work Phone: [facility] 250 DO Work Phone: 09-20-2021 12:36-0500 Body weight 118.39 kg Reese P House Work Phone: [facility] 250 DO Work Phone: 09-20-2021 12:36-0500 Diastolic blood pressure 84 mm[Hg] Reese P House Work Phone: [facility] 250 DO Work Phone: 09-20-2021 12:36-0500 Heart rate 74 /min Reese P House Work Phone: [facility] 250 DO Work Phone: 09-20-2021 12:36-0500 Systolic blood pressure 126 mm[Hg] Reese P House Work Phone: [facility] 250 DO Work Phone: 08-31-2021 14:50-0500 Body height 162.56 cm Reese P House Work Phone: [facility] 250 DO Work Phone: 08-31-2021 14:50-0500 Body mass index (BMI) [Ratio] 47.72 kg/m2 Reese P House Work Phone: [facility] 250 DO Work Phone: 08-31-2021 14:50-0500 Body surface area Derived from formula 2.25 m2 Reese P House Work Phone: [facility] 250 DO Work Phone: 08-31-2021 14:50-0500 Body weight 126.1 kg Reese P House Work Phone: [facility] 250 DO Work Phone: 08-31-2021 14:50-0500 Diastolic blood pressure 112 mm[Hg] Reese P House Work Phone: [facility] 250 DO Work Phone: 08-31-2021 14:50-0500 Heart rate 84 /min Reese P House Work Phone: [facility] 250 DO Work Phone: 08-31-2021 14:50-0500 Systolic blood pressure 166 mm[Hg] Reese P House Work Phone: [facility] 250 DO Work Phone: 08-24-2021 12:10-0500 50 1 Reese P House Work Phone: [facility] 250 DO Work Phone: Comment on above: [id number] Encounters Encounter Date Encounter Type Care Provider Facility Start: 05-01-2024 End: 05-01-2024 ambulatory REESE P HOUSE Facility:[facility] Start: 04-29-2024 End: 04-29-2024 ambulatory DO Reese House Work Phone: [facility] Work Phone: Start: 04-29-2024 End: 04-29-2024 Patient encounter procedure DO Reese House Work Phone[facility] Work Phone: Start: 04-29-2024 Registered Recurring DO Trace s House [facility] Work Phone: Start: 04-29-2024 ambulatory Floresita Carlos Facility:[facility] Start: 04-08-2024 End: 04-08-2024 ambulatory REESE P HOUSE Facility:[facility] Start: 03-04-2024 End: 03-04-2024 ambulatory REESE P HOUSE Facility:[facility] Start: 01-31-2024 End: 01-31-2024 ambulatory REESE P HOUSE Facility:[facility] Start: 10-31-2023 End: 10-31-2023 ambulatory REESE P HOUSE Facility:[facility] Start: 10-25-2023 End: 10-25-2023 ambulatory DO Reese House Work Phone: [facility] Work Phone: Start: 10-25-2023 End: 10-25-2023 Registered Recurring DO Reese House Work Phone: [facility] Work Phone: Start: 08-10-2023 End: 08-10-2023 ambulatory [facility] Ambulatory Start: 08-10-2023 End: 08-10-2023 Office outpatient visit 25 minutes [facility] DO Work Phone: [facility] Comment on above: Coronary artery dise ase involving [place] coronary artery of [place] heart without angina pectoris; History of ST elevation myocardial infarction (STEMI); Primary hypertension; Ischemic cardiomyopathy; Mixed hyperlipidemia; Type 2 diabetes mellitus with other specified complication, unspecified whether snf insulin use ([facility]); Class 3 severe obesity due to excess calories with serious comorbidity and body mass index (BMI) of 40.0 to 44.9 in adult ([facility]); Rheumatoid arthritis, involving unspecified site, unspecified whether rheumatoid factor present ([facility] S/P right coronary artery (RCA) stent placement Start: 07-31-2023 End: 07-31-2023 ambulatory REESE NIXON Facility:[facility] Start: 07-24-2023 End: 07-24-2023 ambulatory DO Reese Nixon Work Phone: [facility] Work Phone: Start: 07-24-2023 End: 07-24-2023 Registered Recurring DO Reese Nixon Work Phone: [facility] Work Phone: Start: 07-06-2023 End: 07-06-2023 ambulatory REESE NIXON Facility:[facility] Start: 06-27-[address] Reese hurley [place] Facility: Start: 06-21-2023 Rx Renewal Reese P Hous e Work Phone: [facility] 250 DO Work Phone: Start: 04-20-2023 End: 04-20-2023 ambulatory DO Reese Nixon Work Phone: [facility] Work Phone: Start: 04-20-2023 End: 04-20-2023 Registered Recurring DO Reese Nixon Work Phone: [facility] Work Phone: Start: 2022 Rx Renewal Reese P Hous e Work Phone: [facility] 250 DO Work Phone: Start: 12-13-2022 Rx Renewal Reese P Hous e Work Phone: [facility] DO Work Phone: Start: 11-12-2022 End: 11-13-[address] LUKE HERRMANN Facility:[facility] Start: 11-08-[address] Luke Herrmann Facility: Start: 11-08-2022 FUV, Provider: Luke Herrmann, Status: Pen, Time: 10:10 AM Reese P House Work Phone: [facility] 250 DO Work Phone: Start: 11-08-2022 Office outpatient vi sit 25 minutes Reese P House Work Phone: [facility] 250 DO Work Phone: Start: 11-07-2022 Rx Renewal Reese P Hous e Work Phone: [facility] 250 DO Work Phone: Start: 10-31-2022 Rx Renewal Reese P Hous e Work Phone: [facility] 250 DO Work Phone: Start: 10-13-2022 End: 10-13-2022 ambulatory DO Reese House Work Phone: [facility] Work Phone: Start: 10-13-2022 End: 10-13-2022 Registered Recurring DO Reese House Work Phone: [facility] Work Phone: Start: 09-01-2022 FUV, Provider: Luke Herrmann, Status: Pen, Time: 11:40 AM Reese P House Work Phone: [facility] 250 DO Work Phone: Start: 08-30-2022 Rx Change Reese P Hous e Work Phone: [facility] 250 DO Work Phone: Start: 08-29-2022 End: 08-30-2022 ambulatory ZOE LATIF Facility:[facility] Start: 08-09-2022 Rx Renewal Reese P Hous e Work Phone: [facility] 250 DO Work Phone: Start: 06-16-2022 End: 06-17-[address] DOROTEO SAMAYOA Facility:[facility] Start: 05-30-2022 End: 05-31-2022 ambulatory ZOE LATIF Facility:[facility] Start: 04-30-2022 End: 05-01-[address] REESE NIXON Facility:[facility] Start: 03-21-2022 End: 03-22-[address] DOROTEO SAMAYOA Facility:[facility] Start: 03-01-2022 End: 03-01-2022 Admission to same day surgery center DO Reese Nixon Work Phone: [facility] [place] Start: 02-02-2022 End: 02-02-2022 Registered Recurring DO Reese Nixon Work Phone: [facility] Start: 01-26-2022 End: 01-27-[address] DOROTEO SAMAYOA Facility:[facility] Start: 12-28-2021 End: 12-28-2021 Admission to same day surgery center DO Reese Nixon Work Phone: [facility] [place] Start: 12-27-2021 End: 12-28-[address] DOROTEO SAMAYOA Facility:[facility] Start: 12-24-2021 End: 12-24-2021 Patient encounter procedure DO Reese Nixon Work Phone: [facility] Start: 12-21-2021 Rx Renewal Reese P Hous e Work Phone: [facility] 250 DO Work Phone: Start: 12-14-2021 End: 12-14-2021 Patient encounter procedure DO Reese Nixon Work Phone: [facility] Start: 12-08-2021 End: 12-09-[address] DOROTEO SAMAYOA Facility:[facility] Start: 11-16-2021 End: 11-16-2021 Admission to same day surgery center DO Reese House Work Phone: [facility] for [facility] Car Start: 11-04-2021 End: 11-04-2021 Patient encounter procedure DO Reese Nixon Work Phone: [facility] Start: 10-28-2021 Office outpatient vi sit 25 minutes Reese P House Work Phone: [facility] 250 DO Work Phone: Start: 10-11-2021 Office outpatient vi sit 5 minutes Reese P House Work Phone: [facility] 250 DO Work Phone: Start: 10-04-2021 Patient encounter procedure Reese P House Work Phone: [facility] [facility] [place] Work Phone: Start: 09-20-2021 Office outpatient vi sit 15 minutes Reese P House Work Phone: [facility] 250 DO Work Phone: Start: 09-20-2021 Rx Renewal Reese P Hous e Work Phone: [facility] 250 DO Work Phone: Start: 09-03-2021 Telephone encounter Reese P House Work Phone: [facility] 250 DO Work Phone: Start: 08-31-2021 Transitional care nikkie berry srvc 7 day discharge Reese P House Work Phone: [facility] 250 DO Work Phone: Procedures Date Procedure Procedure Detail Performing Clinician Start: 12-04-2023 Bilateral mammography D O Reese Nixon Work Phone: Start: 08-09-2023 History of placement of stent for coronary artery disease S/P right coronary artery (RCA) stent placement Luke Herrmann [employer] Work Phone: Start: 02-21-2023 Dual energy X-ray absorptiometry [employer] Phone: Start: 03-01-2022 CT of chest without contrast [employer] Phone: Start: 02-07-2022 Positron emission tomography with computed tomography [employer] Phone: Start: 12-28-2021 Mammography of left breast specimen DO [employer] Phone: Start: 12-28-2021 Biopsy of breast DO Janay stewart [employer] Phone: Start: 12-28-2021 Radionuclide sentine l lymph node study [employer] Phone: Start: 12-27-2021 Mammography of left breast DO [employer] Phone: Start: 12-27-2021 Ultrasonography guid ed needle localization of lesion of left breast DO [employer] Phone: Start: 11-16-2021 Mammography of left breast DO [employer] Phone: Start: 11-16-2021 Core needle biopsy o f breast using ultrasound guidance [employer] Phone: Start: 11-04-2021 Ultrasonography of l eft breast [employer] Phone: Start: 11-04-2021 Bilateral mammography D O [employer] Phone: Start: 10-04-2021 Echocardiography Trace [employer] Phone: History of placement of stent for coronary artery disease Status post insertion of drug eluting coronary artery stent [employer] Phone: History of placement of stent for coronary artery disease S/P right coronary artery (RCA) stent placement Luke Herrmann [employer] Work Phone: Lumpectomy of breast [employer] Phone: Operative procedure on ankle [employer] Phone: NEGATED: Highlighted row has not occurred! Total colonoscopy Reese Nixon Work Phone: Plan of Treatment Date Care Activity Detail Author Start: 08-10-2023 End: 08-10-2024 Alanine aminotransferase [Enzymatic activity/volume] in Serum or Plasma by With P-5'-P Alanine Aminotransferase Lab Routine Mixed hyperlipidemia Expected: 08/10/2023 (Approximate), Expires: 08/10/2024 [facility] Service Area Work Phone: Comment on above: Expected: 08/10/2023 (Approximate), Expi res: 08/10/2024 Start: 08-10-2023 End: 08-10-2024 Aspartate aminotransferase [Enzymatic activity/volume] in Serum or Plasma by With P-5'-P Aspartate Aminotransferase Lab Routine Mixed hyperlipidemia Expected: 08/10/2023 (Approximate), Expires: 08/10/2024 [facility] Work Phone: Comment on above: Expected: 08/10/2023 (Approximate), Expi res: 08/10/2024 Start: 08-10-2023 End: 08-10-2024 C reactive protein [Mass/volume] in Serum or Plasma by High sensitivity method High sensitivity CRP Lab Routine Coronary artery disease involving [place] coronary artery of [place] heart without angina pectoris Ischemic cardiomyopathy Expected: 08/10/2023 (Approximate), Expires: 08/10/2024 [facility] Work Phone: Comment on above: Expected: 08/10/2023 (Approximate), Expi res: 08/10/2024 Start: 08-10-2023 End: 08-10-2024 Lipid 1996 panel - Serum or Plasma Lipid Panel Lab Routine Mixed hyperlipidemia Expected: 08/10/2023 (Approximate), Expires: 08/10/2024 [facility] Work Phone: Comment on above: Expected: 08/10/2023 (Approximate), Expi res: 08/10/2024 Start: 06-27-2023 FUV, Provider: Luke Herrmann, Status: Pen, Time: 11:20 AM FUV, Provider: Luke Herrmann, Status: Pen, Time: 11:20 AM -[facility] 250 DO Work Phone: Start: 06-16-2023 Influenza vaccination Influenza Vaccine (#1) [facility] Start: 11-08-2022 FUV, Provider: Luke Herrmann, Status: Pen, Time: 10:10 AM FUV, Provider: Luke Herrmann, Status: Pen, Time: 10:10 AM -[facility] 250 DO Work Phone: Start: 09-01-2022 FUV, Provider: Luke Herrmann, Status: Pen, Time: 11:40 AM FUV, Provider: Luke Herrmann, Status: Pen, Time: 11:40 AM -[facility] 250 DO Work Phone: Start: 05-10-2022 FUV, Provider: Luke Herrmann, Status: Pen, Time: 1:50 PM FUV, Provider: Luke Herrmann, Status: Pen, Time: 1:50 PM -[facility] 250 DO Work Phone: Start: 12-07-2021 FUV, Provider: Luke Herrmann, Status: Pen, Time: 2:00 PM FUV, Provider: Luke Herrmann, Status: Pen, Time: 2:00 PM -[facility] 250 DO Work Phone: Start: 10-27-2021 FUV, Provider: Luke Herrmann, Status: Pen, Time: 11:30 AM FUV, Provider: Luke Herrmann, Status: Pen, Time: 11:30 AM -[facility] 250 DO Work Phone: Start: 10-11-2021 NURSEVST, Provider: ROSA STEPHENSON FILLING MACHINE OPERATOR 1,[id number], Status: Pen, Time: 1:00 PM NURSEVST, Provider: ROSA STEPHENSON FILLING MACHINE OPERATOR 1,[id number], Status: Pen, Time: 1:00 PM -[facility] [facility] [place] Work Phone: Start: 10-04-2021 ECHO, Provider: ARGENTINA MADELAINEI ULTRASOUND 01,[id number], Status: Pen, Time: 1:30 PM ECHO, Provider: [place] HHVI ULTRASOUND 01,[id number], Status: Pen, Time: 1:30 PM [facility] 250 DO Work Phone: Start: 10-04-2021 FUV, Provider: Salima Penaloza, Status: Pen, Time: 12:30 PM FUV, Provider: Salima Penaloza, Status: Pen, Time: 12:30 PM [facility] 250 DO Work Phone: Start: 09-20-2021 FUV, Provider: Salima Penaloza, Status: Pen, Time: 12:30 PM FUV, Provider: Salima Penaloza, Status: Pen, Time: 12:30 PM -[facility] 250 DO Work Phone: Start: 2006 Zoster Vaccines (1 of 2) Zoster Vaccines (1 of 2) [facility] Start: 1978 DTaP/Tdap/Td Vaccines (1 - Tdap) DTaP/Tdap/Td Vaccines (1 - Tdap) [facility] Start: 12-23-1975 Urine screening for protein Diabetes: Urine Protein Screening [facility] Start: 1974 Hepatitis C screening Hepatitis C Screening [facility] Start: 1966 Diabetic foot examination Diabetes: Foot Exam [facility] Start: 1966 Glaucoma screening Diabetes: Retinopathy Screening [facility] Start: 1962 Pneumococcal Vaccine: 65+ Years (1 - PCV) Pneumococcal Vaccine: 65+ Years (1 - PCV) [facility] Start: 06-24-1957 COVID-19 Vaccine (#1) COVID-19 Vaccine (#1) [facility] Start: 1956 Hemoglobin A1c measurement Diabetes: Hemoglobin A1C [facility] Start: 1956 Lipid panel Lipid Panel [facility] Start: 1956 Medicare Annual Wellness Visit Medicare Annual Wellness Visit (AWV) [facility] Start: 1956 Screening for malignant neoplasm of colon [facility] Start: 1956 Screening for osteoporosis Bone Density Scan [facility] Start: 1956 Thyroid stimulating hormone measurement TSH Level [facility] Computed tomography for radiotherapy planning [facility] MG Breast - bilatera l Diagnostic [facility] Patient referral [facility] Work Phone: [facility] Payers Date Payer Category Payer Unknown 2022 Self-pay [id number] 2022 Unknown [id number] 2022 Unknown [id number] 2014 Medicare MEDICARE MEDICAR E PART A AND B [id number] 2014-Present [address] [place] [address] [id number] 1959 Medicare [id number] 1959 Unknown [id number] 1959 Unknown [id number] 1956 Unknown [id number] [id number]3 1956 Unknown [id number] 2.16.840.1.574064.3.579.2.593 1956 Unknown [id number] 2.16.840.1.612565.3.579.2.593 1956 Unknown [id number] 2.16.840.1.547214.3.579.2.593 1956 Unknown [id number] 2.16.840.1.617470.3.579.2.593 1956 Unknown [id number] 2.16.840.1.249533.3.579.2.593 1956 Unknown [id number] 2.16.840.1.494621.3.579.2.593 1956 Unknown [id number] 2.16.840.1.263270.3.579.2.593 1956 Unknown [id number] 2.16.840.1.911194.3.579.2.593 1956 Unknown [id number] 2.16.840.1.921172.3.579.2.593 1956 Unknown [id number] 2.16.840.1.182404.3.579.2.593 1956 Unknown [id number] 2.16.840.1.461647.3.579.2.593 1956 Unknown [id number] 2.16.840.1.886543.3.579.2.356 1956 Unknown [id number] 2.16.840.1.063148.3.579.2.356 1956 Unknown [id number] 2.16.840.1.613900.3.579.2.1244 1956 Unknown [id number] 2.16.840.1.107345.3.579.2.718 1956 Unknown [id number] 2.16.840.1.786313.3.579.2.718 1956 Unknown [id number] 2.16.840.1.684177.3.579.2.718 1956 Unknown [id number] 2.16.840.1.665534.3.579.2.718 1956 Unknown [id number] 2.16.840.1.902690.3.579.2.718 Unknown [id number] 2.16.840.1.350869.3.579.2.531 Social History Date Type Detail Facility Start: 08-10-2023 No alcohol use No alcohol use [facility] [facility] DO Work Phone: Comment on above: 2 cups daily, diet p op occasional; 1/2 cup daily; Start: 01-13-2022 End: 04-29-2024 Tobacco smoking status NHIS Never smoked tobacco (finding) [facility] Start: 1955 Sex Assigned At Female F [facility] Start: 08-10-2023 Tobacco use and exposure Smokeless tobacco non-user [facility] Work Phone: Start: 08-10-2023 Alcohol intake Lifetime non-d amanda (finding) [facility] Work Phone: Start: 08-10-2023 Tobacco use panel [facility] Work Phone: Start: 1955 Sex Assigned At Not on file [facility] Work Phone: Start: 07-31-2023 End: 08-10-2023 Exposure to SARS-CoV-2 (event) Not sure [facility] Medical Equipment Procedure Code Equipment Code Equipment Origin al Text Equipment Identifier Dates Biopsy, breast, with lumpectomy Imaging lesion localization marker, implantable [id number] FDA Start: 12-28-2021 Drug-eluting coronary artery stent, [id number] lymer-coated [id number] FDA Start: 08-23-2021 Drug-eluting coronary artery stent, [id number]-mk lymer-coated [id number] FDA Start: 08-23-2021 Goals Date Patient Goal [...] nitrate usage recurrent hospitalizations. She had inferior [place] July 2021 with AngioJet thrombectomy and 2 [...] No diagnosis found. documented in this encounter [facility] Work Phone: 08-10-2023 Instructions Ajith Metz [...] of your visit. documented in this encounter [facility] Work Phone: 07-25-2023 Progress note Note Date/Time July 24, 2023 11:51am [facility] [place] [facility] [place] [id number] Hem/Onc Follow Up Note - OP Signed Patient: Chucky Dunlap MR#: [id number] : 1955 Acct:[id number] Age/Sex: 67 / F Type: REG RCR [...] to Dr. Latif of pulmonary medicine at [place]. Her most recent follow-up with him after [...] scan was performed February 12, 2021 at [facility] revealing baseline osteopenia/decreased bone density. [...] the left lung base. Dr. Latif at [place] referred her to Dr. Patel of CT [...] PET/CT. Pathology invasive lobular carcinoma, ER 95%, [place] 0%, HER-2 nonamplified by FISH. 2. History [...] environmental allergies and food allergies. [facility] - Medical History Medical History: Medical [...] PET/CT. Pathology invasive lobular carcinoma, ER 95%, [place] 0%, HER-2 nonamplified by FISH. Oncotype DX [...] these nodules. We are requesting her outside [place] CT for our records. 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 Dictated By: Lizzie Galeas APRN DD/ [id number] Signed By: <Electronically signed by DAY Galeas> 07/25/23 [id number] [facility] Work Phone: 1(435) 545-298807-06-2023 Progress note Author Lizzie Galeas [facility] April 20, 2023 1:09pm Note Date/Time April 20, 2023 12:27 pm [facility] at [address] [address] Hem/Onc Follow Up Note - OP Signed Patient: Chucky Dunlap MR#: [id number] : 1955 Acct:[id number] Age/Sex: 67 / F Type: REG RCR [...] to Dr. Latif of pulmonary medicine at [place]. Her most recent follow-up with him after [...] scan was performed February 12, 2021 at [facility] revealing baseline osteopenia/decreased bone density. [...] the left lung base. Dr. Latif at [place] referred her to Dr. Patel of CT [...] was performed 11/24/2021 revealing invasive lobular carcinoma, [place] histologic grade 2 (3+2+1 equal 6). 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 Estrogen receptor +95%, progesterone receptor -0%, HER-2/ortiz was equivocal by IHC but negative by FISH. She was referred to Dr. Gonzalez for left breast lumpectomy with sentinel lymphnode biopsy. This revealed invasive lobular carcinoma, [place] histologic grade 2, size 2.4 cm, associated [...] PET/CT. Pathology invasive lobular carcinoma, ER 95%, [place] 0%, HER-2 nonamplified by FISH. 2. History [...] environmental allergies and food allergies. [facility] - Medical History Medical History: Medical [...] PET/CT. Pathology invasive lobular carcinoma, ER 95%, [place] 0%, HER-2 nonamplified by FISH. Oncotype DX [...] these nodules. We are requesting her outside [place] CT for our records. 04/20/2023: Chucky is [...] continue to follow with serial imaging at [facility]. Last CT scan at [facility] - August2022. (3) ST elevation (STEMI) myocardial infarction The patient had ST elevation [place] with left heart catheterization August 2021 showing [...] for coordination of care (as documented) and brim-xw-ziha counseling of patient and/or family. Dictated By: Lizzie Galeas APRN DD/ [id number] Signed By: <Electronically signed by DAY Galeas> 04/20/23 [id number] [facility] Work Phone: 1(752) 224-785212-29-2022 Progress note Author Floresita Gonzalez [facility] October 13, 2022 9:14am Note Date/Time October 13, 2022 8:45am [place] [address] Hem/Onc Follow Up Note - OP Signed Patient: Chucky Dunlap MR#: [id number] : 1955 Acct:[id number] Age/Sex: 66 / F Type: REG RCR [...] to Dr. Latif of pulmonary medicine at [place]. Her most recent follow-up with him after [...] self exam. She follows closely with Dr. Gonzaelz (will see next week) and will see [...] scan was performed February 12, 2021 at [facility] revealing baseline osteopenia/decreased bone density. [...] the left lung base. Dr. Latif at [place] referred her to Dr. Patel of CT [...] was performed 11/24/2021 revealing invasive lobular carcinoma, [place] histologic grade 2 (3+2+1 equal 6). 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 Estrogen receptor +95%, progesterone receptor -0%, HER-2/ortiz was equivocal by IHC but negative by FISH. She was referred to Dr. Itzkowitz for left breast lumpectomy with sentinel lymph [...] PET/CT. Pathology invasive lobular carcinoma, ER 95%, [place] 0%, HER-2 nonamplified by FISH. 2. History [...] environmental allergies and food allergies. [facility] - History Attestation statement: The following [...] review - Impressions Outside CT imaging from [place] is being requested for her records. Followed by Dr. Latif. Assessment and Plan - TNM Staging Staging: T2 N0 MX (2.4 cm, 4 lymph nodes negative) left breast cancer found incidentally on PET/CT. Pathology invasive lobular carcinoma, ER 95%, [place] 0%, HER-2 nonamplified by FISH. Oncotype DX [...] these nodules. We are requesting her outside [place] CT for our records. Moderate complexity visit over [...] continue to follow with serial imaging at [facility]. (3) ST elevation (STEMI) myocardial infarction The patient had ST elevation [place] with left heart catheterization August 2021 showing [...] for coordination of care (as documented) and gmvn-ui-[id number] counseling of patient and/or family. Dictated By: Floresita Gonzalez MD DD/ 0845 Signed By: <Electronically signed by MD Floresita Gonzalez> 10/13/22 5414 [facility] Work Phone: 1(837) 827-267406-20-2022 Progress note Author Della Louis [facility] April 04, 2022 3:32pm Note Date/Time April 04, 2022 11:2 3am [facility] [place] [address] Rad Onc Follow Up Note - OP Signed Patient: Chucky Dunlap MR#: [id number] : 1955 Acct:[id number] Age/Sex: 66 / F Type: REG RCR Copies to: MD Reese Paulino DO Fredric Itzkowitz, ~ Assessment & Plan (1) Breast cancer, left [...] was LCIS with associated microcalcifications. ER positive [place] negative HER-2 negative by FISH. December 28, [...] signed by Della Louis MD> 04/04/22 1532 [facility] Work Phone: 1([phone]) 662-700906-20-2022 Progress note Author Lizzie Galeas [facility] April 04, 2022 12:49pm Note Date/Time April 04, 2022 11:4 8am [facility] [place] [address] Hem/Onc Follow Up Note - OP Signed Patient: Chucky Dunlap MR#: [id number] : 1955 Acct:[id number] Age/Sex: 66 / F Type: REG RCR [...] scan was performed February 12, 2021 at [facility] revealing baseline osteopenia/decreased bone density. [...] the left lung base. Dr. Latif at [place] referred her to Dr. Patel of CT [...] was performed 11/24/2021 revealing invasive lobular carcinoma, [place] histologic grade 2 (3+2+1 equal 6). 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 Estrogen receptor +95%, progesterone receptor -0%, HER-2/ortiz was equivocal by IHC but negative by FISH. She was referred to Dr. Gonzalez for left breast lumpectomy with sentinel lymphnode biopsy. This revealed invasive lobular carcinoma, [place] histologic grade 2, size 2.4 cm, associated [...] PET/CT. Pathology invasive lobular carcinoma, ER 95%, [place] 0%, HER-2 nonamplified by FISH. 2. History [...] environmental allergies and food allergies. [facility] - Medical History Medical History: Medical [...] Results - Impressions Patient: Chucky Dunlap MR#: [id number] : 1955 Acct:[id number] Age/Sex: 66 / F ADM Date: 2 Loc: Room: Type: [facility] Attending Dr: Floresita Gonzalez MD Ordering Provider: [...] PET/CT. Pathology invasive lobular carcinoma, ER 95%, [place] 0%, HER-2 nonamplified by FISH. Oncotype DX [...] myocardial infarction The patient had ST elevation [place] with left heart catheterization August 2021 showing [...] for coordination of care (as documented) and qhjr-qy-juqf counseling of patient and/or family. Dictated By: Lizzie Galeas APRN DD/ 1148 Signed By: <Electronically signed by DAY Galeas> 04/04/22 4713 [facility] Work Phone: 1(869) 826-998104-21-2022 Progress note Author Floresita Carlos [facility] February 03, 2022 12:11pm Note Date/Time February 02, 2022 1:5 5pm [facility] [place] [id number] Hem/Onc Follow Up Note - OP Signed Patient: Chucky Dunlap MR#: [id number] : 1955 Acct:[id number] Age/Sex: 66 / F Type: REG RCR [...] scan was performed February 12, 2021 at [facility] revealing baseline osteopenia/decreased bone density. [...] the left lung base. Dr. Latif at [place] referred her to Dr. Patel of CT [...] was performed 11/24/2021 revealing invasive lobular carcinoma, [place] histologic grade 2 (3+2+1 equal 6). Lobular [...] PET/CT. Pathology invasive lobular carcinoma, ER 95%, [place] 0%, HER-2 nonamplified by FISH. 2. History [...] M.D.09/29/2021 11:44 AM 02/12/2021 DEXA scan at [facility]: AP spine T score -1.4, osteopenia Left femoral neck T score -1.3, osteopenia Right femoral neck T score -1.1, osteopenia Assessment and Plan - TNM Staging Staging: T2 N0 MX (2.4 cm, 4 lymph nodes negative) left breast cancer found incidentally on PET/CT. Pathology invasive lobular carcinoma, ER 95%, [place] 0%, HER-2 nonamplified by FISH. Oncotype DX [...] myocardial infarction The patient had ST elevation [place] with left heart catheterization August 2021 showing [...] for coordination of care (as documented) and [id number] counseling of patient and/or family. Dictated By: Floresita Gonzalez MD DD/ 1353 Signed By: <Electronically signed by MD Floresita Gonzalez> 02/03/22 1211 [facility] Work Phone: 1([phone]) 589-553603-31-2022 Consult note Author Floresita Gonzalez [facility] January 13, 2022 3:36pm Note Date/Time January 13, 2022 8:3 2am [facility] [place] [address] Hem/Onc Consult Note - OP Signed Patient: Chucky Dunlap MR#: [id number] : 1955 Acct:[id number] Age/Sex: 66 / F Type: REG RCR [...] node negative invasive lobular carcinoma. ER 95%, KY 0, HER-2/ortiz 2+ by IHC (indeterminate) but [...] the left lung base. Dr. Latif at [place] referred her to Dr. Patel of CT [...] was performed 11/24/2021 revealing invasive lobular carcinoma, [place] histologic grade 2 (3+2+1 equal 6). Lobular [...] determine further plan of therapy. [facility] - History Attestation statement: The following [...] PET/CT. Pathology invasive lobular carcinoma, ER 95%, KY 0%, HER-2 nonamplified by FISH. 2. History [...] PET/CT. Pathology invasive lobular carcinoma, ER 95%, [place] 0%, HER-2 nonamplified by FISH. (1) Malignant [...] myocardial infarction The patient had ST elevation [place] with left heart catheterization August 2021 showing [...] for coordination of care (as documented) and ogws-vt-uhgh counseling of patient and/or family. Dictated By: Floresita Gonzalez MD DD/ 9832 Signed By: <Electronically signed by MD Floresita Gonzalez> 01/13/22 1536 [facility] Work Phone: [phone] Consult note Author Della Louis [facility] January 13, 2022 10:04am Note Date/Time January 12, 2022 3:4 7pm [place] [address] Rad Onc Consult Note - OP Signed Patient: Chucky Dunlap MR#: [id number] : 1955 Acct:[id number] Age/Sex: 66 / F Type: REG RCR Copies to: MD Reese Paulino DO Fredric Itzkowitz, ~ Assessment & Plan (1) Breast cancer, left [...] was LCIS with associated microcalcifications. ER positive [place] negative HER-2 negative by FISH. December 28, [...] as well as antihormonal therapy. [facility] - Medical History Medical History: Medical [...] abdomen. Dictated By: Della Louis MD DD/ 1533 Signed By: <Electronically signed by Della Louis MD> 01/13/22 1004 [facility] Work Phone: Chief complaint Narrative - [...] use either lower dose ARB or HAYLEE -[facility] 250 DO Work Phone: Chief complaint Narrative [...] use either lower dose ARB or HAYLEE -[facility] [place] [address] [place] Work Phone: Chief complaint Narrative - Reported* [...] lower dose ARB or HAYLEE [facility] Work Phone: Evaluation noteNo assessment information available [facility] Work Phone: Evaluation note* Diagnosis Onset Date Resolution Status Breast cancer, left breast a cute ST elevation (STEMI) myocardial infarction acute Abnormal positron emission t omography (PET) scan of head chronic [id number] chronic Pulmonary nodules/lesions, multiple chronic [facility] Work Phone: Evaluation note* Diagnosis Onset Date Resolution Status Breast cancer, left breast a cute Abnormal positron emission t omography (PET) scan of head chronic [id number] chronic Osteopenia chronic Pulmonary nodules/lesions, multiple chronic ST elevation (STEMI) myocardial infarction chronic Use of aromatase inhibitors chronic [facility] Work Phone: Evaluation note* Diagnosis Onset Date Resolution Status Breast cancer, left breast a cute Abnormal positron emission t omography (PET) scan of head chronic [id number] chronic Osteopenia chronic Pulmonary nodules/lesions, multiple chronic Rheumatoid arthritis chronic Skin candidiasis chronic ST elevation (STEMI) myocardial infarction chronic Use of aromatase inhibitors chronic [facility] Work Phone: Evaluation note* Diagnosis Coronary artery disease involving [place] coronary artery of [place] heart without angina pectoris History of ST elevation myocardial infarction (STEMI) Primary hypertension Unspecified essential hypertension Ischemic cardiomyopathy Other specified forms of chronic ischemic heart disease Mixed hyperlipidemia Type 2 diabetes mellitus with other specified complication, unspecified whether long winder tender insulin use ([facility]) Class 3 severe obesity due to excess calories with serious comorbidity and body mass index (BMI) of 40.0 to 44.9 in adult ([facility]) Rheumatoid arthritis, involving unspecified site, unspecified whether rheumatoid factor present ([facility]) S/P right coronary artery (RCA) stent placement documented in this encounter [facility] Work Phone: Evaluation note* Diagnosis Onset Date Resolution Status Breast cancer, left breast a cute Abnormal positron emission t omography (PET) scan of head chronic [id number] chronic Osteopenia chronic Pulmonary nodules/lesions, multiple chronic Rheumatoid arthritis chronic ST elevation (STEMI) myocardial infarction chronic Use of aromatase inhibitors chronic Skin candidiasis resolved [facility] Work Phone: History of Present illness [...] denies medication side effects. Due For: electrolytes. [facility] [address] DO Work Phone: Hospital Discharge instructionsAmbulatory Orders* Obtain Medical Records From: Time Frame: 1 Day, Location: Determined By Patient * Place on Tumor Board Time Frame: 1 Week, Location: Determined By Patient [facility] Work Phone: Progress note Author Floresita Gonzalez [facility] October 13, 2022 9:14am Note Date/Time October 13, 2022 8:45am [facility] [address] [address] Hem/Onc Follow Up Note - OP Signed Patient: Chucky Dunlap MR#: [id number] : 1955 Acct:[id number] Age/Sex: 66 / F Type: REG RCR [...] to Dr. Latif of pulmonary medicine at [place]. Her most recent follow-up with him after [...] scan was performed February 12, 2021 at [facility] revealing baseline osteopenia/decreased bone density. [...] the left lung base. Dr. Latif at [place] referred her to Dr. Patel of CT [...] was performed 11/24/2021 revealing invasive lobular carcinoma, [place] histologic grade 2 (3+2+1 equal 6). 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 Estrogen receptor +95%, progesterone receptor -0%, HER-2/ortiz was equivocal by IHC but negative by FISH. She was referred to Dr. Gonzalez for left breast lumpectomy with sentinel lymph node biopsy. This revealed invasive lobular carcinoma, [place] histologic grade 2, size 2.4 cm, associated [...] PET/CT. Pathology invasive lobular carcinoma, ER 95%, [place] 0%, HER-2 nonamplified by FISH. 2. History [...] review - Impressions Outside CT imaging from [place] is being requested for her records. Followed by Dr. Latif. Assessment and Plan - TNM Staging Staging: T2 N0 MX (2.4 cm, 4 lymph nodes negative) left breast cancer found incidentally on PET/CT. Pathology invasive lobular carcinoma, ER 95%, [place] 0%, HER-2 nonamplified by FISH. Oncotype DX [...] these nodules. We are requesting her outside [place] CT for our records. Moderate complexity visit over [...] continue to follow with serial imaging at [facility]. (3) ST elevation (STEMI) myocardial infarction The patient had ST elevation [place] with left heart catheterization August 2021 showing [...] for coordination of care (as documented) and gbbc-qi-pjtc counseling of patient and/or family. Dictated By: Floresita Gonzalez MD DD/ 0845 Signed By: <Electronically signed by MD Floresita Gonzalez> 10/13/22 7773 [facility] Work Phone: Reason for referral (narrative)* Consultation (Routine) - Authorized Specialty Diagnoses / Procedures Referred By Letha t Referred To Contact Cardiology Diagnoses Coronary artery disease involving [place] coronary artery of [place] heart without angina pectoris Primary hypertension Ischemic cardiomyopathy Procedures Follow Up In Cardiology Luke Herrmann DO [address] [facility] [address] [place] [address] Luke Herrmann DO [address] [facility] [address] [place] [address] Referral ID Status Reason Start Date Expiration Date V isits Requested Visits Authorized [id number] Authorized 08/10/2023 08/09/2024 1 1 [facility] Work Phone: Family History No Family [...] cerebrovas cular accident (CVA): Brother(V17.1, Z82.3) Status:Active Relationship Condition Age at Onset Recorded Date/T tae brother Cerebrovascular accident (CVA) Unknown mother History of heart surgery Unknown father Accidental Unknown brother Coronary artery disease Unknown sister Coronary artery disease Unknown Chief Complaint * I am doing better [...] cardiovascular concerns: * None * No prior EJFF w/u Pt here today for BP check [...] * She sustained a very large inferior [place] in August 2021 with extensive AngioJet thrombectomy [...] time. 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 Summary Purpose [...] positron emission tomography (PET) scan of head [id number] Pulmonary nodules/lesions, multiple Chief Complaint r91.8 Chief Complaint Breast Cancer Reason for Visit Breast cancer, left breast Abnormal positron emission tomography (PET) scan of head [id number] Osteopenia Pulmonary nodules/lesions, multiple ST elevation (STEMI) myocardial infarction Use of aromatase inhibitors Chief Complaint Breast Cancer Reason for Visit Breast cancer, left breast Abnormal positron emission tomography (PET) scan of head [id number] Osteopenia Pulmonary nodules/lesions, multiple Rheumatoid arthritis Skin candidiasis ST elevation (STEMI) myocardial infarction Use of aromatase inhibitors Chief Complaint Breast Cancer Reason for Visit Breast cancer, left breast Abnormal positron emission tomography (PET) scan of head [id number] Osteopenia Pulmonary nodules/lesions, multiple Rheumatoid arthritis ST elevation (STEMI) myocardial infarction Use of aromatase inhibitors Skin candidiasis Additional Source Comments INFORMATION SOURCE (unrecogn ized section and content) DATE CREATED AUTHOR 10/06/2021 [facility] DATE CREATED AUTHOR AUTHOR'S ORGANIZ ATION 10/29/2021 [employer] DATE CREATED AUTHOR AUTHOR'S ORGANIZ ATION 11/14/2022 [facility] DATE CREATED AUTHOR AUTHOR'S ORGANIZ ATION 06/28/2023 [facility] DATE CREATED AUTHOR AUTHOR'S ORGANIZ ATION 08/13/2023 [facility] DATE CREATED AUTHOR AUTHOR'S ORGANIZ ATION 05/02/2024 [facility] DATE CREATED AUTHOR AUTHOR'S ORGANIZ ATION 05/03/2024 [facility] Care Teams (unrecognized sec tion and content) Team Status: Inactive Member Role Status Dates Reese Nixon DO Primary Care Provider Active Salty Gonzalez DO Attending Provider Active Team Status: Inactive Member Role Status Dates Reese House , DO Primary Care Provider Active Marcin Patel MD Attending Provider Active Team Status: Active Member Role Status Dates Reese Nixon DO Primary Care Provider Active Team Status: Active Member Role Status Dates Reese Nixon DO Primary Care Provider Active Salty Gonzalez , Referring Provider Active Floresita Gonzalez MD Attending Provider Active [employer] Relationship Specialty Start Date End Date Reese Nixon DO [address] [place] [address] PCP - General 10/16/99 Team Status: Active Member Role Status Dates Reese Nixon DO Primary Care Provider Active Start: April 29, 2024 Salty Gonzalez , Referring Provider Active Start: April 29, 2024 Floresita Gonzalez MD Attending Provider Active Start: April 29, 2024 Team Status: Inactive Member Role Status Dates Shannan Miller APRN Attending Provider Active Start: April 29, 2024 End: April 29, 2024 Reese Nixon DO Primary Care Provider Active Start: April 29, 2024 End: April 29, 2024 Goals (unrecognized section and content) Goals may [...] BE BASED ON THE PRIMARY CLINICAL RECORDS. [employer] provides no warranty or guarantee of the accuracy or completeness of information in this document.
--- NOTE | 2024-05-19 12:45 | PC.NURSE ---
pain is to left buttock and radiates ddown left leg, denies pain in flank area with assessment
--- NOTE | 2024-05-19 12:55 | CT_ITS ---
[address] [address] Patient Name: CHUCKY DUNLAP MRN: [id number] date: 1955 Sex: F Assigned Patient Location: ER Current Patient Location: Accession/Order Number: [id number] Exam Date: 05/19/2024 13:20 Report Date: 05/19/2024 14:29 At the request of: SINA OROPEZA Procedure: CT lumbar spine wo con EXAM: CT lumbar spine wo con COMPARISON: 02/07/2022 PETCT scan. CLINICAL INDICATION: low back pain/sciatica TECHNIQUE: Multiplanar CT images of the lumbar spine without contrast. Dose reduction techniques were achieved by using automated exposure control and/or adjustment of mA and/or kV according to patient size and/or use of iterative reconstruction technique. FINDINGS: No CT evidence of acute osseous abnormality. No prevertebral soft tissue swelling. No suspicious osseous lesions. No spondylolisthesis. Mild dextrocurvature. Mild multilevel degenerative disc disease, worst in the lower lumbar spine. Scattered moderate facet arthropathy. Mild-moderate spinal canal and left lateral recess narrowing L2-L4. Mild-moderate spinal canal narrowing and moderate right lateral recess narrowing L4-L5. No acute findings in the visualized abdomen/pelvis. CT/CT lumbar spine wo con IMPRESSION: No acute findings. Degenerative changes detailed above. Electronically authenticated by: АНДРЕЙ CHUA Date: 05/19/2024 14:29
[2024-05-19] MEDS: KETOROLAC TROMETHAMINE 30 MG/ML VIAL 15 MG IVP ×2 (13:11→15:05)
--- NOTE | 2024-05-19 13:12 | ED.GENADUL1 ---
HPI HPI - General Adult General Chief complaint: Back Pain/Injury Stated complaint: FLANK PAIN Time Seen by Provider: 05/19/24 12:30 Source: patient Mode of arrival: walk-in History of Present Illness HPI narrative: Patient presents to ED complaining of low back pain and leg pain. She states it started over the past couple of days with left buttock pain that radiates down into her leg. She reports weakness in that leg and some tingling. No loss of bowel or bladder function. No abdominal pain no chest pain. She did denies any history of sciatic nerve pain or any back injury. No fall or trauma. She just reports the pain has been keeping her up for the past day or so because it radiates into her leg and she has trouble getting around due to the pain. Related Data Home Medications ?Medication ?Instructions ?Recorded ?Confirmed carvedilol 12.5 mg tablet 12.5 mg PO Q12H 11/17/23 05/19/24 clopidogrel 75 mg tablet 75 mg PO DAILY 11/17/23 05/19/24 folic acid 1 mg tablet 1 mg PO DAILY 11/17/23 05/19/24 insulin degludec 100 unit/mL 30 unit subcut BID 11/17/23 05/19/24 subcutaneous solution (Tresiba U-100 Insulin) letrozole 2.5 mg tablet 2.5 mg PO Q24H 11/17/23 05/19/24 levothyroxine 112 mcg tablet 112 mcg PO DAILY 11/17/23 05/19/24 methotrexate sodium (PF) 25 mg/mL 20 mg subcut DAILY 11/17/23 05/19/24 injection solution nitroglycerin 0.4 mg sublingual 0.4 mg sublingual Q5M 11/17/23 05/19/24 tablet (Nitrostat) oxycodone-acetaminophen 5 mg-325 2 tab PO Q6H PRN pain 11/17/23 05/19/24 mg tablet prednisone 1 mg tablet 1 mg PO DAILY 11/17/23 05/19/24 sacubitril 49 mg-valsartan 51 mg 1 tab PO BID 11/17/23 05/19/24 tablet (Entresto) spironolactone 25 mg tablet 25 mg PO DAILY 11/17/23 05/19/24 tocilizumab 400 mg/20 mL (20 IV 05/19/24 mg/mL) intravenous solution (Actemra) Previous Rx's ?Medication ?Instructions ?Recorded cyclobenzaprine 10 mg tablet 10 mg PO TID #10 tabs 05/19/24 Allergies Allergy/AdvReac Type Severity Reaction Status Date / Time No Known Drug Allergies Allergy Verified 11/17/23 09:01 Opioid HPI Opioid Management Most Recent Opioid Data: Last Pain Scale 5 05/19/24 13:55 Last ED Pain Assessment 05/19/24 13:55 Last MAR Pain Assessment 05/19/24 15:05 Review of Systems ROS Status of ROS 10 or more systems reviewed and unremarkable except as noted in history and below [facility] Medical History (Updated 05/19/24 @ 14:50 by Elda Fisher DO) Lobular breast cancer ?C50.919 - Malignant neoplasm of unspecified site of unspecified female breast (ICD-10) Fracture of ankle, left, open ?S82.892B - Other fracture of left lower leg, initial encounter for open fracture type I or II (ICD-10) Ankle fracture, left ?S82.892A - Other fracture of left lower leg, initial encounter for closed fracture (ICD-10) Myocardial infarct ?I21.9 - Acute myocardial infarction, unspecified (ICD-10) Hypertension ?I10 - Essential (primary) hypertension (ICD-10) Psoriasis ?L40.9 - Psoriasis, unspecified (ICD-10) Rheumatoid arthritis ?M06.9 - Rheumatoid arthritis, unspecified (ICD-10) Obesity ?E66.9 - Obesity, unspecified (ICD-10) Chronic pain ?G89.29 - Other chronic pain (ICD-10) Diabetes ?E11.9 - Type 2 diabetes mellitus without complications (ICD-10) Hypothyroidism ?E03.9 - Hypothyroidism, unspecified (ICD-10) Surgical History (Updated 05/19/24 @ 12:56 by Radha Fitzgerald) History of heart artery stent ?Z95.5 - Presence of coronary angioplasty implant and graft (ICD-10) H/O cardiac catheterization ?Z98.890 - Other specified postprocedural states (ICD-10) History of arthroscopic knee surgery ?Z98.890 - Other specified postprocedural states (ICD-10) Exam Narrative Exam Narrative: General: alert, no acute distress Cardiovascular: regular rate and rhythm, normal peripheral perfusion. Respiratory: Lungs CTA, respirations non labored. Extremities: no deformity, no trauma. Tenderness to palpation in the left lumbar paraspinal area left buttock area in the distribution of sciatic nerve. Normal distal pulses and sensation. Patient does have some weakness when trying to lift the left lower extremity up off the bed. She was able to stand and get in and out of the bed without too much difficulty. Neurological: oriented x 4, LOC appropriate for age. Constitutional Vital Signs, click to edit/add: Last Vital Signs Temp 97.9 F 05/19/24 12:34 Pulse 88 05/19/24 12:34 Resp 18 05/19/24 12:34 BP 140/98 H 05/19/24 12:34 Pulse Ox 98 05/19/24 12:34 O2 Del Method Room Air 05/19/24 12:34 Course Vital Signs Vital signs: Vital Signs Temperature 97.9 F 05/19/24 12:34 Pulse Rate 88 05/19/24 12:34 Respiratory Rate 18 05/19/24 12:34 Blood Pressure 140/98 H 05/19/24 12:34 Pulse Oximetry 98 05/19/24 12:34 Oxygen Delivery Method Room Air 05/19/24 12:34 Temperature 97.9 F 05/19/24 12:34 Pulse Rate 88 05/19/24 12:34 Respiratory Rate 18 05/19/24 12:34 Blood Pressure 140/98 H 05/19/24 12:34 Pulse Oximetry 98 05/19/24 12:34 Oxygen Delivery Method Room Air 05/19/24 12:34 Medical Decision Making MDM Narrative Medical decision making narrative: Patient was feeling better after IV Toradol. She ambulated to the bathroom and back without difficulty. Patient will be sent home with medication for muscle relaxation. She has Percocet at home. Follow-up with family doctor as she may need an MRI of her spine in the near future. Return to ED if worsening symptoms numbness tingling or weakness. Patient is comfortable care plan for home Differential Diagnosis Differential Diagnosis: Sciatica, lumbar strain lumbar sprain cauda equina Medical Records Medical records reviewed: Yes I reviewed the patient's medical records Lab Data Lab results reviewed: Yes I reviewed the patient's lab results Labs: Lab Results 05/19/24 05/19/24 Range/Units 13:18 13:20 WBC 6.5 (4.0-11.0) 10^3/uL RBC 3.93 L (4.20-5.40) 10^6/uL Hgb 12.5 (12.0-16.0) g/dL Hct 37.8 (36.0-48.0) % MCV 96.2 (81.0-99.0) fL MCH 31.8 (26.7-34.0) pg MCHC 33.1 (29.9-35.2) g/dL RDW 12.8 (11.0-15.0) % Plt Count 160 (150-450) 10^3/uL MPV 12.3 (9.5-13.5) fL Neut % (Auto) 59.8 (43.0-75.0) % Lymph % (Auto) 32.3 (20.5-60.0) % Larue % (Auto) 3.7 (1.7-12.0) % Eos % (Auto) 3.4 (0.9-7.0) % Baso % (Auto) 0.6 (0.2-2.0) % Neut # (Auto) 3.9 (1.4-6.5) 10^3/uL Lymph # (Auto) 2.1 (1.2-3.8) 10^3/uL Larue # (Auto) 0.2 L (0.3-0.8) 10^3/uL Eos # (Auto) 0.2 (0.0-0.7) 10^3/uL Baso # (Auto) 0.0 (0.0-0.1) 10^3/uL Abs Immat Gran (auto) 0.01 (0.00-0.03) 10^3/uL Imm/Tot Granulo (auto) 0.2 (0.0-0.5) % Sodium 140 (136-145) mmol/L Potassium 4.2 (3.5-5.1) mmol/L Chloride 104 (98-107) mmol/L Carbon Dioxide 26.9 (21.0-32.0) mmol/L Anion Gap 13.3 BUN 17.0 (7.0-18.0) mg/dL Creatinine 1.13 H (0.55-1.02) mg/dL Est GFR ( Amer) 58 L (>=60) Est GFR (Non-Af Amer) 48 L (>=60) BUN/Creatinine Ratio 15.0 Glucose 166 H (74-106) mg/dL Calcium 9.8 (8.5-10.1) mg/dL Total Bilirubin 0.7 (0.2-1.0) mg/dL AST 15 (15-37) U/L ALT 35 (14-59) U/L Alkaline Phosphatase 66 (46-116) U/L Total Protein 6.4 (6.4-8.2) g/dL Albumin 3.2 L (3.4-5.0) g/dL Globulin 3.2 g/dL Albumin/Globulin Ratio 1.0 Urine Color Lt. yellow (YELLOW) Urine Clarity Clear (CLEAR) Urine pH 6.0 (5.0-9.0) Ur Specific Rueter 1.010 (1.005-1.025) Urine Protein Negative (NEG/TRACE) mg/dL Urine Glucose (UA) Negative (NEGATIVE) mg/dL Urine Ketones Negative (NEGATIVE) mg/dL Urine Occult Blood Negative (NEGATIVE) Urine Nitrite Negative (NEGATIVE) Urine Bilirubin Negative (NEGATIVE) Urine Urobilinogen 0.2 (0.2-1.0) EU/dL Ur Leukocyte Esterase Trace A (NEGATIVE) Urine RBC 0-2 (0-2) #/HPF Urine WBC 2-5 A (NONE SEEN) #/HPF Ur Squamous Epith Cells Few A (NONE/RARE) #/LPF Urine Crystals None seen (None Seen) #/HPF Urine Bacteria Trace A (NONE SEEN) #/HPF Urine Casts None seen (NONE SEEN) #/LPF Urine Mucus Trace A (NONE SEEN) Imaging Data CT scan - abdomen: Radiologist's impression: ITS Impressions Lumbar Spine CT 05/19/24 12:55 IMPRESSION: No acute findings. Degenerative changes detailed above. Electronically authenticated by: АНДРЕЙ CHUA Date: 05/19/2024 14:29 Discharge Plan Discharge Stand Alone Forms: Portal Instructions Chief Complaint: Back Pain/Injury Clinical Impression: Sciatica Patient Disposition: Home, Self-Care Time of Disposition Decision: 14:50 Condition: Good Mode of Transportation: Private Vehicle Prescriptions / Home Meds: New cyclobenzaprine 10 mg tablet 10 mg PO TID Qty: 10 0RF No Action carvedilol 12.5 mg tablet 12.5 mg PO Q12H clopidogrel 75 mg tablet 75 mg PO DAILY spironolactone 25 mg tablet 25 mg PO DAILY oxycodone-acetaminophen 5-325 mg tablet 2 tab PO Q6H PRN (Reason: pain) prednisone 1 mg tablet 1 mg PO DAILY Rx Instructions: 9 mg daily; folic acid 1 mg tablet 1 mg PO DAILY letrozole 2.5 mg tablet 2.5 mg PO Q24H levothyroxine 112 mcg tablet 112 mcg PO DAILY methotrexate sodium (PF) 25 mg/mL solution 20 mg subcut DAILY Entresto 49-51 mg tablet 1 tab PO BID insulin degludec [Tresiba U-100 Insulin] 100 unit/mL solution 30 unit subcut BID nitroglycerin [Nitrostat] 0.4 mg tablet, sublingual 0.4 mg sublingual Q5M Rx Instructions: do not exceed 3 doses per episode Actemra 400 mg/20 mL (20 mg/mL) solution IV Print Language: Khmer Instructions: Sciatica (ED) Referrals: Physician,Non-Staff, MD [Primary Care Provider] - 1 week Discharge Date/Time: 05/19/24 15:08
[2024-05-19 13:42] LABS: Basophils Percent Auto 0.6 % (0.2-2.0); Eosinophils Absolute Auto 0.2 10^3/uL (0.0-0.7); Eosinophils Percent Auto 3.4 % (0.9-7.0); Hematocrit 37.8 % (36.0-48.0); Hemoglobin 12.5 g/dL (12.0-16.0); Immature Granulocytes Abs Auto 0.01 10^3/uL (0.00-0.03); Immature Granulocytes Pct Auto 0.2 % (0.0-0.5); Lymphocytes Absolute Auto 2.1 10^3/uL (1.2-3.8); Lymphocytes Percent Auto 32.3 % (20.5-60.0); Mean Corpuscular HGB Conc 33.1 g/dL (29.9-35.2); Mean Corpuscular Hemoglobin 31.8 pg (26.7-34.0); Mean Corpuscular Volume 96.2 fL (81.0-99.0); Mean Platelet Volume 12.3 fL (9.5-13.5); Monocytes Absolute Auto 0.2 10^3/uL (0.3-0.8); Monocytes Percent Auto 3.7 % (1.7-12.0); Neutrophils Absolute Auto 3.9 10^3/uL (1.4-6.5); Neutrophils Percent Auto 59.8 % (43.0-75.0); Platelet Count 160 10^3/uL (150-450); Red Blood Count 3.93 10^6/uL (4.20-5.40); Red Cell Distribution Width 12.8 % (11.0-15.0); White Blood Count 6.5 10^3/uL (4.0-11.0)
[2024-05-19 13:51] LABS: Alanine Aminotransferase 35 U/L (14-59); Albumin Level 3.2 g/dL (3.4-5.0); Alkaline Phosphatase 66 U/L (46-116); Anion Gap 13.3; Aspartate Amino Transferase 15 U/L (15-37); Bilirubin Total 0.7 mg/dL (0.2-1.0); Calcium 9.8 mg/dL (8.5-10.1); Carbon Dioxide 26.9 mmol/L (21.0-32.0); Chloride 104 mmol/L (98-107); Estimated GFR (African America 58 (>=60); Estimated GFR (Non-African Ame 48 (>=60); Globulin 3.2 g/dL; Glucose 166 mg/dL (74-106); Potassium 4.2 mmol/L (3.5-5.1); Sodium 140 mmol/L (136-145); Total Protein 6.4 g/dL (6.4-8.2)
[2024-05-19 13:53] LABS: Bilirubin Urine NEGATIVE (NEGATIVE); Blood Urine NEGATIVE (NEGATIVE); Clarity Urine CLEAR (CLEAR); Color Urine LT. YELLOW (YELLOW); Glucose Urine UA NEGATIVE (NEGATIVE); Ketones Urine NEGATIVE (NEGATIVE); Leukocyte Esterase Urine TRACE (NEGATIVE); Nitrite Urine NEGATIVE (NEGATIVE); Protein Urine NEGATIVE (NEG/TRACE); Urobilinogen Urine 0.2 EU/dL (0.2-1.0)
[2024-05-19 14:06] LABS: Urine Microscopic Indicated YES
[2024-05-19 14:11] LABS: Bacteria Urine TRACE #/HPF (NONE SEEN); Mucus Urine TRACE (NONE SEEN); RBC Urine 0-2 #/HPF (0-2)
[2024-05-19 14:12] LABS: Cast Seen? NONE SEEN #/LPF (NONE SEEN); Crystals Seen? None Seen #/HPF (None Seen); Squamous Epithelial Cell Urine FEW #/LPF (NONE/RARE)
== END 2024-05-19 15:08 | disposition home or self-care (01) ==
PROVIDERS: Emergency Provider Emergency Medicine
DX: M54.42 Lumbago with sciatica, left side (principal)
CPT/HCPCS: 36415; 72131; 80053; 81001; 85025; 96374; 96376; 99285; J1885

== ENCOUNTER 2024-05-30 07:34 | Outpatient (RCR) | payer MEDICARE, OTHER, SELFPAY ==
[2024-05-30 09:54] VITALS: BP 130/75; PULSE 81; TEMP 37.1; O2SAT 96
[2024-05-30 10:16] LABS: Basophils Absolute Auto 0.1 10^3/uL (0.0-0.1); Basophils Percent Auto 1.3 % (0.2-2.0); Eosinophils Absolute Auto 0.6 10^3/uL (0.0-0.7); Eosinophils Percent Auto 6.2 % (0.9-7.0); Hematocrit 38.2 % (36.0-48.0); Hemoglobin 12.5 g/dL (12.0-16.0); Immature Granulocytes Abs Auto 0.03 10^3/uL (0.00-0.03); Immature Granulocytes Pct Auto 0.3 % (0.0-0.5); Lymphocytes Absolute Auto 2.7 10^3/uL (1.2-3.8); Lymphocytes Percent Auto 28.4 % (20.5-60.0); Mean Corpuscular HGB Conc 32.7 g/dL (29.9-35.2); Mean Corpuscular Hemoglobin 31.6 pg (26.7-34.0); Mean Corpuscular Volume 96.7 fL (81.0-99.0); Mean Platelet Volume 11.6 fL (9.5-13.5); Monocytes Absolute Auto 0.9 10^3/uL (0.3-0.8); Monocytes Percent Auto 9.6 % (1.7-12.0); Neutrophils Absolute Auto 5.2 10^3/uL (1.4-6.5); Neutrophils Percent Auto 54.2 % (43.0-75.0); Platelet Count 237 10^3/uL (150-450); Red Blood Count 3.95 10^6/uL (4.20-5.40); Red Cell Distribution Width 13.2 % (11.0-15.0); White Blood Count 9.6 10^3/uL (4.0-11.0)
[2024-05-30 10:23] LABS: Erythrocyte Sedimentation Rate 55 mm/hr (<=30)
--- NOTE | 2024-05-30 10:23 | PC.NURSE ---
0954: Pt. to [facility] amb. for infusion. Seated in recliner. VSS. IV initiated, see documentation. Blood drawn from IV for ordered labs. Pt. tolerated without c/o discomfort. Pt. given water. Declines snack or needs.
--- NOTE | 2024-05-30 10:37 | PC.NURSE ---
1011: IV Actemra initiated at this time. Pt. denies needs.
[2024-05-30 10:38] LABS: Alanine Aminotransferase 36 U/L (14-59); Albumin Level 3.3 g/dL (3.4-5.0); C Reactive Protein <0.50 mg/dL (<=0.50); Estimated GFR (African America 45 (>=60); Estimated GFR (Non-African Ame 37 (>=60)
--- NOTE | 2024-05-30 11:13 | PC.NURSE ---
1110: Actemra infusion complete without s&s of adverse reaction. IV d/c'd, pressure to site. Pt. d/c'd amb. to home.
== END 2024-06-15 23:59 | disposition home or self-care (01) ==
LOC: INF 07:34
PROVIDERS: Visit Provider Internal Medicine Rheumatology
DX: M05.89 Other rheumatoid arthritis with rheumatoid factor of multiple sites (principal)
CPT/HCPCS: 82042; 82565; 84460; 85025; 85652; 86140; 96365; J3262

== ENCOUNTER 2024-06-27 07:52 | Outpatient (RCR) | payer MEDICARE, OTHER, SELFPAY ==
[2024-06-27 10:00] VITALS: BP 166/78; PULSE 76; TEMP 35.9; O2SAT 95
--- NOTE | 2024-06-27 11:21 | PC.NURSE ---
1000: Pt. to [facility] amb. for infusion. Weight obtained. Seated in recliner. VSS. IV initiated, see documentation. Pt. tolerated without c/o. 1026: IV Actemra infusion initiated as ordered. Given bottled water. Declines food.
--- NOTE | 2024-06-27 11:31 | PC.NURSE ---
1130: IV actemra completed without s&s of adverse reaction. IV d/c'd, pressure to site. Pt. d/c'd amb. to home
== END 2024-07-15 23:59 | disposition home or self-care (01) ==
LOC: INF 07:52
PROVIDERS: Visit Provider Internal Medicine Rheumatology
DX: M05.89 Other rheumatoid arthritis with rheumatoid factor of multiple sites (principal)
CPT/HCPCS: 96365; J3262

== ENCOUNTER 2024-07-24 07:36 | Outpatient (RCR) | payer MEDICARE, OTHER, SELFPAY ==
[2024-07-24 10:00] VITALS: BP 99/65; PULSE 76; TEMP 23.3; O2SAT 98
[2024-07-24 10:27] LABS: Basophils Absolute Auto 0.1 10^3/uL (0.0-0.1); Basophils Percent Auto 1.1 % (0.2-2.0); Eosinophils Absolute Auto 0.4 10^3/uL (0.0-0.7); Eosinophils Percent Auto 5.4 % (0.9-7.0); Hematocrit 36.4 % (36.0-48.0); Immature Granulocytes Abs Auto 0.03 10^3/uL (0.00-0.03); Immature Granulocytes Pct Auto 0.5 % (0.0-0.5); Lymphocytes Absolute Auto 2.1 10^3/uL (1.2-3.8); Lymphocytes Percent Auto 31.9 % (20.5-60.0); Mean Corpuscular Hemoglobin 32.2 pg (26.7-34.0); Mean Corpuscular Volume 97.6 fL (81.0-99.0); Mean Platelet Volume 11.9 fL (9.5-13.5); Monocytes Absolute Auto 0.7 10^3/uL (0.3-0.8); Monocytes Percent Auto 10.9 % (1.7-12.0); Neutrophils Absolute Auto 3.3 10^3/uL (1.4-6.5); Neutrophils Percent Auto 50.2 % (43.0-75.0); Platelet Count 175 10^3/uL (150-450); Red Blood Count 3.73 10^6/uL (4.20-5.40); Red Cell Distribution Width 12.4 % (11.0-15.0); White Blood Count 6.6 10^3/uL (4.0-11.0)
--- NOTE | 2024-07-24 10:36 | PC.NURSE ---
1000: Pt. to [facility] amb for scheduled infusion. Weight obtained. Seated in recliner. VSS. IV initiated, see documentation. Labs drawn from iv start. Pt tolerated without c/o. 1019: IV Actemra initiated at this time. Pt. given warm blanket. Drinking tea. Denies needs.
[2024-07-24 10:46] LABS: Alanine Aminotransferase 21 U/L (14-59); Albumin Globulin Ratio 0.9; Albumin Level 3.3 g/dL (3.4-5.0); Alkaline Phosphatase 62 U/L (46-116); Aspartate Amino Transferase 11 U/L (15-37); Bilirubin Direct 0.1 mg/dL (0.0-0.2); Bilirubin Total 0.6 mg/dL (0.2-1.0); Globulin 3.7 g/dL
--- NOTE | 2024-07-24 11:29 | PC.NURSE ---
1125: Actemra infusion completed without s&s of adverse reaction. IV d/c'd, pressure to site. Pt. d/c'd amb. to home.
== END 2024-08-15 23:59 | disposition home or self-care (01) ==
LOC: INF 07:36
PROVIDERS: Visit Provider Internal Medicine Rheumatology
DX: M05.89 Other rheumatoid arthritis with rheumatoid factor of multiple sites (principal)
CPT/HCPCS: 80076; 85025; 96365; J3262

== ENCOUNTER 2024-08-26 07:40 | Outpatient (RCR) | payer MEDICARE, OTHER, SELFPAY ==
[2024-08-26 13:25] VITALS: BP 167/76; PULSE 88; TEMP 36.4; O2SAT 95
--- NOTE | 2024-08-26 14:04 | PC.NURSE ---
1325: Pt. to [facility] amb. for scheduled infusion. Weight obtained, called to pharmacy. Seated in recliner. VSS. IV initiated to left arm, see documentation. Pt. tolerated without c/o pain. Given water. Denies needs or c/o.
[2024-08-26 14:07] LABS: Basophils Absolute Auto 0.1 10^3/uL (0.0-0.1); Basophils Percent Auto 1.2 % (0.2-2.0); Eosinophils Absolute Auto 0.5 10^3/uL (0.0-0.7); Eosinophils Percent Auto 8.9 % (0.9-7.0); Hematocrit 39.2 % (36.0-48.0); Immature Granulocytes Abs Auto 0.01 10^3/uL (0.00-0.03); Immature Granulocytes Pct Auto 0.2 % (0.0-0.5); Lymphocytes Absolute Auto 2.3 10^3/uL (1.2-3.8); Lymphocytes Percent Auto 37.7 % (20.5-60.0); Mean Corpuscular HGB Conc 33.2 g/dL (29.9-35.2); Mean Corpuscular Hemoglobin 31.8 pg (26.7-34.0); Mean Corpuscular Volume 95.8 fL (81.0-99.0); Mean Platelet Volume 11.6 fL (9.5-13.5); Monocytes Absolute Auto 0.5 10^3/uL (0.3-0.8); Monocytes Percent Auto 8.6 % (1.7-12.0); Neutrophils Absolute Auto 2.6 10^3/uL (1.4-6.5); Neutrophils Percent Auto 43.4 % (43.0-75.0); Platelet Count 228 10^3/uL (150-450); Red Blood Count 4.09 10^6/uL (4.20-5.40); Red Cell Distribution Width 12.3 % (11.0-15.0); White Blood Count 6.1 10^3/uL (4.0-11.0)
[2024-08-26 14:19] LABS: Alanine Aminotransferase 65 U/L (14-59); Albumin Globulin Ratio 0.9; Albumin Level 3.3 g/dL (3.4-5.0); Alkaline Phosphatase 87 U/L (46-116); Aspartate Amino Transferase 44 U/L (15-37); Bilirubin Direct 0.1 mg/dL (0.0-0.2); Bilirubin Total 0.6 mg/dL (0.2-1.0); Globulin 3.5 g/dL; Total Protein 6.8 g/dL (6.4-8.2)
[2024-08-26 14:21] LABS: Erythrocyte Sedimentation Rate 13 mm/hr (<=30)
--- NOTE | 2024-08-26 14:53 | PC.NURSE ---
1448: Infusion completed without s&s of adverse reaction. Pt. comments that treatment has not been helping her. Encouraged to speak with ordering MD and discuss change in regimen. Pt. relays understanding. IV d/c'c, pressure to site. D/c'd amb. to home
== END 2024-09-05 08:58 | disposition home or self-care (01) ==
LOC: INF 07:40
DX: M05.89 Other rheumatoid arthritis with rheumatoid factor of multiple sites (principal)
CPT/HCPCS: 80076; 85025; 85652; 96365; J3262

== ENCOUNTER 2024-09-25 07:34 | Outpatient (RCR) | payer MEDICARE, OTHER, SELFPAY ==
[2024-09-25 11:05] VITALS: BP 141/89; PULSE 71; TEMP 37.2; O2SAT 98
[2024-09-25 11:52] LABS: Alanine Aminotransferase 71 U/L (14-59); Anion Gap 12.9; Aspartate Amino Transferase 42 U/L (15-37); BUN Creatinine Ratio 18.6; Calcium 9.8 mg/dL (8.5-10.1); Carbon Dioxide 25.6 mmol/L (21.0-32.0); Chloride 102 mmol/L (98-107); Cholesterol 221 mg/dL (<=200); Estimated GFR (African America 45 (>=60 mL/min/1.73m^2); Estimated GFR (Non-African Ame 38 (>=60 mL/min/1.73m^2); Glucose 267 mg/dL (74-106); HDL Cholesterol 55 mg/dL (40-60); Potassium 4.5 mmol/L (3.5-5.1); Sodium 136 mmol/L (136-145); Triglycerides 115 mg/dL (<=150)
== END 2024-09-25 13:35 | disposition home or self-care (01) ==
LOC: INF 07:34
PROVIDERS: Internal Medicine Cardiovascular Disease
DX: M05.89 Other rheumatoid arthritis with rheumatoid factor of multiple sites (principal); E78.2 Mixed hyperlipidemia; I25.10 Atherosclerotic heart disease of native coronary artery without angina pectoris; I50.9 Heart failure, unspecified; I25.5 Ischemic cardiomyopathy; I11.0 Hypertensive heart disease with heart failure
CPT/HCPCS: 36415; 80048; 80061; 83880; 84450; 84460; 96365; J3262

== ENCOUNTER 2024-10-28 07:48 | Outpatient (RCR) | payer MEDICARE, OTHER, SELFPAY ==
[2024-10-28 09:55] VITALS: BP 143/82; PULSE 74; TEMP 36.7; O2SAT 97
--- NOTE | 2024-10-28 10:40 | PC.NURSE ---
1021: IV Actemra initiated at this time. Pt. denies needs.
[2024-10-28 11:33] LABS: Basophils Absolute Auto 0.1 10^3/uL (0.0-0.1); Basophils Percent Auto 0.4 % (0.2-2.0); Eosinophils Percent Auto 0.1 % (0.9-7.0); Hematocrit 38.4 % (36.0-48.0); Hemoglobin 12.6 g/dL (12.0-16.0); Immature Granulocytes Abs Auto 0.06 10^3/uL (0.00-0.03); Immature Granulocytes Pct Auto 0.5 % (0.0-0.5); Lymphocytes Absolute Auto 1.6 10^3/uL (1.2-3.8); Lymphocytes Percent Auto 13.6 % (20.5-60.0); Mean Corpuscular HGB Conc 32.8 g/dL (29.9-35.2); Mean Corpuscular Hemoglobin 31.5 pg (26.7-34.0); Mean Platelet Volume 12.3 fL (9.5-13.5); Monocytes Absolute Auto 0.6 10^3/uL (0.3-0.8); Monocytes Percent Auto 5.2 % (1.7-12.0); Neutrophils Absolute Auto 9.4 10^3/uL (1.4-6.5); Neutrophils Percent Auto 80.2 % (43.0-75.0); Platelet Count 227 10^3/uL (150-450); Red Cell Distribution Width 12.1 % (11.0-15.0); White Blood Count 11.7 10^3/uL (4.0-11.0)
[2024-10-28 11:58] LABS: Alanine Aminotransferase 36 U/L (14-59); Albumin Globulin Ratio 0.9; Albumin Level 3.5 g/dL (3.4-5.0); Alkaline Phosphatase 97 U/L (46-116); Aspartate Amino Transferase 23 U/L (15-37); Bilirubin Direct 0.1 mg/dL (0.0-0.2); Bilirubin Total 0.5 mg/dL (0.2-1.0); Total Protein 7.5 g/dL (6.4-8.2)
[2024-10-28 12:02] LABS: Erythrocyte Sedimentation Rate 44 mm/hr (<=30)
== END 2024-11-15 23:59 | disposition home or self-care (01) ==
LOC: INF 07:48
PROVIDERS: PCP Internal Medicine Rheumatology
DX: M05.79 Rheumatoid arthritis with rheumatoid factor of multiple sites without organ or systems involvement (principal); M05.89 Other rheumatoid arthritis with rheumatoid factor of multiple sites
CPT/HCPCS: 36415; 80048; 80076; 85025; 85652; 96365; J3262

== ENCOUNTER 2024-10-28 08:06 | Outpatient (OUT) | payer MEDICARE, OTHER, SELFPAY ==
[2024-10-28 11:54] LABS: Anion Gap 16.6; BUN Creatinine Ratio 14.3; Calcium 10.3 mg/dL (8.5-10.1); Carbon Dioxide 24.2 mmol/L (21.0-32.0); Chloride 103 mmol/L (98-107); Estimated GFR (African America 51 (>=60 mL/min/1.73m^2); Estimated GFR (Non-African Ame 42 (>=60 mL/min/1.73m^2); Glucose 184 mg/dL (74-106); Potassium 4.8 mmol/L (3.5-5.1); Sodium 139 mmol/L (136-145)
--- OUTSIDE RECORDS SUMMARY | 2024-10-30 08:23 | XMS_ITS | CCD ---
Author Organization [facility] Inform ion Partnership [facility] Care Team Providers Care [employer] Architect Name Role Phone Hussain Reese Good Unavailable Unavailable Unavailable DO Reese Nixon Primary Care Provider MD Marcin Patel Attending Provider DO Satly Gonzalez Attending Provider DO Salty Gonzalez Referring Provider MD Floresita Gonzalez Attending Provider DO Reese Nixon Primary Care Provider MD Marcin Patel Attending Provider DO Reese Nixon Primary Care Provider [phone] DO Salty Gonzalez Referring Provider [phone] MD Floresita Gonzalez Attending Provider RASHIDA, DR [...] Care Provider DO Salty Gonzalez Referring Provider [phone] MD Floresita Gonzalez Attending Provider [phone] Hussain, Dr. Reese Grady [facility] Lisava iledison Herrmann, Dr. Luke Lloyd Attending Lisava ilable Steven, Dr. Luke Lloyd Referring Lisava iledison Nixon, Dr. Reese Grady [facility] Lisava iledison Herrmann, Dr. Luke Lloyd Attending Lisava kyedison Nixon, DO Leigh Primary Care Provider DO Salty Gonzalez Referring Provider [phone] MD Floresita Gonzalez Attending Provider House Reese KELLER Primary Care Provider DO Reese Nixon Primary Care Provider [phone] DO Salty Gonzalez Referring Provider [phone] MD Floresita Gonzalez Attending Provider Hussain, DO Leigh Primary Care Provider DO Salty Gonzalez Referring Provider [phone] MD Floresita Gonzalez Attending Provider Floresita Gonzalez Admitting Unavailable Floresita Gonzalez Attending Unavailable Salty Gonzalez Referring Unavailable House, Reese Primary Care Unavailable House DO, Reese Good Primary Care Provider Reese Nixon MD Primary Care Provider LUKE HERRMANN Attending Unavailable STEVEN, LUKE Cordoba Referring Unavailable HOUSE, REESE P Primary Care Unavailable HOUSE, REESE P Primary Care Unavailable HOUSE, REESE P Primary Care Unavailable HOUSE, DO REESE P Attending Unavailable HOUSE, DO REESE P Attending Unavailable HOUSE, REESE P Primary Care Unavailable HOUSE, DO REESE P Attending Unavailable HOUSE, REESE P [...] Unavailable HOUSE, REESE P Primary Care Unavailable Medications Current Medications Medication Drug Class(es) Dates Sig (Normalized) Sig (Original) acetaminophen 325 mg / oxyCODONE hydrochloride 5 mg oral tablet (20 sources) Opioid Agonist Start: 09-10-2024 take 1 tablet by mouth in the morning, then take 1 tablet by mouth in the evening, then take 1 tablet by mouth at bedtime oxyCODONE-acetami nophen (Percocet) 5-325 MG tablet Take 1 tablet by mouth in the morning and 1 tablet in the evening and 1 tablet before bedtime. 09/10/2024 Active Start: 08-23-2021 take 1 tablet by ivanna th three times daily Oxycodone-Acetaminophen (Percocet) 5-325 mg Tablet Active 1 TAB [...] mg) by mouth once daily at bedtime. 10/28/2021 Active Start: 08-27-2021 End: 12-14-2021 take 80 mg by mouth once daily in the evening Atorvastatin Discontinued 80 MG PO Every evening August 27, 2021 1:00am December 14, 2021 3:17pm carvedilol 12.5 mg oral tablet (20 sources) alpha-Adrenergic Althea, beta-Adrenergic Althea Start: 10-12-2021 End: 04-24-2025 take 1 tablet by mouth in the morning carvedilol (Coreg) 12.5 MG tablet Take 12.5 mg by mouth in the morning and 12.5 mg in the evening. 12/01/2022 Active Start: 08-31-2021 take 1 tablet by ivanna th twice daily Carvedilol 6.25 MG Oral Tablet Take 1 tablet twice daily Quantity: 180 Refills: 3 Ordered: 31-Aug-2021 Steven KELLER Luke Start : 31-Aug-2021 Active clopidogrel 75 mg oral tablet (20 sources) [id number] Platelet Inhibitor Start: 09-03-2021 End: 08-09-2024 take 1 tablet by mouth once daily clopidogrel (Plavix) 75 mg tablet Indications: S/P right coronary artery (RCA) stent placement Take 1 tablet (75 mg) by mouth once daily. 30 tablet 08/10/2023 08/09/2024 Active cyclobenzaprine hydrochloride 10 mg oral tablet (2 sources) Muscle Relaxant Start: 09-16-2024 cyclobenzaprine (Flexeril) 10 MG tablet 10 mg 09/16/2024 Active folic acid 1 mg oral tablet (4 sources) Start: 10-25-2023 take 1 mg by mouth once daily Folic Acid Active 1 MG PO Daily October 25, 2023 1:00am gabapentin 300 mg oral capsule (3 sources) Anti-epileptic Agent take 1 capsule by mouth in the morning gabapentin (Neurontin) 300 MG capsule Take 300 mg by mouth in the morning and 300 mg before bedtime. Active ibuprofen 600 mg oral tablet (8 sources) Nonsteroidal Anti-inflammatory Drug Start: 12-28-2021 Ibuprofen Active 600 MG PO EVERY 4-6 HOURS 04 08December 28, 2021 12:00am do not exceed 4 doses in a 24 hour period 3 ml insulin aspart protamine, human 70 unt/ml / insulin aspart, human 30 unt/ml pen injector (18 sources) Insulin Analog Start: 08-26-2021 Insulin Asp Prt-Insulin Aspart (Novolog Mix 70-30flexpen U-100) 100 unit/mL (70-30) insulin pen Active 34 UNIT SUBCUT Every morning August 26, 2021 1:00am Start: 08-26-2021 Insulin Asp Pr t-Insulin Aspart (Novolog Mix 70-30flexpen U- 100) 100 unit/mL (70-30) insulin pen Active 15 UNIT SUBCUT Every evening August 26, 2021 1:00am insulin aspart p rotamine-insulin aspart (NovoLOG Mix 70-30) (70-30) 100 UNIT/ML injection Inject under the skin 2 (two) times a day before meals. Active insulin aspart, human 100 un t/ml injectable solution (20 sources) Insulin Analog Insulin Aspart 1 00 UNIT/ML solution Inject under the skin Active NovoLOG FlexPen 100 UNIT/ML SOLN INJECT SUBCUTANEOUSLY DIRECTED. Quantity: 0 Refills: 0 Ordered: 30-Aug-2021 DO Active 3 ml insulin degludec 100 unt/ml pen injector (20 sources) Insulin Analog Start: 10-01-2022 inject 60 [IU] by subcutaneous injection once daily Tresiba FlexTouch 100 UNIT/ML injection INJECT 60 UNITS UNDER THE SKIN ONCE DAILY' 10/01/2022 Active Start: 01-10-2022 inject 10 [IU] by tavares bcutaneous injection once daily Insulin Degludec (Tresiba Flextouch U-100) 100 unit/mL (3 mL) Insulin Pen Active 10 UNIT SUBCUT Daily January 10, 2022 2:04pm Start: 08-26-2021 End: 01-13-2022 Insulin Degludec (Tresiba Flextouch U-100) 100 unit/mL (3 mL) insulin pen Discontinued 60 UNIT SUBCUT Daily at bedtime August 26, 2021 1:00am January 13, 2022 8:18am insulin degludec (Tresiba U-100 Insulin) 100 unit/mL injection Inject under the skin. Active insulin degludec (Tresiba U-100 Insulin) 100 unit/mL injection Inject under the skin. 0 Active Insulin Degludec (Tresiba Flextouch U-100) 100 unit/mL (3 mL) Insulin Pen (5 sources) Start: 01-10-2022 Insulin Deglud ec (Tresiba Flextouch U-100) 100 unit/mL (3 mL) Insulin Pen Active 60 UNIT SUBCUT Daily January 10, 2022 12:00am Start: 01-10-2022 Insulin Deglud ec (Tresiba Flextouch U-100) 100 unit/mL (3 mL) Insulin Pen Active 60 UNIT SUBCUT Daily January 09, 2022 11:00pm letrozole 2.5 mg oral tablet (12 sources) Aromatase Inhibitor Start: 04-20-2023 End: 08-01-2023 take 1 tablet by mouth once daily letrozole (Femara) 2.5 MG chemo tablet Take 2.5 mg by mouth Daily. 05/18/2023 Active levothyroxine sodium 0.112 mg oral tablet (20 sources) l-Thyroxine Start: 08-23-2021 take 1 tablet by mouth in the morning levothyroxine (Synthroid, Levoxyl) 112 MCG tablet Take 112 mcg by mouth in the morning. 02/07/2023 Active 2 ml methotrexate 25 mg/ml injection (4 sources) Folate Analog Metabolic Inhibitor Start: 09-09-2024 inject 0.8 mL by subcutaneous injection every week Methotrexate Sodium (methotrexate PF) 50 MG/2ML syringe INJECT 0.8ML SUBCUTANEOUSLY ONCE A WEEK. 09/09/2024 Active Start: 10-25-2023 inject 15 mg by subc utaneous injection every week Methotrexate (Pf) Active 15 MG SUBCUT every week October 25, 2023 1:00am nitroglycerin 0.4 mg sublingual tablet (20 sources) Nitrate Vasodilator Start: 12-21-2021 nitroglyce rin (Nitrostat) 0.[address] 1 TABLET UNDER THE TONGUE EVERY 5 MINUTES FOR UP TO 3 DOSES NEEDED FOR CHEST PAIN.CALL 911 IF PAIN PERSISTS. 12/21/2021 Active Start: 08-27-2021 Nitroglycerin Active 0.4 MG SUBLINGUAL Every 5 minutes x 3 doses August 27, 2021 1:00am nystatin 100 unt/mg topical powder (12 sources) Polyene Antifungal Start: 11-05-2022 nystatin (M ycostatin) 552996 UNIT/GM powder APPLY 1 APPLICATION TWICE DAILY 11/05/2022 Active Start: 10-13-2022 End: 10-25-2023 Nystatin (Nystop) 100,000 un it/gram Powder Discontinued 1 APPLIC TOPICAL Twice daily October 13, 2022 9:55am October 25, 2023 1:57pm dispense one bottle predniSONE 1 mg oral tablet (12 sources) Start: 09-18-2024 predniSONE (De ltasone) 1 MG tablet 09/18/2024 Active Start: 10-25-2023 take 10 mg by mouth [...] take 1 tablet by mouth twice daily sacubitriL-valsartan (Entresto) 49-51 mg tablet Indications: Primary hypertension Take 1 tablet by mouth 2 times a day. 180 tablet 3 08/10/2023 08/09/2024 Active Start: 08-31-2021 take 1 tablet by ivanna th twice daily Entresto 24-26 MG Oral Tablet TAKE 1 TABLET BY MOUTH TWICE A DAY Quantity: 180 Refills: 3 Ordered: 31-Aug-2021 Luke Herrmann DO Start : 31-Aug-2021 Active take 1 tablet by ivanna th in the morning Entresto 49-51 MG tablet Take 1 tablet by mouth in the morning and 1 tablet in the evening. Active spironolactone 25 mg oral tablet (20 sources) Aldosterone Antagonist Start: 10-28-2021 End: 08-10-2023 take 1 tablet by mouth once daily spironolactone (Aldactone) 25 mg tablet Indications: Primary hypertension Take 1 tablet (25 mg) by mouth once daily. 90 tablet 3 08/10/2023 Active Start: 10-12-2021 take 0.5 tablet by m outh once daily Spironolactone 25 MG Oral Tablet TAKE 0.5 TABLET Daily Quantity: 45 Refills: 3 Ordered: 12-Oct-2021 Salima Nguyễn Start : 12-Oct-2021 Active new start 20 ml tocilizumab 20 mg/ml injection (1 source) Interleukin-6 Receptor Antagonist Start: 04-29-2024 Tocilizumab (Actemra) 400 mg/20 mL (20 mg/mL) solution Active 400 MG IV EVERY 4 WEEKS April 29, 2024 12:00am administer as a 1 hr infusion valACYclovir 1000 mg oral tablet (2 sources) Herpesvirus Nucleoside Analog DNA Polymerase Inhibitor, Herpes Simplex Virus Nucleoside Analog DNA Polymerase Inhibitor, Herpes Zoster Virus Nucleoside Analog DNA Polymerase Inhibitor Start: 05-05-2023 take 1 tablet by mouth in the morning, then take 1 tablet by mouth in the evening, then take 1 tablet by mouth at bedtime valACYclovir (Valtrex) 1 g tablet Take 1 tablet by mouth in the morning and 1 tablet in the evening and 1 tablet before bedtime. 05/05/2023 Active Completed/Discontinued Medications Medication Drug Class(es) Dates Sig [...] Thiazide Diuretic, Angiotensin 2 Receptor Althea Start: 11 End: 08-27-20 21 take 1 tablet by mouth once daily Olmesartan-Hydrochlor othiazide Discontinued 1 TAB PO Daily August 26, 2021 1:00am August 27, 2021 3:52pm hydroxychloroquine sulfate 200 mg oral tablet (8 sources) Antimalarial, Antirheumatic Agent Start: 12-15-19 End: 10-25-19 take 200 mg by mouth once daily [...] 23, 2021 1:00am October 25, 2023 1:59pm methylPREDNISolone 4 mg oral tablet (2 sources) Corticosteroid Start: 07-24-20 23 End: 10-25-19 take 1 tablet by mouth once daily Methylprednisolone (Medrol (Hussain)) 4 mg Tablets,Dose Pack Discontinued 4 MG PO Daily July 24, 2023 12:00am October 25, 2023 1:57pm mometasone furoate 1 mg/ml topical cream (6 sources) Corticosteroid Start: 02-03-20 22 End: 10-25-19 24 Mometasone Discontinued 1 APPLIC TOPICAL Daily February 02, 2022 12:00am October 25, 2023 1:56pm olmesartan medoxomil 40 mg oral tablet (8 sources) Angiotensin 2 Receptor Althea Start: 08-23-20 End: 08-26-20 21 take 1 tablet by mouth once [...] unspecified site of left female breast] Onset: 07-21-2023 01-12-2022 Chronic Congestive heart failure; nonhypertensive (3 sources) Congestive heart failure stage C due to ischemic cardiomyopathy; Translations: [Heart failure, unspecified] Onset: 07-30-2024 07-30-2024 Chronic Coronary atherosclerosis and other heart disease (20 sources) Ischemic myocardial dysfunction; Translations: [Other specified forms of chronic ischemic heart disease] Onset: 12-28-2021 Chronic Coronary atherosclerosis and other heart disease (2 sources) Presence of coronary angioplasty implant and graft; Translations: [Presence of coronary angioplasty implant and graft] Onset: 08-10-2023 Episodic Diabetes mellitus with complications (4 sources) Type 2 diabetes mellitus; Translations: [Type [...] (6 sources) Prophylactic aromatase inhibitors given; Translations: [intermediate manager (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 aromatase inhibitors] 02-03-2022 Episodic Other aftercare (5 sources) intermediate manager (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 aromatase inhibitors; Translations: [Use of aromatase inhibitors] 10-13-2022 Episodic Other aftercare (1 source) Other mcc (current) drug therapy; Translations: [OTH HALF-WAY CURRENT DRUG THERAPY] Onset: 11-14-2022 Episodic Other bone disease and musculoskeletal deformities (6 sources) Osteopenia; Translations: [Other specified disorders of bone density and structure, unspecified site] 02-03-2022 Episodic Other bone disease and musculoskeletal deformities (5 sources) Other specified disorders of bone density and structure, unspecified site; Translations: [Disorder of bone and cartilage, unspecified] 10-13-2022 Episodic Other ear and sense organ disorders (2 sources) Mixed conductive and sensorineural hearing loss of left ear; Translations: [Mixed conductive and sensorineural hearing loss, unilateral, left ear, with unrestricted hearing on the contralateral side] Onset: 07-21-2023 07-21-2023 Chronic Other lower respiratory disease (7 sources) Multiple nodules of lung; Translations: [Other nonspecific abnormal finding of lung field] 01-13-2022 Episodic Other lower respiratory disease (10 sources) Other nonspecific abnormal finding of lung field; Translations: [Other nonspecific abnormal finding of lung field] Onset: 08-29-2022 Episodic Other nutritional; endocrine; and metabolic disorders (20 sources) Body mass index 40+ - severely obese; Translations: [Morbid obesity] Onset: 07-30-2024 07-30-2024 Chronic Other nutritional; endocrine; and metabolic disorders (3 sources) Severe obesity; Translations: [Morbid (severe) obesity due to excess calories] Onset: 08-10-2023 08-10-2023 Chronic Other nutritional; endocrine; and metabolic disorders (2 sources) Body mass index (BMI) 40.0-44.9, adult; Translations: [Body mass index (BMI) 40.0-44.9, adult (Multi)] Onset: 07-30-2024 Chronic Other screening for suspected conditions (not mental disorders or infectious disease) (13 sources) Head scan abnormal; Translations: [Abnormal brain scan] 01-13-2022 Episodic Residual codes; unclassified (2 sources) Never smoked tobacco; Translations: [Other specified health status] Onset: 07-30-2024 07-30-2024 Episodic Residual codes; unclassified (2 sources) Other specified health status; Translations: [Other specified health status] Onset: 07-30-2024 Episodic Rheumatoid arthritis and related disease (20 sources) Rheumatoid arthritis; Translations: [Rheumatoid arthritis] Onset: 06-16-2022 Chronic Thyroid disorders (20 sources) Hypothyroidism; Translations: [Unspecified acquired hypothyroidism] Onset: 08-09-2023 08-09-2023 Chronic Past or Other Problems Problem Classification Problem Date Documented Date Episodic/Chronic Abdominal pain (4 sources) Right upper quadrant pain; Translations: [RIGHT UPPER QUADRANT PAIN] Onset: 04-30-2022 Episodic Other upper respiratory disease (2 sources) Oropharyngeal lesion; Translations: [Other diseases of pharynx] Onset: 07-21-2023 07-21-2023 Episodic Unclassified (20 sources) Never smoked tobacco; Translations: [Never a smoker] Unclassified (2 sources) Onset: 08-10-2023 Resolved: 07-30-2024 08-10-2023 Results Test Name Value Interpretation Reference Range Facility [facility] 10-14-2024 Outside Records [id number] 06#1.00OTGT[facility] Normal [facility] Outside Records [id number] 15#1.00OTGTIFF Normal [facility] 09-05-2024 Outside Records [id number] 04#1.00[facility] Normal [facility] 08-05-2024 Outside Records [id number] 32#1.00OTGT[facility] Normal [facility] 07-03-2024 Outside Records [id number] 14#1.00[facility] Normal [facility] 05-01-2024 Outside Records [id number] [facility] 03-12-2024 Outside Records [id number] 29#[facility] 01-22-2024 Outside Records [id number] 13#[facility] 01-02-2024 Outside Records [id number] [facility] Other Rad[facility] Report on 12-11-2023 Rad - Other Radiology Report [id number] 22#1.00[facility] MM diagnostic mammo BI w/CAD on 12-04-2023 MM diagnostic mammo BI w/CAD [facility] [address] Mammography Report Signed Patient: Chucky Dunlap MR#: [id number] : 1955 Acct:[id number] Age/Sex: 67 / F ADM Date: 12/04/23 Loc: Room: Type: [facility] Attending Dr: Floresita Gonzalez MD Copies to: MD Reese Paulino VaidenDO Salty DO Ordering Provider: Floresita Gonzalez MD [...] Vito Thomas M.D.12/04/2023 2:47 PM Dictation Location: [facility] Transcribed By: ANIL 12/04/231446 Dictated By: Vito Thomas II, MD 12/04/231440 Signed By: 12/04/23 1447 Normal [facility] Controlled Substances Agreem entson 11-01-2023 Controlled Substances Agreements [id number] 21#1.00OTGTIFF Normal [facility] CBC AUTO DIFFon 11-12-2022 BASO # 0.1 103/ul Normal 0.0-0.1 [facility] Comment on above: Performed By: #### C BC #### [facility] [address] [place] [address] Dr. Jessica Saravia Basophils/100 WBC (Bld) 1.4 % Normal 0.2-2.0 [facility] Comment on above: Performed By: #### C BC #### [facility] [address] [place] [address] Dr. Jessica Saravia EO # 0.4 103/ul Normal 0.0-0.7 [facility] Comment on above: Performed By: #### C BC #### [facility] [address] [place] [address] Dr. Jessica Saravia Eosinophils/100 WBC (Bld) 6.1 % Normal 0.9-7.0 [facility] Comment on above: Performed By: #### C BC #### [facility] [address] [place] [address] Dr. Jessica Saravia Erythrocyte distribution width (RBC) [Ratio] 14.9 % Normal 11.0-15.0 [facility] Comment on above: Performed By: #### C BC #### [facility] [address] [place] [address] Dr. Jessica Saravia Hematocrit (Bld) [Volume fraction] 34.7 % Critically low 36.0-48.0 [facility] Comment on above: Performed By: #### C BC #### [facility] [address] [place] [address] Dr. Jessica Saravia Hemoglobin (Bld) [Mass/Vol] 11.3 g/dL Critically low 12.0-16.0 [facility] Comment on above: Performed By: #### C BC #### [facility] [address] [place] [address] Dr. Jessica Saravia IG # 0.03 10e3/ul Normal 0.00-0.03 [facility] Comment on above: Performed By: #### C BC #### [facility] [address] [place] [address] Dr. Jessica Saravia IG % 0.4 % Normal 0.0-0.5 [facility] Comment on above: Performed By: #### C BC #### [facility] [address] [place] [address] Dr. Jessica Saravia LYMPH # 1.4 103/ul Normal 1.2-3.8 [facility] Comment on above: Performed By: #### C BC #### [facility] [address] [place] [address] Dr. Jessica Saravia Lymphocytes/100 WBC (Bld) 20.4 % Critically low 20.5-60.0 [facility] Comment on above: Performed By: #### C BC #### [facility] [address] [place] [address] Dr. Jessica Saravia MANUAL DIFF REQ NO Normal [facility] Comment on above: Performed By: #### C BC #### [facility] [address] [address] [address] Jessica Saravia MCH (RBC) [Entitic mass] 27.5 pg Normal 26.7-34.0 [facility] Comment on above: Performed By: #### C BC #### [facility] [address] [place] [address] Dr. Jessica Saravia MCHC (RBC) [Mass/Vol] 32.6 g/dL Normal 29.9-35.2 [facility] Comment on above: Performed By: #### C BC #### [facility] [address] [place] [address] Dr. Jessica Saravia MCV (RBC) [Entitic vol] 84.4 fL Normal 81.0-99.0 [facility] Comment on above: Performed By: #### C BC #### [facility] [address] [place] [address] Dr. Jessica Saravia MONO # 0.8 103/ul Normal 0.3-0.8 [facility] Comment on above: Performed By: #### C BC #### [facility] [address] [place] [address] Dr. Jessica Saravia Monocytes/100 WBC (Bld) 12.1 % Critically high 1.7-12. 0 [facility] Comment on above: Performed By: #### C BC #### [facility] [address] [place] [address] Dr. Jessica Saravia NEUT # 4.1 103/ul Normal 1.4-6.5 [facility] Comment on above: Performed By: #### C BC #### [facility] [address] [place] [address] Dr. Jessica Saravia Neutrophils/100 WBC (Bld) 59.6 % Normal 43.0-75.0 [facility] Comment on above: Performed By: #### C BC #### [facility] [address] [place] [address] Dr. Jessica aSravia Platelet mean volume (Bld) [Entitic vol] 11.0 fL Normal 9.5-13.5 [facility] Comment on above: Performed By: #### C BC #### [facility] [address] [place] [address] Dr. Jessica Saravia PLT 236 103/ul Normal 150-450 [facility] Comment on above: Performed By: #### C BC #### [facility] [address] [place] [address] Dr. Jessica Saravia RBC 4.11 106/ul Critically low 4.20-5.40 [facility] Comment on above: Performed By: #### C BC #### [facility] [address] [place] [address] Dr. Jessica Saravia WBC 6.9 103/ul Normal 4.0-11.0 [facility] Comment on above: Performed By: #### C BC #### [facility] [address] [place] [address] Dr. Jessica Saravia CREATININEon 11-12-2022 Creatinine [Mass/Vol] 0.85 mg/dL Normal 0.55-1.02 [facility] Comment on above: Performed By: #### L IVER #### [facility] [address] [place] [address] Dr. Jessica Saravia EGFR-AF IRAQI >60 Normal >=60 [facility] Comment on above: Performed By: #### L IVER #### [facility] [address] [place] [address] Dr. Jessica Saravia EGFR-NON AF IRAQI >60 Normal >=60 [facility] Comment on above: Performed By: #### L IVER #### [facility] [address] [place] [address] Dr. Jessica Saravia LIPID PROFILEon 11-12-2022 CHOL-HDL RATIO NORM SEE BELOW Normal [facility] Comment on above: Result Comment: 3.3 - 4.4 LOW RISK 4.4 - 7.1 AVERAGE RISK 7.1 - 11.0 MODERATE RISK >11.0 HIGH RISK Performed By: #### C BC #### [facility] [address] [place] [address] Dr. Jessica Saravia Cholesterol [Mass/Vol] 171 mg/dL Normal <=200 [facility] Comment on above: Performed By: #### C BC #### [facility] [address], [place] [address] Dr. Jessica Saravia Cholesterol in HDL [Mass/Vol] 33 mg/dL Critically low 40-60 [facility] Comment on above: Performed By: #### C BC #### [facility] [address] [place], [place] [address] Dr. Jessica Saravia Cholesterol in LDL [Mass/Vol] 108.2 mg/dL Normal [facility] Comment on above: Performed By: #### C BC #### [facility] [address] [address] [address] Jessica Saravia Cholesterol.total/Cindy sterol in HDL [Mass ratio] 5.2 {ratio} Normal [facility] Comment on above: Performed By: #### C BC #### [facility] [address] [address] [address] Jessica Saravia HDL NORMAL > or = 60 mg/dl - LOW CARDIOVASCULAR RISK <40 mg/dl - HIGH CARDIOVASCULAR RISK Normal [facility] Comment on above: Performed By: #### C BC #### [facility] [address] [address] [address] Jessica Saravia LDL CALC NORMAL SEE BELOW Normal [facility] Comment on above: Result Comment: <100 mg/dl OPTIMAL 100 - 129 mg/dl NEAR OR ABOVE OPTIMAL 130 - 159 mg/dl BORDERLINE HIGH 160 - 189 mg/dl HIGH >190 mg/dl VERY HIGH Performed By: #### C BC #### [facility] [address] [address] [address] Jessica Saravia Triglyceride [Mass/Vol] 149 mg/dL Normal <=150 T [facility] Comment on above: Performed By: #### C BC #### [facility] [address] [address] [address] Jessica Saravia VLDL CALC 29.8 mg/dL Normal [facility] Comment on above: Performed By: #### C BC #### [facility] [address] [address] [address] Jessica Saravia LIVER PROFILEon 11-12-2022 Albumin [Mass/Vol] 2.8 g/dL Critically low 3.4-5.0 e [facility] Comment on above: Performed By: #### L IVER #### [facility] [address] [address] [address] Jessica Saravia Albumin/Globulin [Mass ratio] 0.7 {ratio} Normal [facility] Comment on above: Performed By: #### L IVER #### [facility] [address] [address] [address] Jessica Saravia ALP [Catalytic activity/Vol] 159 U/L Critically high 46-116 [facility] Comment on above: Performed By: #### L IVER #### [facility] [address] [address] [address] Jessica Saravia ALT [Catalytic activity/Vol] 37 U/L Normal 14-59 [facility] Comment on above: Performed By: #### L IVER #### [facility] [address] [address] [address] Jessica Saravia AST [Catalytic activity/Vol] 24 U/L Normal 15-37 [facility] Comment on above: Performed By: #### L IVER #### [facility] [address] [address] [address] Jessica DAILEYI, CONJUGATED 0.1 mg/dL Normal 0.0-0.2 [facility] Comment on above: Performed By: #### L IVER #### [facility] [address] [address] [address] Jessica Saravia Bilirubin [Mass/Vol] 0.4 mg/dL Normal 0.2-1.0 [facility] Comment on above: Performed By: #### L IVER #### [facility] [address] [address] [address] Jessica Saravia Globulin (S) [Mass/Vol] 4.2 g/dL Normal T [facility] Comment on above: Performed By: #### L IVER #### [facility] [address] [address] [address] Jessica Saravia Protein [Mass/Vol] 7.0 g/dL Normal 6.4-8.2 [facility] Comment on above: Performed By: #### L IVER #### [facility] [address], [place] [address] Dr. Jessica Saravia SED RATE ALEXANDRIAERGRENon 2022 SED RATE 80 mm/hr Critically high <=30 [facility] Comment on above: Performed By: #### C BC #### [facility] [address], [place] [address] Dr. Jessica Saravia Tobacco Screening.on 023 Adult depression screening assessment No -[facility] [address] DO Work Phone: Fall risk assessment a) No falls within the last year [facility] 250 DO Work Phone: Tobacco use status CPHS b) No M [facility] 250 DO Work Phone: CT CHEST WO [...] ISAAC JONES Date: 2022-08-30 09:15 Normal [facility] CT CHEST WO CONon 06-24-2022 CT [...] and mammography follow-up is recommended. Normal [facility] CBC AUTO DIFFon 06-16-2022 BASO # 0.1 103/ul Normal 0.0-0.1 [facility] Comment on above: Performed By: #### C BC #### [facility] [address] [address] [address] Jessica Saravia Basophils/100 WBC (Bld) 1.0 % Normal 0.2-2.0 [facility] Comment on above: Performed By: #### C BC #### [facility] [address] [address] [address] Jessica Saravia EO # 0.4 103/ul Normal 0.0-0.7 [facility] Comment on above: Performed By: #### C BC #### [facility] [address] [address] [address] Jessica Saravia Eosinophils/100 WBC (Bld) 5.1 % Normal 0.9-7.0 [facility] Comment on above: Performed By: #### C BC #### [facility] [address] [place] [address] Dr. Jessica Saravia Erythrocyte distribution width (RBC) [Ratio] 16.6 % Critically high 11.0-15.0 [facility] Comment on above: Performed By: #### C BC #### [facility] [address] [place] [address] Dr. Jessica Saravia Hematocrit (Bld) [Volume fraction] 34.1 % Critically low 36.0-48.0 [facility] Comment on above: Performed By: #### C BC #### [facility] [address] [place] [address] Dr. Jessica Saravia Hemoglobin (Bld) [Mass/Vol] 10.6 g/dL Critically low 12.0-16.0 [facility] Comment on above: Performed By: #### C BC #### [facility] [address] [place] [address] Dr. Jessica Saravia IG # 0.02 10e3/ul Normal 0.00-0.03 [facility] Comment on above: Performed By: #### C BC #### [facility] [address] [place] [address] Dr. Jessica Saravia IG % 0.3 % Normal 0.0-0.5 [facility] Comment on above: Performed By: #### C BC #### [facility] [address] [address] [address] Jessica Saravia LYMPH # 1.4 103/ul Normal 1.2-3.8 [facility] Comment on above: Performed By: #### C BC #### [facility] [address] [address] [address] Jessica Saravia Lymphocytes/100 WBC (Bld) 19.6 % Critically low 20.5-60.0 [facility] Comment on above: Performed By: #### C BC #### [facility] [address] [place] [address] Dr. Jessica Saravia MANUAL DIFF REQ NO Normal [facility] Comment on above: Performed By: #### C BC #### [facility] [address] [place] [address] Dr. Jessica Saravia MCH (RBC) [Entitic mass] 27.9 pg Normal 26.7-34.0 [facility] Comment on above: Performed By: #### C BC #### [facility] [address] [place] [address] Dr. Jessica Saravia MCHC (RBC) [Mass/Vol] 31.1 g/dL Normal 29.9-35.2 [facility] Comment on above: Performed By: #### C BC #### [facility] [address] [place] [address] Dr. Jessica Saravia MCV (RBC) [Entitic vol] 89.7 fL Normal 81.0-99.0 [facility] Comment on above: Performed By: #### C BC #### [facility] [address] [place] [address] Dr. Jessica Saravia MONO # 1.0 103/ul Critically high 0.3-0.8 [facility] Comment on above: Performed By: #### C BC #### [facility] [address] [place] [address] Dr. Jessica Saravia Monocytes/100 WBC (Bld) 14.2 % Critically high 1.7-12. 0 [facility] Comment on above: Performed By: #### C BC #### [facility] [address] [place] [address] Dr. Jessica Saravia NEUT # 4.3 103/ul Normal 1.4-6.5 [facility] Comment on above: Performed By: #### C BC #### [facility] [address] [address] [address] Jessica Saravia Neutrophils/100 WBC (Bld) 59.8 % Normal 43.0-75.0 [facility] Comment on above: Performed By: #### C BC #### [facility] [address] [place] [address] Dr. Jessica Saravia Platelet mean volume (Bld) [Entitic vol] 11.9 fL Normal 9.5-13.5 [facility] Comment on above: Performed By: #### C BC #### [facility] [address] [place] [address] Dr. Jessica Saravia PLT 235 103/ul Normal 150-450 [facility] Comment on above: Performed By: #### C BC #### [facility] [address] [place] [address] Dr. Jessica Saravia RBC 3.80 106/ul Critically low 4.20-5.40 [facility] Comment on above: Performed By: #### C BC #### [facility] [address] [place] [address] Dr. Jessica Saravia WBC 7.3 103/ul Normal 4.0-11.0 [facility] Comment on above: Performed By: #### C BC #### [facility] [address] [place] [address] Dr. Jessica Saravia CREATININEon 06-16-2022 Creatinine [Mass/Vol] 1.06 mg/dL Critically high 0.55-1.02 [facility] Comment on above: Performed By: #### ARGENIS RODAS #### [facility] [address] [place] [address] Dr. Jessica Saravia EGFR-AF IRAQI >60 Normal >=60 [facility] Comment on above: Performed By: #### ARGENIS RODAS #### [facility] [address] [address] [address] Jessica Saravia EGFR-NON AF IRAQI 52 mL/min/1.73m2 Critically low >=60 [facility] Comment on above: Performed By: #### L JONATHAN, CREA #### [facility] [address] [address] [address] Jessica Saravia LIVER PROFILEon 06-16-2022 Albumin [Mass/Vol] 2.8 g/dL Critically low 3.4-5.0 [facility] Comment on above: Performed By: #### L JONATHAN CREA #### [facility] [address] [address] [address] Jessica Saravia Albumin/Globulin [Mass ratio] 0.7 {ratio} Normal [facility] Comment on above: Performed By: #### L JONATHAN CREA #### [facility] [address] [address] [address] Jessica Saravia ALP [Catalytic activity/Vol] 112 U/L Normal 46-116 [facility] Comment on above: Performed By: #### L JONATHAN CREA #### [facility] [address] [address] [address] Jessica Saravia ALT [Catalytic activity/Vol] 19 U/L Normal 14-59 [facility] Comment on above: Performed By: #### L JONATHAN CREA #### [facility] [address] [address] [address] Jessica Saravia AST [Catalytic activity/Vol] 16 U/L Normal 15-37 [facility] Comment on above: Performed By: #### L JONATHAN CREA #### [facility] [address] [address] [address] Jessica Saravia BILI, CONJUGATED 0.1 mg/dL Normal 0.0-0.2 [facility] Comment on above: Performed By: #### L JONATHAN, CREA #### [facility] [address] [address] [address] Jessica Saravia Bilirubin [Mass/Vol] 0.3 mg/dL Normal 0.2-1.0 [facility] Comment on above: Performed By: #### L JONATHAN CREShiloh #### [facility] [address] [address] [address] Jessica Saravia Globulin (S) [Mass/Vol] 4.1 g/dL Normal T [facility] Comment on above: Performed By: #### L JONATHAN CREA #### [facility] [address] [place] [address] Dr. Jessica Saravia Protein [Mass/Vol] 6.9 g/dL Normal 6.4-8.2 [facility] Comment on above: Performed By: #### L ARGENIS CASTILLO #### [facility] [address] [place] [address] Dr. Jessica Saravia SED RATE WESTERGRENon 2021 SED RATE 82 mm/hr Critically high <=30 [facility] Comment on above: Performed By: #### S EDR #### [facility] [address] [place] [address] Dr. Jessica Saravia US SINGLE QUAD RT [...] ISAAC JONES Date: 2022-05-01 09:07 Normal [facility] CBC AUTO DIFFon 03-21-2022 BASO # 0.1 103/ul Normal 0.0-0.1 [facility] Comment on above: Performed By: #### C BC #### [facility] [address] [place] [address] Dr. Jessica Saravia Basophils/100 WBC (Bld) 1.3 % Normal 0.2-2.0 T [facility] Comment on above: Performed By: #### C BC #### [facility] [address] [place] [address] Dr. Jessica Saravia EO # 0.4 103/ul Normal 0.0-0.7 [facility] Comment on above: Performed By: #### C BC #### [facility] [address] [place] [address] Dr. Jessica Saravia Eosinophils/100 WBC (Bld) 5.4 % Normal 0.9-7.0 [facility] Comment on above: Performed By: #### C BC #### [facility] [address] [place] [address] Dr. Jessica Saravia Erythrocyte distribution width (RBC) [Ratio] 17.3 % Critically high 11.0-15.0 [facility] Comment on above: Performed By: #### C BC #### [facility] [address] [place] [address] Dr. Jessica Saravia Hematocrit (Bld) [Volume fraction] 36.4 % Normal 36.0-48.0 [facility] Comment on above: Performed By: #### C BC #### [facility] [address] [place] [address] Dr. Jessica Saravia Hemoglobin (Bld) [Mass/Vol] 10.5 g/dL Critically low 12.0-16.0 [facility] Comment on above: Performed By: #### C BC #### [facility] [address] [place] [address] Dr. Jessica Saravia IG # 0.02 10e3/ul Normal 0.00-0.03 [facility] Comment on above: Performed By: #### C BC #### [facility] [address] [place] [address] Dr. Jessica Saravia IG % 0.3 % Normal 0.0-0.5 [facility] Comment on above: Performed By: #### C BC #### [facility] [address] [place] [address] Dr. Jessica Saravia LYMPH # 1.2 103/ul Normal 1.2-3.8 [facility] Comment on above: Performed By: #### C BC #### [facility] [address] [place] [address] Dr. Jessica Saravia Lymphocytes/100 WBC (Bld) 16.3 % Critically low 20.5-60.0 [facility] Comment on above: Performed By: #### C BC #### [facility] [address] [place] [address] Dr. Jessica Saravia MANUAL DIFF REQ NO Normal [facility] Comment on above: Performed By: #### C BC #### [facility] [address] [place] [address] Dr. Jessica Saravia MCH (RBC) [Entitic mass] 25.1 pg Critically low 26.7-34.0 [facility] Comment on above: Performed By: #### C BC #### [facility] [address] [place] [address] Dr. Jessica Saravia MCHC (RBC) [Mass/Vol] 28.8 g/dL Critically low 29.9-35.2 [facility] Comment on above: Result Comment: hypo chromic Performed By: #### C BC #### [facility] [address] [place] [address] Dr. Jessica Saravia MCV (RBC) [Entitic vol] 87.1 fL Normal 81.0-99.0 [facility] Comment on above: Performed By: #### C BC #### [facility] [address] [place] [address] Dr. Jessica Saravia MONO # 0.9 103/ul Critically high 0.3-0.8 [facility] Comment on above: Performed By: #### C BC #### [facility] [address] [place] [address] Dr. Jessica Saravia Monocytes/100 WBC (Bld) 12.0 % Normal 1.7-12.0 [facility] Comment on above: Performed By: #### C BC #### [facility] [address] [place] [address] Dr. Jessica Saravia NEUT # 4.7 103/ul Normal 1.4-6.5 [facility] Comment on above: Performed By: #### C BC #### [facility] [address] [address] [address] Jessica Saravia Neutrophils/100 WBC (Bld) 64.7 % Normal 43.0-75.0 [facility] Comment on above: Performed By: #### C BC #### [facility] [address] [address] [address] Jessica Saravia Platelet mean volume (Bld) [Entitic vol] 12.3 fL Normal 9.5-13.5 [facility] Comment on above: Performed By: #### C BC #### [facility] [address] [place] [address] Dr. Jessica Saravia PLT 284 103/ul Normal 150-450 [facility] Comment on above: Performed By: #### C BC #### [facility] [address] [place] [address] Dr. Jessica Saravia RBC 4.18 106/ul Critically low 4.20-5.40 [facility] Comment on above: Performed By: #### C BC #### [facility] [address] [address] [address] Jessica Saravia WBC 7.2 103/ul Normal 4.0-11.0 [facility] Comment on above: Performed By: #### C BC #### [facility] [address] [place] [address] Dr. Jessica Saravia CREATININEon 03-21-2022 Creatinine [Mass/Vol] 1.05 mg/dL Critically high 0.55-1.02 [facility] Comment on above: Performed By: #### L IVER #### [facility] [address] [address] [address] Jessica Saravia EGFR-AF IRAQI >60 Normal >=60 [facility] Comment on above: Performed By: #### L IVER #### [facility] [address] [address] [address] Jessica Saravia EGFR-NON AF IRAQI 53 mL/min/1.73m2 Critically low >=60 [facility] Comment on above: Performed By: #### L IVER #### [facility] [address] [address] [address] Jessica Saravia LIVER PROFILEon 03-21-2022 Albumin [Mass/Vol] 2.9 g/dL Critically low 3.4-5.0 [facility] Comment on above: Performed By: #### L IVER #### [facility] [address] [address] [address] Jessica Saravia Albumin/Globulin [Mass ratio] 0.7 {ratio} Normal [facility] Comment on above: Performed By: #### L IVER #### [facility] [address] [address] [address] Jessica Saravia ALP [Catalytic activity/Vol] 86 U/L Normal 46-116 [facility] Comment on above: Performed By: #### L IVER #### [facility] [address] [address] [address] Jessica Saravia ALT [Catalytic activity/Vol] 18 U/L Normal 14-59 [facility] Comment on above: Performed By: #### L IVER #### [facility] [address] [address] [address] Jessica Saravia AST [Catalytic activity/Vol] 13 U/L Critically low 15-37 [facility] Comment on above: Performed By: #### L IVER #### [facility] [address] [address] [address] Jessica Saravia BILI, CONJUGATED 0.1 mg/dL Normal 0.0-0.2 [facility] Comment on above: Performed By: #### L IVER #### [facility] [address] [address] [address] Jessica Saravia Bilirubin [Mass/Vol] 0.4 mg/dL Normal 0.2-1.0 [facility] Comment on above: Performed By: #### L IVER #### [facility] [address] [address] [address] Jessica Saravia Globulin (S) [Mass/Vol] 4.1 g/dL Normal T [facility] Comment on above: Performed By: #### L IVER #### [facility] [address], [place] [address] Dr. Jessica Saravia Protein [Mass/Vol] 7.0 g/dL Normal 6.4-8.2 [facility] Comment on above: Performed By: #### L IVER #### [facility] [address], [place] [address] Dr. [facility] mm/hr Critically high <=30 [facility] Comment on above: Performed By: #### L IVER #### [facility] [address], [place] [address] Dr. Jessica Saravia Activated partial thrombopla stin time (aPTT) in platelet poor plasma by coagulation aOrdered By: Marcin Patel on 03-01-2022 aPTT Coag (PPP) [Time] 31.7 s 25.1-36.5 [facility] - CoagulationOrde red By: Marcin Patel on 03-01-2022 PT Coag (PPP) [Time] 13.1 s 9.0-12.9 [facility] Platelet poor plasma interna tional normalized ratio (INR) by coagulation assay (relatOrdered By: Marcin Patel on 03-01-2022 INR Coag (PPP) [Relative time] 1.2 {INR} [facility] Comment on above: INR Therapeutic Rang [...] 03-01-2022 Platelets (Bld) [#/Vol] 188 10*3/uL 150-450 [facility] Glucose Glucometer (BldC) [M ass/Vol]Ordered By: Floresita Gonzalez on 02-07-2022 Glucose [Mass/Vol] 153 mg/dL [facility] Comment on above: Random Glucose Refer ence Range is dependent on time and content of last meal. Glucose of more than 200 mg/dL in a nonstressed, ambulatory subject supports the diagnosis of Diabetes Mellitus. No Panel InformationOrdered By: Floresita Gonzalez on 02-07-2022 Bedside Glucose Comment Glu2: cleaned meter [facility] CBC AUTO DIFFon 01-26-2022 BASO # 0.1 103/ul Normal 0.0-0.1 [facility] Comment on above: Performed By: #### C BC #### [facility] [address] [address] [address] Jessica Saravia Basophils/100 WBC (Bld) 1.3 % Normal 0.2-2.0 [facility] Comment on above: Performed By: #### C BC #### [facility] [address] [address] [address] Jessica Saravia EO # 0.4 103/ul Normal 0.0-0.7 [facility] Comment on above: Performed By: #### C BC #### [facility] [address] [address] [address] Jessica Saravia Eosinophils/100 WBC (Bld) 4.6 % Normal 0.9-7.0 [facility] Comment on above: Performed By: #### C BC #### [facility] [address] [address] [address] Jessica Saravia Erythrocyte distribution width (RBC) [Ratio] 18.3 % Critically high 11.0-15.0 [facility] Comment on above: Performed By: #### C BC #### [facility] [address] [address] [address] Jessica Saravia Hematocrit (Bld) [Volume fraction] 28.7 % Critically low 36.0-48.0 [facility] Comment on above: Performed By: #### C BC #### [facility] [address] [address] [address] Jessica Saravia Hemoglobin (Bld) [Mass/Vol] 8.3 g/dL Critically low 12.0-16.0 [facility] Comment on above: Performed By: #### C BC #### [facility] [address] [address] [address] Jessica Saravia IG # 0.12 10e3/ul Critically high 0.00-0.03 [facility] Comment on above: Performed By: #### C BC #### [facility] [address] [place] [address] Dr. Jessica Saravia IG % 1.6 % Critically high 0.0-0.5 [facility] Comment on above: Performed By: #### C BC #### [facility] [address] [place] [address] Dr. Jessica Saravia LYMPH # 1.4 103/ul Normal 1.2-3.8 [facility] Comment on above: Performed By: #### C BC #### [facility] [address] [place] [address] Dr. Jessica Saravia Lymphocytes/100 WBC (Bld) 18.3 % Critically low 20.5-60.0 [facility] Comment on above: Performed By: #### C BC #### [facility] [address] [place] [address] Dr. Jessica Saravia MANUAL DIFF REQ NO Normal [facility] Comment on above: Performed By: #### C BC #### [facility] [facility] [address] [place] [address] Dr. Jessica Saravia MCH (RBC) [Entitic mass] 26.4 pg Critically low 26.7-34.0 [facility] Comment on above: Performed By: #### C BC #### [facility] [address] [place] [address] Dr. Jessica Saravia MCHC (RBC) [Mass/Vol] 28.9 g/dL Critically low 29.9-35.2 [facility] Comment on above: Performed By: #### C BC #### [facility] [address] [place] [address] Dr. Jessica Saravia MCV (RBC) [Entitic vol] 91.4 fL Normal 81.0-99.0 [facility] Comment on above: Performed By: #### C BC #### [facility] [address] [place] [address] Dr. Jessica Saravia MONO # 1.0 103/ul Critically high 0.3-0.8 [facility] Comment on above: Performed By: #### C BC #### [facility] [address] [address] [address] Jessica Saravia Monocytes/100 WBC (Bld) 12.6 % Critically high 1.7-12. 0 [facility] Comment on above: Performed By: #### C BC #### [facility] [address] [place] [address] Dr. Jessica Saravia NEUT # 4.6 103/ul Normal 1.4-6.5 [facility] Comment on above: Performed By: #### C BC #### [facility] [address] [place] [address] Dr. Jessica Saravia Neutrophils/100 WBC (Bld) 61.6 % Normal 43.0-75.0 [facility] Comment on above: Performed By: #### C BC #### [facility] [address] [place] [address] Dr. Jessica Saravia Platelet mean volume (Bld) [Entitic vol] 12.4 fL Normal 9.5-13.5 [facility] Comment on above: Performed By: #### C BC #### [facility] [address] [place] [address] Dr. Jessica Saravia PLT 247 103/ul Normal 150-450 [facility] Comment on above: Performed By: #### C BC #### [facility] [address] [place] [address] Dr. Jessica Saravia RBC 3.14 106/ul Critically low 4.20-5.40 [facility] Comment on above: Performed By: #### C BC #### [facility] [address] [place] [address] Dr. Jessica Saravia WBC 7.5 103/ul Normal 4.0-11.0 [facility] Comment on above: Performed By: #### C BC #### [facility] [address] [place] [address] Dr. Jessica Saravia CREATININEon 01-26-2022 Creatinine [Mass/Vol] 0.88 mg/dL Normal 0.52-1.04 [facility] Comment on above: Performed By: #### C BC #### [facility] [address] [place] [address] Dr. Jessica Saravia EGFR-AF IRAQI >60 Normal >=60 [facility] Comment on above: Performed By: #### C BC #### [facility] [address] [place] [address] Dr. Jessica Saravia EGFR-NON AF IRAQI >60 Normal >=60 [facility] Comment on above: Performed By: #### C BC #### [facility] [address] [place] [address] Dr. Jessica Saravia LIVER PROFILEon 01-26-2022 Albumin [Mass/Vol] 2.7 g/dL Critically low 3.4-5.0 [facility] Comment on above: Performed By: #### C BC #### [facility] [address] [place] [address] Dr. Jessica Saravia Albumin/Globulin [Mass ratio] 0.7 {ratio} Normal [facility] Comment on above: Performed By: #### C BC #### [facility] [address] [place] [address] Dr. Jessica Saravia ALP [Catalytic activity/Vol] 82 U/L Normal 46-116 [facility] Comment on above: Performed By: #### C BC #### [facility] [address] [place] [address] Dr. Jessica Saravia ALT [Catalytic activity/Vol] 16 U/L Normal 14-59 [facility] Comment on above: Performed By: #### C BC #### [facility] [address] [place] [address] Dr. Jessica Saravia AST [Catalytic activity/Vol] 19 U/L Normal 15-37 [facility] Comment on above: Performed By: #### C BC #### [facility] [address] [place] [address] Dr. Jessica Saravia BILI, CONJUGATED 0.1 mg/dL Normal 0.0-0.3 [facility] Comment on above: Performed By: #### C BC #### [facility] [address] [address] [address] Jessica Saravia Bilirubin [Mass/Vol] 0.4 mg/dL Normal 0.2-1.3 [facility] Comment on above: Performed By: #### C BC #### [facility] [address] [address] [address] Jessica Saravia Globulin (S) [Mass/Vol] 4.0 g/dL Normal T [facility] Comment on above: Performed By: #### C BC #### [facility] [address] [place] [address] Dr. Jessica Saravia Protein [Mass/Vol] 6.7 g/dL Normal 6.1-8.2 [facility] Comment on above: Performed By: #### C BC #### [facility] [address] [address] [address] Jessica Saravia SED RATE WESTERGRENon 2021 SED RATE 97 mm/hr Critically high <=30 [facility] Comment on above: Performed By: #### C BC #### [facility] [address] [address] [address] Jessica Saravia URIC ACID SERUMon 01-26-2022 Urate [Mass/Vol] 4.4 mg/dL Normal 2.5-6.2 [facility] Comment on above: Performed By: #### C BC #### [facility] [address] [place] [address] Dr. Jessica Saravia Amphetamine Screen Ql (U)Ord ered By: Ferdinand Garcia on 12-28-2021 Amphetamines Ql (U) Negative Negative [facility] Barbiturates [Presence] in U rineOrdered By: Ferdinand Garcia on 12-28-2021 Barbiturates Ql (U) Negative Negative [facility] Benzodiazepines [Presence] i n UrineOrdered By: Ferdinand Garcia on 12-28-2021 Benzodiazepines Ql (U) Negative Negative [facility] Cannabinoids [Presence] in U rine by Screen methodOrdered By: Ferdinand Garcia on 12-28-2021 Cannabinoids Screen Ql (U) Positive Negative [facility] Comment on above: These are unconfirme d results and should not be used for legal purposes. Drug Cut-Off Concentration: AMPH 1000 ng/mL DARIANA 200 ng/mL AURY 200 ng/mL COCM 300 ng/mL OP 300 ng/mL PCP 25 ng/mL THC 20 ng/mL Glucose Glucometer (BldC) [M ass/Vol]Ordered By: Salty Gonzalez on 12-28-2021 Glucose [Mass/Vol] 154 mg/dL [facility] Comment on above: Random Glucose Refer ence Range is dependent on time and content of last meal. Glucose of more than 200 mg/dL in a nonstressed, ambulatory subject supports the diagnosis of Diabetes Mellitus. Laboratory - Drug toxicology Ordered By: Ferdinand Garcia on 12-28-2021 Opiates Ql (U) Negative Negative [facility] Phencyclidine Screen Ql (U)O rdered By: Ferdinand Garcia on 12-28-2021 Phencyclidine Ql (U) Negative Negative [facility] Urine cocaine detectionOrder ed By: Ferdinand Garcia on 12-28-2021 Cocaine Ql (U) Negative Negative [facility] CBC AUTO DIFFon 12-27-2021 BASO # 0.1 103/ul Normal 0.0-0.1 [facility] Comment on above: Performed By: #### C BC #### [facility] [address] [address] [address] Jessica Saravia Basophils/100 WBC (Bld) 1.0 % Normal 0.2-2.0 [facility] Comment on above: Performed By: #### C BC #### [facility] [address] [address] [address] Jessica Saravia EO # 0.3 103/ul Normal 0.0-0.7 [facility] Comment on above: Performed By: #### C BC #### [facility] [address] [address] [address] Jessica Saravia Eosinophils/100 WBC (Bld) 3.2 % Normal 0.9-7.0 [facility] Comment on above: Performed By: #### C BC #### [facility] [address] [place] [address] Dr. Jessica Saravia Erythrocyte distribution width (RBC) [Ratio] 16.8 % Critically high 11.0-15.0 [facility] Comment on above: Performed By: #### C BC #### [facility] [address] [place] [address] Dr. Jessica Saravia Hematocrit (Bld) [Volume fraction] 31.4 % Critically low 36.0-48.0 [facility] Comment on above: Performed By: #### C BC #### [facility] [address] [place] [address] Dr. Jessica Saravia Hemoglobin (Bld) [Mass/Vol] 9.5 g/dL Critically low 12.0-16.0 [facility] Comment on above: Performed By: #### C BC #### [facility] [address] [place] [address] Dr. Jessica Saravia IG # 0.02 10e3/ul Normal 0.00-0.03 [facility] Comment on above: Performed By: #### C BC #### [facility] [address] [place] [address] Dr. Jessica Saravia IG % 0.2 % Normal 0.0-0.5 [facility] Comment on above: Performed By: #### C BC #### [facility] [address] [place] [address] Dr. Jessica Saravia LYMPH # 2.2 103/ul Normal 1.2-3.8 [facility] Comment on above: Performed By: #### C BC #### [facility] [address] [place] [address] Dr. Jessica Saravia Lymphocytes/100 WBC (Bld) 26.5 % Normal 20.5-60.0 [facility] Comment on above: Performed By: #### C BC #### [facility] [address] [place] [address] Dr. Jessica Saravia MANUAL DIFF REQ NO Normal [facility] Comment on above: Performed By: #### C BC #### [facility] [address] [address] [address] Jessica Saravia MCH (RBC) [Entitic mass] 26.0 pg Critically low 26.7-34.0 [facility] Comment on above: Performed By: #### C BC #### [facility] [address] [place] [address] Dr. Jessica Saravia MCHC (RBC) [Mass/Vol] 30.3 g/dL Normal 29.9-35.2 [facility] Comment on above: Performed By: #### C BC #### [facility] [address] [place] [address] Dr. Jessica Saravia MCV (RBC) [Entitic vol] 86.0 fL Normal 81.0-99.0 [facility] Comment on above: Performed By: #### C BC #### [facility] [address] [place] [address] Dr. Jessica Saravia MONO # 0.9 103/ul Critically high 0.3-0.8 [facility] Comment on above: Performed By: #### C BC #### [facility] [address] [place] [address] Dr. Jessica Saravia Monocytes/100 WBC (Bld) 10.7 % Normal 1.7-12.0 [facility] Comment on above: Performed By: #### C BC #### [facility] [address] [place] [address] Dr. Jessica Saravia NEUT # 4.8 103/ul Normal 1.4-6.5 [facility] Comment on above: Performed By: #### C BC #### [facility] [address] [place] [address] Dr. Jessica Saravia Neutrophils/100 WBC (Bld) 58.4 % Normal 43.0-75.0 [facility] Comment on above: Performed By: #### C BC #### [facility] [address] [place] [address] Dr. Jessica Saravia Platelet mean volume (Bld) [Entitic vol] 11.5 fL Normal 9.5-13.5 [facility] Comment on above: Performed By: #### C BC #### [facility] [address] [address] [address] Jessica Saravia PLT 263 103/ul Normal 150-450 [facility] Comment on above: Performed By: #### C BC #### [facility] [address] [address] [address] Jessica Saravia RBC 3.65 106/ul Critically low 4.20-5.40 [facility] Comment on above: Performed By: #### C BC #### [facility] [address] [address] [address] Jessica Saravia WBC 8.2 103/ul Normal 4.0-11.0 [facility] Comment on above: Performed By: #### C BC #### [facility] [address] [place] [address] Dr. Jessica Saravia LIPID PROFILEon 12-27-2021 CHOL-HDL RATIO NORM SEE BELOW Normal [facility] Comment on above: Result Comment: 3.3 - 4.4 LOW RISK 4.4 - 7.1 AVERAGE RISK 7.1 - 11.0 MODERATE RISK >11.0 HIGH RISK Performed By: #### C BC #### [facility] [address] [place] [address] Dr. Jessica Saravia Cholesterol [Mass/Vol] 130 mg/dL Normal <=200 [facility] Comment on above: Performed By: #### C BC #### [facility] [address] [address] [address] Jessica Saravia Cholesterol in HDL [Mass/Vol] 27 mg/dL Normal [facility] Comment on above: Performed By: #### C BC #### [facility] [address] [address] [address] Jessica Saravia Cholesterol in LDL [Mass/Vol] 68.6 mg/dL Normal [facility] Comment on above: Performed By: #### C BC #### [facility] [address] [place] [address] Dr. Jessica Saravia Cholesterol.total/Cindy sterol in HDL [Mass ratio] 4.8 {ratio} Normal [facility] Comment on above: Performed By: #### C BC #### [facility] [address] [address] [address] Jessica Saravia HDL NORMAL > or = 60 mg/dl - LOW CARDIOVASCULAR RISK <40 mg/dl - HIGH CARDIOVASCULAR RISK Normal [facility] Comment on above: Performed By: #### C BC #### [facility] [address] [address] [address] Jessica Saravia LDL CALC NORMAL SEE BELOW Normal [facility] Comment on above: Result Comment: <100 mg/dl OPTIMAL 100 - 129 mg/dl NEAR OR ABOVE OPTIMAL 130 - 159 mg/dl BORDERLINE HIGH 160 - 189 mg/dl HIGH >190 mg/dl VERY HIGH Performed By: #### C BC #### [facility] [address] [place] [address] Dr. Jessica Saravia Triglyceride [Mass/Vol] 172 mg/dL Critically high <=150 [facility] Comment on above: Performed By: #### C BC #### [facility] [address] [place] [address] Dr. Jessica Saravia VLDL CALC 34.4 mg/dL Normal [facility] Comment on above: Performed By: #### C BC #### [facility] [address] [address] [address] Jessica Saravia LIVER PROFILEon 12-27-2021 Albumin [Mass/Vol] 2.5 g/dL Critically low 3.5-5.0 [facility] Comment on above: Performed By: #### L IVER #### [facility] [address] [place] [address] Dr. Jessica Saravia Albumin/Globulin [Mass ratio] 0.6 {ratio} Normal [facility] Comment on above: Performed By: #### L IVER #### [facility] [address] [place] [address] Dr. Jessica Saravia ALP [Catalytic activity/Vol] 80 U/L Normal 38-126 [facility] Comment on above: Performed By: #### L IVER #### [facility] [address] [place] [address] Dr. Jessica Saravia ALT [Catalytic activity/Vol] 16 U/L Normal 9-52 [facility] Comment on above: Performed By: #### L IVER #### [facility] [address] [place] [address] Dr. Jessica Saravia AST [Catalytic activity/Vol] 9 U/L Critically low 14-36 [facility] Comment on above: Performed By: #### L IVER #### [facility] [address] [place] [address] Dr. Jessica Saravia BILI, CONJUGATED 0.1 mg/dL Normal 0.0-0.3 [facility] Comment on above: Performed By: #### L IVER #### [facility] [address] [place] [address] Dr. Jessica Saravia Bilirubin [Mass/Vol] 0.3 mg/dL Normal 0.2-1.3 [facility] Comment on above: Performed By: #### L IVER #### [facility] [address] [place] [address] Dr. Jessica Saravia Globulin (S) [Mass/Vol] 4.1 g/dL Normal T [facility] Comment on above: Performed By: #### L IVER #### [facility] [address] [place] [address] Dr. Jessica Saravia Protein [Mass/Vol] 6.6 g/dL Normal 6.1-8.2 [facility] Comment on above: Performed By: #### L IVER #### [facility] [address] [place] [address] Dr. Jessica Saravia PROF CHEM 8 (BAS METB)on Anion gap [Moles/Vol] 11.6 mmol/L Normal [facility] Comment on above: Performed By: #### C BC #### [facility] [address] [place] [address] Dr. Jessica Saravia Calcium [Mass/Vol] 8.2 mg/dL Critically low 8.4-10.2 [facility] Comment on above: Performed By: #### C BC #### [facility] [address] [address] [address] Jessica Saravia Chloride [Moles/Vol] 103 mmol/L Normal 98-107 [facility] Comment on above: Performed By: #### C BC #### [facility] [address] [address] [address] Jessica Saravia CO2 [Moles/Vol] 30.0 mmol/L Normal 22.0-30.0 [facility] Comment on above: Performed By: #### C BC #### [facility] [address] [address] [address] Jessica Saravia Creatinine [Mass/Vol] 1.05 mg/dL Critically high 0.52-1.04 [facility] Comment on above: Performed By: #### C BC #### [facility] [address] [place] [address] Dr. Jessica Saravia EGFR-AF IRAQI >60 Normal >=60 [facility] Comment on above: Performed By: #### C BC #### [facility] [address] [place] [address] Dr. Jessica Saravia EGFR-NON AF IRAQI 53 mL/min/1.73m2 Critically low >=60 [facility] Comment on above: Performed By: #### C BC #### [facility] [address] [place] [address] Dr. Jessica Saravia Glucose [Mass/Vol] 214 mg/dL Critically high 74-106 [facility] Comment on above: Performed By: #### C BC #### [facility] [address] [place] [address] Dr. Jessica Saravia Potassium [Moles/Vol] 3.6 mmol/L Normal 3.4-5.0 [facility] Comment on above: Performed By: #### C BC #### [facility] [address] [place] [address] Dr. Jessica Saravia Sodium [Moles/Vol] 141 mmol/L Normal 137-145 [facility] Comment on above: Performed By: #### C BC #### [facility] [address] [place] [address] Dr. Jessica Saravia Urea nitrogen [Mass/Vol] 9.0 mg/dL Normal 7.0-17.0 [facility] Comment on above: Performed By: #### C BC #### [facility] [address] [place] [address] Dr. Jessica Saravia Urea nitrogen/Creatinine [Mass ratio] 8.6 mg/mg Normal [facility] Comment on above: Performed By: #### C BC #### [facility] [id number] Jessica Saravia SED RATE WESTERGRENon 2021 SED RATE 80 mm/hr Critically high <=30 [facility] Comment on above: Performed By: #### S EDR #### [facility] [address] [place] [address] Dr. Jessica Saravia COVID-19 Positive/NegativeOr dered By: Salty Gonzalez on 12-24-2021 SARS-CoV-2 (COVID-19) N gene AMA+probe Ql (Resp) Negative Negative [facility] Comment on above: Testing for SARS-CoV -2 by RT-PCRThis test was developed and its performance characteristics determined by [employer] ([employer] and validated at the [facility]. This test has not been FDA [...] 12-14-2021 Basophils (Bld) [#/Vol] 0.1 10*3/uL 0.0-0.2 [facility] Basophils/100 WBC Auto (Bld) Ordered By: Salty Gonzalez on 12-14-2021 Basophils/100 WBC (Bld) 1.5 % [facility] Blood hemoglobin measurement (mass/volume)Ordered By: Salty Gonzalez on 12-14-2021 Hemoglobin (Bld) [Mass/Vol] 10.7 g/dL 11.8-15.4 [facility] Blood leukocytes automated c ount (number/volume)Ordered By: Salty Gonzalez on 12-14-2021 WBC (Bld) [#/Vol] 7.2 10*3/uL 4.5-11.[address] [facility] Creatinine and Glomerular fi ltration rate.predicted panel (S/P/Bld)Ordered By: Salty Gonzalez on 12-14-2021 Creatinine [Mass/Vol] 0.98 mg/dL 0.44-1.03 [facility] Eosinophils Auto (Bld) [#/Vo l]Ordered By: Salty Gonzalez on 12-14-2021 Eosinophils (Bld) [#/Vol] 0.4 10*3/uL 0.0-0.45 [facility] Eosinophils/100 WBC Auto (Bl d)Ordered By: Salty Gonzalez on 12-14-2021 Eosinophils/100 WBC (Bld) 5.5 % [facility] Erythrocyte distribution wid th Auto (RBC) [Ratio]Ordered By: Salty Gonzalez on 12-14-2021 Erythrocyte distribution width (RBC) [Ratio] 17.4 % 11.9-15.3 [facility] Estimated glomerular filtrat ion rate (GFR) non- AmericanOrdered By: Salty Gonzalez on 12-14-2021 GFR/1.73 sq M.predicted among non-blacks MDRD (S/P/Bld) [Vol rate/Area] 57 mL/Min [facility] Hematocrit Auto (Bld) [Volum e fraction]Ordered By: Salty Gonzalez on 12-14-2021 Hematocrit (Bld) [Volume fraction] 33.6 % 34.0-46.4 [facility] - Hematology and Cell countsOrdered By: Salty Gonzalez on 12-14-2021 Nucleated RBC/100 WBC (Bld) [Ratio] 0.1 % 0-0.5 [facility] Lymphocytes Auto (Bld) [#/Vo l]Ordered By: Salty Gonzalez on 12-14-2021 Lymphocytes (Bld) [#/Vol] 1.4 10*3/uL 1.00-4.8 [facility] Lymphocytes/100 WBC Auto (Bl d)Ordered By: Salty Gonzalez on 12-14-2021 Lymphocytes/100 WBC (Bld) 19.0 % [facility] MCH Auto (RBC) [Entitic mass ]Ordered By: Salty Gonzalez on 12-14-2021 MCH (RBC) [Entitic mass] 26.7 pg 24.7-34.3 [facility] MCHC Auto (RBC) [Mass/Vol]Or dered By: Salty Gonzalez on 12-14-2021 MCHC (RBC) [Mass/Vol] 31.9 g/dL 32.0-35.0 [facility] MCV Auto (RBC) [Entitic vol] Ordered By: Salty Gonzalez on 12-14-2021 MCV (RBC) [Entitic vol] 83.5 fL 80-100 [facility] Monocytes Auto (Bld) [#/Vol] Ordered By: Salty Gonzalez on 12-14-2021 Monocytes (Bld) [#/Vol] 0.8 10*3/uL 0.0-0.8 [facility] Monocytes/100 WBC Auto (Bld) Ordered By: Salty Gonzalez on 12-14-2021 Monocytes/100 WBC (Bld) 11.0 % [facility] Neutrophils Auto (Bld) [#/Vo l]Ordered By: Salty Gonzalez on 12-14-2021 Neutrophils (Bld) [#/Vol] 4.5 10*3/uL 1.8-7.7 [facility] Neutrophils/100 WBC Auto (Bl d)Ordered By: Salty Gonzalez on 12-14-2021 Neutrophils/100 WBC (Bld) 63.0 % [facility] No Panel InformationOrdered By: Salty Gonzalez on 12-14-2021 Estimated GFR () > 60 mL/Min [facility] Comment on above: GFR estimated refere nce range: According to KDOQI guidelines, <60 ml/min/1.73m2 is sufficient to diagnose a patient with chronic kidney disease. Pharmacy Creatinine Clearance (Chem N/A [facility] Platelet mean volume Auto (B ld) [Entitic vol]Ordered By: Salty Gonzalez on 12-14-2021 Platelet mean volume (Bld) [Entitic vol] 10.1 fL 6.3-10.7 [facility] Platelets Auto (Bld) [#/Vol] Ordered By: Salty Gonzalez on 12-14-2021 Platelets (Bld) [#/Vol] 245 10*3/uL 150-450 [facility] RBC Auto (Bld) [#/Vol]Ordere d By: Salty Gonzalez on 12-14-2021 RBC (Bld) [#/Vol] 4.02 10*6/uL 3.60-5.00 [facility] Serum or plasma calcium kell urement (mass/volume)Ordered By: Salty Gonzalez on 12-14-2021 Calcium [Mass/Vol] 10.0 mg/dL 8.2-10.[address] [facility] Serum or plasma chloride jennifer surement (moles/volume)Ordered By: Salty Gonzalez on 12-14-2021 Chloride [Moles/Vol] 102 mmol/L 95-114 [facility] Serum or plasma glucose kell urement (mass/volume)Ordered By: Salty Gonzalez on 12-14-2021 Glucose [Mass/Vol] 226 mg/dL 70-[address] [facility] Comment on above: ADA recommended refe rence rangeRandom Glucose Reference Range is dependent on time and content of last meal. Glucose of more than 200 mg/dL in a nonstressed, ambulatory subject supports the diagnosis of Diabetes Mellitus. Serum or plasma potassium me asurement (moles/volume)Ordered By: Salty Gonzalez on 12-14-2021 Potassium [Moles/Vol] 3.9 mmol/L 3.5-5.1 [facility] Serum or plasma sodium measu rement (moles/volume)Ordered By: Salty Gonzalez on 12-14-2021 Sodium [Moles/Vol] 136 mmol/L 136-[address] [facility] Serum or plasma total carbon dioxide measurement (moles/volume)Ordered By: Salty Gonzalez on 12-14-2021 CO2 [Moles/Vol] 24.5 mmol/L 22.0-30.0 [place] Serum or plasma urea nitroge n measurement (mass/volume)Ordered By: Salty Gonzalez on 12-14-2021 Urea nitrogen [Mass/Vol] 9 mg/dL 07-08 [facility] CBC AUTO DIFFon 12-08-2021 BASO # 0.1 103/ul Normal 0.0-0.1 [facility] Comment on above: Performed By: #### L IVER #### [facility] [address] [place] [address] Dr. Jessica Saravia Basophils/100 WBC (Bld) 1.1 % Normal 0.2-2.0 [facility] Comment on above: Performed By: #### L IVER #### [facility] [address] [address] [address] Jessica Saravia EO # 0.4 103/ul Normal 0.0-0.7 [facility] Comment on above: Performed By: #### L IVER #### [facility] [address] [address] [address] Jessica Saravia Eosinophils/100 WBC (Bld) 4.1 % Normal 0.9-7.0 [facility] Comment on above: Performed By: #### L IVER #### [facility] [address] [address] [address] Jessica Saravia Erythrocyte distribution width (RBC) [Ratio] 16.8 % Critically high 11.0-15.0 [facility] Comment on above: Performed By: #### L IVER #### [facility] [address] [place] [address] Dr. Jessica Saravia Hematocrit (Bld) [Volume fraction] 37.1 % Normal 36.0-48.0 [facility] Comment on above: Performed By: #### L IVER #### [facility] [address] [place] [address] Dr. Jessica Saravia Hemoglobin (Bld) [Mass/Vol] 11.0 g/dL Critically low 12.0-16.0 [facility] Comment on above: Performed By: #### L IVER #### [facility] [address] [place] [address] Dr. Jessica Saravia IG # 0.02 10e3/ul Normal 0.00-0.03 [facility] Comment on above: Performed By: #### L IVER #### [facility] [address] [place] [address] Dr. Jessica Saravia IG % 0.2 % Normal 0.0-0.5 [facility] Comment on above: Performed By: #### L IVER #### [facility] [address] [place] [address] Dr. Jessica Saravia LYMPH # 1.5 103/ul Normal 1.2-3.8 [facility] Comment on above: Performed By: #### L IVER #### [facility] [address] [place] [address] Dr. Jessica Saravia Lymphocytes/100 WBC (Bld) 16.2 % Critically low 20.5-60.0 [facility] Comment on above: Performed By: #### L IVER #### [facility] [address] [place] [address] Dr. Jessica Saravia MANUAL DIFF REQ NO Normal [facility] Comment on above: Performed By: #### L IVER #### [facility] [address] [place] [address] Dr. Jessica Saravia MCH (RBC) [Entitic mass] 26.4 pg Critically low 26.7-34.0 [facility] Comment on above: Performed By: #### L IVER #### [facility] [address] [place] [address] Dr. Jessica Saravia MCHC (RBC) [Mass/Vol] 29.6 g/dL Critically low 29.9-35.2 [facility] Comment on above: Performed By: #### L IVER #### [facility] [address] [place] [address] Dr. Jessica Saravia MCV (RBC) [Entitic vol] 89.0 fL Normal 81.0-99.0 [facility] Comment on above: Performed By: #### L IVER #### [facility] [address] [place] [address] Dr. Jessica Saravia MONO # 0.8 103/ul Normal 0.3-0.8 [facility] Comment on above: Performed By: #### L IVER #### [facility] [address] [place] [address] Dr. Jessica Saravia Monocytes/100 WBC (Bld) 8.6 % Normal 1.7-12.0 [facility] Comment on above: Performed By: #### L IVER #### [facility] [address] [place] [address] Dr. Jessica Saravia NEUT # 6.3 103/ul Normal 1.4-6.5 [facility] Comment on above: Performed By: #### L IVER #### [facility] [address] [place] [address] Dr. Jessica Saravia Neutrophils/100 WBC (Bld) 69.8 % Normal 43.0-75.0 [facility] Comment on above: Performed By: #### L IVER #### [facility] [address] [place] [address] Dr. Jessica Saravia Platelet mean volume (Bld) [Entitic vol] 11.9 fL Normal 9.5-13.5 [facility] Comment on above: Performed By: #### L IVER #### [facility] [address] [address] [address] Jessica Saravia PLT 253 103/ul Normal 150-450 [facility] Comment on above: Performed By: #### L IVER #### [facility] [address] [place] [address] Dr. Jessica Saravia RBC 4.17 106/ul Critically low 4.20-5.40 [facility] Comment on above: Performed By: #### L IVER #### [facility] [address] [place] [address] Dr. Jessica Saravia WBC 9.0 103/ul Normal 4.0-11.0 [facility] Comment on above: Performed By: #### L IVER #### [facility] [address] [place] [address] Dr. Jessica Saravia CREATININEon 12-08-2021 Creatinine [Mass/Vol] 1.23 mg/dL Critically high 0.52-1.04 [facility] Comment on above: Performed By: #### C SARAH, LIVER #### [facility] [address] [place] [address] Dr. Jessica Saravia EGFR-AF IRAQI 53 mL/min/1.73m2 Critically low >=60 [facility] Comment on above: Performed By: #### C SARAH, LIVER #### [facility] [address] [place] [address] Dr. Jessica Saravia EGFR-NON AF IRAQI 44 mL/min/1.73m2 Critically low >=60 [facility] Comment on above: Performed By: #### C SARAH, LIVER #### [facility] [address] [place] [address] Dr. Jessica Saravia LIVER PROFILEon 12-08-2021 Albumin [Mass/Vol] 2.8 g/dL Critically low 3.5-5.0 [facility] Comment on above: Performed By: #### C SARAH, LIVER #### [facility] [address] [place] [address] Dr. Jessica Saravia Albumin/Globulin [Mass ratio] 0.7 {ratio} Normal [facility] Comment on above: Performed By: #### C SARAH, LIVER #### [facility] [address] [address] [address] Jessica Saravia ALP [Catalytic activity/Vol] 92 U/L Normal 38-126 [facility] Comment on above: Performed By: #### C SARAH, LIVER #### [facility] [address] [address] [address] Jessica Saravia ALT [Catalytic activity/Vol] 15 U/L Normal 9-52 [facility] Comment on above: Performed By: #### C SARAH, LIVER #### [facility] [address] [address] [address] Jessica Saravia AST [Catalytic activity/Vol] 15 U/L Normal 14-36 [facility] Comment on above: Performed By: #### C SARAH, LIVER #### [facility] [address] [address] [address] Jessica Saravia BILI, CONJUGATED 0.1 mg/dL Normal 0.0-0.3 [facility] Comment on above: Performed By: #### C SARAH, LIVER #### [facility] [address] [address] [address] Jessica Saravia Bilirubin [Mass/Vol] 0.4 mg/dL Normal 0.2-1.3 [facility] Comment on above: Performed By: #### C SARAH, LIVER #### [facility] [address] [address] [address] Jessica Saravia Globulin (S) [Mass/Vol] 4.3 g/dL Normal T [facility] Comment on above: Performed By: #### C SARAH, LIVER #### [facility] [address] [address] [address] Jessica Saravia Protein [Mass/Vol] 7.1 g/dL Normal 6.1-8.2 [facility] Comment on above: Performed By: #### C SARAH, LIVER #### [facility] [address] [address] [address] Jessica Saravia [facility] SED RATE 118 mm/hr Critically high <=30 [facility] Comment on above: Performed By: #### L JONATHAN #### [facility] [address] [place] [address] Dr. Jessica Saravia Office Visit (Cardiology)on 10-28-2021 Follow-up visit Diagnoses/Problems Assessed Status post insertion of drug eluting coronary artery stent (V45.82) (Z95.5) History of ST elevation myocardial infarction (STEMI) (412) (I25.2) Ischemic cardiomyopathy (414.8) (I25.5) HTN (hypertension) (401.9) (I10) Mixed hyperlipidemia (272.2) (E78.2) Diabetes mellitus (250.00) (E11.9) Coronary artery disease involving cap[place] grande coronary artery of cap[place] heart without angina pectoris (414.01) (I25.10) Rheumatoid arthritis (714.0) (M06.9) Never a smoker Morbid obesity with BMI of 40.0-44.9, adult (278.01,V85.41) (E66.01,Z68.41) Orders Coronary artery disease involving cap[place] grande coronary artery of [place] heart without angina pectoris, HTN (hypertension), Ischemic cardiomyopathy, Mixed hyperlipidemia ALT - Alanine Aminotransferase, Serum; Status:Active - Retrospective Authorization; Requested for:27Dec2021; AST; Status:Active - Retrospective Authorization; Requested for:27Dec2021; Basic Metabolic Panel; Status:Active - Retrospective Authorization; Requested for:27Dec2021; Lipid Panel; Status:Active - Retrospective Authorization; Requested for:27Dec2021; Coronary artery disease involving cap[place] grande coronary artery of [place] heart without angina pectoris, Mixed hyperlipidemia Stop: [...] 1/2 cup (more content not included)... Normal [facility] Tobacco Screening.on 022 Tobacco use status CPHS b) No M [address] [address] DO Work Phone: Echocardiogramon 10-04-[address], [place] [address] TRANSTHORACIC ECHOCARDIOGRAM REPORT Patient Name: CHUCKY Kilpatrick Physician: [id number] Kateryna DUNLAP MD Study Date: 10/04/2021 Referring [id number] LUKE HERRMANN Physician: MRN/PID: [id number] PCP: Reese Nixon MD Accession/Order#: [id number] [facility] Location: Date of : 1955 Fellow: Gender: F Nurse: Admit Date: Crusher Setter: Shana Phelps [facility], T Height: 162.56 cm CC Report to: Weight: 126.10 kg Study Type: Echocardiogram BSA: 2.25 m2 Blood Pressure: 144 /94 mmHg Diagnosis/ICD: I25.5-Ischemic cardiomyopathy Indication: CAD, [place] and PTCA-08/2021, Diabetes, Dyspnea, HTN, Rheumatoid Arthritis, Morbid Obesity Procedure/CPT: Echo Complete w Full [id number] Study Detail: The following Echo studies were [...] Normal Ranges: LVOT Diameter: 2.10 cm (1.8-2.4cm) [id number] Kateryna De Jesus MD Electronically signed on 10/04/2021 at 4:39:26 PM Final Normal [facility] Office Visit (Cardiology)on 10-04-2021 Follow-up visit Diagnoses/Problems Assessed Ischemic cardiomyopathy (414.8) (I25.5) Coronary artery disease involving [place] coronary artery of [place] heart without angina pectoris (414.01) (I25.10) HTN (hypertension) (401.9) (I10) Diabetes mellitus (250.00) (E11.9) Mixed hyperlipidemia (272.2) (E78.2) STEMI (ST elevation myocardial infarction) (410.90) (I21.3) Morbid obesity with BMI of 40.0-44.9, adult (278.01,V85.41) (E66.01,Z68.41) Orders Coronary artery disease involving cap[place] grande coronary artery of [place] heart without angina pectoris, Mixed hyperlipidemia ALT - Alanine Aminotransferase, Serum; Status:Active; Requested for:[id number]; AST; Status:Active; Requested for:[id number]; Lipid Panel; Status:Active; Requested for:[id number]; Ischemic cardiomyopathy Basic Metabolic Panel; Status:Active; Requested for:[id number]; Patient Instructions PLAN: Through informed decision making [...] list o (more content not included)... Normal [facility] Tobacco Screening.on Fall risk assessment a) No falls within the last year [facility] [address] [place] Work Phone: Tobacco use status CP b) No M [facility] [place] [address] [place] Work Phone: Office Visit (Cardiology)on 09-20-2021 Follow-up visit Diagnoses/Problems Assessed Ischemic cardiomyopathy (414.8) (I25.5) ICM HFrEF LVEF 35% Aug 2021 cath: FC II Stage C GDMT: coreg AND entresto added Aug 31, 2021 No aldactone currently Coronary artery disease involving cap[place] grande coronary artery of [place] heart without angina pectoris (414.01) (I25.10) Aug 23, 2021 aspiration thrombectomy PDA AngioJet thrombectomy p-mRCA PCI/[facility] 02/10 dRCA PCI/[place] p/mRCA No left system disease STEMI (ST elevation myocardial infarction) (410.90) (I21.3) Aug 23, 2021 [facility] Emeregent management Dr. Herrmann HTN (hypertension) (401.9) (I10) optimal Mixed hyperlipidemia (272.2) (E78.2) Atorvastatin was new at discharge Will need labs beginning of October Diabetes mellitus (250.00) (E11.9) Good control On ARNI/statin Morbid obesity with BMI of 40.0-44.9, adult (278.01,V85.41) (E66.01,Z68.41) Reviewed the merits of healthy lifestyle choices on overall cardiovascular health. Orders Coronary artery disease involving cap[place] grande coronary artery of [place] heart without angina pectoris, Mixed hyperlipidemia Start: [...] contact the office if new symptoms arise. 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 Normal [facility] Tobacco Screening.on 021 [facility] [email or web address] Work Phone: Tobacco use status [facility] b) No M TriageWaldron [employer] DO Work Phone: Tobacco Screening.on 021 Fall risk assessment a) No falls within the last year [facility] [email or web address] DO Work Phone: Tobacco use status [facility] b) No M [facility] [email or web address] DO Work Phone: Vital Signs Date Time Vital Sign Value Performing Clinician Facility 09-19-2024 15:47-0500 Body height 162.6 cm [employer] Work Phone: [facility] 09-19-2024 15:47-0500 Body mass index (BMI) [Ratio] 40.51 kg/m2 [employer] Work Phone: [facility] 09-19-2024 15:47-0500 Body weight 107.05 kg [employer] Work Phone: [facility] 09-19-2024 15:47-0500 Diastolic blood pressure 72 mm[Hg] [employer] Work Phone: [facility] 09-19-2024 15:47-0500 Systolic blood pressure 148 mm[Hg] Salty Youkrunalgage DO Work Phone: [facility] 07-30-2024 14:33-0400 Body height 162.6 cm Luke Herrmann DO Work Phone: [facility] 07-30-2024 14:33-0400 Body mass index (BMI) [Ratio] 40.85 kg/m2 Luke Herrmann DO Work Phone: [facility] 07-30-2024 14:33-0400 Body weight 107.96 kg Luke Herrmann DO Work Phone: [facility] 07-30-2024 14:33-0400 Diastolic blood pressure 70 mm[Hg] Luke Herrmann DO Work Phone: [facility] 07-30-2024 14:33-0400 Heart rate 72 /min Luke Herrmann DO Work Phone: [facility] 07-30-2024 14:33-0400 Systolic blood pressure 104 mm[Hg] Luke Herrmann DO Work Phone: [facility] 04-29-2024 11:25-0400 Body temperature 97.9 [degF] DO Reese House Work Phone: [facility] 04-29-2024 11:25-0400 Body weight 108.4 kg DO Reese House Work Phone: [facility] 04-29-2024 11:25-0400 Heart rate 82 /min DO Reese House Work Phone: [facility] 04-29-2024 11:25-0400 Respiratory rate 16 /min DO Reese House Work Phone: [facility] 04-29-2024 11:25-0400 SaO2% (BldA) [Mass fraction] 98 % DO Reese House Work Phone: [facility] 10-25-2023 12:59-0500 Body temperature 97.5 [degF] DO Reese House Work Phone: [facility] 10-25-2023 12:59-0500 Body weight 110.67 kg DO Reese House Work Phone: [facility] 10-25-2023 12:59-0500 Diastolic blood pressure 76 mm[Hg] DO Reese House Work Phone: [facility] 10-25-2023 12:59-0500 Heart rate 72 /min DO Reese House Work Phone: [facility] 10-25-2023 12:59-0500 Respiratory rate 16 /min DO Reese House Work Phone: [facility] 10-25-2023 12:59-0500 SaO2% (BldA) [Mass fraction] 100 % DO Reese House Work Phone: [facility] 10-25-2023 12:59-0500 Systolic blood pressure 119 mm[Hg] DO Reese House Work Phone: [facility] 08-10-2023 11:04-0400 Diastolic blood pressure 90 mm[Hg] Luke Herrmann DO Work Phone: [facility] 08-10-2023 11:04-0400 Systolic blood pressure 120 mm[Hg] Luke Herrmann DO Work Phone: [facility] 08-10-2023 10:35-0400 Body height 162.6 cm Luke Herrmann DO Work Phone: [facility] 08-10-2023 10:35-0400 Body mass index (BMI) [Ratio] 42.57 kg/m2 Luke Herrmann DO Work Phone: [facility] 08-10-2023 10:35-0400 Body weight 112.49 kg Luke Herrmann DO Work Phone: [facility] 08-10-2023 10:35-0400 Heart rate 74 /min Luke Herrmann DO Work Phone: [facility] 04-20-2023 11:22-0400 Body height 165.1 cm DO Reese House Work Phone: [facility] 04-20-2023 11:22-0400 Body temperature 98.4 [degF] DO Reese House Work Phone: [facility] 04-20-2023 11:22-0400 Body weight 110.81 kg DO Reese House Work Phone: [facility] 04-20-2023 11:22-0400 Diastolic blood pressure 81 mm[Hg] DO Reese House Work Phone: [facility] 04-20-2023 11:22-0400 Heart rate 86 /min DO Reese House Work Phone: [facility] 04-20-2023 11:22-0400 Respiratory rate 20 /min DO Reese House Work Phone: [facility] 04-20-2023 11:22-0400 SaO2% (BldA) [Mass fraction] 97 % DO Reese House Work Phone: [facility] 04-20-2023 11:22-0400 Systolic blood pressure 180 mm[Hg] DO Reese House Work Phone: [facility] 11-08-2022 10:34-0500 Body height 162.56 cm Reese P House Work Phone: [facility] [address] DO Work Phone: 11-08-2022 10:34-0500 Body mass index (BMI) [Ratio] 40.85 kg/m2 Reese P House Work Phone: [facility] [address] DO Work Phone: 11-08-2022 10:34-0500 Body surface area Derived from formula 2.11 m2 Reese P House Work Phone: [facility] [address] DO Work Phone: 11-08-2022 10:34-0500 Body weight 107.96 kg Reese P House Work Phone: [facility] [address] DO Work Phone: 11-08-2022 10:34-0500 Diastolic blood pressure 88 mm[Hg] Reese P House Work Phone: [facility] [address] DO Work Phone: 11-08-2022 10:34-0500 Heart rate 80 /min Reese P House Work Phone: [facility] [address] DO Work Phone: 11-08-2022 10:34-0500 Systolic blood pressure 138 mm[Hg] Reese P House Work Phone: [facility] [address] DO Work Phone: 10-13-2022 08:35-0500 Body temperature 97.8 [degF] DO Reese House Work Phone: [facility] 10-13-2022 08:35-0500 Body weight 106.7 kg DO Reese House Work Phone: [facility] 10-13-2022 08:35-0500 Diastolic blood pressure 78 mm[Hg] DO Reese House Work Phone: [facility] 10-13-2022 08:35-0500 Heart rate 79 /min DO Reese House Work Phone: [facility] 10-13-2022 08:35-0500 Respiratory rate 16 /min DO Reese House Work Phone: [facility] 10-13-2022 08:35-0500 SaO2% (BldA) [Mass fraction] 100 % DO Reese House Work Phone: [facility] 10-13-2022 08:35-0500 Systolic blood pressure 135 mm[Hg] DO Reese House Work Phone: [facility] 03-01-2022 09:02-0400 Body height 162.56 cm DO Reese House Work Phone: [facility] 03-01-2022 09:02-0400 Body mass index (BMI) [Ratio] 40.3 kg/m2 DO Reese House Work Phone: [facility] 03-01-2022 09:02-0400 Body weight 106.59 kg DO Reese House Work Phone: [facility] 03-01-2022 09:02-0400 Diastolic blood pressure 70 mm[Hg] DO Reese House Work Phone: [facility] 03-01-2022 09:02-0400 Heart rate 76 /min DO Reese House Work Phone: [facility] 03-01-2022 09:02-0400 Respiratory rate 18 /min DO Reese House Work Phone: [facility] 03-01-2022 09:02-0400 SaO2% (BldA) [Mass fraction] 98 % DO Reese House Work Phone: [facility] 03-01-2022 09:02-0400 Systolic blood pressure 133 mm[Hg] DO Reese House Work Phone: [facility] 02-02-2022 13:50-0400 Body temperature 98 [degF] DO Reese House Work Phone: [facility] 02-02-2022 13:50-0400 Body weight 110.67 kg DO Reese House Work Phone: [facility] 02-02-2022 13:50-0400 Diastolic blood pressure 72 mm[Hg] DO Reese House Work Phone: [facility] 02-02-2022 13:50-0400 Heart rate 80 /min DO Reese House Work Phone: [facility] 02-02-2022 13:50-0400 Respiratory rate 16 /min DO Reese House Work Phone: [facility] 02-02-2022 13:50-0400 SaO2% (BldA) [Mass fraction] 95 % DO Reese House Work Phone: [facility] 02-02-2022 13:50-0400 Systolic blood pressure 146 mm[Hg] DO Reese House Work Phone: [facility] 01-13-2022 08:19-0400 Body height 165.1 cm DO Reese House Work Phone: [facility] 12-28-2021 15:13-0400 Diastolic blood pressure 73 mm[Hg] DO Reese House Work Phone: [facility] 12-28-2021 15:13-0400 Heart rate 72 /min DO Reese House Work Phone: [facility] 12-28-2021 15:13-0400 Respiratory rate 18 /min DO Reese House Work Phone: [facility] 12-28-2021 15:13-0400 SaO2% (BldA) [Mass fraction] 95 % DO Reese House Work Phone: [facility] 12-28-2021 15:13-0400 Systolic blood pressure 141 mm[Hg] DO Reese House Work Phone: [facility] 12-28-2021 13:48-0400 Body temperature 98.1 [degF] DO Reese House Work Phone: [facility] 12-28-2021 13:48-0400 Inhaled oxygen flow rate 6 L/min DO Reese House Work Phone: [facility] 12-28-2021 11:39-0400 Body height 162.56 cm DO Reese House Work Phone: [facility] 12-28-2021 11:39-0400 Body mass index (BMI) [Ratio] 41.1 kg/m2 DO Reese House Work Phone: [facility] 12-28-2021 11:39-0400 Body weight 108.86 kg DO Reese House Work Phone: [facility] 11-16-2021 09:35-0500 Body temperature 97.9 [degF] DO Reese House Work Phone: [facility] 11-16-2021 09:35-0500 Diastolic blood pressure 60 mm[Hg] DO Reese House Work Phone: [facility] 11-16-2021 09:35-0500 Heart rate 67 /min DO Reese House Work Phone: [facility] 11-16-2021 09:35-0500 Respiratory rate 16 /min DO Reese House Work Phone: [facility] 11-16-2021 09:35-0500 SaO2% (BldA) [Mass fraction] 100 % DO Reese House Work Phone: [facility] 11-16-2021 09:35-0500 Systolic blood pressure 118 mm[Hg] DO Reese House Work Phone: [facility] 10-28-2021 11:19-0500 Diastolic blood pressure 84 mm[Hg] Reese P House Work Phone: [facility] [facility] DO Work Phone: 10-28-2021 11:19-0500 Systolic blood pressure 152 mm[Hg] Reese P House Work Phone: [facility] [facility] DO Work Phone: 10-28-2021 10:57-0500 Body height 162.56 cm Reese P House Work Phone: [facility] [address] DO Work Phone: 10-28-2021 10:57-0500 Body mass index (BMI) [Ratio] 43.77 kg/m2 Reese P House Work Phone: [facility] [facility] [place] 250 DO Work Phone: 10-28-2021 10:57-0500 Body surface area Derived from formula 2.17 m2 Reese P House Work Phone: [facility] [place] 250 DO Work Phone: 10-28-2021 10:57-0500 Body weight 115.67 kg Reese P House Work Phone: [facility] 250 DO Work Phone: 10-28-2021 10:57-0500 Diastolic blood pressure 100 mm[Hg] Reese P House Work Phone: [facility] [place] 250 DO Work Phone: 10-28-2021 10:57-0500 Heart rate 77 /min Reese P House Work Phone: [facility] 250 DO Work Phone: 10-28-2021 10:57-0500 Systolic blood pressure 165 mm[Hg] Reese P House Work Phone: [facility] [place] 250 DO Work Phone: 10-11-2021 13:37-0500 Diastolic blood pressure 84 mm[Hg] Reese P House Work Phone: [facility] 250 DO Work Phone: 10-11-2021 13:37-0500 Heart rate 82 /min Reese P House Work Phone: [facility] [place] 250 DO Work Phone: 10-11-2021 13:37-0500 Systolic blood pressure 160 mm[Hg] Reese P House Work Phone: [facility] [place] 250 DO Work Phone: 10-11-2021 13:30-0500 Body height 162.56 cm Reese P House Work Phone: [facility] 250 DO Work Phone: 10-11-2021 13:30-0500 Body mass index (BMI) [Ratio] 44.29 kg/m2 Reese P House Work Phone: [facility] [place] 250 DO Work Phone: 10-11-2021 13:30-0500 Body surface area Derived from formula 2.18 m2 Reese P House Work Phone: [facility] [place] 250 DO Work Phone: 10-11-2021 13:30-0500 Body weight 117.03 kg Reese P House Work Phone: [facility] [place] 250 DO Work Phone: 10-11-2021 13:30-0500 Diastolic blood pressure 100 mm[Hg] Reese P House Work Phone: [facility] [place] 250 DO Work Phone: 10-11-2021 13:30-0500 Systolic blood pressure 160 mm[Hg] Reese P House Work Phone: [facility] [place] 250 DO Work Phone: 10-05-2021 08:27-0500 28.8 1 Reese P House Work Phone: [facility] [place] 250 DO Work Phone: Comment on above: [id number] 10-04-2021 12:36-0500 Body height 162.56 cm Reese P House Work Phone: [facility] [address] [place] Work Phone: 10-04-2021 12:36-0500 Body mass index (BMI) [Ratio] 44.11 kg/m2 Reese P House Work Phone: [facility] [place] 250[address] [place] Work Phone: 10-04-2021 12:36-0500 Body surface area Derived from formula 2.18 m2 Reese P House Work Phone: [facility] [address] [place] Work Phone: 10-04-2021 12:36-0500 Body weight 116.58 kg Reese P House Work Phone: [facility] [place] 250[address] [place] Work Phone: 10-04-2021 12:36-0500 Diastolic blood pressure 94 mm[Hg] Reese P House Work Phone: [facility] [address] [place] Work Phone: 10-04-2021 12:36-0500 Heart rate 72 /min Reese P House Work Phone: [facility] [place] [address] [place] Work Phone: 10-04-2021 12:36-0500 Systolic blood pressure 158 mm[Hg] Reese P House Work Phone: [facility] [address] [place] Work Phone: 10-04-2021 12:36-0500 55 1 Resee P House Work Phone: [facility] [place] [address] [place] Work Phone: Comment on above: [id number] 09-20-2021 12:36-0500 Body height 162.56 cm Reese P House Work Phone: [facility] [place] 250 DO Work Phone: 09-20-2021 12:36-0500 Body mass index (BMI) [Ratio] 44.8 kg/m2 Reese P House Work Phone: [facility] [place] 250 DO Work Phone: 09-20-2021 12:36-0500 Body surface area Derived from formula 2.19 m2 Reese P House Work Phone: [facility] [place] 250 DO Work Phone: 09-20-2021 12:36-0500 Body weight 118.39 kg Reese P House Work Phone: [facility] 250 DO Work Phone: 09-20-2021 12:36-0500 Diastolic blood pressure 84 mm[Hg] Reese P House Work Phone: [facility] [place] 250 DO Work Phone: 09-20-2021 12:36-0500 Heart rate 74 /min Reese P House Work Phone: [facility] 250 DO Work Phone: 09-20-2021 12:36-0500 Systolic blood pressure 126 mm[Hg] Reese P House Work Phone: [facility] 250 DO Work Phone: 08-31-2021 14:50-0500 Body height 162.56 cm Reese P House Work Phone: [facility] [place] 250 DO Work Phone: 08-31-2021 14:50-0500 Body mass index (BMI) [Ratio] 47.72 kg/m2 Reese P House Work Phone: [facility] [place] 250 DO Work Phone: 08-31-2021 14:50-0500 Body surface area Derived from formula 2.25 m2 Reese P House Work Phone: [facility] [place] 250 DO Work Phone: 08-31-2021 14:50-0500 Body weight 126.1 kg Reese P House Work Phone: [facility] [place] 250 DO Work Phone: 08-31-2021 14:50-0500 Diastolic blood pressure 112 mm[Hg] Reese P House Work Phone: [facility] [place] 250 DO Work Phone: 08-31-2021 14:50-0500 Heart rate 84 /min Reese P House Work Phone: [facility] [place] 250 DO Work Phone: 08-31-2021 14:50-0500 Systolic blood pressure 166 mm[Hg] Reese P House Work Phone: [facility] [place] 250 DO Work Phone: 08-24-2021 12:10-0500 50 1 Reese P House Work Phone: [facility] 250 DO Work Phone: Comment on above: [id number] Encounters Encounter Date Encounter Type Care Provider Facility Start: 10-22-2024 End: 10-22-2024 ambulatory REESE P HOUSE Facility:[facility] Start: 10-15-2024 End: 10-15-2024 ambulatory REESE P HOUSE Facility:[facility] Start: 09-19-2024 End: 09-19-2024 Office outpatient visit 15 minutes Salty Gonzalez DO Work Phone: [facility] Comment on above: Malignant neoplasm o f upper-outer quadrant of left breast in female, estrogen receptor positive (CMS/HCC) (Primary Dx) Start: 09-16-2024 End: 09-16-2024 ambulatory REESE P HOUSE Facility:[facility] Start: 09-09-2024 End: 09-09-2024 ambulatory REESE P HOUSE Facility:[facility] Start: 08-07-2024 End: 08-07-2024 ambulatory REESE P HOUSE Facility:[facility] Start: 07-31-2024 End: 07-31-2024 ambulatory REESE P HOUSE Facility:[facility] Start: 07-30-2024 End: 07-30-2024 ambulatory [facility] Ambulatory Start: 07-30-2024 End: 07-30-2024 Office outpatient visit 25 minutes Luke Herrmann DO Work Phone: [facility] Comment on above: Coronary artery dise ase involving capitan grande coronary artery of cap[place] grande heart without angina pectoris; History of ST elevation myocardial infarction (STEMI); Primary hypertension; S/P right coronary artery (RCA) stent placement; Ischemic cardiomyopathy; Mixed hyperlipidemia; Type 2 diabetes mellitus with other specified complication, unspecified whether emt intermediate insulin use (Multi); Rheumatoid arthritis, involving unspecified site, unspecified whether rheumatoid factor present (Multi); BMI 40.0-44.9, adult (Multi); Never smoked tobacco; ACC/AHA stage C congestive heart failure due to ischemic cardiomyopathy Start: 07-02-2024 End: 07-02-2024 ambulatory REESE P HOUSE Facility:[facility] Start: 07-01-2024 End: 07-01-2024 ambulatory REESE P HOUSE Facility:[facility] Start: 06-10-2024 End: 06-10-2024 ambulatory REESE P HOUSE Facility:[facility] Start: 05-01-2024 End: 05-01-2024 ambulatory DO REESE P HOUSE Facility:[facility] Start: 04-29-2024 End: 04-29-2024 ambulatory DO Reese House Work Phone: [facility] Work Phone: Start: 04-29-2024 End: 04-29-2024 Patient encounter procedure DO Reese House Work Phone: [facility] Ambulatory Work Phone: Start: 04-29-2024 Registered Recurring DO Trace s House Work Phone: [facility] Work Phone: Start: 04-29-2024 ambulatory Floresita Carlos Facility:[facility] Start: 04-08-2024 End: 04-08-2024 ambulatory REESE P HOUSE Facility:[facility] Start: 03-04-2024 End: 03-04-2024 ambulatory REESE P HOUSE Facility:[facility] Start: 01-31-2024 End: 01-31-2024 ambulatory DO REESE P HOUSE Facility:[facility] Start: 10-31-2023 End: 10-31-2023 ambulatory Ant Gregory MD Facility:[facility] Start: 10-25-2023 End: 10-25-2023 ambulatory DO Reese Nixon Work Phone: [facility] Work Phone: Start: 10-25-2023 End: 10-25-2023 Registered Recurring DO Reese Nixon Work Phone: [facility] Work Phone: Start: 08-10-2023 End: 08-10-2023 Office outpatient visit 25 minutes Luke Herrmann DO Work Phone: [facility] Comment on above: Coronary artery dise ase involving capitan grande coronary artery of [place] heart without angina pectoris; History of ST elevation myocardial infarction (STEMI); Primary hypertension; Ischemic cardiomyopathy; Mixed hyperlipidemia; Type 2 diabetes mellitus with other specified complication, unspecified whether mcc insulin use ([facility]); Class 3 severe obesity due to excess calories with serious comorbidity and body mass index (BMI) of 40.0 to 44.9 in adult ([facility]); Rheumatoid arthritis, involving unspecified site, unspecified whether rheumatoid factor present ([facility]); S/P right coronary artery (RCA) stent placement Start: 07-24-2023 End: 07-24-2023 ambulatory DO Reese Nixon Work Phone: [facility] Work Phone: Start: 07-24-2023 End: 07-24-2023 Registered Recurring DO Reese Nixon Work Phone: [facility] Work Phone: Start: 06-27-[address] Reese Olivares [facility] [place] Facility: Start: 06-21-2023 Rx Renewal Reese P Hous e Work Phone: [facility] [place] 250 DO Work Phone: Start: 04-20-2023 End: 04-20-2023 ambulatory DO Reese Nixon Work Phone: [facility] Work Phone: Start: 04-20-2023 End: 04-20-2023 Registered Recurring DO Reese House [facility]: Start: 2022 Rx Renewal Reese P Hous e Work Phone: [facility] 250 DO Work Phone: Start: 12-13-2022 Rx Renewal Reese P Hous e Work Phone: [facility] [place] 250 DO Work Phone: Start: 11-12-2022 End: 11-13-[address] LUKE HERRMANN Facility: Start: 11-08-[address] Luke Herrmann Facility: Start: 11-08-2022 FUV, Provider: Luke Herrmann, Status: Pen, Time: 10:10 AM Reese P House Work Phone: [facility] [place] 250 DO Work Phone: Start: 11-08-2022 Office outpatient vi sit 25 minutes Reese P House Work Phone: [facility] [place] 250 DO Work Phone: Start: 11-07-2022 Rx Renewal Reese P Hous e Work Phone: [facility] [place] 250 DO Work Phone: Start: 10-31-2022 Rx Renewal Reese P Hous e Work Phone: [facility] [place] 250 DO Work Phone: Start: 10-13-2022 End: 10-13-2022 ambulatory DO Reese House Work Phone: [facility] Work Phone: Start: 10-13-2022 End: 10-13-2022 Registered Recurring DO Reese House Work [facility] Work Phone: Start: 09-01-2022 FUV, Provider: Luke Herrmann, Status: Pen, Time: 11:40 AM Reese P House Work Phone: [facility] 250 DO Work Phone: Start: 08-30-2022 Rx Change Reese P Hous e Work Phone: [facility] [place] 250 DO Work Phone: Start: 08-29-2022 End: 08-30-2022 ambulatory ZOE LATIF Facility:[facility] Start: 08-09-2022 Rx Renewal Reese P Hous e Work Phone: [facility] [place] 250 DO Work Phone: Start: 06-16-2022 End: 06-17-[address] DOROTEO SAMAYOA Facility:[facility] Start: 05-30-2022 End: 05-31-2022 ambulatory ZOE LATIF Facility:[facility] Start: 04-30-2022 End: 05-01-[address] ERESE NIXON Facility:[facility] Start: 03-21-2022 End: 03-22-[address] DOROTEO SAMAYOA Facility:[facility] Start: 03-01-2022 End: 03-01-2022 Admission to same day surgery center DO Reese Hussain Work Phone: [facility]CT Scan Main [place] Start: 02-02-2022 End: 02-02-2022 Registered Recurring DO Reese Nixon Work Phone: [facility] Start: 01-26-2022 End: 01-27-[address] DOROTEO SAMAYOA Facility:[facility] Start: 12-28-2021 End: 12-28-2021 Admission to same day surgery center DO Reese Nixon Work Phone: [facility]-Surgery Center Main [place] Start: 12-27-2021 End: 12-28-[address] DOROTEO SAMAYOA Facility:[facility] Start: 12-24-2021 End: 12-24-2021 Patient encounter procedure DO Reese Nixon Work Phone: [facility] Start: 12-21-2021 Rx Renewal Reese P Hous e Work Phone: [facility] [place] 250 DO Work Phone: Start: 12-14-2021 End: 12-14-2021 Patient encounter procedure DO Reese Nixon Work Phone: [facility] Start: 12-08-2021 End: 12-09-[address] DOROTEO SAMAYOA Facility: Start: 11-16-2021 End: 11-16-2021 Admission to same day surgery center DO Reese Nixon Work Phone: [facility]-Ultrasound Cntr for Breast Car Start: 11-04-2021 End: 11-04-2021 Patient encounter procedure DO Reese Nixon Work Phone: [facility]-Center for Breast Care Start: 10-28-2021 Office outpatient vi sit 25 minutes Reese P House Work Phone: [facility] [place] 250 DO Work Phone: Start: 10-11-2021 Office outpatient vi sit 5 minutes Reese P House Work Phone: [facility] [place] 250 DO Work Phone: Start: 10-04-2021 Patient encounter procedure Reese P House Work Phone: [facility] [place] [address] [place] Work Phone: Start: 09-20-2021 Office outpatient vi sit 15 minutes Reese P House Work Phone: [facility] 250 DO Work Phone: Start: 09-20-2021 Rx Renewal Reese P Hous e Work Phone: [facility] [place] 250 DO Work Phone: Start: 09-03-2021 Telephone encounter Reese P House Work Phone: [facility] [place] 250 DO Work Phone: Start: 08-31-2021 Transitional care nikkie berry srvc 7 day discharge Reese Good [employer] Work Phone: [facility] [place] 250 DO Work Phone: Procedures Date Procedure Procedure Detail Performing Clinician Start: 12-04-2023 End: 12-04-2023 Bilateral mammography DO [employer] Phone: Start: 08-09-2023 History of placement of stent for coronary artery disease S/P right coronary artery (RCA) stent placement Luke Herrmann DO Work Phone: Start: 02-21-2023 Dual energy X-ray absorptiometry DO [employer] Phone: Start: 03-01-2022 CT of chest without contrast DO [employer] Phone: Start: 02-07-2022 Positron emission tomography with computed tomography DO [employer] Phone: Start: 12-28-2021 Mammography of left breast specimen DO [employer] Phone: Start: 12-28-2021 Biopsy of breast DO Janay stewart [employer] Phone: Start: 12-28-2021 Radionuclide sentine l lymph node study DO [employer] Phone: Start: 12-27-2021 Mammography of left breast DO [employer] Phone: Start: 12-27-2021 Ultrasonography guid ed needle localization of lesion of left breast DO Reese [employer] Work Phone: Start: 11-16-2021 Mammography of left breast DO [employer] Phone: Start: 11-16-2021 Core needle biopsy o f breast using ultrasound guidance DO [employer] Phone: Start: 11-04-2021 Ultrasonography of l eft breast DO [employer] Phone: Start: 11-04-2021 Bilateral mammography D O [employer] Phone: Start: 10-04-2021 Echocardiography Trace nilsa Nixon Work Phone: History of placement of stent for coronary artery disease Status post insertion of drug eluting coronary artery stent Reese [employer] Work Phone: History of placement of stent for coronary artery disease S/P right coronary artery (RCA) stent placement Luke Nilsa Herrmann Work Phone: History of placement of stent for coronary artery disease S/P right coronary artery (RCA) stent placement Luke Herrmann DO Work Phone: Lumpectomy of breast Reese Nixon Work Phone: Operative procedure on ankle Reese Nixon Work Phone: NEGATED: Highlighted row has not occurred! Total colonoscopy Reese Nixon Work Phone: Plan of Treatment Date Care Activity Detail Author Start: 07-29-2025 End: 07-29-2025 Patient encounter procedure 07/29/2025 1:20 PM EDT Office Visit [facility] [address] [place] [id number] Luke Herrmann DO [address] [place] [address] [facility] Start: 12-04-2024 Screening for malignant neoplasm of breast Mammogram [facility] Start: 07-30-2024 End: 07-30-2025 Alanine aminotransferase [Enzymatic activity/volume] in Serum or Plasma by With P-5'-P Alanine Aminotransferase Lab Routine Mixed hyperlipidemia Expected: 07/30/2024 (Approximate), Expires: 07/30/2025 [facility] Service Area Work Phone: Comment on above: Expected: 07/30/2024 (Approximate), Expi res: 07/30/2025 Start: 07-30-2024 End: 07-30-2025 Aspartate aminotransferase [Enzymatic activity/volume] in Serum or Plasma by With P-5'-P Aspartate Aminotransferase Lab Routine Mixed hyperlipidemia Expected: 07/30/2024 (Approximate), Expires: 07/30/2025 [facility] Work Phone: Comment on above: Expected: 07/30/2024 (Approximate), Expi res: 07/30/2025 Start: 07-30-2024 End: 07-30-2025 Basic metabolic 2000 panel - Serum or Plasma Basic Metabolic Panel Lab Routine Coronary artery disease involving cap[place] grande coronary artery of [place] heart without angina pectoris Primary hypertension Expected: 07/30/2024 (Approximate), Expires: 07/30/2025 [facility] Work Phone: Comment on above: Expected: 07/30/2024 (Approximate), Expi res: 07/30/2025 Start: 07-30-2024 End: 07-30-2025 Lipid 1996 panel - Serum or Plasma Lipid Panel Lab Routine Mixed hyperlipidemia Expected: 07/30/2024 (Approximate), Expires: 07/30/2025 [facility] Work Phone: Comment on above: Expected: 07/30/2024 (Approximate), Expi res: 07/30/2025 Start: 07-30-2024 End: 07-30-2025 Natriuretic peptide B [Mass/volume] in Blood B-Type Natriuretic Peptide Lab Routine Coronary artery disease involving capitan grande coronary artery of [place] heart without angina pectoris ACC/AHA stage C congestive heart failure due to ischemic cardiomyopathy Expected: 07/30/2024 (Approximate), Expires: 07/30/2025 [facility] Work Phone: Comment on above: Expected: 07/30/2024 (Approximate), Expi res: 07/30/2025 Start: 06-16-2024 COVID-19 Vaccine ( season) COVID-19 Vaccine ( season) [facility] Start: 06-16-2024 Influenza vaccination Influenza Vaccine (#1) [facility] Start: 08-10-2023 End: 08-10-2024 Alanine aminotransferase [Enzymatic activity/volume] in Serum or Plasma by With P-5'-P Alanine Aminotransferase Lab Routine Mixed hyperlipidemia Expected: 08/10/2023 (Approximate), Expires: 08/10/2024 [facility] Service Area Work Phone: Comment on above: Expected: 08/10/2023 (Approximate), Expi res: 08/10/2024 Start: 08-10-2023 End: 08-10-2024 Aspartate aminotransferase [Enzymatic activity/volume] in Serum or Plasma by With P-5'-P Aspartate Aminotransferase Lab Routine Mixed hyperlipidemia Expected: 08/10/2023 (Approximate), Expires: 08/10/2024 [facility] Work Phone: Comment on above: Expected: 08/10/2023 (Approximate), Expi res: 08/10/2024 Start: 08-10-2023 End: 08-10-2024 C reactive protein [Mass/volume] in Serum or Plasma by High sensitivity method High sensitivity CRP Lab Routine Coronary artery disease involving capitan grande coronary artery of [place] heart without angina pectoris Ischemic cardiomyopathy Expected: 08/10/2023 (Approximate), Expires: 08/10/2024 [facility] Work Phone: Comment on above: Expected: 08/10/2023 (Approximate), Expi res: 08/10/2024 Start: 08-10-2023 End: 08-10-2024 Lipid 1996 panel - Serum or Plasma Lipid Panel Lab Routine Mixed hyperlipidemia Expected: 08/10/2023 (Approximate), Expires: 08/10/2024 [facility] Work Phone: Comment on above: Expected: 08/10/2023 (Approximate), Expi res: 08/10/2024 Start: 06-27-2023 FUV, Provider: Luke Herrmann, Status: Sha, Time: 11:20 AM FUV, Provider: Luke Herrmann, Status: Pen, Time: 11:20 AM [facility] 250 DO Work Phone: Start: 06-16-2023 Influenza vaccination Influenza Vaccine (#1) [facility] Start: 11-08-2022 FUV, Provider: Luke Herrmann, Status: Pen, Time: 10:10 AM FUV, Provider: Luke Herrmann, Status: Pen, Time: 10:10 AM [facility] 250 DO Work Phone: Start: 09-01-2022 FUV, Provider: Luke Herrmann, Status: Pen, Time: 11:40 AM FUV, Provider: Luke Herrmann, Status: Pen, Time: 11:40 AM -[facility] 250 DO Work Phone: Start: 05-10-2022 FUV, Provider: Luke Herrmann, Status: Pen, Time: 1:50 PM FUV, Provider: Luke Herrmann, Status: Pen, Time: 1:50 PM -[facility] 250 DO Work Phone: Start: 12-07-2021 FUV, Provider: Luke Herrmann, Status: Pen, Time: 2:00 PM FUV, Provider: Luke Herrmann, Status: Pen, Time: 2:00 PM [facility] [place] 250 DO Work Phone: Start: 10-27-2021 FUV, Provider: Luke Herrmann, Status: Pen, Time: 11:30 AM FUV, Provider: Luke Herrmann, Status: Pen, Time: 11:30 AM [facility] 250 DO Work Phone: Start: 10-11-2021 NURSEVST, Provider: ROSA STEPHENSON DAY TRADER 1,[id number], Status: Pen, Time: 1:00 PM NURSEVST, Provider: ROSA STEPHENSON DAY TRADER 1,[id number], Status: Pen, Time: 1:00 PM [facility] [address] [place] Work Phone: Start: 10-04-2021 ECHO, Provider: [place] [facility] 01,[id number], Status: Pen, Time: 1:30 PM ECHO, Provider: [place] [facility] 01,[id number], Status: Pen, Time: 1:30 PM [facility] 250 DO Work Phone: Start: 10-04-2021 FUV, Provider: Salima Penaloza, Status: Pen, Time: 12:30 PM FUV, Provider: Salima Penaloza, Status: Pen, Time: 12:30 PM [facility] [place] 250 DO Work Phone: Start: 09-20-2021 FUV, Provider: Salima Penaloza, Status: Pen, Time: 12:30 PM FUV, Provider: Salima Penaloza, Status: Pen, Time: 12:30 PM [facility] 250 DO Work Phone: Start: 2016 RSV patients and/or patients aged 60+ years (1 - 1-dose 60+ series) RSV patients and/or patients aged 60+ years (1 - 1-dose 60+ series) [facility] Start: 2006 Zoster Vaccines (1 of 2) Zoster Vaccines (1 of 2) [facility] Start: 1978 DTaP/Tdap/Td Vaccines (1 - Tdap) DTaP/Tdap/Td Vaccines (1 - Tdap) [facility] Start: 12-23-1975 Urine screening for protein Diabetes: Urine Protein Screening [facility] Start: 1974 Hepatitis C screening Hepatitis C Screening [facility] Start: 1966 Diabetic foot examination Diabetes: Foot Exam [facility] Start: 1966 Glaucoma screening Diabetes: Retinopathy Screening [facility] Start: 1962 Pneumococcal Vaccine: 65+ Years (1 - PCV) Pneumococcal Vaccine: 65+ Years (1 - PCV) [facility] Start: 1962 Pneumococcal Vaccine: 65+ Years (1 of 2 - PCV) Pneumococcal Vaccine: 65+ Years (1 of 2 - PCV) [facility] Start: 06-24-1956 COVID-19 Vaccine (#1) COVID-19 Vaccine (#1) [facility] Start: 1955 Hemoglobin A1c measurement Diabetes: Hemoglobin A1C [facility] Start: 1955 Lipid panel Lipid Panel [facility] Start: 1955 Medicare Annual Wellness Visit Medicare Annual Wellness Visit (AWV) [facility] Start: 1955 Screening for malignant neoplasm of colon [facility] Start: 1955 Screening for osteoporosis Bone Density Scan [facility] Start: 1955 Thyroid stimulating hormone measurement TSH Level [facility] Computed tomography for radiotherapy planning [facility] MG Breast - bilatera l Diagnostic [facility] Patient referral [facility] Work Phone: [facility] Payers Date Payer Category Payer Private Health Insurance [facility] [id number] 2022 Self-pay [id number] 2022 Unknown [id number] 2021 Unknown 2021 Unknown [id number] 2014 Medicare [id number] 1959 Medicare [id number] 1959 Unknown [id number] 1959 Unknown [id number] 1956 Unknown [id number] 2..840.1.689230.3.579. 2.593 1956 Unknown [id number] 2.16.840.1.123854.3.579. 2.593 1956 Unknown [id number] 2.16.840.1.988383.3.579. 2.593 1956 Unknown [id number] 2.16.840.1.764215.3.579. 2.593 1956 Unknown [id number] 2.16.840.1.026703.3.579. 2.593 1956 Unknown [id number] 2.16.840.1.693120.3.579. 2.593 1956 Unknown [id number] 2.16.840.1.659656.3.579. 2.593 1956 Unknown [id number] 2.16.840.1.153759.3.579. 2.593 1956 Unknown [id number] 2.16.840.1.145823.3.579. 2.593 1956 Unknown [id number] 2.16.840.1.246390.3.579. 2.593 1956 Unknown [id number] 2.16.840.1.965896.3.579. 2.593 1956 Unknown [id number] 2.16.840.1.288131.3.579. 2.593 1956 Unknown [id number] 2.16.840.1.315904.3.579. 2.356 1956 Unknown [id number] 2.16.840.1.684752.3.579. 2.356 1956 Unknown [id number] 2.16.840.1.311563.3.579. 2.1244 1956 Unknown [id number] 2.16.840.1.014975.3.579. 2.718 1956 Unknown [id number] 2.16.840.1.896705.3.579. 2.718 1956 Unknown [id number] 2.16.840.1.264184.3.579. 2.718 1956 Unknown [id number] 2.16.840.1.696950.3.579. 2.718 Unknown [id number] 2.16.840.1.692137.3.579. 2.531 Social History Date Type Detail Facility Start: 08-10-2023 End: 09-19-2024 No alcohol use No alcohol use -[facility] [place] [address] DO Work Phone: Comment on above: 2 cups daily, diet p op occasional; 1/2 cup daily; Start: 01-13-2022 End: 07-22-2023 Tobacco smoking status NHIS Never smoked tobacco (finding) [facility] Start: 1955 Sex Assigned At Female F [facility] Start: 07-22-2023 End: 08-10-2023 Tobacco use and exposure Smokeless tobacco non-user [facility] Work Phone: Start: 08-10-2023 End: 09-19-2024 Alcohol intake Lifetime non-drinker (finding) [facility] Work Phone: Start: 08-10-2023 End: 09-19-2024 Tobacco use panel [facility] Work Phone: Start: 1955 [facility] Start: 07-31-2023 End: 07-30-2024 Exposure to SARS-CoV-2 (event) Not sure [facility] Start: 07-22-2023 Alcohol Comment caffeine 1-2 cups/da y [facility] Medical Equipment Procedure Code Equipment Code Equipment Origin al Text Equipment Identifier Dates Biopsy, breast, with lumpectomy Imaging lesion localization marker, implantable [id number] FDA Start: 12-28-2021 Drug-eluting coronary artery stent, hxz-[id number]-ul lymer-coated ()[id number] FDA Start: 08-23-2021 Drug-eluting coronary artery stent, ypt-wpseptylcmxez-ss lymer-coated ()[id number] FDA Start: 08-23-2021 Start: 05-17-2023 Goals Date Patient Goal Desired Activity /State Clinical Notes 01-13-2022 to 09-19-2024 Salty Gonzalez, DO - 09/19/2024 4:00 PM Sandrine Herrmann, DO - 07/30/2024 2:10 PM EDTPatient InstructionsLuke Herrmann, DO - 08/10/2023 10:00 AM EDTPatient Instructions Note Date & Type Note Facility 09-19-2024 History of Present illness Narrative Images from the original note were not included. Chucky Dunlap 1955 Chucky Dunlap is a 68 y.o. female presents with chief complaint of No chief complaint on file. HPI: HPI Chucky is 2 1/2 years post left lumpectomy. Her mamm's are due in November SUBJECTIVE: MEDICATIONS: ALLERGIES Current Outpatient Medications Medication Instructions Accu-Chek Ava Plus test strip aspirin 81 mg, Oral, Daily RT atorvastatin (LIPITOR) 40 mg, Oral, Daily RT carvedilol (COREG) 12.5 mg, Oral, 2 times daily clopidogrel (PLAVIX) 75 mg, Oral, Daily Entresto 49-51 MG tablet 1 tablet, Oral, 2 times daily insulin aspart protamine-insulin aspart (NovoLOG Mix 70-30) (70-30) 100 UNIT/ML injection Subcutaneous, 2 times daily before meals letrozole (FEMARA) 2.5 mg, Oral, Daily levothyroxine (SYNTHROID, LEVOXYL) 112 mcg, Oral, Daily RT nystatin (Mycostatin) 271826 UNIT/GM powder APPLY 1 APPLICATION TWICE DAILY spironolactone (ALDACTONE) 25 mg, Oral, Daily Tresiba FlexTouch 100 UNIT/ML injection INJECT 60 UNITS UNDER THE SKIN ONCE DAILY' valACYclovir (Valtrex) 1 g tablet 1 tablet, Oral, 3 times daily No Known Allergies PAST MEDICAL HISTORY: SOCIAL HISTORY SURGICAL HISTORY: Past Medical History: Diagnosis Date Arthritis DM (diabetes mellitus) (CMS/HCC) Genetic testing Heart murmur History of breast surgery left HTN (hypertension) (CMS/HCC) Myocardial infarction (CMS/HCC) 08/2021 Pneumonia Pulmonary nodule Thyroid nodule (CMS/HCC) Social History Tobacco Use Smoking status: Never Smokeless tobacco: Never Substance Use Topics Alcohol use: Never Comment: caffeine 1-2 cups/day Drug use: Never Past Surgical History: Procedure Laterality Date ANKLE FRACTURE SURGERY 2005 ORIF AORTIC STENT 08/2021 X 2 BI US GUIDED BREAST LOCALIZATION AND BIOPSY LEFT Left 11/16/2021 BI US GUIDED BREAST LOCALIZATION AND BIOPSY LEFT [facility] BREAST LUMPECTOMY Left 12/28/2021 KNEE SURGERY knee arthroscopy, 2006, 2005 FAMILY HISTORY Family History Problem Relation Name Age of Onset Hypertension Mother Heart disease Mother Hypertension Sibling Stroke Sibling REVIEW OF SYMPTOMS: Review of Systems Constitutional: Negative for diaphoresis and unexpected weight change. HENT: Negative for hearing loss, tinnitus and voice change. Respiratory: Negative for shortness of breath. Cardiovascular: Negative for chest pain and palpitations. Musculoskeletal: Positive for arthralgias. Neurological: Negative for dizziness, seizures and headaches. All other systems reviewed and are negative. Hematological: Negative for adenopathy. Does not bruise/bleed easily. OBJECTIVE: Visit Vitals Smoking Status Never Physical Exam Exam conducted with a content analyst present. HENT: Head: Normocephalic. Cardiovascular: Rate and Rhythm: Normal rate and regular rhythm. Pulmonary: Effort: Pulmonary effort is normal. Breath sounds: Normal breath sounds. Chest: Comments: Bilateral supraclavicular, infraclavicular and axillary lymph nodes were normal. Each breast was examined in the sitting and supine position. There was no evidence of abnormal masses, skin dimpling or nipple discharge in the right breast. The left breast has no XRT changes, the left axillary and breast scars are noted. . Abdominal: General: Abdomen is flat. Bowel sounds are normal. Palpations: Abdomen is soft. Skin: General: Skin is warm and dry. Neurological: Mental Status: She is alert. ASSESSMENT AND PLAN: Assessment/Plan Problem List Items Addressed This Visit Malignant neoplasm of upper-outer quadrant of left female breast (CMS/HCC) - Primary Chucky is doing well, her mamm's are due in November. I'll see her in 6 months for recheck documented in this encounter [facility] 08-28-2024 Note - From: REESE NIXON DO To: [facility] Clinical Pool ([facility]); Sent: 08/28/2024 12:32:24 EST Subject: FW: Medication Management Due Date/Time: 08/29/2024 11:34:00 EST Caller Name: CYNTHIA DUNLAPRonda Langley; Caller Number: H From: [facility] To: REESE NIXON DO Sent: August 28, 2024 10:34:00 AM TECHNICAL ENGINEER Subject: Medication Management Due: August 29, 2024 3:05:34 AM TECHNICAL ENGINEER On Hold Pending Signature Dispensed Drug: gabapentin (gabapentin 600 mg oral tablet), Take 1 tablet by mouth twice daily Quantity: 60 tab(s) Days Supply: 30 Refills: 0 Substitutions Allowed Notes from Pharmacy: From: Irina Payan To: [facility] Sent: 08/28/2024 13:22:21 EST Subject: FW: Medication Management Not Approved: proposed to provider gabapentin (Gabapentin 600 MG Oral Tablet) Take 1 tablet by mouth twice daily Qty: 60 tab(s) Days Supply: 30 Refills: 0 Substitutions Allowed Route To Pharmacy - [facility] Signed by Irina Payan [facility] 07-30-2024 History of Present illness Narrative Subjective Chucky Dunlap is a 68 y.o. female Chief Complaint Annual Exam 68-year-old female returns for follow-up and is doing well from a cardiovascular standpoint, she states she is having rheumatoid arthritis flare with worsening of her joint discomfort, as well as edema in the lower extremities. She states the gabapentin may be responsible for her worsening edema. She has known ASHD with prior [place] 2020 details of which are reviewed below, with normalized LV function: She had inferior [place] July 2021 with AngioJet thrombectomy and 2 stents in the proximal and distal RCA at that time initially was severe LV dysfunction that normalized thereafterwards. She has had no heart failure events, no anginal or nitrate events. Comorbidities are noted for diabetes, obesity, rheumatoid arthritis. She remains on appropriate GDMT as reviewed, she has had no recent labs performed Recommendations, obtain BNP, Chem-6, lipid panel otherwise continue current medications and follow-up in 1 year. If she is noted to have any elevated BNP consistent with heart failure we may consider loop diuretic in the future. Review of Systems Cardiovascular: Positive for leg swelling. All other systems reviewed and are negative. Vitals: 07/30/24 1433 BP: 104/70 BP Location: Left arm Patient Position: Sitting Pulse: 72 Weight: 108 kg (238 lb) Height: 1.626 m (5' 4 ) Objective Physical Exam Constitutional: Appearance: Normal appearance. HENT: Nose: Nose normal. Neck: Vascular: No carotid bruit. Cardiovascular: Rate and Rhythm: Normal rate. Pulses: Normal pulses. Heart sounds: Normal heart sounds. Pulmonary: Effort: Pulmonary effort is normal. Abdominal: General: Bowel sounds are normal. Palpations: Abdomen is soft. Musculoskeletal: General: Normal range of motion. Cervical back: Normal range of motion. Right lower le+ Edema present. Left lower le+ Edema present. Skin: General: Skin is warm and dry. Neurological: General: No focal deficit present. Mental Status: She is alert. Psychiatric: Mood and Affect: Mood normal. Behavior: Behavior normal. Thought Content: Thought content normal. Judgment: Judgment normal. Allergies Patient has no known allergies. Current Medications Current Outpatient Medications: atorvastatin (Lipitor) 40 mg tablet, Take 1 tablet (40 mg) by mouth once daily at bedtime., Disp: , Rfl: carvedilol (Coreg) 12.5 mg tablet, Take 1 tablet (12.5 mg) by mouth 2 times a day., Disp: 180 tablet, Rfl: 3 clopidogrel (Plavix) 75 mg tablet, Take 1 tablet (75 mg) by mouth once daily., Disp: 30 tablet, Rfl: 11 gabapentin (Neurontin) 300 mg capsule, Take 1 capsule (300 mg) by mouth 2 times a day., Disp: , Rfl: insulin aspart (NovoLOG) 100 [...] by mouth 2 times a day., Disp: 180 tablet, Rfl: 3 spironolactone (Aldactone) 25 mg tablet, Take 1 tablet (25 mg) by mouth once daily., Disp: 90 tablet, Rfl: 3 Assessment/Plan 1. Coronary artery disease involving [place] coronary artery of [place] heart without angina pectoris Follow Up In Cardiology 2. History of ST elevation myocardial infarction (STEMI) 3. Primary hypertension Follow Up In Cardiology 4. S/P right coronary artery (RCA) stent placement 5. Ischemic cardiomyopathy Follow Up In Cardiology 6. Mixed hyperlipidemia 7. Type 2 diabetes mellitus with other specified complication, unspecified whether mcc insulin use (Multi) 8. Rheumatoid arthritis, involving unspecified site, unspecified whether rheumatoid factor present (Multi) 9. BMI 40.0-44.9, adult (Multi) 10. Never smoked tobacco Scribe Attestation By signing my name below, I, Rebecca Huerta RN , Scribe attest that this documentation has been prepared under the direction and in the presence of Luke Herrmann DO. Provider Attestation - Scribe documentation All medical record entries made by the Scribe were at my direction and personally dictated by me. I have reviewed the chart and agree that the record accurately reflects my personal performance of the history, physical exam, discussion and plan. documented in this encounter [facility] Work Phone: 07-30-2024 Instructions Rebecca Morrell RN - 07/30/2024 2:10 PM EDT Please bring all medicines, vitamins, and herbal supplements with you when you come to the office. Prescriptions will not be filled unless you are compliant with your follow up appointments or have a follow up appointment scheduled as per instruction of your physician. Refills should be requested at the time of your visit. BMI was above normal measurement. Current weight: 108 kg (238 lb) Weight change since last visit (-) denotes wt loss -10 lbs Weight loss needed to achieve BMI 25: 92.7 Lbs Weight loss needed to achieve BMI 30: 63.6 Lbs Provided instructions on dietary changes Provided instructions on exercise. documented in this encounter [facility] Work Phone: 07-03-2024 Note - From: REESE NIXON DO To: [facility] Clinical Pool ([facility]); Sent: 07/03/2024 07:37:31 EDT Subject: FW: Medication Management Due Date/Time: 07/03/2024 20:59:00 EDT Caller Name: CHUCKY DUNLAP; Caller Number: H From: [facility] [id number] To: REESE NIXON DO Sent: July 02, 2024 7:59:21 PM CDT Subject: Medication Management Due: July 03, 2024 11:01:35 AM CDT On Hold Pending Signature Dispensed Drug: gabapentin (gabapentin 300 mg oral capsule), TAKE 1 CAPSULE BY MOUTH TWICE A DAY Quantity: 60 cap(s) Days Supply: 30 Refills: 0 Substitutions Allowed Notes from Pharmacy: From: Jayde Duncan MA To: [facility]/pharmacy #[id number] Sent: 07/03/2024 08:17:10 EDT Subject: FW: Medication Management Not Approved: Refill not appropriate, proposal sent to provider gabapentin (GABAPENTIN 300 MG CAPSULE) TAKE 1 CAPSULE BY MOUTH TWICE A DAY Qty: 60 cap(s) Days Supply: 30 Refills: 0 Substitutions Allowed Route To Pharmacy - [facility]/pharmacy #[id number] Signed by Jayde Duncan MA [facility] 05-30-2024 Note - From: REESE NIXON DO To: [facility] Clinical Pool ([facility]); Sent: 05/30/2024 07:28:58 EDT Subject: FW: Medication Management Due Date/Time: 05/30/2024 18:27:00 EDT Caller Name: CHUCKY DUNLAP; Caller Number: H From: [email or web address] To: REESE NIXON DO Sent: May 29, 2024 5:27:15 PM CDT Subject: Medication Management Due: May 30, 2024 12:14:21 AM CDT On Hold Pending Signature Dispensed Drug: gabapentin (gabapentin 300 mg oral capsule), TAKE 1 CAPSULE BY MOUTH TWICE A DAY Quantity: 60 cap(s) Days Supply: 30 Refills: 0 Substitutions Allowed Notes from Pharmacy: From: Irina Payan To: [id number] Sent: 05/30/2024 11:50:01 EDT Subject: FW: Medication Management Not Approved: proposed to provider gabapentin (GABAPENTIN 300 MG CAPSULE) TAKE 1 CAPSULE BY MOUTH TWICE A DAY Qty: 60 cap(s) Days Supply: 30 Refills: 0 Substitutions Allowed Route To Pharmacy - [id number] Signed by Irina Payan [facility] 08-10-2023 History of Present illness Narrative Subjective [...] No diagnosis found. documented in this encounter [facility] Work Phone: 08-10-2023 Instructions Ajith [...] of your visit. documented in this encounter [facility] Work Phone: 07-25-2023 Progress note Note Date/Time July 24, 2023 11:51am [facility] [place] [address] Hem/Onc Follow Up Note - OP Signed Patient: Chucky Dunlap MR#: [id number] : 1955 Acct:[id number] Age/Sex: 67 / F Type: REG RCR [...] to Dr. Latif of pulmonary medicine at [facility] [place]. Her most recent follow-up with him after [...] scan was performed February 12, 2021 at [facility] revealing baseline osteopenia/decreased bone density. This [...] the left lung base. Dr. Latif at [facility] referred her to Dr. Patel of CT [...] was performed 11/24/2021 revealing invasive lobular carcinoma, Hampton histologic grade 2 (3+2+1 equal 6). Lobular [...] PET/CT. Pathology invasive lobular carcinoma, ER 95%, CT 0%, HER-2 nonamplified by FISH. 2. History [...] Negative for environmental allergies and food allergies. [facility] - Medical History Medical History: Medical History [...] PET/CT. Pathology invasive lobular carcinoma, ER 95%, CT 0%, HER-2 nonamplified by FISH. Oncotype DX [...] these nodules. We are requesting her outside [place] CT for our records. 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 Dictated By: Lizzie Galeas APRN DD/ [id number] Signed By: <Electronically signed by DAY Galeas> 07/25/23 1423 [facility] Work Phone: 1(701) 992-952607-06-2023 Progress note Author Lizzie Galeas [facility] April 20, 2023 1:09pm Note Date/Time April 20, 2023 12:27 pm [facility] [place] [address] Hem/Onc Follow Up Note - OP Signed Patient: Chucky Dunlap MR#: [id number] : 1955 Acct:[id number] Age/Sex: 67 / F Type: REG RCR [...] to Dr. Latif of pulmonary medicine at [place] [place]. Her most recent follow-up with him after [...] scan was performed February 12, 2021 at [facility] revealing baseline osteopenia/decreased bone density. This [...] the left lung base. Dr. Latif at [place] [place] referred her to Dr. Patel of CT [...] was performed 11/24/2021 revealing invasive lobular carcinoma, [place] histologic grade 2 (3+2+1 equal 6). 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 Estrogen receptor +95%, progesterone receptor -0%, HER-2/ortiz was equivocal by IHC but negative by FISH. She was referred to Dr. Gonzalez for left breast lumpectomy with sentinel lymphnode biopsy. This revealed invasive lobular carcinoma, Hampton histologic grade 2, size 2.4 cm, associated [...] PET/CT. Pathology invasive lobular carcinoma, ER 95%, CT 0%, HER-2 nonamplified by FISH. 2. History [...] Negative for environmental allergies and food allergies. [facility] - Medical History Medical History: Medical History [...] PET/CT. Pathology invasive lobular carcinoma, ER 95%, CT 0%, HER-2 nonamplified by FISH. Oncotype DX [...] these nodules. We are requesting her outside [place] [facility] for our records. 04/20/2023: Chucky is [...] are typically ordered by surgery - Dr. Gonazlez. - follow up in person with exam; [...] continue to follow with serial imaging at [facility]. Last CT scan at [facility] - August2022. (3) ST elevation (STEMI) [...] for coordination of care (as documented) and [id number] counseling of patient and/or family. Dictated By: Lizzie Galeas APRN DD/ 1226 Signed By: <Electronically signed by DAY Galeas> 04/20/23 1309 [facility] Work Phone: 1(198) 330-486912-29-2022 Progress note Author Floresita Gonzalez [facility] October 13, 2022 9:14am Note Date/Time October 13, 2022 8:45am [facility] [place] [address] Hem/Onc Follow Up Note - OP Signed Patient: Chucky Dunlap MR#: [id number] : 1955 Acct:[id number] Age/Sex: 66 / F Type: REG RCR Copies to: DO Salty James, DO Zoe Latif, DO Doroteo Samayoa MD~ Subjective Date/Time of Service: Date of Service: 10/13/2022 Time of Service: 08:45 Chief Complaint: Patient is here today for a 6 month follow up visit for breast cancer HPI: 10/13/2022: W transferred her care from Dr. Patel to Dr. Latif of pulmonary medicine at [place] [place]. Her most recent follow-up with him after [...] scan was performed February 12, 2021 at [facility] revealing baseline osteopenia/decreased bone density. This [...] the left lung base. Dr. Latif at [place] [place] referred her to Dr. Patel of CT [...] was performed 11/24/2021 revealing invasive lobular carcinoma, [place] histologic grade 2 (3+2+1 equal 6). Lobular [...] PET/CT. Pathology invasive lobular carcinoma, ER 95%, CT 0%, HER-2 nonamplified by FISH. 2. History [...] review - Impressions Outside CT imaging from [place] [place] is being requested for her records. Followed by Dr. Latif. Assessment and Plan - TNM Staging Staging: T2 N0 MX (2.4 cm, 4 lymph nodes negative) left breast cancer found incidentally on PET/CT. Pathology invasive lobular carcinoma, ER 95%, CT 0%, HER-2 nonamplified by FISH. Oncotype DX [...] these nodules. We are requesting her outside [facility] for our records. Moderate complexity visit [...] continue to follow with serial imaging at [facility]. (3) ST elevation (STEMI) myocardial infarction [...] for coordination of care (as documented) and makf-[id number] counseling of patient and/or family. Dictated By: Floresita Gonzalez MD DD/ 0845 Signed By: <Electronically signed by MD Floresita Gonzalez> 10/13/22 0914 [facility] Work Phone: 1(377) 771-731706-20-2022 Progress note Author Della Louis [facility] April 04, 2022 3:32pm Note Date/Time April 04, 2022 11:[address] [facility] [place] [address] Rad Onc Follow Up Note - OP Signed Patient: Chucky uDnlap MR#: [id number] : 1955 Acct:[id number] Age/Sex: 66 / F Type: REG RCR [...] was LCIS with associated microcalcifications. ER positive CT negative HER-2 negative by FISH. December 28, [...] signed by Della Louis MD> 04/04/22 1532 [facility] Work Phone: 1(626) 923-589106-20-2022 Progress note Author Lizzie Galeas [facility] April 04, 2022 12:49pm Note Date/Time April 04, 2022 11:4 8am [facility] at [address] [address] Hem/Onc Follow Up Note - OP Signed Patient: Chucky Dunlap MR#: [id number] : 1955 Acct:[id number] Age/Sex: 66 / F Type: REG RCR Copies to: Reese Nixon DO Salty Gonzalez, ~ Subjective Date/Time of Service: Date of [...] scan was performed February 12, 2021 at [facility] revealing baseline osteopenia/decreased bone density. This [...] the left lung base. Dr. Latif at [place] referred her to Dr. Patel of CT [...] was performed 11/24/2021 revealing invasive lobular carcinoma, [place] histologic grade 2 (3+2+1 equal 6). 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 Estrogen receptor +95%, progesterone receptor -0%, HER-2/ortiz was equivocal by IHC but negative by FISH. She was referred to Dr. Gonzalez for left breast lumpectomy with sentinel lymphnode biopsy. This revealed invasive lobular carcinoma, [place] histologic grade 2, size 2.4 cm, associated [...] PET/CT. Pathology invasive lobular carcinoma, ER 95%, CT 0%, HER-2 nonamplified by FISH. 2. History [...] Negative for environmental allergies and food allergies. [facility] - Medical History Medical History: Medical History [...] Results - Impressions Patient: Chucky Dunlap MR#: [id number] : 1955 Acct:[id number] Age/Sex: 66 / F ADM Date: 2 Loc: XT Room: Type: REG RCR Attending Dr: Floresita Gonzalez MD Ordering [...] PET/CT. Pathology invasive lobular carcinoma, ER 95%, CT 0%, HER-2 nonamplified by FISH. Oncotype DX [...] for coordination of care (as documented) and ogsw-rf-ryex counseling of patient and/or family. Dictated By: Lizzie Galeas APRN DD/ 1148 Signed By: <Electronically signed by DAY Galeas> 04/04/22 1249 [facility] Work Phone: 1(165) 755-570204-21-2022 Progress note Author Floresita Gonzalez [facility] February 03, 2022 12:11pm Note Date/Time February 02, 2022 1:[address] [place] [address] [place] [address] Hem/Onc Follow Up Note - OP Signed Patient: Chucky Dunlap MR#: [id number] : 1955 Acct:[id number] Age/Sex: 66 / F Type: REG RCR Copies to: MD Reese Alvarado Vaiden, DO Salty Gonzalez, DO Della Louis MD~ [...] scan was performed February 12, 2021 at [facility] revealing baseline osteopenia/decreased bone density. This [...] the left lung base. Dr. Latif at [place] referred her to Dr. Patel of CT [...] was performed 11/24/2021 revealing invasive lobular carcinoma, Hampton histologic grade 2 (3+2+1 equal 6). Lobular [...] PET/CT. Pathology invasive lobular carcinoma, ER 95%, CT 0%, HER-2 nonamplified by FISH. 2. History [...] Negative for environmental allergies and food allergies. [facility] - History Attestation statement: The following information [...] M.D.09/29/2021 11:44 AM 02/12/2021 DEXA scan at [facility]: AP spine T score -1.4, osteopenia Left femoral neck T score -1.3, osteopenia Right femoral neck T score -1.1, osteopenia Assessment and Plan - TNM Staging Staging: T2 N0 MX (2.4 cm, 4 lymph nodes negative) left breast cancer found incidentally on PET/CT. Pathology invasive lobular carcinoma, ER 95%, CT 0%, HER-2 nonamplified by FISH. Oncotype DX [...] for coordination of care (as documented) and uong-pw-fuii counseling of patient and/or family. Dictated By: Floresita Gonzalez MD DD/ 1353 Signed By: <Electronically signed by MD Floresita Gonzalez> 02/03/22 1211 [facility] Work Phone: 1(183) 269-197603-31-2022 Consult note Author Floresita Gonzalez [facility] January 13, 2022 3:36pm Note Date/Time January 13, 2022 8:3 2am [facility] [place] [address] Hem/Onc Consult Note - OP Signed Patient: Chucky Dunlap MR#: [id number] : 1955 Acct:[id number] Age/Sex: 66 / F Type: REG RCR [...] node negative invasive lobular carcinoma. ER 95%, CT 0, HER-2/ortiz 2+ by IHC (indeterminate) but [...] the left lung base. Dr. Latif at [place] referred her to Dr. Patel of CT [...] was performed 11/24/2021 revealing invasive lobular carcinoma, Hampton histologic grade 2 (3+2+1 equal 6). Lobular [...] and to determine further plan of therapy. [facility] - History Attestation statement: The following information [...] PET/CT. Pathology invasive lobular carcinoma, ER 95%, CT 0%, HER-2 nonamplified by FISH. 2. History [...] PET/CT. Pathology invasive lobular carcinoma, ER 95%, CT 0%, HER-2 nonamplified by FISH. (1) Malignant [...] for coordination of care (as documented) and bghg-rj-bwii counseling of patient and/or family. Dictated By: Floresita Gonzalez MD DD/ 0832 Signed By: <Electronically signed by MD Floresita Gonzalez> 01/13/22 1536 [facility] Work Phone: 1(665) 819-539203-31-2022 Consult note [facility] January 13, 2022 10:04am Note Date/Time January 12, 2022 3:4 7pm [facility] [place] [address] Rad Onc Consult Note - OP Signed Patient: Chucky Dunlap MR#: [id number] : 1955 Acct:[id number] Age/Sex: 66 / F Type: REG RCR [...] was LCIS with associated microcalcifications. ER positive CT negative HER-2 negative by FISH. December 28, [...] Oncotype DX as well as antihormonal therapy. [facility] - Medical History Medical History: Medical History [...] signed by Della Louis MD> 01/13/22 1004 [facility] Work Phone: Chief complaint Narrative [...] use either lower dose ARB or HAYLEE -[facility] [address] DO Work Phone: Chief complaint Narrative [...] use either lower dose ARB or HAYLEE [facility] [address] Work Phone: Chief complaint Narrative - Reported* [...] use either lower dose ARB or HAYLEE [facility] Work Phone: Evaluation noteNo assessment information available [facility] Work Phone: Evaluation note* Diagnosis Onset Date Resolution Status Breast cancer, left breast a cute ST elevation (STEMI) myocardial infarction acute Abnormal positron emission t omography (PET) scan of head chronic [id number] chronic Pulmonary nodules/lesions, multiple chronic [facility] Work Phone: Evaluation note* Diagnosis Onset Date Resolution Status Breast cancer, left breast a cute Abnormal positron emission t omography (PET) scan of head chronic [id number] chronic Osteopenia chronic Pulmonary nodules/lesions, multiple chronic ST elevation (STEMI) myocardial infarction chronic Use of aromatase inhibitors chronic [facility] Work Phone: Evaluation note* Diagnosis Onset Date Resolution Status Breast cancer, left breast a cute Abnormal positron emission t omography (PET) scan of head chronic [id number] chronic Osteopenia chronic Pulmonary nodules/lesions, multiple chronic Rheumatoid arthritis chronic Skin candidiasis chronic ST elevation (STEMI) myocardial infarction chronic Use of aromatase inhibitors chronic [facility] Work Phone: Evaluation note* Diagnosis Coronary artery disease involving capitan grande coronary artery of capitan grande heart without angina pectoris History of ST elevation myocardial infarction (STEMI) Primary hypertension Unspecified essential hypertension Ischemic cardiomyopathy Other specified forms of chronic ischemic heart disease Mixed hyperlipidemia Type 2 diabetes mellitus with other specified complication, unspecified whether emt intermediate insulin use ([facility]) Class 3 severe obesity due to excess calories with serious comorbidity and body mass index (BMI) of 40.0 to 44.9 in adult ([facility]) Rheumatoid arthritis, involving unspecified site, unspecified whether rheumatoid factor present ([facility]) S/P right coronary artery (RCA) stent placement documented in this encounter [facility] Work Phone: Evaluation note* Diagnosis Onset Date Resolution Status Breast cancer, left breast a cute Abnormal positron emission t omography (PET) scan of head chronic [id number] chronic Osteopenia chronic Pulmonary nodules/lesions, multiple chronic Rheumatoid arthritis chronic ST elevation (STEMI) myocardial infarction chronic Use of aromatase inhibitors chronic Skin candidiasis resolved [facility] Work Phone: Evaluation note* Diagnosis Coronary artery disease involving cap[place] grande coronary artery of [place] heart without angina pectoris History of ST elevation myocardial infarction (STEMI) Primary hypertension Unspecified essential hypertension S/P right coronary artery (RCA) stent placement Ischemic cardiomyopathy Other specified forms of chronic ischemic heart disease Mixed hyperlipidemia Type 2 diabetes mellitus with other specified complication, unspecified whether emt intermediate insulin use (Multi) Rheumatoid arthritis, involving unspecified site, unspecified whether rheumatoid factor present (Multi) BMI 40.0-44.9, adult (Multi) Never smoked tobacco ACC/AHA stage C congestive heart failure due to ischemic cardiomyopathy documented in this encounter [facility] Work Phone: Evaluation note* Diagnosis Malignant neoplasm of upper-outer quadrant of left breast in female, estrogen receptor positive (CMS/HCC)- Primary [facility]* The patient presents [...] denies medication side effects. Due For: electrolytes. -[facility] [address] Work Phone: Hospital Discharge instructionsAmbulatory Orders* Obtain Medical Records From: Time Frame: 1 Day, Location: Determined By Patient * Place on Tumor Board Time Frame: 1 Week, Location: Determined By Patient [facility] Work Phone: Progress note Author Floresita Gonzalez [facility] October 13, 2022 9:14am Note Date/Time October 13, 2022 8:45am [facility] [place] [id number] Hem/Onc Follow Up Note - OP Signed Patient: Chucky Dunlap MR#: [id number] : 1955 Acct:[id number] Age/Sex: 66 / F Type: REG RCR [...] to Dr. Latif of pulmonary medicine at [place]. Her most recent follow-up with him after [...] scan was performed February 12, 2021 at [facility] revealing baseline osteopenia/decreased bone density. This [...] the left lung base. Dr. Latif at [place] referred her to Dr. Patel of CT [...] was performed 11/24/2021 revealing invasive lobular carcinoma, Hampton histologic grade 2 (3+2+1 equal 6). Lobular [...] PET/CT. Pathology invasive lobular carcinoma, ER 95%, CT 0%, HER-2 nonamplified by FISH. 2. History [...] Negative for environmental allergies and food allergies. [facility] - History Attestation statement: The following information [...] review - Impressions Outside CT imaging from [place] [place] is being requested for her records. Followed by Dr. Latif. Assessment and Plan - TNM Staging Staging: T2 N0 MX (2.4 cm, 4 lymph nodes negative) left breast cancer found incidentally on PET/CT. Pathology invasive lobular carcinoma, ER 95%, CT 0%, HER-2 nonamplified by FISH. Oncotype DX [...] these nodules. We are requesting her outside [facility] for our records. Moderate complexity visit [...] continue to follow with serial imaging at [facility]. (3) ST elevation (STEMI) myocardial infarction [...] for coordination of care (as documented) and sqhg-jh-jaaw counseling of patient and/or family. Dictated By: Floresita Gonzalez MD DD/ 0845 Signed By: <Electronically signed by MD Floresita Gonzalez> 10/13/22 0914 [facility] Work Phone: Reason for referral (narrative)* Consultation (Routine) - Authorized Specialty Diagnoses / Procedures Referred By Contac t Referred To Contact Cardiology Diagnoses Coronary artery disease involving capitan grande coronary artery of cap[place] grande heart without angina pectoris Primary hypertension Ischemic cardiomyopathy Procedures Follow Up In Cardiology Luke Herrmann DO [address] [facility] 2, [address] [address] Luke Herrmann, [address] [facility], [address] [place] [address] Referral ID Status Reason Start Date Expiration Date V isits Requested Visits Authorized [id number] Authorized 08/10/2023 08/09/2024 1 1 [facility] Work Phone: Reason for referral (narrative)* Consultation (Routine) - Authorized Specialty Diagnoses / Procedures Referred By Contac t Referred To Contact Cardiology Diagnoses Coronary artery disease involving capitan grande coronary artery of cap[place] grande heart without angina pectoris Procedures Follow Up In Cardiology Luke Herrmann DO [address] [facility] 2, [place] [id number] Luke Herrmann, [address] [facility] [address], [address] [address] Referral ID Status Reason Start Date Expiration Date V isits Requested Visits Authorized [id number] Authorized 07/30/2024 07/30/2025 1 1 [facility] Work Phone: Family History No [...] * 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 Summary Purpose [...] positron emission tomography (PET) scan of head [id number] Pulmonary nodules/lesions, multiple Chief Complaint r91.8 Chief Complaint Breast Cancer Reason for Visit Breast cancer, left breast Abnormal positron emission tomography (PET) scan of head [id number] Osteopenia Pulmonary nodules/lesions, multiple ST elevation (STEMI) myocardial infarction Use of aromatase inhibitors Chief Complaint Breast Cancer Reason for Visit Breast cancer, left breast Abnormal positron emission tomography (PET) scan of head [id number] Osteopenia Pulmonary nodules/lesions, multiple Rheumatoid arthritis Skin candidiasis ST elevation (STEMI) myocardial infarction Use of aromatase inhibitors Chief Complaint Breast Cancer Reason for Visit Breast cancer, left breast Abnormal positron emission tomography (PET) scan of head [id number] Osteopenia Pulmonary nodules/lesions, multiple Rheumatoid arthritis ST elevation (STEMI) myocardial infarction Use of aromatase inhibitors Skin candidiasis Additional Source Comments INFORMATION SOURCE (unrecogn ized section and content) DATE CREATED AUTHOR 10/06/2021 [facility] DATE CREATED AUTHOR AUTHOR'S ORGANIZ ATION 10/29/2021 [employer] DATE CREATED AUTHOR AUTHOR'S ORGANIZ ATION 11/14/2022 [facility] DATE CREATED AUTHOR AUTHOR'S ORGANIZ ATION 06/28/2023 [facility] DATE CREATED AUTHOR AUTHOR'S ORGANIZ ATION 05/03/2024 [facility] DATE CREATED AUTHOR AUTHOR'S ORGANIZ ATION 10/04/2024 [facility] DATE CREATED AUTHOR AUTHOR'S ORGANIZ ATION 10/28/[address] [facility] l Care Teams (unrecognized sec tion and content) Team Status: Inactive Member Role Status Dates Reese Nixon DO Primary Care Provider Active Salty Gonzalez , Attending Provider Active Team Status: Inactive Member Role Status Dates Reese Nixon DO Primary Care Provider Active Marcin Patel MD Attending Provider Active Team Status: Active Member Role Status Dates Reese Nixon DO Primary Care Provider Active Team Status: Active Member Role Status Dates Reese Nixon DO Primary Care Provider Active Salty Gonzalez , Referring Provider Active Floresita Gonzalez MD Attending Provider Active [employer] Relationship Specialty Start Date End Date Reese Nixon [address] [place] [address] PCP - General 10/16/99 Team Status: Active [...] 2024 End: April 29, 2024 Reese Nixon Primary Care Provider Active Start: April 29, 2024 End: April 29, 2024 [employer] Relationship Specialty Start Date End Date Reese Nixon FlorentinoDO PCP - General 10/16/99 [employer] Relationship Specialty Start Date End Date Reese Nixon MD [address] [place] [address] PCP - General Family Medicine 02/27/23 Goals (unrecognized section and content) Goals may be documented in a n alternate sectionGoals may be documented in an alternate sectionGoals may be documented in an alternate sectionGoals may be documented in an alternate sectionGoals may be documented in an alternate sectionGoals may be documented in an alternate section Reason for Visit (unrecogniz ed section and content) Reason Comments Follow-up 8m Reason Comments Annual Exam Specialty Diagnoses / Procedures Referred By Contac t Referred To Contact Cardiology Diagnoses Coronary artery disease involving capitan grande coronary artery of capitan grande heart without angina pectoris Primary hypertension Ischemic cardiomyopathy Procedures Follow Up In Cardiology Luke Herrmann, DO [address] [facility], [address] [address] Luke Herrmann, DO [address] [facility], [address] [place] [address] Referral ID Status Reason Start Date Expiration Date V isits Requested Visits Authorized [id number] Authorized 08/10/2023 08/09/2024 1 1 Reason Comments 2yr. 8mos. Lt. lumpectomy Mamms due in F eb. FOR RECORDS PERTAINING TO PATIENTS WHO ARE [...] BE BASED ON THE PRIMARY CLINICAL RECORDS. [employer] provides no warranty or guarantee of the accuracy or completeness of information in this document.
== END 2024-10-28 08:07 | disposition home or self-care (01) ==
LOC: LAB 10-30 08:06
PROVIDERS: PCP Internal Medicine Rheumatology; Visit Provider Nurse Practitioner
DX: M05.79 Rheumatoid arthritis with rheumatoid factor of multiple sites without organ or systems involvement (principal)
CPT/HCPCS: 80048

== ENCOUNTER 2024-11-25 07:38 | Outpatient (RCR) | payer MEDICARE, OTHER, SELFPAY ==
[2024-11-25 10:26] VITALS: BP 155/78; PULSE 65; TEMP 36.6; O2SAT 98
== END 2024-12-13 23:59 | disposition home or self-care (01) ==
LOC: INF 07:38
PROVIDERS: Visit Provider Internal Medicine Rheumatology
DX: M05.89 Other rheumatoid arthritis with rheumatoid factor of multiple sites (principal)
CPT/HCPCS: 96365; J3262

== ENCOUNTER 2025-02-12 07:40 | Outpatient (RCR) | payer MEDICARE, OTHER, SELFPAY ==
[2025-01-29 11:55] VITALS: BP 130/66; PULSE 65; TEMP 36.4; O2SAT 98
[2025-01-29] MEDS: CEFTRIAXONE 2,000 MG in 0.9 % SODIUM CHLORIDE 100 ML 200 MG IV (12:00)
[2025-01-30 11:45] VITALS: BP 167/93; PULSE 58; TEMP 36.4; O2SAT 98
[2025-01-30] MEDS: CEFTRIAXONE 2,000 MG in 0.9 % SODIUM CHLORIDE 100 ML 200 MG IV (12:31)
[2025-01-31] MEDS: CEFTRIAXONE 2,000 MG in 0.9 % SODIUM CHLORIDE 100 ML 200 MG IV (09:20)
[2025-01-31 09:36] VITALS: BP 135/79; PULSE 78; TEMP 36.6; O2SAT 98
--- NOTE | 2025-01-31 09:44 | PC.NURSE ---
[id number]: No blood return noted to PICC line in KRISTOPHER. CXR completed on 01/30/25 does not address the tip of the PICC; call placed to radiologist for review. Message relayed to nurse that the tip is in the subclavian vein. Peripheral IV started in the left inner forearm with a 22 ga Insyte on first attempt; tolerated well. Antibiotic infusion initiated. PICC withdrawn to internal length of 12cm using aseptic technique resulting in conversion to a midline. CHG-impregnated dressing applied. Dr. Zee's office notified of above. Peripheral IV in left inner forearm to remain in for weekend infusions if midline is nonfunctional.
--- NOTE | 2025-01-31 11:28 | PC.NURSE ---
1125: Dr. Zee returned call. Explained that PICC was converted to midline. Verbalized understanding and is agreeable with plan to use for antibiotic infusions; no new orders received.
[2025-02-01] MEDS: CEFTRIAXONE 2,000 MG in 0.9 % SODIUM CHLORIDE 100 ML 200 MG IV (12:16)
[2025-02-02] MEDS: CEFTRIAXONE 2,000 MG in 0.9 % SODIUM CHLORIDE 100 ML 200 MG IV (12:02)
[2025-02-02 12:26] VITALS: BP 121/71; PULSE 63; TEMP 36.7; O2SAT 96
[2025-02-03 11:45] VITALS: BP 148/85; PULSE 64; TEMP 37.1; O2SAT 98
[2025-02-03] MEDS: CEFTRIAXONE 2,000 MG in 0.9 % SODIUM CHLORIDE 100 ML 200 MG IV (11:59)
--- NOTE | 2025-02-03 12:07 | PC.NURSE ---
1205: MICAELA Delgadillo in to assess RUE venous access with doppler ultrasound.
[2025-02-04 11:59] VITALS: BP 135/76; PULSE 61; TEMP 36.5; O2SAT 96
[2025-02-04] MEDS: CEFTRIAXONE 2,000 MG in 0.9 % SODIUM CHLORIDE 100 ML 200 MG IV (12:03)
[2025-02-05 11:40] VITALS: BP 132/72; PULSE 65; TEMP 36.5; O2SAT 100
[2025-02-05] MEDS: CEFTRIAXONE 2,000 MG in 0.9 % SODIUM CHLORIDE 100 ML 200 MG IV (11:50)
[2025-02-06 12:15] VITALS: BP 135/78; PULSE 58; TEMP 36.8; O2SAT 97
[2025-02-06] MEDS: CEFTRIAXONE 2,000 MG in 0.9 % SODIUM CHLORIDE 100 ML 200 MG IV (12:21)
[2025-02-07] MEDS: CEFTRIAXONE 2,000 MG in 0.9 % SODIUM CHLORIDE 100 ML 200 MG IV (12:05)
[2025-02-07 12:13] VITALS: BP 120/63; PULSE 63; TEMP 36.4; O2SAT 95
[2025-02-08] MEDS: CEFTRIAXONE 2,000 MG in 0.9 % SODIUM CHLORIDE 100 ML 200 MG IV (11:53)
[2025-02-08 11:58] VITALS: BP 135/75; PULSE 62; TEMP 36.1; O2SAT 100
[2025-02-09] MEDS: CEFTRIAXONE 2,000 MG in 0.9 % SODIUM CHLORIDE 100 ML 100 MG IV (11:58)
[2025-02-09 12:32] VITALS: BP 121/72; PULSE 65; TEMP 36.6; O2SAT 95
[2025-02-10 12:01] VITALS: BP 135/72; PULSE 80; TEMP 36.8; O2SAT 97
[2025-02-10] MEDS: CEFTRIAXONE 2,000 MG in 0.9 % SODIUM CHLORIDE 100 ML 200 MG IV (12:04)
[2025-02-11 11:48] VITALS: BP 115/70; PULSE 56; TEMP 36.6; O2SAT 96
[2025-02-11] MEDS: CEFTRIAXONE 2,000 MG in 0.9 % SODIUM CHLORIDE 100 ML 200 MG IV (11:50)
--- NOTE | 2025-02-12 11:54 | PC.NURSE ---
saline lock left upper forearm, no blood return, leaking dc'd catheter intact
[2025-02-12 11:56] VITALS: BP 146/68; PULSE 61; TEMP 36.6; O2SAT 97
[2025-02-12] MEDS: CEFTRIAXONE 2,000 MG in 0.9 % SODIUM CHLORIDE 100 ML 200 MG IV (11:57)
== END 2025-02-12 23:59 | disposition home or self-care (01) ==
LOC: INF 07:40
PROVIDERS: PCP Internal Medicine Rheumatology; Visit Provider Internal Medicine Infectious Disease
DX: T81.40XA Infection following a procedure, unspecified, initial encounter (principal)
CPT/HCPCS: 36410; 71045; 96365; C1887; J0696

== ENCOUNTER 2025-03-12 09:49 | Outpatient (RCR) | payer MEDICARE, OTHER, SELFPAY | END 2025-04-08 11:39 | disposition home or self-care (01) | LOC: PT 09:49 | PROVIDERS: PCP Internal Medicine Rheumatology; Visit Provider Orthopaedic Surgery | DX: M25.571 Pain in right ankle and joints of right foot (principal) | CPT/HCPCS: 97110; 97112; 97163; 97530 ==

== ENCOUNTER 2025-03-13 12:00 | Outpatient (RCR) | payer MEDICARE, OTHER, SELFPAY ==
[2025-02-13] MEDS: CEFTRIAXONE 2,000 MG in 0.9 % SODIUM CHLORIDE 100 ML 200 MG IV (11:52)
[2025-02-14] MEDS: CEFTRIAXONE 2,000 MG in 0.9 % SODIUM CHLORIDE 100 ML 200 MG IV (11:52)
[2025-02-14 11:54] VITALS: BP 108/61; PULSE 52; TEMP 36.7; O2SAT 100
--- NOTE | 2025-02-14 11:55 | PC.NURSE ---
rt upper arm midline has some bruising around insertion site. able to get a good blood return.
[2025-02-15 11:58] VITALS: BP 140/60; PULSE 55; TEMP 36.7; O2SAT 97
[2025-02-15] MEDS: CEFTRIAXONE 2,000 MG in 0.9 % SODIUM CHLORIDE 100 ML 200 MG IV (12:00)
[2025-02-16 11:52] VITALS: BP 100/66; PULSE 54; TEMP 36.4; O2SAT 96
[2025-02-16] MEDS: CEFTRIAXONE 2,000 MG in 0.9 % SODIUM CHLORIDE 100 ML 200 MG IV (12:10)
[2025-02-16 12:46] VITALS: BP 108/71; PULSE 55; TEMP 36.4; O2SAT 95
[2025-02-17 11:43] VITALS: BP 164/80; PULSE 59; TEMP 36.5; O2SAT 96
[2025-02-17] MEDS: CEFTRIAXONE 2,000 MG in 0.9 % SODIUM CHLORIDE 100 ML 200 MG IV (11:53)
[2025-02-18 11:44] VITALS: BP 177/73; PULSE 62; TEMP 36.4; O2SAT 96
[2025-02-18] MEDS: CEFTRIAXONE 2,000 MG in 0.9 % SODIUM CHLORIDE 100 ML 200 MG IV (11:46)
[2025-02-19 11:39] VITALS: BP 137/69; PULSE 51; TEMP 36.3; O2SAT 98
[2025-02-19] MEDS: CEFTRIAXONE 2,000 MG in 0.9 % SODIUM CHLORIDE 100 ML 200 MG IV (11:41)
[2025-02-20] MEDS: CEFTRIAXONE 2,000 MG in 0.9 % SODIUM CHLORIDE 100 ML 200 MG IV (11:41)
[2025-02-20 11:50] VITALS: PULSE 48; TEMP 36.2; O2SAT 98
--- NOTE | 2025-02-20 12:07 | PC.NURSE ---
1150 midline intact left upper arm, flushes easily unable to obtain blood return. old dressing removed. new stat lock and CHG dressing applied. sl reddness at insertion site. patient tolerated well. 0cm external catheter exposed.
[2025-02-21] MEDS: CEFTRIAXONE 2,000 MG in 0.9 % SODIUM CHLORIDE 100 ML 200 MG IV (11:40)
[2025-02-21 11:45] VITALS: BP 146/83; PULSE 53; TEMP 36.9; O2SAT 95
[2025-02-22 11:46] VITALS: BP 130/78; PULSE 53; TEMP 36.4
[2025-02-22] MEDS: CEFTRIAXONE 2,000 MG in 0.9 % SODIUM CHLORIDE 100 ML 200 MG IV (11:52)
[2025-02-23 11:49] VITALS: BP 141/82; PULSE 54; TEMP 36.5
[2025-02-23] MEDS: CEFTRIAXONE 2,000 MG in 0.9 % SODIUM CHLORIDE 100 ML 200 MG IV (11:51)
[2025-02-24 11:44] VITALS: BP 128/73; PULSE 56; TEMP 36.3; O2SAT 97
[2025-02-24] MEDS: CEFTRIAXONE 2,000 MG in 0.9 % SODIUM CHLORIDE 100 ML 200 MG IV (11:49)
[2025-02-25 11:43] VITALS: BP 122/58; PULSE 58; TEMP 36.8; O2SAT 97
[2025-02-25] MEDS: CEFTRIAXONE 2,000 MG in 0.9 % SODIUM CHLORIDE 100 ML 200 MG IV (11:47)
[2025-02-26 11:43] VITALS: BP 142/65; PULSE 60; TEMP 37; O2SAT 96
[2025-02-26] MEDS: CEFTRIAXONE 2,000 MG in 0.9 % SODIUM CHLORIDE 100 ML 200 MG IV (11:47)
[2025-02-27] MEDS: CEFTRIAXONE 2,000 MG in 0.9 % SODIUM CHLORIDE 100 ML 200 MG IV (11:48)
[2025-02-27 11:49] VITALS: BP 118/72; PULSE 56; TEMP 36.1; O2SAT 98
[2025-02-28 11:45] VITALS: BP 124/76; PULSE 54; TEMP 36.2; O2SAT 95
[2025-02-28] MEDS: CEFTRIAXONE 2,000 MG in 0.9 % SODIUM CHLORIDE 100 ML 200 MG IV (11:50)
[2025-03-01] MEDS: CEFTRIAXONE 2,000 MG in 0.9 % SODIUM CHLORIDE 100 ML 200 MG IV (11:55)
[2025-03-01 12:00] VITALS: BP 108/51; PULSE 82; TEMP 36.8; O2SAT 95
[2025-03-02 11:57] VITALS: BP 143/81; PULSE 58; TEMP 36.8; O2SAT 98
[2025-03-02] MEDS: CEFTRIAXONE 2,000 MG in 0.9 % SODIUM CHLORIDE 100 ML 200 MG IV (12:03)
[2025-03-04 11:50] VITALS: PULSE 60; TEMP 36.1; O2SAT 96
[2025-03-04] MEDS: CEFTRIAXONE 2,000 MG in 0.9 % SODIUM CHLORIDE 100 ML 200 MG IV (11:54)
--- NOTE | 2025-03-04 12:03 | PC.NURSE ---
Midline to right upper arm flushed with ease, yet no blood return noted. Patient reports have rarely gotten blood return. Infusion started as ordered. Patient voices no complaints of the site.
[2025-03-05 11:43] VITALS: BP 136/78; PULSE 54; TEMP 36.1; O2SAT 96
[2025-03-05] MEDS: CEFTRIAXONE 2,000 MG in 0.9 % SODIUM CHLORIDE 100 ML 200 MG IV (11:51)
[2025-03-06 11:40] VITALS: BP 116/78; PULSE 60; TEMP 36.3; O2SAT 96
[2025-03-06] MEDS: CEFTRIAXONE 2,000 MG in 0.9 % SODIUM CHLORIDE 100 ML 200 MG IV (11:50)
[2025-03-07 11:40] VITALS: BP 168/74; PULSE 57; TEMP 36.6; O2SAT 98
[2025-03-07] MEDS: CEFTRIAXONE 2,000 MG in 0.9 % SODIUM CHLORIDE 100 ML 200 MG IV (11:43)
[2025-03-08] MEDS: CEFTRIAXONE 2,000 MG in 0.9 % SODIUM CHLORIDE 100 ML 200 MG IV (12:00)
[2025-03-08 12:02] VITALS: BP 135/95; PULSE 56; TEMP 36.7; O2SAT 95
[2025-03-09 11:49] VITALS: BP 139/74; PULSE 64; TEMP 36.7; O2SAT 96
[2025-03-09] MEDS: CEFTRIAXONE 2,000 MG in 0.9 % SODIUM CHLORIDE 100 ML 200 MG IV (11:54)
[2025-03-09 12:27] VITALS: BP 128/77; PULSE 59; TEMP 36.6; O2SAT 96
[2025-03-10 11:55] VITALS: BP 154/70; PULSE 57; TEMP 36.6; O2SAT 98
[2025-03-10] MEDS: CEFTRIAXONE 2,000 MG in 0.9 % SODIUM CHLORIDE 100 ML 200 MG IV (12:23)
[2025-03-11 11:50] VITALS: BP 150/72; PULSE 68; TEMP 36.3; O2SAT 93
[2025-03-11] MEDS: CEFTRIAXONE 2,000 MG in 0.9 % SODIUM CHLORIDE 100 ML 200 MG IV (11:50)
[2025-03-12 11:52] VITALS: BP 142/65; PULSE 59; TEMP 36.6; O2SAT 95
[2025-03-12] MEDS: CEFTRIAXONE 2,000 MG in 0.9 % SODIUM CHLORIDE 100 ML 200 MG IV (11:57)
--- NOTE | 2025-03-12 11:57 | PC.NURSE ---
on arrival #24 iv catheter intact right inner forearm, was started 03/11/25. flushed, line infiltrated. dc'd catheter intact 2x2 and bandaid applied. tolerated well
[2025-03-13] MEDS: CEFTRIAXONE 2,000 MG in 0.9 % SODIUM CHLORIDE 100 ML 200 MG IV (11:48)
[2025-03-13 11:51] VITALS: BP 169/90; PULSE 56; TEMP 36.9; O2SAT 97
== END 2025-03-15 23:59 | disposition home or self-care (01) ==
LOC: INF 12:00
PROVIDERS: PCP Internal Medicine Rheumatology; Visit Provider Internal Medicine Infectious Disease
DX: T81.40XA Infection following a procedure, unspecified, initial encounter (principal)
CPT/HCPCS: 96365; J0696

== ENCOUNTER 2025-04-02 14:08 | Outpatient (OUT) | payer MEDICARE, OTHER, SELFPAY ==
--- NOTE | 2025-04-02 | CT_ITS ---
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 This CT exam was performed using one or more following dose reduction techniques: Automated exposure control, adjustment of the mA and/or kV according to patient size, or use of iterative reconstruction technique. FINDINGS: Mediastinum:Thoracic aorta appears normal in caliber. Pulmonary trunk appears nondilated. No pleural effusion or lymphadenopathy. The esophagus is grossly unremarkable. Small hiatal hernia. Lungs:Mild peripheral reticular changes. No honeycombing. No consolidation pneumothorax or pleural effusion. Mild bronchial wall thickening. No suspicious pulmonary nodule or mass. Abd:No acute findings. Soft tissues/Bones: Presumed posttreatment changes left breast. Osseous structures demonstrate degenerative change. CT/CT chest wo con IMPRESSION: Mild reticular/fibrotic changes involving the lungs similar to the 02/23/2024 study. No acute process is seen. Impression dictated by: Jefe Khan Jr., D.O. 04/02/2025 2:43 PM Dictation Location: [facility] CENTERMicro[facility] Electronically authenticated by: [id number] Date: 04/02/2025 14:43
== END 2025-04-02 14:09 | disposition home or self-care (01) ==
LOC: CT 14:09
PROVIDERS: PCP Internal Medicine Rheumatology; Visit Provider Internal Medicine
DX: M05.10 Rheumatoid lung disease with rheumatoid arthritis of unspecified site (principal)
CPT/HCPCS: 71250